=== PATIENT | male | born 1985 | race Caucasian/White ===

== ENCOUNTER 2021-07-17 18:01 | Inpatient (IN) ==
--- NOTE | 2021-07-17 18:02 | Emergency Department Note ---
Impression & Plan Acute hyponatremia, Syncope, CHI (closed head injury), Laceration of scalp, Alcohol use, Hypercalcemia, Transaminitis ED Provider Note NAME: CHARLINE PALMER AGE: 36 SEX: M : 1985 ARRIVES VIA: Ambulance INFORMANT: Patient, ED PROVIDER(S): Emery Heredia MD Chief Complaint: Fall, possible seizure HPI: Patient does present from [facility] as the patient was trying to obtain some supplements as the patient has been having some bilateral upper and lower extremity spasms. The patient reportedly was found down in the middle of and I will there was a thought that the patient may have had some seizure-like a ctivity. Patient does have some posterior occipital head pain which is with palpation given his recent fall. The patient also thinks that he may have bit his lip. Patient denies any tongue biting or incontinence. No prior history of seizures but the patient does typically drink a sixpack a day and did drink today. Patient does have some chronic back pain. Patient denies any fevers or chills. The patient does use tobacco but denies any drug use. The patient is vaccinated for COVID-19. Patient denies any nausea vomiting. Patient denies any abdominal pain. The patient other than the cramping does not complain of any numbness tingling or focal weakness. The patient denies any neck pain. Denies any slurred speech or facial droop. ROS: See HPI for pertinent positives and negatives. A total of 10 systems were reviewed and otherwise negative. Past medical history: See below Surgical history: See below Social history: See below Physical Exam: GENERAL: No apparent distress. EYE EXAM: Normal conjunctiva. PERRL, no anisocoria and EOM's grossly intact w/o pain. Head: Matted blood to the left posterior head with laceration approximately 1 cm. Scant bleeding noted. [OROPHARYNX: Moist mucus membranes. Grossly normal dentition. Slight abrasion to the inner portion of the inferior lip but without laceration. NECK: Supple, no nuchal rigidity, no adenopathy, non-tender. No signs of meningismus. FROM of the neck with good chin to chest and neck extension. No stridor. LUNGS: Clear to auscultation. Normal chest wall mechanics. HEART: NSR, no MRG. ABDOMEN: Abdomen soft, non-tender, normo-active bowel sounds, no masses, no rebound or guarding. BACK: No CVA TTP. SKIN: No rashes and no bruising. UPPER EXTREMITIES: Upper extremities are grossly normal. No obvious deformity o r TTP LOWER EXTREMITIES: Grossly normal, no edema. No obvious deformity or TTP. NEURO EXAM: A&O x3, cranial nerves II-XII grossly intact, normal speech, moves all 4 extremities on command w/o issue. Good finger to nose, no drift, no sensory deficits. Differential diagnoses: Epilepsy, infection, hypoglycemia, electrolyte abnormalities, cardiac sources, intracerebral event, trauma, toxicologic, n eurologic, syncope, as well as other pathologies. Course: Patient was seen and evaluated the bedside. Full history physical exam was performed. EKG interpreted by me Normal sinus rhythm, rate of 86, normal intervals, normal axis, T wave inversion in V2, T wave inversion in aVL. Not in contiguous leads Imaging Studies: See Below Cardiac monitoring: An order was placed for continuous cardiac monitoring. The monitor shows a rate of 92 with sinus rhythm. Procedures: Laceration repair performed by Dr. Heredia Location: Left occipital area Total length: 1 cm Complexity: Simple Verbal consent was obtained after the risks and benefits were explained, including but not limited to bleeding, scarring, infection, pain, and bone/joint/nerve damage. At this time, the risks of the procedure are less than the risks of NOT performing the procedure. A time out was taken and the correct patient and site identified. The skin was prepped with betadine. Copious irrigation was performed using soap and water. The skin was re-prepped with betadine and a sterile field set. The wound was explored for foreign bodies and none found. Examination revealed no injury to deep structures such as tendons, bone, or significant blood vessels. Debridement was not performed. The wound edges were approximated using 2 delores. Hemostasis and excellent approximation was achieved. Detailed wound care instructions and signs and symptoms of infection reviewed with the patient. No complications and the patient tolerated the procedure well. MDM: Patient did present due to concern for possible seizure and closed head injury. The patient does drink 6 pack daily. Blood work was obtained along with CT head and cervical spine. Patient's tetanus is up-to-date. Patient was given some At tate. Patient is white count of 11 with a normal H&H and platelet count. There was significant delay in obtaining the patient's electrolytes. The patient does have hyponatremia hypochloremia with slightly lower bicarb and anion gap. This may be consistent with dehydration and/or alcohol use. The patient does have mild transaminitis. Alcohol undetectable Covid negative. Patient CT head and cervical spine with no acute fracture dislocation or subluxation. Patient was given Librium and an additional dose of Ativan. The patient's scalp laceration was repaired. Nicotine patch was ordered. Given the patient's seizure hyponatremia and electrolyte abnormalities I did speak with the on-call hospitalist Dr. Mckeon and the patient was admitted to the medicine service. Past Med/Surg History Medical History No pertinent past medical history Surgical History No pertinent past surgical history Social History Smoking Status: Current every day smoker Tobacco Type: Cigarettes Hx Alcohol Use: Yes Hx Substance Use: No Immunizations: Vaccinated for COVID-19 Allergies Allergies Allergy/AdvReac Type Severity Reaction Status Date / Time No Known Allergies Allergy Verified 07/17/21 19:05 Home Meds Home Medications Medication Instructions Recorded Confirmed ibuprofen 200 mg tablet (Advil) 200 mg PO DIRECTED PRN 07/17/21 07/17/21 Results & Data (ED) Vital Signs Vital Signs - 24 hr 07/17/21 18:14 07/17/21 18:18 07/17/21 19:07 Temperature 37.0 C Temperature Source Oral Pulse Rate 93 H Pulse Rate [Left Radial] Pulse Rhythm Regular Pulse Rhythm [Left Radial] Pulse Strength Normal Pulse Strength [Left Radial] Respiratory Rate 23 14 Respiratory Effort / Characteristics Non-Labored Non-Labored Respiratory Depth Normal Normal Respiratory Pattern Regular Regular Blood Pressure 155/88 H 120/68 Blood Pressure [Left Arm] Blood Pressure Mean 110 85 Blood Pressure Mean [Left Arm] Blood Pressure Position Lying Blood Pressure Position [Left Arm] Pulse Oximetry 98 98 Oxygen Delivery Method Room Air Room Air Sepsis Recent Fever Within 48 Hours No Sepsis New/Unexplained Change in Mental Status No Sepsis Action Taken by Nursing No Action Required 07/17/21 19:30 07/17/21 20:00 07/17/21 20:01 Temperature Temperature Source Pulse Rate 83 Pulse Rate [Left Radial] 97 H Pulse Rhythm Pulse Rhythm [Left Radial] Regular Pulse Strength Pulse Strength [Left Radial] Normal Respiratory Rate 21 Respiratory Effort / Characteristics Non-Labored Respiratory Depth Normal Respiratory Pattern Regular Blood Pressure 129/68 138/74 Blood Pressure [Left Arm] 137/66 Blood Pressure Mean 88 95 Blood Pressure Mean [Left Arm] 89 Blood Pressure Position Blood Pressure Position [Left Arm] Lying Pulse Oximetry 98 Oxygen Delivery Method Room Air Sepsis Recent Fever Within 48 Hours Sepsis New/Unexplained Change in Mental Status Sepsis Action Taken by Nursing 07/17/21 20:20 07/17/21 21:00 Temperature Temperature Source Pulse Rate 92 H Pulse Rate [Left Radial] Pulse Rhythm Pulse Rhythm [Left Radial] Pulse Strength Pulse Strength [Left Radial] Respiratory Rate 21 Respiratory Effort / Characteristics Respiratory Depth Respiratory Pattern Blood Pressure 137/66 Blood Pressure [Left Arm] Blood Pressure Mean 89 Blood Pressure Mean [Left Arm] Blood Pressure Position Blood Pressure Position [Left Arm] Pulse Oximetry Oxygen Delivery Method Sepsis Recent Fever Within 48 Hours Sepsis New/Unexplained Change in Mental Status Sepsis Action Taken by Long Term Medications Current Medication List: was personally reviewed by me Laboratory Data Attestation: I reviewed the patient's lab results. Result diagrams: 07/17/21 18:13 07/17/21 20:32 Lab Results 07/17/21 07/17/21 07/17/21 Range/Units 18:11 18:13 18:13 WBC 11.80 H (4.8-10.8) K/uL RBC 4.45 L (4.7-6.1) M/uL Hgb 15.3 (14.0-18.0) g/dL Hct 42.3 (42-52) % MCV 95.1 (80-100) fL MCH 34.4 H (25-34) pg MCHC 36.2 H (32-36) g/dL RDW Std Deviation 40.6 (36.4-46.3) fL RDW Coeff of Randall 11.6 (11.5-14.5) % Plt Count 165 (130-400) K/uL MPV 10.3 (7.4-10.4) fL Immature Gran % (Auto) 0.1 % Neut % (Auto) 73.8 % Lymph % (Auto) 11.5 % Citrus % (Auto) 14.0 % Eos % (Auto) 0.5 % Baso % (Auto) 0.1 % Neut # (Auto) 8.71 H (1.4-6.5) K/uL Lymph # (Auto) 1.36 (1.2-3.4) K/uL Citrus # (Auto) 1.65 H (0.11-0.59) K/uL Eos # (Auto) 0.06 (0-0.5) K/uL Baso # (Auto) 0.01 (0-0.2) K/uL Immature Gran # (Auto) 0.01 (0.00-0.02) K/uL PT (9.0-12.0) Seconds INR (0.9-1.1) Sodium 120 L (136-145) mmol/L Potassium (3.5-5.1) mmol/L Chloride 80 L (98-107) mmol/L Carbon Dioxide 18 L (21-32) mmol/L Anion Gap 22 H (3-11) BUN 9 (6-23) mg/dl Creatinine 0.92 (0.6-1.4) mg/dl Est Cr Clr Drug Dosing 101.2 ml/min Est GFR ( Amer) 121.9 ml/min Est GFR (Non-Af Amer) 105.1 ml/min BUN/Creatinine Ratio 9.8 L (10-20) Glucose 117 H (70-99(Fasting)) mg/dl POC Glucose 119 H (70-99) mg/dl Osmolality (280-300) mOsm/kg Calcium 10.3 H (8.5-10.1) mg/dl Phosphorus 3.8 (2.5-4.9) mg/dl Magnesium 2.2 (1.7-2.4) mg/dl Total Bilirubin 1.3 H (0.2-1.0) mg/dl AST (13-39) U/L ALT 55 H (7-52) U/L Alkaline Phosphatase 109 H (34-104) U/L Total Creatine Kinase 743 H (30-223) U/L Total Protein 8.2 (6.0-8.3) gm/dl Albumin 5.1 H (3.4-5.0) gm/dl Globulin 3.1 (2.5-4.0) gm/dl Albumin/Globulin Ratio 1.6 (0.9-2) TSH (0.300-4.500) uIu/ml Ethyl Alcohol mg/dL (<10.0) mg/dl SARS-CoV-2, RNA, NAAT (NEGATIVE) 07/17/21 07/17/21 07/17/21 Range/Units 18:13 19:35 20:32 WBC (4.8-10.8) K/uL RBC (4.7-6.1) M/uL Hgb (14.0-18.0) g/dL Hct (42-52) % MCV (80-100) fL MCH (25-34) pg MCHC (32-36) g/dL RDW Std Deviation (36.4-46.3) fL RDW Coeff of Randall (11.5-14.5) % Plt Count (130-400) K/uL MPV (7.4-10.4) fL Immature Gran % (Auto) % Neut % (Auto) % Lymph % (Auto) % Citrus % (Auto) % Eos % (Auto) % Baso % (Auto) % Neut # (Auto) (1.4-6.5) K/uL Lymph # (Auto) (1.2-3.4) K/uL Citrus # (Auto) (0.11-0.59) K/uL Eos # (Auto) (0-0.5) K/uL Baso # (Auto) (0-0.2) K/uL Immature Gran # (Auto) (0.00-0.02) K/uL PT 10.0 (9.0-12.0) Seconds INR 1.0 (0.9-1.1) Sodium (136-145) mmol/L Potassium 4.1 (3.5-5.1) mmol/L Chloride (98-107) mmol/L Carbon Dioxide (21-32) mmol/L Anion Gap (3-11) BUN (6-23) mg/dl Creatinine (0.6-1.4) mg/dl Est Cr Clr Drug Dosing ml/min Est GFR ( Amer) ml/min Est GFR (Non-Af Amer) ml/min BUN/Creatinine Ratio (10-20) Glucose (70-99(Fasting)) mg/dl POC Glucose (70-99) mg/dl Osmolality (280-300) mOsm/kg Calcium (8.5-10.1) mg/dl Phosphorus (2.5-4.9) mg/dl Magnesium (1.7-2.4) mg/dl Total Bilirubin (0.2-1.0) mg/dl AST 75 H (13-39) U/L ALT (7-52) U/L Alkaline Phosphatase (34-104) U/L Total Creatine Kinase (30-223) U/L Total Protein (6.0-8.3) gm/dl Albumin (3.4-5.0) gm/dl Globulin (2.5-4.0) gm/dl Albumin/Globulin Ratio (0.9-2) TSH (0.300-4.500) uIu/ml Ethyl Alcohol mg/dL < 10.0 (<10.0) mg/dl SARS-CoV-2, RNA, NAAT (NEGATIVE) 07/17/21 07/17/21 07/17/21 Range/Units 21:03 21:31 21:31 WBC (4.8-10.8) K/uL RBC (4.7-6.1) M/uL Hgb (14.0-18.0) g/dL Hct (42-52) % MCV (80-100) fL MCH (25-34) pg MCHC (32-36) g/dL RDW Std Deviation (36.4-46.3) fL RDW Coeff of Randall (11.5-14.5) % Plt Count (130-400) K/uL MPV (7.4-10.4) fL Immature Gran % (Auto) % Neut % (Auto) % Lymph % (Auto) % Citrus % (Auto) % Eos % (Auto) % Baso % (Auto) % Neut # (Auto) (1.4-6.5) K/uL Lymph # (Auto) (1.2-3.4) K/uL Citrus # (Auto) (0.11-0.59) K/uL Eos # (Auto) (0-0.5) K/uL Baso # (Auto) (0-0.2) K/uL Immature Gran # (Auto) (0.00-0.02) K/uL PT (9.0-12.0) Seconds INR (0.9-1.1) Sodium (136-145) mmol/L Potassium (3.5-5.1) mmol/L Chloride (98-107) mmol/L Carbon Dioxide (21-32) mmol/L Anion Gap (3-11) BUN (6-23) mg/dl Creatinine (0.6-1.4) mg/dl Est Cr Clr Drug Dosing ml/min Est GFR ( Amer) ml/min Est GFR (Non-Af Amer) ml/min BUN/Creatinine Ratio (10-20) Glucose (70-99(Fasting)) mg/dl POC Glucose (70-99) mg/dl Osmolality 258 L (280-300) mOsm/kg Calcium (8.5-10.1) mg/dl Phosphorus (2.5-4.9) mg/dl Magnesium (1.7-2.4) mg/dl Total Bilirubin (0.2-1.0) mg/dl AST (13-39) U/L ALT (7-52) U/L Alkaline Phosphatase (34-104) U/L Total Creatine Kinase (30-223) U/L Total Protein (6.0-8.3) gm/dl Albumin (3.4-5.0) gm/dl Globulin (2.5-4.0) gm/dl Albumin/Globulin Ratio (0.9-2) TSH 0.729 (0.300-4.500) uIu/ml Ethyl Alcohol mg/dL (<10.0) mg/dl SARS-CoV-2, RNA, NAAT NEGATIVE (NEGATIVE) Administered Medications Discontinued Medications Acetaminophen (Acetaminophen 500 Mg Tab) 1,000 mg PO NOW STA Stop: 07/17/21 20:51 Last Admin: 07/17/21 21:00 Dose: 1,000 mg Documented by: [id number] Chlordiazepoxide HCl (Chlordiazepoxide Hcl 25 Mg Cap) 50 mg PO NOW ONE Stop: 07/17/21 20:51 Last Admin: 07/17/21 21:00 Dose: 50 mg Documented by: [id number] Gabapentin (Gabapentin 600 Mg Tab) 1,200 mg PO NOW STA Stop: 07/17/21 21:57 Last Admin: 07/17/21 22:18 Dose: 1,200 mg Documented by: [id number] Gabapentin (Gabapentin 1200mg Alcohol Withdrawal Load) 1 ea PO NOW STA; Protocol Stop: 07/17/21 22:17 Last Admin: 07/17/21 22:18 Dose: 1 ea Documented by: [id number] Multivitamins 10 ml/ Thiamine HCl 100 mg/ Folic Acid 1 mg/Sodium Chloride 1,011.2 mls @ 1,011.2 mls/hr IV .Q1H ONE Stop: 07/17/21 19:14 Last Infusion: 07/17/21 20:12 Dose: 0 mls/hr Documented by: [id number] Admin: 07/17/21 18:59 Dose: 1,011.2 mls/hr Documented by: [id number] Lorazepam (Ativan) 0.5 mg in 1 mls @ 1 mls/min IV NOW STA Stop: 07/17/21 18:18 Last Admin: 07/17/21 18:28 Dose: 1 mls/min Documented by: [id number] Lorazepam (Ativan) 0.5 mg in 1 mls @ 1 mls/min IV NOW STA Stop: 07/17/21 20:51 Last Admin: 07/17/21 20:59 Dose: 1 mls/min Documented by: [id number] Nicotine (Nicotine 21 Mg/24 Hr Tdsy) 21 mg TD NOW STA Stop: 07/17/21 20:52 Last Admin: 07/17/21 20:59 Dose: 21 mg Documented by: [id number] Imaging Data Radiologist's Impression: Cervical Spine CT 07/17/21 18:15 CT cervical spine wo con CT DOSE: 1368.57 mGy.cm CLINICAL HISTORY: 36 years-old Male with fall, seizure activity. Acute head and neck injury status post fall COMPARISON: Head CT of same day TECHNIQUE: Multiple axial CT images of the cervical spine were obtained without contrast. A dose lowering technique was utilized adhering to the principles of ALARA. FINDINGS: Multilevel mild intervertebral disc space narrowing with mild to moderate uncovertebral spurring and small posterior disc osteophyte complex formations. Minimal facet arthrosis. Mild C1-C2 degeneration. Mild multilevel neuroforaminal narrowing.. The cervical soft tissues appear unremarkable. Biapical pleural-parenchymal scarring. No pneumothorax. IMPRESSION: No acute cervical spine fracture or subluxation. ACT 112: Negative or not required by law. The above report was generated using voice recognition software. It may contain grammatical, syntax or spelling errors. Electronically signed by: Esa Cruz M.D. 07/17/2021 7:[address] 07/17/21 18:15 CT head/brain wo con CLINICAL HISTORY: 36 years-old Male with fall, occipital head strike, seizure activity. Acute head injury status post fall TECHNIQUE: Multiple axial CT images of the head were obtained without contrast. A dose lowering technique was utilized adhering to the principles of ALARA. COMPARISON: CT cervical spine of same day FINDINGS: No acute intracranial hemorrhage, midline shift, intracranial mass, hydrocephalus, territorial ischemia or abnormal extra-axial collection. The calvarium is intact. Left parietal scalp hematoma measures 9.0 x 1.2 cm The paranasal sinuses, mastoid air cells, and middle ear cavities are clear. IMPRESSION: 1. No acute intracranial abnormality or calvarial fracture. 2. Moderate sized left parietal scalp hematoma. ACT 112: Negative or not required by law. The above report was generated using voice recognition software. It may contain grammatical, syntax or spelling errors. Electronically signed by: Esa Cruz M.D. 07/17/2021 7:02 PM Chest X-Ray 07/17/21 21:13 XR chest 1V portable HISTORY: 36 years-old Male hyponatremia COMPARISON: None TECHNIQUE: Portable AP view of the chest FINDINGS: The cardiomediastinal and hilar silhouettes are within normal limits. No pneumothorax, pleural effusion, airspace consolidation or overt pulmonary edema. The bones of the chest appear grossly intact. IMPRESSION: No acute process. ACT 112: Negative or not required by law. The above report was generated using voice recognition software. It may contain grammatical, syntax or spelling errors. Electronically signed by: Esa Cruz M.D. 07/17/2021 10:07 PM Discharge Plan Visit Data Chief Complaint: Syncope ED Provider: Emery Heredia Discharge Problem: Acute hyponatremia, Syncope, CHI (closed head injury), Laceration of scalp, Alcohol use, Hypercalcemia, Transaminitis Patient Disposition: Admitted As Inpatient Discharge Instructions Interventions: ED Discharge Assessment Last Done: 07/17/21 23:41
[2021-07-17] MEDS ORDERED: MULTI-VITAMIN INFUSION 10 ML, THIAMINE HCL 100 MG, FOLIC ACID 1 MG in SODIUM CHLORIDE 0... IV ONE (18:15)
[2021-07-17] MEDS ORDERED: LORazepam 0.5 MG/1 ML VIAL IV STA ×2 (18:17→20:50)
[2021-07-17 18:22] LABS: Basophils # (auto) 0.01 K/uL (0-0.2); Basophils % (auto) 0.1 %; Eosinophils # (auto) 0.06 K/uL (0-0.5); Eosinophils % (auto) 0.5 %; Hematocrit (blood only) 42.3 % (42-52); Hemoglobin 15.3 g/dL (14.0-18.0); Immature Granulocytes # (auto) 0.01 K/uL (0.00-0.02); Immature Granulocytes % (auto) 0.1 %; Lymphocytes # (auto) 1.36 K/uL (1.2-3.4); Lymphocytes % (auto) 11.5 %; Mean Corpuscular Hemoglobin 34.4 pg (25-34); Mean Corpuscular Hgb Conc 36.2 g/dL (32-36); Mean Corpuscular Volume 95.1 fL (80-100); Mean Platelet Volume 10.3 fL (7.4-10.4); Monocytes # (auto) 1.65 K/uL (0.11-0.59); Neutrophils # (auto) 8.71 K/uL (1.4-6.5); Neutrophils % (auto) 73.8 %; Platelet Count 165 K/uL (130-400); RDW Coefficient of Variation 11.6 % (11.5-14.5); RDW Standard Deviation 40.6 fL (36.4-46.3); Red Blood Count 4.45 M/uL (4.7-6.1)
--- NOTE | 2021-07-17 19:04 | CT Scan Report ---
CT head/brain wo con CLINICAL HISTORY: 36 years-old Male with fall, occipital head strike, seizure activity. Acute head i njury status post fall TECHNIQUE: Multiple axial CT images of the head were obtained without contrast. A dose lowering tech nique was utilized adhering to the principles of ALARA. COMPARISON: CT cervical spine of same day FINDINGS: No acute intracranial hemorrhage, midline shift, intracranial mass, hydrocephalus, territorial ischem ia or abnormal extra-axial collection. The calvarium is intact. Left parietal scalp hematoma measures 9.0 x 1.2 cm The paranasal sinuses, ma stoid air cells, and middle ear cavities are clear. IMPRESSION: 1. No acute intracranial abnormality or calvarial fracture. 2. Moderate sized left parietal scalp hematoma. ACT 112: Negative or not required by law. The above report was generated using voice recognition software. It may contain grammatical, syntax o r spelling errors. Electronically signed by: Esa Cruz M.D. 07/17/2021 7:02 PM
--- NOTE | 2021-07-17 19:07 | CT Scan Report ---
CT cervical spine wo con CT DOSE: 1368.57 mGy.cm CLINICAL HISTORY: 36 years-old Male with fall, seizure activity. Acute head and neck injury status p ost fall COMPARISON: Head CT of same day TECHNIQUE: Multiple axial CT images of the cervical spine were obtained without contrast. A dose low ering technique was utilized adhering to the principles of ALARA. FINDINGS: Multilevel mild intervertebral disc space narrowing with mild to moderate uncovertebral spu rring and small posterior disc osteophyte complex formations. Minimal facet arthrosis. Mild C1-C2 deg eneration. Mild multilevel neuroforaminal narrowing.. The cervical soft tissues appear unremarkable. Biapical pleural-parenchymal scarring. No pneumothora x. IMPRESSION: No acute cervical spine fracture or subluxation. ACT 112: Negative or not required by law. The above report was generated using voice recognition software. It may contain grammatical, syntax o r spelling errors. Electronically signed by: Esa Cruz M.D. 07/17/2021 7:05 PM
[2021-07-17 20:11] LABS: Albumin Globulin Ratio 1.6 (0.9-2); Albumin Level 5.1 gm/dl (3.4-5.0); BUN Creatinine Ratio 9.8 (10-20); Bilirubin,Total 1.3 mg/dl (0.2-1.0); Calcium 10.3 mg/dl (8.5-10.1); Creatinine Clr Calc Pharmacy 101.2 ml/min; Est GFR (African American) 121.9 ml/min; Est GFR (Non-African American) 105.1 ml/min; Globulin 3.1 gm/dl (2.5-4.0); Magnesium 2.2 mg/dl (1.7-2.4); Phosphorus 3.8 mg/dl (2.5-4.9); Total Protein 8.2 gm/dl (6.0-8.3)
[2021-07-17] MEDS ORDERED: chlordiazePOXIDE HCl 25 MG CAP PO ONE (20:50)
[2021-07-17] MEDS ORDERED: ACETAMINOPHEN 500 MG TAB PO STA (20:50)
[2021-07-17] MEDS ORDERED: NICOTINE 21 MG/24 HR TDSY TD STA (20:51)
[2021-07-17 21:02] LABS: Potassium 4.1 mmol/L (3.5-5.1)
[2021-07-17] MEDS ORDERED: GABAPENTIN 600 MG TAB PO STA (21:56)
--- NOTE | 2021-07-17 22:08 | XRay Report ---
XR chest 1V portable HISTORY: 36 years-old Male hyponatremia COMPARISON: None TECHNIQUE: Portable AP view of the chest FINDINGS: The cardiomediastinal and hilar silhouettes are within normal limits. No pneumothorax, pleural effusi on, airspace consolidation or overt pulmonary edema. The bones of the chest appear grossly intact. IMPRESSION: No acute process. ACT 112: Negative or not required by law. The above report was generated using voice recognition software. It may contain grammatical, syntax o r spelling errors. Electronically signed by: Esa Cruz M.D. 07/17/2021 10:07 PM
--- NOTE | 2021-07-17 22:10 | History & Physical Report ---
Date of Service July 17, 2021 Assessment & Plan (1) New onset seizure: Plan: Likely alcohol withdrawal seizures Threshold probably lowered by hyponatremia Alcoholic hepatitis, good prognosis with negative Maddrey's DF score Ongoing tobacco abuse PCU Seizure precautions Ativan as needed active seizures EEG, MRI brain for seizure work-up Neurology consult Re: New onset seizures KENNY S, DT precautions Careful correction of sodium Hyponatremia work-up Nephrology consult if with worsening Nicotine patch DVT prophylaxis. SCDs Re: Traumatic bleeding scalp wound Full code Text document was generated using [employer] voice recognition software. It may contain grammatical or spelling errors. Kindly contact undersigned for clarification of any documentation item in question. History of Present Illness Chief Complaint: Blacked out Primary Care Provider: NO PCP History obtained from patient and records. Medical history significant for alcohol and tobacco abuse. Patient noted had a syncopal event at [facility] this afternoon. Upper and lower extremity spasms noted. Patient thinks he might have bit his lip. No incontinence symptoms. Bleeding posterior head wound from head trauma. Patient denies chest pain, S OB. No prior episodes. Last drink was this morning. Patient emembers waking up in the ambulance on route to the hospital. Scalp wound repaired at the ER. 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 Allergies Allergy/AdvReac Type Severity Reaction Status Date / Time No Known Allergies Allergy Verified 07/17/21 19:05 Home Medications Medication Instructions Recorded Confirmed Type ibuprofen 200 mg tablet (Advil) 200 mg PO DIRECTED PRN 07/17/21 07/17/21 History Past Med/Surg History Medical History No pertinent past medical history Surgical History No pertinent past surgical history Social History Smoking Status: Current every day smoker Tobacco Type: Cigarettes Hx Alcohol Use: Yes Alcohol type: beer Hx Substance Use: No Feels Safe at Home: Yes Safety Concerns: Feels Safe At This Time Review of Systems Review of Systems: As per HPI, all 10 systems reviewed, all other ROS negative Physical Exam Physical Exam: GENERAL: Tremulous, no respiratory distress SKIN: Normal color, warm HEENT: Repaired posterior scalp wound with dried blood [place] palpebral conjunctivae, no ptosis, dry buccal mucosa NECK : Supple, no tenderness CHEST : Decreased breath sounds, expiratory wheezes, no tenderness HEART : RRR, no obvious murmurs ABDOMEN: no distention, nontender EXTREMITIES : No LE swelling/tenderness, no other conspicuous deformities noted NEUROLOGIC : coherent, no facial asymmetry, tremulous, no other gross focality Results & Data Results & Data ([facility]) Vital Signs (Past 12 Hours) Vital Signs Temp Pulse Pulse Resp BP BP Pulse Ox 07/17/21 21:00 137/66 07/17/21 20:20 92 H 21 07/17/21 20:01 138/74 07/17/21 20:00 83 97 H 21 137/66 98 07/17/21 19:30 129/68 07/17/21 19:07 120/68 07/17/21 18:18 14 98 07/17/21 18:14 37.0 C 93 H 23 155/88 H 98 Laboratory Results Laboratory Results WBC 11.80 K/uL (4.8-10.8) H 07/17/21 18:13 RBC 4.45 M/uL (4.7-6.1) L 07/17/21 18:13 Hgb 15.3 g/dL (14.0-18.0) 07/17/21 18:13 Hct 42.3 % (42-52) 07/17/21 18:13 MCV 95.1 fL (80-100) 07/17/21 18:13 MCH 34.4 pg (25-34) H 07/17/21 18:13 MCHC 36.2 g/dL (32-36) H 07/17/21 18:13 RDW Std Deviation 40.6 fL (36.4-46.3) 07/17/21 18:13 RDW Coeff of Randall 11.6 % (11.5-14.5) 07/17/21 18:13 Plt Count 165 K/uL (130-400) 07/17/21 18:13 MPV 10.3 fL (7.4-10.4) 07/17/21 18:13 Immature Gran % (Auto) 0.1 % 07/17/21 18:13 Neut % (Auto) 73.8 % 07/17/21 18:13 Lymph % (Auto) 11.5 % 07/17/21 18:13 Worth % (Auto) 14.0 % 07/17/21 18:13 Eos % (Auto) 0.5 % 07/17/21 18:13 Baso % (Auto) 0.1 % 07/17/21 18:13 Neut # (Auto) 8.71 K/uL (1.4-6.5) H 07/17/21 18:13 Lymph # (Auto) 1.36 K/uL (1.2-3.4) 07/17/21 18:13 Worth # (Auto) 1.65 K/uL (0.11-0.59) H 07/17/21 18:13 Eos # (Auto) 0.06 K/uL (0-0.5) 07/17/21 18:13 Baso # (Auto) 0.01 K/uL (0-0.2) 07/17/21 18:13 Immature Gran # (Auto) 0.01 K/uL (0.00-0.02) 07/17/21 18:13 Sodium 120 mmol/L (136-145) L 07/17/21 18:13 Potassium 4.1 mmol/L (3.5-5.1) 07/17/21 20:32 Chloride 80 mmol/L (98-107) L 07/17/21 18:13 Carbon Dioxide 18 mmol/L (21-32) L 07/17/21 18:13 Anion Gap 22 (3-11) H 07/17/21 18:13 BUN 9 mg/dl (6-23) 07/17/21 18:13 Creatinine 0.92 mg/dl (0.6-1.4) 07/17/21 18:13 Est Cr Clr Drug Dosing 101.2 ml/min 07/17/21 18:13 Est GFR ( Amer) 121.9 ml/min 07/17/21 18:13 Est GFR (Non-Af Amer) 105.1 ml/min 07/17/21 18:13 BUN/Creatinine Ratio 9.8 (10-20) L 07/17/21 18:13 Glucose 117 mg/dl (70-99(Fasting)) H 07/17/21 18:13 POC Glucose 119 mg/dl (70-99) H 07/17/21 18:11 Osmolality 258 mOsm/kg (280-300) L 07/17/21 21:31 Calcium 10.3 mg/dl (8.5-10.1) H 07/17/21 18:13 Phosphorus 3.8 mg/dl (2.5-4.9) 07/17/21 18:13 Magnesium 2.2 mg/dl (1.7-2.4) 07/17/21 18:13 Total Bilirubin 1.3 mg/dl (0.2-1.0) H 07/17/21 18:13 AST 75 U/L (13-39) H 07/17/21 20:32 ALT 55 U/L (7-52) H 07/17/21 18:13 Alkaline Phosphatase 109 U/L (34-104) H 07/17/21 18:13 Total Creatine Kinase 743 U/L (30-223) H 07/17/21 18:13 Total Protein 8.2 gm/dl (6.0-8.3) 07/17/21 18:13 Albumin 5.1 gm/dl (3.4-5.0) H 07/17/21 18:13 Globulin 3.1 gm/dl (2.5-4.0) 07/17/21 18:13 Albumin/Globulin Ratio 1.6 (0.9-2) 07/17/21 18:13 Ethyl Alcohol mg/dL < 10.0 mg/dl (<10.0) 07/17/21 19:35 SARS-CoV-2, RNA, NAAT NEGATIVE (NEGATIVE) 07/17/21 21:[address] 07/17/21 18:15 CT cervical spine wo con CT DOSE: 1368.57 mGy.cm CLINICAL HISTORY: 36 years-old Male with fall, seizure activity. Acute head and neck injury status post fall COMPARISON: Head CT of same day TECHNIQUE: Multiple axial CT images of the cervical spine were obtained without contrast. A dose lowering technique was utilized adhering to the principles of ALARA. FINDINGS: Multilevel mild intervertebral disc space narrowing with mild to moderate uncovertebral spurring and small posterior disc osteophyte complex formations. Minimal facet arthrosis. Mild C1-C2 degeneration. Mild multilevel neuroforaminal narrowing.. The cervical soft tissues appear unremarkable. Biapical pleural-parenchymal scarring. No pneumothorax. IMPRESSION: No acute cervical spine fracture or subluxation. ACT 112: Negative or not required by law. The above report was generated using voice recognition software. It may contain grammatical, syntax or spelling errors. Electronically signed by: Esa Cruz M.D. 07/17/2021 7:[address] 07/17/21 18:15 CT head/brain wo con CLINICAL HISTORY: 36 years-old Male with fall, occipital head strike, seizure activity. Acute head injury status post fall TECHNIQUE: Multiple axial CT images of the head were obtained without contrast. A dose lowering technique was utilized adhering to the principles of ALARA. COMPARISON: CT cervical spine of same day FINDINGS: No acute intracranial hemorrhage, midline shift, intracranial mass, hydrocephalus, territorial ischemia or abnormal extra-axial collection. The calvarium is intact. Left parietal scalp hematoma measures 9.0 x 1.2 cm The paranasal sinuses, mastoid air cells, and middle ear cavities are clear. IMPRESSION: 1. No acute intracranial abnormality or calvarial fracture. 2. Moderate sized left parietal scalp hematoma. ACT 112: Negative or not required by law. The above report was generated using voice recognition software. It may contain grammatical, syntax or spelling errors. Electronically signed by: Esa Cruz M.D. 07/17/2021 7:02 PM Chest X-Ray 07/17/21 21:13 XR chest 1V portable HISTORY: 36 years-old Male hyponatremia COMPARISON: None TECHNIQUE: Portable AP view of the chest FINDINGS: The cardiomediastinal and hilar silhouettes are within normal limits. No pneumothorax, pleural effusion, airspace consolidation or overt pulmonary edema. The bones of the chest appear grossly intact. IMPRESSION: No acute process. ACT 112: Negative or not required by law. The above report was generated using voice recognition software. It may contain grammatical, syntax or spelling errors. Electronically signed by: Esa Cruz M.D. 07/17/2021 10:07 PM Diagnostic Findings EKG as per my interpretation: Rate 85, NSR, normal axis, incomplete RBBB, LAE, no ischemia
[2021-07-17] MEDS ORDERED: LORazepam 1 MG/2 ML VIAL IV PRN ×2 (22:16)
[2021-07-17] MEDS ORDERED: GABAPENTIN 1200MG ALCOHOL WITHDRAWAL LOAD PO STA (22:16)
[2021-07-17] MEDS ORDERED: LORazepam 2 MG/4 ML VIAL IV PRN (22:16)
[2021-07-17] MEDS ORDERED: LORazepam 3 MG/6 ML VIAL IV PRN (22:16)
[2021-07-17] MEDS ORDERED: ATIVAN IV ALCOHOL WITHDRAWL IV PRN (22:16)
[2021-07-17] MEDS ORDERED: ACETAMINOPHEN 325 MG TAB PO PRN (22:20)
[2021-07-17] MEDS ORDERED: oxyCODONE HCL IR 5 MG TAB (IMMEDIATE RELEASE) PO PRN (22:20)
[2021-07-17] MEDS ORDERED: PROMETHAZINE HCL 12.5 MG in SODIUM CHLORIDE 0.9% 50 ML IV PRN (23:42)
[2021-07-18] MEDS: THIAMINE HCL 100 MG TAB PO SCH ×2 (00:47→10:43)
[2021-07-18] MEDS: FOLIC ACID 1 MG TAB PO SCH ×2 (00:47→10:44)
[2021-07-18] MEDS ORDERED: SODIUM CHLORIDE 0.9% 1000ML 1,000 ML IV ONE (01:42)
[2021-07-18] MEDS: GABAPENTIN 600 MG TAB PO SCH ×3 (04:25→19:03)
[2021-07-18 06:54] LABS: Basophils # (auto) 0.02 K/uL (0-0.2); Basophils % (auto) 0.3 %; Eosinophils # (auto) 0.16 K/uL (0-0.5); Eosinophils % (auto) 2.3 %; Hematocrit (blood only) 37.9 % (42-52); Hemoglobin 13.4 g/dL (14.0-18.0); Immature Granulocytes # (auto) 0.01 K/uL (0.00-0.02); Immature Granulocytes % (auto) 0.1 %; Lymphocytes # (auto) 0.92 K/uL (1.2-3.4); Mean Corpuscular Hemoglobin 33.7 pg (25-34); Mean Corpuscular Hgb Conc 35.4 g/dL (32-36); Mean Corpuscular Volume 95.2 fL (80-100); Monocytes # (auto) 0.89 K/uL (0.11-0.59); Monocytes % (auto) 12.6 %; Neutrophils # (auto) 5.05 K/uL (1.4-6.5); Neutrophils % (auto) 71.7 %; Platelet Count 145 K/uL (130-400); RDW Coefficient of Variation 11.7 % (11.5-14.5); RDW Standard Deviation 40.9 fL (36.4-46.3); Red Blood Count 3.98 M/uL (4.7-6.1); White Blood Count 7.05 K/uL (4.8-10.8)
[2021-07-18 07:17] LABS: Alanine Aminotransferase 44 U/L (7-52); Albumin Globulin Ratio 1.7 (0.9-2); Albumin Level 3.9 gm/dl (3.4-5.0); Alkaline Phosphatase 84 U/L (34-104); Anion Gap 8 (3-11); Aspartate Aminotransferase 72 U/L (13-39); BUN Creatinine Ratio 12.7 (10-20); Bilirubin,Total 1.4 mg/dl (0.2-1.0); Blood Urea Nitrogen 7 mg/dl (6-23); Calcium 8.2 mg/dl (8.5-10.1); Carbon Dioxide 23 mmol/L (21-32); Chloride 95 mmol/L (98-107); Creatinine Clr Calc Pharmacy 169.2 ml/min; Est GFR (African American) > 150.0 ml/min; Est GFR (Non-African American) 132.2 ml/min; Globulin 2.3 gm/dl (2.5-4.0); Glucose 77 mg/dl (70-99(Fasting)); Potassium 3.6 mmol/L (3.5-5.1); Sodium 126 mmol/L (136-145); Total Protein 6.2 gm/dl (6.0-8.3)
[2021-07-18] MEDS ORDERED: GADOBUTROL 30ML VIAL IV ONE (09:40)
--- NOTE | 2021-07-18 09:58 | Magnetic Resonance Report ---
MRI OF THE BRAIN WITHOUT AND WITH IV CONTRAST SEIZURE PROTOCOL CLINICAL HISTORY: Seizure. Fall. COMPARISON STUDY: Head CT July 17, 2021. TECHNIQUE: Utilizing a 1.5 Rosie magnet and dedicated coil, multiplanar, multiecho imaging of the br ain was performed pre and postcontrast administration. IV administration of 6.5 mL of Gadavist contr ast was uneventful. Thin cut coronal T2 imaging was performed according to seizure protocol. FINDINGS: There are no foci of restricted diffusion to suggest acute infarct. No acute intracranial h emorrhage, midline shift or mass effect is present. Ventricular system is normal. Basal cisterns are patent. There are no extra-axial collections. Flow-voids for the major intracranial vessels are prese nt. There is no intracranial mass or pathologic enhancement. Calvarial signal is within normal limits . Note is made of a moderate-sized left parietal scalp contusion as shown on head CT. There is no sandi dence for sinusitis. There is no mastoid fluid. There is no MRI evidence for mesial temporal sclerosi s. IMPRESSION: 1. No acute intracranial findings. 2. No intracranial mass or pathologic enhancement. 3. Moderate sized left parietal scalp contusion, as shown on head CT. ACT 112: Negative or not required by law. Electronically signed by: Octavio Montes M.D. 07/18/2021 9:57 AM
[2021-07-18] MEDS: MULTIVITAMIN TAB PO SCH (10:44)
--- NOTE | 2021-07-18 11:52 | Electrocardiogram Report ---
Test Reason : Blood Pressure : / mmHG Vent. Rate : 086 BPM Atrial Rate : 086 BPM P-R Int : 132 ms QRS Dur : 106 ms QT Int : 372 ms P-R-T Axes : 080 052 073 degrees QTc Int : 445 ms Normal sinus rhythm Possible Left atrial enlargement RSR' or QR pattern in V1 suggests right ventricular conduction delay Borderline ECG No previous ECGs available Confirmed by Brady Markham ([id number]) on 07/18/2021 11:51:27 AM Referred By: REFERRED SELF Confirmed By:Brady Markham
[2021-07-18] MEDS: NICOTINE 14 MG/24 HR PATCH TD SCH ×2 (16:14→23:59)
--- NOTE | 2021-07-18 16:46 | Hospitalist Progress Note ---
Date of Service July 18, 2021 Assessment & Plan (1) Syncope: Plan: He was brought by EMS to the ER after having a syncopal episode at [facility] Might be related to seizure activity from alcohol intake vs hyponatremia CT head no acute intracranial abnormality or calvarial fracture. Moderate sized left parietal scalp hematoma. MRI head showed no acute intracranial findings.No intracranial mass or pathologic enhancement. Moderate sized left parietal scalp contusion, as shown on head CT Neuro consult- pending No focal neuro deficit Ativan prn for seizure Pt was advised not to drive until seizure free for 6 months. Avoid bathing/swimming alone and high level activity Continue seizure activity Continue monitor closely Alcohol abuse Alcohol level less than 10 Last drink was last night Denies any history of alcohol withdrawn or DT Continue alcohol withdrawal protocol with Ativan and gabapentin Continue thiamine and folic acid Pt is not interested to go to inpatient alcohol rehab Counseling on alcohol cessation Hyponatremia possible related to poor oral intake and alcohol abuse Na on admission 120 received IVF and Na 132 now His sodium corrected to fast, will start on D5W at 50cc Check BMP at midnight Transaminitis AST 75, ALT 55 and Alk phosp 743 on admission Mostly due to Alcohol abuse LFT improved with AST 73 and ALT 44 Continue monitor CMP Leukocytosis WBC on admission 11.8 Mostly reactive No sign of infection WBC normalized Tobacco abuse Continue nicotine patch Counseling on tobacco abuse DVT on SCD due to left parietal scalp hematoma. Disposition Willl discharge once medically stable Admission and Anticipated Discharge Date Admission Date: July 17, 2021 Subjective Pt was seen and examined for follow up of alcohol abuse and possible seizure Lying in bed with no acute distress with mother at bedside I asked pt for permission and Pt said that he is ok to speak in the presence of his mother Pt said that he feels fine He said that he remembered when he was at [facility] looking for magnesium and B12 supplement He said that he was buying them for his cramp He said the next thing he woke up and found himself in the ambulance He said that he drink about 6-8 beers and his last drink was last night Pt he is very anxious to go home Denies any hallucination, chest pain, palpitation, sob and fever Review of Systems Review of Systems: All systems reviewed & are unremarkable except as noted in Subjective Physical Exam Physical Exam: General- No acute distress Head- +Laceration of Left side (parietal) scalp area Eyes- PERRL, EOMI, ENT- oropharynx clear Neck- supple, no JVD Lungs- clear to auscultation Heart- regular rhythm; no murmur Abdomen- normal bowel sounds, soft, nontender Extremities- no calf tenderness Neuro- alert, oriented x 3; PERRL, EOMI; no facial palsy; no dysarthria Skin- warm & dry, covers with tattoos (1) Syncope Syncope type: unspecified Qualified Code(s): R55 - Syncope and collapse
[2021-07-18] MEDS ORDERED: DEXTROSE 5% 500 ML IV SCH (18:45)
[2021-07-18] MEDS ORDERED: MELATONIN 3 MG TAB PO PRN (22:22)
[2021-07-19 00:25] LABS: BUN Creatinine Ratio 12.5 (10-20); Calcium 8.7 mg/dl (8.5-10.1); Creatinine Clr Calc Pharmacy 129.3 ml/min; Est GFR (African American) 137.2 ml/min; Est GFR (Non-African American) 118.3 ml/min; Potassium 3.9 mmol/L (3.5-5.1)
[2021-07-19] MEDS: GABAPENTIN 600 MG TAB PO SCH ×2 (02:51→09:18)
[2021-07-19 06:52] LABS: Hematocrit (blood only) 38.6 % (42-52); Hemoglobin 13.5 g/dL (14.0-18.0); Mean Corpuscular Hemoglobin 34.4 pg (25-34); Mean Corpuscular Volume 98.2 fL (80-100); Mean Platelet Volume 10.1 fL (7.4-10.4); Platelet Count 162 K/uL (130-400); RDW Coefficient of Variation 11.8 % (11.5-14.5); RDW Standard Deviation 42.7 fL (36.4-46.3); Red Blood Count 3.93 M/uL (4.7-6.1); White Blood Count 6.37 K/uL (4.8-10.8)
[2021-07-19] MEDS: MULTIVITAMIN TAB PO SCH (09:18)
[2021-07-19] MEDS: THIAMINE HCL 100 MG TAB PO SCH (09:18)
[2021-07-19] MEDS: FOLIC ACID 1 MG TAB PO SCH (09:18)
--- NOTE | 2021-07-19 11:11 | Neurology Consultation ---
Date of Consultation July 19, 2021 Assessment & Plan (1) New onset seizure: 1. MRI brain with no seizure focus 2. EEG- ordered 3. EtoH abuse - may withdrawal seizure 4. seizure protocol 5. no driving for 6 months from last seizure date, no heights, no bathing or swimming alone (2) Syncope: Supervising Physician Co-Signing Physician Notes I have seen and discussed above patient with Dr Samuel Russell History of Present Illness Reason for Consultation: seizure Requesting Physician: Rajwinder Trinidad MD Attending Physician: Rajwinder Trinidad MD History of Present Illness Killian is a 36 year old male who presents to [facility] ED 07/17/21 after he was trying to obtain some supplements at [facility] for some bilateral upper and lower extremity spasms. He was found down and was thought to have some seizure-like activity.He had some posterior occipital head pain with his recent fall. He may have bit his lip.He does typically drink a sixpack a day and did drink that day. He also has some chronic back pain.He does use tobacco but denies any drug use. Allergies Allergy/AdvReac Type Severity Reaction Status Date / Time No Known Allergies Allergy Verified 07/17/21 19:05 Home Medications Medication Instructions Recorded Confirmed Type ibuprofen 200 mg tablet (Advil) 200 mg PO DIRECTED PRN 07/17/21 07/17/21 History folic acid 1 mg tablet 1 mg PO QAM #1 tab 07/19/21 Rx multivitamin with folic acid 400 1 tab PO QAM #1 tab 07/19/21 Rx mcg tablet (Daily-Alessandro (with folic acid)) thiamine HCl (vitamin B1) 100 mg 100 mg PO QAM #1 tab 07/19/21 Rx tablet Patient History Medical History No pertinent past medical history Surgical History No pertinent past surgical history Social History Smoking Status: Current every day smoker Tobacco Type: Cigarettes Hx Alcohol Use: Yes Alcohol type: beer Hx Substance Use: No Feels Safe at Home: Yes Safety Concerns: Feels Safe At This Time Assistive Devices: None Results & Data ([facility]) Vital Signs (Past 12 Hours) Vital Signs Temp Pulse Resp BP Pulse Ox 07/19/21 08:00 36.8 C 95 H 18 132/91 98 07/19/21 02:51 84 14 121/61 97 07/18/21 23:50 36.7 C 83 16 138/105 H 97 Laboratory Results Abnormal lab results 07/18/21 07/18/21 07/19/21 Range/Units 12:03 23:53 06:32 RBC 3.93 L (4.7-6.1) M/uL Hgb 13.5 L (14.0-18.0) g/dL Hct 38.6 L (42-52) % MCH 34.4 H (25-34) pg Sodium 132 L 131 L (136-145) mmol/L Diagnostic Findings CT c spine-No acute cervical spine fracture or subluxation. CT head-1. No acute intracranial abnormality or calvarial fracture. Moderate sized left parietal scalp hematoma. CXR-The cardiomediastinal and hilar silhouettes are within normal limits. No pneumothorax, pleural effusion, airspace consolidation or overt pulmonary edema. The bones of the chest appear grossly intact MRI brain-No acute intracranial findings. No intracranial mass or pathologic enhancement. Moderate sized left parietal scalp contusion, as shown on head CT. (1) Syncope Syncope type: unspecified Qualified Code(s): R55 - Syncope and collapse
--- NOTE | 2021-07-19 14:16 | Electroencephalogram ---
EEG Procedure Note Date of Service July 19, 2021 Start / End Times Start Time: 11:07 End Time: 11:27 Referring Physician MARCUS Silver History A 36 year old male with possible seizure. Found to have hyponatremia in the setting of chronic acohol use. EEG performed for evaluation of epileptiform activity. Home Medication List Medication Instructions Recorded Confirmed Type ibuprofen 200 mg tablet (Advil) 200 mg PO DIRECTED PRN 07/17/21 07/17/21 History folic acid 1 mg tablet 1 mg PO QAM #1 tab 07/19/21 Rx multivitamin with folic acid 400 1 tab PO QAM #1 tab 07/19/21 Rx mcg tablet (Daily-Alessandro (with folic acid)) thiamine HCl (vitamin B1) 100 mg 100 mg PO QAM #1 tab 07/19/21 Rx tablet Inpatient Medication List Folic Acid (Folic Acid 1 Mg Tab) 1 mg PO QAM [facility] Stop: 08/16/21 23:41 Last Admin: 07/19/21 09:18 Dose: 1 mg Documented by: [id number] Admin: 07/18/21 10:44 Dose: 1 mg Documented by: [id number] Admin: 07/18/21 00:47 Dose: 1 mg Documented by: [id number] Melatonin (Melatonin 3 Mg Tab) 3 mg PO HS PRN PRN Reason: Sleep Stop: 08/17/21 22:21 Last Admin: 07/18/21 23:59 Dose: 3 mg Documented by: [id number] Miscellaneous (Remove Nicoderm Patch) 1 ea N/A DAILY@0859 [facility] Stop: 08/18/21 08:58 Last Admin: 07/19/21 09:17 Dose: 1 ea Documented by: [id number] Multivitamins (Multivitamin Tab) 1 tab PO QAM [facility] Stop: 08/17/21 08:59 Last Admin: 07/19/21 09:18 Dose: 1 tab Documented by: [id number] Admin: 07/18/21 10:44 Dose: 1 tab Documented by: [id number] Nicotine (Nicotine 14 Mg/24 Hr Patch) 14 mg TD HS [facility] Stop: 08/17/21 20:59 Last Admin: 07/18/21 23:59 Dose: 14 mg Documented by: [id number] Admin: 07/18/21 16:14 Dose: 14 mg Documented by: [id number] Thiamine HCl (Thiamine Hcl 100 Mg Tab) 100 mg PO QAM [facility] Stop: 08/16/21 23:41 Last Admin: 07/19/21 09:18 Dose: 100 mg Documented by: [id number] Admin: 07/18/21 10:43 Dose: 100 mg Documented by: [id number] Admin: 07/18/21 00:47 Dose: 100 mg Documented by: [id number] Discontinued Medications Acetaminophen (Acetaminophen 500 Mg Tab) 1,000 mg PO NOW STA Stop: 07/17/21 20:51 Last Admin: 07/17/21 21:00 Dose: 1,000 mg Documented by: [id number] Chlordiazepoxide HCl (Chlordiazepoxide Hcl 25 Mg Cap) 50 mg PO NOW ONE Stop: 07/17/21 20:51 Last Admin: 07/17/21 21:00 Dose: 50 mg Documented by: [id number] Gabapentin (Gabapentin 600 Mg Tab) 1,200 mg PO NOW STA Stop: 07/17/21 21:57 Last Admin: 07/17/21 22:18 Dose: 1,200 mg Documented by: [id number] Gabapentin (Gabapentin 1200mg Alcohol Withdrawal Load) 1 ea PO NOW STA; Protocol Stop: 07/17/21 22:17 Last Admin: 07/17/21 22:18 Dose: 1 ea Documented by: [id number] Gabapentin (Gabapentin 600 Mg Tab) 600 mg PO Q6H [facility] Stop: 07/18/21 10:16 Last Admin: 07/18/21 10:45 Dose: 600 mg Documented by: [id number] Admin: 07/18/21 04:25 Dose: 600 mg Documented by: [id number] Gabapentin (Gabapentin 600 Mg Tab) 600 mg PO Q8H [facility] Stop: 07/19/21 10:16 Last Admin: 07/19/21 09:18 Dose: 600 mg Documented by: [id number] Admin: 07/19/21 02:51 Dose: 600 mg Documented by: [id number] Admin: 07/18/21 19:03 Dose: 600 mg Documented by: [id number] Gadobutrol (Gadobutrol 30ml Vial) 6.5 ml IV ONCE ONE Stop: 07/18/21 09:41 Last Admin: 07/18/21 09:41 Dose: 6.5 ml Documented by: [id number] Multivitamins 10 ml/ Thiamine HCl 100 mg/ Folic Acid 1 mg/Sodium Chloride 1,011.2 mls @ 1,011.2 mls/hr IV .Q1H ONE Stop: 07/17/21 19:14 Last Infusion: 07/17/21 20:12 Dose: 0 mls/hr Documented by: [id number] Admin: 07/17/21 18:59 Dose: 1,011.2 mls/hr Documented by: [id number] Lorazepam (Ativan) 0.5 mg in 1 mls @ 1 mls/min IV NOW STA Stop: 07/17/21 18:18 Last Admin: 07/17/21 18:28 Dose: 1 mls/min Documented by: [id number] Lorazepam (Ativan) 0.5 mg in 1 mls @ 1 mls/min IV NOW STA Stop: 07/17/21 20:51 Last Admin: 07/17/21 20:59 Dose: 1 mls/min Documented by: [id number] Sodium Chloride (Nss 1000ml) 1,000 mls @ 999 mls/hr IV .Q1H1M ONE Stop: 07/18/21 02:42 Last Infusion: 07/18/21 03:23 Dose: 0 mls/hr Documented by: [id number] Admin: 07/18/21 02:10 Dose: 999 mls/hr Documented by: [id number] Dextrose (D5w) 500 mls @ 60 mls/hr IV .Q8H20M [facility] Stop: 07/19/21 03:04 Last Infusion: 07/19/21 03:24 Dose: 0 mls/hr Documented by: [id number] Admin: 07/18/21 19:03 Dose: 60 mls/hr Documented by: [id number] Miscellaneous (Remove Nicoderm Patch) 1 ea N/A DAILY@0859 [facility] Stop: 07/18/21 09:00 Last Admin: 07/18/21 09:00 Dose: 1 ea Documented by: [id number] Nicotine (Nicotine 21 Mg/24 Hr Tdsy) 21 mg TD NOW STA Stop: 07/17/21 20:52 Last Admin: 07/17/21 20:59 Dose: 21 mg Documented by: [id number] Description This is a 21 electrode EEG with a single channel dedicated to limited EKG. The electrodes were placed in accordance with the International 10-20 system. REPORT: At the onset of the EEG the patinet is awake. The background is symmetric. The posterior dominant rhythm is not well seen in this recording. The background predominantly consist of low amplitude beta activity with intermixed theta activity. No stage II sleep transients are seen. Photic stimulation does not induce any abnormalities. Interpretation IMPRESSION: This is a normal wake and drowsy routine EEG. There is no evidence of epileptiform activity. Excessive beta activity is a normal variant and can be seen as a medication side effect (ie benzodiazepines).
--- NOTE | 2021-07-19 18:45 | Discharge Summary ---
Date of Service July 19, 2021 Admission HPI Per Admitting Provider History obtained from patient and records. Medical history significant for alcohol and tobacco abuse. Patient noted had a syncopal event at [facility] this afternoon. Upper and lower extremity spasms noted. Patient thinks he might have bit his lip. No incontinence symptoms. Bleeding posterior head wound from head trauma. Patient denies chest pain, S OB. No prior episodes. Last drink was this morning. Patient emembers waking up in the ambulance on route to the hospital. Scalp wound repaired at the ER. 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 Admission Exam Per Admitting Provider GENERAL: Tremulous, no respiratory distress SKIN: Normal color, warm HEENT: Repaired posterior scalp wound with dried blood [place] palpebral conjunctivae, no ptosis, dry buccal mucosa NECK : Supple, no tenderness CHEST : Decreased breath sounds, expiratory wheezes, no tenderness HEART : RRR, no obvious murmurs ABDOMEN: no distention, nontender EXTREMITIES : No LE swelling/tenderness, no other conspicuous deformities noted NEUROLOGIC : coherent, no facial asymmetry, tremulous, no other gross focality Principal Diagnosis Syncope Discharge Exam Constitutional WD/WN, vitals as above no acute distress Respiratory normal respiratory effort, lungs clear to auscultation Cardiovascular Rate/Rhythm: regular rate and regular rhythm Vessels: normal peripheral pulses Extremities: no edema Gastrointestinal (Abdomen) Percussion/Palpation: abdomen soft; abdomen nontender Skin no rashes, warm and dry Neurologic no focal motor deficits Psychiatric A+Ox3, euthymic affect Discharge Data Allergies Allergy/AdvReac Type Severity Reaction Status Date / Time No Known Allergies Allergy Verified 07/17/21 19:05 Ordered Studies Laboratory Results WBC 6.37 K/uL (4.8-10.8) 07/19/21 06:32 RBC 3.93 M/uL (4.7-6.1) L 07/19/21 06:32 Hgb 13.5 g/dL (14.0-18.0) L 07/19/21 06:32 Hct 38.6 % (42-52) L 07/19/21 06:32 MCV 98.2 fL (80-100) 07/19/21 06:32 MCH 34.4 pg (25-34) H 07/19/21 06:32 MCHC 35.0 g/dL (32-36) 07/19/21 06:32 RDW Std Deviation 42.7 fL (36.4-46.3) 07/19/21 06:32 RDW Coeff of Randall 11.8 % (11.5-14.5) 07/19/21 06:32 Plt Count 162 K/uL (130-400) 07/19/21 06:32 MPV 10.1 fL (7.4-10.4) 07/19/21 06:32 Immature Gran % (Auto) 0.1 % 07/18/21 06:38 Neut % (Auto) 71.7 % 07/18/21 06:38 Lymph % (Auto) 13.0 % 07/18/21 06:38 [place] % (Auto) 12.6 % 07/18/21 06:38 Eos % (Auto) 2.3 % 07/18/21 06:38 Baso % (Auto) 0.3 % 07/18/21 06:38 Neut # (Auto) 5.05 K/uL (1.4-6.5) 07/18/21 06:38 Lymph # (Auto) 0.92 K/uL (1.2-3.4) L 07/18/21 06:38 [place] # (Auto) 0.89 K/uL (0.11-0.59) H 07/18/21 06:38 Eos # (Auto) 0.16 K/uL (0-0.5) 07/18/21 06:38 Baso # (Auto) 0.02 K/uL (0-0.2) 07/18/21 06:38 Immature Gran # (Auto) 0.01 K/uL (0.00-0.02) 07/18/21 06:38 PT 10.0 Seconds (9.0-12.0) 07/17/21 18:13 INR 1.0 (0.9-1.1) 07/17/21 18:13 Sodium 131 mmol/L (136-145) L 07/18/21 23:53 Potassium 3.9 mmol/L (3.5-5.1) 07/18/21 23:53 Chloride 99 mmol/L (98-107) 07/18/21 23:53 Carbon Dioxide 26 mmol/L (21-32) 07/18/21 23:53 Anion Gap 6 (3-11) 07/18/21 23:53 BUN 9 mg/dl (6-23) 07/18/21 23:53 Creatinine 0.72 mg/dl (0.6-1.4) 07/18/21 23:53 Est Cr Clr Drug Dosing 129.3 ml/min 07/18/21 23:53 Est GFR ( Amer) 137.2 ml/min 07/18/21 23:53 Est GFR (Non-Af Amer) 118.3 ml/min 07/18/21 23:53 BUN/Creatinine Ratio 12.5 (10-20) 07/18/21 23:53 Glucose 94 mg/dl (70-99(Fasting)) 07/18/21 23:53 POC Glucose 119 mg/dl (70-99) H 07/17/21 18:11 Osmolality 258 mOsm/kg (280-300) L 07/17/21 21:31 Calcium 8.7 mg/dl (8.5-10.1) 07/18/21 23:53 Phosphorus 3.8 mg/dl (2.5-4.9) 07/17/21 18:13 Magnesium 2.2 mg/dl (1.7-2.4) 07/17/21 18:13 Total Bilirubin 1.4 mg/dl (0.2-1.0) H 07/18/21 06:38 AST 72 U/L (13-39) H 07/18/21 06:38 ALT 44 U/L (7-52) 07/18/21 06:38 Alkaline Phosphatase 84 U/L (34-104) 07/18/21 06:38 Ammonia 55.0 umol/L (18-72) 07/18/21 00:15 Total Creatine Kinase 743 U/L (30-223) H 07/17/21 18:13 Total Protein 6.2 gm/dl (6.0-8.3) D 07/18/21 06:38 Albumin 3.9 gm/dl (3.4-5.0) 07/18/21 06:38 Globulin 2.3 gm/dl (2.5-4.0) L 07/18/21 06:38 Albumin/Globulin Ratio 1.7 (0.9-2) 07/18/21 06:38 TSH 0.729 uIu/ml (0.300-4.500) 07/17/21 21:31 Ethyl Alcohol mg/dL < 10.0 mg/dl (<10.0) 07/17/21 19:35 SARS-CoV-2, RNA, NAAT NEGATIVE (NEGATIVE) 07/17/21 21:[address] 07/17/21 18:15 CT cervical spine wo con CT DOSE: 1368.57 mGy.cm CLINICAL HISTORY: 36 years-old Male with fall, seizure activity. Acute head and neck injury status post fall COMPARISON: Head CT of same day TECHNIQUE: Multiple axial CT images of the cervical spine were obtained without contrast. A dose lowering technique was utilized adhering to the principles of ALARA. FINDINGS: Multilevel mild intervertebral disc space narrowing with mild to moderate uncovertebral spurring and small posterior disc osteophyte complex formations. Minimal facet arthrosis. Mild C1-C2 degeneration. Mild multilevel neuroforaminal narrowing.. The cervical soft tissues appear unremarkable. Biapical pleural-parenchymal scarring. No pneumothorax. IMPRESSION: No acute cervical spine fracture or subluxation. ACT 112: Negative or not required by law. The above report was generated using voice recognition software. It may contain grammatical, syntax or spelling errors. Electronically signed by: Esa Cruz M.D. 07/17/2021 7:[address] 07/17/21 18:15 CT head/brain wo con CLINICAL HISTORY: 36 years-old Male with fall, occipital head strike, seizure activity. Acute head injury status post fall TECHNIQUE: Multiple axial CT images of the head were obtained without contrast. A dose lowering technique was utilized adhering to the principles of ALARA. COMPARISON: CT cervical spine of same day FINDINGS: No acute intracranial hemorrhage, midline shift, intracranial mass, hydrocephalus, territorial ischemia or abnormal extra-axial collection. The calvarium is intact. Left parietal scalp hematoma measures 9.0 x 1.2 cm The paranasal sinuses, mastoid air cells, and middle ear cavities are clear. IMPRESSION: 1. No acute intracranial abnormality or calvarial fracture. 2. Moderate sized left parietal scalp hematoma. ACT 112: Negative or not required by law. The above report was generated using voice recognition software. It may contain grammatical, syntax or spelling errors. Electronically signed by: Esa Cruz M.D. 07/17/2021 7:02 PM Chest X-Ray 07/17/21 21:13 XR chest 1V portable HISTORY: 36 years-old Male hyponatremia COMPARISON: None TECHNIQUE: Portable AP view of the chest FINDINGS: The cardiomediastinal and hilar silhouettes are within normal limits. No pneumothorax, pleural effusion, airspace consolidation or overt pulmonary edema. The bones of the chest appear grossly intact. IMPRESSION: No acute process. ACT 112: Negative or not required by law. The above report was generated using voice recognition software. It may contain grammatical, syntax or spelling errors. Electronically signed by: Esa Cruz M.D. 07/17/2021 10:07 PM Brain MRI 07/18/21 08:44 MRI OF THE BRAIN WITHOUT AND WITH IV CONTRAST SEIZURE PROTOCOL CLINICAL HISTORY: Seizure. Fall. COMPARISON STUDY: Head CT July 17, 2021. TECHNIQUE: Utilizing a 1.5 Rosie magnet and dedicated coil, multiplanar, multiecho imaging of the brain was performed pre and postcontrast administration. IV administration of 6.5 mL of Gadavist contrast was uneventful. Thin cut coronal T2 imaging was performed according to seizure protocol. FINDINGS: There are no foci of restricted diffusion to suggest acute infarct. No acute intracranial hemorrhage, midline shift or mass effect is present. Ventr icular system is normal. Basal cisterns are patent. There are no extra-axial collections. Flow-voids for the major intracranial vessels are present. There is no intracranial mass or pathologic enhancement. Calvarial signal is within normal limits. Note is made of a moderate-sized left parietal scalp contusion as shown on head CT. There is no evidence for sinusitis. There is no mastoid fluid. There is no MRI evidence for mesial temporal sclerosis. IMPRESSION: 1. No acute intracranial findings. 2. No intracranial mass or pathologic enhancement. 3. Moderate sized left parietal scalp contusion, as shown on head CT. ACT 112: Negative or not required by law. Electronically signed by: Octavio Montes M.D. 07/18/2021 9:57 AM Hospital Course (1) Syncope: He was brought by EMS to the ER after having a syncopal episode at [facility] Might be related to seizure activity from alcohol intake vs hyponatremia vs hypovolemia/dehydration CT head no acute intracranial abnormality or calvarial fracture. Moderate sized left parietal scalp hematoma. MRI head showed no acute intracranial findings.No intracranial mass or pathologic enhancement. Moderate sized left parietal scalp contusion, as shown on head CT EEG - This is a normal wake and drowsy routine EEG. There is no evidence of epileptiform activity. Excessive beta activity is a normal variant and can be seen as a medication side effect (ie benzodiazepines). No further seizure-like activity Patient insisting on being discharged by noon today to make appointments. Neurology consult pending, patient agreeable to be evaluated in the neurology office on 07/21. Patient advised no driving until follow-up with neurology. If he fails to follow-up, he will be reported to [place] [employer]. Alcohol abuse Alcohol level less than 10 Last drink was last night Denies any history of alcohol withdrawn or DT Continue alcohol withdrawal protocol with Ativan and gabapentin Continue thiamine and folic acid Pt is not interested to go to inpatient alcohol rehab Counseling on alcohol cessation Hyponatremia possible related to poor oral intake and alcohol abuse Na on admission 120 --> 131 on 07/18 Received IVF Transaminitis AST 75, ALT 55 and Alk phosp 743 on admission Mostly due to Alcohol abuse LFT improved with AST 73 and ALT 44 Continue monitor CMP Leukocytosis WBC on admission 11.8 Mostly reactive No sign of infection WBC normalized Tobacco abuse Continue nicotine patch Counseling on tobacco abuse Total Time Total Time Spent Total Time Spent (In Minutes): 35 Discharge Plan Discharge Items Patient Disposition: Home - Self-Care Reason For Visit: Passed Out Discharge Diagnosis: Syncope (passed out) Seizure Rule Out Hyponatremia (low sodium) Alcohol Abuse Activity: Per Instructions section Driving/Machine Use: NO DRIVING UNTIL AFTER FOLLOW UP WITH NEUROLOGY Non-emergency contact: Primary Care Provider and Neurologist Call non-emergency contact if: you have any medication questions, your symptoms worsen and you have a fever Follow-up/Referrals: Hannah Albrecht DO [Outside Practitioners] - (Date & Time 07/23/2021 11:20 AM Provider Hannah Albrecht DO [address] [facility] [address] , [place] [address] [facility] ) Serafin Russell DO [Physician] - 07/21/21 1:00 pm Diet: Regular Addtl Attending Provider Instructions: You were admitted to the hospital for evaluation after passing out. This was felt to be due to low sodium and dehydration likely due to chronic alcohol use. Seizure is also a possibility. EEG test is pending at the time of discharge. You will need to follow-up with neurology. DO NOT DRIVE UNTIL FOLLOW-UP WITH NEUROLOGY -if you fail to follow-up, your name will be submitted to [place] [employer] Abstain from alcohol Chronic alcohol use can cause vitamin deficiencies, start taking a multivitamin, thiamine and folic acid. An appointment has been made for you to establish care with a PCP. Please keep all appointments as scheduled. Pending Studies at Discharge: Yes Studies:: EEG Stand-Alone Forms: My [employer], Smoking Cessation Medications and DC Order Prescriptions: New folic acid 1 mg Tablet 1 mg PO QAM Qty: 1 RF: 0 multivitamin with folic acid [Daily-Alessandro (with folic acid)] 400 mcg Tablet 1 tab PO QAM Qty: 1 RF: 0 thiamine HCl (vitamin B1) 100 mg Tablet 100 mg PO QAM Qty: 1 RF: 0 Continued ibuprofen [Advil] 200 mg Tablet 200 mg PO DIRECTED PRN (Reason: Pain) RF: 0 Discharge Orders: Discharge Order (Routine); Ordered 07/19/21 Ordered By: Miladys Pettit/Other Patient Handouts: Treating Syncope: Prevention, EEG, ED Alcohol Withdrawal Seizure, ED Head Injury (Adult) Admission Data Admit Date/Time: 07/17/21 22:12 Attending Provider: Rajwinder Trinidad Admit Provider: Shun Mckeon Primary Care Provider: PCP,NO Other Providers: Shun Mckeon ; Kaylan Moyer ; Marcello Flanagan ; Kaylan Hunter ; Serafin Russell Other Interventions: Discharge Summary Assessment (RN) Last Done: 07/19/21 12:04
[2021-07-19] MEDS ORDERED: GABAPENTIN 600 MG TAB PO SCH (22:15)
[2021-07-21] MEDS ORDERED: GABAPENTIN 600 MG TAB PO SCH (10:15)
== END 2021-07-19 13:00 | disposition home or self-care (01) | DRG 101 ==
LOC: ED 18:01 → EDINP 22:12

== ENCOUNTER 2021-09-12 10:23 | Inpatient (IN) ==
[2021-09-12] MEDS ORDERED: MULTI-VITAMIN INFUSION 10 ML, THIAMINE HCL 100 MG, FOLIC ACID 1 MG in SODIUM CHLORIDE 0... IV ONE (10:58)
[2021-09-12 11:08] LABS: Basophils % (auto) 2.1 %; Eosinophils # (auto) 0.09 K/uL (0-0.5); Eosinophils % (auto) 1.9 %; Hematocrit (blood only) 43.7 % (42-52); Hemoglobin 14.8 g/dL (14.0-18.0); Immature Granulocytes # (auto) 0.01 K/uL (0.00-0.02); Immature Granulocytes % (auto) 0.2 %; Lymphocytes # (auto) 1.54 K/uL (1.2-3.4); Lymphocytes % (auto) 32.9 %; Mean Corpuscular Hemoglobin 35.3 pg (25-34); Mean Corpuscular Hgb Conc 33.9 g/dL (32-36); Mean Corpuscular Volume 104.3 fL (80-100); Monocytes # (auto) 0.47 K/uL (0.11-0.59); Neutrophils # (auto) 2.47 K/uL (1.4-6.5); Neutrophils % (auto) 52.9 %; Platelet Count 101 K/uL (130-400); RDW Coefficient of Variation 11.9 % (11.5-14.5); RDW Standard Deviation 45.5 fL (36.4-46.3); Red Blood Count 4.19 M/uL (4.7-6.1); White Blood Count 4.68 K/uL (4.8-10.8)
[2021-09-12 11:13] LABS: INR 1.2 (0.9-1.1); Prothrombin Time 12.3 Seconds (9.0-12.0)
--- NOTE | 2021-09-12 11:23 | Emergency Department Note ---
History of Present Illness General Chief complaint: Abdominal Pain Stated complaint: ABD PAIN, VOMITING, JAUNDICE Time Seen by Provider: 09/12/21 10:47 History of Present Illness Maximum Pain Intensity: 3 This 36-year-old male is seen today, for evaluation of nausea, vomiting, abdominal pain, and jaundice. Patient states he has had nausea and vomiting for the last 7 days. Today is the first day he did not vomit. States the guys at work noticed that his eyes were turning yellow on Monday. They have become more yellow each day. He finally became concerned this morning. He notes left lower abdominal pain as well as right upper abdominal pain. Denies any diarrhea. He has been moving his bowels normally. They have been normal in color and consistency. He states his urine is quite dark. He has been hydrating and states he is drinking a lot of water. Denies any excessive alcohol use recently. He states he drinks 2 beers a day. At a previous ED visit earlier this year, alcohol use was estimated at 6/day. He denies any fevers or chills. No diarrhea. He has extensive tattoos, but denies any homemade tattoos. He states he only goes to one parlor and has had no recent tattoos in the last 3 years. He denies any recreational or illicit drug use. He denies any excessive use of Tylenol. No prior history of similar episode. No other complaints. His mother accompanies him today. Home Medications Medication Instructions Recorded Confirmed Type diphenhydramine HCl 25 mg capsule 25 mg PO Q6H PRN 09/12/21 09/12/21 History (Benadryl) naproxen sodium 220 mg capsule 220 mg PO Q12H PRN 09/12/21 09/12/21 History (Aleve) Allergies Allergy/AdvReac Type Severity Reaction Status Date / Time No Known Allergies Allergy Verified 09/12/21 14:43 Past Med/Surg History Medical History Alcohol use Chronic hyponatremia Tobacco use Surgical History No pertinent past surgical history Family History (Updated 09/13/21 @ 22:09 by Nakul Allred PA-C) Other Multiple myeloma Social History Smoking Status: Current every day smoker Tobacco Type: Cigarettes Second Hand Exposure: Yes; Do You Dip or Chew Tobacco: No; Tobacco Cessation Education Requested by Patient: No Hx Alcohol Use: Yes Alcohol type: beer Hx Substance Use: No Preferred Language: Tongan Communication Ability: Effective Hearing Ability: Normal Curriculum Assistant Required: No Beliefs That Will Affect Care: None marital status: Single Current Living Situation: Family current occupational status: employed Other Information That Helps Us Care for You: No Feels Safe at Home: Yes Safety Concerns: Feels Safe At This Time Assistive Devices: None Review of Systems A total of 10 systems reviewed and were otherwise negative Physical Exam Vital Signs Vital Signs - 24 hr 09/12/21 10:35 09/12/21 11:17 Temperature 36.7 C Temperature Source Oral Pulse Rate 100 H 74 Pulse Rate [Apical] 72 Respiratory Rate 18 16 Blood Pressure 127/86 Blood Pressure [Left Arm] 132/87 Blood Pressure Mean 99 Blood Pressure Mean [Left Arm] 102 Pulse Oximetry 98 98 Oxygen Delivery Method Room Air Room Air Sepsis Recent Fever Within 48 Hours No Sepsis New/Unexplained Change in Mental Status No Sepsis Action Taken by Nursing No Action Required General: Well-developed, well-nourished, young white male, in no acute distress currently. Laying on the bed. Alert and oriented. Conversive. Skin and sclera have a jaundiced appearance. Skin: Warm and dry with good turgor. Extensive tattoos. No rashes or lesions. No ecchymosis or erythema. Skin does appear jaundiced. The patient is not diaphoretic. No abrasions. HEENT: Normocephalic atraumatic. Eyes PERRLA, EOMI. No conjunctiva or scleral injection. Jaundiced sclera. Ears TMs intact bilaterally with good light reflexes. No erythema or bulging. No hemotympanum. Canals are patent. Nares patent bilaterally without turbinate enlargement. No significant drainage. No epistaxis. Oropharynx without erythema or exudate. Uvula midline, oral mucosa moist. No lesions present. Normal speech. Heart: Heart RRR. No MGR. Peripheral pulses are 2+. Lungs: Lungs are clear to auscultation. No crackles rhonchi or wheezing. Good air movement. The patient is able to take a deep breath. Abdomen: Abdomen was inspected, auscultated, and palpated. Bowel sounds present x 4. Soft, generalized discomfort to palpation worst in the right upper quadrant. No hepato-splenomegaly. No masses noted. No rebound, negative Chao sign. No CVA tenderness. Musculoskeletal: Gross motor function of the upper and lower extremities is intact and unremarkable. Neurologic: Gross sensation is intact across the upper and lower extremities by soft touch. Course Administered Medications F[facility] ([facility] 1 Mg Tab) [facility]: 10/13/21 08:59 Last Admin: 09/13/21 12:28 Dose: 1 mg Documented by: [id number] Magnesium Oxide (Magnesium Oxide 400 Mg Tab) [facility] Stop: 09/16/21 08:59 Last Admin: 09/13/21 12:28 Dose: 400 mg Documented by: [id number] Miscellaneous (,) 1 ea N/A DAILY@0859 [facility] Stop: 10/13/21 08:58 Last Admin: 09/13/21 09:59 Dose: 1 ea Documented by: [id number] Nicotine (Nicotine 21 Mg/24 Hr Tdsy) 21 mg TD [facility] Stop: 10/13/21 08:59 Last Admin: 09/13/21 09:58 Dose: 21 mg Documented by: [id number] Pantoprazole Sodium (Pantoprazole 40 Mg Tab) 40 mg PO BID [facility] Stop: 10/13/21 20:59 Last Admin: 09/13/21 19:29 Dose: 40 mg Documented by: [id number] Thiamine HCl (Thiamine Hcl 100 Mg Tab) [facility] Stop: 10/13/21 08:59 Last Admin: 09/13/21 12:28 Dose: 100 mg Documented by: [id number] Discontinued Medications Multivitamins 10 ml/ Thiamine HCl 100 mg/ Folic Acid 1 mg/Sodium Chloride 1,011.2 mls @ 1,011.2 mls/hr IV .Q1H ONE Stop: 09/12/21 11:57 Last Infusion: 09/12/21 13:10 Dose: 0 mls/hr Documented by: [id number] Admin: 09/12/21 11:20 Dose: 1,011.2 mls/hr Documented by: [id number] Sodium Chloride (Nss) 500 mls @ 80 mls/hr IV .Q6H15M [facility] Stop: 10/12/21 14:59 Last Admin: 09/12/21 16:53 Dose: Not Given Documented by: [id number] Sodium Chloride (Nss 1000ml) 1,000 mls @ 80 mls/hr IV .[id number] [facility] Stop: 10/12/21 15:31 Last Infusion: 09/12/21 19:36 Dose: 0 mls/hr Documented by: [id number] Admin: 09/12/21 16:30 Dose: 80 mls/hr Documented by: [id number] Dextrose (D5w) 1,000 mls @ 50 mls/hr IV .Q20H [facility] Stop: 10/12/21 19:29 Last Infusion: 09/13/21 07:37 Dose: 0 mls/hr Documented by: [id number] Infusion: 09/13/21 07:26 Dose: 0 mls/hr Documented by: [id number] Admin: 09/12/21 19:41 Dose: 50 mls/hr Documented by: [id number] Magnesium Sulfate/Dextrose (Magnesium Sulfate / D5w) 1 gm in 100 mls @ 50 mls/hr IV Q2H [facility] Stop: 09/13/21 04:59 Last Infusion: 09/13/21 06:15 Dose: 0 mls/hr Documented by: [id number] Admin: 09/13/21 03:39 Dose: 50 mls/hr Documented by: [id number] Infusion: 09/13/21 03:39 Dose: 50 mls/hr Documented by: [id number] Admin: 09/13/21 01:40 Dose: 50 mls/hr Documented by: [id number] Magnesium Sulfate/Dextrose (Magnesium Sulfate / D5w) 1 gm in 100 mls @ 50 mls/hr IV ONE ONE Stop: 09/13/21 09:44 Last Infusion: 09/13/21 13:20 Dose: 0 mls/hr Documented by: [id number] Infusion: 09/13/21 12:32 Dose: 50 mls/hr Documented by: [id number] Infusion: 09/13/21 11:15 Dose: 0 mls/hr Documented by: [id number] Admin: 09/13/21 09:55 Dose: 50 mls/hr Documented by: [id number] Nicotine (Nicotine 14 Mg/24 Hr Patch) 14 mg TD QAM [facility] Stop: 10/12/21 13:14 Last Admin: 09/12/21 13:08 Dose: 14 mg Documented by: [id number] Pantoprazole Sodium (Pantoprazole 40 Mg Tab) 40 mg PO NOW STA Stop: 09/12/21 14:14 Last Admin: 09/12/21 14:20 Dose: 40 mg Documented by: [id number] Potassium Chloride (Potassium Chloride Crtab 20 Meq Tabcr) 40 meq PO ONE ONE Stop: 09/12/21 23:31 Last Admin: 09/12/21 23:43 Dose: 40 meq Documented by: [id number] Potassium Chloride (Potassium Chloride Crtab 20 Meq Tabcr) 40 meq PO NOW STA Stop: 09/12/21 21:26 Last Admin: 09/12/21 21:44 Dose: 40 meq Documented by: [id number] Medical Decision Making Differential Diagnosis Acute cholecystitis, obstructing tumor, stone in the common bile duct, hepatitis, Tylenol overdose, alcoholic cirrhosis, illicit drug use. Medical Records Attestation: I reviewed the patient's medical records. Home Medications Current Medication List: was personally reviewed by me Laboratory Data CBC, chemistry panel, PT/INR, alcohol level, and Covid test were obtained. Covid test is negative. UA shows 2+ bilirubin. Color is dark yellow. No evidence for infection. CBC shows a low white count at 4.68. Mildly low platelets at 101,000. Pap and Heimer bodies are noted. INR is elevated at 1.2. Patient is significantly low sodium at 120. Chloride is also low at 83. Potassium is normal. Total bilirubin is elevated at 11.7. AST and ALT are both elevated at 262 and 171 respectively. Alkaline phosphatase is elevated at 1458. Lipase is normal. Alcohol level was less than 10. Hepatitis panel was ordered. Results are pending. Result diagrams: 09/13/21 05:23 09/13/21 17:51 Lab Results 09/12/21 09/12/21 09/12/21 Range/Units 10:51 10:51 10:51 WBC 4.68 L (4.8-10.8) K/uL RBC 4.19 L (4.7-6.1) M/uL Hgb 14.8 (14.0-18.0) g/dL Hct 43.7 (42-52) % MCV 104.3 H (80-100) fL MCH 35.3 H (25-34) pg MCHC 33.9 (32-36) g/dL RDW Std Deviation 45.5 (36.4-46.3) fL RDW Coeff of Randall 11.9 (11.5-14.5) % Plt Count 101 L (130-400) K/uL MPV 11.0 H (7.4-10.4) fL Immature Gran % (Auto) 0.2 % Neut % (Auto) 52.9 % Lymph % (Auto) 32.9 % [place] % (Auto) 10.0 % Eos % (Auto) 1.9 % Baso % (Auto) 2.1 % Neut # (Auto) 2.47 (1.4-6.5) K/uL Lymph # (Auto) 1.54 (1.2-3.4) K/uL [place] # (Auto) 0.47 (0.11-0.59) K/uL Eos # (Auto) 0.09 (0-0.5) K/uL Baso # (Auto) 0.10 (0-0.2) K/uL Immature Gran # (Auto) 0.01 (0.00-0.02) K/uL Pappenheimer Bodies 3+ PT 12.3 H (9.0-12.0) Seconds INR 1.2 H (0.9-1.1) Sodium 120 L (136-145) mmol/L Potassium 3.5 (3.5-5.1) mmol/L Chloride 83 L (98-107) mmol/L Carbon Dioxide 23 (21-32) mmol/L Anion Gap 14 H (3-11) BUN 6 (6-23) mg/dl Creatinine 0.92 (0.6-1.4) mg/dl Est Cr Clr Drug Dosing 96.4 ml/min Est GFR ( Amer) 121.9 ml/min Est GFR (Non-Af Amer) 105.1 ml/min BUN/Creatinine Ratio 6.5 L (10-20) Glucose 98 (70-99(Fasting)) mg/dl Calcium 8.7 (8.5-10.1) mg/dl Total Bilirubin 11.7 H (0.2-1.0) mg/dl AST 262 H (13-39) U/L ALT 171 H (7-52) U/L Alkaline Phosphatase 1458 H (34-104) U/L Total Protein 5.9 L (6.0-8.3) gm/dl Albumin 3.5 (3.4-5.0) gm/dl Globulin 2.4 L (2.5-4.0) gm/dl Albumin/Globulin Ratio 1.5 (0.9-2) Lipase 34 (11-82) U/L Urine Color Urine Appearance (Clear) Urine pH (4.5-7.5) Ur Specific [place] (1.000-1.030) Urine Protein (Negative) Urine Glucose (UA) (Negative) Urine Ketones (Negative) Urine Blood (Negative) Urine Nitrite (Negative) Urine Bilirubin (Negative) Urine Urobilinogen (Negative) Ur Leukocyte Esterase (Negative) Urine Osmolality (500-800) mOsm/kg Ur Random Sodium mmol/L Ethyl Alcohol mg/dL (<10.0) mg/dl SARS-CoV-2, RNA, NAAT (NEGATIVE) 09/12/21 09/12/21 09/12/21 Range/Units 10:51 12:20 12:20 WBC (4.8-10.8) K/uL RBC (4.7-6.1) M/uL Hgb (14.0-18.0) g/dL Hct (42-52) % MCV (80-100) fL MCH (25-34) pg MCHC (32-36) g/dL RDW Std Deviation (36.4-46.3) fL RDW Coeff of Randall (11.5-14.5) % Plt Count (130-400) K/uL MPV (7.4-10.4) fL Immature Gran % (Auto) % Neut % (Auto) % Lymph % (Auto) % [place] % (Auto) % Eos % (Auto) % Baso % (Auto) % Neut # (Auto) (1.4-6.5) K/uL Lymph # (Auto) (1.2-3.4) K/uL [place] # (Auto) (0.11-0.59) K/uL Eos # (Auto) (0-0.5) K/uL Baso # (Auto) (0-0.2) K/uL Immature Gran # (Auto) (0.00-0.02) K/uL Pappenheimer Bodies PT (9.0-12.0) Seconds INR (0.9-1.1) Sodium (136-145) mmol/L Potassium (3.5-5.1) mmol/L Chloride (98-107) mmol/L Carbon Dioxide (21-32) mmol/L Anion Gap (3-11) BUN (6-23) mg/dl Creatinine (0.6-1.4) mg/dl Est Cr Clr Drug Dosing ml/min Est GFR ( Amer) ml/min Est GFR (Non-Af Amer) ml/min BUN/Creatinine Ratio (10-20) Glucose (70-99(Fasting)) mg/dl Calcium (8.5-10.1) mg/dl Total Bilirubin (0.2-1.0) mg/dl AST (13-39) U/L ALT (7-52) U/L Alkaline Phosphatase (34-104) U/L Total Protein (6.0-8.3) gm/dl Albumin (3.4-5.0) gm/dl Globulin (2.5-4.0) gm/dl Albumin/Globulin Ratio (0.9-2) Lipase (11-82) U/L Urine Color Dark Yellow Urine Appearance Clear (Clear) Urine pH 7.0 (4.5-7.5) Ur Specific [place] 1.003 (1.000-1.030) Urine Protein Negative (Negative) Urine Glucose (UA) Negative (Negative) Urine Ketones Negative (Negative) Urine Blood Negative (Negative) Urine Nitrite Negative (Negative) Urine Bilirubin 2+ H (Negative) Urine Urobilinogen Negative (Negative) Ur Leukocyte Esterase Negative (Negative) Urine Osmolality 91 L (500-800) mOsm/kg Ur Random Sodium mmol/L Ethyl Alcohol mg/dL < 10.0 (<10.0) mg/dl SARS-CoV-2, RNA, NAAT (NEGATIVE) 09/12/21 09/12/21 Range/Units 12:20 13:34 WBC (4.8-10.8) K/uL RBC (4.7-6.1) M/uL Hgb (14.0-18.0) g/dL Hct (42-52) % MCV (80-100) fL MCH (25-34) pg MCHC (32-36) g/dL RDW Std Deviation (36.4-46.3) fL RDW Coeff of Randall (11.5-14.5) % Plt Count (130-400) K/uL MPV (7.4-10.4) fL Immature Gran % (Auto) % Neut % (Auto) % Lymph % (Auto) % [place] % (Auto) % Eos % (Auto) % Baso % (Auto) % Neut # (Auto) (1.4-6.5) K/uL Lymph # (Auto) (1.2-3.4) K/uL [place] # (Auto) (0.11-0.59) K/uL Eos # (Auto) (0-0.5) K/uL Baso # (Auto) (0-0.2) K/uL Immature Gran # (Auto) (0.00-0.02) K/uL Pappenheimer Bodies PT (9.0-12.0) Seconds INR (0.9-1.1) Sodium (136-145) mmol/L Potassium (3.5-5.1) mmol/L Chloride (98-107) mmol/L Carbon Dioxide (21-32) mmol/L Anion Gap (3-11) BUN (6-23) mg/dl Creatinine (0.6-1.4) mg/dl Est Cr Clr Drug Dosing ml/min Est GFR ( Amer) ml/min Est GFR (Non-Af Amer) ml/min BUN/Creatinine Ratio (10-20) Glucose (70-99(Fasting)) mg/dl Calcium (8.5-10.1) mg/dl Total Bilirubin (0.2-1.0) mg/dl AST (13-39) U/L ALT (7-52) U/L Alkaline Phosphatase (34-104) U/L Total Protein (6.0-8.3) gm/dl Albumin (3.4-5.0) gm/dl Globulin (2.5-4.0) gm/dl Albumin/Globulin Ratio (0.9-2) Lipase (11-82) U/L Urine Color Urine Appearance (Clear) Urine pH (4.5-7.5) Ur Specific [place] (1.000-1.030) Urine Protein (Negative) Urine Glucose (UA) (Negative) Urine Ketones (Negative) Urine Blood (Negative) Urine Nitrite (Negative) Urine Bilirubin (Negative) Urine Urobilinogen (Negative) Ur Leukocyte Esterase (Negative) Urine Osmolality (500-800) mOsm/kg Ur Random Sodium 16 mmol/L Ethyl Alcohol mg/dL (<10.0) mg/dl SARS-CoV-2, RNA, NAAT NEGATIVE (NEGATIVE) Imaging Data Radiologist's Impression: Gallbladder ultrasound obtained today shows gallbladder thickening without visualize gallstones. Negative Chao sign. Findings are equivocal for acute cholecystitis. Nuclear med HIDA scan was recommended. Study was reviewed by me and read by radiology. Blood Pressure Blood Pressure Findings: Normal blood pressure MDM Narrative Patient was evaluated in room B2. Conservative care measures were discussed. IV was established. Labs were obtained. Given his jaundice and right upper quadrant discomfort, gallbladder ultrasound was obtained. It was equivocal for acute cholecystitis. No stones were visualized. I did speak with Dr. Stafford from general surgery. Given the patient's elevated transaminases, and lack of stones, he suggested that this was not likely an acute surgical case. He did recommend admission to the hospitalist team. I did speak with Dr. García from the [facility] team. She did come to the ED to admit the patient. Please see her di ctation for final management and outcome. Patient remained stable while in the ED. He was given IV hydration with a multivitamin bag, as well as Zofran 4 mg IV for his nausea. Patient was also given a nicotine patch to assist his smoking craving. He was placed on a hall monitor and remained stable while in the ED, with a normal sinus rhythm and a rate in the low 70s. Patient was tested for Covid and was negative. Hepatitis panel was obtained, but results were pending at time of admission. Patient was seen in conjunction with Dr. Phillips, who also evaluated the patient and concurred with today's diagnosis and treatment plan. Impression & Plan Acute hyponatremia, Nausea & vomiting, Transaminitis, Jaundice Admission to the hospitalist service. Surgical consultation. HIDA scan recommended. Discharge Plan Visit Data Chief Complaint: Abdominal Pain Stated Complaint: ABD PAIN, VOMITING, JAUNDICE ED Provider: Karen Phillips ED Midlevel Provider: Nakul Allred Discharge Problem: Acute hyponatremia, Nausea & vomiting, Transaminitis, Jaundice Patient Disposition: Admitted As Inpatient Discharge Instructions Interventions: ED Discharge Assessment Last Done: 09/12/21 15:08 Discharge Problem: Nausea & vomiting Qualifiers: Vomiting type: bilious vomiting Qualified Code(s): R11.14 - Bilious vomiting
[2021-09-12 11:53] LABS: Albumin Globulin Ratio 1.5 (0.9-2); Albumin Level 3.5 gm/dl (3.4-5.0); BUN Creatinine Ratio 6.5 (10-20); Bilirubin,Total 11.7 mg/dl (0.2-1.0); Calcium 8.7 mg/dl (8.5-10.1); Creatinine Clr Calc Pharmacy 96.4 ml/min; Est GFR (African American) 121.9 ml/min; Est GFR (Non-African American) 105.1 ml/min; Globulin 2.4 gm/dl (2.5-4.0); Total Protein 5.9 gm/dl (6.0-8.3)
[2021-09-12 12:04] LABS: Potassium 3.5 mmol/L (3.5-5.1)
[2021-09-12 12:07] LABS: Pappenheimer Bodies 3+
[2021-09-12] MEDS ORDERED: NICOTINE 14 MG/24 HR PATCH TD SCH (13:15)
--- NOTE | 2021-09-12 13:16 | Ultrasound Report ---
US gallbladder CLINICAL HISTORY: abdominal pain RUQ, jaundice TECHNIQUE: Multiple real-time sonographic images of the right upper quadrant were obtained. Comparison: None available at the time of this dictation. FINDINGS: The liver is diffusely echogenic in appearance with poor ultrasound penetration, with normal contour, which is consistent with fatty infiltration. No focal mass lesions are seen. No intrahepatic frank shelby dilatation is seen. No stones are seen. There is gallbladder wall edema measuring approximately 0.4 cm. A sonographic Chao's sign was not elicited by the shutdown coordinator. The common duct measures 0 .4 cm in diameter at the level of the hepatic artery. The visualized portions of the pancreas appear normal. The right kidney shows normal echogenicity, cortical thickness and renal contour. The right kidney sh ows no evidence of hydronephrosis or mass. No ascites or free fluid is seen in Bridges's pouch. IMPRESSION: Gallbladder wall thickening without visualized gallstones and negative Chao's sign. Correlation wit h pain medication history is recommended as Chao's sign may be false-negative in a patient on pain medication. Overall findings are equivocal for acute cholecystitis. If clinical question remains, [facility] HIDA scan can be performed. ACT 112: Negative or not required by law. Electronically signed by: Albert Sharp M.D. 09/12/2021 1:14 PM
[2021-09-12 13:31] LABS: Appearance Urine Clear (Clear); Blood Urine Negative (Negative); Color Urine Dark Yellow; Glucose Urine UA Negative (Negative); Ketones Urine Negative (Negative); Leukocyte Esterase Urine Negative (Negative); Nitrite Urine Negative (Negative); Protein Urine Negative (Negative); Specific Gravity Urine 1.003 (1.000-1.030); Urobilinogen Urine Negative (Negative)
[2021-09-12 13:48] LABS: Bilirubin Urine 2+ (Negative)
--- NOTE | 2021-09-12 13:54 | History & Physical Report ---
Date of Service September 12, 2021 Assessment & Plan Plan: Transaminitis -Markedly elevated LFTs, T bili -RUQ u/s equivocal for acute cholecystitis (GB wall thickened no stones noted), no CBD dilation. HIDA scan recommended -Will check viral Hepatitis, HIDA scan -GI , surgery consulted Hyponatremia Hypochloremia -likely due to hypovolemia. Patient also with hyponatremia 2 months prior which was believed to be from alcohol use (although today he only admits to 2 bee rs/day) -will check urine Na, Osmo, serume Osmo. -Will ask for Nephrology evaluation -NSS at 80 cc/hr. Will repeat BMP again later today Nausea/vomiting -start PPI -zofran PRN Abdominal discomfort -avoid tylenol, NSAIDs -tramadol 50mg Q 6PRN for severe pain Thrombocytopenia -likely in setting of current acute illness. If heavy alcohol drinking (which he denies) may be from alcohol. Macrocytosis -check B12, folate Current every day smoker -1ppd, continue nicotine patch--increase to 21mg daily DVT ppx SCDs for now History of Present Illness Chief Complaint: N/V/Abdominal Pain Primary Care Provider: NO PCP Mr Killian Maldonado is a 36 year old man with no known prior medical history, daily drinker ( admits to 2 beers/day), current smoker (1 pack per day), no street drugs, presents with 7 days of nausea/vomiting/abdominal pain and 4 days of jaundice. He denies history of similar symptoms. He has been in his usual state of health up until this. He did fall about 8 days ago while walking his dad's dog and he hit the back of his head on the stairs "hard". He takes aleve (daily for past 1 week) and benadryl as needed for pain from recent fall then he was taking it also for abdominal pain. He was last admitted here June 2021 for syncopal episode while in [facility]. At that time was found to have Na 120. It was thought he had an alcohol related seizure. He did have an EEG which was unremarkable. Allergies Allergy/AdvReac Type Severity Reaction Status Date / Time No Known Allergies Allergy Verified 09/12/21 14:43 Home Medications Medication Instructions Recorded Confirmed Type ibuprofen 200 mg tablet (Advil) 200 mg PO DIRECTED PRN 07/17/21 07/17/21 History folic acid 1 mg tablet 1 mg PO QAM #1 tab 07/19/21 Rx multivitamin with folic acid 400 1 tab PO QAM #1 tab 07/19/21 Rx mcg tablet (Daily-Alessandro (with folic acid)) thiamine HCl (vitamin B1) 100 mg 100 mg PO QAM #1 tab 07/19/21 Rx tablet Past Med/Surg History Medical History No pertinent past medical history Surgical History No pertinent past surgical history Family History (Updated 09/12/21 @ 11:22 by Nakul Allred PA-C) Other No pertinent family history Social History (Updated 09/12/21 @ 11:22 by Nakul Allred PA-C) Smoking Status: Current every day smoker Tobacco Type: Cigarettes Hx Alcohol Use: Yes Alcohol type: beer Hx Substance Use: No Hearing Ability: Normal marital status: Single current occupational status: employed Feels Safe at Home: Yes Assistive Devices: None Physical Exam Physical Exam: Appears stated age, no acute distress, pleasant Respiratory: Breathing comfortably on room air, no wheezing/rhonchi/rales Cardiovascular: Regular rate and rhythm, no murmurs/rubs/gallops Gastrointestinal (Abdomen): +epigastric and +RUQ tenderness, no rebound or guarding Musculoskeletal: no edema, no peripheral muscle wasting, no cyanosis Skin: +multiple tattoos, no ulcers noted on exposed skin, no redness Neurologic: awake, alert, spontaneously moving extremities, no tremors Psychiatric: Affect normal, speech linear, non pressured Results & Data Results & Data ([facility]) Vital Signs (Past 12 Hours) Vital Signs Temp Pulse Pulse Resp BP BP Pulse Ox 09/12/21 13:09 67 16 120/64 100 09/12/21 11:17 74 72 16 132/87 98 09/12/21 10:35 36.7 C 100 H 18 127/86 98 Laboratory Results Short CBC 09/12/21 Range/Units 10:51 WBC 4.68 L (4.8-10.8) K/uL Hgb 14.8 (14.0-18.0) g/dL Hct 43.7 (42-52) % Plt Count 101 L (130-400) K/uL BMP 09/12/21 10:51 Sodium 120 L Potassium 3.5 Chloride 83 L Carbon Dioxide 23 BUN 6 Creatinine 0.92 Glucose 98 Calcium 8.7 Liver Function 09/12/21 Range/Units 10:51 Total Bilirubin 11.7 H (0.2-1.0) mg/dl AST 262 H (13-39) U/L ALT 171 H (7-52) U/L Alkaline Phosphatase 1458 H (34-104) U/L Albumin 3.5 (3.4-5.0) gm/dl Urine 09/12/21 Range/Units 12:20 Urine Color Dark Yellow Urine Appearance Clear (Clear) Urine pH 7.0 (4.5-7.5) Ur Specific [place] 1.003 (1.000-1.030) Urine Protein Negative (Negative) Urine Glucose (UA) Negative (Negative) Medications Administered Current Inpatient Medications Miscellaneous (Remove Nicoderm Patch) 1 ea N/A DAILY@0859 [facility] Stop: 10/13/21 08:58 Nicotine (Nicotine 14 Mg/24 Hr Patch) 14 mg TD QAM [facility] Stop: 10/12/21 13:14 Last Admin: 09/12/21 13:08 Dose: 14 mg Documented by:
[2021-09-12] MEDS ORDERED: PANTOprazole 40 MG TAB PO STA (14:13)
[2021-09-12] MEDS ORDERED: SODIUM CHLORIDE 0.9% 500 ML IV SCH (15:00)
[2021-09-12] MEDS ORDERED: ONDANSETRON INJ 2 MG/ML 2 ML VIAL IV PRN (15:32)
[2021-09-12] MEDS ORDERED: SODIUM CHLORIDE 0.9% 1000ML 1,000 ML IV SCH (15:32)
[2021-09-12] MEDS ORDERED: ZOLPIDEM TARTRATE 5 MG TAB PO PRN (15:32)
[2021-09-12 17:55] LABS: Potassium 3.2 mmol/L (3.5-5.1)
[2021-09-12 17:56] LABS: BUN Creatinine Ratio 5.4 (10-20); Calcium 8.2 mg/dl (8.5-10.1); Creatinine Clr Calc Pharmacy 96.4 ml/min; Est GFR (African American) 121.9 ml/min; Est GFR (Non-African American) 105.1 ml/min
[2021-09-12] MEDS ORDERED: DEXTROSE 5% 1,000 ML IV SCH (19:30)
--- NOTE | 2021-09-12 19:31 | Surgery Consultation ---
Date of Consultation September 12, 2021 Assessment & Plan (1) Transaminitis: Patient has been admitted on the hospitalist service. At the present time there does not appear to be a surgical cause for patient's transaminitis as he does not have convincing evidence of cholecystitis. The primary service has ordered a HIDA scan to further evaluate the gallbladder we will certainly follow for the results of this. Certainly other etiologies of patient's transaminitis should be pursued: Primary service has requested a gastroenterology consultation Hepatitis profile has been ordered Would recommend considering other viral etiologies of patient's transaminitis including checking for Val-Schuster virus or cytomegalovirus or even parvovirus As the patient did not have an exorbitant amount of pain this would raise the concern of some underlying mass in the hepatobiliary or pancreatic system, therefore consideration may be given to pursuing an MRCP but will defer this to the primary service We will follow along for the results of the pending studies with further recommendations to follow Supervising Physician Co-Signing Physician Notes I personally saw and evaluated the patient with Serafin Montana PA-C and agree with the assessment and plan. 36-year-old male with elevated LFTs and no signs of acute cholecystitis Ultrasound images and results reviewed by me Without the presence of cholelithiasis his biliary obstructive pattern is unlikely to be gallbladder related Would work-up other reasons of intrinsic liver disease as a cause of his transaminitis and elevated bilirubin Primary team has ordered a HIDA and MRCP, will follow up results of these No plans for cholecystectomy History of Present Illness Reason for Consultation: Elevated LFTs Attending Physician: Santhosh García MD History of Present Illness This is a 36-year-old male who presented to [facility] secondary to approximately 1 week of fatigue, generalized abdominal pain, and nausea. The patient denies any fevers, shakes, chills. He denies any prior abdominal surgeries. He denies any emesis. Patient denies any known recent illnesses with any viruses. Patient does have multiple tattoos but he says that these were performed at a reputable tattoo parlor. She denies intravenous drug use. The patient denies using Tylenol. Patient denies any weight loss. He does note over the same timeframe that with his symptomatology there are no palliative or provocative factors and specifically states that his generalized abdominal pain is unrelated to meals. He notes that his urine has been darker color and has turned slightly orange over the past 24 hours. He denies any change in bowel habits and denies any discoloration of his BMs. He denies any weight loss. He does note that his mother suffers from multiple myeloma but denies any other family history of cancers. He does consume 2-3 alcoholic beverages per day. 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 Since arrival to the hospital the patient has had labs and imaging which I dependent reviewed. A gallbladder ultrasound showed gallbladder wall thickening without any visualize gallstones. The study was not convincing for cholecystitis. Labs include a CBC her white blood cell count was 4.6. Hemoglobin and hematocrit were normal. His platelet count was slightly low at 101,000. Coagulation studies showed an INR of 1.2. Sodium and potassium are 120 and 3.2. His BUN and creatinine were 5 and 0.9. His LFTs were markedly elevated with a total bilirubin of 11.7. AST and ALT were 262 and 171 respectively. His alkaline phosphatase was 1458. Urinalysis was not indicative of infection. Alcohol level was not elevated. A Covid test was performed and noted to be negative. Hepatitis profile has been ordered and is pending. At the time of interview he was resting comfortably bed he was in no distress Allergies Allergy/AdvReac Type Severity Reaction Status Date / Time No Known Allergies Allergy Verified 09/12/21 14:43 Home Medications Medication Instructions Recorded Confirmed Type diphenhydramine HCl 25 mg capsule 25 mg PO Q6H PRN 09/12/21 09/12/21 History (Benadryl) naproxen sodium 220 mg capsule 220 mg PO Q12H PRN 09/12/21 09/12/21 History (Aleve) Patient History Medical History Alcohol use No pertinent past medical history Surgical History No pertinent past surgical history Family History Other No pertinent family history Social History Smoking Status: Current every day smoker Tobacco Type: Cigarettes Second Hand Exposure: Yes; Do You Dip or Chew Tobacco: No; Tobacco Cessation Education Requested by Patient: No Hx Alcohol Use: Yes Alcohol type: beer Hx Substance Use: No Preferred Language: Spanish Communication Ability: Effective Hearing Ability: Normal Outside Production Inspector Required: No Beliefs That Will Affect Care: None marital status: Single Current Living Situation: Family current occupational status: employed Other Information That Helps Us Care for You: No Feels Safe at Home: Yes Safety Concerns: Feels Safe At This Time Assistive Devices: None Review of Systems Constitutional: + fatigue; no fever and no chills Eyes: no diplopia Ear, Nose, Mouth, Throat: no ear pain Respiratory: no cough and no dyspnea Cardiovascular: no chest pain Gastrointestinal: + abdominal pain and + nausea; no vomiting, no diarrhea/loose stools and no blood in stools Genitourinary: + as per Subjective / HPI Musculoskeletal: no back pain Integumentary: no rash Neurologic: no localized weakness Physical Exam Constitutional: well developed and well nourished; no acute distress Eyes: Scleral jaundice noted ENMT: Ears: no hearing impairment Sublingual jaundice noted Neck: trachea midline Respiratory: normal respiratory effort, lungs clear to auscultation Cardiovascular: Rate/Rhythm: regular rate and regular rhythm Gastrointestinal (Abdomen): Abdomen is soft and nondistended. There is no rebound tenderness or guarding. There is no pinpoint tenderness but generalized tenderness was noted with very forceful palpation in the right upper quadrant. Musculoskeletal: No calf tenderness Skin: Multiple tattoos noted Neurologic: moves all extremities Psychiatric: A+Ox3, euthymic affect Results & Data ([facility]) Vital Signs (Past 12 Hours) Vital Signs Temp Pulse Pulse Resp BP BP Pulse Ox 09/12/21 16:22 36.4 C L 80 20 136/89 100 09/12/21 16:21 36.4 C L 80 20 136/89 100 09/12/21 15:30 108 H 09/12/21 13:09 67 16 120/64 100 09/12/21 11:17 74 72 16 132/87 98 09/12/21 10:35 36.7 C 100 H 18 127/86 98 PG Care Time/CCT Total # of Minutes Spent Total Time Spent with Patient: Total time spent is greater than 50% in coordination of care (as documented) at patient's floor/unit and/or counseling patient: Coding Level of Care Code 17371 Inpt Consult Level 5 Diagnoses Transaminitis R74.01
[2021-09-12 20:52] LABS: Potassium 2.9 mmol/L (3.5-5.1)
[2021-09-12 20:53] LABS: BUN Creatinine Ratio 4.6 (10-20); Calcium 7.9 mg/dl (8.5-10.1); Creatinine Clr Calc Pharmacy 101.9 ml/min; Est GFR (African American) 126.9 ml/min; Est GFR (Non-African American) 109.5 ml/min
[2021-09-12] MEDS ORDERED: POTASSIUM CHLORIDE CRTAB 20 MEQ TABCR PO STA (21:25)
[2021-09-12] MEDS ORDERED: POTASSIUM CHLORIDE CRTAB 20 MEQ TABCR PO ONE (23:30)
[2021-09-13 01:15] LABS: BUN Creatinine Ratio 3.7 (10-20); Calcium 8.1 mg/dl (8.5-10.1); Creatinine Clr Calc Pharmacy 108.2 ml/min; Est GFR (Non-African American) 112.2 ml/min
[2021-09-13 01:16] LABS: Potassium 3.5 mmol/L (3.5-5.1)
[2021-09-13] MEDS: MAGNESIUM SULFATE / D5W 1 GM/100 ML BAG IV SCH ×2 (01:40→03:39)
[2021-09-13 06:23] LABS: Hematocrit (blood only) 38.8 % (42-52); Hemoglobin 12.9 g/dL (14.0-18.0); Mean Corpuscular Hgb Conc 33.2 g/dL (32-36); Mean Corpuscular Volume 105.1 fL (80-100); RDW Coefficient of Variation 12.1 % (11.5-14.5); RDW Standard Deviation 46.9 fL (36.4-46.3); Red Blood Count 3.69 M/uL (4.7-6.1); White Blood Count 4.62 K/uL (4.8-10.8)
[2021-09-13 06:42] LABS: Mean Platelet Volume 10.1 fL (7.4-10.4); Platelet Count 75 K/uL (130-400)
[2021-09-13 06:43] LABS: Platelet Estimate Decreased (Normal)
[2021-09-13 07:21] LABS: Aspartate Aminotransferase 254 U/L (13-39); Bilirubin Direct 6.9 mg/dl (0-0.2); Potassium 3.7 mmol/L (3.5-5.1)
[2021-09-13 07:22] LABS: Alanine Aminotransferase 150 U/L (7-52); Albumin Level 2.9 gm/dl (3.4-5.0); Alkaline Phosphatase 1251 U/L (34-104); Anion Gap 8 (3-11); BUN Creatinine Ratio 3.8 (10-20); Blood Urea Nitrogen 3 mg/dl (6-23); Calcium 8.3 mg/dl (8.5-10.1); Carbon Dioxide 23 mmol/L (21-32); Chloride 95 mmol/L (98-107); Creatinine Clr Calc Pharmacy 110.9 ml/min; Est GFR (African American) 131.3 ml/min; Est GFR (Non-African American) 113.3 ml/min; Glucose 92 mg/dl (70-99(Fasting)); INR 1.1 (0.9-1.1); Prothrombin Time 11.4 Seconds (9.0-12.0); Sodium 126 mmol/L (136-145)
[2021-09-13 07:23] LABS: Total Protein 4.9 gm/dl (6.0-8.3)
[2021-09-13] MEDS ORDERED: MAGNESIUM SULFATE / D5W 1 GM/100 ML BAG IV ONE (07:45)
--- NOTE | 2021-09-13 09:12 | Gastrointestinal Consultation ---
Date of Consultation September 13, 2021 Assessment & Plan (1) Transaminitis: Etiology unclear at present--would consider cholestasis vs malignancy given alk phos vs alcoholic hepatitis (though discriminant function does not warrant steroids even if this were the diagnosis) -Await results of HIDA and MRCP -Continue to trend LFTs -Alcohol abstinence -Await results of Hepatitis A, B, C testing; would hold off on autoimmune work- up until further imaging is obtained. Further recommendations pending results of testing (2) Nausea & vomiting: -Protonix 40 mg IV BID -Anti-emetics prn Supervising Physician Co-Signing Physician Notes I personally evaluated the patient and agree with the findings as documented by Aileen Yang, GIOVANNI Exam: Constitutional: WD/WN, vitals as above General: EOM intact bilaterally Neck: normal visual inspection Respiratory: normal respiratory effort, lungs clear to auscultation Cardiovascular: RRR, no murmur, no edema Gastrointestinal: abdomennormal to inspection, nondistended, soft, nontender, no hepatosplenomegaly, no asterixis Musculoskeletal: no cyanosis, head normal to inspection Skin: no rashes, warm and dry Neurologic: moves all extremities Psychiatric: A and O x3, euthymic affect History of Present Illness Reason for Consultation: Elevated LFTs Attending Physician: Santhosh García MD History of Present Illness Mr. Killian Maldonado is a 36 year old man without any previously known medical history who presents with abdominal pain, nausea, vomiting, & jandice over the past week. He admits to drinking 2 beers per day and smokes 1 ppd. He denies IVDA. He denies Tylenol use; does endorse Aleve use & Benadryl, but no other OTC remedies. No family history of liver disease. He was recently admitted with hyponatremia and was felt to have an alcohol-related seizure. There are no particular triggers for nausea & vomiting. Abdominal pain is generalized. Labs from admission indicated a total bilirubin of 12, direct bilirubin of 6.9, AST 254, ALT 150, Alk phos 1251, INR is 1.1 at present. He had an abdominal US that indicated equivocal findings for cholecystitis. A HIDA scan is pending. He has been evaluated by gen surg and it was felt that he did not have acute cholecystitis. An MRCP is ordered per the primary team. Infectious hepatitis testing pending. Allergies Allergy/AdvReac Type Severity Reaction Status Date / Time No Known Allergies Allergy Verified 09/12/21 14:43 Home Medications Medication Instructions Recorded Confirmed Type diphenhydramine HCl 25 mg capsule 25 mg PO Q6H PRN 09/12/21 09/12/21 History (Benadryl) naproxen sodium 220 mg capsule 220 mg PO Q12H PRN 09/12/21 09/12/21 History (Aleve) Patient History Medical History Alcohol use Chronic hyponatremia Tobacco use Surgical History No pertinent past surgical history Family History Other No pertinent family history Social History Smoking Status: Current every day smoker Tobacco Type: Cigarettes Second Hand Exposure: Yes; Do You Dip or Chew Tobacco: No; Tobacco Cessation Education Requested by Patient: No Hx Alcohol Use: Yes Alcohol type: beer Hx Substance Use: No Preferred Language: Swedish Communication Ability: Effective Hearing Ability: Normal Financial Examiner Required: No Beliefs That Will Affect Care: None marital status: Single Current Living Situation: Family current occupational status: employed Other Information That Helps Us Care for You: No Feels Safe at Home: Yes Safety Concerns: Feels Safe At This Time Assistive Devices: None Review of Systems Constitutional: no fever and no chills Respiratory: no cough and no dyspnea Cardiovascular: no chest pain Gastrointestinal: + abdominal pain, + nausea and + vomiting Musculoskeletal: no problem reported Psychiatric: no problem reported Hematologic / Lymphatic: no unexplained weight loss Physical Exam Constitutional: well developed Respiratory: normal respiratory effort Cardiovascular: Rate/Rhythm: regular rate Gastrointestinal (Abdomen): Inspection/Auscultation: abdomen normal to inspection Percussion/Palpation: abdomen soft; abdomen nontender Musculoskeletal: Head/Neck/Chest: normocephalic Skin: + jaundice Psychiatric: Orientation: alert and oriented x 3 Results & Data ([facility]) Vital Signs (Past 12 Hours) Vital Signs Temp Pulse Pulse Resp BP Pulse Ox 09/13/21 07:51 68 09/13/21 03:29 36.5 C 102 H 20 108/72 99 09/12/21 23:43 141/90 H 09/12/21 22:57 36.5 C 101 H 22 150/119 H 98 09/12/21 22:51 77 PG Care Time/CCT Total # of Minutes Spent Total Time Spent with Patient: Total time spent is greater than 50% in coordination of care (as documented) at patient's floor/unit and/or counseling patient: Coding Level of Care Code 69282 Inpt Consult Level 4 Diagnoses Transaminitis R74.01 Nausea & vomiting R11.2
[2021-09-13] MEDS: NICOTINE 21 MG/24 HR TDSY TD SCH (09:58)
[2021-09-13] MEDS: , SCH (09:59)
[2021-09-13 11:58] LABS: BUN Creatinine Ratio 2.5 (10-20); Calcium 8.4 mg/dl (8.5-10.1); Creatinine Clr Calc Pharmacy 110.9 ml/min; Est GFR (African American) 131.3 ml/min; Est GFR (Non-African American) 113.3 ml/min
[2021-09-13 12:00] LABS: Potassium 3.6 mmol/L (3.5-5.1)
[2021-09-13 12:27] LABS: Lyme Ab IgM w/WB Rflx Negative (Negative)
[2021-09-13] MEDS: FOLIC ACID 1 MG TAB PO SCH (12:28)
[2021-09-13] MEDS: THIAMINE HCL 100 MG TAB PO SCH (12:28)
[2021-09-13] MEDS: MAGNESIUM OXIDE 400 MG TAB PO SCH (12:28)
[2021-09-13 12:31] LABS: Lyme Ab IgG w/WB Rflx Negative (Negative)
--- NOTE | 2021-09-13 14:19 | Nuclear Medicine Report ---
NM hepatobiliary CLINICAL HISTORY: 36 years-old Male with abnormal LFTs. Acutely elevated LFTs with abdominal pain, v omiting and jaundice TECHNIQUE: Sequential anterior abdominal images were obtained through 4 hours following the intraven ous administration of 5.5 mCi of technetium-99m Choletec. COMPARISON: MRCP of same day, gallbladder ultrasound 09/12/2021 FINDINGS: There is prompt, uniform accumulation of the tracer by the liver. There is minimal filling of the in trahepatic ducts, common bile duct with minimal delayed excretion of the tracer into the duodenum. T he gallbladder does not fill. At the 4 hour time interval, a large amount of tracer is still present within the enlarged liver and is also present within the urinary bladder and kidneys. IMPRESSION: 1. Abnormal hepatobiliary study. Scintigraphic findings are compatible with hepatobiliary dysfunction . Correlate clinically to exclude hepatitis. 2. The gallbladder does not fill with tracer. Acute cholecystitis cannot be excluded on this study, h owever is considered less likely. ACT 112: Negative or not required by law. The above report was generated using voice recognition software. It may contain grammatical, syntax o r spelling errors. Electronically signed by: Esa Cruz M.D. 09/13/2021 2:17 PM
--- NOTE | 2021-09-13 16:16 | Nephrology Consultation ---
Date of Consultation September 13, 2021 Assessment & Plan (1) Electrolyte and fluid disorder: Admission studies consistent with polydipsia. Presenting sodium 120 on September 12. Sodium 24 hours later 126 which is appropriate rate of correction. goal sodium for tomorrow midday is no more than 134. Not particularly fluid overloaded on exam. possible that his fall 8 days prior to presentation related to hyponatremia -While on liquid diet, no fluid limit When taking p.o., needs fluid limit 1.5 L daily and protein shakes do not count toward this fluid limit -Ordered repeat basic metabolic panel now x1 with mag and phos > if they're ok -pls check daily mag, bmp, phos - orders in for next 2 days -No ivfluids needed currently > monitor for need -no nsaids History of Present Illness Reason for Consultation: Hyponatremia Requesting Physician: Dr García Attending Physician: Santhosh García MD History of Present Illness 36-year-old male whom I am asked to evaluate for hyponatremia was admitted last evening for hyponatremia and transaminitis after presenting with 1 week of epigastric abdominal pain and nausea and vomiting and several days of .jaundice Past medical history includes alcohol and tobacco abuse, chronic hyponatremia, frequent falls. He was admitted here in June for sodium of 120 after a syncopal event attributed presumptively to an alcohol-related seizure. He endorses a fall approximately 8 days back. Had been using once daily Aleve since then. The patient smokes 1 pack/day and drinks 2 beers daily. 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 He tells me that his schedule is too hectic to have regular meals many times. His epigastric pain is currently controlled. He is on clears and is very hungry. Surgery evaluated the patient and does not feel there is an active surgical concern such as acute cholecystitis. GI is following as well with multiple studies hepatitis pending. His sodium initially corrected to 128 in 7 hours after resuscitation with unknown amount of normal saline; then started on D5 water and came down to 126 by this morning. Magnesium and potassium were also supplemented. Allergies Allergy/AdvReac Type Severity Reaction Status Date / Time No Known Allergies Allergy Verified 09/12/21 14:43 Home Medications Medication Instructions Recorded Confirmed Type diphenhydramine HCl 25 mg capsule 25 mg PO Q6H PRN 09/12/21 09/12/21 History (Benadryl) naproxen sodium 220 mg capsule 220 mg PO Q12H PRN 09/12/21 09/12/21 History (Aleve) Patient History Medical History Alcohol use Chronic hyponatremia Tobacco use Surgical History No pertinent past surgical history Family History Other No pertinent family history Social History Smoking Status: Current every day smoker Tobacco Type: Cigarettes Second Hand Exposure: Yes; Do You Dip or Chew Tobacco: No; Tobacco Cessation Education Requested by Patient: No Hx Alcohol Use: Yes Alcohol type: beer Hx Substance Use: No Preferred Language: Bengali Communication Ability: Effective Hearing Ability: Normal Facilities Management Executive Required: No Beliefs That Will Affect Care: None marital status: Single Current Living Situation: Family current occupational status: employed Other Information That Helps Us Care for You: No Feels Safe at Home: Yes Safety Concerns: Feels Safe At This Time Assistive Devices: None Review of Systems Review of Systems: All systems reviewed & are unremarkable except as noted in HPI & below Physical Exam Constitutional: well developed, + thin and cooperative; no acute distress Eyes: + scleral abnormality (icteric sclerae), + anicteric sclerae and EOM intact bilaterally ENMT: Ears: no external ear abnormality Nose: no external nose abnormality Mouth: + dry oral mucous membranes Neck: no nuchal rigidity Respiratory: normal respiratory effort Auscultation: + diminished lung sounds Cardiovascular: Rate/Rhythm: regular rhythm and + tachycardic Extremities: no edema Gastrointestinal (Abdomen): Inspection/Auscultation: normal bowel sounds Percussion/Palpation: abdomen soft; abdomen nontender Musculoskeletal: Extremities: strength 5/5 throughout Skin: no rashes, warm and dry BL hands reddish/purplish but no kimberly cyanosis or raynauds Neurologic: alonzo, fluent speech, no tremor ambulatory w/o asst Psychiatric: Orientation: oriented x 3 Speech: normal rate/rhythm/volume of speech Results & Data ([facility]) Vital Signs (Past 12 Hours) Vital Signs Pulse 09/13/21 14:45 97 H 09/13/21 07:51 68 Laboratory Results 09/13/21 05:23 09/13/21 10:42 Urine osm 91 and urine sodium 16 two hours after presentation Diagnostic Findings HIDA, MRCP pending
--- NOTE | 2021-09-13 16:37 | Magnetic Resonance Report ---
MR MRCP CLINICAL HISTORY: abnormal LFTs TECHNIQUE: Multiplanar multisequence MR images of the abdomen were obtained, as per MRCP protocol. . COMPARISON: None available at the time of this dictation. FINDINGS: Lower chest: No acute abnormality Liver: Unremarkable. No focal lesions are seen. Gallbladder and biliary tree: Diffuse, somewhat irregular gallbladder wall thickening is seen. No int ra- or extrahepatic biliary ductal dilation. Pancreas: Unremarkable, no focal lesions. Spleen: Unremarkable. Adrenals: Unremarkable. Kidneys and ureters: Unremarkable. Bowel: Unremarkable. Lymph nodes Retroperitoneal: Unremarkable. Mesenteric: Unremarkable. Peritoneum: Normal Vessels: Unremarkable. Abdominal wall: Unremarkable. Bones: Unremarkable. IMPRESSION: Diffuse gallbladder wall thickening is seen. Please see nuclear medicine hepatobiliary study for find ings suggesting acute hepatitis with reactive gallbladder wall thickening. ACT 112: Negative or not required by law. Electronically signed by: Albert Sharp M.D. 09/13/2021 4:35 PM
[2021-09-13 17:19] LABS: BUN Creatinine Ratio 2.5 (10-20); Calcium 8.2 mg/dl (8.5-10.1); Creatinine Clr Calc Pharmacy 109.5 ml/min; Est GFR (African American) 130.7 ml/min; Est GFR (Non-African American) 112.7 ml/min; Magnesium 2.4 mg/dl (1.7-2.4); Phosphorus 1.8 mg/dl (2.5-4.9)
[2021-09-13] MEDS: PANTOprazole 40 MG TAB PO SCH (19:29)
[2021-09-14 04:38] LABS: HBSAG NON-REACTIVE (NON-REACTIVE); Hepatitis A Antibody IgM NON-REACTIVE (NON-REACTIVE); Hepatitis B Core Antibody IgM NON-REACTIVE (NON-REACTIVE)
[2021-09-14 05:59] LABS: Hematocrit (blood only) 40.1 % (42-52); Hemoglobin 12.8 g/dL (14.0-18.0); Mean Corpuscular Hemoglobin 33.9 pg (25-34); Mean Corpuscular Hgb Conc 31.9 g/dL (32-36); Mean Corpuscular Volume 106.1 fL (80-100); RDW Coefficient of Variation 12.2 % (11.5-14.5); RDW Standard Deviation 47.1 fL (36.4-46.3); Red Blood Count 3.78 M/uL (4.7-6.1); White Blood Count 4.64 K/uL (4.8-10.8)
[2021-09-14 06:05] LABS: Prothrombin Time 10.8 Seconds (9.0-12.0)
[2021-09-14 06:09] LABS: Mean Platelet Volume 11.5 fL (7.4-10.4); Platelet Count 79 K/uL (130-400)
[2021-09-14 06:26] LABS: BUN Creatinine Ratio 3.7 (10-20); Bilirubin,Total 12.9 mg/dl (0.2-1.0); Calcium 8.3 mg/dl (8.5-10.1); Creatinine Clr Calc Pharmacy 101.8 ml/min; Est GFR (African American) 130.7 ml/min; Est GFR (Non-African American) 112.7 ml/min; Phosphorus 2.6 mg/dl (2.5-4.9)
[2021-09-14 07:42] LABS: Bilirubin Direct 7.2 mg/dl (0-0.2); Potassium 3.4 mmol/L (3.5-5.1)
[2021-09-14] MEDS: NICOTINE 21 MG/24 HR TDSY TD SCH (07:59)
[2021-09-14] MEDS: , SCH (07:59)
[2021-09-14] MEDS: PANTOprazole 40 MG TAB PO SCH ×2 (07:59→21:11)
[2021-09-14] MEDS: THIAMINE HCL 100 MG TAB PO SCH (07:59)
[2021-09-14] MEDS: MAGNESIUM OXIDE 400 MG TAB PO SCH (07:59)
[2021-09-14] MEDS: FOLIC ACID 1 MG TAB PO SCH (07:59)
[2021-09-14] MEDS ORDERED: POTASSIUM CHLORIDE CRTAB 20 MEQ TABCR PO STA (08:14)
--- NOTE | 2021-09-14 09:16 | Surgery Progress Note ---
Date of Service September 14, 2021 Assessment & Plan (1) Jaundice: Plan: HIDA and MRCP results reviewed No plans for cholecystectomy, he has some intrinsic liver disease causing his elevated LFTs Surgery will sign off at this time, please call with any questions or concerns (2) Transaminitis: Admission and Anticipated Discharge Date Admission Date: September 12, 2021 Subjective Patient seen and examined. Denies abdominal pain. No other complaints. Review of Systems Constitutional: no fever and no chills Physical Exam Constitutional: WD/WN, vitals as above Eyes: sclerae not anicteric Gastrointestinal (Abdomen): normal bowel sounds, soft, nontender, no hepatosplenomegaly Results & Data ([facility]) Vital Signs (Past 12 Hours) Vital Signs Temp Pulse Pulse Resp BP Pulse Ox 09/14/21 07:33 36.7 C 105 H 19 130/89 99 09/14/21 07:18 73 09/14/21 03:15 37.0 C 105 H 18 113/76 98 09/13/21 23:21 36.6 C 88 18 146/87 H 96 Laboratory Results [place], [place] [phone] Nuclear Medicine Report Patient:CHARLINE PALMER Admit Date:09/12/21 MR#:[id number] Address1:[address] [place] [address] Acct ID:[id number] Address2: Date:[address] [facility] Zip:[place] [address] Age:36 Location: Sex: Room/Bed:[facility] Att Phy:Santhosh García MD Diagnosis:ABNORMAL LFTS Lisa Phy:PCP,NO Service Date:09/13/21 Fam Phy: Interpreting Phy:Esa CruzAdmit Phy:Santhosh García MD Ordering Phy:Santhosh García MD cc: ~ ADDENDUM There was a typographical error in the following impression which should read 1. Abnormal hepatobiliary study. Scintigraphic findings are compatible with HEPATOCELLULAR dysfunction. Correlate clinically to exclude hepatitis. Electronically signed by: Esa Cruz M.D. 09/13/2021 3:51 PM ADDENDUM END NM hepatobiliary CLINICAL HISTORY: 36 years-old Male with abnormal LFTs. Acutely elevated LFTs with abdominal pain, vomiting and jaundice TECHNIQUE: Sequential anterior abdominal images were obtained through 4 hours following the intravenous administration of 5.5 mCi of technetium-99m Choletec. COMPARISON: MRCP of same day, gallbladder ultrasound 09/12/2021 FINDINGS: There is prompt, uniform accumulation of the tracer by the liver. There is minimal filling of the intrahepatic ducts, common bile duct with minimal delayed excretion of the tracer into the duodenum. The gallbladder does not fill. At the 4 hour time interval, a large amount of tracer is still present within the enlarged liver and is also present within the urinary bladder and kidneys. IMPRESSION: 1. Abnormal hepatobiliary study. Scintigraphic findings are compatible with hepatobiliary dysfunction. Correlate clinically to exclude hepatitis. 2. The gallbladder does not fill with tracer. Acute cholecystitis cannot be excluded on this study, however is considered less likely. Diagnostic Findings IMPRESSION: Diffuse gallbladder wall thickening is seen. Please see nuclear medicine hepatobiliary study for findings suggesting acute hepatitis with reactive gallbladder wall thickening. PG Care Time/CCT Total # of Minutes Spent Total Time Spent with Patient: Total time spent is greater than 50% in coordination of care (as documented) at patient's floor/unit and/or counseling patient: Coding Level of Care Code 74324 Subseq Hosp Care Lvl 1 Diagnoses Jaundice R17 Transaminitis R74.01
--- NOTE | 2021-09-14 09:47 | Gastroenterology Progress Note ---
Date of Service September 14, 2021 Assessment & Plan (1) Jaundice: (2) Hepatitis: Plan: Question alcoholic hepatitis vs viral hepatitis vs autoimmune vs other. -Continue to monitor Bili & LFTs. Bilirubin can take 8 weeks to normalize and can be monitored for resolution as an outpatient. -Obtain autoimmune studies. -Advise alcohol avoidance. -Supportive care per primary team. Admission and Anticipated Discharge Date Admission Date: September 12, 2021 Supervising Physician Co-Signing Physician Notes I personally evaluated the patient and agree with the findings as documented by Aileen Yang, GIOVANNI Exam: Constitutional: WD/WN, vitals as above General: EOM intact bilaterally Neck: normal visual inspection Respiratory: normal respiratory effort, lungs clear to auscultation Cardiovascular: RRR, no murmur, no edema Gastrointestinal: abdomennormal to inspection, nondistended, soft, nontender, no hepatosplenomegaly Musculoskeletal: no cyanosis, head normal to inspection Skin: no rashes, warm and dry, +jaundice Neurologic: moves all extremities Psychiatric: A and O x3, decreased affect check autoimmune hepatitis labs including alpha 1 antitrypsin, AMA, KIMMY, ASMA,, ceruloplasmin, ferritin check viral hepatitis studies if not done already. supportive care Subjective Patient is a 36 yo male with an unspecified hepatitis. He underwent an MRCP and HIDA scan yesterday that indicated a nonspecific hepatitis. T bili is currently 12.9. D bili 7.2. INR 1.0. AST 262. ALT 160. Alk phos is 1386. He feels he is seeing improvement in his jaundice. Sodium is 129 at present. Hepatitis A, B, C testing unremarkable. EBV/CMV pending. Lyme/Anaplasmosis negative. COVID19 negative. Alcohol level on admission negative. He denies antibiotic use x 2 years. Review of Systems Constitutional: no fever and no chills Respiratory: no cough and no dyspnea Cardiovascular: no chest pain Gastrointestinal: no abdominal pain, no nausea and no vomiting Integumentary: no yellowing of the skin Psychiatric: no problem reported Physical Exam Constitutional: well developed Respiratory: normal respiratory effort Skin: + jaundice Psychiatric: Orientation: alert and oriented x 3 Results & Data Results & Data ([facility]) Vital Signs (Past 12 Hours) Vital Signs Temp Pulse Pulse Resp BP Pulse Ox 03/29/22 07:33 36.7 C 105 H 19 130/89 99 09/14/21 07:18 73 09/14/21 03:15 37.0 C 105 H 18 113/76 98 09/13/21 23:21 36.6 C 88 18 146/87 H 96 PG Care Time/CCT Total # of Minutes Spent Total Time Spent with Patient: Total time spent is greater than 50% in coordination of care (as documented) at patient's floor/unit and/or counseling patient: Coding Level of Care Code 63984 Subseq Hosp Care Lvl 3 Diagnoses Jaundice R17 Hepatitis K75.9
--- NOTE | 2021-09-14 10:39 | Nephrology Progress Note ---
Date of Service September 14, 2021 Assessment & Plan (1) Electrolyte and fluid disorder: Plan: Admission studies consistent with polydipsia. Presenting sodium 120 on September 12. Sodium 24 hours later 126 which is appropriate rate of correction. 129 today w/ some low k already repleted. goal sodium for tomorrow midday is no more than 135. Not particularly fluid overloaded on exam. possible that his fall 8 days prior to presentation related to hyponatremia -on regular diet now > added 1.5L FR protein shakes do not count toward this fluid limit -pls check daily mag, bmp, phos -recheck bmp 1600 ordered -no nsaids Admission and Anticipated Discharge Date Admission Date: September 12, 2021 Subjective no interval events. pt comments he's felt a bit confused today; no n/v; poor po ongoing Review of Systems Review of Systems: All systems reviewed & are unremarkable except as noted in Subjective Physical Exam Constitutional: well developed, + thin and cooperative; no acute distress Eyes: + scleral abnormality (icteric sclerae), + anicteric sclerae and EOM intact bilaterally ENMT: Ears: no external ear abnormality Nose: no external nose abnormality Mouth: + dry oral mucous membranes Neck: no nuchal rigidity Respiratory: normal respiratory effort Auscultation: + diminished lung sounds Cardiovascular: Rate/Rhythm: regular rhythm and + tachycardic Extremities: no edema Gastrointestinal (Abdomen): Inspection/Auscultation: normal bowel sounds Percussion/Palpation: abdomen soft; abdomen nontender Musculoskeletal: Extremities: strength 5/5 throughout Skin: no rashes, warm and dry Psychiatric: Orientation: oriented x 3 Speech: normal rate/rhythm/volume of speech Results & Data ([facility]) Vital Signs (Past 12 Hours) Vital Signs Temp Pulse Pulse Resp BP Pulse Ox 09/14/21 07:33 36.7 C 105 H 19 130/89 99 09/14/21 07:18 73 09/14/21 03:15 37.0 C 105 H 18 113/76 98 09/13/21 23:21 36.6 C 88 18 146/87 H 96 Laboratory Results 09/14/21 05:41 09/14/21 06:54 am labs reviewed > Na 129
[2021-09-14] MEDS ORDERED: LORazepam 2 MG/1 ML VIAL IV PRN ×3 (12:12)
[2021-09-14] MEDS ORDERED: GABAPENTIN 800MG ALCOHOL WITHDRAWAL LOAD PO STA (12:12)
[2021-09-14] MEDS ORDERED: ATIVAN IV ALCOHOL WITHDRAWL IV PRN (12:12)
[2021-09-14] MEDS ORDERED: LORazepam 2 MG/1 ML VIAL ONE (12:18)
[2021-09-14] MEDS: LORazepam 2 MG/1 ML VIAL IV STA ×2 (12:22→12:47)
[2021-09-14] MEDS ORDERED: GABAPENTIN 400 MG CAP PO ONE (13:00)
[2021-09-14 13:07] LABS: EBV Nuclear Ag Antibody >600.00 U/mL; EBV Virus Capsid Ag IgG Ab >750.00 U/mL; Epstein Barr Virus Early Ag Ab >150.00 U/mL
--- NOTE | 2021-09-14 13:34 | Hospitalist Progress Note ---
Date of Service September 14, 2021 Assessment & Plan Plan: Alcohol withdrawal DT -will give 1 dose ativan 1mg IV now -start gabapentin taper -PRN ativan IV based on withdrawal score -continue thiamine, folate -avoid long acting BZDs like valium due to his liver disease Transaminitis -May be due to acute alcohol hepatitis -Workup so far unrevealing (EBV serology suggests prior infection, Lyme neg, HBV/HCV/Hep A all negative) -Follow up remaining viral studies, autoimmune hepatitis panel ordered by GI Hyponatremia Hypochloremia -likely due to alcohol use -Improved -would continue to monitor BMP and does not need IVF currently -appreciate Nephrology input Hypokalemia -repleted Nausea/vomiting -continue PPI -zofran PRN Abdominal discomfort -avoid tylenol, NSAIDs -tramadol 50mg Q 6PRN for severe pain Thrombocytopenia -likely due to alcohol use Macrocytosis -folate normal, B12 pending Current every day smoker -1ppd, continue nicotine patch 21mg daily DVT ppx SCDs, ambulation Admission and Anticipated Discharge Date Admission Date: September 12, 2021 Subjective Patient now with mild confusion (thinks it is 2009), anxiety, diaphoresis and tachycardia --> appears to be withdrawing from alcohol Initially patient only admitted to drinking 2 beers/day. Now, when asked he says "depends on the day" Physical Exam Physical Exam: Confused, pacing around the room Constitutional: Diaphoretic Eyes: +icterus Respiratory: Breathing comfortably on room air, no wheezing/rhonchi/rales Cardiovascular: +Tachycardic Gastrointestinal (Abdomen): soft, non tender Musculoskeletal: No edema Neurologic: AAO x 2 (knows he is in the hospital, thinks it is 2009, oriented to self), ambulating with no difficulty, tremulous Psychiatric: anxious Results & Data Results & Data ([facility]) Vital Signs (Past 12 Hours) Vital Signs Temp Pulse Pulse Resp BP Pulse Ox 09/14/21 12:14 98 H 20 137/87 97 09/14/21 12:10 100 H 09/14/21 11:22 36.5 C 121 H 21 113/80 100 09/14/21 07:33 36.7 C 105 H 19 130/89 99 09/14/21 07:18 73 09/14/21 03:15 37.0 C 105 H 18 113/76 98 Laboratory Results Short CBC 09/14/21 Range/Units 05:41 WBC 4.64 L (4.8-10.8) K/uL Hgb 12.8 L (14.0-18.0) g/dL Hct 40.1 L (42-52) % Plt Count 79 L (130-400) K/uL BMP 09/13/21 09/13/21 09/14/21 16:43 17:51 05:41 Sodium 127 L 129 L Potassium 3.2 L Chloride 93 L 94 L Carbon Dioxide 26 26 BUN 2 L 3 L Creatinine 0.81 0.81 Glucose 77 85 Calcium 8.2 L 8.3 L 09/14/21 06:54 Sodium Potassium 3.4 L Chloride Carbon Dioxide BUN Creatinine Glucose Calcium Liver Function 09/14/21 09/14/21 Range/Units 05:41 06:54 Total Bilirubin 12.9 H (0.2-1.0) mg/dl Direct Bilirubin 7.2 H (0-0.2) mg/dl AST 262 H (13-39) U/L ALT 160 H (7-52) U/L Alkaline Phosphatase 1386 H (34-104) U/L Albumin 3.0 L (3.4-5.0) gm/dl Medications Administered Current Inpatient Medications Folic Acid (Folic Acid 1 Mg Tab) 1 mg PO QAM [facility] Stop: 10/13/21 08:59 Last Admin: 09/14/21 07:59 Dose: 1 mg Documented by: Gabapentin (Gabapentin 400 Mg Cap) 400 mg PO Q6H [facility] Stop: 09/15/21 00:01 Gabapentin (Gabapentin 400 Mg Cap) 400 mg PO Q8H [facility] Stop: 09/16/21 00:01 Gabapentin (Gabapentin 400 Mg Cap) 400 mg PO Q12H [facility] Stop: 09/17/21 00:01 Gabapentin (Gabapentin 400 Mg Cap) 400 mg PO Q24H [facility] Stop: 09/18/21 00:01 Lorazepam (Lorazepam 2 Mg/1 Ml Vial) 1 mg IV UD PRN; Protocol PRN Reason: EtOH Withdrawl AWSS Score 6,7 Stop: 10/14/21 12:11 Lorazepam (Lorazepam 2 Mg/1 Ml Vial) 2 mg IV UD PRN; Protocol PRN Reason: EtOH Withdrawl AWSS Score 8,9 Stop: 10/14/21 12:11 Lorazepam (Lorazepam 2 Mg/1 Ml Vial) 3 mg IV ONCE PRN; Protocol PRN Reason: EtOH Withdrawl AWSS Score >=10 Stop: 10/14/21 12:11 Magnesium Oxide (Magnesium Oxide 400 Mg Tab) 400 mg PO QAM [facility] Stop: 09/16/21 08:59 Last Admin: 09/14/21 07:59 Dose: 400 mg Documented by: Miscellaneous (,) 1 ea N/A DAILY@0859 [facility] Stop: 10/13/21 08:58 Last Admin: 09/14/21 07:59 Dose: 1 ea Documented by: Nicotine (Nicotine 21 Mg/24 Hr Tdsy) 21 mg TD QAM [facility] Stop: 10/13/21 08:59 Last Admin: 09/14/21 07:59 Dose: 21 mg Documented by: Ondansetron HCl (Ondansetron Inj 2 Mg/Ml 2 Ml Vial) 4 mg IV Q6H PRN PRN Reason: Nausea Stop: 10/12/21 15:31 Pantoprazole Sodium (Pantoprazole 40 Mg Tab) 40 mg PO BID [facility] Stop: 10/13/21 20:59 Last Admin: 09/14/21 07:59 Dose: 40 mg Documented by: Thiamine HCl (Thiamine Hcl 100 Mg Tab) 100 mg PO QAM [facility] Stop: 10/13/21 08:59 Last Admin: 09/14/21 07:59 Dose: 100 mg Documented by: Zolpidem Tartrate (Zolpidem Tartrate 5 Mg Tab) 5 mg PO HS PRN PRN Reason: Sleep Stop: 10/12/21 15:31
--- NOTE | 2021-09-14 13:58 | Hospitalist Progress Note ---
Date of Service September 13, 2021 Assessment & Plan Plan: Transaminitis -Markedly elevated LFTs, T bili -RUQ u/s equivocal for acute cholecystitis (GB wall thickened no stones noted), no CBD dilation. HIDA scan shows abnormal uptake shows hepatocellular dysfunction, acute cholecystitis less likely -MRCP shows diffuse GB wall thickening -appreciate GI, surgery input Hyponatremia Hypochloremia -likely due to hypovolemia. Patient also with hyponatremia 2 months prior which was believed to be from alcohol use (although currently he only admits to 2 beers/day) -Na stable -Appreciate Nephrology input Nausea/vomiting -resolved Abdominal discomfort -avoid tylenol, NSAIDs -tramadol 50mg Q 6PRN for severe pain Thrombocytopenia -likely in setting of current acute illness. If heavy alcohol drinking (which he denies) may be from alcohol. Macrocytosis -check B12, folate Current every day smoker -1ppd, continue nicotine patch 21mg daily Admission and Anticipated Discharge Date Admission Date: September 12, 2021 Subjective Hungry, wants to eat No nausea/vomiting/abdominal pain since admission Physical Exam Physical Exam: No acute distress, sitting in bed Eyes: +icteric Respiratory: Breathing comfortably on room air, no wheezing/rhonchi/rales Cardiovascular: regular rate and rhythm, no murmurs/rubs/gallops Gastrointestinal (Abdomen): soft, non tender Musculoskeletal: no edema Skin: Multiple tattoos Neurologic: awake, alert, ambulating in room with no difficulty Psychiatric: Normal affect Results & Data Results & Data ([facility]) Vital Signs (Past 12 Hours) Vital Signs Temp Pulse Pulse Resp BP Pulse Ox 09/14/21 12:14 98 H 20 137/87 97 09/14/21 12:10 100 H 09/14/21 11:22 36.5 C 121 H 21 113/80 100 09/14/21 07:33 36.7 C 105 H 19 130/89 99 09/14/21 07:18 73 09/14/21 03:15 37.0 C 105 H 18 113/76 98
[2021-09-14] MEDS: GABAPENTIN 400 MG CAP PO SCH (17:23)
[2021-09-14 18:07] LABS: Amphetamines+Metham, Urine Neg (Neg); Barbiturates, Urine Neg (Neg); Benzodiazepine, Urine Neg (Neg); Cocaine, Urine Neg (Neg); MDMA (Ecstacy), Urine Neg (Neg); Methadone, Urine Neg (Neg); Opiate, Urine Neg (Neg); Phencyclidine, Urine Neg (Neg)
[2021-09-14 18:10] LABS: BUN Creatinine Ratio 3.3 (10-20); Calcium 8.2 mg/dl (8.5-10.1); Creatinine Clr Calc Pharmacy 91.6 ml/min; Est GFR (African American) 125.1 ml/min; Potassium 3.7 mmol/L (3.5-5.1)
[2021-09-15] MEDS: GABAPENTIN 400 MG CAP PO SCH (00:56)
[2021-09-15 04:02] LABS: Parvovirus B19 Qual Source Plasma; Parvovirus B19 Qualitative Not Detected (Not Detected)
[2021-09-15 06:03] LABS: Hematocrit (blood only) 39.2 % (42-52); Hemoglobin 12.4 g/dL (14.0-18.0); Mean Corpuscular Hemoglobin 33.5 pg (25-34); Mean Corpuscular Hgb Conc 31.6 g/dL (32-36); Mean Corpuscular Volume 105.9 fL (80-100); RDW Coefficient of Variation 12.4 % (11.5-14.5); RDW Standard Deviation 47.8 fL (36.4-46.3); White Blood Count 4.86 K/uL (4.8-10.8)
[2021-09-15 06:06] LABS: Mean Platelet Volume 11.1 fL (7.4-10.4); Platelet Count 77 K/uL (130-400)
[2021-09-15 06:11] LABS: Prothrombin Time 10.7 Seconds (9.0-12.0)
[2021-09-15 06:45] LABS: Albumin Level 2.9 gm/dl (3.4-5.0); BUN Creatinine Ratio 3.4 (10-20); Bilirubin,Total 10.8 mg/dl (0.2-1.0); Calcium 8.3 mg/dl (8.5-10.1); Creatinine Clr Calc Pharmacy 94.6 ml/min; Est GFR (African American) 125.7 ml/min; Est GFR (Non-African American) 108.5 ml/min; Total Protein 5.1 gm/dl (6.0-8.3)
[2021-09-15] MEDS ORDERED: GABAPENTIN 400 MG CAP PO SCH (08:00)
[2021-09-15 08:05] LABS: Bilirubin Direct 6.4 mg/dl (0-0.2); Potassium 3.5 mmol/L (3.5-5.1)
[2021-09-15] MEDS: FOLIC ACID 1 MG TAB PO SCH (08:54)
[2021-09-15] MEDS: MAGNESIUM OXIDE 400 MG TAB PO SCH (08:54)
[2021-09-15] MEDS: , SCH (08:54)
[2021-09-15] MEDS: PANTOprazole 40 MG TAB PO SCH (08:55)
[2021-09-15] MEDS: THIAMINE HCL 100 MG TAB PO SCH (08:55)
[2021-09-15] MEDS: NICOTINE 21 MG/24 HR TDSY TD SCH (08:55)
--- NOTE | 2021-09-15 10:14 | Gastroenterology Progress Note ---
Date of Service September 15, 2021 Assessment & Plan (1) Transaminitis: Plan: Unclear etiology at present. Consider alcoholic hepatitis vs drug induced cholestasis vs AIH vs PBC (given elevated AP) vs other We will follow-up on patient's autoimmune studies with him as an outpatient. LFTs are trending down, patient denies abdominal pain, and MRCP was negative for obstructive issues. Can take 6-8 weeks to resolve. Would abstain from alcohol. We will continue to monitor LFTs including alk phos as an outpatient once he is discharged. (2) Hepatitis: Admission and Anticipated Discharge Date Admission Date: September 12, 2021 Supervising Physician Co-Signing Physician Notes I personally evaluated the patient and agree with the findings as documented by Aileen Yang, PAC Exam: Constitutional: WD/WN, vitals as above General: EOM intact bilaterally, +scleral icterus Neck: normal visual inspection Respiratory: normal respiratory effort, lungs clear to auscultation Cardiovascular: RRR, no murmur, no edema Gastrointestinal: abdomennormal to inspection, nondistended, soft, nontender, no hepatosplenomegaly Musculoskeletal: no cyanosis, head normal to inspection Skin: no rashes, warm and dry, +jaundice Neurologic: moves all extremities, no asterixis Psychiatric: A and O x3, euthymic affect Subjective Patient is a 36 yo male with hepatitis. Clinical concern is for alcoholic hepatitis contributing to a cholestasis, however other labs are pending to assess for PBC, Autoimmune hepatitis, Humberto's Disease, etc. MRCP negative for obstruction. T Bili 10.8, D Bili 6.4, AST 236, ALT 154, AP 1349. Review of Systems Constitutional: no fever and no chills Respiratory: no cough and no dyspnea Cardiovascular: no chest pain Gastrointestinal: no abdominal pain Physical Exam Constitutional: well developed Respiratory: normal respiratory effort Cardiovascular: Rate/Rhythm: regular rate Gastrointestinal (Abdomen): Inspection/Auscultation: abdomen normal to inspection Musculoskeletal: Head/Neck/Chest: normocephalic Skin: + jaundice Psychiatric: Orientation: alert and oriented x 3 Results & Data Results & Data ([facility]) Vital Signs (Past 12 Hours) Vital Signs Temp Pulse Pulse Resp BP Pulse Ox 09/15/21 07:45 36.7 C 99 H 18 121/85 96 09/15/21 07:27 84 09/15/21 03:57 36.5 C 87 18 122/80 97 09/15/21 01:10 71 09/14/21 22:56 36.8 C 78 18 122/70 97 PG Care Time/CCT Total # of Minutes Spent Total Time Spent with Patient: Total time spent is greater than 50% in coordination of care (as documented) at patient's floor/unit and/or counseling patient: Coding Level of Care Code 24519 Subseq Hosp Care Lvl 2 Diagnoses Transaminitis R74.01 Hepatitis K75.9
--- NOTE | 2021-09-15 12:05 | Hospitalist Progress Note ---
Date of Service September 15, 2021 Assessment & Plan (1) Cholestasis: Plan: Alkaline phosphatase remains very high at 1349 with total bilirubin of 10.8 AST around 230s and ALT 160 Etiology seems to be multifactorial including autoimmune hepatitis, primary biliary cirrhosis, drug-induced cholestasis and is complicated by use of alcohol Val-Schuster virus serology is positive but hepatitis panel have been negative Awaiting autoimmune work-up Appreciate GI input and recommendation-we will have outpatient GI appointment (2) Hepatitis: Plan: Hepatitis panel has been negative Val-Schuster virus serology has been positive (3) Acute hyponatremia: Plan: Sodium level has been 132 (4) Transaminitis: (5) Alcohol use: Plan: Strongly advised to quit alcohol drinking Did not require any Ativan for the last 2 days Does not have any symptoms of withdrawal at this time We will continue gabapentin as an outpatient Plan: Transaminitis -Markedly elevated LFTs, T bili -RUQ u/s equivocal for acute cholecystitis (GB wall thickened no stones noted), no CBD dilation. HIDA scan shows abnormal uptake shows hepatocellular dysfunction, acute cholecystitis less likely -MRCP shows diffuse GB wall thickening -appreciate GI, surgery input -As above Hyponatremia Hypochloremia -likely due to hypovolemia. Patient also with hyponatremia 2 months prior which was believed to be from alcohol use (although currently he only admits to 2 beers/day) -Na stable -Appreciate Nephrology input -Sodium level has been corrected at 132 Nausea/vomiting -resolved Abdominal discomfort -avoid tylenol, NSAIDs -tramadol 50mg Q 6PRN for severe pain -Denies any more abdominal discomfort Thrombocytopenia -likely in setting of current acute illness. If heavy alcohol drinking (which he denies) may be from alcohol. -Platelet count remains low at 77 Macrocytosis -check B12, folate-normal - Current every day smoker -1ppd, continue nicotine patch 21mg daily Admission and Anticipated Discharge Date Admission Date: September 12, 2021 Will be discharged this afternoon Admission and Anticipated Discharge Date Admission Date: September 12, 2021 Subjective 09/15/2021 The patient was seen and examined in medical telemetry unit He remains stable and jaundiced Denies any abdominal pain, distention, nausea and or vomiting Does not have any tremors and has been ambulating without any difficulties He wants to go home today Review of Systems Review of Systems: All systems reviewed and are unremarkable except as noted below Gastrointestinal: No abdominal distention, pain, nausea or vomiting Physical Exam Physical Exam: Lying in bed comfortably Constitutional: + ill appearing and average body habitus Eyes: Yellow discoloration of the sclera ENMT: external ear and nose normal, oropharynx normal Neck: trachea midline, no thyromegaly Respiratory: no respiratory distress Auscultation: lungs clear to auscultation bilaterally Cardiovascular: Rate/Rhythm: regular rate, regular rhythm and + tachycardic Heart Sounds: normal S1 and normal S2; no murmur Extremities: no edema Gastrointestinal (Abdomen): Inspection/Auscultation: normal bowel sounds; abdomen not distended Percussion/Palpation: abdomen soft; abdomen nontender Musculoskeletal: No acute arthritis in any joint Skin: Yellow discoloration of the skin Neurologic: Alert, awake and oriented x3. No tremors involving the outstretched hands Psychiatric: A+Ox3, euthymic affect Lymphatic: no cervical or axillary lymphadenopathy Results & Data Results & Data ([facility]) Vital Signs (Past 12 Hours) Vital Signs Temp Pulse Pulse Resp BP Pulse Ox 09/15/21 11:07 36.9 C 107 H 20 129/83 99 09/15/21 07:45 36.7 C 99 H 18 121/85 96 09/15/21 07:27 84 09/15/21 03:57 36.5 C 87 18 122/80 97 09/15/21 01:10 71 Laboratory Results Short CBC 09/15/21 Range/Units 05:50 WBC 4.86 (4.8-10.8) K/uL Hgb 12.4 L (14.0-18.0) g/dL Hct 39.2 L (42-52) % Plt Count 77 L (130-400) K/uL BMP 09/14/21 09/15/21 09/15/21 16:31 05:50 07:20 Sodium 128 L 132 L Potassium 3.7 3.5 Chloride 95 L 98 Carbon Dioxide 25 24 BUN 3 L 3 L Creatinine 0.90 0.89 Glucose 85 79 Calcium 8.2 L 8.3 L Liver Function 09/15/21 09/15/21 Range/Units 05:50 07:20 Total Bilirubin 10.8 H (0.2-1.0) mg/dl Direct Bilirubin 6.4 H (0-0.2) mg/dl AST 236 H (13-39) U/L ALT 154 H (7-52) U/L Alkaline Phosphatase 1349 H (34-104) U/L Albumin 2.9 L (3.4-5.0) gm/dl Medications Administered Current Inpatient Medications Folic [facility] (F[facility] 1 Mg Tab) [facility] [place]: 10/13/21 08:59 Last Admin: 09/15/21 08:54 Dose: 1 mg Documented by: Gabapentin (Gabapentin 400 Mg Cap) 400 mg PO Q8H [facility] Stop: 09/16/21 00:01 Last Admin: 09/15/21 08:54 Dose: 400 mg Documented by: Gabapentin (Gabapentin 400 Mg Cap) 400 mg PO Q12H [facility] Stop: 09/17/21 00:01 Gabapentin (Gabapentin 400 Mg Cap) 400 mg PO Q24H [facility] Stop: 09/18/21 00:01 Lorazepam (Lorazepam 2 Mg/1 Ml Vial) 1 mg IV UD PRN; Protocol PRN Reason: EtOH Withdrawl AWSS Score 6,7 Stop: 10/14/21 12:11 Lorazepam (Lorazepam 2 Mg/1 Ml Vial) 2 mg IV UD PRN; Protocol PRN Reason: EtOH Withdrawl AWSS Score 8,9 Stop: 10/14/21 12:11 Lorazepam (Lorazepam 2 Mg/1 Ml Vial) 3 mg IV ONCE PRN; Protocol PRN Reason: EtOH Withdrawl AWSS Score >=10 Stop: 10/14/21 12:11 Magnesium Oxide (Magnesium Oxide 400 Mg Tab) 400 mg PO [facility] Stop: 09/16/21 08:59 Last Admin: 09/15/21 08:54 Dose: 400 mg Documented by: Miscellaneous (,) 1 ea N/A DAILY@0859 [facility] Stop: 10/13/21 08:58 Last Admin: 09/15/21 08:54 Dose: 1 ea Documented by: Nicotine (Nicotine 21 Mg/24 Hr Tdsy) 21 mg TD [facility] Stop: 10/13/21 08:59 Last Admin: 09/15/21 08:55 Dose: 21 mg Documented by: Ondansetron HCl (Ondansetron Inj 2 Mg/Ml 2 Ml Vial) 4 mg IV Q6H PRN PRN Reason: Nausea Stop: 10/12/21 15:31 Pantoprazole Sodium (Pantoprazole 40 Mg Tab) 40 mg PO BID [facility] Stop: 10/13/21 20:59 Last Admin: 09/15/21 08:55 Dose: 40 mg Documented by: Thiamine HCl (Thiamine Hcl 100 Mg Tab) 100 mg PO QAM [facility] Stop: 10/13/21 08:59 Last Admin: 09/15/21 08:55 Dose: 100 mg Documented by: Zolpidem Tartrate (Zolpidem Tartrate 5 Mg Tab) 5 mg PO HS PRN PRN Reason: Sleep Stop: 10/12/21 15:31
[2021-09-15 14:45] LABS: Anti Mitochondrial Antibody NEGATIVE (NEGATIVE); Anti Nuclear Antibody Screen NEGATIVE (NEGATIVE); Smooth Muscle Antibody NEGATIVE (NEGATIVE)
--- NOTE | 2021-09-15 15:51 | Nephrology Progress Note ---
Date of Service September 15, 2021 Assessment & Plan (1) Electrolyte and fluid disorder: Plan: Admission studies consistent with polydipsia. Presenting sodium 120 on September 12. Sodium 24 hours later 126 which is appropriate rate of correction. 129 today w/ some low k already repleted. goal sodium for tomorrow midday is no more than 135. Not particularly fluid overloaded on exam. possible that his fall 8 days prior to presentation related to hyponatremia though he states this related to a misbehaving dog. -on regular diet now > recommend 1.5L fluid limit at hospital d/c, 50 oz daily >> did review that with patient protein shakes do not count toward this fluid limit NEPHRO DISCHARGE RECOMMENDATIONS -weekly bmp x 3 weeks to be ordered by nephrology RN through [facility] [place] Coord[place] -hospital d/c appt with me or Dr Napoles in 2-4 wks -fluid limit 50 oz daily at hospital discharge -protein shakes do not count toward limit -no NSAIDS Admission and Anticipated Discharge Date Admission Date: September 12, 2021 Subjective seen on rounds at 0930; no c/o. eager for d/c; tells me again he'll struggle to eat and to drink less fluid Review of Systems Review of Systems: All systems reviewed & are unremarkable except as noted in Subjective Physical Exam Constitutional: well developed, + thin and cooperative; no acute distress Eyes: + scleral abnormality (icteric sclerae), + anicteric sclerae and EOM intact bilaterally ENMT: Ears: no external ear abnormality Nose: no external nose abnormality Mouth: + dry oral mucous membranes Neck: no nuchal rigidity Respiratory: normal respiratory effort Auscultation: + diminished lung sounds Cardiovascular: Rate/Rhythm: regular rhythm and + tachycardic Extremities: no edema Gastrointestinal (Abdomen): Inspection/Auscultation: normal bowel sounds Percussion/Palpation: abdomen soft; abdomen nontender Musculoskeletal: Extremities: strength 5/5 throughout Skin: no rashes, warm and dry + jaundice Psychiatric: Orientation: oriented x 3 Speech: normal rate/rhythm/volume of speech Results & Data ([facility]) Vital Signs (Past 12 Hours) Vital Signs Temp Pulse Pulse Resp BP BP Pulse Ox 09/15/21 13:33 36.9 C 107 H 20 133/80 129/83 99 09/15/21 11:07 36.9 C 107 H 20 129/83 99 09/15/21 07:45 36.7 C 99 H 18 121/85 96 09/15/21 07:27 84 09/15/21 03:57 36.5 C 87 18 122/80 97 Laboratory Results 09/15/21 05:50 09/15/21 07:20
--- NOTE | 2021-09-16 08:20 | Discharge Summary ---
Date of Service September 16, 2021 Admission HPI Per Admitting Provider Mr Killian Maldonado is a 36 year old man with no known prior medical history, daily drinker ( admits to 2 beers/day), current smoker (1 pack per day), no street drugs, presents with 7 days of nausea/vomiting/abdominal pain and 4 days of jaundice. He denies history of similar symptoms. He has been in his usual state of health up until this. He did fall about 8 days ago while walking his dad's dog and he hit the back of his head on the stairs "hard". He takes aleve (daily for past 1 week) and benadryl as needed for pain from recent fall then he was taking it also for abdominal pain. He was last admitted here June 2021 for syncopal episode while in [facility]. At that time was found to have Na 120. It was thought he had an alcohol related seizure. He did have an EEG which was unremarkable. Admission Exam Per Admitting Provider Physical Exam: Appears stated age, no acute distress, pleasant Respiratory: Breathing comfortably on room air, no wheezing/rhonchi/rales Cardiovascular: Regular rate and rhythm, no murmurs/rubs/gallops Gastrointestinal (Abdomen): +epigastric and +RUQ tenderness, no rebo und or guarding Musculoskeletal: no edema, no peripheral muscle wasting, no cyanosis Skin: +multiple tattoos, no ulcers noted on ex posed skin, no redness Neurologic: awake, alert, spontaneously moving extremities, no tremors Psychiatric: Affect normal, speech linear, non pressured Principal Diagnosis cholestasis,Transaminitis,Hyponatremia,Alcohol use Discharge Exam Lying in bed comfortably Constitutional + ill appearing and average body habitus ENMT external ear and nose normal, oropharynx normal Neck trachea midline, no thyromegaly Respiratory no respiratory distress Auscultation: lungs clear to auscultation bilaterally Cardiovascular Rate/Rhythm: regular rate, regular rhythm and + tachycardic Heart Sounds: normal S1 and normal S2; no murmur Extremities: no edema Gastrointestinal (Abdomen) Inspection/Auscultation: normal bowel sounds; abdomen not distended Percussion/Palpation: abdomen soft; abdomen nontender Psychiatric A+Ox3, euthymic affect Lymphatic no cervical or axillary lymphadenopathy Discharge Data Allergies Allergy/AdvReac Type Severity Reaction Status Date / Time No Known Allergies Allergy Verified 09/12/21 14:43 Consultations 09/12/21 13:59 ED Decision to Admit Stat 09/12/21 15:48 Consult Gastroenterology Routine 09/12/21 15:49 Consult General Surgery Routine 09/12/21 15:50 Consult Nephrology Routine Ordered Studies 09/12/21 10:58 US gallbladder Stat 09/13/21 08:24 MR MRCP Routine Hospital Course (1) Cholestasis: Alkaline phosphatase remains very high at 1349 with total bilirubin of 10.8 AST around 230s and ALT 160 Etiology seems to be multifactorial including autoimmune hepatitis, primary biliary cirrhosis, drug-induced cholestasis and is complicated by use of alcohol Val-Schuster virus serology is positive but hepatitis panel have been negative Awaiting autoimmune work-up Appreciate GI input and recommendation-we will have outpatient GI appointment (2) Hepatitis: Hepatitis panel has been negative Val-Schuster virus serology has been positive (3) Acute hyponatremia: Sodium level has been 132 (4) Transaminitis: (5) Alcohol use: Strongly advised to quit alcohol drinking Did not require any Ativan for the last 2 days Does not have any symptoms of withdrawal at this time We will continue gabapentin as an outpatient Transaminitis -Markedly elevated LFTs, T bili -RUQ u/s equivocal for acute cholecystitis (GB wall thickened no stones noted), no CBD dilation. HIDA scan shows abnormal uptake shows hepatocellular dysfunction, acute cholecystitis less likely -MRCP shows diffuse GB wall thickening -appreciate GI, surgery input -As above Hyponatremia Hypochloremia -likely due to hypovolemia. Patient also with hyponatremia 2 months prior which was believed to be from alcohol use (although currently he only admits to 2 beers/day) -Na stable -Appreciate Nephrology input -Sodium level has been corrected at 132 Nausea/vomiting -resolved Abdominal discomfort -avoid tylenol, NSAIDs -tramadol 50mg Q 6PRN for severe pain -Denies any more abdominal discomfort Thrombocytopenia -likely in setting of current acute illness. If heavy alcohol drinking (which he denies) may be from alcohol. -Platelet count remains low at 77 Macrocytosis -check B12, folate-normal - Current every day smoker -1ppd, continue nicotine patch 21mg daily Admission and Anticipated Discharge Date Admission Date: September 12, 2021 Will be discharged this afternoon Total Time Total Time Spent Total Time Spent (In Minutes): 35 minutes Discharge Plan Discharge Items Patient Disposition: Home - Self-Care Reason For Visit: ABNORMAL LFTS Discharge Diagnosis: Abnormal liver function test, alcohol abuse, electrolyte imbalance Condition on Discharge: Fair Activity: Resume your previous activity Non-emergency contact: Primary Care Provider Call non-emergency contact if: you have any medication questions and your symptoms worsen Follow-up/Referrals: Yonatan Maravilla DO [Outside Practitioners] - (Date & Time 09/20/2021 11:20 AM Provider Yonatan Maravilla DO Department [facility] ) Diet: Regular Fluids: 1500ml (6 cups) Addtl Attending Provider Instructions: Strongly advised to quit drinking Please take precautions to avoid fall Please keep appointments with your primary care provider Gastroenterology service will call you with an appointment Take your medications as advised [facility] service will call you with appointment Pending Studies at Discharge: Yes Studies:: Serology for hepatitis Stand-Alone Forms: [employer], Smoking Cessation Medications and DC Order Prescriptions: New thiamine HCl (vitamin B1) 100 mg Tablet 100 mg PO QAM 30 Days Qty: 30 RF: 0 magnesium oxide 400 mg (241.3 mg magnesium) Tablet 400 mg PO QAM 30 Days Qty: 30 RF: 0 pantoprazole 40 mg Tablet,Delayed Release (Dr/Ec) 40 mg PO BID 30 Days Qty: 60 RF: 0 nicotine [Nicoderm CQ] 21 mg/24 hr Patch 24 Hour 21 mg transdermal QAM 30 Days Qty: 30 RF: 0 folic acid 1 mg Tablet 1 mg PO QAM 30 Days Qty: 30 RF: 0 gabapentin 400 mg Capsule 400 mg PO UD Qty: 4 RF: 0 Discontinued diphenhydramine HCl [Benadryl] 25 mg Capsule 25 mg PO Q6H PRN (Reason: Sleep) RF: 0 naproxen sodium [Aleve] 220 mg Capsule 220 mg PO Q12H PRN (Reason: Pain) RF: 0 Discharge Orders: Discharge Order (Routine); Ordered 09/15/21 Ordered By: Marily Ahumada Admission Data Admit Date/Time: 09/12/21 14:11 Attending Provider: Marily Ahumada Admit Provider: Santhosh García Primary Care Provider: PCP,NO Other Providers: Santhosh García ; Quentin Guido ; Robert Stafford ; Allen Mcdonough. Other Interventions: Discharge Summary Assessment (RN) Last Done: 09/15/21 13:33
[2021-09-16 11:21] LABS: Alpha 1 Antitrypsin 201 mg/dL (83-199); Ceruloplasmin 13 mg/dL (18-36)
[2021-09-16] MEDS ORDERED: GABAPENTIN 400 MG CAP PO SCH (12:00)
[2021-09-17 08:12] LABS: Ehrlichia chaff DNA Bld Negative (Negative)
[2021-09-17 22:26] LABS: CMV IgG Antibody <0.60 U/mL; CMV IgM Antibody <30.00 AU/mL; Q Fever IgG, Phase I NEGATIVE; Q Fever Phase I IgM Antibody NEGATIVE; Q Fever Phase II IgG Antibody NEGATIVE; Q Fever Phase II IgM Antibody NEGATIVE; R. typhi IgG Ab NOT DETECTED; R. typhi IgM Ab NOT DETECTED; RMSF IgG Ab DETECTED; RMSF IgM Ab NOT DETECTED
[2021-09-18] MEDS ORDERED: GABAPENTIN 400 MG CAP PO SCH
== END 2021-09-15 14:40 | disposition home or self-care (01) | DRG 432 ==
LOC: ED 10:23 → 2N 14:11 → SUATTDRO 14:11 → 2N 15:08
DX: E86.1 Hypovolemia; F10.231 Alcohol dependence with withdrawal delirium; E87.8 Other disorders of electrolyte and fluid balance, not elsewhere classified; K74.3 Primary biliary cirrhosis; R74.01 Elevation of levels of liver transaminase levels; K75.4 Autoimmune hepatitis; D69.59 Other secondary thrombocytopenia; K83.1 Obstruction of bile duct; R76.8 Other specified abnormal immunological findings in serum; F17.210 Nicotine dependence, cigarettes, uncomplicated; E87.1 Hypo-osmolality and hyponatremia

== ENCOUNTER 2022-02-22 20:43 | Inpatient (IN) ==
[2022-02-22 21:53] LABS: Albumin Globulin Ratio 1.5 (0.9-2); Albumin Level 4.4 gm/dl (3.4-5.0); Calcium 9.6 mg/dl (8.5-10.1); Creatinine Clr Calc Pharmacy 138.9 ml/min; Est GFR (African American) 146.8 ml/min; Est GFR (Non-African American) 126.7 ml/min; Potassium 3.2 mmol/L (3.5-5.1); Total Protein 7.4 gm/dl (6.0-8.3)
[2022-02-22] MEDS ORDERED: MULTI-VITAMIN INFUSION 10 ML, THIAMINE HCL 100 MG, FOLIC ACID 1 MG in SODIUM CHLORIDE 0... IV ONE (22:19)
[2022-02-22] MEDS ORDERED: LACTATED RINGER'S 1,000 ML IV ONE (22:19)
[2022-02-22 22:26] LABS: Basophils # (auto) 0.11 K/uL (0-0.2); Basophils % (auto) 1.9 %; Eosinophils # (auto) 0.06 K/uL (0-0.50); Hematocrit (blood only) 39.5 % (40.1-51.0); Hemoglobin 14.8 g/dl (14.0-18.0); Immature Granulocytes # (auto) 0.01 K/uL (0.00-0.02); Immature Granulocytes % (auto) 0.2 %; Lymphocytes # (auto) 0.49 K/uL (1.2-3.4); Lymphocytes % (auto) 8.4 %; Mean Corpuscular Hemoglobin 34.9 pg (25.0-34.0); Mean Corpuscular Hgb Conc 37.5 g/dL (32.0-36.0); Mean Corpuscular Volume 93.2 fL (80.0-100.0); Mean Platelet Volume 10.9 fL (9.4-12.4); Monocytes # (auto) 0.23 K/uL (0.24-0.82); Neutrophils # (auto) 4.91 K/uL (1.4-6.5); Neutrophils % (auto) 84.5 %; Platelet Count 79 K/uL (130-400); Platelet Estimate Decreased (Normal); RDW Coefficient of Variation 11.7 % (11.5-14.5); RDW Standard Deviation 39.8 fL (36.4-46.3); Red Blood Count 4.24 M/uL (4.63-6.08); White Blood Count 5.81 K/ul (4.8-10.8)
[2022-02-22] MEDS ORDERED: ONDANSETRON INJ 2 MG/ML 2 ML VIAL IV STA (22:27)
--- NOTE | 2022-02-22 22:31 | Emergency Department Note ---
Impression & Plan Alcohol withdrawal, Nausea & vomiting, Transaminitis, Hypomagnesemia ED Provider Note Provider: Boo Tinajero MD DATE OF SERVICE: 02/22/2022 CHIEF COMPLAINT: Nausea, tremors, transient dizziness HISTORY OF PRESENT ILLNESS: Patient is a 37-year-old gentleman history of significant alcohol use presenting today reporting he drank a large amount of alcohol yesterday and normally a heavy alcohol drinker of beer. States he only had half a drink earlier today and has felt unwell. States he felt sick to his stomach is been vomiting. Some slight diarrhea. Denies any pain such as headache or abdominal pain. States he had tremors all day and thus is been unable to drink. Patient states he felt a bit dizzy earlier as well and was having difficulty walking due to this. Denies any trauma. Denies a past history of hallucinations or seizures. REVIEW OF SYSTEMS: A total of 10 review of systems was obtained and negative except as stated above in the HPI. PAST MEDICAL HISTORY: As noted above MEDICATIONS: Claritin SOCIAL HISTORY: Smoker, denies other drugs, regular alcohol use PHYSICAL EXAM: GENERAL: alert and oriented seated on the stretcher appears quite tremulous Head: normocephalic and atraumatic EYES: No injection, discharge or icterus. NECK: Trachea midline. Supple. ENT: Mucous membranes pink and moist. LUNGS: Airway patent. No retractions or tachycardia HEART: Regular tachycardic rate and rhythm. No chest wall tenderness ABDOMEN: Soft and non-tender, without guarding or rebound. SKIN: Acyanotic, warm, dry, without rashes EXTREMITIES: Without swelling, tenderness or deformity NEUROLOGICAL: No focal deficits but quite tremulous. No aphasia. No facial droop or slurred speech. Normal strength and tone in the extremities. Sensation to gross touch normal. Ambulatory. EK bpm sinus bradycardia with PACs. Incomplete bundle branch block. QTc 455. No acute ST segment elevation or depression. CONTINUOUS CARDIAC MONITORING: was ordered and showed a heart rate of 50s-140s in normal sinus rhythm to sinus tachycardia and later after benzodiazepines sinu s bradycardia. Patient's laboratory studies and imaging reviewed. Differential includes Overdose, toxicologic, infection, hypoglycemia, electrolyte abnormalities, cardiac sources, intracerebral event, neurologic, trauma, as well as other pathologies. IMPRESSION/MEDICAL DECISION MAKING: Patient history of alcohol use felt nauseous unable to drink today and now tremulous and dizzy. No trauma reported. Denies hallucinations or seizures in the past but there is a question of seizure based on prior records in the medical record here. Some liver elevations although bilirubin not as elevated previously. Thrombocytopenia noted similar to previous in spring. Given some IV fluids as well as banana bag and some benzodiazepine to help with symptoms. EKG obtained. Given some Zofran. Denies significant abdominal pain or tenderness. Doubt acute intra-abdominal pathology. No evidence of trauma and he patient denies a history of trauma and doubt head injury at this time. No focal deficits on clinical exam at this point. Believe given his significant withdrawal symptoms and tremulousness this point he requires further observation here at the hospital. Two doses of benzodiazepine were effective in controlling his tachycardia and tremulous symptoms. DIAGNOSIS: Alcohol withdrawal, nausea and vomiting, hypomagnesemia DISPOSITION: Hospitalist will evaluate Patient was agreeable with this plan. Past Med/Surg History Medical History Alcohol use Chronic hyponatremia Tobacco use Surgical History No pertinent past surgical history Family History (Updated 09/13/21 @ 22:09 by Nakul Allred PA-C) Other Multiple myeloma Social History Smoking Status: Current every day smoker Tobacco Type: Cigarettes Second Hand Exposure: Yes; Hx Alcohol Use: Yes Alcohol type: beer Hx Substance Use: Yes Preferred Language: Estonian Communication Ability: Effective Hearing Ability: Normal Director Presales Required: No Beliefs That Will Affect Care: None marital status: Single Current Living Situation: Family current occupational status: employed Feels Safe at Home: Yes Assistive Devices: Hospital Bed Allergies Allergies Allergy/AdvReac Type Severity Reaction Status Date / Time No Known Allergies Allergy Verified 02/22/22 23:42 Home Meds Home Medications Medication Instructions Recorded Confirmed cyanocobalamin (vitamin B-12) 500 0 mcg PO DAILY 02/22/22 02/22/22 mcg tablet (Vitamin B-12) loratadine 10 mg tablet (Claritin) 10 mg PO DAILY PRN allergies 02/22/22 02/22/22 magnesium 250 mg tablet 0 mg PO DAILY 02/22/22 02/22/22 multivitamin 1 tab PO DAILY 02/22/22 02/22/22 naproxen sodium 220 mg tablet 220 mg PO BID PRN Pain 02/22/22 02/22/22 (Aleve) Results & Data (ED) Vital Signs Vital Signs - 24 hr 02/22/22 21:01 02/22/22 22:17 02/22/22 21:30 Temperature 36.7 C Temperature Source Oral Pulse Rate 83 84 Pulse Rate [Apical] 94 H Pulse Rate from SpO2 Sensor 89 Respiratory Rate 20 20 21 Respiratory Effort / Characteristics Non-Labored Spontaneous Non-Labored Spontaneous Respiratory Depth Normal Normal Blood Pressure 131/76 Blood Pressure [Right Arm] 143/86 H Blood Pressure Mean 94 Blood Pressure Mean [Right Arm] 105 Pulse Oximetry 99 100 98 Oxygen Delivery Method Room Air Room Air Room Air Sepsis Recent Fever Within 48 Hours No Sepsis New/Unexplained Change in Mental Status No Sepsis Action Taken by Nursing No Action Required 02/22/22 23:00 02/23/22 00:00 02/23/22 01:19 Temperature Temperature Source Pulse Rate 87 76 Pulse Rate [Apical] Pulse Rate from SpO2 Sensor Respiratory Rate 23 15 Respiratory Effort / Characteristics Respiratory Depth Blood Pressure 124/84 131/85 Blood Pressure [Right Arm] Blood Pressure Mean 97 100 Blood Pressure Mean [Right Arm] Pulse Oximetry 99 96 99 Oxygen Delivery Method Room Air Room Air Room Air Sepsis Recent Fever Within 48 Hours Sepsis New/Unexplained Change in Mental Status Sepsis Action Taken by Nursing Laboratory Data Result diagrams: 02/22/22 21:15 02/22/22 21:15 Lab Results 02/22/22 02/22/22 02/22/22 Range/Units 21:15 21:15 21:15 WBC 5.81 (4.8-10.8) K/ul RBC 4.24 L (4.63-6.08) M/uL Hgb 14.8 (14.0-18.0) g/dl Hct 39.5 L (40.1-51.0) % MCV 93.2 (80.0-100.0) fL MCH 34.9 H (25.0-34.0) pg MCHC 37.5 H (32.0-36.0) g/dL RDW Std Deviation 39.8 (36.4-46.3) fL RDW Coeff of Randall 11.7 (11.5-14.5) % Plt Count 79 L (130-400) K/uL MPV 10.9 (9.4-12.4) fL Immature Gran % (Auto) 0.2 % Neut % (Auto) 84.5 % Lymph % (Auto) 8.4 % [place] % (Auto) 4.0 % Eos % (Auto) 1.0 % Baso % (Auto) 1.9 % Neut # (Auto) 4.91 (1.4-6.5) K/uL Lymph # (Auto) 0.49 L (1.2-3.4) K/uL [place] # (Auto) 0.23 L (0.24-0.82) K/uL Eos # (Auto) 0.06 (0-0.50) K/uL Baso # (Auto) 0.11 (0-0.2) K/uL Immature Gran # (Auto) 0.01 (0.00-0.02) K/uL Platelet Estimate Decreased L (Normal) PT (9.0-12.0) Seconds INR (0.9-1.1) Sodium 135 L (136-145) mmol/L Potassium 3.2 L (3.5-5.1) mmol/L Chloride 92 L (98-107) mmol/L Carbon Dioxide 24 (21-32) mmol/L Anion Gap 19 H (3-11) BUN 6 (6-23) mg/dl Creatinine 0.60 (0.6-1.4) mg/dl Est Cr Clr Drug Dosing 138.9 ml/min Est GFR ( Amer) 146.8 ml/min Est GFR (Non-Af Amer) 126.7 ml/min BUN/Creatinine Ratio 10.0 (10-20) Glucose 145 H (70-99(Fasting)) mg/dl Lactate (0.4-2.0) mmol/L Calcium 9.6 (8.5-10.1) mg/dl Magnesium (1.7-2.4) mg/dl Total Bilirubin 2.0 H (0.2-1.0) mg/dl AST 262 H (13-39) U/L ALT 107 H (7-52) U/L Alkaline Phosphatase 244 H (34-104) U/L Total Protein 7.4 (6.0-8.3) gm/dl Albumin 4.4 (3.4-5.0) gm/dl Globulin 3.0 (2.5-4.0) gm/dl Albumin/Globulin Ratio 1.5 (0.9-2) Lipase (11-82) U/L Ethyl Alcohol mg/dL < 10.0 (<10.0) mg/dl SARS-CoV-2, RNA, NAAT (NEGATIVE) 02/22/22 02/22/22 02/23/22 Range/Units 21:15 23:02 00:22 WBC (4.8-10.8) K/ul RBC (4.63-6.08) M/uL Hgb (14.0-18.0) g/dl Hct (40.1-51.0) % MCV (80.0-100.0) fL MCH (25.0-34.0) pg MCHC (32.0-36.0) g/dL RDW Std Deviation (36.4-46.3) fL RDW Coeff of Randall (11.5-14.5) % Plt Count (130-400) K/uL MPV (9.4-12.4) fL Immature Gran % (Auto) % Neut % (Auto) % Lymph % (Auto) % [place] % (Auto) % Eos % (Auto) % Baso % (Auto) % Neut # (Auto) (1.4-6.5) K/uL Lymph # (Auto) (1.2-3.4) K/uL [place] # (Auto) (0.24-0.82) K/uL Eos # (Auto) (0-0.50) K/uL Baso # (Auto) (0-0.2) K/uL Immature Gran # (Auto) (0.00-0.02) K/uL Platelet Estimate (Normal) PT 11.3 (9.0-12.0) Seconds INR 1.1 (0.9-1.1) Sodium (136-145) mmol/L Potassium (3.5-5.1) mmol/L Chloride (98-107) mmol/L Carbon Dioxide (21-32) mmol/L Anion Gap (3-11) BUN (6-23) mg/dl Creatinine (0.6-1.4) mg/dl Est Cr Clr Drug Dosing ml/min Est GFR ( Amer) ml/min Est GFR (Non-Af Amer) ml/min BUN/Creatinine Ratio (10-20) Glucose (70-99(Fasting)) mg/dl Lactate (0.4-2.0) mmol/L Calcium (8.5-10.1) mg/dl Magnesium 1.1 L (1.7-2.4) mg/dl Total Bilirubin (0.2-1.0) mg/dl AST (13-39) U/L ALT (7-52) U/L Alkaline Phosphatase (34-104) U/L Total Protein (6.0-8.3) gm/dl Albumin (3.4-5.0) gm/dl Globulin (2.5-4.0) gm/dl Albumin/Globulin Ratio (0.9-2) Lipase 40 (11-82) U/L Ethyl Alcohol mg/dL (<10.0) mg/dl SARS-CoV-2, RNA, NAAT NEGATIVE (NEGATIVE) 02/23/22 Range/Units 00:29 WBC (4.8-10.8) K/ul RBC (4.63-6.08) M/uL Hgb (14.0-18.0) g/dl Hct (40.1-51.0) % MCV (80.0-100.0) fL MCH (25.0-34.0) pg MCHC (32.0-36.0) g/dL RDW Std Deviation (36.4-46.3) fL RDW Coeff of Randall (11.5-14.5) % Plt Count (130-400) K/uL MPV (9.4-12.4) fL Immature Gran % (Auto) % Neut % (Auto) % Lymph % (Auto) % [place] % (Auto) % Eos % (Auto) % Baso % (Auto) % Neut # (Auto) (1.4-6.5) K/uL Lymph # (Auto) (1.2-3.4) K/uL [place] # (Auto) (0.24-0.82) K/uL Eos # (Auto) (0-0.50) K/uL Baso # (Auto) (0-0.2) K/uL Immature Gran # (Auto) (0.00-0.02) K/uL Platelet Estimate (Normal) PT (9.0-12.0) Seconds INR (0.9-1.1) Sodium (136-145) mmol/L Potassium (3.5-5.1) mmol/L Chloride (98-107) mmol/L Carbon Dioxide (21-32) mmol/L Anion Gap (3-11) BUN (6-23) mg/dl Creatinine (0.6-1.4) mg/dl Est Cr Clr Drug Dosing ml/min Est GFR ( Amer) ml/min Est GFR (Non-Af Amer) ml/min BUN/Creatinine Ratio (10-20) Glucose (70-99(Fasting)) mg/dl Lactate 0.8 (0.4-2.0) mmol/L Calcium (8.5-10.1) mg/dl Magnesium (1.7-2.4) mg/dl Total Bilirubin (0.2-1.0) mg/dl AST (13-39) U/L ALT (7-52) U/L Alkaline Phosphatase (34-104) U/L Total Protein (6.0-8.3) gm/dl Albumin (3.4-5.0) gm/dl Globulin (2.5-4.0) gm/dl Albumin/Globulin Ratio (0.9-2) Lipase (11-82) U/L Ethyl Alcohol mg/dL (<10.0) mg/dl SARS-CoV-2, RNA, NAAT (NEGATIVE) Administered Medications Discontinued Medications Diazepam (Diazepam 5 Mg/Ml Inj 10ml Vial) 5 mg IV NOW STA Stop: 02/22/22 22:23 Last Admin: 02/22/22 22:36 Dose: 5 mg Documented By: BECCA Diazepam (Diazepam 5 Mg/Ml Inj 10ml Vial) 5 mg IV NOW STA Stop: 02/22/22 23:02 Last Admin: 02/23/22 01:01 Dose: 5 mg Documented By: BECCA Lactated Ringer's (Lr) 1,000 mls @ 999 mls/hr IV .Q1H1M ONE Stop: 02/22/22 23:19 Last Infusion: 02/23/22 00:04 Dose: 0 mls/hr Documented By: Admin: 02/22/22 22:59 Dose: 999 mls/hr Documented By: BECCA Multivitamins 10 ml/ Thiamine HCl 100 mg/ Folic Acid 1 mg/Sodium Chloride 1,011.2 mls @ 1,011.2 mls/hr IV .Q1H ONE Stop: 02/22/22 23:18 Last Admin: 02/23/22 00:55 Dose: 1,011.2 mls/hr Documented By: BECCA Magnesium Sulfate/Dextrose (Magnesium Sulfate / D5w) 1 gm in 100 mls @ 100 mls/hr IV Q1H MEMO Stop: 02/23/22 00:26 Last Infusion: 02/23/22 00:54 Dose: 0 mls/hr Documented By: Admin: 02/22/22 23:35 Dose: 100 mls/hr Documented By: Infusion: 02/22/22 23:35 Dose: 100 mls/hr Documented By: Admin: 02/22/22 22:35 Dose: 100 mls/hr Documented By: BECCA Potassium Acetate 60 meq/ (Sodium Chloride) 1,030 mls @ 125 mls/hr IV .Q8H15M MEMO Stop: 03/24/22 23:44 Last Admin: 02/23/22 01:02 Dose: Not Given Documented By: BECCA Ondansetron HCl (Ondansetron Inj 2 Mg/Ml 2 Ml Vial) 4 mg IV NOW STA Stop: 02/22/22 22:28 Last Admin: 02/22/22 22:36 Dose: 4 mg Documented By: BECCA Discharge Plan Visit Data Chief Complaint: Alcohol Withdrawal ED Provider: Boo Tinajero Discharge Problem: Alcohol withdrawal, Nausea & vomiting, Transaminitis, Hypomagnesemia Patient Disposition: Being Evaluated by Hospitalist Forms Stand Alone Forms: [facility], Suicide Prevention Resources Prescriptions Prescriptions: No Action multivitamin Tablet 1 tab PO DAILY cyanocobalamin (vitamin B-12) [Vitamin B-12] 500 mcg Tablet 0 mcg PO DAILY naproxen sodium [Aleve] 220 mg Tablet 220 mg PO BID PRN (Reason: Pain) magnesium 250 mg Tablet 0 mg PO DAILY loratadine [Claritin] 10 mg Tablet 10 mg PO DAILY PRN (Reason: allergies) Referrals Referrals: PCP,NO [Primary Care Provider] - : Alcohol withdrawal Qualifiers: Complication of substance-induced condition: with unspecified complication Qualified Code(s): F10.939 - Alcohol use, unspecified with withdrawal, unspecified Nausea & vomiting Qualifiers: Vomiting type: unspecified Qualified Code(s): R11.2 - Nausea with vomiting, unspecified
[2022-02-22] MEDS: MAGNESIUM SULFATE / D5W 1 GM/100 ML BAG IV SCH ×2 (22:35→23:35)
[2022-02-22 22:42] LABS: Magnesium 1.1 mg/dl (1.7-2.4)
[2022-02-22] MEDS ORDERED: SODIUM CHLORIDE 0.9% IV SCH (23:45)
[2022-02-22] MEDS ORDERED: MAGNESIUM SULFATE IV SCH (23:45)
[2022-02-22] MEDS ORDERED: [UNRECOGNIZED DRUG - OTHER] IV SCH (23:45)
[2022-02-22] MEDS ORDERED: POTASSIUM ACETATE IV SCH ×2 (23:45)
[2022-02-22] MEDS ORDERED: ONDANSETRON INJ 2 MG/ML 2 ML VIAL IV PRN (23:56)
[2022-02-23] MEDS ORDERED: GABAPENTIN 600 MG TAB PO ONE (00:03)
[2022-02-23] MEDS ORDERED: GABAPENTIN 1200MG ALCOHOL WITHDRAWAL LOAD PO STA (00:03)
--- NOTE | 2022-02-23 00:29 | History & Physical Report ---
Date of Service February 23, 2022 Assessment & Plan (1) Alcohol withdrawal: Plan: - 1 day of alcohol withdrawal symptoms of tremors, n/v, anxiety - drinks about 6 beers daily, recently drank 12 - denies history of seizure from alcohol withdrawal - s/p Valium in ED with improvement in symptoms - avoid benzo due to transaminitis - started on gabapentin taper, AWSS protocol - will give Valium if needed for prn but will try to avoid - telemetry monitoring - seizure precautions - psych consult (2) Nausea & vomiting: Plan: - likely in the setting of alcohol withdrawal - symptoms have improved since coming to hospital - IVF for hydration - zofran prn (3) Thrombocytopenia: Plan: - stable since 08/2021 but were >150 06/2021 - US of liver 08/2021 without evidence of cirrhosis - repeat liver US ordered - no signs of bleeding - will monitor (4) Transaminitis: Plan: - chronic from ongoing alcohol use disorder - LFTs similar from in the past - ALP much improved from 08/2021 - has not followed up with GI - denies abdominal pain - previous liver imaging showed fatty infiltrate, no cirrhosis - repeat liver US ordered (5) Hyponatremia: Plan: - likely in the setting of chronic alcohol use - decreased PO intake and vomiting prior to admission - IVF as above - monitor on morning labs (6) Hypomagnesemia: Plan: - replete prn (7) Tobacco use disorder: Plan: - 1ppd for 20 years - 21mg nicotine patch ordered - smoking cessation education (8) Hypokalemia: Plan: - replete prn Plan DVT ppx: heparin Code Statu: Full Code Dispo: telemetry Deangelo Colón MD [facility] Medicine Admission and Anticipated Discharge Date Admission Date: 02/22/2022 History of Present Illness Chief Complaint: alcohol withdrawal Primary Care Provider: NO PCP The patient is a 37 year old man with pmh alochol use disorder, elevated LFTs who presented with one day of alcohol withdrawal symptoms. He reports that he drank about 12 beers the day prior to presentation. Then today, he was not feeling well and tried to drink to improve his symptoms but was not able to keep it down and because nauseous and had episodes of nonbloody, nonbilious vomiting. He reports typically drinking about 6 beers daily. He also reports having "the shakes" and feeling anxious and nauseous throughout the day. Prior to his symptoms today, he was feeling in his normal state of health. He denied any recent fevers but has felt chills today. He denies change in chronic cough, chest pain, shortness of breath, dysuria, abdominal pain, diarrhea, rash, leg swelling, increase in abdominal girth. He did have some light headedness and felt like he was going to pass out but never had episode of LOC. He was not able to eat anything all day. He reports having had alcohol withdrawal symptoms in the past but feels this is worse. He denies ever having a seizure from alcohol withdrawal. His last sober prior was about 1 month ago for about 1 week. He has smoked 1ppd cigarettes for about 20 years. Denies any other drug use. In the ED, vitals were significant for HR 94, BP wnl. Labs were significant for PLT 79 (around recent baseline but were >150 in 06/2021), Na 135, K 3.2, Cl 92, AG 19, Mg 1.1, tbili 2.0, AST 262, ALT 107, ALP 244, ETOH <10. He was given Valium x2, IVF and admitted to medicine. Allergies Allergy/AdvReac Type Severity Reaction Status Date / Time No Known Allergies Allergy Verified 02/22/22 23:42 Home Medications Medication Instructions Recorded Confirmed Type cyanocobalamin (vitamin B-12) 500 0 mcg PO DAILY 02/22/22 02/22/22 History mcg tablet (Vitamin B-12) loratadine 10 mg tablet (Claritin) 10 mg PO DAILY PRN allergies 02/22/22 02/22/22 History magnesium 250 mg tablet 0 mg PO DAILY 02/22/22 02/22/22 History multivitamin 1 tab PO DAILY 02/22/22 02/22/22 History naproxen sodium 220 mg tablet 220 mg PO BID PRN Pain 02/22/22 02/22/22 History (Aleve) Past Med/Surg History Medical History Alcohol use Chronic hyponatremia Tobacco use Surgical History No pertinent past surgical history Family History (Updated 09/13/21 @ 22:09 by Nakul Allred PA-C) Other Multiple myeloma Social History Smoking Status: Current every day smoker Tobacco Type: Cigarettes Second Hand Exposure: Yes; Hx Alcohol Use: Yes Alcohol type: beer Hx Substance Use: Yes Preferred Language: Macedonian Communication Ability: Effective Hearing Ability: Normal Customer Service Advisor Required: No Beliefs That Will Affect Care: None marital status: Single Current Living Situation: Family current occupational status: employed Feels Safe at Home: Yes Assistive Devices: Hospital Bed Review of Systems Review of Systems: All systems reviewed & are unremarkable except as noted in Subjective Physical Exam Constitutional: WD/WN, vitals as above Eyes: PERRL, conjunctivae normal, anicteric sclerae ENMT: external ear and nose normal, oropharynx normal Neck: trachea midline, no thyromegaly Respiratory: normal respiratory effort, lungs clear to auscultation Cardiovascular: RRR, no murmur, no edema Gastrointestinal (Abdomen): normal bowel sounds, soft, nontender, no hepatosplenomegaly Musculoskeletal: no cyanosis or clubbing, extremities motor strength 5/5 Skin: no rashes, warm and dry multiple tattoos on arms Neurologic: patellar DTR's 2+ bilat, sensation intact and PERRL, EOMI, accommodation nl, no face palsy, no dysarthria Psychiatric: A+Ox3, euthymic affect Results & Data Results & Data ([facility]) Vital Signs (Past 12 Hours) Vital Signs Temp Pulse Pulse Resp BP BP Pulse Ox 02/22/22 23:00 87 23 124/84 99 02/22/22 21:30 84 21 98 02/22/22 22:17 94 H 20 143/86 H 100 02/22/22 21:01 36.7 C 83 20 131/76 99 O2 Del Method 02/22/22 23:00 Room Air 02/22/22 21:30 Room Air 02/22/22 22:17 Room Air 02/22/22 21:01 Room Air Laboratory Results Short CBC 02/22/22 Range/Units 21:15 WBC 5.81 (4.8-10.8) K/ul Hgb 14.8 (14.0-18.0) g/dl Hct 39.5 L (40.1-51.0) % Plt Count 79 L (130-400) K/uL BMP 02/22/22 21:15 Sodium 135 L Potassium 3.2 L Chloride 92 L Carbon Dioxide 24 BUN 6 Creatinine 0.60 Glucose 145 H Calcium 9.6 Liver Function 02/22/22 Range/Units 21:15 Total Bilirubin 2.0 H (0.2-1.0) mg/dl AST 262 H (13-39) U/L ALT 107 H (7-52) U/L Alkaline Phosphatase 244 H (34-104) U/L Albumin 4.4 (3.4-5.0) gm/dl Medications Administered Current Inpatient Medications Folic Acid (Folic Acid 1 Mg Tab) 1 mg PO QAM MEMO Stop: 03/25/22 08:59 Gabapentin (Gabapentin 600 Mg Tab) 600 mg PO Q6H MEMO Stop: 02/23/22 12:16 Gabapentin (Gabapentin 600 Mg Tab) 600 mg PO Q8H MEMO Stop: 02/24/22 12:16 Gabapentin (Gabapentin 600 Mg Tab) 600 mg PO Q12H MEMO Stop: 02/25/22 12:16 Gabapentin (Gabapentin 600 Mg Tab) 600 mg PO Q24H MEMO Stop: 02/26/22 12:16 Heparin Sodium (Porcine) (Heparin Sod 5,000 Unit/0.5 Ml Vial) 5,000 units SQ Q8 MEMO Stop: 03/25/22 05:59 Magnesium Sulfate/Dextrose (Magnesium Sulfate / D5w) 1 gm in 100 mls @ 100 mls/hr IV Q1H MEMO Stop: 02/23/22 00:26 Last Admin: 02/22/22 23:35 Dose: 100 mls/hr Potassium Acetate 60 meq/Magnesium Sulfate 2 gm/ Sodium Chloride 1,034 mls @ 125 mls/hr IV .Q8H17M MEMO Stop: 03/24/22 23:44 Ondansetron HCl (Ondansetron Inj 2 Mg/Ml 2 Ml Vial) 4 mg IV Q6H PRN PRN Reason: Nausea Stop: 02/25/22 23:55 Thiamine HCl (Thiamine Hcl 100 Mg Tab) 100 mg PO QAM MEMO Stop: 03/25/22 08:59 Code Status & VTE Plan Code Status Full Code VTE Prophylaxis Plan VTE Prophylaxis will be ordered: Yes (1) Alcohol withdrawal Complication of substance-induced condition: with unspecified complication Qualified Code(s): F10.939 - Alcohol use, unspecified with withdrawal, unspecified (2) Nausea & vomiting Vomiting type: unspecified Qualified Code(s): R11.2 - Nausea with vomiting, unspecified
[2022-02-23 01:05] LABS: INR 1.1 (0.9-1.1); Prothrombin Time 11.3 Seconds (9.0-12.0)
[2022-02-23] MEDS: GABAPENTIN 600 MG TAB PO SCH ×2 (05:54→13:57)
[2022-02-23] MEDS ORDERED: HEPARIN SOD 5,000 UNIT/0.5 ML VIAL SQ SCH (06:00)
[2022-02-23 06:33] LABS: Alanine Aminotransferase 97 U/L (7-52); Albumin Globulin Ratio 1.5 (0.9-2); Albumin Level 3.7 gm/dl (3.4-5.0); Alkaline Phosphatase 220 U/L (34-104); Anion Gap 9 (3-11); Aspartate Aminotransferase 283 U/L (13-39); BUN Creatinine Ratio 7.4 (10-20); Bilirubin,Total 1.7 mg/dl (0.2-1.0); Blood Urea Nitrogen 4 mg/dl (6-23); Calcium 8.6 mg/dl (8.5-10.1); Carbon Dioxide 28 mmol/L (21-32); Chloride 100 mmol/L (98-107); Creatinine Clr Calc Pharmacy 155.3 ml/min; Est GFR (African American) > 150.0 ml/min; Est GFR (Non-African American) 132.3 ml/min; Globulin 2.5 gm/dl (2.5-4.0); Glucose 67 mg/dl (70-99(Fasting)); Magnesium 2.4 mg/dl (1.7-2.4); Potassium 3.7 mmol/L (3.5-5.1); Sodium 137 mmol/L (136-145); Total Protein 6.2 gm/dl (6.0-8.3)
[2022-02-23] MEDS ORDERED: FOLIC ACID 1 MG TAB PO SCH (09:00)
[2022-02-23] MEDS ORDERED: NICOTINE 21 MG/24 HR TDSY TD SCH (09:00)
[2022-02-23] MEDS ORDERED: THIAMINE HCL 100 MG TAB PO SCH (09:00)
--- NOTE | 2022-02-23 10:11 | Ultrasound Report ---
US liver CLINICAL HISTORY: Transaminitis. COMPARISON STUDY: Right upper quadrant ultrasound September 12, 2021. MRCP September 13, 2021. FINDINGS: Hepatic echogenicity is increased. No hepatic lesions are identified. No biliary ductal dil atation. The common bile duct measures 4 mm in caliber. No gallstones are noted. There is no sonograp hic Chao sign. Pancreatic body is normal. Head and tail are obscured. No right hydronephrosis. IMPRESSION: 1. Hepatic steatosis. 2. No gallstones or biliary ductal dilatation. ACT 112: Negative or not required by law. Electronically signed by: Octavio Montes M.D. 02/23/2022 10:09 AM
--- NOTE | 2022-02-23 13:12 | Hospitalist Progress Note ---
Date of Service February 23, 2022 Assessment & Plan (1) Alcohol withdrawal: Plan: Drinks on daily basis Denies any prior hospitalization for alcohol use Currently not interested in rehab placement On gabapentin protocol Continue thiamine, folic acid Counseled to quit drinking Prefers to leave AMA despite explaining the risks and complications. He understands his condition and risks involved of leaving without completing his treatment (2) Nausea & vomiting: Plan: likely due to above Resolved Tolerating diet (3) Thrombocytopenia: Plan: Likely due to Alcohol use no signs of bleeding monitor (4) Transaminitis: Plan: Chronic from alcohol use disorder Liver USD:Hepatic steatosis. No gallstones or biliary ductal dilatation. Monitor LFTs Avoid hepatotoxic agents as able Follow-up with GI as outpatient (5) Hyponatremia: Plan: Secondary to Chronic alcohol use Sodium levels improved to 137 after IV fluids Monitor Hypokalemia Hypomagnesemia Replace electrolytes as needed (6) Hypomagnesemia: Plan: As above (7) Tobacco use disorder: Plan: 1ppd for 20 years smoking cessation advised (8) Hypokalemia: Plan: as above Plan DVT Px: SQ heparin Code Status: Full Code Disposition AMA Admission and Anticipated Discharge Date Admission Date: February 22, 2022 Subjective Patient is seen and examined at bedside Nausea, vomiting resolved Tolerating diet Offers no new complaints Currently not interested in alcohol rehab placement Plans to leave AMA despite explaining the risks and complications Review of Systems Review of Systems: All systems reviewed & are unremarkable except as noted in Subjective Physical Exam Physical Exam: Physical Exam: Vitals signs as noted above General Appearance:Thin, no apparent distress Head: normocephalic, Atraumatic Eyes: normal inspection, EOMI Neck: supple, Trachea midline Respiratory/Chest: Decreased breath sounds, + B/L rhonchi, No accessory muscle use Cardiovascular: S1, S2, No murmur Abdomen/GI:Soft, Non tender, Bowel sounds present Extremities/Musculoskeletal:normal inspection, no edema Neurologic/Psych:AAOX3, grossly no focal neurological deficits Skin: normal color, warm, +Multiple Tattoos Results & Data Results & Data ([facility]) Vital Signs (Past 12 Hours) Vital Signs Temp Pulse Pulse Resp BP BP BP 02/23/22 11:45 36.6 C 65 18 144/85 H 02/23/22 07:51 36.5 C 68 18 152/76 H 02/23/22 07:24 57 L 02/23/22 02:30 84 02/23/22 03:25 36.7 C 79 18 152/87 H 02/23/22 02:41 36.7 C 94 H 18 156/98 H 02/23/22 02:08 36.7 C 94 H 18 156/98 H 02/23/22 01:03 85 18 125/85 02/23/22 01:19 Pulse Ox O2 Del Method 02/23/22 11:45 96 Room Air 02/23/22 07:51 95 02/23/22 07:24 02/23/22 02:30 02/23/22 03:25 98 Room Air 02/23/22 02:41 95 Room Air 02/23/22 02:08 95 Room Air 02/23/22 01:03 98 Room Air 02/23/22 01:19 99 Room Air Laboratory Results Short CBC 02/22/22 Range/Units 21:15 WBC 5.81 (4.8-10.8) K/ul Hgb 14.8 (14.0-18.0) g/dl Hct 39.5 L (40.1-51.0) % Plt Count 79 L (130-400) K/uL BMP 02/22/22 02/23/22 21:15 05:42 Sodium 135 L 137 Potassium 3.2 L 3.7 Chloride 92 L 100 Carbon Dioxide 24 28 BUN 6 4 L Creatinine 0.60 0.54 L Glucose 145 H 67 L Calcium 9.6 8.6 Liver Function 02/22/22 02/23/22 Range/Units 21:15 05:42 Total Bilirubin 2.0 H 1.7 H (0.2-1.0) mg/dl AST 262 H 283 H (13-39) U/L ALT 107 H 97 H (7-52) U/L Alkaline Phosphatase 244 H 220 H (34-104) U/L Albumin 4.4 3.7 (3.4-5.0) gm/dl (1) Alcohol withdrawal Complication of substance-induced condition: with unspecified complication Qualified Code(s): F10.939 - Alcohol use, unspecified with withdrawal, unspecified (2) Nausea & vomiting Vomiting type: unspecified Qualified Code(s): R11.2 - Nausea with vomiting, unspecified
--- NOTE | 2022-02-23 14:02 | Discharge Summary ---
Date of Service February 23, 2022 Admission HPI Per Admitting Provider The patient is a 37 year old man with pmh alochol use disorder, elevated LFTs who presented with one day of alcohol withdrawal symptoms. He reports that he drank about 12 beers the day prior to presentation. Then today, he was not feeling well and tried to drink to improve his symptoms but was not able to keep it down and because nauseous and had episodes of nonbloody, nonbilious vomiting. He reports typically drinking about 6 beers daily. He also reports having "the shakes" and feeling anxious and nauseous throughout the day. Prior to his symptoms today, he was feeling in his normal state of health. He denied any recent fevers but has felt chills today. He denies change in chronic cough, chest pain, shortness of breath, dysuria, abdominal pain, diarrhea, rash, leg swelling, increase in abdominal girth. He did have some light headedness and felt like he was going to pass out but never had episode of LOC. He was not able to eat anything all day. He reports having had alcohol withdrawal symptoms in the past but feels this is worse. He denies ever having a seizure from alcohol withdrawal. His last sober prior was about 1 month ago for about 1 week. He has smoked 1ppd cigarettes for about 20 years. Denies any other drug use. In the ED, vitals were significant for HR 94, BP wnl. Labs were significant for PLT 79 (around recent baseline but were >150 in 06/2021), Na 135, K 3.2, Cl 92, AG 19, Mg 1.1, tbili 2.0, AST 262, ALT 107, ALP 244, ETOH <10. He was given Valium x2, IVF and admitted to medicine. Admission Exam Per Admitting Provider Physical Exam Constitutional: WD/WN, vitals as above Eyes: PERRL, conjunctivae normal, anicteric sclerae ENMT: external ear and nose normal, oropharynx normal Neck: trachea midline, no thyromegaly Respiratory: normal respiratory effort, lungs clear to auscultation Cardiovascular: RRR, no murmur, no edema Gastrointestinal (Abdomen): normal bowel sounds, soft, nontender, no hepatosplenomegaly Musculoskeletal: no cyanosis or clubbing, extremities motor strength 5/5 Skin: no rashes, warm and dry multiple tattoos on arms Neurologic: patellar DTR's 2+ bilat, sensation intact and PERRL, EOMI, accommodation nl, no face palsy, no dysarthria Psychiatric: A+Ox3, euthymic affect Principal Diagnosis Alcohol withdrawal Thrombocytopenia Hepatic steatosis Transaminitis Hyponatremia Hypokalemia Hypomagnesemia Discharge Data Allergies Allergy/AdvReac Type Severity Reaction Status Date / Time No Known Allergies Allergy Verified 02/22/22 23:42 Consultations 02/22/22 23:06 ED Decision to Admit Stat 02/23/22 07:31 Consult Behavioral Health Liaison Routine Ordered Studies 02/23/22 00:25 liver Routine Hospital Course (1) Alcohol withdrawal: Drinks on daily basis Denies any prior hospitalization for alcohol use Currently not interested in rehab placement On gabapentin protocol Continue thiamine, folic acid Counseled to quit drinking Prefers to leave AMA despite explaining the risks and complications. He understands his condition and risks involved of leaving without completing his treatment (2) Nausea & vomiting: likely due to above Resolved Tolerating diet (3) Thrombocytopenia: Likely due to Alcohol use no signs of bleeding monitor (4) Transaminitis: Chronic from alcohol use disorder Liver USD:Hepatic steatosis. No gallstones or biliary ductal dilatation. Monitor LFTs Avoid hepatotoxic agents as able Follow-up with GI as outpatient (5) Hyponatremia: Secondary to Chronic alcohol use Sodium levels improved to 137 after IV fluids Monitor Hypokalemia Hypomagnesemia Replace electrolytes as needed (6) Hypomagnesemia: As above (7) Tobacco use disorder: 1ppd for 20 years smoking cessation advised (8) Hypokalemia: as above Plan DVT Px: SQ heparin Code Status: Full Code Disposition AMA Total Time Total Time Spent Total Time Spent (In Minutes): 40 minutes Discharge Plan Discharge Items Patient Disposition: Against Medical Advice Reason For Visit: ALCOHOL WITHDRAWAL Activity: Per Instructions section Non-emergency contact: Primary Care Provider Follow-up/Referrals: PCP,NO [Primary Care Provider] - Pending Studies at Discharge: No Stand-Alone Forms: [employer], Smoking Cessation Medications and DC Order Prescriptions: New gabapentin 600 mg Tablet 600 mg PO Q24H Qty: 4 0RF thiamine HCl (vitamin B1) 100 mg Tablet 100 mg PO QAM Qty: 30 0RF folic acid 1 mg Tablet 1 mg PO QAM Qty: 30 0RF Continued multivitamin Tablet 1 tab PO DAILY cyanocobalamin (vitamin B-12) [Vitamin B-12] 500 mcg Tablet 0 mcg PO DAILY naproxen sodium [Aleve] 220 mg Tablet 220 mg PO BID PRN (Reason: Pain) magnesium 250 mg Tablet 0 mg PO DAILY loratadine [Claritin] 10 mg Tablet 10 mg PO DAILY PRN (Reason: allergies) Discharge Orders: Left Against Medical Advice (Routine); Ordered 02/23/22 Ordered By: Satya Bray Admission Data Admit Date/Time: 02/22/22 23:57 Attending Provider: Satya Bray Admit Provider: Deangelo Colón Primary Care Provider: PCP,NO Other Providers: Deangelo Colón
--- NOTE | 2022-02-23 17:48 | Electrocardiogram Report ---
Test Reason : Blood Pressure : / mmHG Vent. Rate : 059 BPM Atrial Rate : 059 BPM P-R Int : 114 ms QRS Dur : 114 ms QT Int : 450 ms P-R-T Axes : 048 040 055 degrees QTc Int : 445 ms Sinus bradycardia with Premature atrial complexes Incomplete right bundle branch block Borderline ECG When compared with ECG of 17-JUL-2021 18:28, Premature atrial complexes are now Present Confirmed by Ki Marks ([id number]) on 02/23/2022 5:48:08 PM Referred By: REFERRED SELF Confirmed By:Kannan Marks
[2022-02-23] MEDS ORDERED: GABAPENTIN 600 MG TAB PO SCH (20:15)
[2022-02-25] MEDS ORDERED: GABAPENTIN 600 MG TAB PO SCH (00:15)
[2022-02-26] MEDS ORDERED: GABAPENTIN 600 MG TAB PO SCH (12:15)
== END 2022-02-23 14:08 | disposition left against medical advice (07) | DRG 894 ==
LOC: ED 20:43 → 2N 23:57

== ENCOUNTER 2022-07-14 23:17 | Inpatient (IN) ==
[2022-07-14] MEDS ORDERED: LORazepam 2 MG/1 ML VIAL IV STA (23:34)
[2022-07-14] MEDS ORDERED: MULTI-VITAMIN INFUSION 10 ML, THIAMINE HCL 100 MG, FOLIC ACID 1 MG in SODIUM CHLORIDE 0... IV ONE (23:37)
[2022-07-14] MEDS ORDERED: SODIUM CHLORIDE 0.9% 1000ML 1,000 ML IV SCH (23:45)
[2022-07-15 00:03] LABS: iSTAT Blood Urea Nitrogen < 3 mg/dl (7-18); iSTAT Carbon Dioxide 21 mmol/L (24-31); iSTAT Chloride 80 mmol/L (101-112); iSTAT Creatinine 0.9 mg/dl (0.6-1.3); iSTAT Glucose 105 mg/dl (70-99); iSTAT Hematocrit 46 % (42-52); iSTAT Hemoglobin 15.6 g/dl (14.0-18.0); iSTAT Ionized Calcium 0.93 mmol/l (1.12-1.32); iSTAT Potassium 3.7 mmol/L (3.3-5.0); iSTAT Sodium 116 mmol/L (135-144)
[2022-07-15 00:09] LABS: INR 1.2 (0.9-1.1); Partial Thromboplastin Ratio 1.2
[2022-07-15 00:24] LABS: Hematocrit (blood only) 34.5 % (42.0-52.0); Hemoglobin 12.9 g/dl (14.0-18.0); Mean Corpuscular Hemoglobin 35.8 pg (25.0-34.0); Mean Corpuscular Hgb Conc 37.4 g/dL (32.0-36.0); Mean Corpuscular Volume 95.8 fL (80.0-100.0); Mean Platelet Volume 11.8 fL (9.4-12.4); Platelet Count 41 K/uL (130-400); RDW Coefficient of Variation 12.3 % (11.5-14.5); RDW Standard Deviation 43.3 fL (36.4-46.3); White Blood Count 6.32 K/ul (4.8-10.8)
--- NOTE | 2022-07-15 00:47 | Emergency Department Note ---
History of Present Illness General Chief complaint: Seizure Stated complaint: SEIZURE Time Seen by Provider: 07/14/22 23:29 History of Present Illness This 37-year-old alcoholic presents to the ER with his friend for seizure and altered mental status. Patient states he drank just prior to arrival. He was sent home from work as he was yellow and did not look well. Patient states he feels somewhat confused but has no localized complaints. Patient denies chest pain, abdominal pain, fevers, flulike illness. No fall or trauma. The friend brings him in and states he had a seizure in the car and was postictal when he was brought to triage. Home Medications Medication Instructions Recorded Confirmed Type naproxen sodium 220 mg tablet 220 mg PO BID PRN Pain 02/22/22 07/14/22 History (Aleve) Allergies Allergy/AdvReac Type Severity Reaction Status Date / Time No Known Allergies Allergy Verified 07/14/22 23:43 Past Med/Surg History Medical History Alcohol use Alcohol withdrawal CHI (closed head injury) Chronic hyponatremia Hepatitis Thrombocytopenia Tobacco use Surgical History No pertinent past surgical history Family History Other Multiple myeloma Social History Smoking Status: Current every day smoker Tobacco Type: Cigarettes Cigarettes Per Day: pack a day; Second Hand Exposure: Yes; Hx Alcohol Use: Yes Alcohol type: beer Hx Substance Use: No Preferred Language: Moldovan Communication Ability: Effective Hearing Ability: Normal Cnc Supervisor Required: No Beliefs That Will Affect Care: None marital status: Single Current Living Situation: Alone current occupational status: employed Feels Safe at Home: Yes Assistive Devices: None Review of Systems A total of 10 systems reviewed and were otherwise negative Physical Exam Vital Signs Vital Signs - 24 hr 07/14/22 23:18 07/15/22 00:37 07/15/22 01:00 Temperature 36.5 C Temperature Source Temporal Artery Scan Pulse Rate 97 H 79 Pulse Rate [Apical] 70 Respiratory Rate 16 18 19 Respiratory Effort / Characteristics Non-Labored Spontaneous Non-Labored Spontaneous Respiratory Depth Normal Normal Respiratory Pattern Regular Blood Pressure 134/86 105/71 Blood Pressure [Right Arm] 115/73 Blood Pressure Mean 102 82 Blood Pressure Mean [Right Arm] 87 Blood Pressure Position Sitting Pulse Oximetry 98 99 96 Oxygen Delivery Method Room Air Room Air Room Air Sepsis Recent Fever Within 48 Hours No Sepsis New/Unexplained Change in Mental Status N/A Sepsis Action Taken by Nursing No Action Required VITALS: Vitals are noted on the nurse's note and reviewed by myself. Vital s igns stable. GENERAL: White male jaundice slow to answer questions with EtOH odor, tremulous appearing SKIN: The skin was without rashes, erythema, edema, or bruising. There is no tenting of the skin. Capillary reflex less than 2 seconds. HEAD: Normocephalic atraumatic. EARS: External auditory canals clear, tympanic membranes pearly rosenthal without erythema or effusion bilaterally. EYES: Pupils equal round and reactive to light and accommodation. Conjunctivae without injection, sclerae with icterus. Extraocular movements intact. NOSE: Patent, turbinates without inflammation or discharge. MOUTH: Mucous membranes moist. Pharynx without erythema or exudate. Uvula midline. Airway patent. Tongue does not deviate. NECK: Supple without nuchal rigidity. No lymphadenopathy. No thyromegaly. Cervical spine is nontender. No JVD. HEART: Regular rate and rhythm LUNGS: Clear to auscultation bilaterally without wheezes, rales or rhonchi. No retractions or accessory muscle use. ABDOMEN: Positive bowel sounds x 4. Normal tympanic percussion. Soft, nontender, without masses or organomegaly. Chao sign negative. No guarding or rebound tenderness. No CVA tenderness MUSCULOSKELETAL: No muscle atrophy, erythema, or edema noted. NEURO: Patient was alert and oriented to person place and time. Normal sensation to light and sharp touch. No focal neurological deficits. Course Administered Medications Potassium Chloride (K Neville / Wtr) 10 meq in 100 mls @ 100 mls/hr IV Q1H MEMO; Protocol Stop: 07/15/22 03:14 Last Admin: 07/15/22 01:53 Dose: 100 mls/hr Documented By: WILLIE Potassium Phosphate 30 mmol/ (Sodium Chloride) 510 mls @ 100 mls/hr IV ONE ONE Stop: 07/15/22 06:20 Last Admin: 07/15/22 01:53 Dose: 100 mls/hr Documented By: WILLIE Discontinued Medications Sodium Chloride (Nss 1000ml) 1,000 mls @ 999 mls/hr IV .Q1H1M [facility] Stop: 07/15/22 00:45 Last Infusion: 07/15/22 01:09 Dose: 0 mls/hr Documented By: Admin: 07/15/22 00:08 Dose: 999 mls/hr Documented By: WILLIE Multivitamins 10 ml/ Thiamine HCl 100 mg/ Folic Acid 1 mg/Sodium Chloride 1,011.2 mls @ 1,011.2 mls/hr IV .Q1H ONE Stop: 07/15/22 00:36 Last Infusion: 07/15/22 01:34 Dose: 0 mls/hr Documented By: Admin: 07/15/22 00:34 Dose: 1,011.2 mls/hr Documented By: WILLIE Magnesium Sulfate/Dextrose (Magnesium Sulfate / D5w) 1 gm in 100 mls @ 200 mls/hr IV Q30M [facility] Stop: 07/15/22 02:01 Last Admin: 07/15/22 02:36 Dose: 200 mls/hr Documented By: Infusion: 07/15/22 02:28 Dose: 200 mls/hr Documented By: Admin: 07/15/22 01:58 Dose: 200 mls/hr Documented By: WILLIE Ioversol (Optiray 350 100ml) 100 ml IV ONCE ONE Stop: 07/15/22 01:51 Last Admin: 07/15/22 01:51 Dose: 84 ml Documented By: DESI Lorazepam (Lorazepam 2 Mg/1 Ml Vial) 1 mg IV NOW STA Stop: 07/14/22 23:35 Last Admin: 07/15/22 00:07 Dose: 1 mg Documented By: WILLIE Potassium Phosphate (Potassium Phos 3 Mmol/1 Ml Infusion) 30 mmol IV NOW STA Stop: 07/15/22 01:05 Last Admin: 07/15/22 01:46 Dose: Not Given Documented By: WILLIE Medical Decision Making Medical Records Attestation: I reviewed the patient's medical records. Home Medications Current Medication List: was personally reviewed by me Laboratory Data Attestation: I reviewed the patient's lab results. 07/14/22 23:37 07/14/22 23:37 Lab Results 07/14/22 07/14/22 07/14/22 Range/Units 23:37 23:37 23:37 WBC 6.32 (4.8-10.8) K/ul RBC 3.60 L (4.70-6.10) M/uL Hgb 12.9 L (14.0-18.0) g/dl POC Hgb (14.0-18.0) g/dl Hct 34.5 L (42.0-52.0) % POC Hct (42-52) % MCV 95.8 (80.0-100.0) fL MCH 35.8 H (25.0-34.0) pg MCHC 37.4 H (32.0-36.0) g/dL RDW Std Deviation 43.3 (36.4-46.3) fL RDW Coeff of Randall 12.3 (11.5-14.5) % Plt Count 41 L (130-400) K/uL MPV 11.8 (9.4-12.4) fL Immature Gran % (Auto) 0.5 % Neut % (Auto) 58.4 % Lymph % (Auto) 30.9 % [place] % (Auto) 7.8 % Eos % (Auto) 2.1 % Baso % (Auto) 0.3 % Neut # (Auto) 3.70 (1.40-6.50) K/uL Lymph # (Auto) 1.95 (1.2-3.4) K/uL [place] # (Auto) 0.49 (0.11-0.59) K/uL Eos # (Auto) 0.13 (0-0.50) K/uL Baso # (Auto) 0.02 (0-0.2) K/uL Immature Gran # (Auto) 0.03 (0.01-0.20) K/uL Polychromasia 2+ Pappenheimer Bodies 3+ Target Cells 1+ Tear Drop Cells 1+ PT (9.0-12.0) Seconds INR (0.9-1.1) APTT (21.0-31.0) Seconds PTT Ratio POC Sodium (135-144) mmol/L Sodium 115 L* (136-145) mmol/L POC Potassium (3.3-5.0) mmol/L Potassium 2.9 L (3.5-5.1) mmol/L POC Chloride (101-112) mmol/L Chloride 77 L (98-107) mmol/L Carbon Dioxide 16 L (21-32) mmol/L POC Total CO2 (24-31) mmol/L Anion Gap 22 H (3-11) POC Anion Gap (16-25) mmol/L POC BUN (7-18) mg/dl BUN 3 L (6-23) mg/dl Creatinine 0.78 (0.6-1.4) mg/dl POC Creatinine (0.6-1.3) mg/dl Est Cr Clr Drug Dosing 117.6 ml/min Est GFR ( Amer) 131.8 ml/min Est GFR (Non-Af Amer) 113.7 ml/min BUN/Creatinine Ratio 3.8 L (10-20) Glucose 111 H (70-99(Fasting)) mg/dl POC Glucose (other) (70-99) mg/dl Osmolality (280-300) mOsm/kg Lactate Calcium 8.1 L (8.5-10.1) mg/dl POC Ioniz Calcium Hector (1.12-1.32) mmol/l Phosphorus 1.8 L (2.5-4.9) mg/dl Magnesium 1.5 L (1.7-2.4) mg/dl Total Bilirubin 13.6 H (0.2-1.0) mg/dl AST 183 H (13-39) U/L ALT 115 H (7-52) U/L Alkaline Phosphatase 967 H (34-104) U/L Ammonia (18-72) umol/L Total Creatine Kinase 387 H (30-223) U/L Total Protein 6.0 (6.0-8.3) gm/dl Albumin 3.3 L (3.4-5.0) gm/dl Globulin 2.7 (2.5-4.0) gm/dl Albumin/Globulin Ratio 1.2 (0.9-2) TSH (0.300-4.500) uIu/ml Urine Color Urine Appearance (Clear) Urine pH (4.5-7.5) Ur Specific [place] (1.000-1.030) Urine Protein (Negative) Urine Glucose (UA) (Negative) Urine Ketones (Negative) Urine Blood (Negative) Urine Nitrite (Negative) Urine Bilirubin (Negative) Urine Urobilinogen (Negative) Ur Leukocyte Esterase (Negative) Urine Osmolality (500-800) mOsm/kg Ur Random Sodium mmol/L Urine Opiates Screen (Neg) Ur Methadone, Qual (Neg) Urine Barbiturates (Neg) Ur Phencyclidine (PCP) (Neg) U Amphetamin/Meth Scrn (Neg) MDMA (Ecstasy) Screen (Neg) U Benzodiazepines Scrn (Neg) Ur Cocaine Metabolite (Neg) U Marijuana (THC) Screen (Neg) Ethyl Alcohol mg/dL 57.5 H (<10.0) mg/dl SARS-CoV-2, RNA, NAAT (NEGATIVE) 07/14/22 07/14/22 07/14/22 Range/Units 23:37 23:40 23:50 WBC (4.8-10.8) K/ul RBC (4.70-6.10) M/uL Hgb (14.0-18.0) g/dl POC Hgb 15.6 (14.0-18.0) g/dl Hct (42.0-52.0) % POC Hct 46 (42-52) % MCV (80.0-100.0) fL MCH (25.0-34.0) pg MCHC (32.0-36.0) g/dL RDW Std Deviation (36.4-46.3) fL RDW Coeff of Randall (11.5-14.5) % Plt Count (130-400) K/uL MPV (9.4-12.4) fL Immature Gran % (Auto) % Neut % (Auto) % Lymph % (Auto) % [place] % (Auto) % Eos % (Auto) % Baso % (Auto) % Neut # (Auto) (1.40-6.50) K/uL Lymph # (Auto) (1.2-3.4) K/uL [place] # (Auto) (0.11-0.59) K/uL Eos # (Auto) (0-0.50) K/uL Baso # (Auto) (0-0.2) K/uL Immature Gran # (Auto) (0.01-0.20) K/uL Polychromasia Pappenheimer Bodies Target Cells Tear Drop Cells PT 13.0 H (9.0-12.0) Seconds INR 1.2 H (0.9-1.1) APTT 32.0 H (21.0-31.0) Seconds PTT Ratio 1.2 POC Sodium 116 L* (135-144) mmol/L Sodium (136-145) mmol/L POC Potassium 3.7 (3.3-5.0) mmol/L Potassium (3.5-5.1) mmol/L POC Chloride 80 L (101-112) mmol/L Chloride (98-107) mmol/L Carbon Dioxide (21-32) mmol/L POC Total CO2 21 L (24-31) mmol/L Anion Gap (3-11) POC Anion Gap 20.0 (16-25) mmol/L POC BUN < 3 L (7-18) mg/dl BUN (6-23) mg/dl Creatinine (0.6-1.4) mg/dl POC Creatinine 0.9 (0.6-1.3) mg/dl Est Cr Clr Drug Dosing ml/min Est GFR ( Amer) ml/min Est GFR (Non-Af Amer) ml/min BUN/Creatinine Ratio (10-20) Glucose (70-99(Fasting)) mg/dl POC Glucose (other) 105 H (70-99) mg/dl Osmolality (280-300) mOsm/kg Lactate TNP Calcium (8.5-10.1) mg/dl POC Ioniz Calcium Hector 0.93 L (1.12-1.32) mmol/l Phosphorus (2.5-4.9) mg/dl Magnesium (1.7-2.4) mg/dl Total Bilirubin (0.2-1.0) mg/dl AST (13-39) U/L ALT (7-52) U/L Alkaline Phosphatase (34-104) U/L Ammonia (18-72) umol/L Total Creatine Kinase (30-223) U/L Total Protein (6.0-8.3) gm/dl Albumin (3.4-5.0) gm/dl Globulin (2.5-4.0) gm/dl Albumin/Globulin Ratio (0.9-2) TSH (0.300-4.500) uIu/ml Urine Color Urine Appearance (Clear) Urine pH (4.5-7.5) Ur Specific [place] (1.000-1.030) Urine Protein (Negative) Urine Glucose (UA) (Negative) Urine Ketones (Negative) Urine Blood (Negative) Urine Nitrite (Negative) Urine Bilirubin (Negative) Urine Urobilinogen (Negative) Ur Leukocyte Esterase (Negative) Urine Osmolality (500-800) mOsm/kg Ur Random Sodium mmol/L Urine Opiates Screen (Neg) Ur Methadone, Qual (Neg) Urine Barbiturates (Neg) Ur Phencyclidine (PCP) (Neg) U Amphetamin/Meth Scrn (Neg) MDMA (Ecstasy) Screen (Neg) U Benzodiazepines Scrn (Neg) Ur Cocaine Metabolite (Neg) U Marijuana (THC) Screen (Neg) Ethyl Alcohol mg/dL (<10.0) mg/dl SARS-CoV-2, RNA, NAAT (NEGATIVE) 07/14/22 07/15/22 07/15/22 Range/Units 23:57 00:00 01:15 WBC (4.8-10.8) K/ul RBC (4.70-6.10) M/uL Hgb (14.0-18.0) g/dl POC Hgb (14.0-18.0) g/dl Hct (42.0-52.0) % POC Hct (42-52) % MCV (80.0-100.0) fL MCH (25.0-34.0) pg MCHC (32.0-36.0) g/dL RDW Std Deviation (36.4-46.3) fL RDW Coeff of Randall (11.5-14.5) % Plt Count (130-400) K/uL MPV (9.4-12.4) fL Immature Gran % (Auto) % Neut % (Auto) % Lymph % (Auto) % [place] % (Auto) % Eos % (Auto) % Baso % (Auto) % Neut # (Auto) (1.40-6.50) K/uL Lymph # (Auto) (1.2-3.4) K/uL [place] # (Auto) (0.11-0.59) K/uL Eos # (Auto) (0-0.50) K/uL Baso # (Auto) (0-0.2) K/uL Immature Gran # (Auto) (0.01-0.20) K/uL Polychromasia Pappenheimer Bodies Target Cells Tear Drop Cells PT (9.0-12.0) Seconds INR (0.9-1.1) APTT (21.0-31.0) Seconds PTT Ratio POC Sodium (135-144) mmol/L Sodium (136-145) mmol/L POC Potassium (3.3-5.0) mmol/L Potassium (3.5-5.1) mmol/L POC Chloride (101-112) mmol/L Chloride (98-107) mmol/L Carbon Dioxide (21-32) mmol/L POC Total CO2 (24-31) mmol/L Anion Gap (3-11) POC Anion Gap (16-25) mmol/L POC BUN (7-18) mg/dl BUN (6-23) mg/dl Creatinine (0.6-1.4) mg/dl POC Creatinine (0.6-1.3) mg/dl Est Cr Clr Drug Dosing ml/min Est GFR ( Amer) ml/min Est GFR (Non-Af Amer) ml/min BUN/Creatinine Ratio (10-20) Glucose (70-99(Fasting)) mg/dl POC Glucose (other) (70-99) mg/dl Osmolality 256 L (280-300) mOsm/kg Lactate Calcium (8.5-10.1) mg/dl POC Ioniz Calcium Hector (1.12-1.32) mmol/l Phosphorus (2.5-4.9) mg/dl Magnesium (1.7-2.4) mg/dl Total Bilirubin (0.2-1.0) mg/dl AST (13-39) U/L ALT (7-52) U/L Alkaline Phosphatase (34-104) U/L Ammonia 43.0 (18-72) umol/L Total Creatine Kinase (30-223) U/L Total Protein (6.0-8.3) gm/dl Albumin (3.4-5.0) gm/dl Globulin (2.5-4.0) gm/dl Albumin/Globulin Ratio (0.9-2) TSH (0.300-4.500) uIu/ml Urine Color Urine Appearance (Clear) Urine pH (4.5-7.5) Ur Specific [place] (1.000-1.030) Urine Protein (Negative) Urine Glucose (UA) (Negative) Urine Ketones (Negative) Urine Blood (Negative) Urine Nitrite (Negative) Urine Bilirubin (Negative) Urine Urobilinogen (Negative) Ur Leukocyte Esterase (Negative) Urine Osmolality (500-800) mOsm/kg Ur Random Sodium mmol/L Urine Opiates Screen (Neg) Ur Methadone, Qual (Neg) Urine Barbiturates (Neg) Ur Phencyclidine (PCP) (Neg) U Amphetamin/Meth Scrn (Neg) MDMA (Ecstasy) Screen (Neg) U Benzodiazepines Scrn (Neg) Ur Cocaine Metabolite (Neg) U Marijuana (THC) Screen (Neg) Ethyl Alcohol mg/dL (<10.0) mg/dl SARS-CoV-2, RNA, NAAT NEGATIVE (NEGATIVE) 07/15/22 07/15/22 07/15/22 Range/Units 01:25 01:33 01:33 WBC (4.8-10.8) K/ul RBC (4.70-6.10) M/uL Hgb (14.0-18.0) g/dl POC Hgb (14.0-18.0) g/dl Hct (42.0-52.0) % POC Hct (42-52) % MCV (80.0-100.0) fL MCH (25.0-34.0) pg MCHC (32.0-36.0) g/dL RDW Std Deviation (36.4-46.3) fL RDW Coeff of Randall (11.5-14.5) % Plt Count (130-400) K/uL MPV (9.4-12.4) fL Immature Gran % (Auto) % Neut % (Auto) % Lymph % (Auto) % [place] % (Auto) % Eos % (Auto) % Baso % (Auto) % Neut # (Auto) (1.40-6.50) K/uL Lymph # (Auto) (1.2-3.4) K/uL [place] # (Auto) (0.11-0.59) K/uL Eos # (Auto) (0-0.50) K/uL Baso # (Auto) (0-0.2) K/uL Immature Gran # (Auto) (0.01-0.20) K/uL Polychromasia Pappenheimer Bodies Target Cells Tear Drop Cells PT (9.0-12.0) Seconds INR (0.9-1.1) APTT (21.0-31.0) Seconds PTT Ratio POC Sodium (135-144) mmol/L Sodium (136-145) mmol/L POC Potassium (3.3-5.0) mmol/L Potassium (3.5-5.1) mmol/L POC Chloride (101-112) mmol/L Chloride (98-107) mmol/L Carbon Dioxide (21-32) mmol/L POC Total CO2 (24-31) mmol/L Anion Gap (3-11) POC Anion Gap (16-25) mmol/L POC BUN (7-18) mg/dl BUN (6-23) mg/dl Creatinine (0.6-1.4) mg/dl POC Creatinine (0.6-1.3) mg/dl Est Cr Clr Drug Dosing ml/min Est GFR ( Amer) ml/min Est GFR (Non-Af Amer) ml/min BUN/Creatinine Ratio (10-20) Glucose (70-99(Fasting)) mg/dl POC Glucose (other) (70-99) mg/dl Osmolality (280-300) mOsm/kg Lactate Calcium (8.5-10.1) mg/dl POC Ioniz Calcium Hector (1.12-1.32) mmol/l Phosphorus (2.5-4.9) mg/dl Magnesium (1.7-2.4) mg/dl Total Bilirubin (0.2-1.0) mg/dl AST (13-39) U/L ALT (7-52) U/L Alkaline Phosphatase (34-104) U/L Ammonia (18-72) umol/L Total Creatine Kinase (30-223) U/L Total Protein (6.0-8.3) gm/dl Albumin (3.4-5.0) gm/dl Globulin (2.5-4.0) gm/dl Albumin/Globulin Ratio (0.9-2) TSH 1.668 (0.300-4.500) uIu/ml Urine Color Dark Yellow Urine Appearance Clear (Clear) Urine pH 7.5 (4.5-7.5) Ur Specific [place] 1.005 (1.000-1.030) Urine Protein Negative (Negative) Urine Glucose (UA) Negative (Negative) Urine Ketones Negative (Negative) Urine Blood Negative (Negative) Urine Nitrite Negative (Negative) Urine Bilirubin 2+ H (Negative) Urine Urobilinogen Negative (Negative) Ur Leukocyte Esterase Negative (Negative) Urine Osmolality (500-800) mOsm/kg Ur Random Sodium mmol/L Urine Opiates Screen Neg (Neg) Ur Methadone, Qual Neg (Neg) Urine Barbiturates Neg (Neg) Ur Phencyclidine (PCP) Neg (Neg) U Amphetamin/Meth Scrn Neg (Neg) MDMA (Ecstasy) Screen Neg (Neg) U Benzodiazepines Scrn Neg (Neg) Ur Cocaine Metabolite Neg (Neg) U Marijuana (THC) Screen Neg (Neg) Ethyl Alcohol mg/dL (<10.0) mg/dl SARS-CoV-2, RNA, NAAT (NEGATIVE) 07/15/22 07/15/22 Range/Units 01:33 01:33 WBC (4.8-10.8) K/ul RBC (4.70-6.10) M/uL Hgb (14.0-18.0) g/dl POC Hgb (14.0-18.0) g/dl Hct (42.0-52.0) % POC Hct (42-52) % MCV (80.0-100.0) fL MCH (25.0-34.0) pg MCHC (32.0-36.0) g/dL RDW Std Deviation (36.4-46.3) fL RDW Coeff of Randall (11.5-14.5) % Plt Count (130-400) K/uL MPV (9.4-12.4) fL Immature Gran % (Auto) % Neut % (Auto) % Lymph % (Auto) % [place] % (Auto) % Eos % (Auto) % Baso % (Auto) % Neut # (Auto) (1.40-6.50) K/uL Lymph # (Auto) (1.2-3.4) K/uL [place] # (Auto) (0.11-0.59) K/uL Eos # (Auto) (0-0.50) K/uL Baso # (Auto) (0-0.2) K/uL Immature Gran # (Auto) (0.01-0.20) K/uL Polychromasia Pappenheimer Bodies Target Cells Tear Drop Cells PT (9.0-12.0) Seconds INR (0.9-1.1) APTT (21.0-31.0) Seconds PTT Ratio POC Sodium (135-144) mmol/L Sodium (136-145) mmol/L POC Potassium (3.3-5.0) mmol/L Potassium (3.5-5.1) mmol/L POC Chloride (101-112) mmol/L Chloride (98-107) mmol/L Carbon Dioxide (21-32) mmol/L POC Total CO2 (24-31) mmol/L Anion Gap (3-11) POC Anion Gap (16-25) mmol/L POC BUN (7-18) mg/dl BUN (6-23) mg/dl Creatinine (0.6-1.4) mg/dl POC Creatinine (0.6-1.3) mg/dl Est Cr Clr Drug Dosing ml/min Est GFR ( Amer) ml/min Est GFR (Non-Af Amer) ml/min BUN/Creatinine Ratio (10-20) Glucose (70-99(Fasting)) mg/dl POC Glucose (other) (70-99) mg/dl Osmolality (280-300) mOsm/kg Lactate Calcium (8.5-10.1) mg/dl POC Ioniz Calcium Hector (1.12-1.32) mmol/l Phosphorus (2.5-4.9) mg/dl Magnesium (1.7-2.4) mg/dl Total Bilirubin (0.2-1.0) mg/dl AST (13-39) U/L ALT (7-52) U/L Alkaline Phosphatase (34-104) U/L Ammonia (18-72) umol/L Total Creatine Kinase (30-223) U/L Total Protein (6.0-8.3) gm/dl Albumin (3.4-5.0) gm/dl Globulin (2.5-4.0) gm/dl Albumin/Globulin Ratio (0.9-2) TSH (0.300-4.500) uIu/ml Urine Color Urine Appearance (Clear) Urine pH (4.5-7.5) Ur Specific [place] (1.000-1.030) Urine Protein (Negative) Urine Glucose (UA) (Negative) Urine Ketones (Negative) Urine Blood (Negative) Urine Nitrite (Negative) Urine Bilirubin (Negative) Urine Urobilinogen (Negative) Ur Leukocyte Esterase (Negative) Urine Osmolality 124 L (500-800) mOsm/kg Ur Random Sodium 25 mmol/L Urine Opiates Screen (Neg) Ur Methadone, Qual (Neg) Urine Barbiturates (Neg) Ur Phencyclidine (PCP) (Neg) U Amphetamin/Meth Scrn (Neg) MDMA (Ecstasy) Screen (Neg) U Benzodiazepines Scrn (Neg) Ur Cocaine Metabolite (Neg) U Marijuana (THC) Screen (Neg) Ethyl Alcohol mg/dL (<10.0) mg/dl SARS-CoV-2, RNA, NAAT (NEGATIVE) Imaging Data Attestation: I personally reviewed and interpreted this imaging study as follows: MDM Narrative Prior records/ancillary studies reviewed and summarized above. Nursing notes reviewed. Additional history obtained from friend who gives additional history as patient was postictal when he arrived at triage. The patient's history was concerning for jaundice and an alcoholic who had a seizure in route to the hospital. Differential diagnosis: Etiologies such as alcoholic cirrhosis, encephalopathic, alcohol withdrawal seizures, metabolic, infection, hypo/hyperglycemia, electrolyte abnormalities, cardiac sources, intracerebral event, toxicologic, neurologic, as well as others were entertained. Physical examination: As above. ER treatment provided: IV Lock An order was placed for continuous cardiac monitoring. The monitor shows a rate of 60-100 with a sinus rhythm per my interpretation. IV fluids banana bag Ativan On reassessment the patient felt better. Diagnostics interpretation by me: ECG: Ordered for seizure and independently interpreted by myself EKG: Normal sinus, poor baseline, no acute ST-T wave changes, rate of 85. Impression normal sinus rhythm poor baseline interpreted by myself I think arrhythmia is unlikely. EKG shows normal sinus rhythm with no interval abnormalities such as QT prolongation or WPW. There are no findings to suggest Brugada syndrome. Cardiac monitoring in the emergency department reveals no tachycardic or bradycardic dysrhythmia. Hypertrophic cardiomyopathy was considered but there are no clear historical elements pointing toward this. EKG is not suggestive. The QRS voltage is not extremely large and there are no suggestive Q waves. Labs independently interpreted by myself: The labs revealed hyponatremic and osmolarity levels were ordered Thrombocytopenic. INR 1.2. Low phosphorus magnesium potassium and sodium. Imaging studies: CT ABDOMEN & PELVIS With Contrast: Extensive hypodensity throughout the liver concerning for steatohepatitis. Mildly distended gallbladder. No other acute findings in the abdomen or pelvis. Radiologist: Ramu Welch MD Chest x-ray with no acute consolidation, pneumothorax or free air per my interpretation. Consultation: A consultation was placed with the hospitalist. The case was discussed and diagnostics were reviewed. The patient was evaluated in the ER for further treatment. I consulted the pharmacist and discussed replacement options for the patient that he has multiple low electrolytes. Exam and history seem consistent with progression of liver disease with multiple low electrolytes with possible withdrawal seizure. Patient was medicated as above. Multiple different electrolytes were replaced. He was given banana bag. He was given Ativan and IV fluids. Imaging was reviewed and read by the radiologist and independently reviewed by myself. He is agreement to treatment plan of admission. He was reassessed multiple times. By the evaluation outlined above emergent etiologies such as infection, cardiac sources, intracerebral event, abnormalities blood glucose, as well as others were deemed relatively unlikely. The pt informed about the findings as listed above. All questions were answered and pleased with the treatment. The chart was completed utilizing [employer] Speech voice recognition software. Grammatical errors, random word insertions, pronoun errors, and incomplete sentences are an occassional consequence of this system due to software limitations, ambient noise, and hardware issues. Any formal questions or concerns about the content, text, or information contained within the body of this dictation should be directly addressed to the physician registered dental assistant rda for clarification. Impression & Plan Alcohol withdrawal seizure, Jaundice, Acute hyponatremia, Hypomagnesemia, Thrombocytopenia, Hypokalemia, Hypophosphatemia Discharge Plan Visit Data Chief Complaint: Seizure Stated Complaint: SEIZURE ED Provider: Robbi Delcid. ED Midlevel Provider: Dalila Welch Discharge Problem: Alcohol withdrawal seizure, Jaundice, Acute hyponatremia, Hypomagnesemia, Thrombocytopenia, Hypokalemia, Hypophosphatemia Patient Disposition: Admitted As Inpatient Condition: Fair Forms Stand Alone Forms: [employer]ed Prescriptions Prescriptions: No Action naproxen sodium [Aleve] 220 mg Tablet 220 mg PO BID PRN (Reason: Pain) Referrals Referrals: PCP,NO [Primary Care Provider] -
[2022-07-15 01:00] LABS: Basophils # (auto) 0.02 K/uL (0-0.2); Basophils % (auto) 0.3 %; Eosinophils # (auto) 0.13 K/uL (0-0.50); Eosinophils % (auto) 2.1 %; Immature Granulocytes # (auto) 0.03 K/uL (0.01-0.20); Immature Granulocytes % (auto) 0.5 %; Lymphocytes # (auto) 1.95 K/uL (1.2-3.4); Lymphocytes % (auto) 30.9 %; Monocytes # (auto) 0.49 K/uL (0.11-0.59); Monocytes % (auto) 7.8 %; Neutrophils % (auto) 58.4 %; Pappenheimer Bodies 3+; Polychromasia 2+; Target Cells 1+; Tear Drop Cells 1+
[2022-07-15 01:01] LABS: Albumin Globulin Ratio 1.2 (0.9-2); Albumin Level 3.3 gm/dl (3.4-5.0); BUN Creatinine Ratio 3.8 (10-20); Bilirubin,Total 13.6 mg/dl (0.2-1.0); Calcium 8.1 mg/dl (8.5-10.1); Creatinine Clr Calc Pharmacy 117.6 ml/min; Est GFR (African American) 131.8 ml/min; Est GFR (Non-African American) 113.7 ml/min; Globulin 2.7 gm/dl (2.5-4.0); Magnesium 1.5 mg/dl (1.7-2.4); Phosphorus 1.8 mg/dl (2.5-4.9); Potassium 2.9 mmol/L (3.5-5.1)
[2022-07-15] MEDS ORDERED: POTASSIUM PHOS 3 MMOL/1 ML INFUSION IV STA (01:04)
--- NOTE | 2022-07-15 01:10 | History & Physical Report ---
Date of Service July 15, 2022 Assessment & Plan (1) Alcohol withdrawal: Plan: Recurrent alcohol withdrawal seizures Threshold lowered by acute on chronic hyponatremia New onset stuttering ? Related to alcohol withdrawal seizures hx SAH, intracranial aneurysm, Anemia secondary to UGI B Heme positive melanotic stool noted on rectal exam at the ER Differentials include gastritis, PUD, tumor emphysema/R lung nodule as per records, baseline chronic wheezing without unusual SOB symptoms chronic thrombocytopenia likely secondary to alcoholic liver disease Multiple electrolyte abnormalities secondary to alcohol abuse Alcoholic hepatitis, good prognosis with Maddrey's DF score 20.5 points Hyperglycemia rule out DM Ongoing tobacco abuse PCU AWSS, DT precautions Seizure precautions Ativan as needed active seizures MRI brain, Neurology Re: Recurrent seizures, new onset stuttering Careful correction of sodium after initial fluid bolus given at the ER Hyponatremia work-up Nephrology consult if with worsening IV PPI GI consult Re: UGI B N.p.o. until patient seen by service in anticipation of endoscopy. Patient counseled to stop OTC NSAID intake given hyponatremia and UGI bleed. Anemia work-up Transfuse PRBC if hemoglobin less than 7 and or for symptomatic anemia Replace electrolytes Check hemoglobin A1c Outpatient formal CT chest study, pulmonary evaluation for pulmonary nodule Nicotine patch DVT prophylaxis. SCDs Re: GI bleed Full code Text document was generated using [employer] voice recognition software. It may contain grammatical or spelling errors. Kindly contact undersigned for clarification of any documentation item in question. History of Present Illness Chief Complaint: Involuntary jerks, stuttering Primary Care Provider: Dr. Albrecht History obtained from patient and records. Medical history significant for SAH, intracranial aneurysm, chronic hyponatremia, history alcohol withdrawal seizures, hepatic steatosis as per records, emphysema/R lung nodule as per records, ongoing alcohol/ tobacco abuse, chronic thrombocytopenia. [place] [facility] [place] for subarachnoid hemorrhage likely right MCA versus right posterior communicating aneurysmal distribution pattern. Patient transferred from [facility] ED after patient presented with generalized tonic- clonic seizures resulting in head trauma. CTA showed possible small right posterior communicating aneurysm, possible underlying ruptured aneurysm leading to SAH as per report. Negative angiogram by [facility] [place]. Patient refused MRI. Patient signed out AGAINST MEDICAL ADVICE. Patient started drinking again shortly after discharge from [facility]. Patient denies depression or suicidality. Admits to anger over child custody issues. Patient noted by friends/family to have yellow skin the last few days. No unusual belly pain. Admits to taking OTC NSAID for aches. Not aware of black or bloody stools. Patient noted to have involuntary jerks and stuttering at work yesterday. No headache or syncopal events. Patient denies chest pain, SOB. Possible seizure witnessed by a friend on route to the ER. 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 Allergies Allergy/AdvReac Type Severity Reaction Status Date / Time No Known Allergies Allergy Verified 07/14/22 23:43 Home Medications Medication Instructions Recorded Confirmed Type naproxen sodium 220 mg tablet 220 mg PO BID PRN Pain 02/22/22 07/14/22 History (Aleve) Past Med/Surg History Medical History Alcohol use Alcohol withdrawal CHI (closed head injury) Chronic hyponatremia Hepatitis Thrombocytopenia Tobacco use Surgical History No pertinent past surgical history Family History Other Multiple myeloma Social History Smoking Status: Current every day smoker Tobacco Type: Cigarettes Cigarettes Per Day: pack a day; Second Hand Exposure: Yes; Hx Alcohol Use: Yes Alcohol type: beer Hx Substance Use: No Preferred Language: Croatian Communication Ability: Effective Hearing Ability: Normal Drier Tender Required: No Beliefs That Will Affect Care: None marital status: Single Current Living Situation: Alone current occupational status: employed Feels Safe at Home: Yes Assistive Devices: None Review of Systems Review of Systems: As per HPI, all other systems reviewed and negative Physical Exam Physical Exam: GENERAL: Tremulous, chronically ill, no respiratory distress SKIN: jaundice, warm HEENT: Pale palpebral conjunctivae, no ptosis, dry buccal mucosa NECK : Supple, no tenderness CHEST : Decreased breath sounds, expiratory wheezes, no tenderness HEART : RRR, no obvious murmurs ABDOMEN: no distention, nontender RECTAL : Intact sphincter, black stool (FOBT positive) EXTREMITIES : No LE swelling/tenderness, no other conspicuous deformities noted NEUROLOGIC : coherent, no facial asymmetry, tremulous, no other gross focality Results & Data Results & Data ([facility]) Vital Signs (Past 12 Hours) Vital Signs Temp Pulse Pulse Resp BP BP Pulse Ox 07/15/22 00:37 70 18 115/73 99 07/14/22 23:18 36.5 C 97 H 16 134/86 98 O2 Del Method 07/15/22 00:37 Room Air 07/14/22 23:18 Room Air Laboratory Results Laboratory Results WBC 6.32 K/ul (4.8-10.8) 07/14/22 23:37 RBC 3.60 M/uL (4.70-6.10) L 07/14/22 23:37 Hgb 12.9 g/dl (14.0-18.0) L 07/14/22 23:37 POC Hgb 15.6 g/dl (14.0-18.0) 07/14/22 23:50 Hct 34.5 % (42.0-52.0) L 07/14/22 23:37 POC Hct 46 % (42-52) 07/14/22 23:50 MCV 95.8 fL (80.0-100.0) 07/14/22 23:37 MCH 35.8 pg (25.0-34.0) H 07/14/22 23:37 MCHC 37.4 g/dL (32.0-36.0) H 07/14/22 23:37 RDW Std Deviation 43.3 fL (36.4-46.3) 07/14/22 23:37 RDW Coeff of Randall 12.3 % (11.5-14.5) 07/14/22 23:37 Plt Count 41 K/uL (130-400) L 07/14/22 23:37 MPV 11.8 fL (9.4-12.4) 07/14/22 23:37 Immature Gran % (Auto) 0.5 % 07/14/22 23:37 Neut % (Auto) 58.4 % 07/14/22 23:37 Lymph % (Auto) 30.9 % 07/14/22 23:37 [place] % (Auto) 7.8 % 07/14/22 23:37 Eos % (Auto) 2.1 % 07/14/22 23:37 Baso % (Auto) 0.3 % 07/14/22 23:37 Neut # (Auto) 3.70 K/uL (1.40-6.50) 07/14/22 23:37 Lymph # (Auto) 1.95 K/uL (1.2-3.4) 07/14/22 23:37 [place] # (Auto) 0.49 K/uL (0.11-0.59) 07/14/22 23:37 Eos # (Auto) 0.13 K/uL (0-0.50) 07/14/22 23:37 Baso # (Auto) 0.02 K/uL (0-0.2) 07/14/22 23:37 Immature Gran # (Auto) 0.03 K/uL (0.01-0.20) 07/14/22 23:37 Polychromasia 2+ 07/14/22 23:37 Pappenheimer Bodies 3+ 07/14/22 23:37 Target Cells 1+ 07/14/22 23:37 Tear Drop Cells 1+ 07/14/22 23:37 PT 13.0 Seconds (9.0-12.0) H 07/14/22 23:37 INR 1.2 (0.9-1.1) H 07/14/22 23:37 APTT 32.0 Seconds (21.0-31.0) H 07/14/22 23:37 PTT Ratio 1.2 07/14/22 23:37 POC Sodium 116 mmol/L (135-144) L* 07/14/22 23:50 Sodium 115 mmol/L (136-145) L* 07/14/22 23:37 POC Potassium 3.7 mmol/L (3.3-5.0) 07/14/22 23:50 Potassium 2.9 mmol/L (3.5-5.1) L 07/14/22 23:37 POC Chloride 80 mmol/L (101-112) L 07/14/22 23:50 Chloride 77 mmol/L (98-107) L 07/14/22 23:37 Carbon Dioxide 16 mmol/L (21-32) L 07/14/22 23:37 POC Total CO2 21 mmol/L (24-31) L 07/14/22 23:50 Anion Gap 22 (3-11) H 07/14/22 23:37 POC Anion Gap 20.0 mmol/L (16-25) 07/14/22 23:50 POC BUN < 3 mg/dl (7-18) L 07/14/22 23:50 BUN 3 mg/dl (6-23) L 07/14/22 23:37 Creatinine 0.78 mg/dl (0.6-1.4) 07/14/22 23:37 POC Creatinine 0.9 mg/dl (0.6-1.3) 07/14/22 23:50 Est Cr Clr Drug Dosing 117.6 ml/min 07/14/22 23:37 Est GFR ( Amer) 131.8 ml/min 07/14/22 23:37 Est GFR (Non-Af Amer) 113.7 ml/min 07/14/22 23:37 BUN/Creatinine Ratio 3.8 (10-20) L 07/14/22 23:37 Glucose 111 mg/dl (70-99(Fasting)) H 07/14/22 23:37 POC Glucose (other) 105 mg/dl (70-99) H 07/14/22 23:50 Lactate TNP 07/14/22 23:40 Calcium 8.1 mg/dl (8.5-10.1) L 07/14/22 23:37 POC Ioniz Calcium Hector 0.93 mmol/l (1.12-1.32) L 07/14/22 23:50 Phosphorus 1.8 mg/dl (2.5-4.9) L 07/14/22 23:37 Magnesium 1.5 mg/dl (1.7-2.4) L 07/14/22 23:37 Total Bilirubin 13.6 mg/dl (0.2-1.0) H 07/14/22 23:37 AST 183 U/L (13-39) H 07/14/22 23:37 ALT 115 U/L (7-52) H 07/14/22 23:37 Alkaline Phosphatase 967 U/L (34-104) H 07/14/22 23:37 Total Creatine Kinase 387 U/L (30-223) H 07/14/22 23:37 Total Protein 6.0 gm/dl (6.0-8.3) 07/14/22 23:37 Albumin 3.3 gm/dl (3.4-5.0) L 07/14/22 23:37 Globulin 2.7 gm/dl (2.5-4.0) 07/14/22 23:37 Albumin/Globulin Ratio 1.2 (0.9-2) 07/14/22 23:37 Ethyl Alcohol mg/dL 57.5 mg/dl (<10.0) H 07/14/22 23:37 SARS-CoV-2, RNA, NAAT NEGATIVE (NEGATIVE) 07/15/22 00:[address] head initial read: No ICH, mass effect or edema. No evidence of acute cortical stroke. Visualized sinuses and mastoid air cells are clear CT abdomen pelvis initial read: Extensive hypodensity throughout the liver concerning for steatohepatitis. Mildly distended gallbladder. No other acute findings in the abdomen or pelvis. Chest x-ray as per my interpretation right upper lobe nodule, elevated right hemidiaphragm, atelectasis EKG as per my interpretation :Rate 85, NSR, normal axis, incomplete RBBB, T wave abnormalities lateral leads
[2022-07-15] MEDS ORDERED: POTASSIUM PHOSPHATE 30 MMOL in SODIUM CHLORIDE 0.9% 500 ML IV ONE (01:15)
[2022-07-15 01:45] LABS: Appearance Urine Clear (Clear); Blood Urine Negative (Negative); Color Urine Dark Yellow; Glucose Urine UA Negative (Negative); Ketones Urine Negative (Negative); Leukocyte Esterase Urine Negative (Negative); Nitrite Urine Negative (Negative); Protein Urine Negative (Negative); Specific Gravity Urine 1.005 (1.000-1.030); Urobilinogen Urine Negative (Negative); pH Urine 7.5 (4.5-7.5)
[2022-07-15] MEDS ORDERED: OPTIRAY 350 100ml IV ONE (01:50)
[2022-07-15] MEDS: POTASSIUM CHLORIDE / WTR 10 MEQ/100 ML PLCT IV SCH ×4 (01:53→06:02)
[2022-07-15 01:55] LABS: Bilirubin Urine 2+ (Negative)
[2022-07-15] MEDS: MAGNESIUM SULFATE / D5W 1 GM/100 ML BAG IV SCH ×2 (01:58→02:36)
[2022-07-15 02:06] LABS: Amphetamines+Metham, Urine Neg (Neg); Barbiturates, Urine Neg (Neg); Benzodiazepine, Urine Neg (Neg); Cocaine, Urine Neg (Neg); MDMA (Ecstacy), Urine Neg (Neg); Methadone, Urine Neg (Neg); Opiate, Urine Neg (Neg); Phencyclidine, Urine Neg (Neg)
[2022-07-15] MEDS ORDERED: POTASSIUM CHLORIDE PWD 20 MEQ PACK PO STA (02:10)
[2022-07-15] MEDS ORDERED: PANTOPRAZOLE BOLUS/DRIP 1 EACH IV STA (02:10)
[2022-07-15] MEDS ORDERED: GABAPENTIN 600 MG TAB PO STA (02:10)
[2022-07-15] MEDS ORDERED: Ativan IV Alcohol Withdrawal--Active Protocol IV PRN (02:22)
[2022-07-15] MEDS ORDERED: LORazepam 2 MG/1 ML VIAL IV PRN ×4 (02:22)
[2022-07-15] MEDS ORDERED: GABAPENTIN 1200MG ALCOHOL WITHDRAWAL LOAD PO STA (02:22)
[2022-07-15] MEDS ORDERED: PROMETHAZINE HCL 6.25 MG in SODIUM CHLORIDE 0.9% 50 ML IV PRN (02:22)
[2022-07-15] MEDS ORDERED: oxyCODONE HCL IR 5 MG TAB (IMMEDIATE RELEASE) PO PRN (02:22)
[2022-07-15] MEDS ORDERED: NICOTINE 21 MG/24 HR TDSY TD STA (02:32)
[2022-07-15] MEDS ORDERED: ACETAMINOPHEN 325 MG TAB PO PRN (03:17)
[2022-07-15] MEDS ORDERED: PANTOprazole 80 MG in DEXTROSE 5% 100 ML IV STA (03:29)
[2022-07-15] MEDS: PANTOprazole 40 MG in DEXTROSE 5% 100 ML IV SCH ×4 (04:02→20:22)
[2022-07-15 06:06] LABS: Base Excess VBG 0.1 mEq/L; HCO3 VBG 25 mmol/L; Oxygen Saturation VBG 73.7 %; PCO2 VBG 39 mmHg (38-50); PO2 VBG 41 mmHg; pH VBG 7.41 (7.36-7.41)
[2022-07-15 06:17] LABS: Magnesium 2.5 mg/dl (1.7-2.4)
[2022-07-15 06:25] LABS: BUN Creatinine Ratio 2.8 (10-20); Calcium 7.5 mg/dl (8.5-10.1); Creatinine Clr Calc Pharmacy 116.5 ml/min; Est GFR (Non-African American) 118.2 ml/min; Potassium 4.9 mmol/L (3.5-5.1)
[2022-07-15 06:29] LABS: Albumin Globulin Ratio 1.3 (0.9-2); Albumin Level 2.9 gm/dl (3.4-5.0); BUN Creatinine Ratio 2.8 (10-20); Bilirubin,Total 12.7 mg/dl (0.2-1.0); Calcium 7.6 mg/dl (8.5-10.1); Creatinine Clr Calc Pharmacy 114.9 ml/min; Est GFR (African American) 136.2 ml/min; Est GFR (Non-African American) 117.5 ml/min; Globulin 2.3 gm/dl (2.5-4.0); Potassium 4.8 mmol/L (3.5-5.1); Total Protein 5.2 gm/dl (6.0-8.3)
[2022-07-15 06:33] LABS: Estimated Average Glucose 94 mg/dl; Hemoglobin A1C 4.9 % (4.5-5.6)
--- NOTE | 2022-07-15 06:42 | CT Scan Report ---
CT head/brain wo con CLINICAL HISTORY: 37 years-old Male with sz, ETOH, hx ICH. Acute seizure like activity TECHNIQUE: Multiple axial CT images of the head were obtained without contrast. A dose lowering tech nique was utilized adhering to the principles of ALARA. CT DOSE: 537.48 mGy.cm COMPARISON: CTA of the head 05/10/2022 FINDINGS: No acute intracranial hemorrhage, midline shift, intracranial mass, hydrocephalus, territorial ischem ia or abnormal extra-axial collection. The calvarium is intact. The paranasal sinuses, mastoid air cells, and middle ear cavities are clear . IMPRESSION: No acute intracranial abnormality. ACT 112: Negative or not required by law. The above report was generated using voice recognition software. It may contain grammatical, syntax o r spelling errors. Electronically signed by: Esa Cruz M.D. 07/15/2022 6:40 AM
[2022-07-15 06:43] LABS: Vitamin B12 > 1500 pg/ml (180-914)
[2022-07-15 07:01] LABS: Hematocrit (blood only) 31.5 % (42.0-52.0); Hemoglobin 11.7 g/dl (14.0-18.0); Mean Corpuscular Hemoglobin 35.8 pg (25.0-34.0); Mean Corpuscular Hgb Conc 37.1 g/dL (32.0-36.0); Mean Corpuscular Volume 96.3 fL (80.0-100.0); Mean Platelet Volume 13.4 fL (9.4-12.4); Platelet Count 42 K/uL (130-400); RDW Coefficient of Variation 12.6 % (11.5-14.5); Red Blood Count 3.27 M/uL (4.70-6.10); White Blood Count 4.82 K/ul (4.8-10.8)
[2022-07-15 07:02] LABS: Basophils # (auto) 0.02 K/uL (0-0.2); Basophils % (auto) 0.4 %; Eosinophils # (auto) 0.11 K/uL (0-0.50); Eosinophils % (auto) 2.3 %; Immature Granulocytes # (auto) 0.02 K/uL (0.01-0.20); Immature Granulocytes % (auto) 0.4 %; Lymphocytes # (auto) 1.47 K/uL (1.2-3.4); Lymphocytes % (auto) 30.5 %; Monocytes # (auto) 0.44 K/uL (0.11-0.59); Monocytes % (auto) 9.1 %; Neutrophils # (auto) 2.76 K/uL (1.40-6.50); Neutrophils % (auto) 57.3 %; Pappenheimer Bodies 1+; Platelet Estimate Decreased (Normal); Polychromasia 1+; Reticulocytes # 0.03 10^6/uL (0.02-0.10); Target Cells 2+; Toxic Granulation 1+; Toxic Vacuolation 2+
[2022-07-15] MEDS ORDERED: DEXTROSE 5% 1,000 ML IV ONE (07:05)
[2022-07-15 07:51] LABS: Phosphorus 4.4 mg/dl (2.5-4.9)
--- NOTE | 2022-07-15 08:07 | CT Scan Report ---
CT abd pelvis IV con only CLINICAL HISTORY: ams, etoh abuse, jaundice TECHNIQUE: Helical axial images of the abdomen and pelvis were obtained and displayed. Automated dose lowering techniques and/or adjustment according to patient size were utilized for this exam. This e xam was performed with intravenous contrast. CT DOSE: 274.80 mGy.cm COMPARISON: Comparison is made to MRCP 09/05/2021 FINDINGS: Lower chest: No acute abnormality. Liver: Hepatic steatosis and hepatomegaly are noted. Gallbladder and biliary tree: There is mild prominence of the gallbladder wall measuring up to 3 mm. No intra- or extrahepatic biliary ductal dilation. Pancreas: Unremarkable, no focal lesions. Spleen: Unremarkable. Adrenals: Unremarkable. Kidneys and ureters: Unremarkable. Bladder: The bladder is distended and the wall is mildly homogeneously thickened. Reproductive organs: Unremarkable. Bowel: Unremarkable. Lymph nodes Retroperitoneal: Unremarkable. Pelvic: Unremarkable. Mesenteric: Unremarkable. Peritoneum: Normal. Vessels: Unremarkable. Abdominal wall: A fat-containing umbilical hernia is seen. Bones: Unremarkable. IMPRESSION: 1. Hepatomegaly and hepatic steatosis with gallbladder wall thickening. This may represent steatohep atitis with reactive gallbladder edema. 2. Bladder wall thickening is incidentally noted, correlation with urinalysis is recommended to excl ude UTI. ACT 112: Negative or not required by law. Electronically signed by: Albert Sharp M.D. 07/15/2022 8:05 AM
[2022-07-15] MEDS: GABAPENTIN 600 MG TAB PO SCH ×3 (08:09→19:51)
--- NOTE | 2022-07-15 08:19 | XRay Report ---
XR chest 1V portable CLINICAL HISTORY: ams TECHNIQUE: Single frontal radiograph of the chest was obtained. Comparison: Comparison is made to chest radiograph 07/10/2021 FINDINGS: No lines and tubes are seen. The cardiomediastinal silhouette is normal. The lungs are clear. Previou sly noted density in the right upper lung is not seen on today's exam. No evidence of pleural effusio n or pneumothorax. IMPRESSION: No acute chest disease. ACT 112: Negative or not required by law. Electronically signed by: Albert Sharp M.D. 07/15/2022 8:18 AM
--- NOTE | 2022-07-15 09:35 | Gastrointestinal Consultation ---
Date of Consultation July 15, 2022 Assessment & Plan (1) Jaundice: (2) Transaminitis: (3) Heme + stool: Plan Discussed case with Dr. Guido who helped advise on plan. - continue protonix drip at this time. - discussed with patient about performing an EGD to further evaluate the heme positive stools/anemia but the patient refuses at this time. He tells me he prefers just to follow labs at this time. - LFTs are improving on todays labs. suspect issues related to chronic etoh use. Patient will need to work towards alcohol cessation. - since he is deferring GI work up at this time, okay for clear liquids. Supervising Physician Co-Signing Physician Notes Agree with GIOVANNI Casas as above Abd: Soft, NT, ND, +BS, mild hepatomegaly Patient states he does not plan on stopping alcohol use, despite being told that it is a known liver toxin, and the cause of his current liver disease Recommend continuing supportive care and discharging when felt to be medically stable to avoid alcohol withdrawal Patient refuses endoscopic workup Recommend Pantoprazole 40 mg by mouth twice daily. History of Present Illness Reason for Consultation: UGIB Requesting Physician: Shun Mckeon MD Attending Physician: Julee Flores DO History of Present Illness Patient is a 37 year old male who presented to the ED with complaints of altered mental status as well as jaundice. He admits to chronic etoh use and tells me that he drinks about a 6 pack of etoh a day and has for a long time. Upon evaluation in the ED he had presented with a friend who reported patient had a seizure. Upon admission he did have CT with hepatomegally and hepatic steatosis with gallbladder wall thickening and bladder thickening. His initial T bili was 13.6, AST 183, ALT 115, alk phos 967. Since admission he tells me he has felt better and feels more alert. His lfts have started to trend downward. During evaluation in the ED he reportedly had dark stools that were heme positive per H&P. Hgb on admission was 12.9 and had trended down to 11.7 today. Patient tells me stools are at baseline for him and that he has not noticed any dark stools. he tells me that he does use aleve as needed at home but maybe only used twice in the past week. He is currently on a protonix drip. Patient tells me that a few days prior to admission he had an episode of vomiting but otherwise denies any nausea, heartburn, dysphagia, abdominal pain, change in bowels, melena, or brbpr. He tells me he has never had a colonoscopy or EGD. Allergies Allergy/AdvReac Type Severity Reaction Status Date / Time No Known Allergies Allergy Verified 07/14/22 23:43 Home Medications Medication Instructions Recorded Confirmed Type naproxen sodium 220 mg tablet 220 mg PO BID PRN Pain 02/22/22 07/14/22 History (Aleve) Patient History Medical History Alcohol use Alcohol withdrawal CHI (closed head injury) Chronic hyponatremia Hepatitis Thrombocytopenia Tobacco use Surgical History No pertinent past surgical history Family History Other Multiple myeloma Social History Smoking Status: Current every day smoker Tobacco Type: Cigarettes Cigarettes Per Day: pack a day; Second Hand Exposure: Yes; Hx Alcohol Use: Yes Alcohol type: beer Hx Substance Use: No Preferred Language: Mosotho Communication Ability: Effective Hearing Ability: Normal Flight Control Specialist Required: No Beliefs That Will Affect Care: None marital status: Single Current Living Situation: Alone current occupational status: employed Feels Safe at Home: Yes Assistive Devices: None Review of Systems Review of Systems: All systems reviewed & are unremarkable except as noted in HPI & below Physical Exam Constitutional: WD/WN, vitals as above Respiratory: normal respiratory effort, lungs clear to auscultation Cardiovascular: RRR, no murmur, no edema Gastrointestinal (Abdomen): normal bowel sounds, hepatomegally, soft, nontender. Skin: jaundiced. Psychiatric: Orientation: alert and oriented x 3 Affect: euthymic affect Results & Data ([facility]) Vital Signs (Past 12 Hours) Vital Signs Temp Pulse Pulse Resp BP BP Pulse Ox 07/15/22 07:02 36.8 C 75 17 111/70 97 07/15/22 03:18 36.7 C 75 16 112/68 93 07/15/22 01:00 79 19 105/71 96 07/15/22 00:37 70 18 115/73 99 07/14/22 23:18 36.5 C 97 H 16 134/86 98 O2 Del Method 07/15/22 07:02 Room Air 07/15/22 03:18 Room Air 07/15/22 01:00 Room Air 07/15/22 00:37 Room Air 07/14/22 23:18 Room Air PG Care Time/CCT Total # of Minutes Spent Total Time Spent with Patient: Total time spent is greater than 50% in coordination of care (as documented) at patient's floor/unit and/or counseling patient: Coding Level of Care Code INP/OBS CONSULT LVL 3, 45 MIN Diagnoses Jaundice R17 Transaminitis R74.01 Heme + stool R19.5
[2022-07-15] MEDS ORDERED: GADOBUTROL 65ML VIAL IV ONE (11:01)
--- NOTE | 2022-07-15 12:22 | Neurology Consultation ---
Date of Consultation July 15, 2022 Assessment & Plan (1) Alcohol withdrawal: Plan NEUROLOGY CONSULTATION Assessment & Plan: Impression: pt with again alcohol related seizure event in setting of liver disease and hyponatremia and hypokalemia. Recommendations: -no need for further work up for seizure at this point. need to correct underlying issue including alcohol cessation and metabolic disorders. ok to continue neurontin. no need for EEG not much else to add from neurology at this point. call again if new question. Dr. Marcello Gibson MD [facility] Neurology Chief Complaint: seizure History of Present Illness: HPI: pt doing well this morning. feeling back to baseline. he does report dehydration prior to admission and alcohol intake. pt with known alcohol related withdrawal seizure in the past and had work up including EEG (negative) in the past. CT head negative. MRI brain essentially unremarkable. Admission/Initial HPI documentation: [place] [facility] [place] subarachnoid hemorrhage likely right MCA versus right posterior communicating aneurysmal distribution pattern. Patient transferred from [facility] ED after patient presented with generalized tonic- clonic seizures resulting in head trauma. CTA showed possible small right posterior communicating aneurysm, possible underlying ruptured aneurysm leading to SAH as per report. Negative angiogram by [facility] [place]. Patient refused MRI. Patient signed out AGAINST MEDICAL ADVICE. Patient started drinking again shortly after discharge from [facility] Patient denies depression or suicidality. Admits to anger over child custody issues. Patient noted by friends/family to have yellow skin the last few days. No unusual belly pain. Admits to taking OTC NSAID for aches. Not aware of black or bloody stools. Patient noted to have involuntary jerks and stuttering at work yesterday. No headache or syncopal events. Patient denies chest pain, SOB. Past Medical History: See chart Meds: See chart I personally reviewed all of the medications Social & Family History: See chart Review of Systems: Per initial HPI on admission. Physical Exam: GEN: NAD HEENT: Normocephalic Neuro: Mental status:A & O x 3.No dysarthria or aphasia.No neglect. Fluent speech. No apraxia Cranial Nerves:II-XII intact Motor:Normal bulk and tone,5/5 strength x 4 extremities Coordination:Intact Chart reviewed I have spent more than 50% educating patient about potential diagnosis and digna rological evaluation and coordinating care with patient's treatment team. Total time spent (including chart review and coordination of care): 80 min (this includes chart review). History of Present Illness Attending Physician: Julee Flores DO Allergies Allergy/AdvReac Type Severity Reaction Status Date / Time No Known Allergies Allergy Verified 07/14/22 23:43 Home Medications Medication Instructions Recorded Confirmed Type naproxen sodium 220 mg tablet 220 mg PO BID PRN Pain 02/22/22 07/14/22 History (Aleve) Patient History Medical History Alcohol use Alcohol withdrawal CHI (closed head injury) Chronic hyponatremia Hepatitis Thrombocytopenia Tobacco use Surgical History No pertinent past surgical history Family History Other Multiple myeloma Social History Smoking Status: Current every day smoker Tobacco Type: Cigarettes Cigarettes Per Day: pack a day; Second Hand Exposure: Yes; Hx Alcohol Use: Yes Alcohol type: beer Hx Substance Use: No Preferred Language: Italian Communication Ability: Effective Hearing Ability: Normal Heating Technician Required: No Beliefs That Will Affect Care: None marital status: Single Current Living Situation: Alone current occupational status: employed Feels Safe at Home: Yes Assistive Devices: None Results & Data ([facility]) Vital Signs (Past 12 Hours) Vital Signs Temp Pulse Pulse Resp BP BP Pulse Ox 07/15/22 10:41 36.7 C 76 17 147/96 H 99 07/15/22 07:02 36.8 C 75 17 111/70 97 07/15/22 03:18 36.7 C 75 16 112/68 93 07/15/22 01:00 79 19 105/71 96 07/15/22 00:37 70 18 115/73 99 O2 Del Method 07/15/22 10:41 Room Air 07/15/22 07:02 Room Air 07/15/22 03:18 Room Air 07/15/22 01:00 Room Air 07/15/22 00:37 Room Air
--- NOTE | 2022-07-15 12:27 | Consultation Report ---
NEPHROLOGY CONSULTATION NOTE DATE OF SERVICE: 07/15/2022 REASON FOR CONSULTATION: Hyponatremia. HISTORY OF PRESENT ILLNESS: The patient is a 37-year-old male who presented to the hospital yesterday evening because of seizure and altered mental status. He has a history of alcohol abuse and has been admitted multiple times related with that. His admission blood work was very abnormal with a serum sodium of 115, and after that, he received normal saline. His electrolytes were also low including low potassium, low magnesium, and low phosphorus. All of the electrolytes are normal or slightly high this morning after replacement. Serum sodium has gone up fairly fast to 128 and after that normal saline has been stopped and dextrose water has been started. The patient has a history of seizure disorder, which tends to get worse with alcohol. He was last admitted to [facility] in 04/2022 for subarachnoid hemorrhage related with aneurysm. At that time, the patient was transferred from [facility] Emergency Department after the patient presented with generalized tonic- clonic seizure resulting in head trauma. While at [facility], he had a negative angiogram, but he refused MRI and signed out against medical advice. The patient has been drinking very heavily right after discharge from [facility]. 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 he drinks beer starting around noon time. He was noted to have yellow skin for the last few days by his friends, family and work place. The patient is not having any abdominal pain or black or bloody stools. He was noted to have involuntary jerking movement and stuttering at work yesterday, after which he was sent over to home from work and possible seizure was witnessed by a friend on the way to the Emergency Department. Since being admitted, the patient has been seen by gastroenterology this morning for very abnormal liver function test. He has a bilirubin level of 12.7. His last bilirubin level was 2.2 back in April. He has had a CT scan of the abdomen and pelvis, which showed the kidneys are unremarkable and liver shows fatty liver and hepatomegaly. As for the hyponatremia, he did get urine osmolality done, which was somewhat low at 124 with a very low specific gravity of 1.005. Blood pressure is within reasonable range as well as other vital signs. He is currently written for a clear diet and is getting D5 water. PAST MEDICAL AND SURGICAL HISTORY: Includes history of intracranial aneurysm with subarachnoid hemorrhage, chronic hyponatremia related with heavy alcohol use, history of alcohol withdrawal seizure, history of seizure disorder, fatty liver with chronically abnormal LFT, ongoing alcohol and tobacco abuse, chronic thrombocytopenia, intracranial angiogram. FAMILY HISTORY: Positive for asthma, diabetes, heart disease. SOCIAL HISTORY: Heavy alcohol use as well as a lot of tobacco use. 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 ALLERGIES: None. MEDICATIONS: Home medication list was reviewed, and he really does not take any medication. REVIEW OF SYSTEMS: As detailed in the HPI. The patient is a poor historian and does not seem to recall all the events that have happened in the recent past. PHYSICAL EXAMINATION: GENERAL: Chronically ill-appearing young white male, in no respiratory distress. He seems anxious and somewhat shaky. SKIN: Does look quite yellow with jaundice. HEENT: Mucous membrane is moist. NECK: Supple. No jugular venous distention. CHEST: Bilaterally decreased breath sounds, expiratory wheezes, poor inspiratory effort. HEART: Regular rate and rhythm. No obvious murmur heard. ABDOMEN: Slightly tender in the right upper quadrant with hepatomegaly. No obvious ascites noted. EXTREMITIES: Show no edema. NEUROLOGIC: Fairly normal speech. Moving all 4 extremities. He is awake, alert and oriented. LABORATORY TEST: Chest x-ray was unremarkable without any evidence of CHF. CT abdomen and pelvis shows hepatomegaly and hepatic steatosis with gallbladder thickening. There was also mention of bladder wall thickening. Kidneys were unremarkable. The patient has chronic hyponatremia, but on admission, it was significantly worse at 115 and this morning about 6 hours later, it went up to 128. Urine specific gravity very low at 1.005. Urine osmolality 124. Urine sodium 25. ASSESSMENT AND PLAN: A 37-year-old male with a history of heavy alcohol abuse with fatty liver and hepatomegaly and chronically elevated bilirubin, now admitted after an episode of seizure. I have been consulted for hyponatremia. 1. Hyponatremia: This appears to be fairly chronic and related with very heavy alcohol use and very heavy water intake. He drinks mainly beer, which is even worse for hyponatremia and drinks 1.5 gal of water per day. 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 All of his electrolytes were low signifying poor nutrition of solid food. His very low urine specific gravity, heavy beer drinking and a somewhat low urine osmolality is consistent with a diagnosis of beer potomania. His serum sodium has corrected very fast, which is a problem, especially given his seizure disorder. I agree with changing to D5 water, which has been done just recently. We do need to do another blood work right now to see where things are with the serum sodium. If the sodium is still rising fast, I would increase the D5 water even more and even consider giving desmopressin to bring down the serum sodium. I do not want his serum sodium to correct more than 8 mEq in a 24-hour time period and at this time we are very fast with the rate of correction. I will continually be involved with a BMP measurement and further planning will be done based on that. All of his electrolytes problem has pretty much resolved. In fact, his magnesium is now slightly high, but this should come down gradually. 2. Very abnormal liver function test: This is being addressed by gastroenterology. He does have chronically low platelet count and very elevated bilirubin. Thank you very much for the consult. Case complexity of this patient is very high and more than 50 minutes was spent in the chart review. Job ID: [id number] [facility]
--- NOTE | 2022-07-15 12:32 | Magnetic Resonance Report ---
MR brain seizure wo/w con CLINICAL HISTORY: sz TECHNIQUE: Multiplanar and multisequence MR images of the brain were obtained prior to and following administration of gadolinium contrast. Comparison: Comparison is made to MR brain 07/18/[address] head 07/15/2022 FINDINGS: No abnormal restricted diffusion is identified. Foci of T2 and FLAIR hyperintensity are noted in the paraventricular areas consistent with chronic small vessel ischemic disease. Ex vacuo ventriculomegal y and sulcal enlargement is noted compatible with diffuse encephalomalacia. No mass or abnormal enhan cement is seen. There is no mass effect or midline shift. There is no evidence of acute intraparenchy mal hemorrhage. No extra axial fluid collections are seen. The corpus callosum, pituitary gland, and cerebellar tonsils appear grossly unremarkable. High-resolution images of the temporal lobes do not d emonstrate any signal abnormality. Flow voids of the major intracranial arterial vessels are identified. The imaged portions of the para nasal sinuses, mastoid air cells, and orbits are unremarkable. IMPRESSION: No acute abnormality. In particular, no edema in the temporal lobes bilaterally in this postictal pat ient. ACT 112: Negative or not required by law. Electronically signed by: Albert Sharp M.D. 07/15/2022 12:31 PM
[2022-07-15 12:36] LABS: Hematocrit (blood only) 36.2 % (42.0-52.0); Hemoglobin 12.9 g/dl (14.0-18.0)
[2022-07-15 13:05] LABS: Calcium 7.8 mg/dl (8.5-10.1); Potassium 3.2 mmol/L (3.5-5.1)
[2022-07-15 13:28] LABS: BUN Creatinine Ratio 3.8 (10-20); Creatinine Clr Calc Pharmacy 103.4 ml/min; Est GFR (African American) 130.4 ml/min; Est GFR (Non-African American) 112.5 ml/min
--- NOTE | 2022-07-15 15:27 | Electrocardiogram Report ---
Test Reason : Blood Pressure : / mmHG Vent. Rate : 085 BPM Atrial Rate : 085 BPM P-R Int : 138 ms QRS Dur : 120 ms QT Int : 392 ms P-R-T Axes : 076 023 090 degrees QTc Int : 466 ms Normal sinus rhythm Possible Left atrial enlargement Incomplete right bundle branch block Abnormal ECG When compared with ECG of 10-MAY-2022 22:14, T wave amplitude has decreased in Inferior leads Nonspecific T wave abnormality now evident in Lateral leads Confirmed by Ki Marks ([id number]) on 07/15/2022 3:26:56 PM Referred By: REFERRED SELF Confirmed By:Kannan Marks
--- NOTE | 2022-07-15 16:03 | Hospitalist Progress Note ---
Date of Service July 15, 2022 Assessment & Plan (1) Alcohol withdrawal seizure: Plan: Patient came in reporting not feeling well including stuttering and malaise. MRI of the brain was performed today and revealed no acute intra cranial abnormality. Had a witnessed possible seizure in the car while friend was driving him to the ER last night. He does have a history of recurrent alcohol withdrawal seizures in the past. Also has a h/o SAH last year possibly from aneurysm. Per neurology, alcohol cessation recommended and will cont gabapentin. ATivan PRN. New onset stuttering ? Related to alcohol withdrawal seizures vs acute hyponatremia. 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 Sodium initially 115 corrected to 129 today. An increase in dextrose has not improved this level which should be closer to 123. Desmopressin dose given now. Repeat labs this evening. Discussed this with nephrology. Free water restriction as well. (3) Anemia: Plan: Mild anemia with heme positive stool. Placed on a PPI drip overnight for concerns of upper GI bleed. He was seen by gastroenterology who recommended to continue the Protonix drip at this time and evaluate the patient with an EGD for further evaluation. The patient declined endoscopy and prefers to just follow the labs. He is not actively bleeding any gross blood per his report. (4) Heme + stool: Plan: Plan as above. (5) Thrombocytopenia: Plan: Chronic thrombocytopenia likely secondary to alcoholic liver disease. Platelets remain in the 40s. No active bleeding. (6) Tobacco use disorder: Plan: Smoking cessation advised. Likely the cause of his intermittent wheezing on exam. Chemoprophylaxis contraindicated for DVT prophylaxis secondary to thrombocytopenia Full code Disposition to home likely tomorrow Julee Flores DO [facility]ist Admission and Anticipated Discharge Date Admission Date: July 15, 2022 Subjective 37-year-old man with alcoholism presents with acute hyponatremia and high risk for withdrawal. He reports overall feeling well today. He does admit that he needs to cut down on his drinking. 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 Tremulousness has appeared to improve. He is comfortable with staying overnight. Discussed the case with primary RN and decay control operator. Review of Systems Review of Systems: All systems were reviewed and negative except as indicated above. Physical Exam Physical Exam: CONSTITUTIONAL: WNWD, vitals as above, generally well- appearing EYES: normal conjunctivae, no scleral icterus ENT: external ear and nose normal, NECK: trachea midline, RESPIRATORY: clear to auscultation bilaterally, no crackles, rales or wheezes, normal respiratory effort CARDIOVASCULAR: regular rate and rhythm, S1 and 2 heard without murmurs, gallops or rubs, no JVD, no peripheral edema, CHEST: inspection of chest was normal GASTROINTESTINAL: soft, nontender, no guarding MUSCULOSKELETAL: strength 5/5 throughout, head is normocephalic and atraumatic, neck supple, normal palpation of chest wall without tenderness SKIN: warm and dry, multiple tattoes NEUROLOGIC: CN 2-12 grossly intact, no sensory deficit, normal cognition, normal speech, no tremor PSYCHIATRIC: alert cooperative and oriented to person, place and time. Euthymic mood, makes good eye contact, language grossly intact, recent and remote memory grossly intact. Results & Data Results & Data ([facility]) Vital Signs (Past 12 Hours) Vital Signs Temp Pulse Resp BP Pulse Ox O2 Del Method 07/15/22 15:03 36.9 C 77 17 136/86 93 Room Air 07/15/22 10:41 36.7 C 76 17 147/96 H 99 Room Air 07/15/22 07:02 36.8 C 75 17 111/70 97 Room Air Laboratory Results Short CBC 07/14/22 07/15/22 07/15/22 Range/Units 23:37 05:38 11:59 WBC 6.32 4.82 (4.8-10.8) K/ul Hgb 12.9 L 11.7 L 12.9 L (14.0-18.0) g/dl Hct 34.5 L 31.5 L 36.2 L (42.0-52.0) % Plt Count 41 L 42 L (130-400) K/uL 07/15/22 Range/Units 15:37 WBC (4.8-10.8) K/ul Hgb 11.2 L (14.0-18.0) g/dl Hct 30.4 L (42.0-52.0) % Plt Count (130-400) K/uL BMP 07/14/22 07/15/22 07/15/22 23:37 05:38 05:38 Sodium 115 L* 128 L D 128 L Potassium 2.9 L 4.8 D 4.9 Chloride 77 L 96 L 96 L Carbon Dioxide 16 L 25 25 BUN 3 L 2 L 2 L Creatinine 0.78 0.72 0.71 Glucose 111 H 92 92 Calcium 8.1 L 7.6 L 7.5 L 07/15/22 07/15/22 11:59 15:37 Sodium 129 L 129 L Potassium 3.2 L D 3.5 Chloride 97 L 98 Carbon Dioxide 24 24 BUN 3 L 2 L Creatinine 0.80 0.64 Glucose 115 H 97 Calcium 7.8 L 7.5 L Cardiac Enzymes 07/14/22 Range/Units 23:37 Total Creatine Kinase 387 H (30-223) U/L Liver Function 07/14/22 07/15/22 Range/Units 23:37 05:38 Total Bilirubin 13.6 H 12.7 H (0.2-1.0) mg/dl AST 183 H 154 H (13-39) U/L ALT 115 H 98 H (7-52) U/L Alkaline Phosphatase 967 H 831 H (34-104) U/L Albumin 3.3 L 2.9 L (3.4-5.0) gm/dl Urine 07/15/22 Range/Units 01:33 Urine Color Dark Yellow Urine Appearance Clear (Clear) Urine pH 7.5 (4.5-7.5) Ur Specific [place] 1.005 (1.000-1.030) Urine Protein Negative (Negative) Urine Glucose (UA) Negative (Negative) Diagnostic Findings Head CT 07/14/22 23:34 CT head/brain wo con CLINICAL HISTORY: 37 years-old Male with sz, ETOH, hx ICH. Acute seizure like activity TECHNIQUE: Multiple axial CT images of the head were obtained without contrast. A dose lowering technique was utilized adhering to the principles of ALARA. CT DOSE: 537.48 mGy.cm COMPARISON: CTA of the head 05/10/2022 FINDINGS: No acute intracranial hemorrhage, midline shift, intracranial mass, hydrocephalus, territorial ischemia or abnormal extra-axial collection. The calvarium is intact. The paranasal sinuses, mastoid air cells, and middle ear cavities are clear. IMPRESSION: No acute intracranial abnormality. ACT 112: Negative or not required by law. The above report was generated using voice recognition software. It may contain grammatical, syntax or spelling errors. Electronically signed by: Esa Cruz M.D. 07/15/2022 6:40 AM Chest X-Ray 07/15/22 00:20 XR chest 1V portable CLINICAL HISTORY: ams TECHNIQUE: Single frontal radiograph of the chest was obtained. Comparison: Comparison is made to chest radiograph 07/10/2021 FINDINGS: No lines and tubes are seen. The cardiomediastinal silhouette is normal. The lungs are clear. Previously noted density in the right upper lung is not seen on today's exam. No evidence of pleural effusion or pneumothorax. IMPRESSION: No acute chest disease. ACT 112: Negative or not required by law. Electronically signed by: Albert Sharp M.D. 07/15/2022 8:18 AM Abdomen/Pelvis CT 07/15/22 01:02 CT abd pelvis IV con only CLINICAL HISTORY: ams, etoh abuse, jaundice TECHNIQUE: Helical axial images of the abdomen and pelvis were obtained and displayed. Automated dose lowering techniques and/or adjustment according to patient size were utilized for this exam. This exam was performed with intravenous contrast. CT DOSE: 274.80 mGy.cm COMPARISON: Comparison is made to MRCP 09/05/2021 FINDINGS: Lower chest: No acute abnormality. Liver: Hepatic steatosis and hepatomegaly are noted. Gallbladder and biliary tree: There is mild prominence of the gallbladder wall measuring up to 3 mm. No intra- or extrahepatic biliary ductal dilation. Pancreas: Unremarkable, no focal lesions. Spleen: Unremarkable. Adrenals: Unremarkable. Kidneys and ureters: Unremarkable. Bladder: The bladder is distended and the wall is mildly homogeneously thic kened. Reproductive organs: Unremarkable. Bowel: Unremarkable. Lymph nodes Retroperitoneal: Unremarkable. Pelvic: Unremarkable. Mesenteric: Unremarkable. Peritoneum: Normal. Vessels: Unremarkable. Abdominal wall: A fat-containing umbilical hernia is seen. Bones: Unremarkable. IMPRESSION: 1. Hepatomegaly and hepatic steatosis with gallbladder wall thickening. This may represent steatohepatitis with reactive gallbladder edema. 2. Bladder wall thickening is incidentally noted, correlation with urinalysis is recommended to exclude UTI. ACT 112: Negative or not required by law. Electronically signed by: Albert Sharp M.D. 07/15/2022 8:05 AM Brain MRI 07/15/22 02:22 MR brain seizure wo/w con CLINICAL HISTORY: sz TECHNIQUE: Multiplanar and multisequence MR images of the brain were obtained prior to and following administration of gadolinium contrast. Comparison: Comparison is made to MR brain 07/18/[address] head 07/15/2022 FINDINGS: No abnormal restricted diffusion is identified. Foci of T2 and FLAIR hyperintensity are noted in the paraventricular areas consistent with chronic small vessel ischemic disease. Ex vacuo ventriculomegaly and sulcal enlargement is noted compatible with diffuse encephalomalacia. No mass or abnormal enhancement is seen. There is no mass effect or midline shift. There is no evidence of acute intraparenchymal hemorrhage. No extra axial fluid collections are seen. The corpus callosum, pituitary gland, and cerebellar tonsils appear grossly unremarkable. High-resolution images of the temporal lobes do not demonstrate any signal abnormality. Flow voids of the major intracranial arterial vessels are identified. The imaged portions of the paranasal sinuses, mastoid air cells, and orbits are u nremarkable. IMPRESSION: No acute abnormality. In particular, no edema in the temporal lobes bilaterally in this postictal patient. ACT 112: Negative or not required by law. Electronically signed by: Albert Sharp M.D. 07/15/2022 12:31 PM Medications Administered Current Inpatient Medications Acetaminophen (Acetaminophen 325 Mg Tab) 325 mg PO Q6H PRN PRN Reason: Mild Pain Stop: 08/14/22 03:16 Folic Acid (Folic Acid 1 Mg Tab) 1 mg PO QAM MEMO Stop: 08/15/22 08:59 Gabapentin (Gabapentin 600 Mg Tab) 600 mg PO Q8H MEMO Stop: 07/16/22 14:31 Gabapentin (Gabapentin 600 Mg Tab) 600 mg PO Q12H MEMO Stop: 07/17/22 14:31 Gabapentin (Gabapentin 600 Mg Tab) 600 mg PO Q24H MEMO Stop: 07/18/22 14:31 Promethazine HCl 6.25 mg/ (Sodium Chloride) 50.25 mls @ 201 mls/hr IV Q6H PRN PRN Reason: Nausea And Vomiting Stop: 08/14/22 02:21 Pantoprazole Sodium 40 mg/ (Dextrose) 100 mls @ 20 mls/hr IV Q5H MEMO Stop: 08/14/22 03:59 Last Admin: 07/15/22 14:28 Dose: 8 mg/hr, 20 mls/hr Lorazepam (Lorazepam 2 Mg/1 Ml Vial) 1 mg IV UD PRN; Protocol PRN Reason: EtOH Withdrawal AWSS Score 6,7 Stop: 08/14/22 02:21 Lorazepam (Lorazepam 2 Mg/1 Ml Vial) 2 mg IV UD PRN; Protocol PRN Reason: EtOH Withdrawal AWSS Score 8,9 Stop: 08/14/22 02:21 Lorazepam (Lorazepam 2 Mg/1 Ml Vial) 3 mg IV ONCE PRN; Protocol PRN Reason: EtOH Withdrawal AWSS Score 10+ Lorazepam (Lorazepam 2 Mg/1 Ml Vial) 1 mg IV Q10M PRN PRN Reason: seizures Stop: 08/14/22 02:21 Miscellaneous (Remove Nicoderm Patch) 1 each N/A DAILY@0859 [facility] Stop: 08/15/22 08:58 Multivitamins (Multivitamin Tab) 1 tab PO QAM [facility] Stop: 08/15/22 08:59 Nicotine (Nicotine 21 Mg/24 Hr Tdsy) 21 mg TD QAM [facility] Stop: 08/15/22 08:59 Oxycodone HCl (Oxycodone Hcl Ir 5 Mg Tab (Immediate Release)) 5 mg PO Q4H PRN PRN Reason: Pain Stop: 07/29/22 02:21 Thiamine HCl (Thiamine Hcl 100 Mg Tab) 100 mg PO QAM [facility] Stop: 08/15/22 08:59 (1) Alcohol withdrawal seizure Complication of substance-induced condition: uncomplicated Qualified Code(s): F10.930 - Alcohol use, unspecified with withdrawal, uncomplicated; R56.9 - Unspecified convulsions
[2022-07-15 16:11] LABS: Hematocrit (blood only) 30.4 % (42.0-52.0); Hemoglobin 11.2 g/dl (14.0-18.0)
[2022-07-15 16:32] LABS: Calcium 7.5 mg/dl (8.5-10.1); Potassium 3.5 mmol/L (3.5-5.1)
[2022-07-15 16:38] LABS: BUN Creatinine Ratio 3.1 (10-20); Creatinine Clr Calc Pharmacy 129.2 ml/min; Est GFR (African American) 142.9 ml/min; Est GFR (Non-African American) 123.3 ml/min
[2022-07-15] MEDS ORDERED: DESMOPRESSIN ACETATE 1 MCG in SODIUM CHLORIDE 0.9% 50 ML IV STA (17:01)
[2022-07-15 21:51] LABS: Calcium 7.8 mg/dl (8.5-10.1); Creatinine Clr Calc Pharmacy 81.9 ml/min; Est GFR (African American) 108.1 ml/min; Est GFR (Non-African American) 93.3 ml/min; Potassium 3.7 mmol/L (3.5-5.1)
[2022-07-16] MEDS: PANTOprazole 40 MG in DEXTROSE 5% 100 ML IV SCH ×2 (02:05→05:20)
[2022-07-16] MEDS: GABAPENTIN 600 MG TAB PO SCH (05:20)
[2022-07-16 06:25] LABS: Hematocrit (blood only) 32.8 % (42.0-52.0); Hemoglobin 11.7 g/dl (14.0-18.0); Mean Corpuscular Hemoglobin 35.8 pg (25.0-34.0); Mean Corpuscular Hgb Conc 35.7 g/dL (32.0-36.0); Mean Corpuscular Volume 100.3 fL (80.0-100.0); Mean Platelet Volume 12.4 fL (9.4-12.4); Platelet Count 48 K/uL (130-400); RDW Coefficient of Variation 13.4 % (11.5-14.5); RDW Standard Deviation 49.8 fL (36.4-46.3); Red Blood Count 3.27 M/uL (4.70-6.10); White Blood Count 5.49 K/ul (4.8-10.8)
[2022-07-16 07:36] LABS: Albumin Globulin Ratio 1.2 (0.9-2); Albumin Level 3.1 gm/dl (3.4-5.0); BUN Creatinine Ratio 3.8 (10-20); Bilirubin,Total 10.3 mg/dl (0.2-1.0); Calcium 8.3 mg/dl (8.5-10.1); Creatinine Clr Calc Pharmacy 100.5 ml/min; Est GFR (African American) 130.4 ml/min; Est GFR (Non-African American) 112.5 ml/min; Globulin 2.6 gm/dl (2.5-4.0); Phosphorus 1.4 mg/dl (2.5-4.9); Potassium 3.5 mmol/L (3.5-5.1); Total Protein 5.7 gm/dl (6.0-8.3)
[2022-07-16] MEDS ORDERED: SODIUM PHOSPHATE 3 MMOL/1 ML 5 ML VIAL IV ONE (07:40)
[2022-07-16] MEDS ORDERED: SODIUM PHOSPHATE 30 MMOL in SODIUM CHLORIDE 0.9% 500 ML IV ONE (08:00)
[2022-07-16] MEDS ORDERED: THIAMINE HCL 100 MG TAB PO SCH (09:00)
[2022-07-16] MEDS ORDERED: DEXTROSE 5% 1,000 ML IV SCH (09:00)
[2022-07-16] MEDS ORDERED: MULTIVITAMIN TAB PO SCH (09:00)
[2022-07-16] MEDS ORDERED: FOLIC ACID 1 MG TAB PO SCH (09:00)
[2022-07-16] MEDS ORDERED: NICOTINE 21 MG/24 HR TDSY TD SCH (09:00)
--- NOTE | 2022-07-16 09:36 | Discharge Summary ---
Discharge Summary Date of Service July 16, 2022 Notes For Next Care Provider Follow-up for ongoing liver disease, alcohol abuse and smoking admitted with an alcohol withdrawal seizure Medication Changes From Visit NEW Phosphate supplementation NEW Protonix 40mg PO daily NEW Thiamine 100mg daily NEW Folate 1mg PO daily NEW Nicoderm patch for smoking cessation STOP Naproxen Admission HPI Per Admitting Provider History obtained from patient and records. Medical history significant for SAH, intracranial aneurysm, chronic hyponatremia, history alcohol withdrawal seizures, hepatic steatosis as per records, emphysema/R lung nodule as per records, ongoing alcohol/ tobacco abuse, chronic thrombocytopenia. Last confinement [facility] April 2022 for subarachnoid hemorrhage likely right MCA versus right posterior communicating aneurysmal distribution pattern. Patient transferred from [facility] ED after patient presented with generalized tonic- clonic seizures resulting in head trauma. CTA showed possible small right posterior communicating aneurysm, possible underlying ruptured aneurysm leading to SAH as per report. Negative angiogram by [facility] neurosurgeon. Patient refused MRI. Patient signed out AGAINST MEDICAL ADVICE. Patient started drinking again shortly after discharge from [facility]. Patient denies depression or suicidality. Admits to anger over child custody issues. Patient noted by friends/family to have yellow skin the last few days. No unusual belly pain. Admits to taking OTC NSAID for aches. Not aware of black or bloody stools. Patient noted to have involuntary jerks and stuttering at work yesterday. No headache or syncopal events. Patient denies chest pain, SOB. Possible seizure witnessed by a friend on route to the ER. 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 Admission Exam Per Admitting Provider Physical Exam: GENERAL: Tremulous, chronically ill, no respiratory distress SKIN: jaundice, warm HEENT: Pale palpebral conjunctivae, no ptosis, dry buccal mucosa NECK : Supple, no tenderness CHEST : Decreased breath sounds, expiratory wheezes, no tenderness HEART : RRR, no obvious murmurs ABDOMEN: no distention, nontender RECTAL : Intact sphincter, black stool (FOBT positive) EXTREMITIES : No LE swelling/tenderness, no other conspicuous deformities noted NEUROLOGIC : coherent, no facial asymmetry, tremulous, no other gross focality Principal Dx & Hospital Course #1 = Principal Diagnosis (1) Alcohol withdrawal seizure: Patient came in reporting not feeling well including stuttering and malaise. MRI of the brain was performed and revealed no acute intra cranial abnormality. Had a witnessed possible seizure in the car while friend was driving him to the ER. He does have a history of recurrent alcohol withdrawal seizures in the past. Also has a h/o SAH last year possibly from aneurysm. Per neurology, alcohol cessation recommended and patient reports that he has no intention of stopping. He reports uncontrolled depression and states that he has a counselor but feels this is his path because of a long custody duron for his child. We discussed not driving while intoxicated and especially because of how severe this alcohol problem has become, he is now having seizures related to its use and could harm himself or someone else while driving on the road. He verbalized this didn't affect him and that he had no intention of changing what he was doing with his life. He specifically said, "I can do whatever I want with my fucking life." His symptoms coming in may have had something to do with seizure activity from alcohol use, severe hyponatremia or both. He has progressed liver disease evidenced by chronic hyperbilirubinemia with jaundice (total bilirubin 13.6 on admission. Other LFTs were AST 183, ALT 115, alk phos 967.) These improved slightly with admission but were still elevated at discharge. GI was consulted and reported the patient states he did not plan on stopping alcohol use despite being told it is unknown liver toxin and is the cause of his current liver disease. He refused endoscopic work-up. Protonix was recommended to be continued. For work-up of seizure neurology was consulted and did not feel it was necessary to perform an EEG as the underlying issue needed to be corrected with alcohol cessation and correction of his underlying electrolyte disorder. He was instructed to restrict driving for the time being. (2) Acute hyponatremia: Likely related to beer Potomania/psychogenic polydipsia. Sodium initially 115 corrected to 129. Nephrology assisted with correction. The patient requested discharge despite a suboptimal sodium level. Repeat BMP in one week recommended. Free water restriction to 8 glasses water daily and eating more solid foods recommended. (3) Anemia: Mild anemia with heme positive stool. Placed on a PPI drip overnight for concerns of upper GI bleed. He was seen by gastroenterology who recommended to continue the Protonix drip at this time and evaluate the patient with an EGD for further evaluation. The patient declined endoscopy and prefers to just follow the labs. He is not actively bleeding any gross blood per his report. Protonix prescribed at discharge. (4) Heme + stool: Plan as above. (5) Thrombocytopenia: Chronic thrombocytopenia likely secondary to alcoholic liver disease. Platelets remain in the 40s. No active bleeding. (6) Hypophosphatemia: IV supplementation declined. Oral supplementation given at discharge. (7) Tobacco use disorder: Smoking cessation advised. Likely the cause of his intermittent wheezing on exam. Chemoprophylaxis contraindicated for DVT prophylaxis secondary to thrombocytopenia Full code Disposition to home with close primary care followup recommended. Julee Flores DO [facility] Hospitalist (8) Alcohol dependence: Discharge Exam CONSTITUTIONAL: WNWD, vitals as above, generally well-appearing EYES: normal conjunctivae, no scleral icterus ENT: external ear and nose normal, NECK: trachea midline, RESPIRATORY: clear to auscultation bilaterally, no crackles, rales or wheezes, normal respiratory effort CARDIOVASCULAR: regular rate and rhythm, S1 and 2 heard without murmurs, gallops or rubs, no JVD, no peripheral edema, CHEST: inspection of chest was normal GASTROINTESTINAL: soft, nontender, no guarding MUSCULOSKELETAL: strength 5/5 throughout, head is normocephalic and atraumatic, neck supple, normal palpation of chest wall without tenderness SKIN: warm and dry, multiple tattoes NEUROLOGIC: CN 2-12 grossly intact, no sensory deficit, normal cognition, normal speech, no tremor PSYCHIATRIC: alert cooperative and oriented to person, place and time. Euthymic mood, makes good eye contact, language grossly intact, recent and remote memory grossly intact. Updated Medication List Medication Instructions Recorded Confirmed Type folic acid 1 mg tablet 1 mg PO QAM #30 tabs 07/16/22 Rx nicotine 21 mg/24 hr daily 21 mg transdermal QAM #14 ea 07/16/22 Rx transdermal patch (Nicoderm CQ) pantoprazole 40 mg tablet,delayed 40 mg PO DAILY #30 tabs 07/16/22 Rx release (Protonix) sodium di- and 1 tab PO QID #20 tabs 07/16/22 Rx monophosphate-potassium phos monobasic 250 mg tablet (Phospha Neutral) thiamine HCl (vitamin B1) 100 mg 100 mg PO QAM #30 tabs 07/16/22 Rx tablet Hospital Stay Data Consultations 07/15/22 01:10 ED Decision to Admit Stat 07/15/22 03:17 Consult Gastroenterology Routine Consult Neurology Routine 07/15/22 09:16 Consult Nephrology Routine Diagnostic Imagining Performed 07/14/22 23:34 CT head/brain wo con Urgent 07/15/22 01:02 CT abd pelvis IV con only Urgent 07/15/22 02:22 MRI Brain [MR brain seizure wo/w con] Routine Pending Results Patient Have Any Pending Studies at Discharge: No Discharge Instructions Given to Patient (Per Discharging Provider) Please take all medications as instructed on discharge list below. Please follow-up with your primary care physician within the next week to discuss your ongoing uncontrolled depression, alcohol use and liver disease. Your phosphate was low so you are receiving supplementation to take at home. This should be rechecked by your physician next week. Additionally, your sodium was still too low at time of discharge. Please restrict your water intake to 8 kitchen sized glasses per day and eat more solid foods. Strict alcohol cessation is strongly recommended. Smoking cessation is recommended. No driving until your alcohol issues are under control. If you have a seizure related to alcohol while driving, this can harm you or others on the road with you. It was a pleasure taking care of you! Please call if you have any questions or problems. You can reach a [facility] hospitalist on duty at [facility] 24 hours a day by calling [phone]. Take care of yourself. Julee Flores, [facility] Hospitalist Total Time Total Time Spent Total Time Spent (In Minutes): 60
[2022-07-17] MEDS ORDERED: GABAPENTIN 600 MG TAB PO SCH (02:30)
[2022-07-18] MEDS ORDERED: GABAPENTIN 600 MG TAB PO SCH (14:30)
--- NOTE | 2022-07-18 22:10 | Electroencephalogram ---
EEG Procedure Note Date of Service July 15, 2022 Start / End Times Start Time: 08:40 End Time: 09:[address] Gilson Flores History A 37 year old male with alcohol withdrawl. EEG performed for evaluation of epileptiform activity. Home Medication List Medication Instructions Recorded Confirmed Type folic acid 1 mg tablet 1 mg PO QAM #30 tabs 07/16/22 Rx nicotine 21 mg/24 hr daily 21 mg transdermal QAM #14 ea 07/16/22 Rx transdermal patch (Nicoderm CQ) pantoprazole 40 mg tablet,delayed 40 mg PO DAILY #30 tabs 07/16/22 Rx release (Protonix) sodium di- and 1 tab PO QID #20 tabs 07/16/22 Rx monophosphate-potassium phos monobasic 250 mg tablet (Phospha Neutral) thiamine HCl (vitamin B1) 100 mg 100 mg PO QAM #30 tabs 07/16/22 Rx tablet Inpatient Medication List Discontinued Medications Folic Acid (Folic Acid 1 Mg Tab) 1 mg PO QAM [facility] Stop: 08/15/22 08:59 Last Admin: 07/16/22 08:34 Dose: 1 mg Documented By: RAYMOND Gabapentin (Gabapentin 600 Mg Tab) 1,200 mg PO NOW STA Stop: 07/15/22 02:11 Last Admin: 07/15/22 02:49 Dose: 1,200 mg Documented By: WILLIE Gabapentin (Gabapentin 600 Mg Tab) 600 mg PO Q6H [facility] Stop: 07/15/22 14:31 Last Admin: 07/15/22 15:11 Dose: 600 mg Documented By: Admin: 07/15/22 08:09 Dose: 600 mg Documented By: ALBINO Gabapentin (Gabapentin 600 Mg Tab) 600 mg PO Q8H [facility] Stop: 07/16/22 14:31 Last Admin: 07/16/22 05:20 Dose: 600 mg Documented By: Admin: 07/15/22 19:51 Dose: 600 mg Documented By: LEONARD Gadobutrol (Gadobutrol 65ml Vial) 6 ml IV ONCE ONE Stop: 07/15/22 11:02 Last Admin: 07/15/22 11:01 Dose: 6 ml Documented By: GENEVA Sodium Chloride (Nss 1000ml) 1,000 mls @ 999 mls/hr IV .Q1H1M [facility] Stop: 07/15/22 00:45 Last Infusion: 07/15/22 01:09 Dose: 0 mls/hr Documented By: Admin: 07/15/22 00:08 Dose: 999 mls/hr Documented By: WILLIE Multivitamins 10 ml/ Thiamine HCl 100 mg/ Folic Acid 1 mg/Sodium Chloride 1,011.2 mls @ 1,011.2 mls/hr IV .Q1H ONE Stop: 07/15/22 00:36 Last Infusion: 07/15/22 01:34 Dose: 0 mls/hr Documented By: Admin: 07/15/22 00:34 Dose: 1,011.2 mls/hr Documented By: WILLIE Magnesium Sulfate/Dextrose (Magnesium Sulfate / D5w) 1 gm in 100 mls @ 200 mls/hr IV Q30M [facility] Stop: 07/15/22 02:01 Last Infusion: 07/15/22 04:55 Dose: 0 mls/hr Documented By: Admin: 07/15/22 02:36 Dose: 200 mls/hr Documented By: Infusion: 07/15/22 02:28 Dose: 200 mls/hr Documented By: Admin: 07/15/22 01:58 Dose: 200 mls/hr Documented By: WILLIE Potassium Chloride (K Neville / Wtr) 10 meq in 100 mls @ 100 mls/hr IV Q1H [facility]; Protocol Stop: 07/15/22 03:14 Last Infusion: 07/15/22 06:19 Dose: 0 mls/hr Documented By: Admin: 07/15/22 03:58 Dose: 100 mls/hr Documented By: Infusion: 07/15/22 02:53 Dose: 100 mls/hr Documented By: Admin: 07/15/22 01:53 Dose: 100 mls/hr Documented By: WILLIE Potassium Chloride (K Neville / Wtr) 10 meq in 100 mls @ 100 mls/hr IV Q1H [facility]; Protocol Stop: 07/15/22 05:14 Last Infusion: 07/15/22 07:55 Dose: 0 mls/hr Documented By: Admin: 07/15/22 06:02 Dose: 100 mls/hr Documented By: Infusion: 07/15/22 05:56 Dose: 100 mls/hr Documented By: Admin: 07/15/22 04:56 Dose: 100 mls/hr Documented By: LEONARD Potassium Phosphate 30 mmol/ (Sodium Chloride) 510 mls @ 100 mls/hr IV ONE ONE Stop: 07/15/22 06:20 Last Infusion: 07/15/22 07:56 Dose: 0 mls/hr Documented By: Admin: 07/15/22 01:53 Dose: 100 mls/hr Documented By: WILLIE Pantoprazole Sodium 80 mg/ (Dextrose) 120 mls @ 480 mls/hr IV NOW STA Stop: 07/15/22 03:43 Last Infusion: 07/15/22 05:27 Dose: 0 mls/hr Documented By: Admin: 07/15/22 04:01 Dose: 480 mls/hr Documented By: LEONARD Pantoprazole Sodium 40 mg/ (Dextrose) 100 mls @ 20 mls/hr IV Q5H [facility] Stop: 08/14/22 03:59 Last Admin: 07/16/22 05:20 Dose: 8 mg/hr, 20 mls/hr Documented By: Infusion: 07/16/22 05:20 Dose: 8 mg/hr, 20 mls/hr Documented By: Admin: 07/16/22 02:05 Dose: 8 mg/hr, 20 mls/hr Documented By: Infusion: 07/16/22 01:22 Dose: 8 mg/hr, 20 mls/hr Documented By: Admin: 07/15/22 20:22 Dose: 8 mg/hr, 20 mls/hr Documented By: Infusion: 07/15/22 19:28 Dose: 8 mg/hr, 20 mls/hr Documented By: Admin: 07/15/22 14:28 Dose: 8 mg/hr, 20 mls/hr Documented By: Infusion: 07/15/22 14:28 Dose: 8 mg/hr, 20 mls/hr Documented By: Infusion: 07/15/22 11:28 Dose: 8 mg/hr, 20 mls/hr Documented By: Infusion: 07/15/22 09:23 Dose: 0 mg/hr, 0 mls/hr Documented By: Admin: 07/15/22 08:09 Dose: 8 mg/hr, 20 mls/hr Documented By: Infusion: 07/15/22 08:09 Dose: 8 mg/hr, 20 mls/hr Documented By: Admin: 07/15/22 04:02 Dose: 8 mg/hr, 20 mls/hr Documented By: LEONARD Dextrose (D5w) 1,000 mls @ 100 mls/hr IV .Q10H ONE Stop: 07/15/22 17:04 Last Infusion: 07/15/22 18:33 Dose: 0 mls/hr Documented By: Infusion: 07/15/22 14:08 Dose: 100 mls/hr Documented By: Infusion: 07/15/22 11:28 Dose: 50 mls/hr Documented By: Infusion: 07/15/22 09:25 Dose: 0 mls/hr Documented By: Admin: 07/15/22 08:09 Dose: 50 mls/hr Documented By: ALBINO Desmopressin Acetate 1 mcg/ (Sodium Chloride) 50.25 mls @ 100 mls/hr IV ONE STA Stop: 07/15/22 17:31 Last Infusion: 07/15/22 18:29 Dose: 0 mls/hr Documented By: Admin: 07/15/22 17:48 Dose: 100 mls/hr Documented By: ALBINO Sodium Phosphate 30 mmol/ (Sodium Chloride) 510 mls @ 88 mls/hr IV ONE ONE Stop: 07/16/22 13:47 Last Admin: 07/16/22 10:38 Dose: Not Given Documented By: RAYMOND Ioversol (Optiray 350 100ml) 100 ml IV ONCE ONE Stop: 07/15/22 01:51 Last Admin: 07/15/22 01:51 Dose: 84 ml Documented By: DESI Lorazepam (Lorazepam 2 Mg/1 Ml Vial) 1 mg IV NOW STA Stop: 07/14/22 23:35 Last Admin: 07/15/22 00:07 Dose: 1 mg Documented By: WILLIE Multivitamins (Multivitamin Tab) 1 tab PO QAM [facility] Stop: 08/15/22 08:59 Last Admin: 07/16/22 08:34 Dose: 1 tab Documented By: RAYMOND Nicotine (Nicotine 21 Mg/24 Hr Tdsy) 21 mg TD QAM [facility] Stop: 08/15/22 08:59 Last Admin: 07/16/22 08:34 Dose: 21 mg Documented By: RAYMOND Nicotine (Nicotine 21 Mg/24 Hr Tdsy) 21 mg TD NOW STA Stop: 07/15/22 02:33 Last Admin: 07/15/22 02:49 Dose: 21 mg Documented By: WILLIE Potassium Chloride (Potassium Chloride Pwd 20 Meq Pack) 40 meq PO NOW STA Stop: 07/15/22 02:11 Last Admin: 07/15/22 03:57 Dose: 40 meq Documented By: LEONARD Potassium Phosphate (Potassium Phos 3 Mmol/1 Ml Infusion) 30 mmol IV NOW STA Stop: 07/15/22 01:05 Last Admin: 07/15/22 01:46 Dose: Not Given Documented By: WILLIE Thiamine HCl (Thiamine Hcl 100 Mg Tab) 100 mg PO QAM [facility] Stop: 08/15/22 08:59 Last Admin: 07/16/22 08:34 Dose: 100 mg Documented By: RAYMOND Description This is a 21 electrode EEG with a single channel dedicated to limited EKG. The electrodes were placed in accordance with the International 10-20 system. REPORT: At the onset of the EEG the patient is drowsy. The background predominantly consist of generalized theta activity with some intermittent delta activity. No stage II sleep transients are seen. Photic stimulation does not induce any abnormalities. Interpretation IMPRESSION: This is a normal drowsy EEG. No epileptiform discharges are seen. A repeat EEG when patient is more alert may be beneficial to better characterize awake background.
== END 2022-07-16 10:00 | disposition home or self-care (01) | DRG 897 ==
LOC: ED 23:17 → 2S 07-15 02:17

== ENCOUNTER 2022-12-04 21:23 | Inpatient (IN) ==
[2022-12-04] MEDS ORDERED: THIAMINE HCL 100 MG, FOLIC ACID 1 MG in SODIUM CHLORIDE 0.9% 1000ML 1,000 ML IV STA (22:01)
[2022-12-04] MEDS ORDERED: CEROVITE ADV FORMULA TAB PO STA (22:01)
[2022-12-04 22:43] LABS: Basophils # (auto) 0.04 K/uL (0-0.2); Basophils % (auto) 0.4 %; Eosinophils # (auto) 0.09 K/uL (0-0.50); Eosinophils % (auto) 0.9 %; Hematocrit (blood only) 29.3 % (42.0-52.0); Immature Granulocytes # (auto) 0.03 K/uL (0.01-0.20); Immature Granulocytes % (auto) 0.3 %; Lymphocytes % (auto) 23.2 %; Mean Corpuscular Hemoglobin 36.9 pg (25.0-34.0); Mean Corpuscular Hgb Conc 37.5 g/dL (32.0-36.0); Mean Corpuscular Volume 98.3 fL (80.0-100.0); Mean Platelet Volume 10.9 fL (9.4-12.4); Monocytes # (auto) 1.16 K/uL (0.11-0.59); Monocytes % (auto) 12.2 %; Neutrophils # (auto) 5.97 K/uL (1.40-6.50); Platelet Count 172 K/uL (130-400); RDW Coefficient of Variation 12.6 % (11.5-14.5); RDW Standard Deviation 45.1 fL (36.4-46.3); Red Blood Count 2.98 M/uL (4.70-6.10); White Blood Count 9.49 K/ul (4.8-10.8)
[2022-12-04 22:54] LABS: Alanine Aminotransferase 43 U/L (7-52); Albumin Level 2.6 gm/dl (3.4-5.0); Alkaline Phosphatase 453 U/L (34-104); Anion Gap 8 (3-11); Aspartate Aminotransferase 121 U/L (13-39); BUN Creatinine Ratio 8.7 (10-20); Bilirubin Direct 3.3 mg/dl (0-0.2); Bilirubin,Total 5.6 mg/dl (0.2-1.0); Blood Urea Nitrogen 4 mg/dl (6-23); Carbon Dioxide 24 mmol/L (21-32); Chloride 83 mmol/L (98-107); Creatinine Clr Calc Pharmacy 201.6 ml/min; Est GFR (African American) > 150.0 ml/min; Est GFR (Non-African American) 141.3 ml/min; Glucose 82 mg/dl (70-99(Fasting)); Lipase 16 U/L (11-82); Potassium 3.5 mmol/L (3.5-5.1); Sodium 115 mmol/L (136-145); Total Protein 6.4 gm/dl (6.0-8.3)
[2022-12-04 23:17] LABS: Lyme Ab IgG w/WB Rflx Negative (Negative); Lyme Ab IgM w/WB Rflx Negative (Negative)
[2022-12-04] MEDS ORDERED: OPTIRAY 320 100ml IV ONE (23:40)
[2022-12-05] MEDS ORDERED: STAT IV STA (00:05)
[2022-12-05] MEDS ORDERED: SODIUM CHLORIDE 3 % 150 ML IV ONE (00:05)
[2022-12-05 00:19] LABS: iSTAT Blood Urea Nitrogen < 3 mg/dl (7-18); iSTAT Carbon Dioxide 21 mmol/L (24-31); iSTAT Chloride 83 mmol/L (101-112); iSTAT Creatinine 0.5 mg/dl (0.6-1.3); iSTAT Glucose 76 mg/dl (70-99); iSTAT Hematocrit 33 % (42-52); iSTAT Hemoglobin 11.2 g/dl (14.0-18.0); iSTAT Ionized Calcium 0.95 mmol/l (1.12-1.32); iSTAT Potassium 3.5 mmol/L (3.3-5.0); iSTAT Sodium 117 mmol/L (135-144)
[2022-12-05 00:24] LABS: INR 1.4 (0.9-1.1); Prothrombin Time 15.1 Seconds (9.0-12.0)
[2022-12-05 00:51] LABS: Appearance Urine Clear (Clear); Bilirubin Urine Negative (Negative); Blood Urine Negative (Negative); Color Urine Yellow; Glucose Urine UA Negative (Negative); Ketones Urine Negative (Negative); Leukocyte Esterase Urine Negative (Negative); Nitrite Urine Negative (Negative); Protein Urine Negative (Negative); Specific Gravity Urine 1.019 (1.000-1.030); Urobilinogen Urine Negative (Negative); pH Urine 6.5 (4.5-7.5)
--- NOTE | 2022-12-05 01:07 | Emergency Department Note ---
ED Provider Note History of Present Illness Chief Complaint: Abdominal Pain Stated Complaint: ABDOMINAL PAIN Time Seen by Provider: 12/04/22 21:36 Source: patient Mode of arrival: ambulatory Limitations: no limitations This patient is a 37-year-old male who presents to the emergency department for evaluation of abdominal discomfort/bloating. Patient states that this has been ongoing for the past 5 weeks. He states that when he wakes up in the morning, he feels okay but by the end of the day his abdomen is very distended and bloated. He states this is uncomfortable. He does note that he was recently bit by 2 ticks, 1 on the abdomen and 1 on the right upper thigh and these wounds have not fully healed. Patient reports a history of alcohol use but states he has only been having 1-2 drinks a night over the past few months. Prior to that he was drinking 6-12 beers nightly. He does report some jaundice. He denies any fever/chills. 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 [facility] (closed head injury) Chronic hyponatremia Hepatitis Hyponatremia Chronic Seizure EtOH withdrawal Thrombocytopenia Tobacco use Surgical History No pertinent past surgical history Family History Other Multiple myeloma Social History Smoking Status: Current every day smoker Tobacco Type: Cigarettes Cigarettes Per Day: pack a day; Second Hand Exposure: Yes; Do You Dip or Chew Tobacco: No; Hx Alcohol Use: Yes Alcohol type: beer Hx Substance Use: No Preferred Language: Maldivian Communication Ability: Effective Hearing Ability: Normal [place] Required: No Beliefs That Will Affect Care: None marital status: Single Current Living Situation: Alone current occupational status: employed Feels Safe at Home: Yes Assistive Devices: None Physical Exam Vital Signs Vital Signs - 24 hr 12/04/22 21:24 12/04/22 22:15 12/04/22 22:24 Temperature 36.6 C Temperature Source Temporal Artery Scan Pulse Rate 104 H 98 H Pulse Rate [Apical] 98 H Respiratory Rate 18 18 18 Respiratory Effort / Characteristics Non-Labored Respiratory Depth Normal Blood Pressure 135/86 Blood Pressure [Right Arm] 137/92 Blood Pressure Mean 102 Blood Pressure Mean [Right Arm] 107 Blood Pressure Position [Right Arm] Lying Pulse Oximetry 100 100 100 Oxygen Delivery Method Room Air Room Air Room Air Sepsis Recent Fever Within 48 Hours No Sepsis New/Unexplained Change in Mental Status No Sepsis Action Taken by Nursing No Action Required 12/04/22 23:42 12/05/22 00:42 Temperature Temperature Source Pulse Rate 79 78 Pulse Rate [Apical] Respiratory Rate 16 17 Respiratory Effort / Characteristics Respiratory Depth Blood Pressure 137/92 150/100 H Blood Pressure [Right Arm] Blood Pressure Mean 107 132 Blood Pressure Mean [Right Arm] Blood Pressure Position [Right Arm] Pulse Oximetry 99 99 Oxygen Delivery Method Sepsis Recent Fever Within 48 Hours Sepsis New/Unexplained Change in Mental Status Sepsis Action Taken by Nursing VITALS: Vitals are noted on the nurse's note and reviewed by myself. GENERAL: This is a 37-year-old male, in no acute distress, chronically ill- appearing. SKIN: Small ulcerated lesions noted to the right mid abdomen and to the right upper medial thigh. EARS: External auditory canals clear, tympanic membranes pearly rosenthal without erythema or effusion bilaterally. EYES: Pupils equal round and reactive to light and accommodation. Scleral icterus noted. MOUTH: Mucous membranes moist. HEART: Regular rate and rhythm without murmurs gallops or rubs. LUNGS: Clear to auscultation bilaterally without wheezes, rales or rhonchi. ABDOMEN: Abdomen is distended and diffusely, mildly tender. NEURO: Patient was alert and oriented to person place and time. Course Administered Medications Folic Acid (Folic Acid 1 Mg Tab) 1 mg PO QAM [facility] Stop: 01/04/23 08:59 Last Admin: 12/07/22 07:39 Dose: 1 mg Documented By: Admin: 12/06/22 09:46 Dose: 1 mg Documented By: Admin: 12/05/22 08:04 Dose: 1 mg Documented By: SCOTT Lorazepam (Lorazepam 2 Mg/1 Ml Vial) 0.5 mg IV Q6H PRN PRN Reason: Anxiety Stop: 01/04/23 02:29 Last Admin: 12/06/22 22:48 Dose: 0.5 mg Documented By: Admin: 12/05/22 17:45 Dose: 0.5 mg Documented By: SCOTT Miscellaneous (Remove Nicoderm Patch) 1 each N/A DAILY@0859 [facility] Stop: 01/04/23 08:58 Last Admin: 12/07/22 07:39 Dose: 1 each Documented By: Admin: 12/06/22 09:46 Dose: 1 each Documented By: Admin: 12/05/22 08:04 Dose: 1 each Documented By: SCOTT Multivitamins (Multivitamin Tab) 1 tab PO DAILY [facility] Stop: 01/04/23 08:59 Last Admin: 12/07/22 07:40 Dose: 1 tab Documented By: Admin: 12/06/22 09:46 Dose: 1 tab Documented By: Admin: 12/05/22 08:04 Dose: 1 tab Documented By: SCOTT Nicotine (Nicotine 21 Mg/24 Hr Tdsy) [facility] [place] Stop: 01/04/23 08:59 Last Admin: 12/07/22 07:39 Dose: 21 mg Documented By: Admin: 12/06/22 09:46 Dose: 21 mg Documented By: Admin: 12/05/22 08:04 Dose: 21 mg Documented By: SCOTT Oxycodone HCl (Oxycodone Hcl Ir 5 Mg Tab (Immediate Release)) 5 - 10 mg PO QID PRN PRN Reason: Pain Stop: 12/19/22 02:29 Last Admin: 12/07/22 14:06 Dose: 10 mg Documented By: Admin: 12/06/22 19:55 Dose: 10 mg Documented By: Admin: 12/05/22 22:50 Dose: 10 mg Documented By: Admin: 12/05/22 13:43 Dose: 10 mg Documented By: SCOTT Potassium Chloride (Potassium Chloride Crtab 20 Meq Tabcr) 20 meq PO BID MEMO Stop: 01/06/23 20:59 Last Admin: 12/07/22 19:29 Dose: 20 meq Documented By: ALISON Thiamine HCl (Thiamine Hcl 100 Mg Tab) 100 mg PO QAM [facility] Stop: 01/04/23 08:59 Last Admin: 12/07/22 07:40 Dose: 100 mg Documented By: Admin: 12/06/22 09:46 Dose: 100 mg Documented By: Admin: 12/05/22 08:04 Dose: 100 mg Documented By: SCOTT Discontinued Medications Furosemide (Furosemide Inj 20 Mg/2 Ml Vial) 10 mg IV Q3H STA Stop: 12/07/22 14:40 Last Admin: 12/07/22 14:59 Dose: 10 mg Documented By: GLORIA Thiamine HCl 100 mg/ Folic (Acid 1 mg/ Sodium Chloride) 1,001.2 mls @ 500 mls/hr IV .Q2H1M STA; Protocol Stop: 12/05/22 00:01 Last Infusion: 12/05/22 01:44 Dose: 0 mls/hr Documented By: Admin: 12/04/22 23:43 Dose: 500 mls/hr Documented By: ANGELINA Sodium Chloride (Hypertonic Saline 3%) 150 mls @ 450 mls/hr IV .Q20M ONE; Protocol Stop: 12/05/22 00:24 Last Infusion: 12/05/22 01:06 Dose: 0 mls/hr Documented By: ANGELINA Co-signed By: LUIS Admin: 12/05/22 00:38 Dose: 450 mls/hr Documented By: ANGELINA Co-signed By: IGNACIO Calcium Gluconate () 1,000 mg in 60 mls @ 240 mls/hr IV NOW STA Stop: 12/05/22 02:06 Last Infusion: 12/05/22 03:13 Dose: 0 mls/hr Documented By: Admin: 12/05/22 02:32 Dose: 240 mls/hr Documented By: ANGELINA Albumin Human (Albumin 25%) 25 gm in 100 mls @ 50 mls/hr IV Q2H MEMO Stop: 12/05/22 05:59 Last Infusion: 12/05/22 07:15 Dose: 0 mls/hr Documented By: Admin: 12/05/22 04:44 Dose: 50 mls/hr Documented By: Infusion: 12/05/22 04:44 Dose: 50 mls/hr Documented By: Admin: 12/05/22 02:47 Dose: 50 mls/hr Documented By: ANGELINA Ceftriaxone Sodium (Rocephin) 2,000 mg in 70 mls @ 140 mls/hr IV NOW STA Stop: 12/05/22 02:49 Last Admin: 12/05/22 03:46 Dose: Not Given Documented By: HH Albumin Human (Albumin 25%) 25 gm in 100 mls @ 50 mls/hr IV ONE ONE Stop: 12/05/22 04:19 Last Admin: 12/05/22 03:46 Dose: Not Given Documented By: Magnesium Sulfate/Dextrose (Magnesium Sulfate / D5w) 1 gm in 100 mls @ 50 mls/hr IV Q2H MEMO Stop: 12/05/22 06:59 Last Infusion: 12/05/22 08:04 Dose: 0 mls/hr Documented By: Admin: 12/05/22 05:30 Dose: 50 mls/hr Documented By: Infusion: 12/05/22 05:30 Dose: 50 mls/hr Documented By: Admin: 12/05/22 03:41 Dose: 50 mls/hr Documented By: ANGELINA Albumin Human (Albumin 25%) 25 gm in 100 mls @ 50 mls/hr IV Q8H [facility] Stop: 12/08/22 05:59 Last Admin: 12/05/22 07:16 Dose: Not Given Documented By: ALESHIA Dextrose (D5w) 500 mls @ 200 mls/hr IV .Q2H30M STA Stop: 12/05/22 13:35 Last Infusion: 12/05/22 13:44 Dose: 0 mls/hr Documented By: Admin: 12/05/22 11:46 Dose: 200 mls/hr Documented By: SCOTT Dextrose (D5w) 500 mls @ 200 mls/hr IV .Q2H30M MEMO Stop: 12/05/22 19:59 Last Infusion: 12/05/22 21:02 Dose: 0 mls/hr Documented By: AMAnnita Admin: 12/05/22 18:31 Dose: 200 mls/hr Documented By: SCOTT Dextrose (D5w) 1,000 mls @ 150 mls/hr IV .Q6H40M MEMO Stop: 12/07/22 07:44 Last Infusion: 12/07/22 09:34 Dose: 0 mls/hr Documented By: Admin: 12/07/22 02:35 Dose: 150 mls/hr Documented By: AMAnnita Infusion: 12/07/22 02:35 Dose: 150 mls/hr Documented By: AMAnnita Admin: 12/06/22 19:56 Dose: 150 mls/hr Documented By: Infusion: 12/06/22 19:56 Dose: 150 mls/hr Documented By: Infusion: 12/06/22 15:04 Dose: 150 mls/hr Documented By: Infusion: 12/06/22 14:00 Dose: 0 mls/hr Documented By: Admin: 12/06/22 12:12 Dose: 150 mls/hr Documented By: SCOTT Ioversol (Optiray 320 100ml) 90 ml IV ONCE ONE Stop: 12/04/22 23:41 Last Admin: 12/04/22 23:41 Dose: 90 ml Documented By: SPEEDY Multivitamins/Minerals (Cerovite Adv Formula Tab) 1 tab PO ONE STA Stop: 12/04/22 22:02 Last Admin: 12/04/22 22:22 Dose: 1 tab Documented By: QGV Nicotine (Nicotine 21 Mg/24 Hr Tdsy) 21 mg TD NOW STA Stop: 12/05/22 02:49 Last Admin: 12/05/22 03:40 Dose: 21 mg Documented By: ANGELINA Oxycodone HCl (Oxycodone Hcl Ir 5 Mg Tab (Immediate Release)) 5 mg PO NOW STA Stop: 12/05/22 02:21 Last Admin: 12/05/22 02:46 Dose: 5 mg Documented By: ANGELINA Potassium Chloride (Potassium Chloride Crtab 20 Meq Tabcr) 40 meq PO NOW STA Stop: 12/05/22 07:15 Last Admin: 12/05/22 08:03 Dose: 40 meq Documented By: SCOTT Potassium Chloride (Potassium Chloride Crtab 20 Meq Tabcr) 40 meq PO NOW STA Stop: 12/05/22 17:22 Last Admin: 12/05/22 17:48 Dose: 40 meq Documented By: SCOTT Potassium Chloride (Potassium Chloride Crtab 20 Meq Tabcr) 40 meq PO BID MEMO Stop: 01/04/23 20:59 Last Admin: 12/07/22 07:39 Dose: 40 meq Documented By: Admin: 12/06/22 19:55 Dose: 40 meq Documented By: Admin: 12/06/22 09:46 Dose: 40 meq Documented By: Admin: 12/05/22 21:02 Dose: 40 meq Documented By: TENNILLE Medical Decision Making Differential Diagnosis Appendicitis, testicular torsion, infections, diverticulitis, UTI, obstruction, mesenteric ischemia, aortic pathology, inflammatory bowel disease, renal colic, PUD, pancreatitis, biliary pathology, hernia, volvulus, constipation, as well as other pathologies. Home Medications was personally reviewed by me Laboratory Data Attestation: I reviewed the patient's lab results. 12/04/22 22:15 12/04/22 22:15 Lab Results 12/04/22 12/04/22 12/04/22 Range/Units 22:15 22:15 22:15 WBC 9.49 (4.8-10.8) K/ul RBC 2.98 L (4.70-6.10) M/uL Hgb 11.0 L (14.0-18.0) g/dl POC Hgb (14.0-18.0) g/dl Hct 29.3 L (42.0-52.0) % POC Hct (42-52) % MCV 98.3 (80.0-100.0) fL MCH 36.9 H (25.0-34.0) pg MCHC 37.5 H (32.0-36.0) g/dL RDW Std Deviation 45.1 (36.4-46.3) fL RDW Coeff of Randall 12.6 (11.5-14.5) % Plt Count 172 (130-400) K/uL MPV 10.9 (9.4-12.4) fL Immature Gran % (Auto) 0.3 % Neut % (Auto) 63.0 % Lymph % (Auto) 23.2 % [place] % (Auto) 12.2 % Eos % (Auto) 0.9 % Baso % (Auto) 0.4 % Neut # (Auto) 5.97 (1.40-6.50) K/uL Lymph # (Auto) 2.20 (1.2-3.4) K/uL [place] # (Auto) 1.16 H (0.11-0.59) K/uL Eos # (Auto) 0.09 (0-0.50) K/uL Baso # (Auto) 0.04 (0-0.2) K/uL Immature Gran # (Auto) 0.03 (0.01-0.20) K/uL PT (9.0-12.0) Seconds INR (0.9-1.1) POC Sodium (135-144) mmol/L Sodium 115 L* (136-145) mmol/L POC Potassium (3.3-5.0) mmol/L Potassium 3.5 (3.5-5.1) mmol/L POC Chloride (101-112) mmol/L Chloride 83 L (98-107) mmol/L Carbon Dioxide 24 (21-32) mmol/L POC Total CO2 (24-31) mmol/L Anion Gap 8 (3-11) POC Anion Gap (16-25) mmol/L POC BUN (7-18) mg/dl BUN 4 L (6-23) mg/dl Creatinine 0.46 L (0.6-1.4) mg/dl POC Creatinine (0.6-1.3) mg/dl Est Cr Clr Drug Dosing 201.6 ml/min Est GFR ( Amer) > 150.0 ml/min Est GFR (Non-Af Amer) 141.3 ml/min BUN/Creatinine Ratio 8.7 L (10-20) Glucose 82 (70-99(Fasting)) mg/dl POC Glucose (other) (70-99) mg/dl Osmolality (280-300) mOsm/kg Calcium 8.0 L (8.6-10.3) mg/dl POC Ioniz Calcium Hector (1.12-1.32) mmol/l Magnesium 1.5 L (1.7-2.4) mg/dl Total Bilirubin 5.6 H (0.2-1.0) mg/dl Direct Bilirubin 3.3 H (0-0.2) mg/dl AST 121 H (13-39) U/L ALT 43 (7-52) U/L Alkaline Phosphatase 453 H (34-104) U/L Total Protein 6.4 (6.0-8.3) gm/dl Albumin 2.6 L (3.4-5.0) gm/dl Lipase 16 (11-82) U/L TSH (0.300-4.500) uIu/ml Urine Color Urine Appearance (Clear) Urine pH (4.5-7.5) Ur Specific [place] (1.000-1.030) Urine Protein (Negative) Urine Glucose (UA) (Negative) Urine Ketones (Negative) Urine Blood (Negative) Urine Nitrite (Negative) Urine Bilirubin (Negative) Urine Urobilinogen (Negative) Ur Leukocyte Esterase (Negative) Urine Osmolality (500-800) mOsm/kg Ur Random Sodium mmol/L Ethyl Alcohol mg/dL 79.5 H (<10.0) mg/dl Lyme Disease IgG Ab (Negative) Lyme Disease IgM Ab (Negative) SARS-CoV-2, RNA, NAAT (NEGATIVE) 12/04/22 12/04/22 12/04/22 Range/Units 22:15 22:15 22:15 WBC (4.8-10.8) K/ul RBC (4.70-6.10) M/uL Hgb (14.0-18.0) g/dl POC Hgb (14.0-18.0) g/dl Hct (42.0-52.0) % POC Hct (42-52) % MCV (80.0-100.0) fL MCH (25.0-34.0) pg MCHC (32.0-36.0) g/dL RDW Std Deviation (36.4-46.3) fL RDW Coeff of Randall (11.5-14.5) % Plt Count (130-400) K/uL MPV (9.4-12.4) fL Immature Gran % (Auto) % Neut % (Auto) % Lymph % (Auto) % [place] % (Auto) % Eos % (Auto) % Baso % (Auto) % Neut # (Auto) (1.40-6.50) K/uL Lymph # (Auto) (1.2-3.4) K/uL [place] # (Auto) (0.11-0.59) K/uL Eos # (Auto) (0-0.50) K/uL Baso # (Auto) (0-0.2) K/uL Immature Gran # (Auto) (0.01-0.20) K/uL PT 15.1 H (9.0-12.0) Seconds INR 1.4 H (0.9-1.1) POC Sodium (135-144) mmol/L Sodium (136-145) mmol/L POC Potassium (3.3-5.0) mmol/L Potassium (3.5-5.1) mmol/L POC Chloride (101-112) mmol/L Chloride (98-107) mmol/L Carbon Dioxide (21-32) mmol/L POC Total CO2 (24-31) mmol/L Anion Gap (3-11) POC Anion Gap (16-25) mmol/L POC BUN (7-18) mg/dl BUN (6-23) mg/dl Creatinine (0.6-1.4) mg/dl POC Creatinine (0.6-1.3) mg/dl Est Cr Clr Drug Dosing ml/min Est GFR ( Amer) ml/min Est GFR (Non-Af Amer) ml/min BUN/Creatinine Ratio (10-20) Glucose (70-99(Fasting)) mg/dl POC Glucose (other) (70-99) mg/dl Osmolality 258 L (280-300) mOsm/kg Calcium (8.6-10.3) mg/dl POC Ioniz Calcium Hector (1.12-1.32) mmol/l Magnesium (1.7-2.4) mg/dl Total Bilirubin (0.2-1.0) mg/dl Direct Bilirubin (0-0.2) mg/dl AST (13-39) U/L ALT (7-52) U/L Alkaline Phosphatase (34-104) U/L Total Protein (6.0-8.3) gm/dl Albumin (3.4-5.0) gm/dl Lipase (11-82) U/L TSH (0.300-4.500) uIu/ml Urine Color Urine Appearance (Clear) Urine pH (4.5-7.5) Ur Specific [place] (1.000-1.030) Urine Protein (Negative) Urine Glucose (UA) (Negative) Urine Ketones (Negative) Urine Blood (Negative) Urine Nitrite (Negative) Urine Bilirubin (Negative) Urine Urobilinogen (Negative) Ur Leukocyte Esterase (Negative) Urine Osmolality (500-800) mOsm/kg Ur Random Sodium mmol/L Ethyl Alcohol mg/dL (<10.0) mg/dl Lyme Disease IgG Ab Negative (Negative) Lyme Disease IgM Ab Negative (Negative) SARS-CoV-2, RNA, NAAT (NEGATIVE) 12/04/22 12/05/22 12/05/22 Range/Units 22:15 00:06 00:44 WBC (4.8-10.8) K/ul RBC (4.70-6.10) M/uL Hgb (14.0-18.0) g/dl POC Hgb 11.2 L (14.0-18.0) g/dl Hct (42.0-52.0) % POC Hct 33 L (42-52) % MCV (80.0-100.0) fL MCH (25.0-34.0) pg MCHC (32.0-36.0) g/dL RDW Std Deviation (36.4-46.3) fL RDW Coeff of Randall (11.5-14.5) % Plt Count (130-400) K/uL MPV (9.4-12.4) fL Immature Gran % (Auto) % Neut % (Auto) % Lymph % (Auto) % [place] % (Auto) % Eos % (Auto) % Baso % (Auto) % Neut # (Auto) (1.40-6.50) K/uL Lymph # (Auto) (1.2-3.4) K/uL [place] # (Auto) (0.11-0.59) K/uL Eos # (Auto) (0-0.50) K/uL Baso # (Auto) (0-0.2) K/uL Immature Gran # (Auto) (0.01-0.20) K/uL PT (9.0-12.0) Seconds INR (0.9-1.1) POC Sodium 117 L* (135-144) mmol/L Sodium (136-145) mmol/L POC Potassium 3.5 (3.3-5.0) mmol/L Potassium (3.5-5.1) mmol/L POC Chloride 83 L (101-112) mmol/L Chloride (98-107) mmol/L Carbon Dioxide (21-32) mmol/L POC Total CO2 21 L (24-31) mmol/L Anion Gap (3-11) POC Anion Gap 17.0 (16-25) mmol/L POC BUN < 3 L (7-18) mg/dl BUN (6-23) mg/dl Creatinine (0.6-1.4) mg/dl POC Creatinine 0.5 L (0.6-1.3) mg/dl Est Cr Clr Drug Dosing ml/min Est GFR ( Amer) ml/min Est GFR (Non-Af Amer) ml/min BUN/Creatinine Ratio (10-20) Glucose (70-99(Fasting)) mg/dl POC Glucose (other) 76 (70-99) mg/dl Osmolality (280-300) mOsm/kg Calcium (8.6-10.3) mg/dl POC Ioniz Calcium Hector 0.95 L (1.12-1.32) mmol/l Magnesium (1.7-2.4) mg/dl Total Bilirubin (0.2-1.0) mg/dl Direct Bilirubin (0-0.2) mg/dl AST (13-39) U/L ALT (7-52) U/L Alkaline Phosphatase (34-104) U/L Total Protein (6.0-8.3) gm/dl Albumin (3.4-5.0) gm/dl Lipase (11-82) U/L TSH 1.471 (0.300-4.500) uIu/ml Urine Color Yellow Urine Appearance Clear (Clear) Urine pH 6.5 (4.5-7.5) Ur Specific [place] 1.019 (1.000-1.030) Urine Protein Negative (Negative) Urine Glucose (UA) Negative (Negative) Urine Ketones Negative (Negative) Urine Blood Negative (Negative) Urine Nitrite Negative (Negative) Urine Bilirubin Negative (Negative) Urine Urobilinogen Negative (Negative) Ur Leukocyte Esterase Negative (Negative) Urine Osmolality (500-800) mOsm/kg Ur Random Sodium mmol/L Ethyl Alcohol mg/dL (<10.0) mg/dl Lyme Disease IgG Ab (Negative) Lyme Disease IgM Ab (Negative) SARS-CoV-2, RNA, NAAT (NEGATIVE) 12/05/22 12/05/22 12/05/22 Range/Units 00:44 00:44 01:04 WBC (4.8-10.8) K/ul RBC (4.70-6.10) M/uL Hgb (14.0-18.0) g/dl POC Hgb (14.0-18.0) g/dl Hct (42.0-52.0) % POC Hct (42-52) % MCV (80.0-100.0) fL MCH (25.0-34.0) pg MCHC (32.0-36.0) g/dL RDW Std Deviation (36.4-46.3) fL RDW Coeff of Randall (11.5-14.5) % Plt Count (130-400) K/uL MPV (9.4-12.4) fL Immature Gran % (Auto) % Neut % (Auto) % Lymph % (Auto) % [place] % (Auto) % Eos % (Auto) % Baso % (Auto) % Neut # (Auto) (1.40-6.50) K/uL Lymph # (Auto) (1.2-3.4) K/uL [place] # (Auto) (0.11-0.59) K/uL Eos # (Auto) (0-0.50) K/uL Baso # (Auto) (0-0.2) K/uL Immature Gran # (Auto) (0.01-0.20) K/uL PT (9.0-12.0) Seconds INR (0.9-1.1) POC Sodium (135-144) mmol/L Sodium (136-145) mmol/L POC Potassium (3.3-5.0) mmol/L Potassium (3.5-5.1) mmol/L POC Chloride (101-112) mmol/L Chloride (98-107) mmol/L Carbon Dioxide (21-32) mmol/L POC Total CO2 (24-31) mmol/L Anion Gap (3-11) POC Anion Gap (16-25) mmol/L POC BUN (7-18) mg/dl BUN (6-23) mg/dl Creatinine (0.6-1.4) mg/dl POC Creatinine (0.6-1.3) mg/dl Est Cr Clr Drug Dosing ml/min Est GFR ( Amer) ml/min Est GFR (Non-Af Amer) ml/min BUN/Creatinine Ratio (10-20) Glucose (70-99(Fasting)) mg/dl POC Glucose (other) (70-99) mg/dl Osmolality (280-300) mOsm/kg Calcium (8.6-10.3) mg/dl POC Ioniz Calcium Hector (1.12-1.32) mmol/l Magnesium (1.7-2.4) mg/dl Total Bilirubin (0.2-1.0) mg/dl Direct Bilirubin (0-0.2) mg/dl AST (13-39) U/L ALT (7-52) U/L Alkaline Phosphatase (34-104) U/L Total Protein (6.0-8.3) gm/dl Albumin (3.4-5.0) gm/dl Lipase (11-82) U/L TSH (0.300-4.500) uIu/ml Urine Color Urine Appearance (Clear) Urine pH (4.5-7.5) Ur Specific [place] (1.000-1.030) Urine Protein (Negative) Urine Glucose (UA) (Negative) Urine Ketones (Negative) Urine Blood (Negative) Urine Nitrite (Negative) Urine Bilirubin (Negative) Urine Urobilinogen (Negative) Ur Leukocyte Esterase (Negative) Urine Osmolality 134 L (500-800) mOsm/kg Ur Random Sodium < 10 mmol/L Ethyl Alcohol mg/dL (<10.0) mg/dl Lyme Disease IgG Ab (Negative) Lyme Disease IgM Ab (Negative) SARS-CoV-2, RNA, NAAT NEGATIVE (NEGATIVE) Imaging Data Attestation: I personally reviewed and interpreted this imaging study as follows: Radiologist's Impression: Abdomen/Pelvis CT 12/04/22 21:59 Exam(s): CT ABDOMEN + PELVIS With Contrast IV Amt: 92ml Optiray 320 EXAM: CT Abdomen and Pelvis With Intravenous Contrast CLINICAL HISTORY: Reason for exam: abdominal pain, bloating, hx alcoholism. TECHNIQUE: Axial computed tomography images of the abdomen and pelvis with intravenous contrast. CTDI is 20.36 mGy and DLP is 1115.01 mGy-cm. Automated exposure control was utilized for the study. A dose lowering technique was utilized adhering to the principles of ALARA. CONTRAST: Patient received 92ml Optiray 320 of IV contrast COMPARISON: 07/15/2022 FINDINGS: Mediastinum: Small hiatal hernia. ABDOMEN: Liver: Cirrhotic liver. Gallbladder and bile ducts: Unremarkable. Pancreas: Unremarkable. Spleen: Unremarkable. Adrenals: Unremarkable. Kidneys and ureters: Unremarkable. No obstructing stones. No hydronephrosis. Stomach and bowel: Mucosal thickening along the GI tract secondary to portal hypertension. PELVIS: Appendix: No findings to suggest acute appendicitis. Bladder: Unremarkable. Reproductive: Unremarkable as visualized. ABDOMEN and PELVIS: Intraperitoneal space: Large volume ascites. No free air. Bones/joints: No acute fracture. Soft tissues: Unremarkable. Vasculature: Portosystemic varices including esophageal varices. Lymph nodes: Unremarkable. IMPRESSION: 1. Cirrhotic liver. 2. Large volume ascites. 3. Portosystemic varices including esophageal varices. 4. Mucosal thickening along the GI tract secondary to portal hypertension. 5. Small hiatal hernia. Electronically signed by: Dano Quach MD 12/05/22 01:24 AM MDM Narrative Continuous school bus monitor: Order was placed for continuous school bus monitor. Patient was placed on the school bus monitor. Patient was noted to be in normal sinus rhythm at an initial rate of 95 bpm. The patient is a 37-year-old male who presents today complaining of abdominal bloating. Patient with known history of alcoholism and cirrhosis. Abdomen is distended on exam. CT scan showed large volume ascites. Labs revealed hyponatremia, elevated LFTs. Patient initially treated with a banana bag. Patient was evaluated by Dr. Rodriguez who performed a paracentesis. He then ordered hypertonic saline and albumin. Case was discussed with the neuro hospitalist service, who agreed to evaluate the patient for further care. Impression Abdominal ascites, Jaundice, Alcohol dependence Discharge Plan Visit Data Chief Complaint: Abdominal Pain Stated Complaint: ABDOMINAL PAIN ED Provider: Magno Mcgovern ED Midlevel Provider: Dayan Mehta Discharge Problem: Abdominal ascites, Jaundice, Alcohol dependence Patient Disposition: Admitted As Inpatient Discharge Instructions Interventions: ED Discharge Assessment Last Done: 12/05/22 03:56
--- NOTE | 2022-12-05 01:25 | CT Scan Report ---
Exam(s): CT ABDOMEN + PELVIS With Contrast IV Amt: 92ml Optiray 320 EXAM: CT Abdomen and Pelvis With Intravenous Contrast CLINICAL HISTORY: Reason for exam: abdominal pain, bloating, hx alcoholism. TECHNIQUE: Axial computed tomography images of the abdomen and pelvis with intravenous contrast. CTDI is 20.36 mGy and DLP is 1115.01 mGy-cm. Automated exposure control was utilized for the study. A dose lowering technique was utilized adhering to the principles of ALARA. CONTRAST: Patient received 92ml Optiray 320 of IV contrast COMPARISON: 07/15/2022 FINDINGS: Mediastinum: Small hiatal hernia. ABDOMEN: Liver: Cirrhotic liver. Gallbladder and bile ducts: Unremarkable. Pancreas: Unremarkable. Spleen: Unremarkable. Adrenals: Unremarkable. Kidneys and ureters: Unremarkable. No obstructing stones. No hydronephrosis. Stomach and bowel: Mucosal thickening along the GI tract secondary to portal hypertension. PELVIS: Appendix: No findings to suggest acute appendicitis. Bladder: Unremarkable. Reproductive: Unremarkable as visualized. ABDOMEN and PELVIS: Intraperitoneal space: Large volume ascites. No free air. Bones/joints: No acute fracture. Soft tissues: Unremarkable. Vasculature: Portosystemic varices including esophageal varices. Lymph nodes: Unremarkable. IMPRESSION: 1. Cirrhotic liver. 2. Large volume ascites. 3. Portosystemic varices including esophageal varices. 4. Mucosal thickening along the GI tract secondary to portal hypertension. 5. Small hiatal hernia. Electronically signed by: Dano Quach MD 12/05/22 01:24 AM
[2022-12-05] MEDS ORDERED: CALCIUM GLUCONATE 1,000 MG/60 ML BAG IV STA (01:52)
--- NOTE | 2022-12-05 02:01 | Emergency Department Note ---
ED Visit Note I evaluated the patient with the physician timber management assistant, Dayan Mehta. The patient states having abdominal pain and associated ascites. Procedures listed below for the paracentesis that was performed. Written consent was obtained. Procedure note: Paracentesis: See below . Procedures Paracentesis Time Out Performed: Yes Indication: possible spontaneous bacterial peritonitis Procedure: therapeutic paracentesis Location: RLQ Local Anesthetic: lidocaine 1% Amount of anesthesia used (mL): 10 Bedside Ultrasound Used: yes, real-time guidance Preparation: sterile prep and drape Fluid: clear and sent to lab for analysis Size of Needle Used: 18 Post Procedure Exam: awake, alert, normal BP, normal HR and normal SpO2 Patient Tolerated Procedure: well and no complications Complications: none
[2022-12-05 02:17] LABS: Magnesium 1.5 mg/dl (1.7-2.4)
[2022-12-05] MEDS ORDERED: ALBUMIN 25% 25 GM/100 ML VIAL IV ONE (02:20)
[2022-12-05] MEDS ORDERED: cefTRIAXone SODIUM 2,000 MG/70 ML BAG IV STA (02:20)
[2022-12-05] MEDS ORDERED: oxyCODONE HCL IR 5 MG TAB (IMMEDIATE RELEASE) PO STA (02:20)
--- NOTE | 2022-12-05 02:20 | History & Physical Report ---
Date of Service December 05, 2022 Assessment & Plan (1) Hyponatremia: Plan: Acute on chronic multifactorial : decompensated alcoholic cirrhosis, new diagnosis Beer potomania ascites secondary to alcoholic cirrhosis, transudative fluid character on analysis Alcoholic hepatitis, good prognosis with computed Maddrey's DF score of 27 hx SAH, intracranial aneurysm alcohol withdrawal seizures, no recent seizures as per patient emphysema, baseline pulmonary function ongoing alcohol/ tobacco abuse chronic anemia, hemoglobin at baseline episodic thrombocytopenia secondary to liver disease PCU given severe hyponatremia Recheck serum sodium after initial intervention at the ER Hyponatremia work-up, fluid restriction Nephrology consult Re: Acute on chronic hyponatremia GI consult Re: Decompensated alcoholic cirrhosis/new diagnosis DT precautions, initiate KENNY S if with signs of alcohol withdrawal Nicotine patch DVT prophylaxis. SCDs Re: history SAH Full code Text document was generated using [employer] voice recognition software. It may contain grammatical or spelling errors. Kindly contact undersigned for clarification of any documentation item in question. History of Present Illness Chief Complaint: Worsening abdominal distention Primary Care Provider: Dr. Albrecht Medical history significant for SAH, intracranial aneurysm, chronic hyponatremia, history alcohol withdrawal seizures, hepatic steatosis as per records, emphysema as per records, ongoing alcohol/ tobacco abuse, chronic anemia ( baseline hemoglobin 11), chronic thrombocytopenia. Last confinement June 2022 for alcohol withdrawal seizure. Hepatomegaly and hepatic steatosis on CT abdomen. Patient unable to follow-up with PCP and GI specialist following discharge. He went back to drinking shortly after discharge from the hospital. Last month, patient noted increasing abdominal distention accompanied by achy abdominal discomfort. No fever, no chills. No chest pain. No headache, no confusion. Unable to take a deep breath because of abdominal distention. Patient denies black, bloody stools. Patient consulted [facility] urgent care center last week. ER evaluation recommended but patient was not able to comply because he had to work. Patient noted worsening abdominal distention, bloating, and jaundice at home. At the ER, 5 L of albumin drained by ER provider followed by IV albumin administration. Banana bag and hypertonic saline administered at the ER for hyponatremia. 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 Allergies Allergy/AdvReac Type Severity Reaction Status Date / Time No Known Allergies Allergy Verified 12/04/22 22:16 Home Medications Medication Instructions Recorded Confirmed Type multivitamin 1 tab PO DAILY 12/04/22 12/04/22 History Past Med/Surg History Medical History Alcohol use Alcohol withdrawal Anemia CHI (closed head injury) Chronic hyponatremia Hepatitis Thrombocytopenia Tobacco use Surgical History No pertinent past surgical history Family History Other Multiple myeloma Social History Smoking Status: Current every day smoker Tobacco Type: Cigarettes Cigarettes Per Day: pack a day; Second Hand Exposure: Yes; Do You Dip or Chew Tobacco: No; Hx Alcohol Use: Yes Alcohol type: beer Hx Substance Use: No Preferred Language: Macanese Communication Ability: Effective Hearing Ability: Normal Provider Network Mgr Required: No Beliefs That Will Affect Care: None marital status: Single Current Living Situation: Alone current occupational status: employed Feels Safe at Home: Yes Assistive Devices: None Review of Systems Review of Systems: As per HPI, all other systems reviewed and negative Physical Exam Physical Exam: GENERAL: chronically ill, no respiratory distress SKIN: jaundice, warm HEENT: Pale palpebral conjunctivae, no ptosis, icteric sclerae, dry buccal mucosa NECK : Supple, no tenderness CHEST : Decreased breath sounds, no tenderness HEART : RRR, no obvious murmurs ABDOMEN: Some distention, nontender EXTREMITIES : Minimal LE swelling, no LE tenderness, no other conspicuous deformities noted NEUROLOGIC : coherent, no facial asymmetry, no other gross focality Results & Data Results & Data Vital Signs (Past 12 Hours) Vital Signs Temp Pulse Pulse Resp BP BP Pulse Ox 12/05/22 00:42 78 17 150/100 H 99 12/04/22 23:42 79 16 137/92 99 12/04/22 22:24 98 H 18 137/92 100 12/04/22 22:15 98 H 18 100 12/04/22 21:24 36.6 C 104 H 18 135/86 100 O2 Del Method 12/05/22 00:42 12/04/22 23:42 12/04/22 22:24 Room Air 12/04/22 22:15 Room Air 12/04/22 21:24 Room Air Laboratory Results Laboratory Results WBC 9.49 K/ul (4.8-10.8) 12/04/22 22:15 RBC 2.98 M/uL (4.70-6.10) L 12/04/22 22:15 Hgb 11.0 g/dl (14.0-18.0) L 12/04/22 22:15 POC Hgb 11.2 g/dl (14.0-18.0) L 12/05/22 00:06 Hct 29.3 % (42.0-52.0) L 12/04/22 22:15 POC Hct 33 % (42-52) L 12/05/22 00:06 MCV 98.3 fL (80.0-100.0) 12/04/22 22:15 MCH 36.9 pg (25.0-34.0) H 12/04/22 22:15 MCHC 37.5 g/dL (32.0-36.0) H 12/04/22 22:15 RDW Std Deviation 45.1 fL (36.4-46.3) 12/04/22 22:15 RDW Coeff of Randall 12.6 % (11.5-14.5) 12/04/22 22:15 Plt Count 172 K/uL (130-400) 12/04/22 22:15 MPV 10.9 fL (9.4-12.4) 12/04/22 22:15 Immature Gran % (Auto) 0.3 % 12/04/22 22:15 Neut % (Auto) 63.0 % 12/04/22 22:15 Lymph % (Auto) 23.2 % 12/04/22 22:15 [place] % (Auto) 12.2 % 12/04/22 22:15 Eos % (Auto) 0.9 % 12/04/22 22:15 Baso % (Auto) 0.4 % 12/04/22 22:15 Neut # (Auto) 5.97 K/uL (1.40-6.50) 12/04/22 22:15 Lymph # (Auto) 2.20 K/uL (1.2-3.4) 12/04/22 22:15 [place] # (Auto) 1.16 K/uL (0.11-0.59) H 12/04/22 22:15 Eos # (Auto) 0.09 K/uL (0-0.50) 12/04/22 22:15 Baso # (Auto) 0.04 K/uL (0-0.2) 12/04/22 22:15 Immature Gran # (Auto) 0.03 K/uL (0.01-0.20) 12/04/22 22:15 PT 15.1 Seconds (9.0-12.0) H 12/04/22 22:15 INR 1.4 (0.9-1.1) H 12/04/22 22:15 POC Sodium 117 mmol/L (135-144) L* 12/05/22 00:06 Sodium 115 mmol/L (136-145) L* 12/04/22 22:15 POC Potassium 3.5 mmol/L (3.3-5.0) 12/05/22 00:06 Potassium 3.5 mmol/L (3.5-5.1) 12/04/22 22:15 POC Chloride 83 mmol/L (101-112) L 12/05/22 00:06 Chloride 83 mmol/L (98-107) L 12/04/22 22:15 Carbon Dioxide 24 mmol/L (21-32) 12/04/22 22:15 POC Total CO2 21 mmol/L (24-31) L 12/05/22 00:06 Anion Gap 8 (3-11) 12/04/22 22:15 POC Anion Gap 17.0 mmol/L (16-25) 12/05/22 00:06 POC BUN < 3 mg/dl (7-18) L 12/05/22 00:06 BUN 4 mg/dl (6-23) L 12/04/22 22:15 Creatinine 0.46 mg/dl (0.6-1.4) L 12/04/22 22:15 POC Creatinine 0.5 mg/dl (0.6-1.3) L 12/05/22 00:06 Est Cr Clr Drug Dosing 201.6 ml/min 12/04/22 22:15 Est GFR ( Amer) > 150.0 ml/min 12/04/22 22:15 Est GFR (Non-Af Amer) 141.3 ml/min 12/04/22 22:15 BUN/Creatinine Ratio 8.7 (10-20) L 12/04/22 22:15 Glucose 82 mg/dl (70-99(Fasting)) 12/04/22 22:15 POC Glucose (other) 76 mg/dl (70-99) 12/05/22 00:06 Osmolality 258 mOsm/kg (280-300) L 12/04/22 22:15 Calcium 8.0 mg/dl (8.6-10.3) L 12/04/22 22:15 POC Ioniz Calcium Hector 0.95 mmol/l (1.12-1.32) L 12/05/22 00:06 Magnesium 1.5 mg/dl (1.7-2.4) L 12/04/22 22:15 Total Bilirubin 5.6 mg/dl (0.2-1.0) H 12/04/22 22:15 Direct Bilirubin 3.3 mg/dl (0-0.2) H 12/04/22 22:15 AST 121 U/L (13-39) H 12/04/22 22:15 ALT 43 U/L (7-52) 12/04/22 22:15 Alkaline Phosphatase 453 U/L (34-104) H 12/04/22 22:15 Total Protein 6.4 gm/dl (6.0-8.3) 12/04/22 22:15 Albumin 2.6 gm/dl (3.4-5.0) L 12/04/22 22:15 Lipase 16 U/L (11-82) 12/04/22 22:15 Urine Color Yellow 12/05/22 00:44 Urine Appearance Clear (Clear) 12/05/22 00:44 Urine pH 6.5 (4.5-7.5) 12/05/22 00:44 Ur Specific [place] 1.019 (1.000-1.030) 12/05/22 00:44 Urine Protein Negative (Negative) 12/05/22 00:44 Urine Glucose (UA) Negative (Negative) 12/05/22 00:44 Urine Ketones Negative (Negative) 12/05/22 00:44 Urine Blood Negative (Negative) 12/05/22 00:44 Urine Nitrite Negative (Negative) 12/05/22 00:44 Urine Bilirubin Negative (Negative) 12/05/22 00:44 Urine Urobilinogen Negative (Negative) 12/05/22 00:44 Ur Leukocyte Esterase Negative (Negative) 12/05/22 00:44 Fluid Comment 12/05/22 Unknown Ethyl Alcohol mg/dL 79.5 mg/dl (<10.0) H 12/04/22 22:15 Lyme Disease IgG Ab Negative (Negative) 12/04/22 22:15 Lyme Disease IgM Ab Negative (Negative) 12/04/22 22:15 SARS-CoV-2, RNA, NAAT NEGATIVE (NEGATIVE) 12/05/22 01:04 Impressions Abdomen/Pelvis CT 12/04/22 21:59 Exam(s): CT ABDOMEN + PELVIS With Contrast IV Amt: 92ml Optiray 320 EXAM: CT Abdomen and Pelvis With Intravenous Contrast CLINICAL HISTORY: Reason for exam: abdominal pain, bloating, hx alcoholism. TECHNIQUE: Axial computed tomography images of the abdomen and pelvis with intravenous contrast. CTDI is 20.36 mGy and DLP is 1115.01 mGy-cm. Automated exposure control was utilized for the study. A dose lowering technique was utilized adhering to the principles of ALARA. CONTRAST: Patient received 92ml Optiray 320 of IV contrast COMPARISON: 07/15/2022 FINDINGS: Mediastinum: Small hiatal hernia. ABDOMEN: Liver: Cirrhotic liver. Gallbladder and bile ducts: Unremarkable. Pancreas: Unremarkable. Spleen: Unremarkable. Adrenals: Unremarkable. Kidneys and ureters: Unremarkable. No obstructing stones. No hydronephrosis. Stomach and bowel: Mucosal thickening along the GI tract secondary to portal hypertension. PELVIS: Appendix: No findings to suggest acute appendicitis. Bladder: Unremarkable. Reproductive: Unremarkable as visualized. ABDOMEN and PELVIS: Intraperitoneal space: Large volume ascites. No free air. Bones/joints: No acute fracture. Soft tissues: Unremarkable. Vasculature: Portosystemic varices including esophageal varices. Lymph nodes: Unremarkable. IMPRESSION: 1. Cirrhotic liver. 2. Large volume ascites. 3. Portosystemic varices including esophageal varices. 4. Mucosal thickening along the GI tract secondary to portal hypertension. 5. Small hiatal hernia. Electronically signed by: Dano Quach MD 12/05/22 01:24 AM Diagnostic Findings Chest x-ray as per my interpretation atelectasis
[2022-12-05 02:21] LABS: Appearance Peritoneal Fluid Clear; Color Peritoneal Fluid Yellow; RBC Peritoneal Fluid Auto < 2000 /uL; WBC Peritoneal Fluid Auto 72 /ul (0-300)
[2022-12-05 02:28] LABS: Albumin Peritoneal Fluid < 1.5 gm/dl; Amylase Peritoneal Fluid < 10 U/L
[2022-12-05] MEDS ORDERED: PROMETHAZINE HCL 6.25 MG in SODIUM CHLORIDE 0.9% 50 ML IV PRN (02:30)
[2022-12-05] MEDS ORDERED: ACETAMINOPHEN 500 MG TAB PO PRN (02:30)
[2022-12-05] MEDS ORDERED: MoRPHine SULFATE 2 MG/ML CARP IV PRN (02:30)
[2022-12-05 02:34] LABS: Glucose Peritoneal Fluid 100 mg/dl; LDH Peritoneal Fluid 31 U/L; Lipase Peritoneal Fluid 19 U/L; Total Protein Peritoneal Fluid < 3.0 gm/dl
[2022-12-05] MEDS: ALBUMIN 25% 25 GM/100 ML VIAL IV SCH ×2 (02:47→04:44)
[2022-12-05] MEDS ORDERED: NICOTINE 21 MG/24 HR TDSY TD STA (02:48)
[2022-12-05 03:01] LABS: Eosinophils, Fluid 1 %; Lymphocytes, Fluid 10 %; Mono,Macrophage,Mesothelial 84 %; Neutrophils, Fluid 5 %
[2022-12-05] MEDS: MAGNESIUM SULFATE / D5W 1 GM/100 ML BAG IV SCH ×2 (03:41→05:30)
[2022-12-05 05:26] LABS: Albumin Level 2.6 gm/dl (3.4-5.0); Anion Gap 8 (3-11); Bilirubin,Total 4.3 mg/dl (0.2-1.0); Calcium 8.1 mg/dl (8.6-10.3); Carbon Dioxide 22 mmol/L (21-32); Chloride 92 mmol/L (98-107); Potassium 3.4 mmol/L (3.5-5.1); Sodium 122 mmol/L (136-145)
[2022-12-05 05:32] LABS: Alanine Aminotransferase 33 U/L (7-52); Albumin Globulin Ratio 0.9 (0.9-2); Alkaline Phosphatase 330 U/L (34-104); Aspartate Aminotransferase 91 U/L (13-39); BUN Creatinine Ratio 7.5 (10-20); Blood Urea Nitrogen 3 mg/dl (6-23); Creatinine Clr Calc Pharmacy 224.4 ml/min; Est GFR (African American) > 150.0 ml/min; Est GFR (Non-African American) 149.6 ml/min; Glucose 79 mg/dl (70-99(Fasting)); Total Protein 5.6 gm/dl (6.0-8.3)
[2022-12-05] MEDS ORDERED: ALBUMIN 25% 25 GM/100 ML VIAL IV SCH (06:00)
--- NOTE | 2022-12-05 07:10 | XRay Report ---
XR chest 1V portable HISTORY: 37 years-old Male hyponatremia COMPARISON: 07/15/2022 TECHNIQUE: AP view of the chest FINDINGS: Cardiomediastinal and hilar silhouettes are within normal limits. No pneumothorax, pleural effusion, airspace consolidation or pulmonary edema. Mild linear subsegmental right basilar atelectasis versus scarring. Bones of the chest appear grossly intact. IMPRESSION: No acute process. ACT 112: Negative or not required by law. The above report was generated using voice recognition software. It may contain grammatical, syntax o r spelling errors. Electronically signed by: Esa Cruz M.D. 12/05/2022 7:09 AM
[2022-12-05] MEDS ORDERED: POTASSIUM CHLORIDE CRTAB 20 MEQ TABCR PO STA ×2 (07:14→17:21)
[2022-12-05 07:46] LABS: Hematocrit (blood only) 25.2 % (42.0-52.0); Hemoglobin 9.5 g/dl (14.0-18.0); Mean Corpuscular Hgb Conc 37.7 g/dL (32.0-36.0); Mean Corpuscular Volume 98.1 fL (80.0-100.0); Mean Platelet Volume 10.4 fL (9.4-12.4); Platelet Count 142 K/uL (130-400); RDW Coefficient of Variation 12.3 % (11.5-14.5); RDW Standard Deviation 44.5 fL (36.4-46.3); Red Blood Count 2.57 M/uL (4.70-6.10); White Blood Count 7.85 K/ul (4.8-10.8)
[2022-12-05 07:54] LABS: Basophils # (auto) 0.05 K/uL (0-0.2); Basophils % (auto) 0.6 %; Echinocytes 1+; Eosinophils # (auto) 0.15 K/uL (0-0.50); Eosinophils % (auto) 1.9 %; Immature Granulocytes # (auto) 0.02 K/uL (0.01-0.20); Immature Granulocytes % (auto) 0.3 %; Lymphocytes # (auto) 1.57 K/uL (1.2-3.4); Monocytes # (auto) 1.14 K/uL (0.11-0.59); Monocytes % (auto) 14.5 %; Neutrophils # (auto) 4.92 K/uL (1.40-6.50); Neutrophils % (auto) 62.7 %; Target Cells 1+
[2022-12-05] MEDS: FOLIC ACID 1 MG TAB PO SCH (08:04)
[2022-12-05] MEDS: THIAMINE HCL 100 MG TAB PO SCH (08:04)
[2022-12-05] MEDS: MULTIVITAMIN TAB PO SCH (08:04)
[2022-12-05] MEDS: NICOTINE 21 MG/24 HR TDSY TD SCH (08:04)
--- NOTE | 2022-12-05 10:15 | Gastrointestinal Consultation ---
Date of Consultation December 05, 2022 Assessment & Plan (1) Decompensation of cirrhosis of liver: -Patient s/p paracentesis with 5.5 L of ascitic fluid removed with a SAAG consistent with portal hypertension. Monitor volume status. Limit Na intake to 2000 mg daily. Could consider implementation of diuretic therapy with Lasix & Aldactone at a ratio of 40:100 mg if patient continues to struggle with volume status, however patient is noted to have hyponatremia for which he has seen nephrology. -Recommend Alcohol rehab if patient agreeable. Would advise complete cessation of alcohol as patient should be avoiding substances that are harmful to the liver. -Avoid NSAIDs. Ok to have Tylenol up to 2000 mg daily in divided doses at q 6 hour intervals if needed. -Check infectious hepatitis testing. Will defer all autoimmune work-up to the outpatient setting. -The work-up of cirrhosis is outpatient and nature, so further testing will be deferred to outpatient setting (including EGD for assessment of esophageal varices). Given his MELD is 26, patient should be seeing a shove up as an outpatient. -Patient should be reminded that failure to make lifestyle changes can and will likely lead to further liver decompensation. With a MELD of 26, his estimated 3 month mortality risk is 19.6%. History of Present Illness Reason for Consultation: Cirrhosis Attending Physician: Horace Yun MD History of Present Illness Entered patient room and attempted to wake patient. Patient aroused and said, "Go away" and pulled the covers up and rolled over. History and physical will be generated based on chart review. Patient is a 37 yo male with history of significant alcohol abuse who presented to [facility] due to abdominal distention. He was seen for alcohol related liver issues in June by Radames Barnes PA-C where he emphasized that he would not consider alcohol cessation. He presented to a [facility] urgent care last week for his abdominal distention and was appropriately referred to the ER, however he did not go. He finally presented to the ED at [facility]. A CT scan of the abdomen/pelvis suggested large volume ascites, portal hypertension, & esophageal varices as well as progression to cirrhosis, a change since his imaging in June 2022. The patient has reported continued, ongoing, significant alcohol consumption. In the ED, the ED physician performed a bedside ultrasound-guided paracentesis removing 5.5 L of ascitic fluid. SAAG 1.1 consistent with portal hypertension. No cultures/cytology sent. Current MELD is 26. INR 1.4 (was 1.2 in June 2022). Patient has noted hyponatremia and anemia. Of note, his LFTs/bili are notably improved since his visit in June 2022. AST 91, ALT 33, T bili 4.3. Ethyl alcohol level 79.5. Allergies Allergy/AdvReac Type Severity Reaction Status Date / Time No Known Allergies Allergy Verified 12/04/22 22:16 Home Medications Medication Instructions Recorded Confirmed Type multivitamin 1 tab PO DAILY 12/04/22 12/04/22 History Patient History Medical History Alcohol use Alcohol withdrawal Anemia 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 CHI (closed head injury) Chronic hyponatremia Hepatitis Hyponatremia Chronic Seizure EtOH withdrawal Thrombocytopenia Tobacco use Surgical History No pertinent past surgical history Family History Other Multiple myeloma Social History Smoking Status: Current every day smoker Tobacco Type: Cigarettes Cigarettes Per Day: pack a day; Second Hand Exposure: Yes; Do You Dip or Chew Tobacco: No; Hx Alcohol Use: Yes Alcohol type: beer Hx Substance Use: No Preferred Language: Polish Communication Ability: Effective Hearing Ability: Normal Pharmaceutical Operator Required: No Beliefs That Will Affect Care: None marital status: Single Current Living Situation: Alone current occupational status: employed Feels Safe at Home: Yes Assistive Devices: None Review of Systems Review of Systems: Other (Refusal to participate) Patient did not participate in a ROS Physical Exam Constitutional: well developed Respiratory: normal respiratory effort Cardiovascular: Rate/Rhythm: regular rate Gastrointestinal (Abdomen): No exam as patient did not participate Psychiatric: Orientation: alert and oriented x 3 Results & Data Vital Signs (Past 12 Hours) Vital Signs Temp Pulse Pulse Resp BP BP Pulse Ox 12/05/22 07:00 36.7 C 84 18 126/74 95 12/05/22 05:02 87 12/05/22 04:20 36.9 C 87 14 127/86 96 12/05/22 04:20 12/05/22 03:45 78 18 120/72 98 12/05/22 00:42 78 17 150/100 H 99 12/04/22 23:42 79 16 137/92 99 12/04/22 22:24 98 H 18 137/92 100 12/04/22 22:15 98 H 18 100 Pulse Ox O2 Del Method O2 Del Method 12/05/22 07:00 Room Air 12/05/22 05:02 12/05/22 04:20 Room Air 12/05/22 04:20 96 Room Air 12/05/22 03:45 Room Air 12/05/22 00:42 12/04/22 23:42 12/04/22 22:24 Room Air 12/04/22 22:15 Room Air PG Care Time/CCT Total # of Minutes Spent Total Time Spent with Patient: Total time spent is greater than 50% in coordination of care (as documented) at patient's floor/unit and/or counseling patient: Coding Level of Care Code 96378 IN/OBS CONSULT LVL 3,45M Diagnoses Decompensation of cirrhosis of liver K72.90; K74.60
--- NOTE | 2022-12-05 10:57 | Nephrology Consultation ---
Date of Consultation December 05, 2022 Assessment & Plan (1) Hyponatremia: Severe hyponatremia correcting too quickly in pt at significant risk for ODS, seizures, other complications of too rapid correction d/t alcoholism. Presenting sodium 115 last evening 10 PM. Sodium within 12 hours at 128, correcting too fast. Goal sodium is no more than 121 this evening at 10 PM. Patient w/o sx currently We will continue fluid limit for consistency at 1.5L - agree w/ <2 gm daily Na limit ordered every 6 hour basic metabolic panel; next one at 1600 Maintain K at 4 > give po to supplement >> started on k 40 mEq po bid We will give 500 mL D5 water at 200 mL hourly stat -continue PCU monitoring, low threshold for seizure/fall precautions -given higher risk of brain complications, recommend CT head History of Present Illness Reason for Consultation: Hyponatremia Requesting Physician: Dr Mckeon Attending Physician: Horace Yun MD History of Present Illness 37-year-old male whom I am asked to see for hyponatremia was admitted overnight with acute on chronic hyponatremia in the setting of decompensated alcoholic cirrhosis after presenting with worsening abdominal distention and jaundice. His presenting sodium was 115 at 10 PM last evening. Past medical history includes alcoholic liver cirrhosis complicated by ascites and hepatitis and past withdrawal seizures (most recently 06/2022), active alcohol and tobacco abuse, subarachnoid hemorrhage 04/2022, intracranial aneurysm, emphysema, chronic hyponatremia. Admitted here June 2021 with alcohol withdrawal seizures. [place] [facility] [place] management of subarachnoid hemorrhage where he was noted to have a possible right posterior communicating aneurysm w/ possible rupture; pt signed out AMA, declined further w/u at that time. In the ER last evening, 5.5 L of ascitic fluid drained by ER provider with IV albumin. He received a banana bag and 150 mL hypertonic saline. He was also started on a 1.5 L fluid limit. At 10 AM today, serum sodium 128. Sodium checks ordered every 6 hours. He had 40 mill equivalents oral potassium this morning 0800. The patient denies sob or n/v or musculoskeletal or abdominal pain on ROS. No change in UOP. Rest of ROS otherwise negative. Allergies Allergy/AdvReac Type Severity Reaction Status Date / Time No Known Allergies Allergy Verified 12/04/22 22:16 Home Medications Medication Instructions Recorded Confirmed Type multivitamin 1 tab PO DAILY 12/04/22 12/04/22 History Patient History Medical History Alcohol use Alcohol withdrawal Anemia 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 CHI (closed head injury) Chronic hyponatremia Hepatitis Hyponatremia Chronic Seizure EtOH withdrawal Thrombocytopenia Tobacco use Surgical History No pertinent past surgical history Family History Other Multiple myeloma Social History Smoking Status: Current every day smoker Tobacco Type: Cigarettes Cigarettes Per Day: pack a day; Second Hand Exposure: Yes; Do You Dip or Chew Tobacco: No; Hx Alcohol Use: Yes Alcohol type: beer Hx Substance Use: No Preferred Language: Filipino Communication Ability: Effective Hearing Ability: Normal 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: No Beliefs That Will Affect Care: None marital status: Single Current Living Situation: Alone current occupational status: employed Feels Safe at Home: Yes Assistive Devices: None Review of Systems Review of Systems: All systems reviewed & are unremarkable except as noted in HPI & below Physical Exam Constitutional: well developed and well nourished Eyes: EOM intact bilaterally ENMT: Ears: no external ear abnormality Nose: no external nose abnormality Mouth: + dry oral mucous membranes Neck: no nuchal rigidity Respiratory: normal respiratory effort Auscultation: + diminished lung sounds Gastrointestinal (Abdomen): Inspection/Auscultation: normal bowel sounds Percussion/Palpation: abdomen soft; abdomen nontender Musculoskeletal: Extremities: strength 5/5 throughout Skin: no rashes, warm and dry + jaundice Neurologic: alonzo, fluent speech, no tremor Results & Data Vital Signs (Past 12 Hours) Vital Signs Temp Pulse Pulse Resp BP BP Pulse Ox 12/05/22 07:00 36.7 C 84 18 126/74 95 12/05/22 05:02 87 12/05/22 04:20 36.9 C 87 14 127/86 96 12/05/22 04:20 12/05/22 03:45 78 18 120/72 98 12/05/22 00:42 78 17 150/100 H 99 12/04/22 23:42 79 16 137/92 99 Pulse Ox O2 Del Method O2 Del Method 12/05/22 07:00 Room Air 12/05/22 05:02 12/05/22 04:20 Room Air 12/05/22 04:20 96 Room Air 12/05/22 03:45 Room Air 12/05/22 00:42 12/04/22 23:42 Laboratory Results 12/05/22 06:13 12/05/22 10:[address] abdomen pelvis with contrast on admission FINDINGS: Mediastinum: Small hiatal hernia. ABDOMEN: Liver: Cirrhotic liver. Gallbladder and bile ducts: Unremarkable. Pancreas: Unremarkable. Spleen: Unremarkable. Adrenals: Unremarkable. Kidneys and ureters: Unremarkable. No obstructing stones. No hydronephrosis. Stomach and bowel: Mucosal thickening along the GI tract secondary to portal hypertension. PELVIS: Appendix: No findings to suggest acute appendicitis. Bladder: Unremarkable. Reproductive: Unremarkable as visualized. ABDOMEN and PELVIS: Intraperitoneal space: Large volume ascites. No free air. Bones/joints: No acute fracture. Soft tissues: Unremarkable. Vasculature: Portosystemic varices including esophageal varices. Lymph nodes: Unremarkable. IMPRESSION: 1. Cirrhotic liver. 2. Large volume ascites. 3. Portosystemic varices including esophageal varices. 4. Mucosal thickening along the GI tract secondary to portal hypertension. 5. Small hiatal hernia.
--- NOTE | 2022-12-05 11:01 | Hospitalist Progress Note ---
Date of Service December 05, 2022 Assessment & Plan (1) Decompensation of cirrhosis of liver: (2) Hyponatremia: Plan: Acute on chronic multifactorial : decompensated alcoholic cirrhosis, new diagnosis Beer potomania ascites secondary to alcoholic cirrhosis, transudative fluid character on analysis Alcoholic hepatitis, good prognosis with computed Maddrey's DF score of 27 hx SAH, intracranial aneurysm alcohol withdrawal seizures, no recent seizures as per patient emphysema, baseline pulmonary function ongoing alcohol/ tobacco abuse chronic anemia, hemoglobin at baseline episodic thrombocytopenia secondary to liver disease Status post paracentesis draining 5 L of ascitic fluid GI consulted-recommend Lasix 40 mg and spironolactone 100 mg daily Recommend outpatient follow-up for further work-up and referral to vp cardiovascular Sodium increased from 117, now 128 Nephrology service on board Awaiting further recommendations Patient declining gabapentin or Librium will order alcohol withdrawal protocol including as needed Ativan Nicotine patch DVT prophylaxis. SCDs Re: history SAH Full code plan of care discussed with patient in detail and at length all questions answered he is understanding, agreeable, comfortable with the plan of care Admission and Anticipated Discharge Date Admission Date: December 05, 2022 Subjective ff up for alcoholic liver cirrhosis, hyponatremia, etc seen resting in bed, comfortable states he feels improved compared to yesterday less abdominal discomfort, no nausea, no shortness of breath Denies fevers or chills Last drink was 2 days ago, denies tremors, sweating, confusion, etc. No other new symptoms Review of Systems Review of Systems: all noted and negative except for above Physical Exam Physical Exam: General- oriented x 3, not in distress, speaks in sentences with no effort or accessory muscle use Eyes-positive mild jaundice Neck- no JVD Lungs- clear breath sounds bilaterally, no rales/wheezes Heart- normal rate, regular rhythm; no murmurs Abdomen- normal bowel sounds, mildly distended, soft, nontender Extremities- no pretibial edema, no calf tenderness Neuro- alert, oriented x 3; no gross focal neurologic deficits Skin- warm & dry Results & Data Results & Data Vital Signs (Past 12 Hours) Vital Signs Temp Pulse Pulse Resp BP BP Pulse Ox 12/05/22 07:00 36.7 C 84 18 126/74 95 12/05/22 05:02 87 12/05/22 04:20 36.9 C 87 14 127/86 96 12/05/22 04:20 12/05/22 03:45 78 18 120/72 98 12/05/22 00:42 78 17 150/100 H 99 12/04/22 23:42 79 16 137/92 99 Pulse Ox O2 Del Method O2 Del Method 12/05/22 07:00 Room Air 12/05/22 05:02 12/05/22 04:20 Room Air 12/05/22 04:20 96 Room Air 12/05/22 03:45 Room Air 12/05/22 00:42 12/04/22 23:42 all noted and reviewed including below
[2022-12-05] MEDS ORDERED: DEXTROSE 5% 500 ML IV STA (11:06)
[2022-12-05] MEDS: oxyCODONE HCL IR 5 MG TAB (IMMEDIATE RELEASE) PO PRN ×2 (13:43→22:50)
[2022-12-05 17:10] LABS: Anion Gap 3 (3-11); BUN Creatinine Ratio 5.1 (10-20); Blood Urea Nitrogen 2 mg/dl (6-23); Calcium 7.9 mg/dl (8.6-10.3); Carbon Dioxide 27 mmol/L (21-32); Chloride 97 mmol/L (98-107); Creatinine Clr Calc Pharmacy 230.2 ml/min; Est GFR (African American) > 150.0 ml/min; Est GFR (Non-African American) > 150.0 ml/min; Glucose 102 mg/dl (70-99(Fasting)); Potassium 3.6 mmol/L (3.5-5.1); Sodium 127 mmol/L (136-145)
[2022-12-05] MEDS ORDERED: DEXTROSE 5% 500 ML IV SCH (17:30)
[2022-12-05] MEDS: LORazepam 2 MG/1 ML VIAL IV PRN (17:45)
[2022-12-05] MEDS: POTASSIUM CHLORIDE CRTAB 20 MEQ TABCR PO SCH (21:02)
[2022-12-05 23:13] LABS: Anion Gap 2 (3-11); BUN Creatinine Ratio 4.3 (10-20); Blood Urea Nitrogen 2 mg/dl (6-23); Calcium 7.7 mg/dl (8.6-10.3); Carbon Dioxide 28 mmol/L (21-32); Chloride 97 mmol/L (98-107); Est GFR (African American) > 150.0 ml/min; Glucose 87 mg/dl (70-99(Fasting)); Sodium 127 mmol/L (136-145)
[2022-12-06 05:29] LABS: Anion Gap 1 (3-11); BUN Creatinine Ratio 5.1 (10-20); Blood Urea Nitrogen 2 mg/dl (6-23); Carbon Dioxide 26 mmol/L (21-32); Chloride 99 mmol/L (98-107); Creatinine Clr Calc Pharmacy 230.2 ml/min; Est GFR (African American) > 150.0 ml/min; Est GFR (Non-African American) > 150.0 ml/min; Glucose 84 mg/dl (70-99(Fasting)); Potassium 4.7 mmol/L (3.5-5.1); Sodium 126 mmol/L (136-145)
[2022-12-06] MEDS: MULTIVITAMIN TAB PO SCH (09:46)
[2022-12-06] MEDS: FOLIC ACID 1 MG TAB PO SCH (09:46)
[2022-12-06] MEDS: THIAMINE HCL 100 MG TAB PO SCH (09:46)
[2022-12-06] MEDS: POTASSIUM CHLORIDE CRTAB 20 MEQ TABCR PO SCH ×2 (09:46→19:55)
[2022-12-06] MEDS: NICOTINE 21 MG/24 HR TDSY TD SCH (09:46)
--- NOTE | 2022-12-06 10:21 | Communication Note ---
Date of Service: December 06, 2022 Received an update from the primary team that the patient's abdominal distention has increased. Would advise obtaining an abdominal US. Would also advise updating MELD labs including a CMP & PT/INR daily while admitted.
[2022-12-06 11:02] LABS: HBSAG NON-REACTIVE (NON-REACTIVE); Hepatitis A Antibody IgM NON-REACTIVE (NON-REACTIVE); Hepatitis B Core Antibody IgM NON-REACTIVE (NON-REACTIVE); Hepatitis B Core Antibody Total NON-REACTIVE (NON-REACTIVE)
[2022-12-06 11:34] LABS: Alanine Aminotransferase 27 U/L (7-52); Albumin Globulin Ratio 0.9 (0.9-2); Albumin Level 2.4 gm/dl (3.4-5.0); Alkaline Phosphatase 269 U/L (34-104); Anion Gap 1 (3-11); Aspartate Aminotransferase 82 U/L (13-39); BUN Creatinine Ratio 4.9 (10-20); Bilirubin,Total 3.5 mg/dl (0.2-1.0); Blood Urea Nitrogen 2 mg/dl (6-23); Calcium 8.1 mg/dl (8.6-10.3); Carbon Dioxide 27 mmol/L (21-32); Chloride 99 mmol/L (98-107); Creatinine Clr Calc Pharmacy 218.3 ml/min; Est GFR (African American) > 150.0 ml/min; Est GFR (Non-African American) 148.1 ml/min; Globulin 2.7 gm/dl (2.5-4.0); Glucose 106 mg/dl (70-99(Fasting)); Potassium 4.4 mmol/L (3.5-5.1); Sodium 127 mmol/L (136-145); Total Protein 5.1 gm/dl (6.0-8.3)
--- NOTE | 2022-12-06 11:36 | Nephrology Progress Note ---
Date of Service December 06, 2022 Assessment & Plan (1) Hyponatremia: Plan: Severe hyponatremia correcting too quickly in pt at significant risk for ODS, seizures, other complications of too rapid correction d/t alcoholism. Presenting sodium 115 12/04 at 10 PM. Sodium within 12 hours at 128, correcting too fast. Goal sodium is no more than 121 12/05 at 10 PM >> he has not really responded to this. Patient w/o sx currently. Goal is to hold sNa in mid 120s today We will continue fluid limit for consistency at 1.5L - agree w/ <2 gm daily Na limit pls order [id number] hour basic metabolic panel Maintain K at 4 > give po to supplement >> started on k 40 mEq po bid We will give another 3000 mL D5 water at 150 mL hourly today -continue PCU monitoring, low threshold for seizure/fall precautions -given higher risk of brain complications, recommend CT head Admission and Anticipated Discharge Date Admission Date: December 05, 2022 Subjective denies acute interval events or pain such as N/v, sob, confusion, voiding concerns. no c/o woresning abdominal distension or edema Review of Systems Review of Systems: All systems reviewed & are unremarkable except as noted in Subjective Physical Exam Constitutional: well developed, + cachectic and + frail appearing Eyes: EOM intact bilaterally ENMT: Ears: no external ear abnormality Nose: no external nose abnormality Mouth: + dry oral mucous membranes Neck: no nuchal rigidity Respiratory: normal respiratory effort Auscultation: + diminished lung sounds Cardiovascular: RRR, no murmur, no edema Gastrointestinal (Abdomen): Inspection/Auscultation: + abdomen distended and normal bowel sounds Percussion/Palpation: abdomen soft; abdomen nontender Musculoskeletal: Extremities: strength 5/5 throughout Skin: no rashes, warm and dry + jaundice Results & Data Vital Signs (Past 12 Hours) Vital Signs Temp Pulse Resp BP Pulse Ox O2 Del Method 12/06/22 11:18 36.8 C 88 18 120/72 96 Room Air 12/06/22 07:27 36.5 C 80 17 113/67 94 Room Air 12/06/22 03:07 36.8 C 83 18 102/62 95 Room Air Laboratory Results 12/05/22 06:13
[2022-12-06 11:41] LABS: INR 1.5 (0.9-1.1); Prothrombin Time 15.6 Seconds (9.0-12.0)
[2022-12-06] MEDS: DEXTROSE 5% 1,000 ML IV SCH ×2 (12:12→19:56)
--- NOTE | 2022-12-06 12:48 | Hospitalist Progress Note ---
Date of Service December 06, 2022 Assessment & Plan (1) Decompensation of cirrhosis of liver: (2) Hyponatremia: Plan: Acute on chronic multifactorial : decompensated alcoholic cirrhosis, new diagnosis Beer potomania ascites secondary to alcoholic cirrhosis, transudative fluid character on analysis Alcoholic hepatitis, good prognosis with computed Maddrey's DF score of 27 hx SAH, intracranial aneurysm alcohol withdrawal seizures, no recent seizures as per patient emphysema, baseline pulmonary function ongoing alcohol/ tobacco abuse chronic anemia, hemoglobin at baseline episodic thrombocytopenia secondary to liver disease Status post paracentesis draining 5 L of ascitic fluid GI consulted-recommend Lasix 40 mg and spironolactone 100 mg daily Recommend outpatient follow-up for further work-up and referral to diagram clerk 12/06 (+) increase in abdominal distention Abdominal US ordered to quantify ascites- may need another paracentesis messaged GI service Sodium increased from 117, now 127-128 Nephrology service on board continue Fluid restriction maintain K > 4 no acute signs of alcohol withdrawal Patient declining gabapentin or Librium will order alcohol withdrawal protocol including as needed Ativan Nicotine patch DVT prophylaxis. SCDs Re: history SAH Full code Disposition lives at home with family anticipate d/c home when medically stable needs to be establish care with diagram clerk plan of care discussed with patient in detail and at length all questions answered he is understanding, agreeable, comfortable with the plan of care Admission and Anticipated Discharge Date Admission Date: December 05, 2022 Subjective ff up for liver cirrhosis with ascites, etc seen resting in bed, comfortable feels abdominal is getting bloated again no abdominal pain, nausea/vomiting, fever/chills no other symptoms Review of Systems Review of Systems: all noted and negative except for above Physical Exam Physical Exam: General- oriented x 3, not in distress, speaks in sentences with no effort or accessory muscle use Eyes- anicteric Neck- no JVD Lungs- clear breath sounds bilaterally, no rales/wheezes Heart- normal rate, regular rhythm; no murmurs Abdomen- normal bowel sounds, nondistended, soft, (+) ascites with moderate distention Extremities- no pretibial edema, no calf tenderness Neuro- alert, oriented x 3; no gross focal neurologic deficits Skin- warm & dry Results & Data Results & Data Vital Signs (Past 12 Hours) Vital Signs Temp Pulse Resp BP Pulse Ox O2 Del Method 12/06/22 11:18 36.8 C 88 18 120/72 96 Room Air 12/06/22 07:27 36.5 C 80 17 113/67 94 Room Air 12/06/22 03:07 36.8 C 83 18 102/62 95 Room Air
--- NOTE | 2022-12-06 14:14 | Ultrasound Report ---
US abdomen ltd ascites HISTORY: 37 years-old Male quantify ascites acute right upper quadrant abdominal pain COMPARISON: CT 12/04/2022 TECHNIQUE: Multiple real-time sonographic images of the abdomen were obtained assessing grayscale kvng earance FINDINGS: Hepatic steatosis with mild marginal nodularity. Small volume ascites noted within all 4 quadrants of the abdomen. Complex debris noted within the urinary bladder which demonstrates mild wall thickening . IMPRESSION: Small-volume abdominal pelvic ascites. ACT 112: Negative or not required by law. The above report was generated using voice recognition software. It may contain grammatical, syntax o r spelling errors. Electronically signed by: Esa Cruz M.D. 12/06/2022 2:13 PM
[2022-12-06 19:04] LABS: Anion Gap 3 (3-11); BUN Creatinine Ratio 3.6 (10-20); Blood Urea Nitrogen 2 mg/dl (6-23); Calcium 7.6 mg/dl (8.6-10.3); Carbon Dioxide 25 mmol/L (21-32); Chloride 96 mmol/L (98-107); Creatinine Clr Calc Pharmacy 162.7 ml/min; Est GFR (African American) > 150.0 ml/min; Est GFR (Non-African American) 131.3 ml/min; Glucose 97 mg/dl (70-99(Fasting)); Potassium 4.5 mmol/L (3.5-5.1); Sodium 124 mmol/L (136-145)
[2022-12-06] MEDS: oxyCODONE HCL IR 5 MG TAB (IMMEDIATE RELEASE) PO PRN (19:55)
[2022-12-06] MEDS: LORazepam 2 MG/1 ML VIAL IV PRN (22:48)
[2022-12-07] MEDS: DEXTROSE 5% 1,000 ML IV SCH (02:35)
[2022-12-07] MEDS: POTASSIUM CHLORIDE CRTAB 20 MEQ TABCR PO SCH ×2 (07:39→19:29)
[2022-12-07] MEDS: NICOTINE 21 MG/24 HR TDSY TD SCH (07:39)
[2022-12-07] MEDS: FOLIC ACID 1 MG TAB PO SCH (07:39)
[2022-12-07] MEDS: MULTIVITAMIN TAB PO SCH (07:40)
[2022-12-07] MEDS: THIAMINE HCL 100 MG TAB PO SCH (07:40)
--- NOTE | 2022-12-07 08:27 | Hospitalist Progress Note ---
Date of Service December 07, 2022 Assessment & Plan (1) Decompensation of cirrhosis of liver: Plan: -status post 5.5L ascites removal, transudative process -Continue with fluid restriction. Appreciate GI input, recommend lasix and spironolactone but this is not currently ordered presumably due to patient's hyponatremia being too rapidly corrected--will defer to Nephrology when diuretics can be initiated. -Repeat abdominal ultrasound shows only small amount of ascites -Will need referral to see Pipe Coverer Helper for follow up after discharge -daily CMP and INR while here -ongoing alcohol cessation counseling (2) Hyponatremia: Plan: Na 117 on admission, rapid correction to 128. Last Na 124. Will check BMP Q 12 hours, repeat BMP later this afternoon 1.5L fluid restriction CT head no abnormalities Management per Nephrology (3) Alcohol dependence: Plan: -Patient declines rehab -monitor for withdrawal symptoms -ongoing cessation counseling Plan Tobacco Use -continue nicotine patch History of SAH and Intracranial aneurysm DVT ppx SCDs Admission and Anticipated Discharge Date Admission Date: December 05, 2022 Subjective Denies abdominal pain. Reports some drainage at site of paracentesis Reports that he needs to be discharged tomorrow due to work commitment tomorrow night Having regular BM, no melena Review of Systems Review of Systems: As above Physical Exam Physical Exam: Flat affect, no acute distress Respiratory: breathing comfortably on room air, no wheezing/rhonchi/rales Cardiovascular: regular rate and rhythm, no murmurs/rubs/gallops Gastrointestinal (Abdomen): soft, non tender, non distended Musculoskeletal: no edema Skin: multiple tattoos Neurologic: awake, alert, spontaneously moving extremities Results & Data Results & Data Vital Signs (Past 12 Hours) Vital Signs Temp Pulse Pulse Resp BP Pulse Ox O2 Del Method 12/07/22 07:22 81 12/07/22 03:00 36.5 C 80 22 121/77 96 Room Air 12/06/22 23:54 84 12/06/22 22:00 36.5 C 84 20 121/79 97 Room Air
--- NOTE | 2022-12-07 08:53 | Communication Note ---
Date of Service: December 07, 2022 Reviewed results of US ordered on 12/06/22 due to primary team concerns about worsening abdominal distention. There was minimal ascitic fluid noted. MELD 26. No acute changes otherwise. Continue with original plan from GI consult earlier this week. Patient will need to see hepatology upon discharge. Ensure bowels are moving. If distention persists, consider different imaging modality for further assessment for non-ascitic causes.
--- NOTE | 2022-12-07 10:21 | CT Scan Report ---
CT OF THE HEAD WITHOUT CONTRAST CLINICAL HISTORY: Hyponatremia. COMPARISON STUDY: Head CT and MRI of the brain July 15, 2022. CT DOSE: 625.80 mGy.cm TECHNIQUE: Helical axial images of the head were obtained without IV contrast. Automated exposure con trol was utilized for the study. A dose lowering technique was utilized adhering to the principles o f ALARA. FINDINGS: This study is mildly compromised by motion artifact. No acute intracranial hemorrhage, midl ine shift or mass effect is present. The ventricular system is unremarkable. The basal cisterns are p atent. No extra-axial collections are present. There are no findings to suggest acute dural sinus thr ombosis or acute territorial infarct. No significant calvarial abnormalities are present. Visualized portions of the sinuses and mastoid air cells are clear. IMPRESSION: No acute intracranial findings. ACT 112: Negative or not required by law. Electronically signed by: Octavio Montes M.D. 12/07/2022 10:20 AM
[2022-12-07 11:23] LABS: Alanine Aminotransferase 28 U/L (7-52); Albumin Globulin Ratio 0.8 (0.9-2); Albumin Level 2.4 gm/dl (3.4-5.0); Alkaline Phosphatase 292 U/L (34-104); Anion Gap 2 (3-11); Aspartate Aminotransferase 86 U/L (13-39); Bilirubin,Total 3.3 mg/dl (0.2-1.0); Blood Urea Nitrogen 2 mg/dl (6-23); Calcium 8.2 mg/dl (8.6-10.3); Carbon Dioxide 25 mmol/L (21-32); Chloride 97 mmol/L (98-107); Creatinine Clr Calc Pharmacy 223.7 ml/min; Est GFR (African American) > 150.0 ml/min; Est GFR (Non-African American) 149.6 ml/min; Glucose 91 mg/dl (70-99(Fasting)); Sodium 124 mmol/L (136-145); Total Protein 5.4 gm/dl (6.0-8.3)
[2022-12-07 11:51] LABS: INR 1.4 (0.9-1.1); Prothrombin Time 14.9 Seconds (9.0-12.0)
[2022-12-07 12:07] LABS: Hematocrit (blood only) 29.6 % (42.0-52.0); Hemoglobin 10.7 g/dl (14.0-18.0); Mean Corpuscular Hemoglobin 36.5 pg (25.0-34.0); Mean Corpuscular Hgb Conc 36.1 g/dL (32.0-36.0); Mean Platelet Volume 10.8 fL (9.4-12.4); Platelet Count 122 K/uL (130-400); RDW Coefficient of Variation 13.2 % (11.5-14.5); RDW Standard Deviation 48.9 fL (36.4-46.3); Red Blood Count 2.93 M/uL (4.70-6.10); White Blood Count 5.71 K/ul (4.8-10.8)
[2022-12-07 12:08] LABS: Platelet Estimate Decreased (Normal)
[2022-12-07] MEDS: oxyCODONE HCL IR 5 MG TAB (IMMEDIATE RELEASE) PO PRN (14:06)
[2022-12-07] MEDS ORDERED: FUROSEMIDE INJ 20 MG/2 ML VIAL IV STA (14:39)
--- NOTE | 2022-12-07 14:41 | Nephrology Progress Note ---
Date of Service December 07, 2022 Assessment & Plan (1) Hyponatremia: Plan: Severe hyponatremia corrected initially too quickly in pt at significant risk for ODS, seizures, other complications of too rapid correction d/t alcoholism. Presenting sodium 115 /18 at 10 PM. Sodium within 12 hours at 128, correcting too fast. Goal yesterday was to hold sNa in mid 120s which we did. target Na in AM is 130 -D5W stopped after 3L -trial lasix 10 mg IV x 2 doses todaoy We will continue fluid limit for consistency at 1.5L - agree w/ <2 gm daily Na limit recheck bmp 1600 Maintain K at 4 > give po to supplement >> lowered K to 20 mEq po bid Admission and Anticipated Discharge Date Admission Date: December 05, 2022 Subjective ongoing abdominal discomfort/distension; no n/v, no sob; no edema; denies issues ambulating; still very tired Review of Systems Review of Systems: All systems reviewed & are unremarkable except as noted in Subjective Physical Exam Constitutional: well developed, well nourished, + cachectic and + frail appearing Eyes: EOM intact bilaterally ENMT: Ears: no external ear abnormality Nose: no external nose abnormality Mouth: + dry oral mucous membranes Neck: no nuchal rigidity Respiratory: normal respiratory effort Auscultation: + diminished lung sounds Cardiovascular: RRR, no murmur, no edema Gastrointestinal (Abdomen): Inspection/Auscultation: + abdomen distended and normal bowel sounds Percussion/Palpation: abdomen soft; abdomen nontender Musculoskeletal: Extremities: strength 5/5 throughout Skin: no rashes, warm and dry + jaundice Neurologic: alonzo, fluent speech Results & Data Vital Signs (Past 12 Hours) Vital Signs Temp Pulse Pulse Resp BP Pulse Ox O2 Del Method 12/07/22 11:56 36.4 C L 86 17 138/88 100 Room Air 12/07/22 07:22 81 12/07/22 03:00 36.5 C 80 22 121/77 96 Room Air Laboratory Results 12/07/22 10:39 12/07/22 10:39
[2022-12-07 17:05] LABS: Anion Gap 2 (3-11); BUN Creatinine Ratio 3.9 (10-20); Blood Urea Nitrogen 2 mg/dl (6-23); Calcium 8.1 mg/dl (8.6-10.3); Carbon Dioxide 28 mmol/L (21-32); Chloride 97 mmol/L (98-107); Creatinine Clr Calc Pharmacy 175.5 ml/min; Est GFR (African American) > 150.0 ml/min; Est GFR (Non-African American) 135.4 ml/min; Glucose 94 mg/dl (70-99(Fasting)); Potassium 3.9 mmol/L (3.5-5.1); Sodium 127 mmol/L (136-145)
[2022-12-08 07:36] LABS: Alanine Aminotransferase 23 U/L (7-52); Albumin Globulin Ratio 0.7 (0.9-2); Albumin Level 2.2 gm/dl (3.4-5.0); Alkaline Phosphatase 260 U/L (34-104); Anion Gap 3 (3-11); Aspartate Aminotransferase 67 U/L (13-39); BUN Creatinine Ratio 6.8 (10-20); Bilirubin,Total 3.2 mg/dl (0.2-1.0); Blood Urea Nitrogen 3 mg/dl (6-23); Calcium 8.3 mg/dl (8.6-10.3); Carbon Dioxide 26 mmol/L (21-32); Chloride 99 mmol/L (98-107); Creatinine Clr Calc Pharmacy 202.1 ml/min; Est GFR (African American) > 150.0 ml/min; Est GFR (Non-African American) 143.9 ml/min; Glucose 78 mg/dl (70-99(Fasting)); Potassium 4.1 mmol/L (3.5-5.1); Sodium 128 mmol/L (136-145); Total Protein 5.2 gm/dl (6.0-8.3)
[2022-12-08 07:44] LABS: INR 1.4 (0.9-1.1)
[2022-12-08] MEDS: FOLIC ACID 1 MG TAB PO SCH (07:48)
[2022-12-08] MEDS: THIAMINE HCL 100 MG TAB PO SCH (07:48)
[2022-12-08] MEDS: MULTIVITAMIN TAB PO SCH (07:48)
[2022-12-08] MEDS: POTASSIUM CHLORIDE CRTAB 20 MEQ TABCR PO SCH (07:48)
[2022-12-08] MEDS: NICOTINE 21 MG/24 HR TDSY TD SCH (07:52)
--- NOTE | 2022-12-08 09:42 | Nephrology Progress Note ---
Date of Service December 08, 2022 Assessment & Plan (1) Hyponatremia: Plan: Severe hyponatremia corrected initially too quickly in pt at significant risk for ODS, seizures, other complications of too rapid correction d/t alcoholism. Presenting sodium 115 12/04 at 10 PM. Sodium within 12 hours at 128, correcting too fast. Goal yesterday was to hold sNa in mid 120s which we did. target Na in for today 130 > we hit 128, acceptable. Pt wants to leave today which is not ideal b/c sodium not appropriately corrected so far. Recommend another 24 hrs inpt monitoring/care in pt at risk for ODS (for which we are just now entering timeframe), though ODS risk likely to persist even after hospital d/c w/ appropriately corrected sodium D/c recs if he must leave today -needs immediate reeval in ER w/ brain imaging if any lethargy, confusion, obtundation, problems speaking or swallowing, abnormal limb movements or paralysis, seizures > could be sign of life threatening complication of sodium problems -continue less than 2 gm sodium diet -start torsemide 10 mg daily and potassium 20 mEq twice daily continue fluid limit for consistency at 1.5L -bmp, urine osms, urine sodium, serum sodium to be ordered by nephro RN at hospital d/c for 12/12 -hospital d/c appt w/ me next 2-4 wks Admission and Anticipated Discharge Date Admission Date: December 05, 2022 Subjective pt left before I coudl eval him today; care d/w hospitalist and recs below made Results & Data Vital Signs (Past 12 Hours) Vital Signs Temp Pulse Pulse Resp BP Pulse Ox O2 Del Method 12/08/22 08:20 37.0 C 86 16 132/86 98 Room Air 12/08/22 08:00 73 12/08/22 03:37 37.2 C 88 15 131/85 96 Room Air 12/07/22 23:52 81 12/07/22 23:28 36.8 C 81 16 138/87 97 Room Air Laboratory Results 12/07/22 10:39 12/08/22 06:58
--- NOTE | 2022-12-09 18:02 | Discharge Summary ---
Date of Service December 09, 2022 Admission HPI Per Admitting Provider Medical history significant for SAH, intracranial aneurysm, chronic hyponatremia, history alcohol withdrawal seizures, hepatic steatosis as per records, emphysema as per records, ongoing alcohol/ tobacco abuse, chronic a nemia ( baseline hemoglobin 11), chronic thrombocytopenia. Last confinement June 2022 for alcohol withdrawal seizure. Hepatomegaly and hepatic steatosis on CT abdomen. Patient unable to follow-up with PCP and GI specialist following discharge. He went back to drinking shortly after discharge from the hospital. Last month, patient noted increasing abdominal distention accompanied by achy abdominal discomfort. No fever, no chills. No chest pain. No headache, no confusion. Unable to take a deep breath because of abdominal distention. Patient denies black, bloody stools. Patient consulted [facility] urgent care center last week. ER evaluation recommended but patient was not able to comply because he had to work. Patient noted worsening abdominal distention, bloating, and jaundice at home. At the ER, 5 L of albumin drained by ER provider followed by IV albumin administration. Banana bag and hypertonic saline administered at the ER for hyponatremia. 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 Principal Diagnosis Hyponatremia Decompensated alcohol cirrhosis Discharge Exam Appears disheveled, unkempt ENMT scleral icterus Respiratory Breathing comfortably on room air Cardiovascular regular rate and rhythm, no murmurs/rubs Gastrointestinal (Abdomen) soft, non tender Skin multiple tattoos, some skin tears Neurologic awake, alert, spontaneously moving extremities Psychiatric flat affect, avoids eye contact Discharge Data Allergies Allergy/AdvReac Type Severity Reaction Status Date / Time No Known Allergies Allergy Verified 12/04/22 22:16 Consultations 12/05/22 02:30 Consult Nephrology Routine 12/05/22 04:20 Consult Gastroenterology Routine Ordered Studies 12/04/22 21:59 CT abd pelvis IV con only Stat 12/06/22 10:19 US abdomen ltd ascites Routine 12/07/22 08:35 CT head/brain wo con Routine Hospital Course (1) Decompensation of cirrhosis of liver: He had a paracentesis here with analysis consistent with portal hypertension. 5.5 L ascites was removed. He was seen by GI and recommended that he follow up with Hepatology after discharge for further evaluation of his cirrhosis. Per GI, he would benefit from lasix and spironolactone however he also has severe hyponatremia and his diuretics was managed by Nephrology. He was on parenteral lasix here and then discharged on torsemide. He has a history of alcohol abuse but has reportedly abstained for the past 2 months and he was encouraged to remain sober. (2) Hyponatremia: Sodium was 117 on admission and he had rapid correction of his sodium to 128 so he was placed on free water to slow the correction. He was also maintained on 1.5L fluid restriction. With close intervention and monitoring, his sodium was stabilized but was not yet back to his baseline at the time of discharge. On 12/07 he announced that he intended to leave the following day. On 12/08, he asked to be discharged before 11am so he can return to work. His sodium at the time of discharge was 128 and it was explained to him that ideally it should be back to his baseline of low 130s and remain there before he can be released. However, he refused to stay in the hospital any further. He has a history of leaving the hospital against medical advice so he was discharged with instructions to return to the hospital if he developed any neurologic symptoms. In addition, repeat labwork was ordered for 12/12 and an appointment with Nephrology was made prior to his discharge. (3) Alcohol dependence: He declines alcohol rehab, states he hasn't drank any alcohol in past 2 months. He was encouraged to remain sober. Total Time Total Time Spent Total Time Spent (In Minutes): 40 Discharge Plan Discharge Items Patient Disposition: Home - Self-Care Reason For Visit: HYPONATREMIA Discharge Diagnosis: Hyponatremia Decompensated alcohol cirrhosis Activity: Resume your previous activity Driving/Machine Use: Resume 1 day after discharge Non-emergency contact: Primary Care Provider, [facility] [employer] [facility] hrologist Call non-emergency contact if: you have any medication questions Follow-up/Referrals: Bhavana Gustafson MD, PhD [Physician] - 12/14/22 1:00 pm (Date & Time 12/14/2022 1:00 PM Provider [facility] Hannah Albrecht DO [Primary Care Provider] - (Date & Time 12/12/2022 11:20 AM Provider Hannah Albrecht DO Department Family Practice [facility] ) Diet: Low Sodium (2gm) Fluids: 1500ml (6 cups) Addtl Attending Provider Instructions: You were admitted for swelling in your abdomen. You had 5.5 L fluid removed here To prevent fluid re-accumulation, you should limit your salt intake to 2gram a day and fluid intake to 1.5L (6 cups) a day. You have cirrhosis of your liver and need to see a liver doctor. Please follow up with your primary care doctor for a referral You also had very low sodium levels when you came in. Your sodium level has improved but is not yet back to normal. For this, you are started on torsemide 10mg daily and potassium 20mEq twice a day. You have repeat BMP, urine osm, urine sodium that will be ordered by the Nephrology nurse and will need to follow up with Dr Cohn in 2-4 weeks. If you experience confusion, lethargy, fatigue, nausea/vomiting--> this may be related to your sodium and please return immediately to ER Pending Studies at Discharge: No Stand-Alone Forms: My [facility] Antibodies, Smoking Cessation Medications and DC Order Prescriptions: New thiamine HCl (vitamin B1) 100 mg Tablet 100 mg PO QAM 30 Days Qty: 30 0RF potassium chloride 20 mEq Tablet,Er Particles/Crystals 20 meq PO BID 30 Days Qty: 60 0RF folic acid 1 mg Tablet 1 mg PO QAM 30 Days Qty: 30 0RF torsemide 10 mg tablet 10 mg PO DAILY Qty: 30 0RF Continued multivitamin Tablet 1 tab PO DAILY Discharge Orders: Discharge Order (Routine); Ordered 12/08/22 Ordered By: Santhosh Pettit/Other Patient Handouts: Alcoholism Resources Admission Data Admit Date/Time: 12/05/22 02:25 Attending Provider: Santhosh García Admit Provider: Shun Mckeon Primary Care Provider: Hannah Albrecht Other Providers: Bhavana Gustafson ; Marcus Napoles ; Bree Abdul ; Allen Mcdonough ; Hussain Carpenter ; Rosette Graham ; Veronica Bustillos ; Quentin Guido ; Lucila Alfred ; Brittany De Jesus ; Aileen Yang ; Tressa Charles ; Flex Gray ; Blaine Collier ; Eric Garcia ; Kal Pathak ; Wicho Dumont ; Sahra Mukherjee ; Winnie Cooney ; Kayla Guallpa ; Ronel Lugo ; Cara Rapp ; Radames Barnes ; Damian Pal ; Angela Kuhn ; Kaity Dwyer Jr ; Horace Yun Other Interventions: Discharge Summary Assessment (RN) Last Done: 12/08/22 10:50
== END 2022-12-08 11:23 | disposition home or self-care (01) | DRG 433 ==
LOC: ED 21:23 → SUATTDRO 12-05 02:25 → SUPCPDRO 12-05 02:25 → 2E 12-05 02:25
DX: F17.210 Nicotine dependence, cigarettes, uncomplicated; K70.31 Alcoholic cirrhosis of liver with ascites; F10.20 Alcohol dependence, uncomplicated; Z20.822 Contact with and (suspected) exposure to COVID-19; K70.11 Alcoholic hepatitis with ascites; D69.6 Thrombocytopenia, unspecified; K76.0 Fatty (change of) liver, not elsewhere classified; E87.1 Hypo-osmolality and hyponatremia; J43.9 Emphysema, unspecified; D64.9 Anemia, unspecified

== ENCOUNTER 2022-12-22 23:40 | Inpatient (IN) ==
--- NOTE | 2022-12-23 00:36 | Emergency Department Note ---
History of Present Illness General Chief complaint: Abdominal Pain Stated complaint: SWELLING IN ABDOMINAL,HARD TO BREATH Time Seen by Provider: 12/23/22 00:30 History of Present Illness Maximum Pain Intensity: 7 This 37-year-old male patient presents to the emergency department for evalu ation of swelling in his abdomen as well as shortness of breath. He has a history of alcoholic cirrhosis and ascites. He was last admitted 01/04/23 for hyponatremia and decompensated alcoholic cirrhosis and states that he had 3 L of fluid removed by paracentesis. He states the fluid started building up approximately 1 week ago. Now having increased abdominal pain and difficulty breathing and feels that he needs to be drained again. The patient states that he stopped drinking alcohol after his last admission, but started having 2-3 drinks a day for the past week. He states that he is drinking the ETOH to help with the pain with his sciatica. He has also not been very good about restrict ing his salt or fluid intake. He rates his pain as sharp and 7/10. The patient states he saw his [facility] GI doctor recently who increased his diuretics on Monday, but still filling up with a lot of fluid. He is now taking Aldactone 50 mg QAM, Torsemide 20 mg 2 tablets in AM, Folic Acid 1 mg QD, potassium 20 meq BID and then an OTC potassium supplement per his medications he brought with him. Home Medications Medication Instructions Recorded Confirmed Type multivitamin 1 tab PO DAILY 12/04/22 12/04/22 History folic acid 1 mg tablet 1 mg PO QAM 30 days #30 tabs 12/08/22 Rx potassium chloride 20 mEq 20 meq PO BID 30 days #60 tabs 12/08/22 Rx tablet,extended release(part/cryst) thiamine HCl (vitamin B1) 100 mg 100 mg PO QAM 30 days #30 tabs 12/08/22 Rx tablet magnesium oxide 400 mg PO DAILY 12/23/22 12/23/22 History spironolactone 50 mg tablet 50 mg PO DAILY 12/23/22 12/23/22 History torsemide 10 mg tablet 40 mg PO DAILY 12/23/22 12/23/22 History Allergies Allergy/AdvReac Type Severity Reaction Status Date / Time No Known Allergies Allergy Verified 12/04/22 22:16 Past Med/Surg History Medical History Alcohol use Alcohol withdrawal Anemia 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 [facility] (closed head injury) Chronic hyponatremia Hepatitis Hyponatremia Chronic Seizure EtOH withdrawal Thrombocytopenia Tobacco use Surgical History No pertinent past surgical history Family History Other Multiple myeloma Social History Smoking Status: Current every day smoker Tobacco Type: Pipe Cigarettes Per Day: pack a day; Second Hand Exposure: Yes; Do You Dip or Chew Tobacco: No; Hx Alcohol Use: Yes Alcohol type: beer Hx Substance Use: No Preferred Language: Upper Sorbian Communication Ability: Effective Hearing Ability: Normal Medical Chief Technician Required: No Beliefs That Will Affect Care: None marital status: Single Current Living Situation: Alone current occupational status: employed Feels Safe at Home: Yes Assistive Devices: None Review of Systems See HPI for pertinent positives & negatives. Physical Exam Vital Signs Vital Signs - 24 hr 12/22/22 23:44 12/23/22 00:48 12/23/22 00:52 Temperature 36.2 C L Temperature Source Temporal Artery Scan Pulse Rate 115 H 86 Pulse Rate [Finger] Respiratory Rate 20 Blood Pressure 137/81 Blood Pressure [Left Arm] Blood Pressure Mean 99 Blood Pressure Mean [Left Arm] Pulse Oximetry 97 94 Oxygen Delivery Method Room Air Room Air Sepsis Recent Fever Within 48 Hours No Sepsis New/Unexplained Change in Mental Status No Sepsis Action Taken by Nursing No Action Required 12/23/22 02:12 Temperature Temperature Source Pulse Rate Pulse Rate [Finger] 82 Respiratory Rate 20 Blood Pressure Blood Pressure [Left Arm] 115/75 Blood Pressure Mean Blood Pressure Mean [Left Arm] 88 Pulse Oximetry 98 Oxygen Delivery Method Room Air Sepsis Recent Fever Within 48 Hours Sepsis New/Unexplained Change in Mental Status Sepsis Action Taken by Nursing VITALS: Vitals are noted on the nurse's note and reviewed by myself. GENERAL: Non toxic, no acute distress, non-diaphoretic. SKIN: Capillary refill <2 sec. EYES: PERRLA. EOMI. Conjunctivae without injection, sclerae without icterus. NOSE: Patent without discharge. MOUTH: Mucous membranes moist. Uvula midline. Airway patent. NECK: Supple without nuchal rigidity. HEART: Regular rate and rhythm without murmurs gallops or rubs. LUNGS: Clear to auscultation bilaterally without wheezes, rales or rhonchi. No retractions or accessory muscle use. ABDOMEN: Positive bowel sounds x 4. Marked abdominal distention with ascites. Diffusely tender to palpation, worse in the epigastric area. Chao sign negative. No guarding or rebound tenderness. No focal RLQ or LLQ tenderness. MUSCULOSKELETAL: No pitting edema, but does have minimal bilateral lower extremity edema. Bilateral calves are nontender to palpation. Negative Homans' sign. NEURO: Patient was alert and oriented to person place and time. No asterixis. No focal neurological deficits. Course Administered Medications Albumin Human (Albumin 25%) 25 gm in 100 mls @ 50 mls/hr IV Q8H MEMO Stop: 12/26/22 08:59 Last Admin: 12/23/22 08:07 Dose: 50 mls/hr Documented By: TONY Discontinued Medications Gabapentin (Gabapentin 600 Mg Tab) 1,200 mg PO NOW ONE Stop: 12/23/22 06:14 Last Admin: 12/23/22 08:04 Dose: 1,200 mg Documented By: TONY Sodium Chloride (Nss) 250 mls @ 999 mls/hr IV .Q16M ONE Stop: 12/23/22 01:57 Last Admin: 12/23/22 02:36 Dose: Not Given Documented By: ADARSH Sodium Chloride (Nss 1000ml) 2,000 mls @ 999 mls/hr IV .Q2H1M ONE Stop: 12/23/22 03:51 Last Infusion: 12/23/22 06:07 Dose: 0 mls/hr Documented By: [id number] Admin: 12/23/22 02:45 Dose: 999 mls/hr Documented By: ADARSH Thiamine HCl 100 mg/ Syringe 10 mls @ 2 mls/min IV NOW STA Stop: 12/23/22 02:26 Last Admin: 12/23/22 02:45 Dose: 2 mls/min Documented By: ADARSH Albumin Human (Albumin 25%) 25 gm in 100 mls @ 50 mls/hr IV ONE ONE Stop: 12/23/22 04:20 Last Infusion: 12/23/22 04:38 Dose: 0 mls/hr Documented By: Admin: 12/23/22 02:41 Dose: 50 mls/hr Documented By: ADARSH Ceftriaxone Sodium (Rocephin) 2,000 mg in 70 mls @ 140 mls/hr IV NOW STA Stop: 12/23/22 04:00 Last Infusion: 12/23/22 08:04 Dose: 0 mls/hr Documented By: Admin: 12/23/22 06:15 Dose: 140 mls/hr Documented By: MILLA Ioversol (Optiray 320 100ml) 100 ml IV ONCE ONE Stop: 12/23/22 02:03 Last Admin: 12/23/22 02:04 Dose: 93 ml Documented By: DESI Ipratropium [place] (Ipratropium [place] Neb Soln 0.02% 2.5 Ml Vial) 0.5 mg INH NOW STA Stop: 12/23/22 03:32 Last Admin: 12/23/22 04:03 Dose: 0.5 mg Documented By: ANGELINA Levalbuterol HCl (Levalbuterol 1.25 Mg/3 Ml Neb) 1.25 mg NEB NOW STA Stop: 12/23/22 03:32 Last Admin: 12/23/22 04:03 Dose: 1.25 mg Documented By: ANGELINA Potassium Chloride (Potassium Chloride Crtab 20 Meq Tabcr) 40 meq PO NOW STA Stop: 12/23/22 02:20 Last Admin: 12/23/22 02:39 Dose: 40 meq Documented By: ADARSH Medical Decision Making Differential Diagnosis Differential diagnosis includes ascites, decompensated alcoholic cirrhosis, SBP, hepatitis, pancreatitis, cholecystitis, cholelithiasis, appendicitis, kidney stone, pyelonephritis, UTI, gastritis, gastroenteritis, mesenteric adenitis, obstruction, constipation, hernia, abdominal abscess, perforation, dive rticulitis, IBD, ischemic colitis, abdominal aortic aneurysm, testicular torsion, prostatitis, or others. Laboratory Data Attestation: I reviewed the patient's lab results. 12/23/22 00:39 12/23/22 00:39 Lab Results 12/23/22 12/23/22 12/23/22 Range/Units 00:39 00:39 00:39 WBC 7.94 (4.8-10.8) K/ul RBC 3.22 L (4.70-6.10) M/uL Hgb 11.6 L (14.0-18.0) g/dl Hct 32.2 L (42.0-52.0) % MCV 100.0 (80.0-100.0) fL MCH 36.0 H (25.0-34.0) pg MCHC 36.0 (32.0-36.0) g/dL RDW Std Deviation 46.5 H (36.4-46.3) fL RDW Coeff of Randall 12.8 (11.5-14.5) % Plt Count 377 (130-400) K/uL MPV 8.8 L (9.4-12.4) fL Immature Gran % (Auto) 0.3 % Neut % (Auto) 46.0 % Lymph % (Auto) 30.4 % [place] % (Auto) 12.1 % Eos % (Auto) 8.9 % Baso % (Auto) 2.3 % Neut # (Auto) 3.66 (1.40-6.50) K/uL Lymph # (Auto) 2.41 (1.2-3.4) K/uL [place] # (Auto) 0.96 H (0.11-0.59) K/uL Eos # (Auto) 0.71 H (0-0.50) K/uL Baso # (Auto) 0.18 (0-0.2) K/uL Immature Gran # (Auto) 0.02 (0.01-0.20) K/uL PT 13.0 H (9.0-12.0) Seconds INR 1.2 H (0.9-1.1) Sodium 135 L (136-145) mmol/L Potassium 3.2 L (3.5-5.1) mmol/L Chloride 99 (98-107) mmol/L Carbon Dioxide 26 (21-32) mmol/L Anion Gap 10 (3-11) BUN 2 L (6-23) mg/dl Creatinine 0.66 (0.6-1.4) mg/dl Est Cr Clr Drug Dosing 139.4 ml/min Est GFR ( Amer) 141.2 ml/min Est GFR (Non-Af Amer) 121.8 ml/min BUN/Creatinine Ratio 3.0 L (10-20) Glucose 60 L (70-99(Fasting)) mg/dl Lactate (0.4-2.0) mmol/L Calcium 8.3 L (8.6-10.3) mg/dl Magnesium 1.7 (1.7-2.4) mg/dl Total Bilirubin 2.0 H (0.2-1.0) mg/dl AST 58 H (13-39) U/L ALT 25 (7-52) U/L Alkaline Phosphatase 245 H (34-104) U/L Troponin I High Sens 10.6 (0-20) pg/ml Total Protein 6.8 (6.0-8.3) gm/dl Albumin 2.8 L (3.4-5.0) gm/dl Globulin 4.0 (2.5-4.0) gm/dl Albumin/Globulin Ratio 0.7 L (0.9-2) Lipase 36 (11-82) U/L Urine Color Urine Appearance (Clear) Urine pH (4.5-7.5) Ur Specific Harper (1.000-1.030) Urine Protein (Negative) Urine Glucose (UA) (Negative) Urine Ketones (Negative) Urine Blood (Negative) Urine Nitrite (Negative) Urine Bilirubin (Negative) Urine Urobilinogen (Negative) Ur Leukocyte Esterase (Negative) Urine WBC (Auto) (0-5) /hpf Urine RBC (Auto) (0-4) /hpf U Hyaline Cast (Auto) (0-5) /lpf U Epithel Cells (Auto) (0-5) /lpf Urine Bacteria (Auto) (Negative) Ethyl Alcohol mg/dL (<10.0) mg/dl SARS-CoV-2, RNA, NAAT (NEGATIVE) 12/23/22 12/23/22 12/23/22 Range/Units 00:39 00:39 01:33 WBC (4.8-10.8) K/ul RBC (4.70-6.10) M/uL Hgb (14.0-18.0) g/dl Hct (42.0-52.0) % MCV (80.0-100.0) fL MCH (25.0-34.0) pg MCHC (32.0-36.0) g/dL RDW Std Deviation (36.4-46.3) fL RDW Coeff of Randall (11.5-14.5) % Plt Count (130-400) K/uL MPV (9.4-12.4) fL Immature Gran % (Auto) % Neut % (Auto) % Lymph % (Auto) % [place] % (Auto) % Eos % (Auto) % Baso % (Auto) % Neut # (Auto) (1.40-6.50) K/uL Lymph # (Auto) (1.2-3.4) K/uL [place] # (Auto) (0.11-0.59) K/uL Eos # (Auto) (0-0.50) K/uL Baso # (Auto) (0-0.2) K/uL Immature Gran # (Auto) (0.01-0.20) K/uL PT (9.0-12.0) Seconds INR (0.9-1.1) Sodium (136-145) mmol/L Potassium (3.5-5.1) mmol/L Chloride (98-107) mmol/L Carbon Dioxide (21-32) mmol/L Anion Gap (3-11) BUN (6-23) mg/dl Creatinine (0.6-1.4) mg/dl Est Cr Clr Drug Dosing ml/min Est GFR ( Amer) ml/min Est GFR (Non-Af Amer) ml/min BUN/Creatinine Ratio (10-20) Glucose (70-99(Fasting)) mg/dl Lactate 2.7 H* (0.4-2.0) mmol/L Calcium (8.6-10.3) mg/dl Magnesium (1.7-2.4) mg/dl Total Bilirubin (0.2-1.0) mg/dl AST (13-39) U/L ALT (7-52) U/L Alkaline Phosphatase (34-104) U/L Troponin I High Sens (0-20) pg/ml Total Protein (6.0-8.3) gm/dl Albumin (3.4-5.0) gm/dl Globulin (2.5-4.0) gm/dl Albumin/Globulin Ratio (0.9-2) Lipase (11-82) U/L Urine Color Urine Appearance (Clear) Urine pH (4.5-7.5) Ur Specific Harper (1.000-1.030) Urine Protein (Negative) Urine Glucose (UA) (Negative) Urine Ketones (Negative) Urine Blood (Negative) Urine Nitrite (Negative) Urine Bilirubin (Negative) Urine Urobilinogen (Negative) Ur Leukocyte Esterase (Negative) Urine WBC (Auto) (0-5) /hpf Urine RBC (Auto) (0-4) /hpf U Hyaline Cast (Auto) (0-5) /lpf U Epithel Cells (Auto) (0-5) /lpf Urine Bacteria (Auto) (Negative) Ethyl Alcohol mg/dL 190.7 H (<10.0) mg/dl SARS-CoV-2, RNA, NAAT NEGATIVE (NEGATIVE) 12/23/22 Range/Units 02:16 WBC (4.8-10.8) K/ul RBC (4.70-6.10) M/uL Hgb (14.0-18.0) g/dl Hct (42.0-52.0) % MCV (80.0-100.0) fL MCH (25.0-34.0) pg MCHC (32.0-36.0) g/dL RDW Std Deviation (36.4-46.3) fL RDW Coeff of Randall (11.5-14.5) % Plt Count (130-400) K/uL MPV (9.4-12.4) fL Immature Gran % (Auto) % Neut % (Auto) % Lymph % (Auto) % [place] % (Auto) % Eos % (Auto) % Baso % (Auto) % Neut # (Auto) (1.40-6.50) K/uL Lymph # (Auto) (1.2-3.4) K/uL [place] # (Auto) (0.11-0.59) K/uL Eos # (Auto) (0-0.50) K/uL Baso # (Auto) (0-0.2) K/uL Immature Gran # (Auto) (0.01-0.20) K/uL PT (9.0-12.0) Seconds INR (0.9-1.1) Sodium (136-145) mmol/L Potassium (3.5-5.1) mmol/L Chloride (98-107) mmol/L Carbon Dioxide (21-32) mmol/L Anion Gap (3-11) BUN (6-23) mg/dl Creatinine (0.6-1.4) mg/dl Est Cr Clr Drug Dosing ml/min Est GFR ( Amer) ml/min Est GFR (Non-Af Amer) ml/min BUN/Creatinine Ratio (10-20) Glucose (70-99(Fasting)) mg/dl Lactate (0.4-2.0) mmol/L Calcium (8.6-10.3) mg/dl Magnesium (1.7-2.4) mg/dl Total Bilirubin (0.2-1.0) mg/dl AST (13-39) U/L ALT (7-52) U/L Alkaline Phosphatase (34-104) U/L Troponin I High Sens (0-20) pg/ml Total Protein (6.0-8.3) gm/dl Albumin (3.4-5.0) gm/dl Globulin (2.5-4.0) gm/dl Albumin/Globulin Ratio (0.9-2) Lipase (11-82) U/L Urine Color Yellow Urine Appearance Cloudy A (Clear) Urine pH 6.0 (4.5-7.5) Ur Specific Harper 1.004 (1.000-1.030) Urine Protein Negative (Negative) Urine Glucose (UA) Negative (Negative) Urine Ketones Negative (Negative) Urine Blood Negative (Negative) Urine Nitrite Negative (Negative) Urine Bilirubin Negative (Negative) Urine Urobilinogen Negative (Negative) Ur Leukocyte Esterase Negative (Negative) Urine WBC (Auto) 0 (0-5) /hpf Urine RBC (Auto) 0-4 (0-4) /hpf U Hyaline Cast (Auto) 0 (0-5) /lpf U Epithel Cells (Auto) 0-5 (0-5) /lpf Urine Bacteria (Auto) Negative (Negative) Ethyl Alcohol mg/dL (<10.0) mg/dl SARS-CoV-2, RNA, NAAT (NEGATIVE) Imaging Data Radiologist's Impression: Chest X-Ray 12/23/22 00:16 XR chest 1V portable HISTORY: Shortness of breath. COMPARISON: Chest 12/05/2022. FINDINGS: No pneumothorax or no pleural effusions. A few small patchy bibasilar densities are noted. The heart is normal in size. No evidence for pulmonary edema. There are low lung volumes. No acute fractures identified. IMPRESSION: A few small patchy bibasilar densities. This may represent atelectasis or pneumonia. ACT 112: Negative or not required by law. Electronically signed by: Jhoan Obregon M.D. 12/23/2022 7:59 AM Abdomen/Pelvis CT 12/23/22 01:41 CT OF THE ABDOMEN AND PELVIS WITH CONTRAST CLINICAL HISTORY: Abdominal pain. Ascites. COMPARISON STUDY: CT of the abdomen and pelvis December 04, 2022. Abdominal ultrasound December 06, 2022. TECHNIQUE: Following IV administration of 93 mL of Optiray, axial images of the abdomen and pelvis were obtained from the lung bases to the proximal femurs. Images were reviewed in the axial, sagittal, and coronal planes. IV contrast was administered without complication. Automated exposure control was utilized for the study. A dose lowering technique was utilized adhering to the principles of ALARA. CT DOSE: 733.12 mGy.cm FINDINGS: There are mild subpleural groundglass opacities within the lower lungs. No pneumatosis, free air or portal venous gas is present. Large volume abdominal and pelvic ascites is present. There is hepatic steatosis. There is subtle nodularity of the liver surface. This favors cirrhosis. Recanalized periumbilical vein is noted. There are small esophageal varices. The main, left and right portal veins are patent. No hepatic lesions are identified on venous phase exam. Spleen, adrenal glands, kidneys and pancreas are unremarkable. There is no hydronephrosis. There is no evidence for a bowel obstruction. The appendix is normal. No fluid collection is present. There is no abdominal or pelvic lymphadenopathy. No acute fractures are identified. Size of the spleen is normal. IMPRESSION: 1. Hepatic steatosis and suspected cirrhosis. Large volume ascites. Small varices. 2. Mild groundglass opacities within the lower lungs. These could reflect a mild infectious process or atelectasis. 3. No bowel obstruction. Normal appendix. ACT 112: Negative or not required by law. Electronically signed by: Octavio Montes M.D. 12/23/2022 6:36 AM MDM Narrative I examined the patient. The patient has significant ascites on exam. He has a history of alcoholic cirrhosis and has returned to drinking over the past week after a short period of sobriety per patient. He last required a paracentesis on 12/05/2022. His diuretics were recently increased, but his ascites continued to accumulate. He is now having abdominal pain as well as shortness of breath from the ascites. An IV lock was placed and labs were drawn. He was given a total of 2 L of normal saline solution ER due to his elevated lactate level. He declined any medication for pain while in the emergency department. He was given Rocephin 2 g IV by the admitting team. EKG was interpreted by myself and shows normal sinus rhythm at 91 bpm with an incomplete right bundle branch block with no acute ST or T wave elevation or depression. White blood cell count normal at 7.94. Hemoglobin stable at 11.6. Platelet count normal at 377. INR 1.2. Magnesium normal at 1.7. Sodium 135, potassium 3.2, total bilirubin 2.0, AST 58, ALT normal at 25, alk phos 245. These labs all appear stable or slightly improved from previous labs. Lipase 36. Medical alcohol level 190.7. Urinalysis without evidence for UTI. COVID- negative. Lactate 2.7 with improvement to 2.2 after the IV fluids. Chest x-ray was interpreted by myself and read by radiology after the patient was admitted and shows a few small patchy bibasilar densities which may represent atelectasis or pneumonia. CT scan of the abdomen and pelvis with IV contrast was reviewed by myself and read by radiology after the patient was admitted shows hepatic steatosis and suspected cirrhosis with large volume ascites and small varices. Mild groundglass opacities within the lower lungs which could represent mild infectious process or atelectasis. The patient will require admission for further management of his ascites. I spoke with the on-call hospitalist who agreed to admit the patient for further evaluation and treatment. Please refer to their dictation for further details. The patient was admitted in stable condition. Impression & Plan Decompensation of cirrhosis of liver, Abdominal ascites Discharge Plan Visit Data Chief Complaint: Abdominal Pain Stated Complaint: SWELLING IN ABDOMINAL,HARD TO BREATH ED Provider: Brit Espinoza ED Midlevel Provider: Shana Grissom. Discharge Problem: Decompensation of cirrhosis of liver, Abdominal ascites Patient Disposition: Admitted As Inpatient Condition: Good Discharge Instructions Interventions: ED Discharge Assessment Last Done: 12/23/22 05:15
[2022-12-23 01:20] LABS: Basophils # (auto) 0.18 K/uL (0-0.2); Basophils % (auto) 2.3 %; Eosinophils # (auto) 0.71 K/uL (0-0.50); Eosinophils % (auto) 8.9 %; Hematocrit (blood only) 32.2 % (42.0-52.0); Hemoglobin 11.6 g/dl (14.0-18.0); Immature Granulocytes # (auto) 0.02 K/uL (0.01-0.20); Immature Granulocytes % (auto) 0.3 %; Lymphocytes # (auto) 2.41 K/uL (1.2-3.4); Lymphocytes % (auto) 30.4 %; Mean Platelet Volume 8.8 fL (9.4-12.4); Monocytes # (auto) 0.96 K/uL (0.11-0.59); Monocytes % (auto) 12.1 %; Neutrophils # (auto) 3.66 K/uL (1.40-6.50); Platelet Count 377 K/uL (130-400); RDW Coefficient of Variation 12.8 % (11.5-14.5); RDW Standard Deviation 46.5 fL (36.4-46.3); Red Blood Count 3.22 M/uL (4.70-6.10); White Blood Count 7.94 K/ul (4.8-10.8)
[2022-12-23 01:27] LABS: Albumin Globulin Ratio 0.7 (0.9-2); Albumin Level 2.8 gm/dl (3.4-5.0); Calcium 8.3 mg/dl (8.6-10.3); Creatinine Clr Calc Pharmacy 139.4 ml/min; Est GFR (African American) 141.2 ml/min; Est GFR (Non-African American) 121.8 ml/min; Magnesium 1.7 mg/dl (1.7-2.4); Potassium 3.2 mmol/L (3.5-5.1); Total Protein 6.8 gm/dl (6.0-8.3)
[2022-12-23 01:33] LABS: Troponin I High Sensitivity 10.6 pg/ml (0-20)
[2022-12-23 01:35] LABS: INR 1.2 (0.9-1.1)
[2022-12-23] MEDS ORDERED: SODIUM CHLORIDE 0.9% 250 ML IV ONE (01:42)
[2022-12-23] MEDS ORDERED: SODIUM CHLORIDE 0.9% 1000ML 2,000 ML IV ONE (01:51)
[2022-12-23] MEDS ORDERED: OPTIRAY 320 100ml IV ONE (02:02)
[2022-12-23] MEDS ORDERED: POTASSIUM CHLORIDE CRTAB 20 MEQ TABCR PO STA (02:19)
[2022-12-23] MEDS ORDERED: ALBUMIN 25% 25 GM/100 ML VIAL IV ONE (02:21)
[2022-12-23] MEDS ORDERED: THIAMINE HCL 100 MG in SYRINGE 9 ML IV STA (02:22)
[2022-12-23 02:25] LABS: Appearance Urine Cloudy (Clear); Bilirubin Urine Negative (Negative); Blood Urine Negative (Negative); Color Urine Yellow; Glucose Urine UA Negative (Negative); Ketones Urine Negative (Negative); Leukocyte Esterase Urine Negative (Negative); Nitrite Urine Negative (Negative); Protein Urine Negative (Negative); Specific Gravity Urine 1.004 (1.000-1.030); Urobilinogen Urine Negative (Negative)
[2022-12-23 02:46] LABS: Bacteria Urine Automated Negative (Negative); Cast Urine Automated 0 /lpf (0-5); Epithelial Cell Urine Auto 0-5 /lpf (0-5); RBC Urine Automated 0-4 /hpf (0-4); WBC Urine Automated 0 /hpf (0-5)
[2022-12-23] MEDS ORDERED: cefTRIAXone SODIUM 2,000 MG/70 ML BAG IV STA (03:31)
[2022-12-23] MEDS ORDERED: XOPENEX/ATROVENT 1.25mg/0.5MG NEB COMBO NEB STA (03:31)
[2022-12-23] MEDS ORDERED: LEVALBUTEROL 1.25 MG/3 ML NEB NEB STA (03:31)
[2022-12-23] MEDS ORDERED: IPRATROPIUM BROMIDE NEB SOLN 0.02% 2.5 ML VIAL INH STA (03:31)
--- NOTE | 2022-12-23 03:32 | History & Physical Report ---
Date of Service December 23, 2022 Assessment & Plan (1) Decompensation of cirrhosis of liver: Plan: hx alcoholic cirrhosis possible SBP given abdominal pain complaints, no overt sepsis for now Medical noncompliance history alcohol withdrawal seizures Alcoholic hepatitis, good prognosis with computed Maddrey's DF score of 6 SAH, intracranial aneurysm chronic hyponatremia secondary to alcoholic liver disease emphysema as per records, baseline wheezing on exam chronic anemia, hemoglobin at baseline Hypokalemia secondary to diuretic Rx ongoing alcohol/ tobacco abuse Medical telemetry Ceftriaxone, albumin for possible SBP GI consult Re: Decompensated alcoholic cirrhosis Follow CT abdomen pelvis result IR guided diagnostic/therapeutic paracentesis pending result DT precautions, KENNY S Replace potassium Nicotine patch as needed DVT prophylaxis. SCDs Re: history SAH Full code Text document was generated using [employer] voice recognition software. It may contain grammatical or spelling errors. Kindly contact undersigned for clarification of any documentation item in question. History of Present Illness Chief Complaint: Worsening abdominal pain/distention Primary Care Provider: Hannah Albrecht, Medical history significant for alcoholic cirrhosis, history alcohol withdrawal seizures, SAH, intracranial aneurysm, chronic hyponatremia, emphysema as per records, ongoing alcohol/ tobacco abuse, chronic anemia ( baseline hemoglobin 11) Last confinement December 05 to 2022 for hyponatremia and decompensated alcoholic cirrhosis. Patient discharged on diuretic Rx and 1.5 L fluid restriction. Increasing abdominal distention noted a few days after discharge. 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 Claims he was drinking as much as 4 L of water every day. Patient went back to drinking alcohol 2 weeks following discharge. Patient also taking OTC NSAIDs for chronic back pain. Patient seen at [facility] nephrology office on follow-up visit 4 days ago. Torsemide dose increased and Aldactone added to regimen. Worsening abdominal distention with pain, with chills. No unusual cough symptoms. Hard to breathe with abdominal distention as per patient. Usual back pain with radiation to left lower extremity. Patient consulted ER for worsening symptoms. 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 Allergies Allergy/AdvReac Type Severity Reaction Status Date / Time No Known Allergies Allergy Verified 12/04/22 22:16 Home Medications Medication Instructions Recorded Confirmed Type multivitamin 1 tab PO DAILY 12/04/22 12/04/22 History folic acid 1 mg tablet 1 mg PO QAM 30 days #30 tabs 12/08/22 Rx potassium chloride 20 mEq 20 meq PO BID 30 days #60 tabs 12/08/22 Rx tablet,extended release(part/cryst) thiamine HCl (vitamin B1) 100 mg 100 mg PO QAM 30 days #30 tabs 12/08/22 Rx tablet magnesium oxide 400 mg PO DAILY 12/23/22 12/23/22 History spironolactone 50 mg tablet 50 mg PO DAILY 12/23/22 12/23/22 History torsemide 10 mg tablet 40 mg PO DAILY 12/23/22 12/23/22 History Past Med/Surg History Medical History Alcohol use Alcohol withdrawal Anemia 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 [facility] (closed head injury) Chronic hyponatremia Hepatitis Hyponatremia Chronic Seizure EtOH withdrawal Thrombocytopenia Tobacco use Surgical History No pertinent past surgical history Family History Other Multiple myeloma Social History Smoking Status: Current every day smoker Tobacco Type: Pipe Cigarettes Per Day: pack a day; Second Hand Exposure: Yes; Do You Dip or Chew Tobacco: No; Hx Alcohol Use: Yes Alcohol type: beer Hx Substance Use: No Preferred Language: Macanese Communication Ability: Effective Hearing Ability: Normal 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 Beliefs That Will Affect Care: None marital status: Single Current Living Situation: Alone current occupational status: employed Feels Safe at Home: Yes Assistive Devices: None Review of Systems Review of Systems: As per HPI, all other systems reviewed and negative Physical Exam Physical Exam: GENERAL: Slightly uncomfortable, no respiratory distress SKIN: Pallor, warm HEENT: Pale palpebral conjunctivae, no ptosis, dry buccal mucosa NECK : Supple, no tenderness CHEST : Decreased breath sounds, scattered expiratory wheezes, no tenderness HEART : RRR, no obvious murmurs ABDOMEN: Marked distention, epigastric tenderness EXTREMITIES : Minimal LE swelling, no LE tenderness, no other conspicuous deformities noted NEUROLOGIC : coherent, no facial asymmetry, no other gross focality Results & Data Results & Data Vital Signs (Past 12 Hours) Vital Signs Temp Pulse Pulse Resp BP BP Pulse Ox 12/23/22 02:12 82 20 115/75 98 12/23/22 00:52 86 12/23/22 00:48 94 12/22/22 23:44 36.2 C L 115 H 20 137/81 97 O2 Del Method 12/23/22 02:12 Room Air 12/23/22 00:52 12/23/22 00:48 Room Air 12/22/22 23:44 Room Air Laboratory Results Laboratory Results WBC 7.94 K/ul (4.8-10.8) 12/23/22 00:39 RBC 3.22 M/uL (4.70-6.10) L 12/23/22 00:39 Hgb 11.6 g/dl (14.0-18.0) L 12/23/22 00:39 Hct 32.2 % (42.0-52.0) L 12/23/22 00:39 MCV 100.0 fL (80.0-100.0) 12/23/22 00:39 MCH 36.0 pg (25.0-34.0) H 12/23/22 00:39 MCHC 36.0 g/dL (32.0-36.0) 12/23/22 00:39 RDW Std Deviation 46.5 fL (36.4-46.3) H 12/23/22 00:39 RDW Coeff of Randall 12.8 % (11.5-14.5) 12/23/22 00:39 Plt Count 377 K/uL (130-400) 12/23/22 00:39 MPV 8.8 fL (9.4-12.4) L 12/23/22 00:39 Immature Gran % (Auto) 0.3 % 12/23/22 00:39 Neut % (Auto) 46.0 % 12/23/22 00:39 Lymph % (Auto) 30.4 % 12/23/22 00:39 Bullock % (Auto) 12.1 % 12/23/22 00:39 Eos % (Auto) 8.9 % 12/23/22 00:39 Baso % (Auto) 2.3 % 12/23/22 00:39 Neut # (Auto) 3.66 K/uL (1.40-6.50) 12/23/22 00:39 Lymph # (Auto) 2.41 K/uL (1.2-3.4) 12/23/22 00:39 Bullock # (Auto) 0.96 K/uL (0.11-0.59) H 12/23/22 00:39 Eos # (Auto) 0.71 K/uL (0-0.50) H 12/23/22 00:39 Baso # (Auto) 0.18 K/uL (0-0.2) 12/23/22 00:39 Immature Gran # (Auto) 0.02 K/uL (0.01-0.20) 12/23/22 00:39 PT 13.0 Seconds (9.0-12.0) H 12/23/22 00:39 INR 1.2 (0.9-1.1) H 12/23/22 00:39 Sodium 135 mmol/L (136-145) L 12/23/22 00:39 Potassium 3.2 mmol/L (3.5-5.1) L 12/23/22 00:39 Chloride 99 mmol/L (98-107) 12/23/22 00:39 Carbon Dioxide 26 mmol/L (21-32) 12/23/22 00:39 Anion Gap 10 (3-11) 12/23/22 00:39 BUN 2 mg/dl (6-23) L 12/23/22 00:39 Creatinine 0.66 mg/dl (0.6-1.4) 12/23/22 00:39 Est Cr Clr Drug Dosing 139.4 ml/min 12/23/22 00:39 Est GFR ( Amer) 141.2 ml/min 12/23/22 00:39 Est GFR (Non-Af Amer) 121.8 ml/min 12/23/22 00:39 BUN/Creatinine Ratio 3.0 (10-20) L 12/23/22 00:39 Glucose 60 mg/dl (70-99(Fasting)) L 12/23/22 00:39 Lactate 2.7 mmol/L (0.4-2.0) H* 12/23/22 01:33 Calcium 8.3 mg/dl (8.6-10.3) L 12/23/22 00:39 Magnesium 1.7 mg/dl (1.7-2.4) 12/23/22 00:39 Total Bilirubin 2.0 mg/dl (0.2-1.0) H 12/23/22 00:39 AST 58 U/L (13-39) H 12/23/22 00:39 ALT 25 U/L (7-52) 12/23/22 00:39 Alkaline Phosphatase 245 U/L (34-104) H 12/23/22 00:39 Troponin I High Sens 10.6 pg/ml (0-20) 12/23/22 00:39 Total Protein 6.8 gm/dl (6.0-8.3) 12/23/22 00:39 Albumin 2.8 gm/dl (3.4-5.0) L 12/23/22 00:39 Globulin 4.0 gm/dl (2.5-4.0) 12/23/22 00:39 Albumin/Globulin Ratio 0.7 (0.9-2) L 12/23/22 00:39 Lipase 36 U/L (11-82) 12/23/22 00:39 Urine Color Yellow 12/23/22 02:16 Urine Appearance Cloudy (Clear) A 12/23/22 02:16 Urine pH 6.0 (4.5-7.5) 12/23/22 02:16 Ur Specific [place] 1.004 (1.000-1.030) 12/23/22 02:16 Urine Protein Negative (Negative) 12/23/22 02:16 Urine Glucose (UA) Negative (Negative) 12/23/22 02:16 Urine Ketones Negative (Negative) 12/23/22 02:16 Urine Blood Negative (Negative) 12/23/22 02:16 Urine Nitrite Negative (Negative) 12/23/22 02:16 Urine Bilirubin Negative (Negative) 12/23/22 02:16 Urine Urobilinogen Negative (Negative) 12/23/22 02:16 Ur Leukocyte Esterase Negative (Negative) 12/23/22 02:16 Urine WBC (Auto) 0 /hpf (0-5) 12/23/22 02:16 Urine RBC (Auto) 0-4 /hpf (0-4) 12/23/22 02:16 U Hyaline Cast (Auto) 0 /lpf (0-5) 12/23/22 02:16 U Epithel Cells (Auto) 0-5 /lpf (0-5) 12/23/22 02:16 Urine Bacteria (Auto) Negative (Negative) 12/23/22 02:16 Ethyl Alcohol mg/dL 190.7 mg/dl (<10.0) H 12/23/22 00:39 SARS-CoV-2, RNA, NAAT NEGATIVE (NEGATIVE) 12/23/22 00:39 Diagnostic Findings Chest x-ray as per my interpretation atelectasis EKG as per my interpretation :Rate 90, NSR, normal axis, incomplete RBBB, T wave abnormalities lateral leads
[2022-12-23] MEDS ORDERED: PROMETHAZINE HCL 6.25 MG in SODIUM CHLORIDE 0.9% 50 ML IV PRN (03:36)
[2022-12-23] MEDS ORDERED: LORazepam 2 MG/1 ML VIAL IV PRN ×4 (03:36→06:13)
[2022-12-23] MEDS ORDERED: GABAPENTIN 600 MG TAB PO ONE (06:13)
[2022-12-23] MEDS ORDERED: GABAPENTIN 1200MG ALCOHOL WITHDRAWAL LOAD PO STA (06:13)
[2022-12-23] MEDS ORDERED: Ativan IV Alcohol Withdrawal--Active Protocol IV PRN (06:13)
--- NOTE | 2022-12-23 06:39 | CT Scan Report ---
CT OF THE ABDOMEN AND PELVIS WITH CONTRAST CLINICAL HISTORY: Abdominal pain. Ascites. COMPARISON STUDY: CT of the abdomen and pelvis December 04, 2022. Abdominal ultrasound December 06, 2022. TECHNIQUE: Following IV administration of 93 mL of Optiray, axial images of the abdomen and pelvis we re obtained from the lung bases to the proximal femurs. Images were reviewed in the axial, sagittal, and coronal planes. IV contrast was administered without complication. Automated exposure control wa s utilized for the study. A dose lowering technique was utilized adhering to the principles of ALARA . CT DOSE: 733.12 mGy.cm FINDINGS: There are mild subpleural groundglass opacities within the lower lungs. No pneumatosis, teddy e air or portal venous gas is present. Large volume abdominal and pelvic ascites is present. There is hepatic steatosis. There is subtle nodularity of the liver surface. This favors cirrhosis. Recanaliz ed periumbilical vein is noted. There are small esophageal varices. The main, left and right portal v eins are patent. No hepatic lesions are identified on venous phase exam. Spleen, adrenal glands, kidn eys and pancreas are unremarkable. There is no hydronephrosis. There is no evidence for a bowel obstr uction. The appendix is normal. No fluid collection is present. There is no abdominal or pelvic lymph adenopathy. No acute fractures are identified. Size of the spleen is normal. IMPRESSION: 1. Hepatic steatosis and suspected cirrhosis. Large volume ascites. Small varices. 2. Mild groundglass opacities within the lower lungs. These could reflect a mild infectious process o r atelectasis. 3. No bowel obstruction. Normal appendix. ACT 112: Negative or not required by law. Electronically signed by: Octavio Montes M.D. 12/23/2022 6:36 AM
--- NOTE | 2022-12-23 08:01 | XRay Report ---
XR chest 1V portable HISTORY: Shortness of breath. COMPARISON: Chest 12/05/2022. FINDINGS: No pneumothorax or no pleural effusions. A few small patchy bibasilar densities are noted. The heart is normal in size. No evidence for pulmonary edema. There are low lung volumes. No acute fr actures identified. IMPRESSION: A few small patchy bibasilar densities. This may represent atelectasis or pneumonia. ACT 112: Negative or not required by law. Electronically signed by: Jhoan Obregon M.D. 12/23/2022 7:59 AM
[2022-12-23] MEDS: ALBUMIN 25% 25 GM/100 ML VIAL IV SCH ×2 (08:07→17:10)
[2022-12-23] MEDS ORDERED: ENOXAPARIN INJ 30 MG/0.3 ML SYR SQ SCH (09:00)
[2022-12-23] MEDS: ACETAMINOPHEN 500 MG TAB PO PRN (09:32)
[2022-12-23] MEDS: NICOTINE 14 MG/24 HR PATCH TD SCH (09:33)
--- NOTE | 2022-12-23 09:58 | Gastrointestinal Consultation ---
Date of Consultation December 23, 2022 Assessment & Plan (1) Abdominal ascites: (2) Decompensation of cirrhosis of liver: Plan Discussed case with Dr. Gray who advised on plan. Patient with decompensated cirrhosis in the setting of ongoing etoh use. Patient is agitated during today's encounter. - proceed with paracentesis as ordered. - can continue with ceftriaxone 2000mg IV q daily ordered. - given electrolyte abnormalities, diuretics held. he follows with nephrology as an outpatient with this. -we discussed that ETOH should not be used to treat pain. I recommended he can use Tylenol q 6 hours as needed for pain with a total dose of 2000 mg daily. - recommend abstinence from all ETOH. We discussed that continued ETOH will worsen his condition and will worsen intermediate prognosis. - recommend hepatology evaluation as outpatient. History of Present Illness Reason for Consultation: Decompensated Cirrhosis Requesting Physician: Shun Mckeon MD Attending Physician: Clement Shelby MD History of Present Illness Patient is a 37 year old male who presented to the ED with complaints of abdominal swelling and shortness of breath. He tells me that his last paracentesis was 3 weeks ago. Recently he tells me he was seen at [facility] nephrology and was started on aldactone 50mg once daily, torsemide 20mg once daily, folic acid 1gm daily, and potassium 20meq bid. He tells me that his fluid he has currently has been building up since last paracentesis. He tells me he has had continued ETOH use and drinks 2-3 Beers a day that he uses to treat pain. Patient is agitated while discussing his history and is short with his answers. CT 12/23 with large amount of ascites. MELD score 11. paracentesis has been ordered. 12/23 INR 1.2, t bili 2, ast 58, alt 25, alk phos 245, NH3 21, sodium 135, potassium 3.5. Allergies Allergy/AdvReac Type Severity Reaction Status Date / Time No Known Allergies Allergy Verified 12/04/22 22:16 Home Medications Medication Instructions Recorded Confirmed Type multivitamin 1 tab PO DAILY 12/04/22 12/04/22 History folic acid 1 mg tablet 1 mg PO QAM 30 days #30 tabs 12/08/22 Rx potassium chloride 20 mEq 20 meq PO BID 30 days #60 tabs 12/08/22 Rx tablet,extended release(part/cryst) thiamine HCl (vitamin B1) 100 mg 100 mg PO QAM 30 days #30 tabs 12/08/22 Rx tablet magnesium oxide 400 mg PO DAILY 12/23/22 12/23/22 History spironolactone 50 mg tablet 50 mg PO DAILY 12/23/22 12/23/22 History torsemide 10 mg tablet 40 mg PO DAILY 12/23/22 12/23/22 History Patient History Medical History Alcohol use Alcohol withdrawal Anemia 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 [facility] (closed [facility] injury) Chronic hyponatremia Hepatitis Hyponatremia Chronic Seizure EtOH withdrawal Thrombocytopenia Tobacco use Surgical History No pertinent past surgical history Family History Other Multiple myeloma Social History Smoking Status: Current every day smoker Tobacco Type: Pipe Cigarettes Per Day: pack a day; Second Hand Exposure: Yes; Do You Dip or Chew Tobacco: No; Hx Alcohol Use: Yes Alcohol type: beer Hx Substance Use: No Preferred Language: Arabic Communication Ability: Effective Hearing Ability: Normal T[employer] Groover Required: No Beliefs That Will Affect Care: None marital status: Single Current Living Situation: Alone current occupational status: employed Feels Safe at Home: Yes Assistive Devices: None Review of Systems Review of Systems: patient is agitated. ROS deferred to not provoke further agitation. Physical Exam Constitutional: WD/WN, vitals as above Respiratory: normal respiratory effort, lungs clear to auscultation Cardiovascular: RRR, lower extremity edema b/l Gastrointestinal (Abdomen): abdomen distended. ascites noted. diffuse tenderness. normal bowel sounds. Skin: no rashes, warm and dry Psychiatric: Orientation: alert and oriented x 3 agitated. Results & Data Vital Signs (Past 12 Hours) Vital Signs Temp Pulse Pulse Resp BP BP BP 12/23/22 08:31 12/23/22 07:15 97.7 F 105 H 20 142/91 H 12/23/22 06:10 80 12/23/22 05:54 12/23/22 05:54 97.7 F 89 18 119/88 12/23/22 04:11 88 20 124/84 12/23/22 02:12 82 20 115/75 12/23/22 00:52 86 12/23/22 00:48 12/22/22 23:44 97.2 F L 115 H 20 137/81 Pulse Ox O2 Del Method 12/23/22 08:31 Room Air 12/23/22 07:15 93 Room Air 12/23/22 06:10 12/23/22 05:54 Room Air 12/23/22 05:54 93 Room Air 12/23/22 04:11 93 Room Air 12/23/22 02:12 98 Room Air 12/23/22 00:52 12/23/22 00:48 94 Room Air 12/22/22 23:44 97 Room Air PG Care Time/CCT Total # of Minutes Spent Total Time Spent with Patient: Total time spent is greater than 50% in coordination of care (as documented) at patient's floor/unit and/or counseling patient: Coding Level of Care Code 65931 IN/OBS CONSULT LVL 3,45M Diagnoses Abdominal ascites R18.8 Decompensation of cirrhosis of liver K72.90; K74.60 Time Spent (min) 48
[2022-12-23] MEDS: MAGNESIUM OXIDE 400 MG TAB PO SCH (11:07)
[2022-12-23] MEDS: GABAPENTIN 600 MG TAB PO SCH ×2 (12:18→17:11)
[2022-12-23] MEDS: oxyCODONE HCL IR 5 MG TAB (IMMEDIATE RELEASE) PO PRN ×2 (12:20→19:31)
--- NOTE | 2022-12-23 15:27 | Ultrasound Report ---
ULTRASOUND-GUIDED DIAGNOSTIC AND THERAPEUTIC PARACENTESIS: HISTORY: Ascites. Procedure: The procedure and its risks, benefits and alternatives were discussed with the patient and written informed consent was obtained. Preliminary ultrasound of the abdomen was performed to determ ine a safe needle entry site. The right lower quadrant was prepped and draped in the usual sterile fashion. 1% Lidocaine was used f or local anesthesia. A paracentesis needle-sheath was inserted into the peritoneal space using ultras ound guidance. The needle was removed and the sheath was connected to tubing and a vacuum suction dev ice. A total of 3.2 liters of cloudy yellow ascites was aspirated. The sheath was removed and a steri le dressing applied. The patient tolerated the procedure well and there were no immediate complications. IMPRESSION: Ultrasound-guided diagnostic and therapeutic paracentesis with aspiration of 3.2 liters of ascites. 1 L was sent to the laboratory at the request of the referring physician. ACT 112: Negative or not required by law. Electronically signed by: Jhoan Obregon M.D. 12/23/2022 3:26 PM
--- NOTE | 2022-12-23 17:05 | Nephrology Consultation ---
Date of Consultation December 23, 2022 Assessment & Plan (1) Hyponatremia: stable/acceptable sodium in setting of hypervolemic hyponatremia from alcoholic liver disease -when taking regular diet needs FR -continue to hold diuretics for now but resume likely 12/24 -continue albumin overnight s/p paracentesis -ordered recheck BMP this evening >> sodium has normalized -maintain eukalemia (2) Decompensation of cirrhosis of liver: per GI and hospitalist; for paracentesis; pt actively using EtOH and tells me he's not interested in liver transplant History of Present Illness Reason for Consultation: hyponatremia Requesting Physician: Dr Shelby Attending Physician: Clement Shelby MD History of Present Illness 37 y/o M whom I'm asked to see for hyponatremia was admitted overnight for decompensated alcoholic liver cirrhosis after presenting with increasing abdomin al distension. Presenting sodium 135 at 0100 today. Past medical history includes alcoholic liver cirrhosis complicated by ascites and hepatitis and past withdrawal seizures (most recently 06/2022), active alcohol and tobacco abuse, subarachnoid hemorrhage 04/2022, intracranial aneurysm, emphysema, chronic hyponatremia. Admitted here June 2021 with alcohol withdrawal seizures. 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 Admitted here recently 12/05- for hyponatremia with presenting sodium 115 and decompensated alcoholic cirrhosis. Patient discharged on torsemide 10 mg daily, K 20 mEq bid, and 1.5 L fluid re striction. Dr Mcdonough saw the pt 12/19 in nephro clinic > pt c/o increased ascites and challenges following FR. Pt also reported drinking a few beers nightly, including on 12/18. Torsemide upped to 40 mg daily and pt started on spironolactone 50 mg daily w/ plan for f/u labs. 12/13 sodium in [employer] system is 134, K 3.6, creat 0.6 Came to ER w/ increasing abdominal distension, chills; chronic back pain for which he'd been taking nsaids OTC; had been drinking up to 4L daily water prior to admission. Some worsening dyspnea attributed to abd distension, even after paracentesis though improved. The patient denies falls, n/v or musculoskeletal on ROS. stable chronic back pain. No change in UOP. Rest of ROS otherwise negative. diuretics held since pt had 4L paracentesis as well as IV contrast today. on clears currently. he had 2 L NS in ER; also getting 50 gm albumin q8hr Allergies Allergy/AdvReac Type Severity Reaction Status Date / Time No Known Allergies Allergy Verified 12/04/22 22:16 Home Medications Medication Instructions Recorded Confirmed Type multivitamin 1 tab PO DAILY 12/04/22 12/04/22 History folic acid 1 mg tablet 1 mg PO QAM 30 days #30 tabs 12/08/22 Rx potassium chloride 20 mEq 20 meq PO BID 30 days #60 tabs 12/08/22 Rx tablet,extended release(part/cryst) thiamine HCl (vitamin B1) 100 mg 100 mg PO QAM 30 days #30 tabs 12/08/22 Rx tablet magnesium oxide 400 mg PO DAILY 12/23/22 12/23/22 History spironolactone 50 mg tablet 50 mg PO DAILY 12/23/22 12/23/22 History torsemide 10 mg tablet 40 mg PO DAILY 12/23/22 12/23/22 History Patient History Medical History Alcohol use Alcohol withdrawal Anemia 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 [facility] (closed head injury) Chronic hyponatremia Hepatitis Hyponatremia Chronic Seizure EtOH withdrawal Thrombocytopenia Tobacco use Surgical History No pertinent past surgical history Family History Other Multiple myeloma Social History Smoking Status: Current every day smoker Tobacco Type: Pipe Cigarettes Per Day: pack a day; Second Hand Exposure: Yes; Do You Dip or Chew Tobacco: No; Hx Alcohol Use: Yes Alcohol type: beer Hx Substance Use: No Preferred Language: Togolese Communication Ability: Effective Hearing Ability: Normal Psychologist Social Required: No Beliefs That Will Affect Care: None marital status: Single Current Living Situation: Alone current occupational status: employed Feels Safe at Home: Yes Assistive Devices: None Review of Systems Review of Systems: All systems reviewed & are unremarkable except as noted in HPI & below Physical Exam Constitutional: well developed, + cachectic and cooperative; no acute distress Eyes: EOM intact bilaterally ENMT: Ears: no external ear abnormality Nose: no external nose abnormality Mouth: + dry oral mucous membranes Neck: no nuchal rigidity Respiratory: + labored breathing, able to speak in complete sentences, + tachypneic and + paradoxical thoraco-abdominal movement; no respiratory distress and no cough Auscultation: + diminished lung sounds, + crackles and + wheezes Cardiovascular: Rate/Rhythm: + tachycardic Extremities: no edema Gastrointestinal (Abdomen): Inspection/Auscultation: + abdomen distended and normal bowel sounds Percussion/Palpation: abdomen soft and + ascites; abdomen nontender Musculoskeletal: Extremities: strength 5/5 throughout Skin: no rashes, warm and dry no jaundice Neurologic: alonzo, fluent speech Psychiatric: Orientation: alert and oriented x 3 Results & Data Vital Signs (Past 12 Hours) Vital Signs Temp Pulse Pulse Resp BP BP Pulse Ox 12/23/22 14:02 97 H 12/23/22 15:12 36.5 C 112 H 18 143/95 H 94 12/23/22 11:08 36.6 C 66 16 98/49 L 99 12/23/22 08:31 12/23/22 07:15 36.5 C 105 H 20 142/91 H 93 12/23/22 06:10 80 12/23/22 05:54 12/23/22 05:54 36.5 C 89 18 119/88 93 O2 Del Method 12/23/22 14:02 12/23/22 15:12 Room Air 12/23/22 11:08 Room Air 12/23/22 08:31 Room Air 12/23/22 07:15 Room Air 12/23/22 06:10 12/23/22 05:54 Room Air 12/23/22 05:54 Room Air Laboratory Results 12/23/22 00:39 12/23/22 00:39
[2022-12-23] MEDS: NICOTINE POLACRILEX 2 MG GUM MT PRN ×2 (17:19→21:53)
[2022-12-23 19:27] LABS: Anion Gap 8 (3-11); BUN Creatinine Ratio 3.8 (10-20); Blood Urea Nitrogen 2 mg/dl (6-23); Calcium 8.8 mg/dl (8.6-10.3); Carbon Dioxide 25 mmol/L (21-32); Chloride 103 mmol/L (98-107); Creatinine Clr Calc Pharmacy 169.3 ml/min; Est GFR (African American) > 150.0 ml/min; Est GFR (Non-African American) 133.3 ml/min; Glucose 92 mg/dl (70-99(Fasting)); Potassium 3.7 mmol/L (3.5-5.1); Sodium 136 mmol/L (136-145)
[2022-12-23 19:50] LABS: Lyme Ab IgG w/WB Rflx Negative (Negative); Lyme Ab IgM w/WB Rflx Negative (Negative)
[2022-12-23] MEDS ORDERED: BENZONATATE 100 MG CAPSULE PO PRN (19:50)
[2022-12-23] MEDS ORDERED: ALBUT/IPRATROP 3MG/0.5MG NEB 3 ML VIAL NEB PRN (19:50)
[2022-12-23 20:00] LABS: Albumin Peritoneal Fluid < 1.5 gm/dl
[2022-12-23 20:05] LABS: Total Protein Peritoneal Fluid < 3.0 gm/dl
[2022-12-23] MEDS ORDERED: LORazepam 2 MG/1 ML VIAL IV STA (20:20)
[2022-12-23 20:49] LABS: Appearance Peritoneal Fluid Hazy; Color Peritoneal Fluid Yellow; Lymphocytes, Fluid 9 %; Mono,Macrophage,Mesothelial 83 %; Neutrophils, Fluid 8 %; RBC Peritoneal Fluid Auto < 2000 /uL; WBC Peritoneal Fluid Auto 160 /ul (0-300)
[2022-12-24] MEDS: ALBUMIN 25% 25 GM/100 ML VIAL IV SCH ×2 (00:49→10:48)
[2022-12-24] MEDS ORDERED: cefTRIAXone SODIUM 2,000 MG in DEXTROSE 5% 50 ML IV SCH (04:00)
[2022-12-24] MEDS ORDERED: LORazepam 2 MG/1 ML VIAL IV STA (04:21)
[2022-12-24] MEDS ORDERED: GABAPENTIN 600 MG TAB PO SCH (06:00)
--- NOTE | 2022-12-24 06:48 | Electrocardiogram Report ---
Test Reason : Blood Pressure : / mmHG Vent. Rate : 091 BPM Atrial Rate : 091 BPM P-R Int : 128 ms QRS Dur : 104 ms QT Int : 380 ms P-R-T Axes : 069 057 074 degrees QTc Int : 467 ms Normal sinus rhythm Incomplete right bundle branch block Borderline ECG When compared with ECG of 14-JUL-2022 23:26, No significant change Confirmed by Simon Milton ([id number]) on 12/24/2022 6:48:22 AM Referred By: REFERRED SELF Confirmed By:Simon Milton
[2022-12-24 07:23] LABS: Basophils # (auto) 0.13 K/uL (0-0.2); Eosinophils # (auto) 0.66 K/uL (0-0.50); Eosinophils % (auto) 10.2 %; Hematocrit (blood only) 30.9 % (42.0-52.0); Hemoglobin 11.5 g/dl (14.0-18.0); Immature Granulocytes # (auto) 0.01 K/uL (0.01-0.20); Immature Granulocytes % (auto) 0.2 %; Lymphocytes # (auto) 1.81 K/uL (1.2-3.4); Lymphocytes % (auto) 28.1 %; Mean Corpuscular Hemoglobin 36.1 pg (25.0-34.0); Mean Corpuscular Hgb Conc 37.2 g/dL (32.0-36.0); Mean Corpuscular Volume 96.9 fL (80.0-100.0); Mean Platelet Volume 9.1 fL (9.4-12.4); Monocytes # (auto) 0.82 K/uL (0.11-0.59); Monocytes % (auto) 12.7 %; Neutrophils # (auto) 3.02 K/uL (1.40-6.50); Neutrophils % (auto) 46.8 %; Platelet Count 276 K/uL (130-400); RDW Coefficient of Variation 12.4 % (11.5-14.5); RDW Standard Deviation 43.8 fL (36.4-46.3); Red Blood Count 3.19 M/uL (4.70-6.10); White Blood Count 6.45 K/ul (4.8-10.8)
[2022-12-24 07:37] LABS: Alanine Aminotransferase 13 U/L (7-52); Albumin Globulin Ratio 1.1 (0.9-2); Albumin Level 3.1 gm/dl (3.4-5.0); Alkaline Phosphatase 168 U/L (34-104); Anion Gap 5 (3-11); Aspartate Aminotransferase 30 U/L (13-39); BUN Creatinine Ratio 3.8 (10-20); Bilirubin,Total 1.7 mg/dl (0.2-1.0); Blood Urea Nitrogen 2 mg/dl (6-23); Calcium 8.3 mg/dl (8.6-10.3); Carbon Dioxide 27 mmol/L (21-32); Chloride 101 mmol/L (98-107); Creatinine Clr Calc Pharmacy 166.5 ml/min; Est GFR (African American) > 150.0 ml/min; Est GFR (Non-African American) 133.3 ml/min; Globulin 2.9 gm/dl (2.5-4.0); Glucose 95 mg/dl (70-99(Fasting)); Potassium 3.5 mmol/L (3.5-5.1); Sodium 133 mmol/L (136-145)
--- NOTE | 2022-12-24 07:48 | Hospitalist Progress Note ---
Date of Service December 24, 2022 Assessment & Plan (1) Decompensation of cirrhosis of liver: Plan: Ascites Hx alcoholic cirrhosis possible Spontaneous Bacterial Peritonitis- given abdominal pain complaints, no overt sepsis on admission Medical noncompliance history alcohol withdrawal seizures Alcoholic hepatitis, good prognosis with computed Maddrey's DF score of 6 S/p paracentesis - fluid analysis not c/w sbp Ceftriaxone, albumin for possible SBP started on admission - will stop now GI consult Re: Decompensated alcoholic cirrhosis pt should follow up w/ hepatology ad abstain from EtOH DT precautions, KENNY S - no signs of withdrawal at this time Chronic hyponatremia secondary to alcoholic liver disease - discussed w/ nephrology - restart diuretics - torsemide 40 mg daily and spironolactone 25 mg daily. emphysema as per records, baseline wheezing on exam SAH, intracranial aneurysm chronic anemia, hemoglobin at baseline Hypokalemia secondary to diuretic Rx- replete potassium ongoing alcohol/ tobacco abuse - counselling provided, Nicotine patch provided DVT prophylaxis. SCDs Re: history SAH Full code Admission and Anticipated Discharge Date Admission Date: December 23, 2022 Subjective Pt seen in follow up of abd. ascites S/p paracentesis yesterday Currently laying in bed in NAD - wants to be discharged today - discussed follow ups w/ pcp and GI/ hepatology Denies any chest pain shortness of breath fevers chills. Reports abdomen feels much better, denies any complaints. Review of Systems Review of Systems: All systems reviewed & are unremarkable except as noted in Subjective Physical Exam Physical Exam: GENERAL: slim young M in NAD HEENT: NC/ AT. Pale palpebral conjunctivae, no ptosis NECK : Supple, no tenderness CHEST : Decreased breath sounds, mild expiratory wheezes, no tenderness HEART : RRR, no obvious murmurs ABDOMEN: soft, + minimal distention (much improved now - s/p paracentesis), nontender NEUROLOGIC : alert oriented, answers appropriately, no facial asymmetry,moves extremities EXTREMITIES : Minimal LE swelling, no LE tenderness, moves extremities SKIN: Pallor, warm Results & Data Results & Data Vital Signs (Past 12 Hours) Vital Signs Temp Pulse Pulse Resp BP BP Pulse Ox 12/24/22 04:10 36.7 C 111 H 20 121/76 92 12/24/22 02:52 108 H 12/23/22 23:23 37.0 C 111 H 20 124/77 96 12/23/22 19:58 126 H 22 90 12/23/22 19:58 37.3 C 120 H 22 136/90 91 O2 Del Method 12/24/22 04:10 Room Air 12/24/22 02:52 12/23/22 23:23 Room Air 12/23/22 19:58 Room Air 12/23/22 19:58 Room Air Laboratory Results 12/24/22 12/24/22 12/23/22 Range/Units 06:52 06:52 18:38 WBC 6.45 (4.8-10.8) K/ul RBC 3.19 L (4.70-6.10) M/uL Hgb 11.5 L (14.0-18.0) g/dl Hct 30.9 L (42.0-52.0) % MCV 96.9 (80.0-100.0) fL MCH 36.1 H (25.0-34.0) pg MCHC 37.2 H (32.0-36.0) g/dL RDW Std Deviation 43.8 (36.4-46.3) fL RDW Coeff of Randall 12.4 (11.5-14.5) % Plt Count 276 (130-400) K/uL MPV 9.1 L (9.4-12.4) fL Immature Gran % (Auto) 0.2 % Neut % (Auto) 46.8 % Lymph % (Auto) 28.1 % Lincoln % (Auto) 12.7 % Eos % (Auto) 10.2 % Baso % (Auto) 2.0 % Neut # (Auto) 3.02 (1.40-6.50) K/uL Lymph # (Auto) 1.81 (1.2-3.4) K/uL Lincoln # (Auto) 0.82 H (0.11-0.59) K/uL Eos # (Auto) 0.66 H (0-0.50) K/uL Baso # (Auto) 0.13 (0-0.2) K/uL Immature Gran # (Auto) 0.01 (0.01-0.20) K/uL Sodium 133 L 136 (136-145) mmol/L Potassium 3.5 3.7 (3.5-5.1) mmol/L Chloride 101 103 (98-107) mmol/L Carbon Dioxide 27 25 (21-32) mmol/L Anion Gap 5 8 (3-11) BUN 2 L 2 L (6-23) mg/dl Creatinine 0.53 L 0.53 L (0.6-1.4) mg/dl Est Cr Clr Drug Dosing 166.5 169.3 ml/min Est GFR ( Amer) > 150.0 > 150.0 ml/min Est GFR (Non-Af Amer) 133.3 133.3 ml/min BUN/Creatinine Ratio 3.8 L 3.8 L (10-20) Glucose 95 92 (70-99(Fasting)) mg/dl Lactate (0.4-2.0) mmol/L Calcium 8.3 L 8.8 (8.6-10.3) mg/dl Total Bilirubin 1.7 H (0.2-1.0) mg/dl AST 30 (13-39) U/L ALT 13 (7-52) U/L Alkaline Phosphatase 168 H (34-104) U/L Total Protein 6.0 (6.0-8.3) gm/dl Albumin 3.1 L (3.4-5.0) gm/dl Globulin 2.9 (2.5-4.0) gm/dl Albumin/Globulin Ratio 1.1 (0.9-2) Fluid Neutrophils % % Fluid Lymphocytes % % Fluid Meso/Macro/Lincoln % % Fluid Comment Peritoneal Color Peritoneal Appearance Peritoneal WBC (Auto) (0-300) /ul Peritoneal RBC (Auto) /uL Peritoneal Tot Protein gm/dl Peritoneal Albumin gm/dl Lyme Disease IgG Ab (Negative) Lyme Disease IgM Ab (Negative) 12/23/22 12/23/22 12/23/22 Range/Units 08:00 08:00 07:58 WBC (4.8-10.8) K/ul RBC (4.70-6.10) M/uL Hgb (14.0-18.0) g/dl Hct (42.0-52.0) % MCV (80.0-100.0) fL MCH (25.0-34.0) pg MCHC (32.0-36.0) g/dL RDW Std Deviation (36.4-46.3) fL RDW Coeff of Randall (11.5-14.5) % Plt Count (130-400) K/uL MPV (9.4-12.4) fL Immature Gran % (Auto) % Neut % (Auto) % Lymph % (Auto) % Lincoln % (Auto) % Eos % (Auto) % Baso % (Auto) % Neut # (Auto) (1.40-6.50) K/uL Lymph # (Auto) (1.2-3.4) K/uL Lincoln # (Auto) (0.11-0.59) K/uL Eos # (Auto) (0-0.50) K/uL Baso # (Auto) (0-0.2) K/uL Immature Gran # (Auto) (0.01-0.20) K/uL Sodium (136-145) mmol/L Potassium (3.5-5.1) mmol/L Chloride (98-107) mmol/L Carbon Dioxide (21-32) mmol/L Anion Gap (3-11) BUN (6-23) mg/dl Creatinine (0.6-1.4) mg/dl Est Cr Clr Drug Dosing ml/min Est GFR ( Amer) ml/min Est GFR (Non-Af Amer) ml/min BUN/Creatinine Ratio (10-20) Glucose (70-99(Fasting)) mg/dl Lactate 2.2 H* (0.4-2.0) mmol/L Calcium (8.6-10.3) mg/dl Total Bilirubin (0.2-1.0) mg/dl AST (13-39) U/L ALT (7-52) U/L Alkaline Phosphatase (34-104) U/L Total Protein (6.0-8.3) gm/dl Albumin (3.4-5.0) gm/dl Globulin (2.5-4.0) gm/dl Albumin/Globulin Ratio (0.9-2) Fluid Neutrophils % 8 % Fluid Lymphocytes % 9 % Fluid Meso/Macro/Lincoln % 83 % Fluid Comment Peritoneal Color Yellow Peritoneal Appearance Hazy Peritoneal WBC (Auto) 160 (0-300) /ul Peritoneal RBC (Auto) < 2000 /uL Peritoneal Tot Protein < 3.0 gm/dl Peritoneal Albumin < 1.5 gm/dl Lyme Disease IgG Ab (Negative) Lyme Disease IgM Ab (Negative) 12/23/22 Range/Units 00:50 WBC (4.8-10.8) K/ul RBC (4.70-6.10) M/uL Hgb (14.0-18.0) g/dl Hct (42.0-52.0) % MCV (80.0-100.0) fL MCH (25.0-34.0) pg MCHC (32.0-36.0) g/dL RDW Std Deviation (36.4-46.3) fL RDW Coeff of Randall (11.5-14.5) % Plt Count (130-400) K/uL MPV (9.4-12.4) fL Immature Gran % (Auto) % Neut % (Auto) % Lymph % (Auto) % Lincoln % (Auto) % Eos % (Auto) % Baso % (Auto) % Neut # (Auto) (1.40-6.50) K/uL Lymph # (Auto) (1.2-3.4) K/uL Lincoln # (Auto) (0.11-0.59) K/uL Eos # (Auto) (0-0.50) K/uL Baso # (Auto) (0-0.2) K/uL Immature Gran # (Auto) (0.01-0.20) K/uL Sodium (136-145) mmol/L Potassium (3.5-5.1) mmol/L Chloride (98-107) mmol/L Carbon Dioxide (21-32) mmol/L Anion Gap (3-11) BUN (6-23) mg/dl Creatinine (0.6-1.4) mg/dl Est Cr Clr Drug Dosing ml/min Est GFR ( Amer) ml/min Est GFR (Non-Af Amer) ml/min BUN/Creatinine Ratio (10-20) Glucose (70-99(Fasting)) mg/dl Lactate (0.4-2.0) mmol/L Calcium (8.6-10.3) mg/dl Total Bilirubin (0.2-1.0) mg/dl AST (13-39) U/L ALT (7-52) U/L Alkaline Phosphatase (34-104) U/L Total Protein (6.0-8.3) gm/dl Albumin (3.4-5.0) gm/dl Globulin (2.5-4.0) gm/dl Albumin/Globulin Ratio (0.9-2) Fluid Neutrophils % % Fluid Lymphocytes % % Fluid Meso/Macro/Lincoln % % Fluid Comment Peritoneal Color Peritoneal Appearance Peritoneal WBC (Auto) (0-300) /ul Peritoneal RBC (Auto) /uL Peritoneal Tot Protein gm/dl Peritoneal Albumin gm/dl Lyme Disease IgG Ab Negative (Negative) Lyme Disease IgM Ab Negative (Negative) Medications Administered Current Inpatient Medications Acetaminophen (Acetaminophen 500 Mg Tab) 500 mg PO Q6H PRN PRN Reason: Pain/Fever Stop: 01/22/23 03:35 Last Admin: 12/23/22 09:32 Dose: 500 mg Albuterol (Albut/Ipratrop 3mg/0.5mg Neb 3 Ml Vial) 3 ml NEB QIDR PRN; Protocol PRN Reason: Wheezing Stop: 01/23/23 06:59 Last Admin: 12/23/22 19:58 Dose: 3 ml Benzonatate (Benzonatate 100 Mg Capsule) 100 mg PO TID PRN PRN Reason: Cough Stop: 01/22/23 19:49 Folic Acid (Folic Acid 1 Mg Tab) 1 mg PO QAM MEMO Stop: 01/23/23 08:59 Gabapentin (Gabapentin 600 Mg Tab) 600 mg PO Q24H MEMO Stop: 12/26/22 22:01 Gabapentin (Gabapentin 600 Mg Tab) 600 mg PO Q12H MEMO Stop: 12/25/22 22:01 Gabapentin (Gabapentin 600 Mg Tab) 600 mg PO Q8H MEMO Stop: 12/24/22 22:01 Last Admin: 12/24/22 05:01 Dose: 600 mg Promethazine HCl 6.25 mg/ (Sodium Chloride) 50.25 mls @ 201 mls/hr IV Q6H PRN PRN Reason: Nausea And Vomiting Stop: 01/22/23 03:35 Ceftriaxone Sodium 2,000 mg/ (Dextrose) 70 mls @ 100 mls/hr IV Q24H MEMO; Protocol Stop: 01/03/23 03:59 Last Infusion: 12/24/22 04:14 Dose: Infused Albumin Human (Albumin 25%) 25 gm in 100 mls @ 50 mls/hr IV Q8H MEMO Stop: 12/26/22 08:59 Last Infusion: 12/24/22 03:54 Dose: Infused Lorazepam (Lorazepam 2 Mg/1 Ml Vial) 2 mg IV UD PRN; Protocol PRN Reason: EtOH Withdrawal AWSS Score 8,9 Stop: 01/22/23 06:12 Lorazepam (Lorazepam 2 Mg/1 Ml Vial) 3 mg IV ONCE PRN; Protocol PRN Reason: EtOH Withdrawal AWSS Score 10+ Lorazepam (Lorazepam 2 Mg/1 Ml Vial) 1 mg IV UD PRN; Protocol PRN Reason: EtOH Withdrawal AWSS Score 6,7 Stop: 01/22/23 06:12 Magnesium Oxide (Magnesium [facility]ide 400 Mg Tab) [facility] [place] Stop: 01/22/23 10:44 Last Admin: 12/23/22 11:07 Dose: 400 mg Miscellaneous (Remove Nicoderm Patch) 1 each N/A DAILY@858 [facility] Stop: 01/22/23 08:58 Last Admin: 12/23/22 09:38 Dose: Not Given Multivitamins (Multivitamin Tab) 1 [facility] [place] Stop: 01/23/23 08:59 Nicotine (Nicotine 14 Mg/24 Hr Patch) [address] [facility] Stop: 01/22/23 08:59 Last Admin: 12/23/22 09:33 Dose: 14 mg Nicotine Polacrilex (Nicotine Polacrilex 2 Mg Gum) 1 piece MT Q2H PRN PRN Reason: nicotine addiction Stop: 01/22/23 16:36 Last Admin: 12/23/22 21:53 Dose: 1 piece Oxycodone HCl (Oxycodone Hcl Ir 5 Mg Tab (Immediate Release)) 5 mg PO Q4H PRN PRN Reason: Pain Stop: 01/06/23 03:35 Last Admin: 12/23/22 19:31 Dose: 5 mg Thiamine HCl (Thiamine Hcl 100 Mg Tab) [facility] [place] Stop: 01/23/23 08:59
[2022-12-24] MEDS ORDERED: FOLIC ACID 1 MG TAB PO SCH (09:00)
[2022-12-24] MEDS ORDERED: POTASSIUM CHLORIDE CRTAB 20 MEQ TABCR PO SCH (09:00)
[2022-12-24] MEDS ORDERED: MULTIVITAMIN TAB PO SCH (09:00)
[2022-12-24] MEDS ORDERED: THIAMINE HCL 100 MG TAB PO SCH (09:00)
[2022-12-24] MEDS ORDERED: TORSEMIDE 10 MG TAB PO SCH (10:00)
[2022-12-24] MEDS ORDERED: SPIRONOLACTONE 25 MG TAB PO SCH (10:00)
--- NOTE | 2022-12-24 10:48 | Nephrology Progress Note ---
Date of Service December 24, 2022 Assessment & Plan (1) Hyponatremia: Plan: stable/acceptable sodium in setting of hypervolemic hyponatremia from alcoholic liver disease -when taking regular diet needs FR -Restart on torsemide 40 with spironolactone 25 daily/8 - sodium has normalized -maintain eukalemia (2) Decompensation of cirrhosis of liver: Plan: per GI and hospitalist; had paracentesis; pt actively using EtOH and not interested in liver transplant Admission and Anticipated Discharge Date Admission Date: December 23, 2022 Subjective Comfortable, looks withdrawn Does not want to engage. Review of Systems Review of Systems: All systems reviewed & are unremarkable except as noted in HPI & below Physical Exam Physical Exam: Constitutional: Alert, but withdrawn and does not want to engage he is resting i n bed. HEENT: Unremarkable Neck: No jugular venous distention, carotid pulses are normal and equal b ilaterally without bruits. Pulmonary: Clear to auscultation bilaterally. Cardiac: Regular rhythm with no murmur, gallop or rub. Abdomen: Distended, soft, diffuse tenderness Results & Data Vital Signs (Past 12 Hours) Vital Signs Temp Pulse Pulse Resp BP BP Pulse Ox 12/24/22 07:46 37.2 C 104 H 18 111/74 91 12/24/22 04:10 36.7 C 111 H 20 121/76 92 12/24/22 02:52 108 H 12/23/22 23:23 37.0 C 111 H 20 124/77 96 O2 Del Method 12/24/22 07:46 Room Air 12/24/22 04:10 Room Air 12/24/22 02:52 12/23/22 23:23 Room Air Laboratory Results 12/24/22 06:52 12/24/22 06:52
[2022-12-24] MEDS: MAGNESIUM OXIDE 400 MG TAB PO SCH (10:49)
[2022-12-24] MEDS: NICOTINE 14 MG/24 HR PATCH TD SCH (10:49)
[2022-12-24] MEDS: ACETAMINOPHEN 500 MG TAB PO PRN (10:54)
--- NOTE | 2022-12-24 11:27 | Discharge Summary ---
Date of Service December 24, 2022 Admission HPI Per Admitting Provider Medical history significant for alcoholic cirrhosis, history alcohol withdrawal seizures, SAH, intracranial aneurysm, chronic hyponatremia, emphysema as per records, ongoing alcohol/ tobacco abuse, chronic anemia (baseline hemoglobin 11) Last confinement December 05 to 2022 for hyponatremia and decompensated alcoholic cirrhosis. Patient discharged on diuretic Rx and 1.5 L fluid restriction. Increasing abdominal distention noted a few days after discharge. 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 Claims he was drinking as much as 4 L of water every day. Patient went back to drinking alcohol 2 weeks following discharge. Patient also taking OTC NSAIDs for chronic back pain. [place] [facility] [place] on follow-up visit 4 days ago. Torsemide dose increased and Aldactone added to regimen. Worsening abdominal distention with pain, with chills. No unusual cough symptoms. Hard to breathe with abdominal distention as per patient. Usual back pain with radiation to left lower extremity. Patient consulted ER for worsening symptoms. 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 Admission Exam Per Admitting Provider GENERAL: Slightly uncomfortable, no respiratory distress SKIN: Pallor, warm HEENT: Pale palpebral conjunctivae, no ptosis, dry buccal mucosa NECK : Supple, no tenderness CHEST : Decreased breath sounds, scattered expiratory wheezes, no tenderness HEART : RRR, no obvious murmurs ABDOMEN: Marked distention, epigastric tenderness EXTREMITIES : Minimal LE swelling, no LE tenderness, no other conspicuous deformities noted NEUROLOGIC : coherent, no facial asymmetry, no other gross focality Principal Diagnosis Abdominal ascites, decompensated liver cirrhosis Discharge Exam GENERAL: slim young M in NAD HEENT: NC/ AT. Pale palpebral conjunctivae, no ptosis NECK : Supple, no tenderness CHEST : Decreased breath sounds, mild expiratory wheezes, no tenderness HEART : RRR, no obvious murmurs ABDOMEN: soft, + minimal distention (much improved now - s/p paracentesis), nontender NEUROLOGIC : alert oriented, answers appropriately, no facial asymmetry,moves extremities EXTREMITIES : Minimal LE swelling, no LE tenderness, moves extremities SKIN: Pallor, warm, small excoriation w/ small erythema on abdomen - (per pt from tick bite previously) Discharge Data Allergies Allergy/AdvReac Type Severity Reaction Status Date / Time No Known Allergies Allergy Verified 12/04/22 22:16 Consultations 12/23/22 02:17 ED Decision to Admit Stat 12/23/22 06:30 Consult Gastroenterology Routine 12/23/22 10:37 Consult Nephrology Routine Ordered Studies 12/23/22 01:41 CT abd pelvis IV con only Stat FINDINGS: There are mild subpleural groundglass opacities within the lower lungs. No pneumatosis, free air or portal venous gas is present. Large volume abdominal and pelvic ascites is present. There is hepatic steatosis. There is subtle nodularity of the liver surface. This favors cirrhosis. Recanalized periumbilical vein is noted. There are small esophageal varices. The main, left and right portal veins are patent. No hepatic lesions are identified on venous phase exam. Spleen, adrenal glands, kidneys and pancreas are unremarkable. There is no hydronephrosis. There is no evidence for a bowel obstruction. The appendix is normal. No fluid collection is present. There is no abdominal or pelvic lymphadenopathy. No acute fractures are identified. Size of the spleen is normal. IMPRESSION: 1. Hepatic steatosis and suspected cirrhosis. Large volume ascites. Small varices. 2. Mild groundglass opacities within the lower lungs. These could reflect a mild infectious process or atelectasis. 3. No bowel obstruction. Normal appendix. 12/23/22 08:00 IR paracentesis abd w/img US Routine IMPRESSION: Ultrasound-guided diagnostic and therapeutic paracentesis with aspiration of 3.2 liters of ascites. 1 L was sent to the laboratory at the request of the referring physician. Hospital Course (1) Decompensation of cirrhosis of liver: Ascites Hx alcoholic cirrhosis possible Spontaneous Bacterial Peritonitis (sbp)- given abdominal pain complaints, no overt sepsis on admission Medical noncompliance history alcohol withdrawal seizures Alcoholic hepatitis, good prognosis with computed Maddrey's DF score of 6 S/p paracentesis - fluid analysis not c/w sbp Ceftriaxone, albumin for possible SBP started on admission - will stop now GI consult Re: Decompensated alcoholic cirrhosis pt should follow up w/ hepatology and abstain from EtOH DT precautions, KENNY S - no signs of withdrawal at this time Chronic hyponatremia secondary to alcoholic liver disease - nephrology consulted - discussed w/ nephrology - restart diuretics - torsemide 40 mg daily and spironolactone 25 mg daily. Celluitis small excoriation w/ small erythema on abd. skin - per pt from previous tick bite discharge on keflex, pt received ceftriaxone while inpt for poss. sbp emphysema as per records, baseline wheezing on exam SAH, intracranial aneurysm chronic anemia, hemoglobin at baseline Hypokalemia secondary to diuretic Rx- replete potassium ongoing alcohol/ tobacco abuse - counselling provided, Nicotine patch provided Total Time Total Time Spent Total Time Spent (In Minutes): 40 Discharge Plan Discharge Items Patient Disposition: Home - Self-Care Reason For Visit: DECOMPENSATED CIRRHOSIS Discharge Diagnosis: Abdominal ascites, decompensated liver cirrhosis Activity: Per Instructions section Non-emergency contact: Primary Care Provider, Horologist and Seafood Team Member Call non-emergency contact if: you have any medication questions and your symptoms worsen Follow-up/Referrals: Hannah Albrecht DO [Primary Care Provider] - (Date & Time 01/02/2023 11:20 AM Provider Hannah Albrecht DO Department [facility] ) Diet: Regular Fluids: 1800ml (7 cups) Addtl Attending Provider Instructions: Follow-up with your primary care provider, the appointment was scheduled for you for January 02. You will also need to establish care with a specialist, water treatment plant engineer (liver doctor). It is crucial that you abstain from drinking alcohol. Continue taking diuretics, torsemide 40 mg daily, and spironolactone 25 mg daily. Follow-up with nephrology for further diuretic management. Continue taking folic acid and thiamine. Finish antibiotic treatment for cellulitis. Pending Studies at Discharge: Yes Studies:: Peritoneal fluid culture Stand-Alone Forms: [facility], Smoking Cessation Medications and DC Order Prescriptions: New spironolactone 25 mg Tablet 25 mg PO DAILY Qty: 14 0RF cephalexin 500 mg tablet 500 mg PO QID 4 Days Qty: 16 0RF Continued multivitamin Tablet 1 tab PO DAILY thiamine HCl (vitamin B1) 100 mg Tablet 100 mg PO QAM 30 Days Qty: 30 0RF potassium chloride 20 mEq Tablet,Er Particles/Crystals 20 meq PO BID 30 Days Qty: 60 0RF folic acid 1 mg Tablet 1 mg PO QAM 30 Days Qty: 30 0RF magnesium oxide 400 mg PO DAILY torsemide 10 mg tablet 40 mg PO DAILY Discontinued spironolactone 50 mg tablet 50 mg PO DAILY Discharge Orders: Discharge Order (Routine); Ordered 12/24/22 Ordered By: Clement Shelby Admission Data Admit Date/Time: 12/23/22 03:34 Attending Provider: Clement Shelby Admit Provider: Shun Mckeon Primary Care Provider: Hannah Albrecht Other Providers: Shun Mckeon ; Veronica Bustillos ; Quentin Guido ; Lucila Alfred ; Brittany De Jesus ; Aileen Yang ; Tressa Charles ; Flex Gray ; Blaine Collier ; Eric Garcia ; Kal Pathak ; Wicho Dumont ; Sahra Mukherjee ; Winnie Cooney ; Kayla Guallpa ; Ronel Lugo ; Cara Rapp ; Radames Barnes ; Damian Pal ; Angela Kuhn ; Kaity Dwyer Jr ; Bhavana Gustafson
--- NOTE | 2022-12-24 12:47 | XRay Report ---
XR chest 1V portable HISTORY: 37 years-old Male follow up acute shortness of breath COMPARISON: 12/23/2022 TECHNIQUE: AP view the chest FINDINGS: Cardiomediastinal and hilar silhouettes are within normal limits. Mild patchy bilateral airspace opac ities are similar to prior. No pneumothorax, pleural effusion or overt pulmonary edema. The bones kvng ear normal. IMPRESSION: Unchanged appearance of the mild patchy bilateral airspace opacities suggestive of multif ocal pneumonia. ACT 112: Negative or not required by law. The above report was generated using voice recognition software. It may contain grammatical, syntax o r spelling errors. Electronically signed by: Esa Cruz M.D. 12/24/2022 12:46 PM
[2022-12-25] MEDS ORDERED: GABAPENTIN 600 MG TAB PO SCH (10:00)
[2022-12-26] MEDS ORDERED: GABAPENTIN 600 MG TAB PO SCH (22:00)
== END 2022-12-24 14:33 | disposition home or self-care (01) | DRG 432 ==
LOC: ED 23:40 → 2W 12-23 03:34

== ENCOUNTER 2023-07-28 17:30 | Inpatient (IN) ==
--- NOTE | 2023-07-28 17:41 | ED Triage Note ---
Date of Service July 28, 2023 Provider in Triage Author: Soham Crespo. History of Present Illness This patient was briefly evaluated while in triage. An abbreviated physical exam was performed. This patient is a 38-year-old Male who presents to the ED for evaluation of abdominal bloating and discomfort. He thinks he needs to have his belly drained. History of alcoholic cirrhosis requiring paracentesis in the past. No vomiting or diarrhea. Ran out of 2 medications recently. Drinking 1-2 drinks per day right now. Physical Exam CONSTITUTIONAL: in no acute pain or distress, resting comfortably SKIN: jaundice ABDOMEN: distended with fluid through umbilicus. diffusely tender Initial orders for labs and / or imaging were placed and patient was placed into a room. Please see further documentation for the full ED course.
--- NOTE | 2023-07-28 18:28 | Emergency Department Note ---
Impression & Plan Abdominal pain, Hypomagnesemia, Acute hyponatremia, Dizziness, Acute hypokalemia ED Provider Note HISTORY OF PRESENT ILLNESS: Patient is a 38-year-old male presenting with abdominal distention and dizziness. Patient reports that he has history of liver failure and has had a paracentesis 3 times. He reports that in the last 14 days his abdomen has become significantly distended. He denies any fevers. Reports feeling "just not right." He reports he drinks two 16 ounce twisted teas a day. His last drink was yesterday. He denies any nausea or vomiting. Denies any chest pain or shortness of breath. However, he states that he feels lightheaded and dizzy like he is going to pass out every time he stands up in the last few days. He reports his last paracentesis was a year ago. He has not followed with copy and print associate or his primary doctor "in a while." ROS: as above PHYSICAL EXAM: Constitutional: Patient appears in no acute distress. HENT: Head: Normocephalic and atraumatic. Eyes: EOMI, PERRL Mouth/Throat: Mucous membranes moist. Neck: Trachea midline. Neck supple. Cardiovascular: RRR, No murmurs, rubs or gallops. Intact distal pulses. Pulmonary/Chest: No respiratory distress. Breath sounds clear and equal bilaterally. No wheezes or rales. Abdominal: Abdomen soft, no tenderness, rebound or guarding. Abdomen is distended with obvious ascites Musculoskeletal: No edema, tenderness or deformity noted. Skin: Warm and dry. No rash, erythema, pallor or cyanosis Psychiatric: Appropriate mood and affect for situation. Neurological: Alert and keenly responsive. CN II-XII grossly intact, moving all extremities equally and fully. MDM: - Vitals signs showed tachycardia. - History obtained via patient. Patient presents with abdominal distention and dizziness. Patient reports that his abdomen has become progressively more distended in the last 14 days. Here he denies any fevers. He reports feeling generally unwell. Reports drinking alcohol daily and his last drink was yesterday. Denies any nausea or vomiting. Denies any chest pain or shortness of breath. He reports that for the last few days every time he stands up he feels dizzy like he is going to pass out. - Chronic conditions affecting care: chronic hyponatremia; cirrhosis; alcohol use - Differential diagnoses include, but are not limited to: peritonitis; small bowel obstruction; ACS; electrolyte abnormality; viral syndrome; UTI - Order placed for continuous cardiac monitoring. At this time, monitor showed rate of 90 bpm with normal sinus rhythm, per my interpretation. - External medical records reviewed. - EKG interpreted by myself showed normal sinus rhythm. Rate 82 bpm. QT 506. No acute ischemic changes. - Laboratory workup interpreted by myself showed normal WBC; hyponatremia (Na 109 - baseline around 133); hypokalemia (K 2.2); elevated anion gap (12); hypocalcemia (Ca 7.2); hypomagnesemia (Mg 1.3); elevated AST (143 - consistent with alcoholism); elevated ammonia (81); low albumin (2.8); normal lipase; normal TSH; elevated alcohol (16.1) - CT abdomen/pelvis with IV contrast showed cirrhosis with evidence of portal hypertension and esophageal varices and moderate ascites. - Given 1L NS for soft blood pressures. Given 50 mg IV albumin. - Given patient's sodium of 109, further laboratory workup and urine workup (including urine electrolytes) ordered. Given his severe hyponatremia and his complaint of dizziness, hypertonic saline indicated. Given 50 cc hypertonic saline. - Ordered three runs of 10 mEq IV potassium. Ordered 1g IV magnesium for further electrolyte replacement. - CXR negative for pneumonia, per my interpretation - Discussion was had with personal care aide about patient's case and need for admission - Hospitalist consulted for admission - Discussed case with ANA Aiken in ICU for ICU bed. - Patient admitted to [facility] service for further evaluation and management. I have personally spent 68 minutes of critical care time in the direct management of this patient. This includes bedside care, interpretation of diagnostic studies, and testing, discussion with consultants, patient, and family members, and other required patient management activities. This 68 minutes is in excess of all separately billable procedures. 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 [facility] (closed head injury) Chronic hyponatremia Hepatitis Hyponatremia Chronic Seizure EtOH withdrawal Thrombocytopenia Tobacco use Surgical History No pertinent past surgical history Family History Other Multiple myeloma Social History Smoking Status: Never smoker Tobacco Type: Pipe Cigarettes Per Day: pack a day; Second Hand Exposure: Yes; Do You Dip or Chew Tobacco: No; Hx Alcohol Use: Yes Alcohol type: beer Hx Substance Use: No Preferred Language: Tajik Communication Ability: Effective Hearing Ability: Normal 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 Beliefs That Will Affect Care: None marital status: Single Current Living Situation: Alone current occupational status: employed Feels Safe at Home: Yes Assistive Devices: None Allergies Allergies Allergy/AdvReac Type Severity Reaction Status Date / Time No Known Allergies Allergy Verified 07/28/23 20:17 Home Meds Home Medications Medication Instructions Recorded Confirmed multivitamin 1 tab PO DAILY 12/04/22 07/28/23 acetaminophen 500 mg tablet 500 mg PO Q6H PRN PAIN/FEVER 07/28/23 07/28/23 torsemide 20 mg tablet 40 mg PO QAM 07/28/23 07/28/23 Results & Data (ED) Vital Signs Vital Signs - 24 hr 07/28/23 17:39 07/28/23 17:59 Temperature 36 C L Temperature Source Temporal Artery Scan Pulse Rate 93 H 91 H Respiratory Rate 18 Respiratory Effort / Characteristics Non-Labored Respiratory Depth Normal Blood Pressure 106/71 Blood Pressure Mean 82 Pulse Oximetry 99 Oxygen Delivery Method Room Air Sepsis Recent Fever Within 48 Hours No Sepsis New/Unexplained Change in Mental Status No Sepsis Action Taken by Nursing No Action Required Laboratory Data 07/28/23 20:32 07/28/23 18:05 Lab Results 07/28/23 07/28/23 07/28/23 Range/Units 18:05 18:22 20:05 WBC Cancelled RBC Cancelled Hgb Cancelled Hct Cancelled MCV Cancelled MCH Cancelled MCHC Cancelled RDW Std Deviation Cancelled RDW Coeff of Randall Cancelled Plt Count Cancelled MPV Cancelled Immature Gran % (Auto) Cancelled Neut % (Auto) Cancelled Lymph % (Auto) Cancelled [place] % (Auto) Cancelled Eos % (Auto) Cancelled Baso % (Auto) Cancelled Neut # (Auto) Cancelled Lymph # (Auto) Cancelled [place] # (Auto) Cancelled Eos # (Auto) Cancelled Baso # (Auto) Cancelled Immature Gran # (Auto) Cancelled Absolute Nucleated RBC Cancelled Nucleated RBC % (auto) Cancelled Neutrophils % (Manual) Cancelled Band Neutrophils % Cancelled Lymphocytes % (Manual) Cancelled Prolymphocyte % Cancelled Reactive Lymphs % (Man) Cancelled Monocytes % (Manual) Cancelled Eosinophils % (Manual) Cancelled Basophils % (Manual) Cancelled Metamyelocytes % (Man) Cancelled Myelocytes % (Man) Cancelled Promyelocytes % (Man) Cancelled Blast Cells % (Manual) Cancelled Plasma Cell % (Manual) Cancelled Other Cells % Cancelled Nucleated RBC % Cancelled Neutrophils # (Manual) Cancelled Band Neutrophils # Cancelled Total Absolute Neuts Cancelled Lymphocytes # (Manual) Cancelled Prolymphocyte # Cancelled Reactive Lymphs # Cancelled Total Abs Lymphocytes Cancelled Monocytes # (Manual) Cancelled Eosinophils # (Manual) Cancelled Basophils # (Manual) Cancelled Metamyelocytes # (Man) Cancelled Myelocytes # (Manual) Cancelled Promyelocytes # (Man) Cancelled Blast Cells # (Man) Cancelled Plasma Cell # (Manual) Cancelled Other Cells # Cancelled Nucleated RBCs # (Man) Cancelled Hypersegmented Neuts Cancelled Hyposegmented Neuts Cancelled Hypogranular Neuts Cancelled Large Granular Lymphs Cancelled # Lrg Granular Lymphs Cancelled Hairy Cells Cancelled Smudge Cells Cancelled Toxic Granulation Cancelled Toxic Vacuolation Cancelled Dohle Bodies Cancelled Michaela Rods Cancelled Platelet Estimate Cancelled Hypogranular Platelets Cancelled Giant Platelets Cancelled Platelet Satelliting Cancelled RBC Morphology Cancelled Polychromasia Cancelled Hypochromasia Cancelled Poikilocytosis Cancelled Basophilic Stippling Cancelled Anisocytosis Cancelled Microcytosis Cancelled Macrocytosis Cancelled Spherocytes Cancelled Pappenheimer Bodies Cancelled Sickle Cells Cancelled Target Cells Cancelled Tear Drop Cells Cancelled Ovalocytes Cancelled Stomatocytes Cancelled Pereyra-Thaxton Bodies Cancelled Echinocytes Cancelled Acanthocytes (Spur) Cancelled Rouleaux Cancelled RBC Agglutinates Cancelled Schistocytes Cancelled Sezary Cell Cancelled PT 17.7 H (9.0-12.0) Seconds INR 1.7 H (0.9-1.1) Sodium 109 L* (136-145) mmol/L Potassium 2.2 L* (3.5-5.1) mmol/L Chloride 63 L (98-107) mmol/L Carbon Dioxide 34 H (21-32) mmol/L Anion Gap 12 H (3-11) BUN 2 L (6-23) mg/dl Creatinine 0.62 (0.6-1.4) mg/dl Est Cr Clr Drug Dosing 148.1 ml/min Est GFR ( Amer) 143.8 ml/min Est GFR (Non-Af Amer) 124.1 ml/min BUN/Creatinine Ratio 3.2 L (10-20) Glucose 160 H (70-99(Fasting)) mg/dl Osmolality 224 L* (280-300) mOsm/kg Uric Acid 4.1 (2.6-7.2) mg/dl Calcium 7.2 L (8.6-10.3) mg/dl Phosphorus 2.9 (2.5-4.9) mg/dl Magnesium 1.3 L (1.7-2.4) mg/dl Total Bilirubin 5.3 H (0.2-1.0) mg/dl AST 143 H (13-39) U/L ALT 51 (7-52) U/L Alkaline Phosphatase 532 H (34-104) U/L Ammonia 81.0 H (18-72) umol/L Troponin I High Sens 21.7 H (0-20) pg/ml Total Protein 6.0 (6.0-8.3) gm/dl Albumin 2.8 L (3.4-5.0) gm/dl Globulin 3.2 (2.5-4.0) gm/dl Albumin/Globulin Ratio 0.9 (0.9-2) Lipase 21 (11-82) U/L TSH 0.361 (0.300-4.500) uIu/ml Random Cortisol 23.91 mcg/dl Urine Osmolality 82 L (500-800) mOsm/kg Ur Random Creatinine 12.9 mg/dl Ur Random Sodium 20 mmol/L Ethyl Alcohol mg/dL 16.1 H (<10.0) mg/dl Blood Parasites ID Cancelled 07/28/23 Range/Units 20:32 WBC 6.45 RBC 2.60 L Hgb 9.5 L Hct 25.5 L MCV 98.1 MCH 36.5 H MCHC 37.3 H RDW Std Deviation 53.3 H RDW Coeff of Randall 15.1 H Plt Count 125 L MPV 10.5 Immature Gran % (Auto) 0.8 Neut % (Auto) 80.6 Lymph % (Auto) 12.4 [place] % (Auto) 6.2 Eos % (Auto) 0.0 Baso % (Auto) 0.0 Neut # (Auto) 5.20 Lymph # (Auto) 0.80 L [place] # (Auto) 0.40 Eos # (Auto) 0.00 Baso # (Auto) 0.00 Immature Gran # (Auto) 0.05 Absolute Nucleated RBC Nucleated RBC % (auto) Neutrophils % (Manual) Band Neutrophils % Lymphocytes % (Manual) Prolymphocyte % Reactive Lymphs % (Man) Monocytes % (Manual) Eosinophils % (Manual) Basophils % (Manual) Metamyelocytes % (Man) Myelocytes % (Man) Promyelocytes % (Man) Blast Cells % (Manual) Plasma Cell % (Manual) Other Cells % Nucleated RBC % Neutrophils # (Manual) Band Neutrophils # Total Absolute Neuts Lymphocytes # (Manual) Prolymphocyte # Reactive Lymphs # Total Abs Lymphocytes Monocytes # (Manual) Eosinophils # (Manual) Basophils # (Manual) Metamyelocytes # (Man) Myelocytes # (Manual) Promyelocytes # (Man) Blast Cells # (Man) Plasma Cell # (Manual) Other Cells # Nucleated RBCs # (Man) Hypersegmented Neuts Hyposegmented Neuts Hypogranular Neuts Large Granular Lymphs # Lrg Granular Lymphs Hairy Cells Smudge Cells Toxic Granulation Toxic Vacuolation Dohle Bodies Michaela Rods Platelet Estimate Hypogranular Platelets Giant Platelets Platelet Satelliting RBC Morphology Polychromasia Hypochromasia Poikilocytosis Basophilic Stippling Anisocytosis Microcytosis Macrocytosis Spherocytes Pappenheimer Bodies Sickle Cells Target Cells Tear Drop Cells Ovalocytes Stomatocytes Pereyra-Thaxton Bodies Echinocytes Acanthocytes (Spur) Rouleaux RBC Agglutinates Schistocytes Sezary Cell PT (9.0-12.0) Seconds INR (0.9-1.1) Sodium (136-145) mmol/L Potassium (3.5-5.1) mmol/L Chloride (98-107) mmol/L Carbon Dioxide (21-32) mmol/L Anion Gap (3-11) BUN (6-23) mg/dl Creatinine (0.6-1.4) mg/dl Est Cr Clr Drug Dosing ml/min Est GFR ( Amer) ml/min Est GFR (Non-Af Amer) ml/min BUN/Creatinine Ratio (10-20) Glucose (70-99(Fasting)) mg/dl Osmolality (280-300) mOsm/kg Uric Acid (2.6-7.2) mg/dl Calcium (8.6-10.3) mg/dl Phosphorus (2.5-4.9) mg/dl Magnesium (1.7-2.4) mg/dl Total Bilirubin (0.2-1.0) mg/dl AST (13-39) U/L ALT (7-52) U/L Alkaline Phosphatase (34-104) U/L Ammonia (18-72) umol/L Troponin I High Sens (0-20) pg/ml Total Protein (6.0-8.3) gm/dl Albumin (3.4-5.0) gm/dl Globulin (2.5-4.0) gm/dl Albumin/Globulin Ratio (0.9-2) Lipase (11-82) U/L TSH (0.300-4.500) uIu/ml Random Cortisol mcg/dl Urine Osmolality (500-800) mOsm/kg Ur Random Creatinine mg/dl Ur Random Sodium mmol/L Ethyl Alcohol mg/dL (<10.0) mg/dl Blood Parasites ID Administered Medications Potassium Chloride (K Neville / Wtr) 10 meq in 100 mls @ 100 mls/hr IV Q1H MEMO Stop: 07/28/23 21:59 Last Admin: 07/28/23 21:10 Dose: 100 mls/hr Documented By: Infusion: 07/28/23 21:08 Dose: Infused Documented By: Admin: 07/28/23 20:08 Dose: 100 mls/hr Documented By: MARQUEZ Albumin Human (Albumin 25%) 25 gm in 100 mls @ 50 mls/hr IV ONCE ONE Stop: 07/28/23 22:42 Last Admin: 07/28/23 21:05 Dose: 50 mls/hr Documented By: MARQUEZ Discontinued Medications Sodium Chloride (Nss) 1,000 mls @ 999 mls/hr IV .Q1H1M ONE Stop: 07/28/23 19:50 Last Infusion: 07/28/23 21:16 Dose: Infused Documented By: Admin: 07/28/23 20:09 Dose: 999 mls/hr Documented By: MARQUEZ Magnesium Sulfate/Dextrose (Magnesium Sulfate / D5w) 1 gm in 100 mls @ 100 mls/hr IV NOW STA Stop: 07/28/23 20:30 Last Infusion: 07/28/23 21:10 Dose: Infused Documented By: Admin: 07/28/23 20:08 Dose: 100 mls/hr Documented By: MARQUEZ Ioversol (Optiray 320 500ml) 89 ml IV ONCE ONE Stop: 07/28/23 20:00 Last Admin: 07/28/23 19:59 Dose: 89 ml Documented By: ERI Miscellaneous (Stat Iv/Im) 1 each N/A NOW STA Stop: 07/28/23 20:07 Last Admin: 07/28/23 21:10 Dose: Not Given Documented By: MARQUEZ Imaging Data Radiologist's Impression: Abdomen/Pelvis CT 07/28/23 18:26 Exam(s): CT ABDOMEN + PELVIS With Contrast IV Amt: 89ML OPTIRAY 320 EXAM: CT Abdomen and Pelvis With Intravenous Contrast CLINICAL HISTORY: Reason for exam: generalized abdominal pain and distension. TECHNIQUE: Axial computed tomography images of the abdomen and pelvis with intravenous contrast. CTDI is 18.4 mGy and DLP is 953.35 mGy-cm. Automated exposure control was utilized for the study. A dose lowering technique was utilized adhering to the principles of ALARA. CONTRAST: Patient received 89ML OPTIRAY 320 of IV contrast COMPARISON: CT abdomen and pelvis 12/23/2022. FINDINGS: Lung bases: Unremarkable. No mass. No consolidation. ABDOMEN: Liver: Cirrhotic morphology of the liver with evidence of portal hypertension including esophageal varices. Gallbladder and bile ducts: Wall thickening of the gallbladder is likely reactive. No calcified stones. No ductal dilation. Pancreas: Unremarkable. No mass. No ductal dilation. Spleen: Unremarkable. No splenomegaly. Adrenals: Unremarkable. No mass. Kidneys and ureters: Unremarkable. No solid mass. No hydronephrosis. Stomach and bowel: Wall thickening of the small bowel and colon may be reactive. No obstruction. PELVIS: Appendix: Appendix is not visualized. Bladder: Unremarkable. No mass. Reproductive: Unremarkable as visualized. ABDOMEN and PELVIS: Intraperitoneal space: Mild to moderate ascites. No free air. Bones/joints: Sclerotic calcifications of the abdominal aorta and branches. A generative change in spine. No dislocation. No significant interval change in appearance of superior endplate fractures of T8, T9, and T11 vertebral bodies. Soft tissues: Unremarkable. Vasculature: Esophageal varices. Lymph nodes: Unremarkable. No enlarged lymph nodes. IMPRESSION: 1. Cirrhotic morphology of the liver with evidence of portal hypertension including esophageal varices. 2. Mild to moderate ascites. 3. Wall thickening of the small bowel and colon may be reactive. Enterocolitis cannot be excluded. Clinical correlation is recommended. Electronically signed by: Quentin Yang MD 07/28/23 20:35 PM Chest X-Ray 07/28/23 20:19 SINGLE VIEW CHEST CLINICAL HISTORY: Hyponatremia FINDINGS: An AP, portable, upright chest radiograph is compared to study dated 12/24/2022. The examination is degraded by portable technique and patient rotation. The cardiomediastinal silhouette is unremarkable. There is mild bibasilar scarring/atelectasis. Question mild airspace opacities in the right upper lobe. No large pleural effusion is identified. No pneumothorax is seen. The bony thorax is grossly intact. IMPRESSION: Question mild airspace opacities in the right upper lobe. Correlate clinically for evidence of a mild pneumonitis. Radiographic follow-up to resolution is recommended. ACT 112: Negative or not required by law. Electronically signed by: Will Townsend M.D. 07/28/2023 9:07 PM Discharge Plan Visit Data Chief Complaint: Abdominal Pain Stated Complaint: ABDOMINAL PAIN ED Provider: Amy Mayers Discharge Problem: Abdominal pain, Hypomagnesemia, Acute hyponatremia, Dizziness, Acute hypokalemia Forms Stand Alone Forms: [facility] [employer] Prescriptions Prescriptions: No Action multivitamin Tablet 1 tab PO DAILY torsemide 20 mg tablet 40 mg PO QAM acetaminophen [Tylenol Ex Str Rapid Release] 500 mg Tablet 500 mg PO Q6H PRN (Reason: PAIN/FEVER) Referrals Referrals: Hannah Albrecht DO [Primary Care Provider] -
[2023-07-28 18:50] LABS: Albumin Globulin Ratio 0.9 (0.9-2); Albumin Level 2.8 gm/dl (3.4-5.0); BUN Creatinine Ratio 3.2 (10-20); Bilirubin,Total 5.3 mg/dl (0.2-1.0); Calcium 7.2 mg/dl (8.6-10.3); Creatinine Clr Calc Pharmacy 148.1 ml/min; Est GFR (African American) 143.8 ml/min; Est GFR (Non-African American) 124.1 ml/min; Globulin 3.2 gm/dl (2.5-4.0); Potassium 2.2 mmol/L (3.5-5.1)
[2023-07-28 19:05] LABS: Magnesium 1.3 mg/dl (1.7-2.4)
[2023-07-28 19:10] LABS: INR 1.7 (0.9-1.1); Prothrombin Time 17.7 Seconds (9.0-12.0)
[2023-07-28 19:11] LABS: Phosphorus 2.9 mg/dl (2.5-4.9); Uric Acid 4.1 mg/dl (2.6-7.2)
[2023-07-28 19:25] LABS: Thyroid Stimulating Hormone 0.361 uIu/ml (0.300-4.500)
[2023-07-28] MEDS: OPTIRAY 320 500ml IV ONE (19:59)
[2023-07-28] MEDS: POTASSIUM CHLORIDE / WTR 10 MEQ/100 ML PLCT IV SCH (20:08)
[2023-07-28] MEDS: MAGNESIUM SULFATE / D5W 1 GM/100 ML BAG IV STA (20:08)
[2023-07-28] MEDS: SODIUM CHLORIDE 0.9% 1,000 ML IV ONE (20:09)
--- NOTE | 2023-07-28 20:35 | CT Scan Report ---
Exam(s): CT ABDOMEN + PELVIS With Contrast IV Amt: 89ML OPTIRAY 320 EXAM: CT Abdomen and Pelvis With Intravenous Contrast CLINICAL HISTORY: Reason for exam: generalized abdominal pain and distension. TECHNIQUE: Axial computed tomography images of the abdomen and pelvis with intravenous contrast. CTDI is 18.4 mGy and DLP is 953.35 mGy-cm. Automated exposure control was utilized for the study. A dose lowering technique was utilized adhering to the principles of ALARA. CONTRAST: Patient received 89ML OPTIRAY 320 of IV contrast COMPARISON: CT abdomen and pelvis 12/23/2022. FINDINGS: Lung bases: Unremarkable. No mass. No consolidation. ABDOMEN: Liver: Cirrhotic morphology of the liver with evidence of portal hypertension including esophageal varices. Gallbladder and bile ducts: Wall thickening of the gallbladder is likely reactive. No calcified stones. No ductal dilation. Pancreas: Unremarkable. No mass. No ductal dilation. Spleen: Unremarkable. No splenomegaly. Adrenals: Unremarkable. No mass. Kidneys and ureters: Unremarkable. No solid mass. No hydronephrosis. Stomach and bowel: Wall thickening of the small bowel and colon may be reactive. No obstruction. PELVIS: Appendix: Appendix is not visualized. Bladder: Unremarkable. No mass. Reproductive: Unremarkable as visualized. ABDOMEN and PELVIS: Intraperitoneal space: Mild to moderate ascites. No free air. Bones/joints: Sclerotic calcifications of the abdominal aorta and branches. A generative change in spine. No dislocation. No significant interval change in appearance of superior endplate fractures of T8, T9, and T11 vertebral bodies. Soft tissues: Unremarkable. Vasculature: Esophageal varices. Lymph nodes: Unremarkable. No enlarged lymph nodes. IMPRESSION: 1. Cirrhotic morphology of the liver with evidence of portal hypertension including esophageal varices. 2. Mild to moderate ascites. 3. Wall thickening of the small bowel and colon may be reactive. Enterocolitis cannot be excluded. Clinical correlation is recommended. Electronically signed by: Quentin Yang MD 07/28/23 20:35 PM
--- NOTE | 2023-07-28 20:53 | History & Physical Report ---
Date of Service July 28, 2023 Assessment & Plan (1) Acute hyponatremia: Plan: Acute on chronic multifactorial: Cirrhosis, EtOH abuse recurrent ascites secondary to decompensated cirrhosis, medication noncompliance No unusual abdominal pain, no sepsis for now Alcoholic hepatitis, borderline poor prognosis with computed Maddrey's DF score of 31.5. SAH, intracranial aneurysm emphysema as per records, symptoms at baseline chronic anemia, hemoglobin at baseline Hypokalemia secondary to diuretic Rx, decreased p.o. intake Hyperglycemia rule out DM ongoing alcohol/ tobacco abuse ICU Recheck serum sodium after NSS bolus and hypertonic saline administration at the ER Careful correction of sodium hyponatremia workup GI consult re: recurrent ascites Hold off on antibiotics for now given overt abdominal pain symptoms/lack of sepsis indicators IV vitamin K first coagulopathy in anticipation of paracentesis KENNY S at risk protocol, DT precautions Replace electrolytes Check hemoglobin A1c Nicotine patch as needed DVT prophylaxis. SCDs Re: history SAH Full code Text document was generated using [employer] voice recognition software. It may contain grammatical or spelling errors. Kindly contact undersigned for clarification of any documentation item in question. History of Present Illness Chief Complaint: Worsening abdominal distention Primary Care Provider: Hannah Albrecht DO Medical history significant for alcoholic cirrhosis, history alcohol withdrawal seizures, SAH, intracranial aneurysm, chronic hyponatremia, emphysema as per records, ongoing alcohol/ tobacco abuse, chronic anemia ( baseline hemoglobin 9- 11), medical noncompliance. Last confinement December 2022 for abdominal ascites, decompensated liver cirrhosis, hyponatremia. Ascitic fluid post paracentesis not consistent with SBP. Hypervolemic hyponatremia attributed to cirrhosis as per Nephrology note. Patient discharged on diuretic and 1.8 L daily fluid restriction. No follow-up with PCP and specialists since discharge. Patient not answering phone calls from director of social services. 2 weeks ago, patient noted increasing abdominal distention without unusual abdominal pain. Patient ran out of water pills. No fever, no chills, no chest pain, no unusual SOB. No black/bloody stools. Tolerable headache symptoms without confusion. Serum sodium noted to be 109. NSS and hypertonic saline administered at the ER. 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 Allergies Allergy/AdvReac Type Severity Reaction Status Date / Time No Known Allergies Allergy Verified 07/28/23 20:17 Home Medications Medication Instructions Recorded Confirmed Type multivitamin 1 tab PO DAILY 12/04/22 07/28/23 History acetaminophen 500 mg tablet 500 mg PO Q6H PRN PAIN/FEVER 07/28/23 07/28/23 History torsemide 20 mg tablet 40 mg PO QAM 07/28/23 07/28/23 History Past Med/Surg History Medical History (Updated 07/29/23 @ 09:10 by Bandar Suarez, ) Abdominal ascites Seizure EtOH withdrawal 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 Hyponatremia Chronic Anemia Thrombocytopenia Alcohol withdrawal Hepatitis Tobacco use Chronic hyponatremia Alcohol use CHI (closed head injury) Surgical History No pertinent past surgical history Family History Other Multiple myeloma Social History Smoking Status: Current every day smoker Tobacco Type: Cigarettes Cigarettes Per Day: 20; Second Hand Exposure: Yes; Do You Dip or Chew Tobacco: No; Hx Alcohol Use: Yes Alcohol type: beer Hx Substance Use: No Preferred Language: Zambian Communication Ability: Effective Hearing Ability: Normal Account Resolution Expert Required: No Beliefs That Will Affect Care: None marital status: Single Current Living Situation: Alone current occupational status: employed Other Information That Helps Us Care for You: No Feels Safe at Home: Yes Safety Concerns: Feels Safe At This Time Assistive Devices: None Review of Systems Review of Systems: As per HPI, all other systems reviewed and negative Physical Exam Physical Exam: GENERAL: chronically ill, looks older than stated age, flat affect, no respiratory distress SKIN: jaundiced, warm HEENT: Pale palpebral conjunctivae, no ptosis, dry buccal mucosa NECK : Supple, no tenderness CHEST : Decreased breath sounds, no tenderness HEART : Tachycardic, no obvious murmurs ABDOMEN: Marked distention, nontender EXTREMITIES : Minimal LE swelling/tenderness, no other conspicuous deformities noted NEUROLOGIC : coherent, no facial asymmetry, no other gross focality Results & Data Results & Data Vital Signs (Past 12 Hours) Vital Signs Temp Pulse Resp BP Pulse Ox O2 Del Method 07/28/23 17:59 91 H 07/28/23 17:39 36 C L 93 H 18 106/71 99 Room Air Laboratory Results Laboratory Results WBC Cancelled 07/28/23 18:05 RBC Cancelled 07/28/23 18:05 Hgb Cancelled 07/28/23 18:05 Hct Cancelled 07/28/23 18:05 MCV Cancelled 07/28/23 18:05 MCH Cancelled 07/28/23 18:05 MCHC Cancelled 07/28/23 18:05 RDW Std Deviation Cancelled 07/28/23 18:05 RDW Coeff of Randall Cancelled 07/28/23 18:05 Plt Count Cancelled 07/28/23 18:05 MPV Cancelled 07/28/23 18:05 Immature Gran % (Auto) Cancelled 07/28/23 18:05 Neut % (Auto) Cancelled 07/28/23 18:05 Lymph % (Auto) Cancelled 07/28/23 18:05 [place] % (Auto) Cancelled 07/28/23 18:05 Eos % (Auto) Cancelled 07/28/23 18:05 Baso % (Auto) Cancelled 07/28/23 18:05 Neut # (Auto) Cancelled 07/28/23 18:05 Lymph # (Auto) Cancelled 07/28/23 18:05 [place] # (Auto) Cancelled 07/28/23 18:05 Eos # (Auto) Cancelled 07/28/23 18:05 Baso # (Auto) Cancelled 07/28/23 18:05 Immature Gran # (Auto) Cancelled 07/28/23 18:05 Absolute Nucleated RBC Cancelled 07/28/23 18:05 Nucleated RBC % (auto) Cancelled 07/28/23 18:05 Neutrophils % (Manual) Cancelled 07/28/23 18:05 Band Neutrophils % Cancelled 07/28/23 18:05 Lymphocytes % (Manual) Cancelled 07/28/23 18:05 Prolymphocyte % Cancelled 07/28/23 18:05 Reactive Lymphs % (Man) Cancelled 07/28/23 18:05 Monocytes % (Manual) Cancelled 07/28/23 18:05 Eosinophils % (Manual) Cancelled 07/28/23 18:05 Basophils % (Manual) Cancelled 07/28/23 18:05 Metamyelocytes % (Man) Cancelled 07/28/23 18:05 Myelocytes % (Man) Cancelled 07/28/23 18:05 Promyelocytes % (Man) Cancelled 07/28/23 18:05 Blast Cells % (Manual) Cancelled 07/28/23 18:05 Plasma Cell % (Manual) Cancelled 07/28/23 18:05 Other Cells % Cancelled 07/28/23 18:05 Nucleated RBC % Cancelled 07/28/23 18:05 Neutrophils # (Manual) Cancelled 07/28/23 18:05 Band Neutrophils # Cancelled 07/28/23 18:05 Total Absolute Neuts Cancelled 07/28/23 18:05 Lymphocytes # (Manual) Cancelled 07/28/23 18:05 Prolymphocyte # Cancelled 07/28/23 18:05 Reactive Lymphs # Cancelled 07/28/23 18:05 Total Abs Lymphocytes Cancelled 07/28/23 18:05 Monocytes # (Manual) Cancelled 07/28/23 18:05 Eosinophils # (Manual) Cancelled 07/28/23 18:05 Basophils # (Manual) Cancelled 07/28/23 18:05 Metamyelocytes # (Man) Cancelled 07/28/23 18:05 Myelocytes # (Manual) Cancelled 07/28/23 18:05 Promyelocytes # (Man) Cancelled 07/28/23 18:05 Blast Cells # (Man) Cancelled 07/28/23 18:05 Plasma Cell # (Manual) Cancelled 07/28/23 18:05 Other Cells # Cancelled 07/28/23 18:05 Nucleated RBCs # (Man) Cancelled 07/28/23 18:05 Hypersegmented Neuts Cancelled 07/28/23 18:05 Hyposegmented Neuts Cancelled 07/28/23 18:05 Hypogranular Neuts Cancelled 07/28/23 18:05 Large Granular Lymphs Cancelled 07/28/23 18:05 # Lrg Granular Lymphs Cancelled 07/28/23 18:05 Hairy Cells Cancelled 07/28/23 18:05 Smudge Cells Cancelled 07/28/23 18:05 Toxic Granulation Cancelled 07/28/23 18:05 Toxic Vacuolation Cancelled 07/28/23 18:05 Dohle Bodies Cancelled 07/28/23 18:05 Michaela Rods Cancelled 07/28/23 18:05 Platelet Estimate Cancelled 07/28/23 18:05 Hypogranular Platelets Cancelled 07/28/23 18:05 Giant Platelets Cancelled 07/28/23 18:05 Platelet Satelliting Cancelled 07/28/23 18:05 RBC Morphology Cancelled 07/28/23 18:05 Polychromasia Cancelled 07/28/23 18:05 Hypochromasia Cancelled 07/28/23 18:05 Poikilocytosis Cancelled 07/28/23 18:05 Basophilic Stippling Cancelled 07/28/23 18:05 Anisocytosis Cancelled 07/28/23 18:05 Microcytosis Cancelled 07/28/23 18:05 Macrocytosis Cancelled 07/28/23 18:05 Spherocytes Cancelled 07/28/23 18:05 Pappenheimer Bodies Cancelled 07/28/23 18:05 Sickle Cells Cancelled 07/28/23 18:05 Target Cells Cancelled 07/28/23 18:05 Tear Drop Cells Cancelled 07/28/23 18:05 Ovalocytes Cancelled 07/28/23 18:05 Stomatocytes Cancelled 07/28/23 18:05 [place] Bodies Cancelled 07/28/23 18:05 Echinocytes Cancelled 07/28/23 18:05 Acanthocytes (Spur) Cancelled 07/28/23 18:05 Rouleaux Cancelled 07/28/23 18:05 RBC Agglutinates Cancelled 07/28/23 18:05 Schistocytes Cancelled 07/28/23 18:05 Sezary Cell Cancelled 07/28/23 18:05 PT 17.7 Seconds (9.0-12.0) H 07/28/23 18:22 INR 1.7 (0.9-1.1) H 07/28/23 18:22 Sodium 109 mmol/L (136-145) L* 07/28/23 18:05 Potassium 2.2 mmol/L (3.5-5.1) L* 07/28/23 18:05 Chloride 63 mmol/L (98-107) L 07/28/23 18:05 Carbon Dioxide 34 mmol/L (21-32) H 07/28/23 18:05 Anion Gap 12 (3-11) H 07/28/23 18:05 BUN 2 mg/dl (6-23) L 07/28/23 18:05 Creatinine 0.62 mg/dl (0.6-1.4) 07/28/23 18:05 Est Cr Clr Drug Dosing 148.1 ml/min 07/28/23 18:05 Est GFR ( Amer) 143.8 ml/min 07/28/23 18:05 Est GFR (Non-Af Amer) 124.1 ml/min 07/28/23 18:05 BUN/Creatinine Ratio 3.2 (10-20) L 07/28/23 18:05 Glucose 160 mg/dl (70-99(Fasting)) H 07/28/23 18:05 Osmolality 224 mOsm/kg (280-300) L* 07/28/23 18:05 Uric Acid 4.1 mg/dl (2.6-7.2) 07/28/23 18:05 Calcium 7.2 mg/dl (8.6-10.3) L 07/28/23 18:05 Phosphorus 2.9 mg/dl (2.5-4.9) 07/28/23 18:05 Magnesium 1.3 mg/dl (1.7-2.4) L 07/28/23 18:05 Total Bilirubin 5.3 mg/dl (0.2-1.0) H 07/28/23 18:05 AST 143 U/L (13-39) H 07/28/23 18:05 ALT 51 U/L (7-52) 07/28/23 18:05 Alkaline Phosphatase 532 U/L (34-104) H 07/28/23 18:05 Ammonia 81.0 umol/L (18-72) H 07/28/23 18:05 Troponin I High Sens 21.7 pg/ml (0-20) H 07/28/23 18:22 Total Protein 6.0 gm/dl (6.0-8.3) 07/28/23 18:05 Albumin 2.8 gm/dl (3.4-5.0) L 07/28/23 18:05 Globulin 3.2 gm/dl (2.5-4.0) 07/28/23 18:05 Albumin/Globulin Ratio 0.9 (0.9-2) 07/28/23 18:05 Lipase 21 U/L (11-82) 07/28/23 18:05 TSH 0.361 uIu/ml (0.300-4.500) 07/28/23 18:05 Random Cortisol 23.91 mcg/dl 07/28/23 18:05 Ethyl Alcohol mg/dL 16.1 mg/dl (<10.0) H 07/28/23 18:05 Blood Parasites ID Cancelled 07/28/23 18:05 Impressions Abdomen/Pelvis CT 07/28/23 18:26 Exam(s): CT ABDOMEN + PELVIS With Contrast IV Amt: 89ML OPTIRAY 320 EXAM: CT Abdomen and Pelvis With Intravenous Contrast CLINICAL HISTORY: Reason for exam: generalized abdominal pain and distension. TECHNIQUE: Axial computed tomography images of the abdomen and pelvis with intravenous contrast. CTDI is 18.4 mGy and DLP is 953.35 mGy-cm. Automated exposure control was utilized for the study. A dose lowering technique was utilized adhering to the principles of ALARA. CONTRAST: Patient received 89ML OPTIRAY 320 of IV contrast COMPARISON: CT abdomen and pelvis 12/23/2022. FINDINGS: Lung bases: Unremarkable. No mass. No consolidation. ABDOMEN: Liver: Cirrhotic morphology of the liver with evidence of portal hypertension including esophageal varices. Gallbladder and bile ducts: Wall thickening of the gallbladder is likely reactive. No calcified stones. No ductal dilation. Pancreas: Unremarkable. No mass. No ductal dilation. Spleen: Unremarkable. No splenomegaly. Adrenals: Unremarkable. No mass. Kidneys and ureters: Unremarkable. No solid mass. No hydronephrosis. Stomach and bowel: Wall thickening of the small bowel and colon may be reactive. No obstruction. PELVIS: Appendix: Appendix is not visualized. Bladder: Unremarkable. No mass. Reproductive: Unremarkable as visualized. ABDOMEN and PELVIS: Intraperitoneal space: Mild to moderate ascites. No free air. Bones/joints: Sclerotic calcifications of the abdominal aorta and branches. A generative change in spine. No dislocation. No significant interval change in appearance of superior endplate fractures of T8, T9, and T11 vertebral bodies. Soft tissues: Unremarkable. Vasculature: Esophageal varices. Lymph nodes: Unremarkable. No enlarged lymph nodes. IMPRESSION: 1. Cirrhotic morphology of the liver with evidence of portal hypertension including esophageal varices. 2. Mild to moderate ascites. 3. Wall thickening of the small bowel and colon may be reactive. Enterocolitis cannot be excluded. Clinical correlation is recommended. Electronically signed by: Quentin Yang MD 07/28/23 20:35 PM Diagnostic Findings EKG as per my interpretation :Rate 80, NSR, normal axis, incomplete RBBB, PVCs
[2023-07-28] MEDS: ALBUMIN 25% 25 GM/100 ML VIAL IV ONE (21:05)
--- NOTE | 2023-07-28 21:08 | XRay Report ---
SINGLE VIEW CHEST CLINICAL HISTORY: Hyponatremia FINDINGS: An AP, portable, upright chest radiograph is compared to study dated 12/24/2022. The examinat ion is degraded by portable technique and patient rotation. The cardiomediastinal silhouette is unre markable. There is mild bibasilar scarring/atelectasis. Question mild airspace opacities in the right upper lobe. No large pleural effusion is identified. No pneumothorax is seen. The bony thorax is ashley ssly intact. IMPRESSION: Question mild airspace opacities in the right upper lobe. Correlate clinically for eviden ce of a mild pneumonitis. Radiographic follow-up to resolution is recommended. ACT 112: Negative or not required by law. Electronically signed by: Will Townsend M.D. 07/28/2023 9:07 PM
[2023-07-28] MEDS: STAT IV/IM STA (21:10)
[2023-07-28 21:29] LABS: Hematocrit (blood only) 25.5 % (42.0-52.0); Hemoglobin 9.5 g/dl (14.0-18.0); Immature Granulocytes # (auto) 0.05 K/uL (0.01-0.20); Immature Granulocytes % (auto) 0.8 %; Lymphocytes % (auto) 12.4 %; Mean Corpuscular Hemoglobin 36.5 pg (25.0-34.0); Mean Corpuscular Hgb Conc 37.3 g/dL (32.0-36.0); Mean Corpuscular Volume 98.1 fL (80.0-100.0); Mean Platelet Volume 10.5 fL (9.4-12.4); Monocytes % (auto) 6.2 %; Neutrophils % (auto) 80.6 %; Platelet Count 125 K/uL (130-400); RDW Coefficient of Variation 15.1 % (11.5-14.5); RDW Standard Deviation 53.3 fL (36.4-46.3); White Blood Count 6.45 K/ul (4.8-10.8)
[2023-07-28] MEDS: CALCIUM GLUCONATE 1,000 MG/60 ML BAG IV STA (21:44)
[2023-07-28] MEDS: MAGNESIUM SULFATE / D5W 1 GM/100 ML BAG IV SCH (21:45)
[2023-07-28] MEDS: THIAMINE HCL 100 MG in SYRINGE 9 ML IV ONE (21:46)
[2023-07-28] MEDS: POTASSIUM CHLORIDE CRTAB 20 MEQ TABCR PO ONE (21:46)
[2023-07-28] MEDS: LACTULOSE SYRUP 30 GM/45 ML UDP PO ONE (21:46)
[2023-07-28] MEDS ORDERED: ACETAMINOPHEN 500 MG TAB PO PRN (21:50)
[2023-07-28 22:39] LABS: Appearance Urine Clear (Clear); Bilirubin Urine Negative (Negative); Blood Urine Negative (Negative); Color Urine Yellow; Glucose Urine UA Negative (Negative); Ketones Urine Negative (Negative); Leukocyte Esterase Urine Negative (Negative); Nitrite Urine Negative (Negative); Protein Urine Negative (Negative); Specific Gravity Urine 1.008 (1.000-1.030); Urobilinogen Urine Negative (Negative); pH Urine 7.5 (4.5-7.5)
--- NOTE | 2023-07-28 22:58 | Critical Care Consultation ---
Date of Consultation July 28, 2023 Assessment & Plan (1) Acute hyponatremia: Reason Critically Ill: 38-year-old male with alcoholic cirrhosis, active alcohol use, presents to the emergency department with acute hyponatremia with sodium of 109, decompensated alcoholic cirrhosis, ascites, and esophageal varices noted on CT. Neuro - Alcohol abusepatient with continued alcohol use. Claiming he drinks 2 twisted teas per day. EtOH 16 on admission and reports last drink yesterday evening. He does have history of alcohol withdrawal seizure on previous admission. -No current symptoms of alcohol withdrawal at this time -Will initiate KENNY S scale -Continue thiamine, multivitamin, folic acid Cardiac - No history of cardiac disease. Currently normotensive in sinus rhythm on monitor. Continuous monitoring on telemetry Respiratory - No history of pulmonary disease. Currently maintaining oxygen saturations on room air without respiratory distress. Continuous monitoring on pulse oximetry GI - Decompensated alcoholic hepatitispatient active drinker with current MELD score of 27. He is previously seen by hepatology but failed for follow-up. On previous admission he was uninterested and workup for liver transplant service. He was positive for hepatitis B in December. - CT abdomen and pelvis showing alcoholic cirrhosis with portal hypertension and esophageal varices. - No symptoms of GI bleeding at this time although he did have an elevated INR of 1.7 and was given vitamin K. -Ammonia of 80 without evidence of hepatic encephalopathy. Will start on lactulose regimen -GI consult pending RENAL/LYTES - Acute hyponatremiaappears to be hypervolemic hypoosmolar hyponatremia with sodium of 109. Currently asymptomatic. Will attempt to correct 6 to 8 mEq / 24 hours -3% NSS drip ordered. Will adjust rate as needed with every 4 hours BMP -Fluid restriction 1800 mL -Nephrology consult pending - Strict I's and O's ENDO - No history of diabetes or thyroid disease. ICU hyperglycemic protocol HEME - H&H stable. Thrombocytopenia with platelets 125 likely due to cirrhosis/ ID - No indication for infectious process at this time. Will start on empiric ceftriaxone LINES/IV ACCESS - Peripheral IVs DVT PROPHYLAXIS - SCDs, hold anticoagulation for elevated INR and esophageal varices I have personally spent 45 minutes of critical care time in the direct management of this patient. This is a life/limb threatening event. This includes time spent evaluating patient, direct bedside care, chart review, placing orders, interpretation of diagnostic studies, discussion with consultants, patient, and family members, as well as other required patient management a ctivities. This time is exclusive of all separately billable procedures, and teaching time and separate from and in addition to any other critical care service time. Thank you for allowing us to participate in the care of this patient. Please refer to my attending physician's documentation for any further recommendations. (2) Decompensation of cirrhosis of liver: (3) Acute hypokalemia: (4) Dizziness: (5) Transaminitis: (6) Hyperbilirubinemia: (7) Alcohol dependence: (8) Hepatitis: History of Present Illness Attending Physician: Tianna Santiago MD History of Present Illness Patient is a 38-yeAR-old male that presented to the emergency department with complaints of abdominal distention, lightheadedness, and dizziness with standing. He has past medical history of alcoholic hepatitis, previous paracentesis, alcohol withdrawal seizure, hepatitis B, SAH and recent admission in December with decompensated cirrhosis and active drinker reporting to twisted teas per day. His EtOH on admission was 16 and he claims that his last drink was yesterday evening. He has failed to follow-up with hepatology and primary care as of recent, and was not previously interested in liver transplant when seen in December. In the emergency department patient's sodium was noted to be 109 and he was hypokalemic with potassium of 2.2. He was treated with 3% NSS bolus of [address] abdomen and pelvis shows cirrhotic morphology of the liver with evidence of portal hypertension including esophageal varices, mild to moderate ascites. Patient's current MELD score is 27, and ammonia elevated at 81 for which she received lactulose. On arrival to the ICU the patient is alert and oriented. He reports having weakness and dizziness over the past few days with worsening abdominal distention over the past 2 weeks. He currently denies headache, fainting or syncope episodes, changes in vision, recent illness or fevers, sore throat, congestion or cough, chest pain or palpitations, shortness of breath, abdominal pain, Nausea vomiting or diarrhea, swelling in hands or feet, changes in gait. Patient was noted on exam to have small scabs in different areas of his body which appear to be healing. He states these are from air soft. Patient to remain in ICU for further management at this time. Allergies Allergy/AdvReac Type Severity Reaction Status Date / Time No Known Allergies Allergy Verified 07/28/23 20:17 Home Medications Medication Instructions Recorded Confirmed Type multivitamin 1 tab PO DAILY 12/04/22 07/28/23 History acetaminophen 500 mg tablet 500 mg PO Q6H PRN PAIN/FEVER 07/28/23 07/28/23 History torsemide 20 mg tablet 40 mg PO QAM 07/28/23 07/28/23 History Patient History Medical History (Updated 07/29/23 @ 09:10 by Bandar Suarez DO) Abdominal ascites Seizure EtOH withdrawal 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 Hyponatremia Chronic Anemia Thrombocytopenia Alcohol withdrawal Hepatitis Tobacco use Chronic hyponatremia Alcohol use CHI (closed head injury) Surgical History No pertinent past surgical history Family History Other Multiple myeloma Social History Smoking Status: Current every day smoker Tobacco Type: Cigarettes Cigarettes Per Day: 20; Second Hand Exposure: Yes; Do You Dip or Chew Tobacco: No; Hx Alcohol Use: Yes Alcohol type: beer Hx Substance Use: No Preferred Language: Latvian Communication Ability: Effective Hearing Ability: Normal Speaking Unit Assembler Required: No Beliefs That Will Affect Care: None marital status: Single Current Living Situation: Alone current occupational status: employed Other Information That Helps Us Care for You: No Feels Safe at Home: Yes Safety Concerns: Feels Safe At This Time Assistive Devices: None Review of Systems Review of Systems: All systems reviewed & are unremarkable except as noted in HPI & below Physical Exam Constitutional: cooperative and comfortable; no acute distress Eyes: PERRL, conjunctivae normal, anicteric sclerae ENMT: external ear and nose normal, oropharynx normal Neck: trachea midline, no thyromegaly Respiratory: normal respiratory effort, lungs clear to auscultation Cardiovascular: Rate/Rhythm: regular rate and regular rhythm Heart Sounds: normal S1 and normal S2 Extremities: no edema Gastrointestinal (Abdomen): Abdomen semifirm, distended, nontender. Bowel sounds auscultated all 4 quadrants Musculoskeletal: no cyanosis or clubbing, extremities motor strength 5/5 Skin: Scabs noted in various areas of the body, approximately 2 to 4 cm in diameter, and appear to be healing and noninfectious in appearance Neurologic: PERRL, EOMI, accommodation nl, no face palsy, no dysarthria Psychiatric: Orientation: oriented x 3 Eye Contact: + poor eye contact Affect: + flat affect Results & Data Results & Data Vital Signs (Past 12 Hours) Vital Signs Temp Pulse Resp BP Pulse Ox O2 Del Method 07/28/23 22:40 93 H 16 115/79 98 Room Air 07/28/23 17:59 91 H 07/28/23 17:39 36 C L 93 H 18 106/71 99 Room Air Diagnostic Findings EXAM: CT Abdomen and Pelvis With Intravenous Contrast CLINICAL HISTORY: Reason for exam: generalized abdominal pain and distension. TECHNIQUE: Axial computed tomography images of the abdomen and pelvis with intravenous contrast. CTDI is 18.4 mGy and DLP is 953.35 mGy-cm. Automated exposure control was utilized for the study. A dose lowering technique was utilized adhering to the principles of ALARA. CONTRAST: Patient received 89ML OPTIRAY 320 of IV contrast COMPARISON: CT abdomen and pelvis 12/23/2022. FINDINGS: Lung bases: Unremarkable. No mass. No consolidation. ABDOMEN: Liver: Cirrhotic morphology of the liver with evidence of portal hypertension including esophageal varices. Gallbladder and bile ducts: Wall thickening of the gallbladder is likely reactive. No calcified stones. No ductal dilation. Pancreas: Unremarkable. No mass. No ductal dilation. Spleen: Unremarkable. No splenomegaly. Adrenals: Unremarkable. No mass. Kidneys and ureters: Unremarkable. No solid mass. No hydronephrosis. Stomach and bowel: Wall thickening of the small bowel and colon may be reactive. No obstruction. PELVIS: Appendix: Appendix is not visualized. Bladder: Unremarkable. No mass. Reproductive: Unremarkable as visualized. ABDOMEN and PELVIS: Intraperitoneal space: Mild to moderate ascites. No free air. Bones/joints: Sclerotic calcifications of the abdominal aorta and branches. A generative change in spine. No dislocation. No significant interval change in appearance of superior endplate fractures of T8, T9, and T11 vertebral bodies. Soft tissues: Unremarkable. Vasculature: Esophageal varices. Lymph nodes: Unremarkable. No enlarged lymph nodes. IMPRESSION: 1. Cirrhotic morphology of the liver with evidence of portal hypertension including esophageal varices. 2. Mild to moderate ascites. 3. Wall thickening of the small bowel and colon may be reactive. Enterocolitis cannot be excluded. Clinical correlation is recommended. Electronically signed by: Quentin Yang MD 07/28/23 20:35 PM Coding Level of Care Code 93095 CRITICAL CARE 1ST 30-74M Diagnoses Acute hyponatremia E87.1 Decompensation of cirrhosis of liver K72.90; K74.60 Acute hypokalemia E87.6 Dizziness R42 Transaminitis R74.01 Hyperbilirubinemia E80.6 Alcohol dependence F10.20 Hepatitis K75.9
[2023-07-28] MEDS ORDERED: STAT IV/IM STA (23:27)
[2023-07-28 23:49] LABS: Troponin I High Sensitivity 20.1 pg/ml (0-20)
--- OUTSIDE RECORDS SUMMARY | 2023-07-28 23:56 | External Medical Summary | Summary of Care ---
Author Name Unknown Organization [facility] Address [address] [place] [address] Phone [phone] Care Team Providers Care Protective Signal Operations Supervisor Name Role Phone Hannah Albrecht Primary Care Provider Reason for Visit * Reason Onset Date Comments Appointment 04/04/2023 Encounter Details Date Type Department Care Team Description 04/04/2023 Telephone Nephrology, [address] [address] Allen Mcdonough MD [address] [place] [id number] Appointment Allergies Active Allergy Reactions Severity Noted Date Comments Cat Dander Other (Please comment) 07/21/2021 Watery eyes and sneezing documented as of this encounter (statuses as of 04/04/2023) Medications Medication Sig Dispensed Refills Start Date End Date Status Multivitamin Adult Oral Tablet Take 1 Tablet by mouth in the morning. 0 Active Magnesium Oxide 400 (241.3 Mg) MG Oral Tablet Take 400 mg by mouth in the morning. 0 Active Folic Acid 1 MG Oral Tablet TAKE 1 TABLET BY MOUTH ONCE DAILY IN THE MORNING 0 12/08/2022 Active Potassium Chloride Sandy ER 20 MEQ Oral Tablet Extended Release Take 1 Tablet by mouth in the morning and 1 Tablet before bedtime. 0 12/08/2022 Active Spironolactone 50 MG Oral Tablet (Aldactone) Take 1 Tablet by mouth in the morning. 90 Tablet 3 12/19/2022 Active Torsemide 20 MG Oral Tablet (Demadex) Take 2 Tablets by mouth in the morning. 180 Tablet 3 12/19/2022 Active documented as of this encounter (statuses as of 04/04/2023) Active Problems Problem Noted Date Hepatic steatosis 05/17/2022 Tobacco use 05/17/2022 Uncomplicated alcohol dependence 022 Pulmonary nodule 05/17/2022 Subarachnoid hemorrhage 05/11/2022 documented as of this encounter (statuses as of 04/04/2023) Immunizations Name Administration Dates Next Due DT - Diptheria/Tetanus (PEDS) 07/27/2000 DTaP Dipth/Tet/Acell Pertussis (Infanrix), Peds 01/26/1988,03/29/1985,1983,05/16,1983 HEP B - Hepatitis B (Adole/H igh Risk Ped, 11-15 yrs 07/16/1998,02/02/1998,12/29/1997 IPV - Polio Virus Vaccine (Inact) 1987,1983,1983,03/21 MMR - Measles/Mumps/Rubella Vaccine 03/02/1992,1 1983 Meningococcal Conjugate Vacc ine (Menactra/Menveo) 01/31/2002 TDAP (age 11 and older)(Adacel) 12/02/2007 documented as of this encounter Social History Tobacco Use Types Packs/Day Years Used Date Smoking Tobacco: Every Day Smokeless Tobacco: Never Alcohol Use Standard Drinks/Week Comments Yes 0 (1 standard drink = 0.6 oz pur e alcohol) Sex Assigned at Date Recorded Not on file Job Start Date Occupation Industry Not on file Not on file Not on file documented as of this encounter Functional Status Functional Status Response Date of Assess ment Are you deaf or do you have serious difficulty h earing? No 05/11/2022 Are you blind or do you have serious difficulty seeing, even when wearing glasses? No 05/11/2022 Do you have serious difficul ty walking or climbing stairs? (5 years old or older) No 05/11/2022 Do you have difficulty dress ing or bathing? (5 years old or older) No 05/11/2022 Because of a physical, menta l, or emotional condition, do you have difficulty doing errands alone such as visiting a doctor s office or shopping? (15 years old or older) No 11/23/20 22 Cognitive Status Response Date of Assessm ent Because of a physical, menta l, or emotional condition, do you have serious difficulty concentrating, remembering, or making decisions? (5 years old or older No 05/11/2022 documented as of this encounter Miscellaneous Notes * Telephone Encounter - MAYLIN Arcos - 04/04/2023 10:06 AM EDT 04/04 called patient, left message. Trying to get patient re-scheduled for a follow-up with Dr. Mcdonough. Patient is on the lost to follow-up report. Needed to be seen in 2022. documented in this encounter Plan of Treatment Health Maintenance Due Date Last Done Comments Lipid Panel 1983 Pneumococcal Vaccine: Pediatrics (0 to 5 Years) and At-Risk Patients (6 to 64 Years) (1 - PCV) 1989 Depression Screening 1995 HIV Screening 1998 Hepatitis C Screening 2001 DTaP,Tdap,and Td Vaccines (8 - Td or Tdap) 12/01/2017 12/02/2007, 07/27/2000, 01/26/1988, Additional history exists COVID-19 Vaccine ( - season) 2023 11/04/2020, 10/14/2020 Influenza Vaccine (FLU shot) (#1) 2023 Hepatitis B Completed 07/16/1998, 01/17, 12/29/1997 MENINGOCOCCAL (MENACTRA/MENVEO) Aged Out 01/31/2002 No longer eligible based on patient's age to complete this topic GARDASIL-HPV IMMUNIZATION SERIES Aged Out No longer eligible based on patient's age to complete this topic documented as of this encounter Medical Devices Implanted Type Area Culinary Manager Device Identifier Shelf Expiration Date Model / Serial / Lot Angioseal Vip 6 Fr - [id number] Implanted:Qty : 1 on 05/11/2022 by Bandar Okeefe MD at OR [facility] [place] Right: [id number] [id number] 02/16/2023 [id number] / / [id number] documented as of this encounter Advance Directives Latest Code Status on File Code Status Date Activated Date Inactivated Comments Full Code 05/11/2022 10:10 AM 05/12/2022 2:24 PM Th is order reflects the patients wishes and were consensually agreed upon. Question Answer Comments Discussion of Advance Directives occurred with: Patient Does the patient have a Living Will? No Does the patient have Health Care Power of Feed Mill Tender? No Care Teams Protective Signal Operations Supervisor Relationship Specialty Start Date End Date Hannah Albrecht DO [address] [place] [address] PCP - General Family Medicine 07/21/21 documented as of this encounter
--- OUTSIDE RECORDS SUMMARY | 2023-07-28 23:56 | External Medical Summary | Summary of Care ---
Author Name Unknown Organization [facility] Address [address] [place] [address] Phone [phone] Care Team Providers Care Wedding Photographer Name Role Phone Hannah Albrecht DO Primary Care Provider Reason for Visit * Reason Onset Date Comments Appointment 04/04/2023 Encounter Details Date Type Department Care Team (Late st Contact Info) Description 04/04/2023 Telephone Nephrology, [address] [address] Allen Mcdonough MD [address] [place] [phone] Appointment Allergies Active Allergy Reactions Criticality Noted Date Comments Cat Dander Other (Please comment) 07/21/2021 Watery eyes and sneezing documented as of this encounter (statuses as of 04/20/2023) Medications Medication Sig Dispensed Refills Start Date [...] as of this encounter (statuses as of 04/20/2023) Active Problems Problem Noted Date Diagnosed Date Hepatic steatosis 05/17/2022 Tobacco use 05/17/2022 Uncomplicated alcohol dependence 05/17/2022 Pulmonary nodule 05/17/2022 Subarachnoid hemorrhage 05/11/2022 documented as of this encounter (statuses as of 04/20/2023) Immunizations Name Administration Dates Next Due DT [...] = 0.6 oz pur e alcohol) Sex and Gender Information Value Date Recorded Sex Assigned at Not on file Gender Identity Not on file Sexual Orientation Not on file Job Start Date Occupation [...] shopping? (15 years old or older) No 05/11/20 22 Cognitive Status Response Date of Assessm ent Because of a physical, menta l, or emotional condition, do you have serious difficulty concentrating, remembering, or making decisions? (5 years old or older No 05/11/2022 documented as of this encounter Miscellaneous Notes * Telephone Encounter - Deidra Ramesh OSA - 04/20/2023 9:18 AM EDT 04/20 called patient, left message. Trying to get patient re-scheduled for a follow-up with Dr. Mcdonough. Patient is on the lost to follow-up report. Needed to be seen in 2022. Letter being sent out. * Telephone Encounter - Deidra Ramesh OSA - 04/04/2023 10:06 AM EDT 04/04 called [...] 07/27/2000, 01/26/1988, Additional history exists COVID-19 Vaccine (3 - 2022- season) 2023 11/04/2020, 10/14/2020 Influenza Vaccine (FLU shot) (#1) 2023 Hepatitis B Completed 07/16/1998, 01/17, 12/29/1997 MENINGOCOCCAL (MENACTRA/MENVEO) Aged Out 01/31/2002 No longer eligible based on patient's age to complete this topic GARDASIL-HPV IMMUNIZATION SERIES Aged Out No longer eligible based on patient's age to complete this topic documented as of this encounter Medical Devices Implanted Type Area Mail Weigher Device Identifier Shelf Expiration Date Model / Serial / Lot Angioseal Vip 6 Fr - [id number] Implanted:Qty : 1 on 05/11/2022 by Bandar Okeefe MD at [facility] Right: [employer] [id number] 02/16/2023 [id number] / / [id number] documented as of this encounter Advance Directives [...] the patient have Health Care Power of Slat Basket Maker? No Care Teams Wedding Photographer Relationship Specialty Start Date End Date Hannah Albrecht DO [address] [place] [address] PCP - General Family Medicine 07/21/21 documented as of this encounter
[2023-07-28] MEDS: SODIUM CHLORIDE 3 % 50 ML IV ONE (23:59)
[2023-07-29] MEDS: POTASSIUM CHLORIDE CRTAB 20 MEQ TABCR PO STA ×2 (00:07→05:10)
[2023-07-29] MEDS: POTASSIUM CHLORIDE CRTAB 20 MEQ TABCR PO ONE (00:08)
[2023-07-29] MEDS: SODIUM CHLORIDE 3 % 500 ML IV SCH (00:08)
[2023-07-29] MEDS: PHYTONADIONE 10 MG in DEXTROSE 5% 50 ML IV STA (01:02)
[2023-07-29] MEDS: cefTRIAXone SODIUM 2,000 MG in DEXTROSE 5 % MINI-B 50 ML IV SCH (01:37)
[2023-07-29] MEDS: DEXTROSE 5% 500 ML IV ONE (01:58)
[2023-07-29] MEDS: DESMOPRESSIN ACETATE 2 MCG in SODIUM CHLORIDE 0.9% 50 ML IV ONE ×2 (02:11→11:20)
[2023-07-29 03:14] LABS: Adenovirus PCR Not Detected (NotDetected); Bordetella parapertussis PCR Not Detected (NotDetected); Bordetella pertussis PCR Not Detected (NotDetected); Chlamydia pneumoniae PCR Not Detected (NotDetected); Coronavirus 229E PCR Not Detected (NotDetected); Coronavirus CoV-2 (COVID19)PCR Not Detected (NotDetected); Coronavirus HKU1 PCR Not Detected (NotDetected); Coronavirus NL63 PCR Not Detected (NotDetected); Coronavirus OC43PCR Not Detected (NotDetected); Human Metapneumovirus PCR Not Detected (NotDetected); Influenza A PCR Not Detected (NotDetected); Influenza B PCR Not Detected (NotDetected); Mycoplasma pneumoniae PCR Not Detected (NotDetected); Parainfluenza Virus 1 PCR Not Detected (NotDetected); Parainfluenza Virus 2 PCR Not Detected (NotDetected); Parainfluenza Virus 3 PCR Not Detected (NotDetected); Parainfluenza Virus 4 PCR Not Detected (NotDetected); Respiratory Syncytial VirusPCR Not Detected (NotDetected); Rhinovirus/Enterovirus PCR Not Detected (NotDetected)
[2023-07-29 04:36] LABS: Albumin Globulin Ratio 1.1 (0.9-2); Albumin Level 2.6 gm/dl (3.4-5.0); BUN Creatinine Ratio 3.5 (10-20); Bilirubin,Total 4.3 mg/dl (0.2-1.0); Calcium 7.1 mg/dl (8.6-10.3); Creatinine Clr Calc Pharmacy 161.1 ml/min; Est GFR (African American) 148.9 ml/min; Est GFR (Non-African American) 128.4 ml/min; Globulin 2.4 gm/dl (2.5-4.0); Magnesium 1.8 mg/dl (1.7-2.4); Potassium 2.4 mmol/L (3.5-5.1)
[2023-07-29] MEDS: MAGNESIUM SULFATE / D5W 1 GM/100 ML BAG IV SCH (05:10)
[2023-07-29] MEDS: POTASSIUM CHLORIDE / WTR 10 MEQ/100 ML PLCT IV SCH ×2 (05:10→11:22)
[2023-07-29] MEDS: DEXTROSE 5% 250 ML IV ONE (05:10)
[2023-07-29 05:55] LABS: INR 1.6 (0.9-1.1); Prothrombin Time 17.4 Seconds (9.0-12.0)
--- NOTE | 2023-07-29 07:06 | Electrocardiogram Report ---
Test Reason : Blood Pressure : / mmHG Vent. Rate : 082 BPM Atrial Rate : 082 BPM P-R Int : 144 ms QRS Dur : 096 ms QT Int : 506 ms P-R-T Axes : 051 032 062 degrees QTc Int : 591 ms Sinus rhythm with occasional Premature ventricular complexes Otherwise normal ECG When compared with ECG of 23-DEC-2022 00:36, Premature ventricular complexes are now Present Incomplete right bundle branch block is no longer Present Confirmed by Ki Marks ([id number]) on 07/29/2023 7:06:24 AM Referred By: REFERRED SELF Confirmed By:Kannan Marks
[2023-07-29 07:37] LABS: Basophilic Stippling 1+; Lymphocytes % (auto) 8.8 %; Mean Corpuscular Hgb Conc 37.5 g/dL (32.0-36.0); Monocytes # (auto) 0.25 K/uL (0.11-0.59); Monocytes % (auto) 7.4 %; Neutrophils # (auto) 2.85 K/uL (1.40-6.50); Neutrophils % (auto) 83.8 %; Pappenheimer Bodies 1+; Platelet Count 110 K/uL (130-400); Polychromasia 2+; RDW Coefficient of Variation 15.9 % (11.5-14.5); RDW Standard Deviation 54.8 fL (36.4-46.3); Target Cells 3+
[2023-07-29] MEDS ORDERED: MULTIVITAMIN TAB PO SCH (09:00)
[2023-07-29] MEDS ORDERED: NON-FORMULARY MEDICATION (Multivitamin Tablet) PO SCH (09:00)
[2023-07-29 09:01] LABS: BUN Creatinine Ratio 3.3 (10-20); Calcium 7.3 mg/dl (8.6-10.3); Creatinine Clr Calc Pharmacy 150.5 ml/min; Est GFR (African American) 144.8 ml/min; Est GFR (Non-African American) 124.9 ml/min; Magnesium 2.3 mg/dl (1.7-2.4); Potassium 2.5 mmol/L (3.5-5.1)
--- NOTE | 2023-07-29 09:03 | Nephrology Consultation ---
Date of Consultation July 29, 2023 Assessment & Plan (1) Acute hyponatremia: 1) Hyponatremia: 2/ Beer [place]/Decompensated liver disease , Very low Uosm >>Poor solute intake.Asymptomatic with low bp and ascitis. - Received Hypertonic saline in ER, Sodium over corrected.-- His admitteting Na was 109 at @6.00pm. Aim of 6--8 mmol rise until 6.00 Pm today - Over corrected- Has Received 1 dose of Desmopressin- Repeat NA awaited. Plan: BMP q4 until sodium reaches 125. FR to 1.8 lit today, This can be gradually decreased as sodium improves to safer levels No lasix / Hypertonic Saline /albumin - I more dose of desmopressin 2 mcg if Sodium > 113 on next check. (2) Acute hypokalemia: 2/ poor intake / diuretics - Keep more than 4, replace orally (3) Decompensation of cirrhosis of liver: Will need Paracentesis and restarting of Diuretics.Would wait until Na> 125. History of Present Illness Reason for Consultation: Hyponatremia on kamryn will decompensated liver disease , actively drinking Attending Physician: Tianna Santiago MD History of Present Illness Medical history significant for alcoholic cirrhosis, history alcohol withdrawal seizures, SAH, intracranial aneurysm, chronic hyponatremia, emphysema as per records, ongoing alcohol/ tobacco abuse, chronic anemia ( baseline hemoglobin 9- 11), medical noncompliance,SAH, intracranial aneurysm P/ w increasing abdominal girth after he " ran out of his pills". Actively drinking alcohol. . Tolerable headache symptoms without confusion.No SOB. Serum sodium was noted to be 109. NSS and hypertonic saline administered at the ER.Kamryn moved to ICU for close monitoring. 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 Hyponatremia Chronic Anemia Thrombocytopenia Alcohol withdrawal Hepatitis Tobacco use Chronic hyponatremia Alcohol use CHI (closed head injury) Surgical History No pertinent past surgical history Family History Other Multiple myeloma Social History Smoking Status: Current every day smoker Tobacco Type: Cigarettes Cigarettes Per Day: 20; Second Hand Exposure: Yes; Do You Dip or Chew Tobacco: No; Hx Alcohol Use: Yes Alcohol type: beer Hx Substance Use: No Preferred Language: Tuvaluan Communication Ability: Effective Hearing Ability: Normal Commanding Officer Homicide Squad Required: No Beliefs That Will Affect Care: None marital status: Single Current Living Situation: Alone current occupational status: employed Other Information That Helps Us Care for You: No Feels Safe at Home: Yes Safety Concerns: Feels Safe At This Time Assistive Devices: None Review of Systems 2 Review of Systems: All systems reviewed & are unremarkable except as noted in HPI & below Physical Exam 2 Physical Exam: Constitutional: Alert, but withdrawn and does not want to engage he is resting in bed. HEENT: Unremarkable Neck: No jugular venous distention, carotid pulses are normal and equal bilaterally without bruits. Pulmonary: Clear to auscultation bilaterally. Cardiac: Regular rhythm with no murmur, gallop or rub. Abdomen: Distended, soft, diffuse tenderness Results & Data Vital Signs (Past 12 Hours) Vital Signs Temp Pulse Pulse Resp BP BP Pulse Ox 07/29/23 07:00 94 H 15 96 07/29/23 06:50 97 H 15 95 07/29/23 06:40 100 H 17 97 07/29/23 06:30 93 H 14 90 07/29/23 06:20 98 H 13 89 L 07/29/23 06:10 115 H 11 L 93 07/29/23 06:00 100/67 07/29/23 06:00 107 H 15 93 07/29/23 05:50 110 H 24 96 07/29/23 05:40 108 H 15 100 07/29/23 05:30 107 H 14 98 07/29/23 05:20 109 H 16 91 07/29/23 05:10 109 H 13 90 02/10/24 05:00 82/63 L 07/29/23 05:00 106 H 12 89 L 07/29/23 04:50 113 H 13 85 L 07/29/23 04:40 107 H 15 86 L 07/29/23 04:30 109 H 16 90 07/29/23 04:20 113 H 13 93 07/29/23 04:10 119 H 20 91 07/29/23 04:00 97/60 L 07/29/23 04:00 107 H 20 92 07/29/23 03:50 98 H 16 92 07/29/23 03:40 100 H 19 91 07/29/23 03:30 98 H 17 93 07/29/23 03:20 99 H 18 95 07/29/23 03:13 95/61 L 07/29/23 03:13 97 H 17 86 L 07/29/23 03:10 97 H 18 96 07/29/23 03:00 101 H 18 96 07/29/23 02:50 101 H 18 96 07/29/23 02:40 99 H 16 97 07/29/23 02:30 99 H 16 98 07/29/23 02:20 101 H 15 98 07/29/23 02:10 101 H 19 98 07/29/23 02:00 98/63 L 07/29/23 02:00 101 H 18 100 07/29/23 01:50 106 H 24 99 07/29/23 01:40 106 H 24 97 07/29/23 01:30 108 H 19 98 07/29/23 01:20 113 H 25 H 96 07/29/23 01:10 116 H 22 98 07/29/23 01:01 139 H 23 99 07/29/23 01:01 114/97 07/29/23 01:00 128 H 22 93 07/29/23 00:50 120 H 26 H 100 07/29/23 00:40 108 H 18 99 07/29/23 00:30 108 H 24 99 07/29/23 00:20 105 H 29 H 100 07/29/23 00:10 103 H 18 100 07/29/23 00:00 94 H 15 95 07/29/23 00:00 99/74 L 07/29/23 00:00 88 07/28/23 23:50 93 H 13 94 07/28/23 23:40 88 14 97 07/28/23 23:31 36.7 C 94 H 16 110/69 96 07/28/23 23:30 92 H 13 95 07/28/23 23:20 94 H 13 100 07/28/23 23:10 111 H 24 94 07/28/23 23:00 85 12 100 07/28/23 23:00 110/69 07/28/23 22:50 87 15 98 07/28/23 22:40 100 H 13 99 07/28/23 22:40 93 H 16 115/79 98 07/28/23 22:37 90 20 07/28/23 22:37 115/79 07/28/23 22:35 92 H 8 L 99 O2 Del Method 07/29/23 07:00 07/29/23 06:50 07/29/23 06:40 07/29/23 06:30 07/29/23 06:20 07/29/23 06:10 07/29/23 06:00 07/29/23 06:00 07/29/23 05:50 07/29/23 05:40 07/29/23 05:30 07/29/23 05:20 07/29/23 05:10 07/29/23 05:00 07/29/23 05:00 07/29/23 04:50 07/29/23 04:40 07/29/23 04:30 07/29/23 04:20 07/29/23 04:10 07/29/23 04:00 07/29/23 04:00 07/29/23 03:50 07/29/23 03:40 07/29/23 03:30 07/29/23 03:20 07/29/23 03:13 07/29/23 03:13 07/29/23 03:10 07/29/23 03:00 07/29/23 02:50 07/29/23 02:40 07/29/23 02:30 07/29/23 02:20 07/29/23 02:10 07/29/23 02:00 07/29/23 02:00 07/29/23 01:50 07/29/23 01:40 07/29/23 01:30 07/29/23 01:20 07/29/23 01:10 07/29/23 01:01 07/29/23 01:01 07/29/23 01:00 07/29/23 00:50 07/29/23 00:40 07/29/23 00:30 07/29/23 00:20 07/29/23 00:10 07/29/23 00:00 07/29/23 00:00 07/29/23 00:00 07/28/23 23:50 07/28/23 23:40 07/28/23 23:31 Room Air 07/28/23 23:30 07/28/23 23:20 07/28/23 23:10 07/28/23 23:00 07/28/23 23:00 07/28/23 22:50 07/28/23 22:40 07/28/23 22:40 Room Air 07/28/23 22:37 07/28/23 22:37 07/28/23 22:35 Laboratory Results 07/29/23 04:00
--- NOTE | 2023-07-29 09:13 | Surgery Consultation ---
Date of Consultation July 29, 2023 Assessment & Plan (1) Abdominal pain: I reviewed his ct scan. gallbladder thickening likely secondary to ascites. no clinical signs of ischemia. ? potential for infected ascites... could have IR tap and culture. no urgent indication for surgical exploration. I wo uld cover with empiric antibiotics and observation. will follow along for now. (2) Decompensation of cirrhosis of liver: (3) Hyponatremia: (4) Hypomagnesemia: (5) Hyperbilirubinemia: (6) Alcohol dependence: (7) Alcohol withdrawal: (8) Abdominal ascites: History of Present Illness Attending Physician: Tianna Santiago MD History of Present Illness 38 year old non-compliant alcoholic with cirrhosis. requested to see pt for elevated LA and abd pain. pt states no pain when lying still. does have some mild/moderate pain to palpation in LUQ. pt presented b/c he was distended and his plan was to come in and obtain a paracentesis which he states he has had 2 times prior. he did eat part of his breakfast tray today Allergies Allergy/AdvReac Type Severity Reaction Status Date / Time No Known Allergies Allergy Verified 07/28/23 20:17 Home Medications Medication Instructions Recorded Confirmed Type multivitamin 1 tab PO DAILY 12/04/22 07/28/23 History acetaminophen 500 mg tablet 500 mg PO Q6H PRN PAIN/FEVER 07/28/23 07/28/23 History torsemide 20 mg tablet 40 mg PO QAM 07/28/23 07/28/23 History Patient History Medical History (Updated 07/29/23 @ 09:10 by Bandar Suarez DO) Abdominal ascites Seizure EtOH withdrawal 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 Hyponatremia Chronic Anemia Thrombocytopenia Alcohol withdrawal Hepatitis Tobacco use Chronic hyponatremia Alcohol use CHI (closed head injury) Surgical History No pertinent past surgical history Family History Other Multiple myeloma Social History Smoking Status: Current every day smoker Tobacco Type: Cigarettes Cigarettes Per Day: 20; Second Hand Exposure: Yes; Do You Dip or Chew Tobacco: No; Hx Alcohol Use: Yes Alcohol type: beer Hx Substance Use: No Preferred Language: Vietnamese Communication Ability: Effective Hearing Ability: Normal Senior Programmer Required: No Beliefs That Will Affect Care: None marital status: Single Current Living Situation: Alone current occupational status: employed Other Information That Helps Us Care for You: No Feels Safe at Home: Yes Safety Concerns: Feels Safe At This Time Assistive Devices: None Physical Exam Constitutional: WD/WN, vitals as above no acute distress and not ill appearing Eyes: PERRL, conjunctivae normal, anicteric sclerae EOM intact bilaterally ENMT: external ear and nose normal, oropharynx normal Ears: no hearing impairment Neck: trachea midline, no thyromegaly Respiratory: normal respiratory effort; no respiratory distress and does not use accessory muscles Cardiovascular: Rate/Rhythm: regular rate and regular rhythm Gastrointestinal (Abdomen): distended. +fluid wave. +umbilical hernia. no skin color changes. +LUQ ttp. Psychiatric: Orientation: alert, oriented x 3 and cooperative Results & Data Vital Signs (Past 12 Hours) Vital Signs Temp Pulse Pulse Resp BP BP Pulse Ox 07/29/23 07:00 94 H 15 96 07/29/23 06:50 97 H 15 95 07/29/23 06:40 100 H 17 97 07/29/23 06:30 93 H 14 90 07/29/23 06:20 98 H 13 89 L 07/29/23 06:10 115 H 11 L 93 07/29/23 06:00 100/67 07/29/23 06:00 107 H 15 93 07/29/23 05:50 110 H 24 96 07/29/23 05:40 108 H 15 100 07/29/23 05:30 107 H 14 98 07/29/23 05:20 109 H 16 91 07/29/23 05:10 109 H 13 90 07/29/23 05:00 82/63 L 07/29/23 05:00 106 H 12 89 L 07/29/23 04:50 113 H 13 85 L 07/29/23 04:40 107 H 15 86 L 07/29/23 04:30 109 H 16 90 07/29/23 04:20 113 H 13 93 07/29/23 04:10 119 H 20 91 07/29/23 04:00 97/60 L 07/29/23 04:00 107 H 20 92 07/29/23 03:50 98 H 16 92 07/29/23 03:40 100 H 19 91 07/29/23 03:30 98 H 17 93 07/29/23 03:20 99 H 18 95 07/29/23 03:13 95/61 L 07/29/23 03:13 97 H 17 86 L 07/29/23 03:10 97 H 18 96 07/29/23 03:00 101 H 18 96 07/29/23 02:50 101 H 18 96 07/29/23 02:40 99 H 16 97 07/29/23 02:30 99 H 16 98 07/29/23 02:20 101 H 15 98 07/29/23 02:10 101 H 19 98 07/29/23 02:00 98/63 L 07/29/23 02:00 101 H 18 100 07/29/23 01:50 106 H 24 99 07/29/23 01:40 106 H 24 97 07/29/23 01:30 108 H 19 98 07/29/23 01:20 113 H 25 H 96 07/29/23 01:10 116 H 22 98 07/29/23 01:01 139 H 23 99 07/29/23 01:01 114/97 07/29/23 01:00 128 H 22 93 07/29/23 00:50 120 H 26 H 100 07/29/23 00:40 108 H 18 99 07/29/23 00:30 108 H 24 99 07/29/23 00:20 105 H 29 H 100 07/29/23 00:10 103 H 18 100 07/29/23 00:00 94 H 15 95 07/29/23 00:00 99/74 L 07/29/23 00:00 88 07/28/23 23:50 93 H 13 94 07/28/23 23:40 88 14 97 07/28/23 23:31 36.7 C 94 H 16 110/69 96 07/28/23 23:30 92 H 13 95 07/28/23 23:20 94 H 13 100 07/28/23 23:10 111 H 24 94 07/28/23 23:00 85 12 100 07/28/23 23:00 110/69 07/28/23 22:50 87 15 98 07/28/23 22:40 100 H 13 99 07/28/23 22:40 93 H 16 115/79 98 07/28/23 22:37 90 20 07/28/23 22:37 115/79 07/28/23 22:35 92 H 8 L 99 O2 Del Method 07/29/23 07:00 07/29/23 06:50 07/29/23 06:40 07/29/23 06:30 07/29/23 06:20 07/29/23 06:10 07/29/23 06:00 07/29/23 06:00 07/29/23 05:50 07/29/23 05:40 07/29/23 05:30 07/29/23 05:20 07/29/23 05:10 07/29/23 05:00 07/29/23 05:00 07/29/23 04:50 07/29/23 04:40 07/29/23 04:30 07/29/23 04:20 07/29/23 04:10 07/29/23 04:00 07/29/23 04:00 07/29/23 03:50 07/29/23 03:40 07/29/23 03:30 07/29/23 03:20 07/29/23 03:13 07/29/23 03:13 07/29/23 03:10 07/29/23 03:00 07/29/23 02:50 07/29/23 02:40 07/29/23 02:30 07/29/23 02:20 07/29/23 02:10 07/29/23 02:00 07/29/23 02:00 07/29/23 01:50 07/29/23 01:40 07/29/23 01:30 07/29/23 01:20 07/29/23 01:10 07/29/23 01:01 07/29/23 01:01 07/29/23 01:00 07/29/23 00:50 07/29/23 00:40 07/29/23 00:30 07/29/23 00:20 07/29/23 00:10 07/29/23 00:00 07/29/23 00:00 07/29/23 00:00 07/28/23 23:50 07/28/23 23:40 07/28/23 23:31 Room Air 07/28/23 23:30 07/28/23 23:20 07/28/23 23:10 07/28/23 23:00 07/28/23 23:00 07/28/23 22:50 07/28/23 22:40 07/28/23 22:40 Room Air 07/28/23 22:37 07/28/23 22:37 07/28/23 22:35 PG Care Time/CCT Total # of Minutes Spent Total Time Spent with Patient: Total time spent is greater than 50% in coordination of care (as documented) at patient's floor/unit and/or counseling patient: Coding Level of Care Code 56860 IN/OBS CONSULT LVL 4,60M Diagnoses Abdominal pain R10.9 Decompensation of cirrhosis of liver K72.90; K74.60 Hyponatremia E87.1 Hypomagnesemia E83.42 Hyperbilirubinemia E80.6 Alcohol dependence F10.20 Alcohol withdrawal F10.939 Abdominal ascites R18.8
[2023-07-29] MEDS: DEXTROSE 5% 1,000 ML IV SCH (09:46)
[2023-07-29] MEDS: THIAMINE HCL 100 MG TAB PO SCH (09:50)
[2023-07-29] MEDS: MULTIVITAMIN TAB PO SCH (09:50)
[2023-07-29] MEDS: LACTULOSE SYRUP 30 GM/45 ML UDP PO SCH (09:50)
[2023-07-29] MEDS: FOLIC ACID 1 MG TAB PO SCH (09:50)
[2023-07-29] MEDS: POTASSIUM CHLORIDE 20 MEQ/15 ML UDC PO STA (09:52)
[2023-07-29] MEDS: PIPER/TAZO 4.5g in D5W MINI-B 100 ML IV ONE (09:55)
[2023-07-29 10:34] LABS: BUN Creatinine Ratio 3.2 (10-20); Calcium 7.2 mg/dl (8.6-10.3); Creatinine Clr Calc Pharmacy 148.1 ml/min; Est GFR (African American) 143.8 ml/min; Est GFR (Non-African American) 124.1 ml/min; Potassium 2.8 mmol/L (3.5-5.1)
--- NOTE | 2023-07-29 10:37 | Critical Care Progress Note ---
Date of Service July 29, 2023 Assessment & Plan (1) Acute hyponatremia: Plan: Reason Critically Ill: 38-year-old male with alcoholic cirrhosis, active alcohol use, presents to the emergency department with acute hyponatremia with sodium of 109, decompensated alcoholic cirrhosis, ascites, and esophageal varices noted on CT. Neuro - Alcohol abusepatient with continued alcohol use. Claiming he drinks 2 twisted teas per day. EtOH 16 on admission and reports last drink yesterday evening. He does have history of alcohol withdrawal seizure on previous admission. -No current symptoms of alcohol withdrawal at this time -Will initiate KENNY S scale -Continue thiamine, multivitamin, folic acid Cardiac - No history of cardiac disease. Currently normotensive in sinus rhythm on monitor. Continuous monitoring on telemetry Respiratory - No history of pulmonary disease. Currently maintaining oxygen saturations on room air without respiratory distress. Continuous monitoring on pulse oximetry. Dyspnea likely from distended abdomen. GI - Decompensated alcoholic hepatitispatient active drinker with current MELD score of 27. He is previously seen by hepatology but failed for follow-up. On previous admission he was uninterested and workup for liver transplant service. He was positive for hepatitis B in December. - CT abdomen and pelvis showing alcoholic cirrhosis with portal hypertension and esophageal varices. - No symptoms of GI bleeding at this time although he did have an elevated INR of 1.7 and was given vitamin K. -Ammonia of 80 without evidence of hepatic encephalopathy. Will start on lactulose regimen -GI consult pending -Patient with tender abdomen. Appreciate general surgery input. No clear signs of peritonitis. Possible infected ascitic fluid. I did an ultrasound to look for a safe pocket for paracentesis, but none was seen. He appears to have loculated fluid around the liver. Will continue with empiric Zosyn at this time. RENAL/LYTES - -hyponatremia likely secondary to beer potomania. Patient has overcorrected. Will give an additional dose of DDAVP and start D5. Check sodium every 4 hours. Will aim for a rise of sodium of 6-8 mEq in the span of 24 hours. Appreciate nephrology input. Replace potassium aggressively. - Strict I's and O's ENDO - No history of diabetes or thyroid disease. ICU hyperglycemic protocol HEME - H&H stable. Thrombocytopenia with platelets 125 likely due to cirrhosis ID - Possible spontaneous bacterial peritonitis. Unable to perform paracentesis given loculated peritoneal fluid. Will empirically treat with Zosyn. LINES/IV ACCESS - Peripheral IVs DVT PROPHYLAXIS - SCDs, hold anticoagulation for elevated INR and esophageal varices I have personally spent 41 minutes of critical care time in the direct management of this patient. This is a life/limb threatening event. This includes time spent evaluating patient, direct bedside care, chart review, placing orders, interpretation of diagnostic studies, discussion with consultants, patient, and family members, as well as other required patient management activities. This time is exclusive of all separately billable procedures, and teaching time and separate from and in addition to any other critical care service time. Thank you for allowing us to participate in the care of this patient. Please refer to my attending physician's documentation for any further recommendations. (2) Decompensation of cirrhosis of liver: (3) Acute hypokalemia: (4) Dizziness: (5) Transaminitis: (6) Hyperbilirubinemia: (7) Alcohol dependence: (8) Hepatitis: (9) Spontaneous bacterial peritonitis: (10) Hypokalemia: Admission and Anticipated Discharge Date Admission Date: July 28, 2023 Subjective Patient complaining of abdominal soreness this morning. Does endorse some mild shortness of breath with minimal exertion. Denies any chest pain. No fevers or chills. Review of Systems Review of Systems: All systems reviewed & are unremarkable except as noted in HPI & below Physical Exam Constitutional: cooperative and comfortable; no acute distress Eyes: PERRL, conjunctivae normal, anicteric sclerae ENMT: external ear and nose normal, oropharynx normal Neck: trachea midline, no thyromegaly Respiratory: normal respiratory effort, lungs clear to auscultation Cardiovascular: Rate/Rhythm: regular rate and regular rhythm Heart Sounds: normal S1 and normal S2 Extremities: no edema Gastrointestinal (Abdomen): Abdomen semifirm, distended, tender. Bowel sounds auscultated all 4 quadrants Musculoskeletal: no cyanosis or clubbing, extremities motor strength 5/5 Skin: Scabs noted in various areas of the body, approximately 2 to 4 cm in diameter, and appear to be healing and noninfectious in appearance Neurologic: PERRL, EOMI, accommodation nl, no face palsy, no dysarthria Psychiatric: Orientation: oriented x 3 Eye Contact: + poor eye contact Affect: + flat affect Results & Data Results & Data Vital Signs (Past 12 Hours) Vital Signs Temp Pulse Pulse Resp BP BP Pulse Ox 07/29/23 07:00 94 H 15 96 07/29/23 06:50 97 H 15 95 07/29/23 06:40 100 H 17 97 07/29/23 06:30 93 H 14 90 07/29/23 06:20 98 H 13 89 L 07/29/23 06:10 115 H 11 L 93 07/29/23 06:00 100/67 07/29/23 06:00 107 H 15 93 07/29/23 05:50 110 H 24 96 07/29/23 05:40 108 H 15 100 07/29/23 05:30 107 H 14 98 07/29/23 05:20 109 H 16 91 07/29/23 05:10 109 H 13 90 07/29/23 05:00 82/63 L 07/29/23 05:00 106 H 12 89 L 07/29/23 04:50 113 H 13 85 L 07/29/23 04:40 107 H 15 86 L 07/29/23 04:30 109 H 16 90 07/29/23 04:20 113 H 13 93 07/29/23 04:10 119 H 20 91 07/29/23 04:00 97/60 L 07/29/23 04:00 107 H 20 92 07/29/23 03:50 98 H 16 92 07/29/23 03:40 100 H 19 91 07/29/23 03:30 98 H 17 93 07/29/23 03:20 99 H 18 95 07/29/23 03:13 95/61 L 07/29/23 03:13 97 H 17 86 L 07/29/23 03:10 97 H 18 96 07/29/23 03:00 101 H 18 96 07/29/23 02:50 101 H 18 96 07/29/23 02:40 99 H 16 97 07/29/23 02:30 99 H 16 98 07/29/23 02:20 101 H 15 98 07/29/23 02:10 101 H 19 98 07/29/23 02:00 98/63 L 07/29/23 02:00 101 H 18 100 07/29/23 01:50 106 H 24 99 07/29/23 01:40 106 H 24 97 07/29/23 01:30 108 H 19 98 07/29/23 01:20 113 H 25 H 96 07/29/23 01:10 116 H 22 98 07/29/23 01:01 139 H 23 99 07/29/23 01:01 114/97 07/29/23 01:00 128 H 22 93 07/29/23 00:50 120 H 26 H 100 07/29/23 00:40 108 H 18 99 07/29/23 00:30 108 H 24 99 07/29/23 00:20 105 H 29 H 100 07/29/23 00:10 103 H 18 100 07/29/23 00:00 94 H 15 95 07/29/23 00:00 99/74 L 07/29/23 00:00 88 07/28/23 23:50 93 H 13 94 07/28/23 23:40 88 14 97 07/28/23 23:31 36.7 C 94 H 16 110/69 96 07/28/23 23:30 92 H 13 95 07/28/23 23:20 94 H 13 100 07/28/23 23:10 111 H 24 94 07/28/23 23:00 85 12 100 07/28/23 23:00 110/69 07/28/23 22:50 87 15 98 07/28/23 22:40 100 H 13 99 07/28/23 22:40 93 H 16 115/79 98 07/28/23 22:37 90 20 07/28/23 22:37 115/79 07/28/23 22:35 92 H 8 L 99 O2 Del Method 07/29/23 07:00 07/29/23 06:50 07/29/23 06:40 07/29/23 06:30 07/29/23 06:20 07/29/23 06:10 07/29/23 06:00 07/29/23 06:00 07/29/23 05:50 07/29/23 05:40 07/29/23 05:30 07/29/23 05:20 07/29/23 05:10 07/29/23 05:00 07/29/23 05:00 07/29/23 04:50 07/29/23 04:40 07/29/23 04:30 07/29/23 04:20 07/29/23 04:10 07/29/23 04:00 07/29/23 04:00 07/29/23 03:50 07/29/23 03:40 07/29/23 03:30 07/29/23 03:20 07/29/23 03:13 07/29/23 03:13 07/29/23 03:10 07/29/23 03:00 07/29/23 02:50 07/29/23 02:40 07/29/23 02:30 07/29/23 02:20 07/29/23 02:10 07/29/23 02:00 07/29/23 02:00 07/29/23 01:50 07/29/23 01:40 07/29/23 01:30 07/29/23 01:20 07/29/23 01:10 07/29/23 01:01 07/29/23 01:01 07/29/23 01:00 07/29/23 00:50 07/29/23 00:40 07/29/23 00:30 07/29/23 00:20 07/29/23 00:10 07/29/23 00:00 07/29/23 00:00 07/29/23 00:00 07/28/23 23:50 07/28/23 23:40 07/28/23 23:31 Room Air 07/28/23 23:30 07/28/23 23:20 07/28/23 23:10 07/28/23 23:00 07/28/23 23:00 07/28/23 22:50 07/28/23 22:40 07/28/23 22:40 Room Air 07/28/23 22:37 07/28/23 22:37 07/28/23 22:35 Coding Level of Care Code 42297 CRITICAL CARE 1ST 30-74M Diagnoses Acute hyponatremia E87.1 Decompensation of cirrhosis of liver K72.90; K74.60 Acute hypokalemia E87.6 Dizziness R42 Transaminitis R74.01 Hyperbilirubinemia E80.6 Alcohol dependence F10.20 Hepatitis K75.9 Spontaneous bacterial peritonitis K65.2 Hypokalemia E87.6
[2023-07-29] MEDS: PANTOprazole 40 MG in SYRINGE DAILY IV SCH (11:20)
--- NOTE | 2023-07-29 11:22 | Gastrointestinal Consultation ---
Date of Consultation July 29, 2023 Assessment & Plan (1) Abdominal ascites: I suspect he does have SBP and he is on appropriate antibiotics for that. Paracentesis can be performed but I don't think I would stop antibiotics at this point if it doesn't show evidence of SBP. His ascites should be addressed once issue with SBP resolves. He may need therapeutic paracentesis but diuretic control is always better. As he has shown problems with hyponatremia I would defer diuretic management to nephrology since they are involved. I am certain he is drinking more than he admits and he will need to stop if he wants to survive. Asked if he would quit drinking and his response was "we will see". Management of problems related to liver disease are impossible if patients decide to continue with alcohol abuse. History of Present Illness Reason for Consultation: ascites Attending Physician: Tianna Santiago MD History of Present Illness 38 year old man with alcoholic liver disease who returns because his abdominal swelling became "incovenient". He tells me he has not seen any physician since he left the hospital in December but claims to have been taking his medications. He has continued with alcohol intake but claims only "1-2 per day". He doesn't elaborate much with his history and does not seem interested in providing much history. He does deny fever and chills. He was positive for Hep B surface antibody last december but all others negative. He refused referral for transplant last December as well. On admit his Na was 109, ammonia 80 and lactic acid levels were high. 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 Hyponatremia Chronic Anemia Thrombocytopenia Alcohol withdrawal Hepatitis Tobacco use Chronic hyponatremia Alcohol use CHI (closed head injury) Surgical History No pertinent past surgical history Family History Other Multiple myeloma Social History Smoking Status: Current every day smoker Tobacco Type: Cigarettes Cigarettes Per Day: 20; Second Hand Exposure: Yes; Do You Dip or Chew Tobacco: No; Hx Alcohol Use: Yes Alcohol type: beer Hx Substance Use: No Preferred Language: [place] Communication Ability: Effective Hearing Ability: Normal 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 Beliefs That Will Affect Care: None marital status: Single Current Living Situation: Alone current occupational status: employed Other Information That Helps Us Care for You: No Feels Safe at Home: Yes Safety Concerns: Feels Safe At This Time Assistive Devices: None Review of Systems Review of Systems: All systems reviewed & are unremarkable except as noted in HPI & below Physical Exam Constitutional: + ill appearing Eyes: sclerae not anicteric Neck: trachea midline, no thyromegaly Respiratory: normal respiratory effort, lungs clear to auscultation Cardiovascular: RRR, no murmur, no edema Gastrointestinal (Abdomen): Inspection/Auscultation: + abdomen distended Percussion/Palpation: + abdomen tender and + abdomen firm Results & Data Vital Signs (Past 12 Hours) Vital Signs Temp Pulse Pulse Resp BP BP Pulse Ox 07/29/23 07:00 94 H 15 96 07/29/23 06:50 97 H 15 95 07/29/23 06:40 100 H 17 97 07/29/23 06:30 93 H 14 90 07/29/23 06:20 98 H 13 89 L 07/29/23 06:10 115 H 11 L 93 07/29/23 06:00 100/67 07/29/23 06:00 107 H 15 93 07/29/23 05:50 110 H 24 96 07/29/23 05:40 108 H 15 100 07/29/23 05:30 107 H 14 98 07/29/23 05:20 109 H 16 91 07/29/23 05:10 109 H 13 90 07/29/23 05:00 82/63 L 07/29/23 05:00 106 H 12 89 L 07/29/23 04:50 113 H 13 85 L 07/29/23 04:40 107 H 15 86 L 07/29/23 04:30 109 H 16 90 07/29/23 04:20 113 H 13 93 07/29/23 04:10 119 H 20 91 07/29/23 04:00 97/60 L 07/29/23 04:00 107 H 20 92 07/29/23 03:50 98 H 16 92 07/29/23 03:40 100 H 19 91 07/29/23 03:30 98 H 17 93 07/29/23 03:20 99 H 18 95 07/29/23 03:13 95/61 L 07/29/23 03:13 97 H 17 86 L 07/29/23 03:10 97 H 18 96 07/29/23 03:00 101 H 18 96 07/29/23 02:50 101 H 18 96 07/29/23 02:40 99 H 16 97 07/29/23 02:30 99 H 16 98 07/29/23 02:20 101 H 15 98 07/29/23 02:10 101 H 19 98 07/29/23 02:00 98/63 L 07/29/23 02:00 101 H 18 100 07/29/23 01:50 106 H 24 99 07/29/23 01:40 106 H 24 97 07/29/23 01:30 108 H 19 98 07/29/23 01:20 113 H 25 H 96 07/29/23 01:10 116 H 22 98 07/29/23 01:01 139 H 23 99 07/29/23 01:01 114/97 07/29/23 01:00 128 H 22 93 07/29/23 00:50 120 H 26 H 100 07/29/23 00:40 108 H 18 99 07/29/23 00:30 108 H 24 99 07/29/23 00:20 105 H 29 H 100 07/29/23 00:10 103 H 18 100 07/29/23 00:00 94 H 15 95 07/29/23 00:00 99/74 L 07/29/23 00:00 88 07/28/23 23:50 93 H 13 94 07/28/23 23:40 88 14 97 07/28/23 23:31 36.7 C 94 H 16 110/69 96 07/28/23 23:30 92 H 13 95 07/28/23 23:20 94 H 13 100 O2 Del Method 07/29/23 07:00 07/29/23 06:50 07/29/23 06:40 07/29/23 06:30 07/29/23 06:20 07/29/23 06:10 07/29/23 06:00 07/29/23 06:00 07/29/23 05:50 07/29/23 05:40 07/29/23 05:30 07/29/23 05:20 07/29/23 05:10 07/29/23 05:00 07/29/23 05:00 07/29/23 04:50 07/29/23 04:40 07/29/23 04:30 07/29/23 04:20 07/29/23 04:10 07/29/23 04:00 07/29/23 04:00 07/29/23 03:50 07/29/23 03:40 07/29/23 03:30 07/29/23 03:20 07/29/23 03:13 07/29/23 03:13 07/29/23 03:10 07/29/23 03:00 07/29/23 02:50 07/29/23 02:40 07/29/23 02:30 07/29/23 02:20 07/29/23 02:10 07/29/23 02:00 07/29/23 02:00 07/29/23 01:50 07/29/23 01:40 07/29/23 01:30 07/29/23 01:20 07/29/23 01:10 07/29/23 01:01 07/29/23 01:01 07/29/23 01:00 07/29/23 00:50 07/29/23 00:40 07/29/23 00:30 07/29/23 00:20 07/29/23 00:10 07/29/23 00:00 07/29/23 00:00 07/29/23 00:00 07/28/23 23:50 07/28/23 23:40 07/28/23 23:31 Room Air 07/28/23 23:30 07/28/23 23:20 Laboratory Results 07/29/23 07/29/23 07/29/23 Range/Units Unknown 09:41 08:10 WBC RBC Hgb Hct MCV MCH MCHC RDW Std Deviation RDW Coeff of Randall Plt Count MPV Immature Gran % (Auto) Neut % (Auto) Lymph % (Auto) [place] % (Auto) Eos % (Auto) Baso % (Auto) Neut # (Auto) Lymph # (Auto) [place] # (Auto) Eos # (Auto) Baso # (Auto) Immature Gran # (Auto) Absolute Nucleated RBC Nucleated RBC % (auto) Neutrophils % (Manual) Band Neutrophils % Lymphocytes % (Manual) Prolymphocyte % Reactive Lymphs % (Man) Monocytes % (Manual) Eosinophils % (Manual) Basophils % (Manual) Metamyelocytes % (Man) Myelocytes % (Man) Promyelocytes % (Man) Blast Cells % (Manual) Plasma Cell % (Manual) Other Cells % Nucleated RBC % Neutrophils # (Manual) Band Neutrophils # Total Absolute Neuts Lymphocytes # (Manual) Prolymphocyte # Reactive Lymphs # Total Abs Lymphocytes Monocytes # (Manual) Eosinophils # (Manual) Basophils # (Manual) Metamyelocytes # (Man) Myelocytes # (Manual) Promyelocytes # (Man) Blast Cells # (Man) Plasma Cell # (Manual) Other Cells # Nucleated RBCs # (Man) Hypersegmented Neuts Hyposegmented Neuts Hypogranular Neuts Large Granular Lymphs # Lrg Granular Lymphs Hairy Cells Smudge Cells Toxic Granulation Toxic Vacuolation Dohle Bodies Michaela Rods Platelet Estimate Hypogranular Platelets Giant Platelets Platelet Satelliting RBC Morphology Polychromasia Hypochromasia Poikilocytosis Basophilic Stippling Anisocytosis Microcytosis Macrocytosis Spherocytes Pappenheimer Bodies Sickle Cells Target Cells Tear Drop Cells Ovalocytes Stomatocytes Pereyra-[place] Bodies Echinocytes Acanthocytes (Spur) Rouleaux RBC Agglutinates Schistocytes Sezary Cell PT (9.0-12.0) Seconds INR (0.9-1.1) Sodium 116 L* 117 L* (136-145) mmol/L Potassium 2.8 L 2.5 L* (3.5-5.1) mmol/L Chloride 75 L 74 L (98-107) mmol/L Carbon Dioxide 35 H 34 H (21-32) mmol/L Anion Gap 6 9 (3-11) BUN 2 L 2 L (6-23) mg/dl Creatinine 0.62 0.61 (0.6-1.4) mg/dl Est Cr Clr Drug Dosing 148.1 150.5 ml/min Est GFR ( Amer) 143.8 144.8 ml/min Est GFR (Non-Af Amer) 124.1 124.9 ml/min BUN/Creatinine Ratio 3.2 L 3.3 L (10-20) Glucose 147 H 123 H (70-99(Fasting)) mg/dl Osmolality (280-300) mOsm/kg Lactate 3.3 H* (0.4-2.0) mmol/L Uric Acid (2.6-7.2) mg/dl Calcium 7.2 L 7.3 L (8.6-10.3) mg/dl Phosphorus (2.5-4.9) mg/dl Magnesium 2.3 (1.7-2.4) mg/dl Total Bilirubin (0.2-1.0) mg/dl AST (13-39) U/L ALT (7-52) U/L Alkaline Phosphatase (34-104) U/L Ammonia (18-72) umol/L Troponin I High Sens (0-20) pg/ml Total Protein (6.0-8.3) gm/dl Albumin (3.4-5.0) gm/dl Globulin (2.5-4.0) gm/dl Albumin/Globulin Ratio (0.9-2) Lipase (11-82) U/L TSH (0.300-4.500) uIu/ml Random Cortisol mcg/dl Urine Color Urine Appearance (Clear) Urine pH (4.5-7.5) Ur Specific [place] (1.000-1.030) Urine Protein (Negative) Urine Glucose (UA) (Negative) Urine Ketones (Negative) Urine Blood (Negative) Urine Nitrite (Negative) Urine Bilirubin (Negative) Urine Urobilinogen (Negative) Ur Leukocyte Esterase (Negative) Urine Osmolality (500-800) mOsm/kg Ur Random Creatinine mg/dl Ur Random Sodium mmol/L Ur Random Uric Acid Ur Random Urea Nitrogn Nasal Screen MRSA (PCR) Negative (Negative) Ethyl Alcohol mg/dL (<10.0) mg/dl Adenovirus (PCR) (NotDetected) B. pertussis DNA (PCR) (NotDetected) B.parapertussis DNA PCR (NotDetected) C. pneumoniae DNA (PCR) (NotDetected) Coronavirus OC43 (PCR) (NotDetected) Coronavirus HKU1 (PCR) (NotDetected) Coronavirus 229E (PCR) (NotDetected) SARS-CoV-2 (PCR) (NotDetected) Coronavirus NL63 (PCR) (NotDetected) Human Metapneumovir PCR (NotDetected) Influenza Type A (PCR) (NotDetected) Influenza Type B (PCR) (NotDetected) M. pneumoniae (PCR) (NotDetected) Parainfluenza 1 (PCR) (NotDetected) Parainfluenza 2 (PCR) (NotDetected) Parainfluenza 3 (PCR) (NotDetected) Parainfluenza 4 (PCR) (NotDetected) RSV (PCR) (NotDetected) Entero/Rhino (PCR) (NotDetected) Blood Parasites ID 07/29/23 07/29/23 07/29/23 Range/Units 05:19 04:00 02:00 WBC 3.40 L RBC 2.50 L Hgb 9.0 L Hct 24.0 L MCV 96.0 MCH 36.0 H MCHC 37.5 H RDW Std Deviation 54.8 H RDW Coeff of Randall 15.9 H Plt Count 110 L MPV 11.0 Immature Gran % (Auto) 0.0 Neut % (Auto) 83.8 Lymph % (Auto) 8.8 [place] % (Auto) 7.4 Eos % (Auto) 0.0 Baso % (Auto) 0.0 Neut # (Auto) 2.85 Lymph # (Auto) 0.30 L [place] # (Auto) 0.25 Eos # (Auto) 0.00 Baso # (Auto) 0.00 Immature Gran # (Auto) 0.00 L Absolute Nucleated RBC Nucleated RBC % (auto) Neutrophils % (Manual) Band Neutrophils % Lymphocytes % (Manual) Prolymphocyte % Reactive Lymphs % (Man) Monocytes % (Manual) Eosinophils % (Manual) Basophils % (Manual) Metamyelocytes % (Man) Myelocytes % (Man) Promyelocytes % (Man) Blast Cells % (Manual) Plasma Cell % (Manual) Other Cells % Nucleated RBC % Neutrophils # (Manual) Band Neutrophils # Total Absolute Neuts Lymphocytes # (Manual) Prolymphocyte # Reactive Lymphs # Total Abs Lymphocytes Monocytes # (Manual) Eosinophils # (Manual) Basophils # (Manual) Metamyelocytes # (Man) Myelocytes # (Manual) Promyelocytes # (Man) Blast Cells # (Man) Plasma Cell # (Manual) Other Cells # Nucleated RBCs # (Man) Hypersegmented Neuts Hyposegmented Neuts Hypogranular Neuts Large Granular Lymphs # Lrg Granular Lymphs Hairy Cells Smudge Cells Toxic Granulation Toxic Vacuolation Dohle Bodies Michaela Rods Platelet Estimate Hypogranular Platelets Giant Platelets Platelet Satelliting RBC Morphology Polychromasia 2+ Hypochromasia Poikilocytosis Basophilic Stippling 1+ Anisocytosis Microcytosis Macrocytosis Spherocytes Pappenheimer Bodies 1+ Sickle Cells Target Cells 3+ Tear Drop Cells Ovalocytes Stomatocytes Pereyra-[place] Bodies Echinocytes Acanthocytes (Spur) Rouleaux RBC Agglutinates Schistocytes Sezary Cell PT 17.4 H Cancelled (9.0-12.0) Seconds INR 1.6 H Cancelled (0.9-1.1) Sodium 117 L* (136-145) mmol/L Potassium 2.4 L* (3.5-5.1) mmol/L Chloride 74 L (98-107) mmol/L Carbon Dioxide 35 H (21-32) mmol/L Anion Gap 8 (3-11) BUN 2 L (6-23) mg/dl Creatinine 0.57 L (0.6-1.4) mg/dl Est Cr Clr Drug Dosing 161.1 ml/min Est GFR ( Amer) 148.9 ml/min Est GFR (Non-Af Amer) 128.4 ml/min BUN/Creatinine Ratio 3.5 L (10-20) Glucose 86 (70-99(Fasting)) mg/dl Osmolality (280-300) mOsm/kg Lactate 4.1 H* (0.4-2.0) mmol/L Uric Acid (2.6-7.2) mg/dl Calcium 7.1 L (8.6-10.3) mg/dl Phosphorus (2.5-4.9) mg/dl Magnesium 1.8 (1.7-2.4) mg/dl Total Bilirubin 4.3 H (0.2-1.0) mg/dl AST 98 H (13-39) U/L ALT 37 (7-52) U/L Alkaline Phosphatase 367 H (34-104) U/L Ammonia (18-72) umol/L Troponin I High Sens (0-20) pg/ml Total Protein 5.0 L D (6.0-8.3) gm/dl Albumin 2.6 L (3.4-5.0) gm/dl Globulin 2.4 L (2.5-4.0) gm/dl Albumin/Globulin Ratio 1.1 (0.9-2) Lipase (11-82) U/L TSH (0.300-4.500) uIu/ml Random Cortisol mcg/dl Urine Color Urine Appearance (Clear) Urine pH (4.5-7.5) Ur Specific [place] (1.000-1.030) Urine Protein (Negative) Urine Glucose (UA) (Negative) Urine Ketones (Negative) Urine Blood (Negative) Urine Nitrite (Negative) Urine Bilirubin (Negative) Urine Urobilinogen (Negative) Ur Leukocyte Esterase (Negative) Urine Osmolality (500-800) mOsm/kg Ur Random Creatinine mg/dl Ur Random Sodium mmol/L Ur Random Uric Acid Ur Random Urea Nitrogn Nasal Screen MRSA (PCR) (Negative) Ethyl Alcohol mg/dL (<10.0) mg/dl Adenovirus (PCR) Not Detected (NotDetected) B. pertussis DNA (PCR) Not Detected (NotDetected) B.parapertussis DNA PCR Not Detected (NotDetected) C. pneumoniae DNA (PCR) Not Detected (NotDetected) Coronavirus OC43 (PCR) Not Detected (NotDetected) Coronavirus HKU1 (PCR) Not Detected (NotDetected) Coronavirus 229E (PCR) Not Detected (NotDetected) SARS-CoV-2 (PCR) Not Detected (NotDetected) Coronavirus NL63 (PCR) Not Detected (NotDetected) Human Metapneumovir PCR Not Detected (NotDetected) Influenza Type A (PCR) Not Detected (NotDetected) Influenza Type B (PCR) Not Detected (NotDetected) M. pneumoniae (PCR) Not Detected (NotDetected) Parainfluenza 1 (PCR) Not Detected (NotDetected) Parainfluenza 2 (PCR) Not Detected (NotDetected) Parainfluenza 3 (PCR) Not Detected (NotDetected) Parainfluenza 4 (PCR) Not Detected (NotDetected) RSV (PCR) Not Detected (NotDetected) Entero/Rhino (PCR) Not Detected (NotDetected) Blood Parasites ID 07/29/23 07/28/23 07/28/23 Range/Units 00:31 22:56 20:32 WBC 6.45 RBC 2.60 L Hgb 9.5 L Hct 25.5 L MCV 98.1 MCH 36.5 H MCHC 37.3 H RDW Std Deviation 53.3 H RDW Coeff of Randall 15.1 H Plt Count 125 L MPV 10.5 Immature Gran % (Auto) 0.8 Neut % (Auto) 80.6 Lymph % (Auto) 12.4 [place] % (Auto) 6.2 Eos % (Auto) 0.0 Baso % (Auto) 0.0 Neut # (Auto) 5.20 Lymph # (Auto) 0.80 L [place] # (Auto) 0.40 Eos # (Auto) 0.00 Baso # (Auto) 0.00 Immature Gran # (Auto) 0.05 Absolute Nucleated RBC Nucleated RBC % (auto) Neutrophils % (Manual) Band Neutrophils % Lymphocytes % (Manual) Prolymphocyte % Reactive Lymphs % (Man) Monocytes % (Manual) Eosinophils % (Manual) Basophils % (Manual) Metamyelocytes % (Man) Myelocytes % (Man) Promyelocytes % (Man) Blast Cells % (Manual) Plasma Cell % (Manual) Other Cells % Nucleated RBC % Neutrophils # (Manual) Band Neutrophils # Total Absolute Neuts Lymphocytes # (Manual) Prolymphocyte # Reactive Lymphs # Total Abs Lymphocytes Monocytes # (Manual) Eosinophils # (Manual) Basophils # (Manual) Metamyelocytes # (Man) Myelocytes # (Manual) Promyelocytes # (Man) Blast Cells # (Man) Plasma Cell # (Manual) Other Cells # Nucleated RBCs # (Man) Hypersegmented Neuts Hyposegmented Neuts Hypogranular Neuts Large Granular Lymphs # Lrg Granular Lymphs Hairy Cells Smudge Cells Toxic Granulation Toxic Vacuolation Dohle Bodies Michaela Rods Platelet Estimate Hypogranular Platelets Giant Platelets Platelet Satelliting RBC Morphology Polychromasia Hypochromasia Poikilocytosis Basophilic Stippling Anisocytosis Microcytosis Macrocytosis Spherocytes Pappenheimer Bodies Sickle Cells Target Cells Tear Drop Cells Ovalocytes Stomatocytes Pereyra-[place] Bodies Echinocytes Acanthocytes (Spur) Rouleaux RBC Agglutinates Schistocytes Sezary Cell PT (9.0-12.0) Seconds INR (0.9-1.1) Sodium 119 L* D TNP (136-145) mmol/L Potassium (3.5-5.1) mmol/L Chloride (98-107) mmol/L Carbon Dioxide (21-32) mmol/L Anion Gap (3-11) BUN (6-23) mg/dl Creatinine (0.6-1.4) mg/dl Est Cr Clr Drug Dosing ml/min Est GFR ( Amer) ml/min Est GFR (Non-Af Amer) ml/min BUN/Creatinine Ratio (10-20) Glucose (70-99(Fasting)) mg/dl Osmolality (280-300) mOsm/kg Lactate 4.0 H* (0.4-2.0) mmol/L Uric Acid (2.6-7.2) mg/dl Calcium (8.6-10.3) mg/dl Phosphorus (2.5-4.9) mg/dl Magnesium (1.7-2.4) mg/dl Total Bilirubin (0.2-1.0) mg/dl AST (13-39) U/L ALT (7-52) U/L Alkaline Phosphatase (34-104) U/L Ammonia (18-72) umol/L Troponin I High Sens 20.1 H (0-20) pg/ml Total Protein (6.0-8.3) gm/dl Albumin (3.4-5.0) gm/dl Globulin (2.5-4.0) gm/dl Albumin/Globulin Ratio (0.9-2) Lipase (11-82) U/L TSH (0.300-4.500) uIu/ml Random Cortisol mcg/dl Urine Color Urine Appearance (Clear) Urine pH (4.5-7.5) Ur Specific [place] (1.000-1.030) Urine Protein (Negative) Urine Glucose (UA) (Negative) Urine Ketones (Negative) Urine Blood (Negative) Urine Nitrite (Negative) Urine Bilirubin (Negative) Urine Urobilinogen (Negative) Ur Leukocyte Esterase (Negative) Urine Osmolality (500-800) mOsm/kg Ur Random Creatinine mg/dl Ur Random Sodium mmol/L Ur Random Uric Acid Ur Random Urea Nitrogn Nasal Screen MRSA (PCR) (Negative) Ethyl Alcohol mg/dL (<10.0) mg/dl Adenovirus (PCR) (NotDetected) B. pertussis DNA (PCR) (NotDetected) B.parapertussis DNA PCR (NotDetected) C. pneumoniae DNA (PCR) (NotDetected) Coronavirus OC43 (PCR) (NotDetected) Coronavirus HKU1 (PCR) (NotDetected) Coronavirus 229E (PCR) (NotDetected) SARS-CoV-2 (PCR) (NotDetected) Coronavirus NL63 (PCR) (NotDetected) Human Metapneumovir PCR (NotDetected) Influenza Type A (PCR) (NotDetected) Influenza Type B (PCR) (NotDetected) M. pneumoniae (PCR) (NotDetected) Parainfluenza 1 (PCR) (NotDetected) Parainfluenza 2 (PCR) (NotDetected) Parainfluenza 3 (PCR) (NotDetected) Parainfluenza 4 (PCR) (NotDetected) RSV (PCR) (NotDetected) Entero/Rhino (PCR) (NotDetected) Blood Parasites ID 07/28/23 07/28/23 07/28/23 Range/Units 20:05 18:22 18:05 WBC Cancelled RBC Cancelled Hgb Cancelled Hct Cancelled MCV Cancelled MCH Cancelled MCHC Cancelled RDW Std Deviation Cancelled RDW Coeff of Randall Cancelled Plt Count Cancelled MPV Cancelled Immature Gran % (Auto) Cancelled Neut % (Auto) Cancelled Lymph % (Auto) Cancelled [place] % (Auto) Cancelled Eos % (Auto) Cancelled Baso % (Auto) Cancelled Neut # (Auto) Cancelled Lymph # (Auto) Cancelled [place] # (Auto) Cancelled Eos # (Auto) Cancelled Baso # (Auto) Cancelled Immature Gran # (Auto) Cancelled Absolute Nucleated RBC Cancelled Nucleated RBC % (auto) Cancelled Neutrophils % (Manual) Cancelled Band Neutrophils % Cancelled Lymphocytes % (Manual) Cancelled Prolymphocyte % Cancelled Reactive Lymphs % (Man) Cancelled Monocytes % (Manual) Cancelled Eosinophils % (Manual) Cancelled Basophils % (Manual) Cancelled Metamyelocytes % (Man) Cancelled Myelocytes % (Man) Cancelled Promyelocytes % (Man) Cancelled Blast Cells % (Manual) Cancelled Plasma Cell % (Manual) Cancelled Other Cells % Cancelled Nucleated RBC % Cancelled Neutrophils # (Manual) Cancelled Band Neutrophils # Cancelled Total Absolute Neuts Cancelled Lymphocytes # (Manual) Cancelled Prolymphocyte # Cancelled Reactive Lymphs # Cancelled Total Abs Lymphocytes Cancelled Monocytes # (Manual) Cancelled Eosinophils # (Manual) Cancelled Basophils # (Manual) Cancelled Metamyelocytes # (Man) Cancelled Myelocytes # (Manual) Cancelled Promyelocytes # (Man) Cancelled Blast Cells # (Man) Cancelled Plasma Cell # (Manual) Cancelled Other Cells # Cancelled Nucleated RBCs # (Man) Cancelled Hypersegmented Neuts Cancelled Hyposegmented Neuts Cancelled Hypogranular Neuts Cancelled Large Granular Lymphs Cancelled # Lrg Granular Lymphs Cancelled Hairy Cells Cancelled Smudge Cells Cancelled Toxic Granulation Cancelled Toxic Vacuolation Cancelled Dohle Bodies Cancelled Michaela Rods Cancelled Platelet Estimate Cancelled Hypogranular Platelets Cancelled Giant Platelets Cancelled Platelet Satelliting Cancelled RBC Morphology Cancelled Polychromasia Cancelled Hypochromasia Cancelled Poikilocytosis Cancelled Basophilic Stippling Cancelled Anisocytosis Cancelled Microcytosis Cancelled Macrocytosis Cancelled Spherocytes Cancelled Pappenheimer Bodies Cancelled Sickle Cells Cancelled Target Cells Cancelled Tear Drop Cells Cancelled Ovalocytes Cancelled Stomatocytes Cancelled Pereyra-[place] Bodies Cancelled Echinocytes Cancelled Acanthocytes (Spur) Cancelled Rouleaux Cancelled RBC Agglutinates Cancelled Schistocytes Cancelled Sezary Cell Cancelled PT 17.7 H (9.0-12.0) Seconds INR 1.7 H (0.9-1.1) Sodium 109 L* (136-145) mmol/L Potassium 2.2 L* (3.5-5.1) mmol/L Chloride 63 L (98-107) mmol/L Carbon Dioxide 34 H (21-32) mmol/L Anion Gap 12 H (3-11) BUN 2 L (6-23) mg/dl Creatinine 0.62 (0.6-1.4) mg/dl Est Cr Clr Drug Dosing 148.1 ml/min Est GFR ( Amer) 143.8 ml/min Est GFR (Non-Af Amer) 124.1 ml/min BUN/Creatinine Ratio 3.2 L (10-20) Glucose 160 H (70-99(Fasting)) mg/dl Osmolality 224 L* (280-300) mOsm/kg Lactate (0.4-2.0) mmol/L Uric Acid 4.1 (2.6-7.2) mg/dl Calcium 7.2 L (8.6-10.3) mg/dl Phosphorus 2.9 (2.5-4.9) mg/dl Magnesium 1.3 L (1.7-2.4) mg/dl Total Bilirubin 5.3 H (0.2-1.0) mg/dl AST 143 H (13-39) U/L ALT 51 (7-52) U/L Alkaline Phosphatase 532 H (34-104) U/L Ammonia 81.0 H (18-72) umol/L Troponin I High Sens 21.7 H (0-20) pg/ml Total Protein 6.0 (6.0-8.3) gm/dl Albumin 2.8 L (3.4-5.0) gm/dl Globulin 3.2 (2.5-4.0) gm/dl Albumin/Globulin Ratio 0.9 (0.9-2) Lipase 21 (11-82) U/L TSH 0.361 (0.300-4.500) uIu/ml Random Cortisol 23.91 mcg/dl Urine Color Yellow Urine Appearance Clear (Clear) Urine pH 7.5 (4.5-7.5) Ur Specific [place] 1.008 (1.000-1.030) Urine Protein Negative (Negative) Urine Glucose (UA) Negative (Negative) Urine Ketones Negative (Negative) Urine Blood Negative (Negative) Urine Nitrite Negative (Negative) Urine Bilirubin Negative (Negative) Urine Urobilinogen Negative (Negative) Ur Leukocyte Esterase Negative (Negative) Urine Osmolality 82 L (500-800) mOsm/kg Ur Random Creatinine 12.9 mg/dl Ur Random Sodium 20 mmol/L Ur Random Uric Acid Pending Ur Random Urea Nitrogn Pending Nasal Screen MRSA (PCR) (Negative) Ethyl Alcohol mg/dL 16.1 H (<10.0) mg/dl Adenovirus (PCR) (NotDetected) B. pertussis DNA (PCR) (NotDetected) B.parapertussis DNA PCR (NotDetected) C. pneumoniae DNA (PCR) (NotDetected) Coronavirus OC43 (PCR) (NotDetected) Coronavirus HKU1 (PCR) (NotDetected) Coronavirus 229E (PCR) (NotDetected) SARS-CoV-2 (PCR) (NotDetected) Coronavirus NL63 (PCR) (NotDetected) Human Metapneumovir PCR (NotDetected) Influenza Type A (PCR) (NotDetected) Influenza Type B (PCR) (NotDetected) M. pneumoniae (PCR) (NotDetected) Parainfluenza 1 (PCR) (NotDetected) Parainfluenza 2 (PCR) (NotDetected) Parainfluenza 3 (PCR) (NotDetected) Parainfluenza 4 (PCR) (NotDetected) RSV (PCR) (NotDetected) Entero/Rhino (PCR) (NotDetected) Blood Parasites ID Cancelled Diagnostic Findings Abdomen/Pelvis CT 07/28/23 18:26 Exam(s): CT ABDOMEN + PELVIS With Contrast IV Amt: 89ML OPTIRAY 320 EXAM: CT Abdomen and Pelvis With Intravenous Contrast CLINICAL HISTORY: Reason for exam: generalized abdominal pain and distension. TECHNIQUE: Axial computed tomography images of the abdomen and pelvis with intravenous contrast. CTDI is 18.4 mGy and DLP is 953.35 mGy-cm. Automated exposure control was utilized for the study. A dose lowering technique was utilized adhering to the principles of ALARA. CONTRAST: Patient received 89ML OPTIRAY 320 of IV contrast COMPARISON: CT abdomen and pelvis 12/23/2022. FINDINGS: Lung bases: Unremarkable. No mass. No consolidation. ABDOMEN: Liver: Cirrhotic morphology of the liver with evidence of portal hypertension including esophageal varices. Gallbladder and bile ducts: Wall thickening of the gallbladder is likely reactive. No calcified stones. No ductal dilation. Pancreas: Unremarkable. No mass. No ductal dilation. Spleen: Unremarkable. No splenomegaly. Adrenals: Unremarkable. No mass. Kidneys and ureters: Unremarkable. No solid mass. No hydronephrosis. Stomach and bowel: Wall thickening of the small bowel and colon may be reactive. No obstruction. PELVIS: Appendix: Appendix is not visualized. Bladder: Unremarkable. No mass. Reproductive: Unremarkable as visualized. ABDOMEN and PELVIS: Intraperitoneal space: Mild to moderate ascites. No free air. Bones/joints: Sclerotic calcifications of the abdominal aorta and branches. A generative change in spine. No dislocation. No significant interval change in appearance of superior endplate fractures of T8, T9, and T11 vertebral bodies. Soft tissues: Unremarkable. Vasculature: Esophageal varices. Lymph nodes: Unremarkable. No enlarged lymph nodes. IMPRESSION: 1. Cirrhotic morphology of the liver with evidence of portal hypertension including esophageal varices. 2. Mild to moderate ascites. 3. Wall thickening of the small bowel and colon may be reactive. Enterocolitis cannot be excluded. Clinical correlation is recommended. Electronically signed by: Quentin Yang MD 07/28/23 20:35 PM Chest X-Ray 07/28/23 20:19 SINGLE VIEW CHEST CLINICAL HISTORY: Hyponatremia FINDINGS: An AP, portable, upright chest radiograph is compared to study dated 12/24/2022. The examination is degraded by portable technique and patient rotation. The cardiomediastinal silhouette is unremarkable. There is mild bibasilar scarring/atelectasis. Question mild airspace opacities in the right upper lobe. No large pleural effusion is identified. No pneumothorax is seen. The bony thorax is grossly intact. IMPRESSION: Question mild airspace opacities in the right upper lobe. Correlate clinically for evidence of a mild pneumonitis. Radiographic follow-up to resolution is recommended. ACT 112: Negative or not required by law. Electronically signed by: Will Townsend M.D. 07/28/2023 9:07 PM
--- NOTE | 2023-07-29 14:31 | Hospitalist Progress Note ---
Date of Service July 29, 2023 Assessment & Plan (1) Acute hyponatremia: Plan: 38-year-old male with PMH of alcoholic cirrhosis, alcohol withdrawal seizure, SAH, intracranial aneurysm, chronic hyponatremia, emphysema, ongoing alcohol/tobacco abuse, chronic anemia [baseline hemoglobin 9-11], MEDICAL NONCOMPLIANCE came in with complaint of increasing abdominal distention for about 2 weeks. He also states that he ran out of water pills. Of note, patient was admitted in December 2022 for abdominal ascites, decompensated liver cirrhosis, hyponatremia. He has not made any follow-up with PCP and specialist since discharge. Patient has not been answering phone calls from social welfare clerk. He is being managed for the following: [facility] [place] info: Admitting UA, viral panel, MRSA negative. Aggressive TSH and random cortisol WNL. Acute on chronic hyponatremia Severe hyponatremia Baseline sodium level appears to be around high 120s to low 130s Admitting sodium level of 109. Urine osmolality 82, urine random sodium 20. Serum osmolality 224. Likely secondary to beer potomania, decompensated liver disease, poor solute intake. Received hypertonic saline in the ED, slightly overcorrected in day 1 and received desmopressin in ICU. BMP every 4, monitor and replete electrolytes, patient being managed in ICU. Getting D5W. Nephrology on board, appreciate recommendation. No hypertonic saline or albumin or Lasix for now. Okay with fluid restriction. Increase p.o. intake, increase protein content in diet. Other electrolyte abnormalities: Monitor and replete. History of alcoholic cirrhosis Alcohol abuse and dependence: reports last drink 2/8 evening. AWSS protocol. Thiamine and folic acid. Concern for SBP Recurrent ascites secondary to decompensated cirrhosis, medication noncompliance Patient coming in with abdominal distention, missed water pill due to running out of it. CTAP suggestive of alcoholic cirrhosis with portal hypertension and esophageal varices. NH3 80, no evidence of hepatic encephalopathy. The patient is started on lactulose. GI evaluated, agrees with antibiotic. Currently on zosyn. Patient is to follow-up with GI upon discharge. He needs to quit drinking completely. Consideration of paracentesis after SBP results per GI. Diuresis will be determined as sodium level improves, will await nephrology recommendation. Other chronic medical conditions: Continue with/resume home meds as and when able SAH, intracranial aneurysm emphysema as per records, symptoms at baseline chronic anemia, hemoglobin at baseline ongoing alcohol/ tobacco abuse: Cessation encouraged and highly recommended. Nicotine patch as needed. DVT prophylaxis. SCDs Re: history SAH Full code Text document was generated using [employer] voice recognition software. It may contain grammatical or spelling errors. Kindly contact undersigned for clarification of any documentation item in question. Admission and Anticipated Discharge Date Admission Date: July 28, 2023 Subjective Patient was seen and examined at bedside. Patient was lying in bed, on room air, resting comfortably, sleeping, woke up transiently for bedside exam. Oral mucosa moist, some abdominal tenderness on palpation noted, patient declines any pain in the chest or head. ROS not able in detail as patient fell back to sleep. Has been afebrile overnight. Physical Exam Physical Exam: GENERAL: chronically ill, looks older than stated age, flat affect, no respiratory distress SKIN: jaundiced, warm HEENT: Pale palpebral conjunctivae, no ptosis, moist buccal mucosa NECK : Supple, no tenderness CHEST : Decreased breath sounds, no tenderness HEART : Tachycardic, no obvious murmurs ABDOMEN: Marked distention, +tender EXTREMITIES : Minimal LE swelling/tenderness, no other conspicuous deformities noted NEUROLOGIC : coherent, no facial asymmetry, no other gross focality Skin: tatoos and scabs at multiple areas of body. Appears non infectious superficial wound and scabs Results & Data Results & Data Vital Signs (Past 12 Hours) Vital Signs Pulse Resp BP Pulse Ox 07/29/23 13:00 123 H 21 98 07/29/23 13:00 122/72 07/29/23 12:00 94/64 L 07/29/23 12:00 88 13 99 07/29/23 11:00 99 H 15 99 07/29/23 11:00 97/63 L 07/29/23 10:00 97/60 L 07/29/23 10:00 87 11 L 98 07/29/23 09:07 90/56 L 07/29/23 09:07 92 H 15 95 07/29/23 09:00 93 H 20 63 L 07/29/23 09:00 78/45 L 07/29/23 08:01 104/67 07/29/23 08:01 112 H 14 93 07/29/23 08:00 106 H 16 92 07/29/23 07:53 112/80 07/29/23 07:53 114 H 13 97 07/29/23 07:00 94 H 15 96 07/29/23 06:50 97 H 15 95 07/29/23 06:40 100 H 17 97 07/29/23 06:30 93 H 14 90 07/29/23 06:20 98 H 13 89 L 07/29/23 06:10 115 H 11 L 93 07/29/23 06:00 100/67 07/29/23 06:00 107 H 15 93 07/29/23 05:50 110 H 24 96 07/29/23 05:40 108 H 15 100 07/29/23 05:30 107 H 14 98 07/29/23 05:20 109 H 16 91 07/29/23 05:10 109 H 13 90 07/29/23 05:00 82/63 L 07/29/23 05:00 106 H 12 89 L 07/29/23 04:50 113 H 13 85 L 07/29/23 04:40 107 H 15 86 L 07/29/23 04:30 109 H 16 90 07/29/23 04:20 113 H 13 93 07/29/23 04:10 119 H 20 91 07/29/23 04:00 97/60 L 07/29/23 04:00 107 H 20 92 07/29/23 03:50 98 H 16 92 07/29/23 03:40 100 H 19 91 07/29/23 03:30 98 H 17 93 07/29/23 03:20 99 H 18 95 07/29/23 03:13 95/61 L 07/29/23 03:13 97 H 17 86 L 07/29/23 03:10 97 H 18 96 07/29/23 03:00 101 H 18 96 07/29/23 02:50 101 H 18 96 07/29/23 02:40 99 H 16 97 07/29/23 02:30 99 H 16 98 07/29/23 02:20 101 H 15 98
[2023-07-29 14:48] LABS: BUN Creatinine Ratio 3.2 (10-20); Calcium 7.4 mg/dl (8.6-10.3); Creatinine Clr Calc Pharmacy 145.7 ml/min; Est GFR (African American) 142.9 ml/min; Est GFR (Non-African American) 123.3 ml/min; Potassium 3.5 mmol/L (3.5-5.1)
[2023-07-29] MEDS: PIPER/TAZO 4.5g in D5W MINI-B 100 ML IV SCH (14:49)
[2023-07-29] MEDS ORDERED: STAT IV/IM STA (16:15)
[2023-07-29 16:36] LABS: Albumin Level 2.7 gm/dl (3.4-5.0); Bilirubin Direct 2.7 mg/dl (0-0.2); Bilirubin,Total 4.5 mg/dl (0.2-1.0); Total Protein 5.2 gm/dl (6.0-8.3)
[2023-07-29] MEDS: ALBUMIN 25% 25 GM/100 ML VIAL IV SCH (16:49)
[2023-07-29] MEDS: CALCIUM GLUCONATE 10% 1,000 MG in SODIUM CHLOR 0.9% MINI-B 50 ML IV SCH (16:49)
[2023-07-29 17:17] LABS: Appearance Urine Clear (Clear); Bacteria Urine Automated Negative (Negative); Blood Urine 2+ (Negative); Color Urine Dark Yellow; Glucose Urine UA Negative (Negative); Ketones Urine Trace (Negative); Leukocyte Esterase Urine Negative (Negative); Nitrite Urine Negative (Negative); Protein Urine Negative (Negative); Specific Gravity Urine 1.032 (1.000-1.030); Urobilinogen Urine Negative (Negative); pH Urine 6.5 (4.5-7.5)
[2023-07-29 17:21] LABS: Bilirubin Urine 1+ (Negative)
[2023-07-29 17:25] LABS: Urine Chloride < 15 mmol/L; Urine Potassium 107.8 mmol/L; Urine Sodium < 10 mmol/L
[2023-07-29 17:56] LABS: Anion Gap 10 (3-11); Blood Urea Nitrogen < 2 mg/dl (6-23); Calcium 7.6 mg/dl (8.6-10.3); Carbon Dioxide 28 mmol/L (21-32); Chloride 76 mmol/L (98-107); Creatinine Clr Calc Pharmacy 158.3 ml/min; Est GFR (African American) 147.8 ml/min; Est GFR (Non-African American) 127.5 ml/min; Glucose 125 mg/dl (70-99(Fasting)); Potassium 3.6 mmol/L (3.5-5.1); Sodium 114 mmol/L (136-145)
[2023-07-29] MEDS: ACETAMINOPHEN 500 MG TAB PO PRN (21:15)
[2023-07-29] MEDS: NICOTINE 14 MG/24 HR PATCH TD SCH (21:43)
[2023-07-29] MEDS ORDERED: Nursing to Pharmacy Communication SCH (21:45)
[2023-07-29 22:21] LABS: Anion Gap 7 (3-11); Blood Urea Nitrogen < 2 mg/dl (6-23); Carbon Dioxide 31 mmol/L (21-32); Chloride 77 mmol/L (98-107); Creatinine Clr Calc Pharmacy 166.9 ml/min; Est GFR (African American) > 150.0 ml/min; Est GFR (Non-African American) 130.3 ml/min; Glucose 100 mg/dl (70-99(Fasting)); Potassium 3.6 mmol/L (3.5-5.1); Sodium 115 mmol/L (136-145)
[2023-07-29] MEDS: LORazepam 1 MG in SYRINGE 0.5 ML IV PRN (22:46)
[2023-07-30 01:37] LABS: Anion Gap 7 (3-11); Blood Urea Nitrogen < 2 mg/dl (6-23); Carbon Dioxide 31 mmol/L (21-32); Chloride 77 mmol/L (98-107); Creatinine Clr Calc Pharmacy 155.6 ml/min; Est GFR (African American) 146.8 ml/min; Est GFR (Non-African American) 126.6 ml/min; Glucose 107 mg/dl (70-99(Fasting)); Potassium 3.5 mmol/L (3.5-5.1); Sodium 115 mmol/L (136-145)
[2023-07-30] MEDS: PROMETHAZINE HCL 6.25 MG in SODIUM CHLORIDE 0.9% 50 ML IV PRN (01:44)
[2023-07-30] MEDS: POTASSIUM CHLORIDE CRTAB 20 MEQ TABCR PO STA ×2 (04:33→06:10)
[2023-07-30 05:34] LABS: Anion Gap 9 (3-11); Blood Urea Nitrogen < 2 mg/dl (6-23); Calcium 8.1 mg/dl (8.6-10.3); Carbon Dioxide 30 mmol/L (21-32); Chloride 76 mmol/L (98-107); Creatinine Clr Calc Pharmacy 163.9 ml/min; Est GFR (Non-African American) 129.4 ml/min; Glucose 103 mg/dl (70-99(Fasting)); Potassium 3.2 mmol/L (3.5-5.1); Sodium 115 mmol/L (136-145)
[2023-07-30] MEDS: SPIRONOLACTONE 25 MG TAB PO SCH (09:48)
[2023-07-30] MEDS: TORSEMIDE 10 MG TAB PO SCH (09:49)
--- NOTE | 2023-07-30 10:09 | Critical Care Progress Note ---
Date of Service July 30, 2023 Assessment & Plan (1) Acute hyponatremia: Plan: Reason Critically Ill: 38-year-old male with alcoholic cirrhosis, active alcohol use, presents to the emergency department with acute hyponatremia with sodium of 109, decompensated alcoholic cirrhosis, ascites, and esophageal varices noted on CT. Neuro - Alcohol abusepatient with continued alcohol use. Claiming he drinks 2 twisted teas per day. EtOH 16 on admission and reports last drink yesterday evening. He does have history of alcohol withdrawal seizure on previous admission. -No current symptoms of alcohol withdrawal at this time -Will continue KENNY S scale -Continue thiamine, multivitamin, folic acid Cardiac - No history of cardiac disease. Currently normotensive in sinus rhythm on monitor. Continuous monitoring on telemetry Respiratory - No history of pulmonary disease. Currently maintaining oxygen saturations on room air without respiratory distress. Continuous monitoring on pulse oximetry. Dyspnea likely from distended abdomen. GI - Decompensated alcoholic hepatitispatient active drinker with current MELD score of 27. He is previously seen by hepatology but failed for follow-up. On previous admission he was uninterested and workup for liver transplant service. He was positive for hepatitis B in December. - CT abdomen and pelvis showing alcoholic cirrhosis with portal hypertension and esophageal varices. - No symptoms of GI bleeding at this time although he did have an elevated INR of 1.7 and was given vitamin K. -Continue lactulose -GI consult noted -Patient with tender abdomen. Appreciate general surgery input. No clear signs of peritonitis. Possible infected ascitic fluid. I did an ultrasound to look for a safe pocket for paracentesis, but none was seen. He appears to have loculated fluid around the liver. Will continue with empiric Zosyn at this time. -Transaminitis appears to have stabilized. T. bili 4.5. -Will discontinue albumin at this time as he is hemodynamically stable with normal renal function. RENAL/LYTES - -hyponatremia likely secondary to beer potomania. Continue sodium checks every 4 hours. Repeat sodium is pending and latest sodium was 115. Spironolactone and torsemide started per nephrology recommendations. - Strict I's and O's ENDO - No history of diabetes or thyroid disease. ICU hyperglycemic protocol HEME - H&H stable. Thrombocytopenia with platelets 110 likely due to cirrhosis. INR 1.6 on 07/29/2023. Repeat INR. ID - Possible spontaneous bacterial peritonitis. Unable to perform paracentesis given loculated peritoneal fluid. Will empirically treat with Zosyn. Will ask radiology to perform an ultrasound-guided paracentesis. LINES/IV ACCESS - Peripheral IVs DVT PROPHYLAXIS - SCDs, hold anticoagulation for elevated INR and esophageal varices Patient stable for downgrade out of the ICU at this time. ICU services to sign off. Thank you for the consult. Please call with questions. (2) Decompensation of cirrhosis of liver: (3) Acute hypokalemia: (4) Dizziness: (5) Transaminitis: (6) Hyperbilirubinemia: (7) Alcohol dependence: (8) Hepatitis: (9) Spontaneous bacterial peritonitis: (10) Hypokalemia: Admission and Anticipated Discharge Date Admission Date: July 28, 2023 Subjective Patient seen and examined. Saturating well on room air. Patient notes he needs to have a bowel movement today. No significant events overnight. Review of Systems Review of Systems: All systems reviewed & are unremarkable except as noted in HPI & below Physical Exam Constitutional: cooperative and comfortable; no acute distress Eyes: PERRL, conjunctivae normal, anicteric sclerae ENMT: external ear and nose normal, oropharynx normal Neck: trachea midline, no thyromegaly Respiratory: normal respiratory effort, lungs clear to auscultation Cardiovascular: Rate/Rhythm: regular rate and regular rhythm Heart Sounds: normal S1 and normal S2 Extremities: no edema Gastrointestinal (Abdomen): Abdomen semifirm, distended, tender. Bowel sounds auscultated all 4 quadrants Musculoskeletal: no cyanosis or clubbing, extremities motor strength 5/5 Skin: Scabs noted in various areas of the body, approximately 2 to 4 cm in diameter, and appear to be healing and noninfectious in appearance Neurologic: PERRL, EOMI, accommodation nl, no face palsy, no dysarthria Psychiatric: Orientation: oriented x 3 Eye Contact: + poor eye contact Affect: + flat affect Results & Data Results & Data Vital Signs (Past 12 Hours) Vital Signs Temp Pulse Resp BP Pulse Ox O2 Del Method 07/30/23 09:30 90 19 99 07/30/23 09:30 120/81 07/30/23 09:00 122/80 07/30/23 09:00 113 H 22 98 07/30/23 08:30 126/90 07/30/23 08:30 102 H 14 99 07/30/23 08:00 94/58 L 07/30/23 08:00 91 H 99 07/30/23 07:39 108 H 07/30/23 07:30 95/59 L 07/30/23 07:00 101 H 14 96 Room Air 07/30/23 04:44 36.8 C 07/30/23 01:02 36.7 C 110 H 19 98 07/30/23 01:02 124/73 07/30/23 00:00 36.7 C 07/30/23 00:00 108/57 L 07/30/23 00:00 36.9 C 103 H 13 07/30/23 00:00 107 H 07/29/23 23:00 121/70 07/29/23 23:00 37.0 C 101 H 17 97 07/29/23 22:56 119/78 07/29/23 22:56 37.0 C 102 H 17 98 Coding Level of Care Code 91628 SUB INP/OBS CARE 2/35MIN Diagnoses Acute hyponatremia E87.1 Decompensation of cirrhosis of liver K72.90; K74.60 Acute hypokalemia E87.6 Dizziness R42 Transaminitis R74.01 Hyperbilirubinemia E80.6 Alcohol dependence F10.20 Hepatitis K75.9 Spontaneous bacterial peritonitis K65.2 Hypokalemia E87.6
[2023-07-30 10:23] LABS: Anion Gap 7 (3-11); Blood Urea Nitrogen < 2 mg/dl (6-23); Calcium 8.3 mg/dl (8.6-10.3); Carbon Dioxide 30 mmol/L (21-32); Chloride 77 mmol/L (98-107); Creatinine Clr Calc Pharmacy 161.1 ml/min; Est GFR (African American) 148.9 ml/min; Est GFR (Non-African American) 128.4 ml/min; Glucose 123 mg/dl (70-99(Fasting)); Magnesium 1.9 mg/dl (1.7-2.4); Phosphorus 1.7 mg/dl (2.5-4.9); Potassium 3.6 mmol/L (3.5-5.1); Sodium 114 mmol/L (136-145)
[2023-07-30] MEDS ORDERED: POTASSIUM PHOS 3 MMOL/1 ML INFUSION IV STA (10:59)
--- NOTE | 2023-07-30 11:16 | Surgery Progress Note ---
Date of Service July 30, 2023 Assessment & Plan (1) Spontaneous bacterial peritonitis: Plan: He is currently on IV antibiotics and diuresis is being initiated. Discussed with radiology potential paracentesis tomorrow. Currently no surgical indications. We will continue to follow along in the background. Please call us with any urgent needs (2) Abdominal ascites: (3) Decompensation of cirrhosis of liver: Admission and Anticipated Discharge Date Admission Date: July 28, 2023 Subjective Patient seen. Not very interested in cooperating with questioning. He states that he "still feels like shit" no specific new complaints. Physical Exam Constitutional: WD/WN, vitals as above no acute distress and not ill appearing Eyes: PERRL, conjunctivae normal, anicteric sclerae EOM intact bilaterally ENMT: external ear and nose normal, oropharynx normal Ears: no hearing impairment Neck: trachea midline, no thyromegaly Respiratory: normal respiratory effort; no respiratory distress and does not use accessory muscles Cardiovascular: Rate/Rhythm: regular rate and regular rhythm Gastrointestinal (Abdomen): soft. distended. similar exam to yesterday. still quite ttp worse in LUQ. Skin: no rashes, warm and dry Psychiatric: Orientation: alert, oriented x 3 and cooperative Results & Data Vital Signs (Past 12 Hours) Vital Signs Temp Pulse Resp BP Pulse Ox O2 Del Method 07/30/23 09:30 90 19 99 07/30/23 09:30 120/81 07/30/23 09:00 122/80 07/30/23 09:00 113 H 22 98 07/30/23 08:30 126/90 07/30/23 08:30 102 H 14 99 07/30/23 08:00 94/58 L 07/30/23 08:00 91 H 99 07/30/23 07:39 108 H 07/30/23 07:30 95/59 L 07/30/23 07:00 101 H 14 96 Room Air 07/30/23 04:44 36.8 C 07/30/23 01:02 36.7 C 110 H 19 98 07/30/23 01:02 124/73 07/30/23 00:00 36.7 C 07/30/23 00:00 108/57 L 07/30/23 00:00 36.9 C 103 H 13 07/30/23 00:00 107 H PG Care Time/CCT Total # of Minutes Spent Total Time Spent with Patient: Total time spent is greater than 50% in coordination of care (as documented) at patient's floor/unit and/or counseling patient: Coding Level of Care Code 04266 SUB INP/OBS CARE 2/35MIN Diagnoses Spontaneous bacterial peritonitis K65.2 Abdominal ascites R18.8 Decompensation of cirrhosis of liver K72.90; K74.60
[2023-07-30] MEDS: POTASSIUM PHOSPHATE 21 MMOL in SODIUM CHLORIDE 0.9% 500 ML IV ONE (11:30)
--- NOTE | 2023-07-30 13:13 | Nephrology Progress Note ---
Date of Service July 30, 2023 Assessment & Plan (1) Acute hyponatremia: Plan: 1) Hyponatremia: 2/ Beer [place]/Decompensated liver disease , Very low Uosm >>Poor solute intake.Asymptomatic with low bp and ascitis. - Received Hypertonic saline in ER, Sodium over corrected.-- His admitting Na was 109 at @6.00pm. - Acceptabel correction, he continues to be Asymptomatic and is making urine. - Aim of 126-128 mmol until evening today Plan: BMP q4 until sodium reaches 125. FR to 1.5 lit today, Start on Torsemide 40 mg with spirolactone 50 mg from today - (2) Acute hypokalemia: Plan: 2/ poor intake / diuretics - Keep more than 4, replace orally (3) Decompensation of cirrhosis of liver: Plan: Will need Paracentesis and restarting of Diuretics.Would wait until Na> 125. - Continue with Abx for Presumed SBP Admission and Anticipated Discharge Date Admission Date: July 28, 2023 Subjective Patient seen. Appears comfortbale but c/o abdominla pain. Review of Systems 2 Review of Systems: c/o abdominal pain Physical Exam 2 Physical Exam: Constitutional: Alert, but withdrawn and does not want to engage he is resting in bed. HEENT: Unremarkable Neck: No jugular venous distention, carotid pulses are normal and equal bilaterally without bruits. Pulmonary: Clear to auscultation bilaterally. Cardiac: Regular rhythm with no murmur, gallop or rub. Abdomen: Distended, soft, diffuse tenderness Results & Data Vital Signs (Past 12 Hours) Vital Signs Temp Pulse Resp BP Pulse Ox O2 Del Method 07/30/23 12:30 99 H 16 98 Room Air 07/30/23 12:30 114/73 07/30/23 12:00 97/69 L 07/30/23 12:00 87 19 98 Room Air 07/30/23 11:30 89 16 100 Room Air 07/30/23 11:30 87/62 L 07/30/23 11:00 106/68 07/30/23 11:00 90 18 100 Room Air 07/30/23 10:49 103 H 21 100 Room Air 07/30/23 10:49 117/81 07/30/23 10:00 36.2 C L 96 H 16 100 Room Air 07/30/23 10:00 119/73 07/30/23 09:30 90 19 99 07/30/23 09:30 120/81 07/30/23 09:00 122/80 07/30/23 09:00 113 H 22 98 07/30/23 08:30 126/90 07/30/23 08:30 102 H 14 99 07/30/23 08:00 94/58 L 07/30/23 08:00 91 H 99 07/30/23 07:39 108 H 07/30/23 07:30 95/59 L 07/30/23 07:00 101 H 14 96 Room Air 07/30/23 04:44 36.8 C Laboratory Results 07/29/23 04:00 07/30/23 09:45
[2023-07-30] MEDS: oxyCODONE HCL IR 5 MG TAB (IMMEDIATE RELEASE) PO PRN (13:15)
[2023-07-30 15:18] LABS: Anion Gap 8 (3-11); Blood Urea Nitrogen < 2 mg/dl (6-23); Calcium 8.4 mg/dl (8.6-10.3); Carbon Dioxide 28 mmol/L (21-32); Chloride 79 mmol/L (98-107); Creatinine Clr Calc Pharmacy 195.3 ml/min; Est GFR (African American) > 150.0 ml/min; Glucose 106 mg/dl (70-99(Fasting)); Potassium 3.8 mmol/L (3.5-5.1); Sodium 115 mmol/L (136-145)
[2023-07-30 15:24] LABS: Prothrombin Time 20.6 Seconds (9.0-12.0)
--- NOTE | 2023-07-30 15:40 | Hospitalist Progress Note ---
Date of Service July 30, 2023 Assessment & Plan (1) Acute hyponatremia: Plan: 38-year-old male with PMH of alcoholic cirrhosis, alcohol withdrawal seizure, SAH, intracranial aneurysm, chronic hyponatremia, emphysema, ongoing alcohol/tobacco abuse, chronic anemia [baseline hemoglobin 9-11], MEDICAL NONCOMPLIANCE came in with complaint of increasing abdominal distention for about 2 weeks. He also states that he ran out of water pills. Of note, patient was admitted in December 2022 for abdominal ascites, decompensated liver cirrhosis, hyponatremia. He has not made any follow-up with PCP and specialist since discharge. Patient has not been answering phone calls from manager social services. He is being [place] the following[place] [facility] [place] Admitting UA, viral panel, MRSA negative. Aggressive TSH and random cortisol WNL. Acute on chronic hyponatremia Severe hyponatremia Baseline sodium level appears to be around high 120s to low 130s Admitting sodium level of 109. Urine osmolality 82, urine random sodium 20. Serum osmolality 224. Likely secondary to beer potomania, decompensated liver disease, poor solute intake. Received hypertonic saline in the ED, slightly overcorrected in day 1 and received desmopressin in ICU. BMP every 4, monitor and replete electrolytes. d/w nephro - BMP q4h; FR 1.5 l/d; starting on torsemide 40 mg/day and aldactone 50 mg /day. Nephro on board, managing hyponatremia, appreciate recs. Increase p.o. intake, increase protein content in diet. Pt w/ no headache or confusion. Other electrolyte abnormalities: Monitor and replete. History of alcoholic cirrhosis Alcohol abuse and dependence: reports last drink 2/8 evening. AWSS protocol. Thiamine and folic acid. Concern for SBP Recurrent ascites secondary to decompensated cirrhosis, medication noncompliance Patient coming in with abdominal distention, missed water pill due to running out of it. CTAP suggestive of alcoholic cirrhosis with portal hypertension and esophageal varices. NH3 80, no evidence of hepatic encephalopathy. The patient is started on lactulose. GI evaluated, agrees with antibiotic. Currently on zosyn 07/29. Patient is to follow-up with GI upon discharge. He needs to quit drinking completely. Paracentesis likely simon. Being diuresed, see above. Other chronic medical conditions: Continue with/resume home meds as and when able SAH, intracranial aneurysm emphysema as per records, symptoms at baseline chronic anemia, hemoglobin at baseline ongoing alcohol/ tobacco abuse: Cessation encouraged and highly recommended. Nicotine patch as needed. DVT prophylaxis. SCDs Re: history SAH Full code Text document was generated using [employer] voice recognition software. It may contain grammatical or spelling errors. Kindly contact undersigned for clarification of any documentation item in question. Admission and Anticipated Discharge Date Admission Date: July 28, 2023 Subjective Patient was seen and examined at bedside. Patient was lying in bed, on room air, resting comfortably, sleeping, woke up to bedside exam. Oral mucosa moist, some abdominal tenderness on palpation noted, patient declines any pain in the chest or head. Pt reports eating a little and reports moving bowels. Physical Exam Physical Exam: GENERAL: chronically ill, looks older than stated age, flat affect, no respiratory distress SKIN: jaundiced, warm HEENT: Pale palpebral conjunctivae, no ptosis, moist buccal mucosa NECK : Supple, no tenderness CHEST : Decreased breath sounds, no tenderness HEART : Tachycardic, no obvious murmurs ABDOMEN: Marked distention, +tender EXTREMITIES : Minimal LE swelling/tenderness, no other conspicuous deformities noted NEUROLOGIC : coherent, no facial asymmetry, no other gross focality Skin: tatoos and scabs at multiple areas of body. Appears non infectious superficial wound and scabs Results & Data Results & Data Vital Signs (Past 12 Hours) Vital Signs Temp Pulse Pulse Resp BP BP Pulse Ox 07/30/23 15:30 36.5 C 96 H 16 97/64 L 98 07/30/23 12:30 99 H 16 98 07/30/23 12:30 114/73 07/30/23 12:00 97/69 L 07/30/23 12:00 87 19 98 07/30/23 11:30 89 16 100 07/30/23 11:30 87/62 L 07/30/23 11:00 106/68 07/30/23 11:00 90 18 100 07/30/23 10:49 103 H 21 100 07/30/23 10:49 117/81 07/30/23 10:00 36.2 C L 96 H 16 100 07/30/23 10:00 119/73 07/30/23 09:30 90 19 99 07/30/23 09:30 120/81 07/30/23 09:00 122/80 07/30/23 09:00 113 H 22 98 07/30/23 08:30 126/90 07/30/23 08:30 102 H 14 99 07/30/23 08:00 94/58 L 07/30/23 08:00 91 H 99 07/30/23 07:39 108 H 07/30/23 07:30 95/59 L 07/30/23 07:00 101 H 14 96 07/30/23 04:44 36.8 C O2 Del Method 07/30/23 15:30 Room Air 07/30/23 12:30 Room Air 07/30/23 12:30 07/30/23 12:00 07/30/23 12:00 Room Air 07/30/23 11:30 Room Air 07/30/23 11:30 07/30/23 11:00 07/30/23 11:00 Room Air 07/30/23 10:49 Room Air 07/30/23 10:49 07/30/23 10:00 Room Air 07/30/23 10:00 07/30/23 09:30 07/30/23 09:30 07/30/23 09:00 07/30/23 09:00 07/30/23 08:30 07/30/23 08:30 07/30/23 08:00 07/30/23 08:00 07/30/23 07:39 07/30/23 07:30 07/30/23 07:00 Room Air 07/30/23 04:44
[2023-07-30 18:01] LABS: Anion Gap 7 (3-11); Blood Urea Nitrogen < 2 mg/dl (6-23); Calcium 8.3 mg/dl (8.6-10.3); Carbon Dioxide 28 mmol/L (21-32); Chloride 80 mmol/L (98-107); Est GFR (African American) > 150.0 ml/min; Est GFR (Non-African American) 134.5 ml/min; Glucose 98 mg/dl (70-99(Fasting)); Potassium 3.9 mmol/L (3.5-5.1); Sodium 115 mmol/L (136-145)
[2023-07-30 22:12] LABS: Anion Gap 5 (3-11); Blood Urea Nitrogen < 2 mg/dl (6-23); Calcium 8.1 mg/dl (8.6-10.3); Carbon Dioxide 29 mmol/L (21-32); Chloride 81 mmol/L (98-107); Creatinine Clr Calc Pharmacy 173.2 ml/min; Est GFR (African American) > 150.0 ml/min; Est GFR (Non-African American) 132.4 ml/min; Glucose 97 mg/dl (70-99(Fasting)); Potassium 3.9 mmol/L (3.5-5.1); Sodium 115 mmol/L (136-145)
--- NOTE | 2023-07-30 22:45 | Communication Note ---
Date of Service: July 30, 2023 Overnight issues 07/30 2129 serum sodium as per RN 115 Unchanged from last [address] Carpenter (Nephrology) recommended administration of Lasix 40 mg IV 1 dose now and increasing torsemide from once daily to twice daily frequency starting tomorrow. 07/31 4 AM Notified by RN of a.m. hemoglobin of 7.5 from 9. Patient denies black/bloody stools. Patient denies chest pain, SOB Melanotic smear noted on patient's bed cover. FOBT dark brown stool heme positive. AP Acute on chronic anemia secondary to UGIB Alcoholic cirrhosis IV PPI Update GI service of UGIB issue N.p.o. until seen by GI in anticipation of endoscopy Follow H&H, transfuse PRBC if hemoglobin less than 7 and or for symptomatic anemia.
[2023-07-30] MEDS: ALBUMIN 25% 25 GM/100 ML VIAL IV ONE (23:29)
[2023-07-30] MEDS: FUROSEMIDE 40 MG/4 ML VIAL IV ONE (23:29)
[2023-07-31 05:45] LABS: Hematocrit (blood only) 19.8 % (42.0-52.0); Hemoglobin 7.5 g/dl (14.0-18.0); Mean Corpuscular Hemoglobin 37.7 pg (25.0-34.0); Mean Corpuscular Hgb Conc 37.5 g/dL (32.0-36.0); Mean Corpuscular Volume 100.5 fL (80.0-100.0); Mean Platelet Volume 11.4 fL (9.4-12.4); Platelet Count 74 K/uL (130-400); RDW Coefficient of Variation 17.6 % (11.5-14.5); RDW Standard Deviation 63.5 fL (36.4-46.3); Red Blood Count 1.99 M/uL (4.70-6.10); White Blood Count 8.91 K/ul (4.8-10.8)
[2023-07-31 05:47] LABS: Anion Gap 7 (3-11); Blood Urea Nitrogen < 2 mg/dl (6-23); Calcium 8.3 mg/dl (8.6-10.3); Carbon Dioxide 29 mmol/L (21-32); Chloride 85 mmol/L (98-107); Creatinine Clr Calc Pharmacy 161.1 ml/min; Est GFR (African American) 148.9 ml/min; Est GFR (Non-African American) 128.4 ml/min; Glucose 95 mg/dl (70-99(Fasting)); Magnesium 1.6 mg/dl (1.7-2.4); Phosphorus 2.8 mg/dl (2.5-4.9); Potassium 3.4 mmol/L (3.5-5.1); Sodium 121 mmol/L (136-145)
[2023-07-31] MEDS: POTASSIUM CHLORIDE CRTAB 20 MEQ TABCR PO STA (06:20)
[2023-07-31] MEDS: MAGNESIUM SULFATE / D5W 1 GM/100 ML BAG IV ONE (06:21)
[2023-07-31 07:22] LABS: INR 1.7 (0.9-1.1); Prothrombin Time 18.2 Seconds (9.0-12.0)
[2023-07-31] MEDS: PHYTONADIONE 10 MG in DEXTROSE 5% 50 ML IV ONE (07:33)
[2023-07-31] MEDS: TORSEMIDE 20 MG TAB PO SCH (07:34)
[2023-07-31] MEDS: SODIUM CHLORIDE 1 GM TABLET PO SCH (07:35)
[2023-07-31] MEDS: PANTOprazole 80 MG in DEXTROSE 5% 100 ML IV STA (08:27)
[2023-07-31 08:42] LABS: Hematocrit (blood only) 20.2 % (42.0-52.0); Hemoglobin 7.5 g/dl (14.0-18.0)
[2023-07-31] MEDS: PANTOprazole 40 MG in DEXTROSE 5% MINI-B 100 ML IV SCH (08:45)
[2023-07-31] MEDS ORDERED: PANTOprazole 40 MG TAB PO SCH (09:00)
[2023-07-31] MEDS ORDERED: STAT IV/IM STA (10:26)
--- NOTE | 2023-07-31 10:33 | Gastroenterology Progress Note ---
Date of Service July 31, 2023 Assessment & Plan (1) Spontaneous bacterial peritonitis: (2) Abdominal ascites: (3) Decompensation of cirrhosis of liver: (4) Acute blood loss anemia: Plan 1. NPO for now. 2. EGD tomorrow 08/[address] Guido. 3. Continue PPI ggt at 8 mg/hr. 4. Start Octreotide ggt with a 50 mcg bolus, followed by infusion at 50 mcg/hr. 5. Continue IV abx and diuretic management per nephrology. 6. Notify us immediately if any significant GIB overnight. Admission and Anticipated Discharge Date Admission Date: July 28, 2023 Supervising Physician Co-Signing Physician Notes Agree with MARCUS Zraate as above Abd: Soft, NT, +BS Continue current therapy and supportive care Proceed with EGD in AM Subjective Patient reports fatigue and upper abdominal discomfort although his abdominal firmness and distention have reportedly improved. Continues IV antibiotics for SBP. Was placed NPO for drop in H&H and melena yesterday. Unfortunately, he was given a breakfast tray and he did consume the meal this morning. His H&H remains at 7.5/20.2. Has been started on a PPI ggt. No lower extremity edema. Nephrology is following patient. Review of Systems Constitutional: as per Subjective / HPI Gastrointestinal: as per Subjective / HPI Physical Exam Constitutional: WD/WN, vitals as above Eyes: + scleral abnormality (bilateral icterus ) and EOM intact bilaterally Respiratory: normal respiratory effort, lungs clear to auscultation Cardiovascular: Rate/Rhythm: regular rate and regular rhythm Gastrointestinal (Abdomen): Inspection/Auscultation: + abdomen distended and normal bowel sounds Percussion/Palpation: + ascites; abdomen nontender, no guarding and abdomen not rigid Musculoskeletal: Extremities: extremities normal to inspection Skin: + jaundice Psychiatric: A+Ox3, euthymic affect Results & Data Results & Data Vital Signs (Past 12 Hours) Vital Signs Temp Pulse Pulse Resp BP Pulse Ox O2 Del Method 07/31/23 08:15 Room Air 07/31/23 07:43 36.5 C 106 H 17 99/61 L 95 Room Air 07/31/23 03:21 36.6 C 95 H 16 100/66 95 Room Air 07/30/23 22:47 95 H 07/30/23 22:42 36.5 C 97 H 18 104/62 96 Room Air Laboratory Results Laboratory Results WBC 8.91 K/ul (4.8-10.8) 07/31/23 04:05 RBC 1.99 M/uL (4.70-6.10) L 07/31/23 04:05 Hgb 7.5 g/dl (14.0-18.0) L 07/31/23 08:05 Hct 20.2 % (42.0-52.0) L* 07/31/23 08:05 MCV 100.5 fL (80.0-100.0) H 07/31/23 04:05 MCH 37.7 pg (25.0-34.0) H 07/31/23 04:05 MCHC 37.5 g/dL (32.0-36.0) H 07/31/23 04:05 RDW Std Deviation 63.5 fL (36.4-46.3) H 07/31/23 04:05 RDW Coeff of Randall 17.6 % (11.5-14.5) H 07/31/23 04:05 Plt Count 74 K/uL (130-400) L 07/31/23 04:05 MPV 11.4 fL (9.4-12.4) 07/31/23 04:05 Immature Gran % (Auto) 0.0 % 07/29/23 04:00 Neut % (Auto) 83.8 % 07/29/23 04:00 Lymph % (Auto) 8.8 % 07/29/23 04:00 [place] % (Auto) 7.4 % 07/29/23 04:00 Eos % (Auto) 0.0 % 07/29/23 04:00 Baso % (Auto) 0.0 % 07/29/23 04:00 Neut # (Auto) 2.85 K/uL (1.40-6.50) 07/29/23 04:00 Lymph # (Auto) 0.30 K/uL (1.20-3.40) L 07/29/23 04:00 [place] # (Auto) 0.25 K/uL (0.11-0.59) 07/29/23 04:00 Eos # (Auto) 0.00 K/uL (0.00-0.50) 07/29/23 04:00 Baso # (Auto) 0.00 K/uL (0.00-0.20) 07/29/23 04:00 Immature Gran # (Auto) 0.00 K/uL (0.01-0.20) L 07/29/23 04:00 Absolute Nucleated RBC Cancelled 07/28/23 18:05 Nucleated RBC % (auto) Cancelled 07/28/23 18:05 Neutrophils % (Manual) Cancelled 07/28/23 18:05 Band Neutrophils % Cancelled 07/28/23 18:05 Lymphocytes % (Manual) Cancelled 07/28/23 18:05 Prolymphocyte % Cancelled 07/28/23 18:05 Reactive Lymphs % (Man) Cancelled 07/28/23 18:05 Monocytes % (Manual) Cancelled 07/28/23 18:05 Eosinophils % (Manual) Cancelled 07/28/23 18:05 Basophils % (Manual) Cancelled 07/28/23 18:05 Metamyelocytes % (Man) Cancelled 07/28/23 18:05 Myelocytes % (Man) Cancelled 07/28/23 18:05 Promyelocytes % (Man) Cancelled 07/28/23 18:05 Blast Cells % (Manual) Cancelled 07/28/23 18:05 Plasma Cell % (Manual) Cancelled 07/28/23 18:05 Other Cells % Cancelled 07/28/23 18:05 Nucleated RBC % Cancelled 07/28/23 18:05 Neutrophils # (Manual) Cancelled 07/28/23 18:05 Band Neutrophils # Cancelled 07/28/23 18:05 Total Absolute Neuts Cancelled 07/28/23 18:05 Lymphocytes # (Manual) Cancelled 07/28/23 18:05 Prolymphocyte # Cancelled 07/28/23 18:05 Reactive Lymphs # Cancelled 07/28/23 18:05 Total Abs Lymphocytes Cancelled 07/28/23 18:05 Monocytes # (Manual) Cancelled 07/28/23 18:05 Eosinophils # (Manual) Cancelled 07/28/23 18:05 Basophils # (Manual) Cancelled 07/28/23 18:05 Metamyelocytes # (Man) Cancelled 07/28/23 18:05 Myelocytes # (Manual) Cancelled 07/28/23 18:05 Promyelocytes # (Man) Cancelled 07/28/23 18:05 Blast Cells # (Man) Cancelled 07/28/23 18:05 Plasma Cell # (Manual) Cancelled 07/28/23 18:05 Other Cells # Cancelled 07/28/23 18:05 Nucleated RBCs # (Man) Cancelled 07/28/23 18:05 Hypersegmented Neuts Cancelled 07/28/23 18:05 Hyposegmented Neuts Cancelled 07/28/23 18:05 Hypogranular Neuts Cancelled 07/28/23 18:05 Large Granular Lymphs Cancelled 07/28/23 18:05 # Lrg Granular Lymphs Cancelled 07/28/23 18:05 Hairy Cells Cancelled 07/28/23 18:05 Smudge Cells Cancelled 07/28/23 18:05 Toxic Granulation Cancelled 07/28/23 18:05 Toxic Vacuolation Cancelled 07/28/23 18:05 Dohle Bodies Cancelled 07/28/23 18:05 Michaela Rods Cancelled 07/28/23 18:05 Platelet Estimate Cancelled 07/28/23 18:05 Hypogranular Platelets Cancelled 07/28/23 18:05 Giant Platelets Cancelled 07/28/23 18:05 Platelet Satelliting Cancelled 07/28/23 18:05 RBC Morphology Cancelled 07/28/23 18:05 Polychromasia 2+ 07/29/23 04:00 Hypochromasia Cancelled 07/28/23 18:05 Poikilocytosis Cancelled 07/28/23 18:05 Basophilic Stippling 1+ 07/29/23 04:00 Anisocytosis Cancelled 07/28/23 18:05 Microcytosis Cancelled 07/28/23 18:05 Macrocytosis Cancelled 07/28/23 18:05 Spherocytes Cancelled 07/28/23 18:05 Pappenheimer Bodies 1+ 07/29/23 04:00 Sickle Cells Cancelled 07/28/23 18:05 Target Cells 3+ 07/29/23 04:00 Tear Drop Cells Cancelled 07/28/23 18:05 Ovalocytes Cancelled 07/28/23 18:05 Stomatocytes Cancelled 07/28/23 18:05 [place] Bodies Cancelled 07/28/23 18:05 Echinocytes Cancelled 07/28/23 18:05 Acanthocytes (Spur) Cancelled 07/28/23 18:05 Rouleaux Cancelled 07/28/23 18:05 RBC Agglutinates Cancelled 07/28/23 18:05 Schistocytes Cancelled 07/28/23 18:05 Sezary Cell Cancelled 07/28/23 18:05 PT 18.2 Seconds (9.0-12.0) H 07/31/23 06:21 INR 1.7 (0.9-1.1) H 07/31/23 06:21 Sodium 121 mmol/L (136-145) L 07/31/23 08:05 Potassium 3.4 mmol/L (3.5-5.1) L 07/31/23 04:05 Chloride 85 mmol/L (98-107) L 07/31/23 04:05 Carbon Dioxide 29 mmol/L (21-32) 07/31/23 04:05 Anion Gap 7 (3-11) 07/31/23 04:05 BUN < 2 mg/dl (6-23) L 07/31/23 04:05 Creatinine 0.57 mg/dl (0.6-1.4) L 07/31/23 04:05 Est Cr Clr Drug Dosing 161.1 ml/min 07/31/23 04:05 Est GFR ( Amer) 148.9 ml/min 07/31/23 04:05 Est GFR (Non-Af Amer) 128.4 ml/min 07/31/23 04:05 BUN/Creatinine Ratio TNP 07/31/23 04:05 Glucose 95 mg/dl (70-99(Fasting)) 07/31/23 04:05 Osmolality 224 mOsm/kg (280-300) L* 07/28/23 18:05 Lactate 2.3 mmol/L (0.4-2.0) H* 07/30/23 09:45 Uric Acid 4.1 mg/dl (2.6-7.2) 07/28/23 18:05 Calcium 8.3 mg/dl (8.6-10.3) L 07/31/23 04:05 Phosphorus 2.8 mg/dl (2.5-4.9) D 07/31/23 04:05 Magnesium 1.6 mg/dl (1.7-2.4) L 07/31/23 04:05 Total Bilirubin 4.5 mg/dl (0.2-1.0) H 07/29/23 13:51 Direct Bilirubin 2.7 mg/dl (0-0.2) H 07/29/23 13:51 AST 94 U/L (13-39) H 07/29/23 13:51 ALT 37 U/L (7-52) 07/29/23 13:51 Alkaline Phosphatase 335 U/L (34-104) H 07/29/23 13:51 Ammonia 88.0 umol/L (18-72) H 07/31/23 08:05 Troponin I High Sens 20.1 pg/ml (0-20) H 07/28/23 22:56 Total Protein 5.2 gm/dl (6.0-8.3) L 07/29/23 13:51 Albumin 2.7 gm/dl (3.4-5.0) L 07/29/23 13:51 Globulin 2.4 gm/dl (2.5-4.0) L 07/29/23 04:00 Albumin/Globulin Ratio 1.1 (0.9-2) 07/29/23 04:00 Lipase 21 U/L (11-82) 07/28/23 18:05 TSH 0.361 uIu/ml (0.300-4.500) 07/28/23 18:05 Random Cortisol 23.91 mcg/dl 07/28/23 18:05 Urine Color Dark Yellow 07/29/23 16:45 Urine Appearance Clear (Clear) 07/29/23 16:45 Urine pH 6.5 (4.5-7.5) 07/29/23 16:45 Ur Specific [place] 1.032 (1.000-1.030) H 07/29/23 16:45 Urine Protein Negative (Negative) 07/29/23 16:45 Urine Glucose (UA) Negative (Negative) 07/29/23 16:45 Urine Ketones Trace (Negative) H 07/29/23 16:45 Urine Blood 2+ (Negative) H 07/29/23 16:45 Urine Nitrite Negative (Negative) 07/29/23 16:45 Urine Bilirubin 1+ (Negative) H 07/29/23 16:45 Urine Urobilinogen Negative (Negative) 07/29/23 16:45 Ur Leukocyte Esterase Negative (Negative) 07/29/23 16:45 Urine WBC (Auto) 1-5 /hpf (0-5) 07/29/23 16:45 Urine RBC (Auto) 10-30 /hpf (0-4) H 07/29/23 16:45 U Hyaline Cast (Auto) 1-5 /lpf (0-5) 07/29/23 16:45 U Epithel Cells (Auto) 10-20 /lpf (0-5) H 07/29/23 16:45 Urine Bacteria (Auto) Negative (Negative) 07/29/23 16:45 Urine Osmolality 82 mOsm/kg (500-800) L 07/28/23 20:05 Ur Random Creatinine 12.9 mg/dl 07/28/23 20:05 Ur Random Sodium 20 mmol/L 07/28/23 20:05 Urine Sodium < 10 mmol/L 07/29/23 16:45 Urine Potassium 107.8 mmol/L 07/29/23 16:45 Urine Chloride < 15 mmol/L 07/29/23 16:45 Nasal Screen MRSA (PCR) Negative (Negative) 07/29/23 Unknown Ethyl Alcohol mg/dL 16.1 mg/dl (<10.0) H 07/28/23 18:05 Adenovirus (PCR) Not Detected (NotDetected) 07/29/23 02:00 B. pertussis DNA (PCR) Not Detected (NotDetected) 07/29/23 02:00 B.parapertussis DNA PCR Not Detected (NotDetected) 07/29/23 02:00 C. pneumoniae DNA (PCR) Not Detected (NotDetected) 07/29/23 02:00 Coronavirus OC43 (PCR) Not Detected (NotDetected) 07/29/23 02:00 Coronavirus HKU1 (PCR) Not Detected (NotDetected) 07/29/23 02:00 Coronavirus 229E (PCR) Not Detected (NotDetected) 07/29/23 02:00 SARS-CoV-2 (PCR) Not Detected (NotDetected) 07/29/23 02:00 Coronavirus NL63 (PCR) Not Detected (NotDetected) 07/29/23 02:00 Human Metapneumovir PCR Not Detected (NotDetected) 07/29/23 02:00 Influenza Type A (PCR) Not Detected (NotDetected) 07/29/23 02:00 Influenza Type B (PCR) Not Detected (NotDetected) 07/29/23 02:00 M. pneumoniae (PCR) Not Detected (NotDetected) 07/29/23 02:00 Parainfluenza 1 (PCR) Not Detected (NotDetected) 07/29/23 02:00 Parainfluenza 2 (PCR) Not Detected (NotDetected) 07/29/23 02:00 Parainfluenza 3 (PCR) Not Detected (NotDetected) 07/29/23 02:00 Parainfluenza 4 (PCR) Not Detected (NotDetected) 07/29/23 02:00 RSV (PCR) Not Detected (NotDetected) 07/29/23 02:00 Entero/Rhino (PCR) Not Detected (NotDetected) 07/29/23 02:00 Blood Parasites ID Cancelled 07/28/23 18:05 Blood Type B Positive 07/31/23 08:05 Antibody Screen NEGATIVE 07/31/23 08:05 Impressions Abdomen/Pelvis CT 07/28/23 18:26 Exam(s): CT ABDOMEN + PELVIS With Contrast IV Amt: 89ML OPTIRAY 320 EXAM: CT Abdomen and Pelvis With Intravenous Contrast CLINICAL HISTORY: Reason for exam: generalized abdominal pain and distension. TECHNIQUE: Axial computed tomography images of the abdomen and pelvis with intravenous contrast. CTDI is 18.4 mGy and DLP is 953.35 mGy-cm. Automated exposure control was utilized for the study. A dose lowering technique was utilized adhering to the principles of ALARA. CONTRAST: Patient received 89ML OPTIRAY 320 of IV contrast COMPARISON: CT abdomen and pelvis 12/23/2022. FINDINGS: Lung bases: Unremarkable. No mass. No consolidation. ABDOMEN: Liver: Cirrhotic morphology of the liver with evidence of portal hypertension including esophageal varices. Gallbladder and bile ducts: Wall thickening of the gallbladder is likely reactive. No calcified stones. No ductal dilation. Pancreas: Unremarkable. No mass. No ductal dilation. Spleen: Unremarkable. No splenomegaly. Adrenals: Unremarkable. No mass. Kidneys and ureters: Unremarkable. No solid mass. No hydronephrosis. Stomach and bowel: Wall thickening of the small bowel and colon may be reactive. No obstruction. PELVIS: Appendix: Appendix is not visualized. Bladder: Unremarkable. No mass. Reproductive: Unremarkable as visualized. ABDOMEN and PELVIS: Intraperitoneal space: Mild to moderate ascites. No free air. Bones/joints: Sclerotic calcifications of the abdominal aorta and branches. A generative change in spine. No dislocation. No significant interval change in appearance of superior endplate fractures of T8, T9, and T11 vertebral bodies. Soft tissues: Unremarkable. Vasculature: Esophageal varices. Lymph nodes: Unremarkable. No enlarged lymph nodes. IMPRESSION: 1. Cirrhotic morphology of the liver with evidence of portal hypertension including esophageal varices. 2. Mild to moderate ascites. 3. Wall thickening of the small bowel and colon may be reactive. Enterocolitis cannot be excluded. Clinical correlation is recommended. Electronically signed by: Quentin Yang MD 07/28/23 20:35 PM Chest X-Ray 07/28/23 20:19 SINGLE VIEW CHEST CLINICAL HISTORY: Hyponatremia FINDINGS: An AP, portable, upright chest radiograph is compared to study dated 12/24/2022. The examination is degraded by portable technique and patient rotation. The cardiomediastinal silhouette is unremarkable. There is mild bibasilar scarring/atelectasis. Question mild airspace opacities in the right upper lobe. No large pleural effusion is identified. No pneumothorax is seen. The bony thorax is grossly intact. IMPRESSION: Question mild airspace opacities in the right upper lobe. Correlate clinically for evidence of a mild pneumonitis. Radiographic follow-up to resolution is recommended. ACT 112: Negative or not required by law. Electronically signed by: Will Townsend M.D. 07/28/2023 9:07 PM PG Care Time/CCT Total # of Minutes Spent Total Time Spent with Patient: Total time spent is greater than 50% in coordination of care (as documented) at patient's floor/unit and/or counseling patient: Coding Level of Care Code 34783 SUB INP/OBS CARE 3/50MIN Diagnoses Spontaneous bacterial peritonitis K65.2 Abdominal ascites R18.8 Decompensation of cirrhosis of liver K72.90; K74.60 Acute blood loss anemia D62
--- NOTE | 2023-07-31 10:43 | Nephrology Progress Note ---
Date of Service July 31, 2023 Assessment & Plan Admission and Anticipated Discharge Date Admission Date: July 28, 2023 Subjective Assessment & Plan (1) Acute hyponatremia: 2/ Beer Potomania/Decompensated liver disease , Very low Uosm >>Poor solute intake.Asymptomatic with low bp and ascites. Received Hypertonic saline in ER, Sodium over corrected.-- His admitting Na was 109 at @6.00pm. Acceptable rate of correction last 24hrs--by 6 meq BMP q4 until sodium reaches 125. FR to 1.5 lit today, continue Torsemide 40 mg with spirolactone 50 mg (2) Acute hypokalemia: Plan: 2/ poor intake / diuretics K low again 3.4 so give 20 meq if Possible. (3) Decompensation of cirrhosis of liver: Plan: -torsemide and Spironolactone restarted. - Continue with Abx for Presumed SBP Subjective hgb dropped and Concern about GI bleeding. na is rising and is upto 121 now Review of Systems Review of Systems: c/o abdominal pain Physical Exam Physical Exam: Constitutional: Alert, but withdrawn and does not want to engage he is resting in bed. HEENT: Unremarkable Neck: No jugular venous distention, carotid pulses are normal and equal bilaterally without bruits. Pulmonary: Clear to auscultation bilaterally. Cardiac: Regular rhythm with no murmur, gallop or rub. Abdomen: Distended, soft, diffuse tenderness Results & Data Vital Signs (Past 12 Hours) Vital Signs Temp Pulse Pulse Resp BP Pulse Ox O2 Del Method 07/31/23 08:15 Room Air 07/31/23 07:43 36.5 C 106 H 17 99/61 L 95 Room Air 07/31/23 03:21 36.6 C 95 H 16 100/66 95 Room Air 07/30/23 22:47 95 H
[2023-07-31] MEDS: POTASSIUM CHLORIDE CRTAB 20 MEQ TABCR PO SCH (11:03)
[2023-07-31] MEDS: OCTREOTIDE ACETATE 500 MCG in 0.9 % SODIUM CHLORIDE 100 ML IV SCH (11:03)
[2023-07-31] MEDS: cefTRIAXone SODIUM 2,000 MG in DEXTROSE 5 % MINI-B 50 ML IV SCH (13:17)
--- NOTE | 2023-07-31 14:47 | Ultrasound Report ---
Ultrasound-guided paracentesis INDICATION: Ascites PROCEDURE: Procedure and risks were explained. Informed consent was obtained. A final timeout was com pleted. The abdomen was prepped and draped in sterile fashion. 1% buffered lidocaine was utilized for skin anesthesia. Utilizing ultrasound guidance, a 5 [place]e safety centesis catheter was advanced into the right lower quadrant pocket of ascites. Ultrasound images were obtained. 1.7 L of ascites fluid was removed and s ent to the lab for analysis. The catheter was removed and Band-Aid applied. The patient tolerated the procedure well. Vital signs will be monitored post procedure. IMPRESSION: Ultrasound-guided paracentesis as above. Performed, dictated, and signed by Bandar Erazo PA-C; to be co-signed by Dr. Albert Sharp. Electronically signed by: Albert Sharp M.D. 07/31/2023 7:24 PM
[2023-07-31 14:48] LABS: Anion Gap 6 (3-11); Calcium 7.9 mg/dl (8.6-10.3); Carbon Dioxide 29 mmol/L (21-32); Chloride 87 mmol/L (98-107); Potassium 3.6 mmol/L (3.5-5.1); Sodium 122 mmol/L (136-145)
[2023-07-31 14:56] LABS: Blood Urea Nitrogen < 2 mg/dl (6-23); Est GFR (African American) > 150.0 ml/min; Est GFR (Non-African American) 131.3 ml/min; Glucose 181 mg/dl (70-99(Fasting))
--- NOTE | 2023-07-31 16:31 | Hospitalist Progress Note ---
Date of Service July 31, 2023 Assessment & Plan (1) Acute hyponatremia: Plan: 38-year-old male with PMH of alcoholic cirrhosis, alcohol withdrawal seizure, SAH, intracranial aneurysm, chronic hyponatremia, emphysema, ongoing alcohol/tobacco abuse, chronic anemia [baseline hemoglobin 9-11], MEDICAL NONCOMPLIANCE came in with complaint of increasing abdominal distention for about 2 weeks. He also states that he ran out of water pills. Of note, patient was admitted in December 2022 for abdominal ascites, decompensated liver cirrhosis, hyponatremia. He has not made any follow-up with PCP and specialist since discharge. 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 He is being managed for the following: [facility] info: Admitting UA, viral panel, MRSA negative. Aggressive TSH and random cortisol WNL. Acute on chronic hyponatremia Severe hyponatremia Baseline sodium level appears to be around high 120s to low 130s Admitting sodium level of 109. Urine osmolality 82, urine random sodium 20. Serum osmolality 224. Likely secondary to beer potomania, decompensated liver disease, poor solute intake. Received hypertonic saline in the ED, slightly overcorrected in day 1 and received desmopressin in ICU. BMP every 4, monitor and replete electrolytes. d/w nephro 06/30 - BMP q4h; FR 1.5 l/d; c/w torsemide 40 mg/day and aldactone 50 mg /day. Discontinue salt tablet. Nephro on board, managing hyponatremia, appreciate recs. Pt w/ no headache or confusion. Continue to monitor clinically. Sodium level 121 today. BMP every 4 hours. Other electrolyte abnormalities: Monitor and replete. Melena/UGI bleed ISO alcoholic cirrhosis: Melena Noted 07/30 evening. Hemoglobin dropped to 7.5. Follow H&H closely, transfuse for hemoglobin less than 7 or symptomatic anemia. GI following, n.p.o., possible EGD scope tomorrow morning. Continue PPI drip. Continue octreotide drip. Patient on IV antibiotic for SBP treatment. History of alcoholic cirrhosis Alcohol abuse and dependence: reports last drink 07/27 evening. AWSS protocol. Thiamine and folic acid. Concern for SBP Recurrent ascites secondary to decompensated cirrhosis, medication noncompliance Patient coming in with abdominal distention, missed water pill due to running out of it. CTAP suggestive of alcoholic cirrhosis with portal hypertension and esophageal varices. NH3 80, no evidence of hepatic encephalopathy. The patient is started on lactulose. GI evaluated, agrees with antibiotic. Currently on zosyn 07/29 - rocephin 07/31. Patient is to follow-up with GI upon discharge. He needs to quit drinking completely. s/p Paracentesis 1.7L on 07/31 - follow studies and culture. Being diuresed, see above. Other chronic medical conditions: Continue with/resume home meds as and when able SAH, intracranial aneurysm emphysema as per records, symptoms at baseline chronic anemia, hemoglobin at baseline ongoing alcohol/ tobacco abuse: Cessation encouraged and highly recommended. Nicotine patch as needed. DVT prophylaxis. SCDs Re: history SAH Full code Text document was generated using [employer] voice recognition software. It may contain grammatical or spelling errors. Kindly contact undersigned for clarification of any documentation item in question. Admission and Anticipated Discharge Date Admission Date: July 28, 2023 Subjective Patient was seen and examined at bedside. Patient was lying in bed, on room air, resting comfortably, awake and alert on exam. Oral mucosa moist, some abdominal tenderness on palpation noted, patient declines any pain in the chest or head. Overnight patient noted to have melena, his hemoglobin dropped, unfortunately he received breakfast tray in the morning which he consumed and hence EGD was not able to be performed. Physical Exam Physical Exam: GENERAL: chronically ill, looks older than stated age, flat affect, no respiratory distress SKIN: jaundiced, warm HEENT: Pale palpebral conjunctivae, no ptosis, moist buccal mucosa NECK : Supple, no tenderness CHEST : Decreased breath sounds, no tenderness HEART : Tachycardic, no obvious murmurs ABDOMEN: Marked distention, +tender EXTREMITIES : Minimal LE swelling/tenderness, no other conspicuous deformities noted NEUROLOGIC : coherent, no facial asymmetry, no other gross focality Skin: tatoos and scabs at multiple areas of body. Appears non infectious superficial wound and scabs Results & Data Results & Data Vital Signs (Past 12 Hours) Vital Signs Temp Pulse Resp BP Pulse Ox O2 Del Method 07/31/23 11:03 36.7 C 95 H 18 115/74 96 Room Air 07/31/23 08:15 Room Air 07/31/23 07:43 36.5 C 106 H 17 99/61 L 95 Room Air
[2023-07-31 17:04] LABS: Albumin Peritoneal Fluid < 1.5 gm/dl
[2023-07-31 17:09] LABS: Total Protein Peritoneal Fluid < 3.0 gm/dl
[2023-07-31 19:31] LABS: Hematocrit (blood only) 21.3 % (42.0-52.0); Hemoglobin 7.6 g/dl (14.0-18.0)
[2023-07-31 19:59] LABS: Anion Gap 6 (3-11); Blood Urea Nitrogen < 2 mg/dl (6-23); Calcium 7.9 mg/dl (8.6-10.3); Carbon Dioxide 28 mmol/L (21-32); Chloride 90 mmol/L (98-107); Creatinine Clr Calc Pharmacy 176.5 ml/min; Est GFR (African American) > 150.0 ml/min; Est GFR (Non-African American) 133.4 ml/min; Glucose 163 mg/dl (70-99(Fasting)); Potassium 3.4 mmol/L (3.5-5.1); Sodium 124 mmol/L (136-145)
[2023-07-31 21:07] LABS: Appearance Peritoneal Fluid Hazy; Color Peritoneal Fluid Yellow; Lymphocytes, Fluid 1 %; Mono,Macrophage,Mesothelial 3 %; Neutrophils, Fluid 96 %; RBC Peritoneal Fluid Auto < 2000 /uL; WBC Peritoneal Fluid Auto 5604 /ul (0-300)
[2023-07-31 23:09] LABS: Hematocrit (blood only) 21.8 % (42.0-52.0)
[2023-07-31 23:27] LABS: Anion Gap 8 (3-11); Blood Urea Nitrogen < 2 mg/dl (6-23); Calcium 7.9 mg/dl (8.6-10.3); Carbon Dioxide 27 mmol/L (21-32); Chloride 90 mmol/L (98-107); Est GFR (African American) > 150.0 ml/min; Est GFR (Non-African American) 131.3 ml/min; Glucose 137 mg/dl (70-99(Fasting)); Potassium 3.6 mmol/L (3.5-5.1); Sodium 125 mmol/L (136-145)
[2023-08-01 06:45] LABS: Hematocrit (blood only) 22.6 % (42.0-52.0); Hemoglobin 8.1 g/dl (14.0-18.0); Mean Corpuscular Hgb Conc 35.8 g/dL (32.0-36.0); Mean Corpuscular Volume 106.1 fL (80.0-100.0); Mean Platelet Volume 10.8 fL (9.4-12.4); Platelet Count 76 K/uL (130-400); RDW Coefficient of Variation 17.7 % (11.5-14.5); RDW Standard Deviation 67.8 fL (36.4-46.3); Red Blood Count 2.13 M/uL (4.70-6.10); White Blood Count 4.94 K/ul (4.8-10.8)
[2023-08-01 07:16] LABS: Anion Gap 9 (3-11); Calcium 8.1 mg/dl (8.6-10.3); Carbon Dioxide 28 mmol/L (21-32); Chloride 91 mmol/L (98-107); Est GFR (African American) > 150.0 ml/min; Glucose 128 mg/dl (70-99(Fasting)); Magnesium 1.3 mg/dl (1.7-2.4); Phosphorus 2.9 mg/dl (2.5-4.9); Sodium 128 mmol/L (136-145)
[2023-08-01 07:42] LABS: Blood Urea Nitrogen < 2 mg/dl (6-23)
--- NOTE | 2023-08-01 09:12 | Anesthesiology Consultation ---
Date of Service August 01, 2023 History Surgery Operation Date: 08/01/23 16:30 Proposed Procedures p Esophagogastroduodenoscopy Dr Guido - Quentin Gabriel Case, DO Height/Weight Height: 5 ft 7 in Weight: 66 kg Allergies Allergy/AdvReac Type Severity Reaction Status Date / Time No Known Allergies Allergy Verified 07/28/23 20:17 Medications Home Medications Medication Instructions Recorded Confirmed Last Taken multivitamin 1 tab PO DAILY 12/04/22 07/28/23 07/28/23 acetaminophen 500 mg tablet 500 mg PO Q6H PRN PAIN/FEVER 07/28/23 07/28/23 07/28/23 torsemide 20 mg tablet 40 mg PO QAM 07/28/23 07/28/23 07/28/23 Active Medications Generic Name Dose Route Start Last Admin Trade Name Freq PRN Reason Stop Dose Admin Folic Acid 1 mg 07/29/23 09:00 07/31/23 07:35 Folic Acid 1 Mg Tab PO 08/28/23 08:59 1 mg QAM MEMO Administration Promethazine HCl 6.25 mg/ 50.25 mls @ 201 mls/hr 07/28/23 21:50 07/31/23 02:03 Sodium Chloride IV 08/27/23 21:49 Infused Q6H PRN Infusion Nausea And Vomiting Pantoprazole Sodium 40 mg/ 100 mls @ 20 mls/hr 07/31/23 07:00 08/01/23 03:15 Dextrose IV 08/30/23 06:59 8 mg/hr Q5H MEMO 20 mls/hr Administration 8 MG/HR Octreotide Acetate 500 mcg/ 100.5 mls @ 10.05 mls/hr 07/31/23 10:30 08/01/23 06:11 Sodium Chloride IV 08/30/23 10:29 49.75 mcg/hr .Q10H MEMO 10 mls/hr Administration 50 MCG/HR Ceftriaxone Sodium 2,000 mg/ 50 mls @ 100 mls/hr 07/31/23 14:00 07/31/23 13:48 Dextrose IV 08/08/23 13:59 Infused Q24H MEMO Infusion Lactulose 30 gm 07/29/23 09:00 07/31/23 21:44 Lactulose Syrup 30 Gm/45 Ml Udp PO 08/28/23 08:59 30 gm BID MEMO Administration Miscellaneous 1 each 07/30/23 08:59 07/31/23 07:34 Remove Nicoderm Patch N/A 08/29/23 08:58 1 each DAILY@0859 MEMO Administration Multivitamins 1 tab 07/29/23 09:00 07/31/23 07:34 Multivitamin Tab PO 08/28/23 08:59 1 tab QAM MEMO Administration Nicotine 14 mg 07/30/23 09:00 07/31/23 07:34 Nicotine 14 Mg/24 Hr Patch TD 08/29/23 08:59 14 mg QAM MEMO Administration Oxycodone HCl 5 mg 07/28/23 21:50 07/31/23 23:18 Oxycodone Hcl Ir 5 Mg Tab (Immediate Release) PO 08/11/23 21:49 5 mg Q4H PRN Administration Pain Potassium Chloride 20 meq 07/31/23 10:45 07/31/23 11:03 Potassium Chloride Crtab 20 Meq Tabcr PO 08/30/23 10:44 20 meq QAM MEMO Administration Spironolactone 50 mg 07/30/23 09:00 07/31/23 07:34 Spironolactone 25 Mg Tab PO 08/29/23 08:59 50 mg QAM MEMO Administration Thiamine HCl 100 mg 07/29/23 09:00 07/31/23 07:34 Thiamine Hcl 100 Mg Tab PO 08/28/23 08:59 100 mg QAM MEMO Administration Torsemide 40 mg 07/31/23 09:00 07/31/23 17:50 Torsemide 20 Mg Tab PO 08/30/23 08:59 40 mg BID17 MEMO Administration NPO Date Last Intake of Fluids: 07/31/23 Time Last Intake of Fluids: 12:00 Date Last Intake of Solids: 07/31/23 Time Last Intake of Solids: 09:00 Past Medical History Medical History Spontaneous bacterial peritonitis Abdominal ascites Seizure EtOH withdrawal 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 Hyponatremia Chronic Anemia Thrombocytopenia Alcohol withdrawal Hepatitis Tobacco use Chronic hyponatremia Alcohol use CHI (closed head injury) Past Family History Family History Other Multiple myeloma Past Surgical History Surgical History No pertinent past surgical history Social History Smoking Status: Current every day smoker tobacco type: cigarettes Smoking cigarettes per day: 20 Do You Dip or Chew Tobacco: No Hx Alcohol Use: Yes Alcohol type: beer alcohol intake frequency: 0-2 drinks per day Hx Substance Use: No Physical Exam Vital Signs Last Vital Signs Temp 36.2 C L 08/01/23 08:48 Pulse 81 08/01/23 08:48 Resp 16 08/01/23 08:48 BP 130/92 08/01/23 08:48 Pulse Ox 97 08/01/23 08:48 O2 Del Method Room Air 08/01/23 08:48 Testing Laboratory Results 08/01/23 05:57 08/01/23 05:57 PT 18.2 Seconds (9.0-12.0) H 07/31/23 06:21 INR 1.7 (0.9-1.1) H 07/31/23 06:21 Urine Color Dark Yellow 07/29/23 16:45 Urine Appearance Clear (Clear) 07/29/23 16:45 Urine pH 6.5 (4.5-7.5) 07/29/23 16:45 Ur Specific [place] 1.032 (1.000-1.030) H 07/29/23 16:45 Urine Protein Negative (Negative) 07/29/23 16:45 Urine Glucose (UA) Negative (Negative) 07/29/23 16:45 Urine Ketones Trace (Negative) H 07/29/23 16:45 Urine Nitrite Negative (Negative) 07/29/23 16:45 Ur Leukocyte Esterase Negative (Negative) 07/29/23 16:45 Urine WBC (Auto) 1-5 /hpf (0-5) 07/29/23 16:45 Urine RBC (Auto) 10-30 /hpf (0-4) H 07/29/23 16:45 U Hyaline Cast (Auto) 1-5 /lpf (0-5) 07/29/23 16:45 U Epithel Cells (Auto) 10-20 /lpf (0-5) H 07/29/23 16:45 Urine Bacteria (Auto) Negative (Negative) 07/29/23 16:45 Blood Type B Positive 07/31/23 08:05 Antibody Screen NEGATIVE 07/31/23 08:05 07/31/23 Unknown Gram Stain - Final Abdomen
--- NOTE | 2023-08-01 09:41 | Communication Note ---
Date of Service: August 01, 2023 No overt GI bleeding overnight per patient. Only complaint is of thirst. He denies any fevers, chills, nausea, vomiting, diarrhea, hematemesis, or other complaints. Gen: A+O x3, Cooperative, chronic ill appearing Chest: CTA b/l CVS: RRR Abd: Soft, NT, ND, +BS Impression: 38 yo CM with alcoholic cirrhosis who presents with acute blood loss anemia and melena. Plan: Continue current therapy and supportive care Proceed with EGD now
--- NOTE | 2023-08-01 09:56 | GI REPORT ---
Patient Name: Killian Amin Procedure Date: 08/01/2023 8:19 AM Date of : 1985 Admit Type: Inpatient Age: 38 Gender: Male Attending MD: Quentin Guido DO, Procedure: Upper GI endoscopy Providers: Quentin Guido DO Referring MD: Tianna Santiago Md, Hannah Albrecht Indications: Acute post hemorrhagic anemia, Melena, Cirrhosis rule out esophageal varices Medicines: Monitored Anesthesia Care Complications: No immediate complications. Estimated Blood Loss: Estimated blood loss: none. Procedure: Pre-Anesthesia Assessment: - Prior to the procedure, a History and Physical was performed, and patient medications and allergies were reviewed. The patient's tolerance of previous anesthesia was also reviewed. The risks and benefits of the procedure and the sedation options and risks were discussed with the patient. All questions were answered, and informed consent was obtained. Prior Anticoagulants: The patient has taken no anticoagulant or antiplatelet agents. ASA Grade Assessment: III - A patient with severe systemic disease. After reviewing the risks and benefits, the patient was deemed in satisfactory condition to undergo the procedure. After obtaining informed consent, the endoscope was passed under direct vision. Throughout the procedure, the patient's blood pressure, pulse, and oxygen saturations were monitored continuously. The Endoscope was introduced through the mouth, and advanced to the second part of duodenum. The upper GI endoscopy was accomplished without difficulty. The patient tolerated the procedure well. Findings: The esophagus was normal. Localized mild inflammation characterized by erythema was found in the gastric antrum. Biopsies were taken with a cold forceps for histology. The examined duodenum was normal. Impression: - Normal esophagus. - Gastritis. Biopsied. - Normal examined duodenum. Recommendation: - Resume previous diet. - Stop Octreotide and Protonix drips. - Start Pantoprazole 40 mg by mouth twice daily - Await pathology results. - Return to primary care physician as previously scheduled. Quentin Guido DO 08/01/2023 9:56:15 AM This report has been signed electronically. Note Initiated On: 08/01/2023 8:19 AM Number of Addenda: 0 I attest to the content of the Intraoperative Record and orders documented therein, exceptions below {[id number]}
--- NOTE | 2023-08-01 10:52 | Nephrology Progress Note ---
Date of Service August 01, 2023 Assessment & Plan Admission and Anticipated Discharge Date Admission Date: July 28, 2023 Subjective Assessment & Plan (1) Acute hyponatremia: 2/ Beer Potomania/Decompensated liver disease , Very low Uosm >>Poor solute intake.Asymptomatic with low bp and ascites. Received Hypertonic saline in ER, Sodium over corrected.-- His admitting Na was 109 and now 128 Acceptable rate of correction last 24hrs BMP now daily is enough FFR to 1.5 lit today, Continue Torsemide 40 mg bid and raise spironolactone 50 mg bid (2) Acute hypokalemia: Plan: 2/ poor intake / diuretics K low again --give iv and pO supplement. got 80 meq already. raise daily dose to 20 bid. (3) Decompensation of cirrhosis of liver: Plan: torsemide and Spironolactone restarted. Continue with Abx for Presumed SBP Subjective No further drop in Hbg. Making urine. Na is rising.NO new issues Review of Systems Review of Systems: c/o abdominal pain Physical Exam Physical Exam: Constitutional: Alert, but withdrawn and does not want to engage he is resting in bed. HEENT: Unremarkable Neck: No jugular venous distention, carotid pulses are normal and equal bilaterally without bruits. Pulmonary: Clear to auscultation bilaterally. Cardiac: Regular rhythm with no murmur, gallop or rub. Abdomen: Distended, soft, diffuse tenderness Results & Data Vital Signs (Past 12 Hours) Vital Signs Temp Pulse Pulse Pulse Resp BP BP 08/01/23 10:23 81 16 122/90 08/01/23 10:08 80 08/01/23 10:08 96 H 16 124/91 08/01/23 09:56 93 H 16 113/71 08/01/23 08:48 36.2 C L 81 16 130/92 08/01/23 07:43 36.5 C 84 17 118/72 08/01/23 03:49 36.5 C 80 18 100/62 08/01/23 00:00 87 07/31/23 22:58 36.6 C 89 18 112/72 Pulse Ox O2 Del Method 08/01/23 10:23 97 Room Air 08/01/23 10:08 08/01/23 10:08 98 Room Air 08/01/23 09:56 100 Room Air 08/01/23 08:48 97 Room Air 08/01/23 07:43 98 Room Air 08/01/23 03:49 96 Room Air 08/01/23 00:00 07/31/23 22:58 96 Room Air
[2023-08-01] MEDS: POTASSIUM CHLORIDE CRTAB 20 MEQ TABCR PO STA (11:15)
[2023-08-01] MEDS: SPIRONOLACTONE 25 MG TAB PO SCH (11:16)
[2023-08-01] MEDS: POTASSIUM CHLORIDE / WTR 10 MEQ/100 ML PLCT IV SCH (11:20)
[2023-08-01] MEDS: MAGNESIUM SULFATE / D5W 1 GM/100 ML BAG IV SCH (11:20)
[2023-08-01] MEDS: GLYCOPYRROLATE 0.2 MG/ML VIAL ONE (13:29)
[2023-08-01] MEDS: LIDOCAINE 2% 2 ML VIAL/AMP(20MG/ML) INFIL ONE (13:29)
[2023-08-01] MEDS: PROPOFOL IV EMULSION 10 MG/ML 20 ML VIAL IV ONE (13:29)
[2023-08-01] MEDS: ONDANSETRON INJ 2 MG/ML 2 ML VIAL ONE (13:29)
--- NOTE | 2023-08-01 13:31 | Anesthesiology Progress Note ---
Date of Service August 01, 2023 Anesthesia Post Procedure Vital Signs Vital Signs: Temp Pulse Pulse Pulse Resp BP BP 08/01/23 10:23 81 16 122/90 08/01/23 10:08 80 08/01/23 10:08 96 H 16 124/91 08/01/23 09:56 93 H 16 113/71 08/01/23 08:48 36.2 C L 81 16 130/92 08/01/23 07:43 36.5 C 84 17 118/72 08/01/23 03:49 36.5 C 80 18 100/62 08/01/23 00:00 87 07/31/23 22:58 36.6 C 89 18 112/72 07/31/23 20:00 07/31/23 19:32 36.6 C 89 19 112/64 07/31/23 15:19 36.6 C 97 H 17 108/59 L 07/31/23 14:01 93 H Pulse Ox O2 Del Method 08/01/23 10:23 97 Room Air 08/01/23 10:08 08/01/23 10:08 98 Room Air 08/01/23 09:56 100 Room Air 08/01/23 08:48 97 Room Air 08/01/23 07:43 98 Room Air 08/01/23 03:49 96 Room Air 08/01/23 00:00 07/31/23 22:58 96 Room Air 07/31/23 20:00 Room Air 07/31/23 19:32 94 Room Air 07/31/23 15:19 93 Room Air 07/31/23 14:01 Pain Intensity Abdomen: Pain Intensity: 4 Transfer of Care Handoff Completed per policy Notes Mental Status: alert / awake / arousable and participated in evaluation Nausea / Vomiting: adequately controlled Pain: adequately controlled Airway Patency, RR, SpO2: stable & adequate BP & HR: stable & adequate Hydration State: stable & adequate Anesthetic Complications: no major complications apparent and Pt Satisfied with anesthetic care
--- NOTE | 2023-08-01 16:28 | Hospitalist Progress Note ---
Date of Service August 01, 2023 Assessment & Plan (1) Acute hyponatremia: Plan: 38-year-old male with PMH of alcoholic cirrhosis, alcohol withdrawal seizure, SAH, intracranial aneurysm, chronic hyponatremia, emphysema, ongoing alcohol/tobacco abuse, chronic anemia [baseline hemoglobin 9-11], MEDICAL NONCOMPLIANCE came in with complaint of increasing abdominal distention for about 2 weeks. He also states that he ran out of water pills. Of note, patient was admitted in December 2022 for abdominal ascites, decompensated liver cirrhosis, hyponatremia. He has not made any follow-up with PCP and specialist since discharge. Patient has not been answering phone calls from social sciences research scientist. [place] [facility] [place]A, viral panel, MRSA negative. Aggressive TSH and random cortisol WNL. Acute on chronic hyponatremia Severe hyponatremia Baseline sodium level appears to be around high 120s to low 130s Admitting sodium level of 109. Urine osmolality 82, urine random sodium 20. Serum osmolality 224. Likely secondary to beer potomania, decompensated liver disease, poor solute intake. Received hypertonic saline in the ED, slightly overcorrected in day 1 and received desmopressin in ICU. BMP daily, monitor and replete electrolytes. d/w nephro 06/30 - BMP q4h; FR 1.5 l/d; c/w torsemide 40 mg/day and aldactone 50 mg /day. Discontinued salt tablet. Nephro on board, managing hyponatremia, appreciate recs. Diuresis being optimized. Pt w/ no headache or confusion. Continue to monitor clinically. Sodium level 128 today. BMP daily. Other electrolyte abnormalities: Monitor and replete. Melena/UGI bleed ISO alcoholic cirrhosis: Melena Noted 07/30 evening. Hemoglobin dropped to 7.5. Follow H&H closely, transfuse for hemoglobin less than 7 or symptomatic anemia. Hemoglobin stable around 8. Status post EGD 08/01/2023 biopsies taken, follow-up. Normal duodenum and esophagus. Gastritis noted. GI on board, cleared for diet, stop octreotide and Protonix drip. Start pantoprazole twice daily. Labs in AM. History of alcoholic cirrhosis Alcohol abuse and dependence: reports last drink 07/27 evening. AWSS protocol. Thiamine and folic acid. Concern for SBP Recurrent ascites secondary to decompensated cirrhosis, medication noncompliance Patient coming in with abdominal distention, missed water pill due to running out of it. CTAP suggestive of alcoholic cirrhosis with portal hypertension and esophageal varices. NH3 80, no evidence of hepatic encephalopathy. The patient is started on lactulose. GI evaluated, agrees with antibiotic. Currently on zosyn 07/29 - rocephin 07/31. Patient is to follow-up with GI upon discharge. He needs to quit drinking completely. Patient has been counseled. s/p Paracentesis 1.7L on 07/31 - follow studies and culture. Peritoneal fluid with increased WBC. Being diuresed, see above. Other chronic medical conditions: Continue with/resume home meds as and when able SAH, intracranial aneurysm emphysema as per records, symptoms at baseline chronic anemia, hemoglobin at baseline ongoing alcohol/ tobacco abuse: Cessation encouraged and highly recommended. Nicotine patch as needed. DVT prophylaxis. SCDs Re: history SAH Full code Text document was generated using [employer] voice recognition software. It may contain grammatical or spelling errors. Kindly contact undersigned for clarification of any documentation item in question. Admission and Anticipated Discharge Date Admission Date: July 28, 2023 Subjective Patient was seen and examined at bedside. Patient was lying in bed, on room air, resting comfortably, awake and alert on exam. Oral mucosa moist, some abdominal tenderness on palpation noted, patient declines any pain in the chest or head. Patient denies further blood or black in his stool. Physical Exam Physical Exam: GENERAL: chronically ill, looks older than stated age, flat affect, no respiratory distress SKIN: jaundiced, warm HEENT: Pale palpebral conjunctivae, no ptosis, moist buccal mucosa NECK : Supple, no tenderness CHEST : Decreased breath sounds, no tenderness HEART : Tachycardic, no obvious murmurs ABDOMEN: Marked distention, +tender EXTREMITIES : Minimal LE swelling/tenderness, no other conspicuous deformities noted NEUROLOGIC : coherent, no facial asymmetry, no other gross focality Skin: tatoos and scabs at multiple areas of body. Appears non infectious superficial wound and scabs Results & Data Results & Data Vital Signs (Past 12 Hours) Vital Signs Temp Pulse Pulse Pulse Resp BP BP 08/01/23 15:00 36.7 C 79 17 108/70 08/01/23 10:23 81 16 122/90 08/01/23 10:08 80 08/01/23 10:08 96 H 16 124/91 08/01/23 09:56 93 H 16 113/71 08/01/23 08:48 36.2 C L 81 16 130/92 08/01/23 07:43 36.5 C 84 17 118/72 Pulse Ox O2 Del Method 08/01/23 15:00 98 Room Air 08/01/23 10:23 97 Room Air 08/01/23 10:08 08/01/23 10:08 98 Room Air 08/01/23 09:56 100 Room Air 08/01/23 08:48 97 Room Air 08/01/23 07:43 98 Room Air
[2023-08-01] MEDS: POTASSIUM CHLORIDE CRTAB 20 MEQ TABCR PO SCH (20:49)
[2023-08-01] MEDS: PANTOprazole 40 MG TAB PO SCH (20:49)
--- NOTE | 2023-08-02 08:18 | Hospitalist Progress Note ---
Date of Service August 02, 2023 Assessment & Plan (1) Acute hyponatremia: Plan: 38-year-old male with PMH of alcoholic cirrhosis, alcohol withdrawal seizure, SAH, intracranial aneurysm, chronic hyponatremia, emphysema, ongoing alcohol/tobacco abuse, chronic anemia [baseline hemoglobin 9-11], MEDICAL NONCOMPLIANCE came in with complaint of increasing abdominal distention for about 2 weeks. He also states that he ran out of water pills. Of note, patient was admitted in December 2022 for abdominal ascites, decompensated liver cirrhosis, hyponatremia. He has not made any follow-up with PCP and specialist since discharge. Patient has not been answering phone calls from social and human services assistant. He is being managed for the following: [facility] [place] info: Admitting UA, viral panel, MRSA negative. Aggressive TSH and random cortisol WNL. #Acute on chronic hyponatremia Baseline sodium level appears to be around high 120s to low 130s Admitting sodium level of 109. Urine osmolality 82, urine random sodium 20. Serum osmolality 224. Nephrology following, suspect likely secondary to beer potomania, decompensated liver disease, poor solute intake. Received hypertonic saline in the ED, slightly overcorrected in day 1 and received desmopressin in ICU. Continue FR 1.5 Continue Torsemide 40mg daily and Aldactone 50 mg daily Nephro on board, managing hyponatremia, appreciate recs. Diuresis being optimized. Sodium level 128 today. BMP daily. #Hypokalemia Monitor and replete. Daily increased to 20mgBID #Melena/UGI bleed ISO alcoholic cirrhosis #Acute on chronic anemia iso GIB Melena Noted 07/30 evening. Hemoglobin dropped to 7.5. Follow H&H closely, transfuse for hemoglobin less than 7 or symptomatic anemia. Hemoglobin stable around 8. Status post EGD 08/01/2023 biopsies taken, follow-up. Normal duodenum and esophagus. Gastritis noted. GI on board, cleared for diet, stop octreotide and Protonix drip. Start pantoprazole twice daily. Labs in AM. #Cirrhosis 2/2EtOH, decompensated #SBP #Recurrent Ascites -Issue of medication noncompliance - MELD-Na: 27 on admission - Last EGD (08/01/2023): no varices, gastritis in antrum - PSE: No evidence of HE on exam, c/w lactulose (titrated to 3-4BM / day) - Ascites: c/w home Torsemide:[place] 40:50 Consulted IR s/p paracentesis 07/31, 1.7L removed - SBP: c/w Rocephin (07/31, plan for 5 days EOT 08/04), cell count 5604 neutrophils, no PPx at home -Discuss ppx with ciprofloxacin 50mg daily - EV: No evidence of EV presently, close monitoring - on Protonix BID for gastritis - HRS: Cr at baseline - Daily CMP + INR to calculate MELD; low Na diet - GI consult Other chronic medical conditions: Continue with/resume home meds as and when able #Prior SAH, intracranial aneurysm, no symptoms #emphysema as per records, symptoms at baseline #ongoing alcohol/ tobacco abuse: Cessation encouraged and highly recommended. Nicotine patch as needed. DVT prophylaxis. SCDs Re: history SAH Full code Admission and Anticipated Discharge Date Admission Date: July 28, 2023 Results & Data Results & Data Vital Signs (Past 12 Hours) Vital Signs Temp Pulse Pulse Resp BP Pulse Ox O2 Del Method 08/02/23 03:57 36.6 C 60 18 111/67 94 Room Air 08/01/23 23:13 87 08/01/23 22:48 36.6 C 80 18 118/71 96 Room Air 08/01/23 22:40 Room Air
[2023-08-02 10:06] LABS: Hematocrit (blood only) 23.9 % (42.0-52.0); Hemoglobin 8.4 g/dl (14.0-18.0); Mean Corpuscular Hemoglobin 37.8 pg (25.0-34.0); Mean Corpuscular Hgb Conc 35.1 g/dL (32.0-36.0); Mean Corpuscular Volume 107.7 fL (80.0-100.0); Mean Platelet Volume 10.8 fL (9.4-12.4); Platelet Count 96 K/uL (130-400); RDW Coefficient of Variation 17.5 % (11.5-14.5); Red Blood Count 2.22 M/uL (4.70-6.10); White Blood Count 4.37 K/ul (4.8-10.8)
[2023-08-02 10:24] LABS: Anion Gap 8 (3-11); Blood Urea Nitrogen < 2 mg/dl (6-23); Calcium 8.3 mg/dl (8.6-10.3); Carbon Dioxide 30 mmol/L (21-32); Chloride 90 mmol/L (98-107); Creatinine Clr Calc Pharmacy 145.7 ml/min; Est GFR (African American) 142.9 ml/min; Est GFR (Non-African American) 123.3 ml/min; Glucose 120 mg/dl (70-99(Fasting)); Magnesium 1.5 mg/dl (1.7-2.4); Phosphorus 2.7 mg/dl (2.5-4.9); Potassium 3.4 mmol/L (3.5-5.1); Sodium 128 mmol/L (136-145)
--- NOTE | 2023-08-02 10:31 | Nephrology Progress Note ---
Date of Service August 02, 2023 Assessment & Plan Admission and Anticipated Discharge Date Admission Date: July 28, 2023 Subjective Assessment & Plan (1) Acute hyponatremia: 2/ Beer Potomania/Decompensated liver disease , Very low Uosm >>Poor solute intake.Asymptomatic with low bp and ascites. Received Hypertonic saline in ER, Sodium over corrected.-- His admitting Na was 109 and now 128 BMP now daily is enough FFR to 1.5 lit today, Continue Torsemide 40 mg bid and spironolactone 50 mg bid Current na of 128 may well be the best we can achieve given how advanced his Liver Diz is. As long as stable at this range we will accept it (2) Acute hypokalemia: Plan: 2/ poor intake / diuretics K low again --raise daily dose to 20 tid. (3) Decompensation of cirrhosis of liver: Plan: torsemide and Spironolactone restarted. Continue with Abx for Presumed SBP Subjective No further drop in Hbg. Making urine. Na is Same as yesterday. NO new issues Review of Systems Review of Systems: c/o abdominal pain Physical Exam Physical Exam: Constitutional: Alert, but withdrawn and does not want to engage he is resting in bed. HEENT: Unremarkable Neck: No jugular venous distention, carotid pulses are normal and equal bilaterally without bruits. Pulmonary: Clear to auscultation bilaterally. Cardiac: Regular rhythm with no murmur, gallop or rub. Abdomen: Distended, soft, diffuse tenderness Results & Data Vital Signs (Past 12 Hours) Vital Signs Temp Pulse Pulse Resp BP Pulse Ox O2 Del Method 08/02/23 08:00 86 08/02/23 07:26 36.6 C 81 20 122/82 98 Room Air 08/02/23 03:57 36.6 C 60 18 111/67 94 Room Air 08/01/23 23:13 87 08/01/23 22:48 36.6 C 80 18 118/71 96 Room Air 08/01/23 22:40 Room Air
[2023-08-02] MEDS: POTASSIUM CHLORIDE CRTAB 20 MEQ TABCR PO STA (10:51)
--- NOTE | 2023-08-02 11:14 | Discharge Summary ---
Discharge Summary Date of Service August 02, 2023 Notes For Next Care Provider Medication Changes From Visit Spironolactone 50mg two times a day Torsemide 40mg two times a day Potassium 20meq three times a day Lactulose 30mg BID Ciprofloxacin 500mg BID x 3 days, then daily for SBP ppx Pantoprazole 40mg BID Admission HPI Per Admitting Provider Medical history significant for alcoholic cirrhosis, history alcohol withdrawal seizures, SAH, intracranial aneurysm, chronic hyponatremia, emphysema as per records, ongoing alcohol/ tobacco abuse, chronic anemia ( baseline hemoglobin 9- 11), medical noncompliance. Last confinement December 2022 for abdominal ascites, decompensated liver cirrhosis, hyponatremia. Ascitic fluid post paracentesis not consistent with SBP. Hypervolemic hyponatremia attributed to cirrhosis as per Nephrology note. Patient discharged on diuretic and 1.8 L daily fluid restriction. No follow-up with PCP and specialists since discharge. Patient not answering phone calls from social media editor. 2 weeks ago, patient noted increasing abdominal distention without unusual abdominal pain. Patient ran out of water pills. No fever, no chills, no chest pain, no unusual SOB. No black/bloody stools. Tolerable headache symptoms without confusion. Serum sodium noted to be 109. NSS and hypertonic saline administered at the ER. 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 Admission Exam Per Admitting Provider GENERAL: chronically ill, looks older than stated age, flat affect, no respirato ry distress SKIN: jaundiced, warm HEENT: Pale palpebral conjunctivae, no ptosis, dry buccal mucosa NECK : Supple, no tenderness CHEST : Decreased breath sounds, no tenderness HEART : Tachycardic, no obvious murmurs ABDOMEN: Marked distention, nontender EXTREMITIES : Minimal LE swelling/tenderness, no other conspicuous deformities noted NEUROLOGIC : coherent, no facial asymmetry, no other gross focality Principal Dx & Hospital Course #1 = Principal Diagnosis (1) Spontaneous bacterial peritonitis: (2) Acute blood loss anemia: (3) Acute hypokalemia: (4) Decompensation of cirrhosis of liver: (5) Alcohol dependence: (6) Acute hyponatremia: Plan Mr. Amin is a 38-year-old male with PMH of alcoholic cirrhosis, alcohol withdrawal seizure, SAH, intracranial aneurysm, chronic hyponatremia, emphysema, ongoing alcohol/tobacco abuse, chronic anemia [baseline hemoglobin 9-11], MEDICAL NONCOMPLIANCE came in with complaint of increasing abdominal distention for about 2 weeks. He also states that he ran out of water pills. Of note, patient was admitted in December 2022 for abdominal ascites, decompensated liver cirrhosis, hyponatremia. He has not made any follow-up with PCP and specialist since discharge. Patient has not been answering phone calls from social media editor. Long discussion had on day of discharge. Patient requesting to leave and stating that he will "do his best" to be compliant; however, he notes that he has "accepted" what is "coming his way." Further support offered, but patient withdrawn and declined further discussion. He verbalized understanding of his medication regimen, the importance of compliance to prevent hospitalization, and need to follow up with specialists. He states he understands and verbalized he medication regimen back. GI recommended outpatient c-scope Nephrology stated that current sodium level with current comorbidities is acceptable. #Acute on chronic hyponatremia #Hypokalemia Baseline sodium level appears to be around high 120s to low 130s Admitting sodium level of 109. Urine osmolality 82, urine random sodium 20. Serum osmolality 224. Nephrology consulted, felt secondary to beer potomania, decompensated liver disease, poor solute intake. Received hypertonic saline in the ED, slightly overcorrected in day 1 and received desmopressin in ICU. d/w nephro, plan to discharge with the following c/w torsemide 40 mgBID and aldactone 50 mg BID Potassium 20meq TID -Follow up for lab work in 1 week (BMP) #Acute blood loss anemia #Melena/UGI bleed ISO alcoholic cirrhosis: Melena Noted 07/30 evening. Hemoglobin dropped to 7.5. Follow H&H closely, transfuse for hemoglobin less than 7 or symptomatic anemia. Hemoglobin stable around 8. Status post EGD 08/01/2023 biopsies taken, follow-up. Normal duodenum and esophagus. Gastritis noted. GI on board, cleared for diet, stop octreotide and Protonix drip Continue pantoprazole twice daily. GI recommends c-scope as OP #Decompensated cirrhosis 2/2 EtOH #Recurrent Ascites #SBP - MELD-Na: [27] on admission - Last EGD 08/01, no EV, gastritis antrum - PSE: No evidence of HE on exam, c/w lactulose 30mg BID (titrated to 3-4BM / day) - Ascites: c/w Torsemide:Mp 40 BID:50 BID Consulted IR s/p paracentesis 07/31 1.5L removed, cell count 5604 K - SBP: c/w Rocephin x 3 days, recommended 2 days of cipro 500mg BID then daily ppx - EV: No evidence EV -Continue PPI BID for gastritis - HRS: Cr at baseline Encouraged GI follow up -Declines any discussion for transplant, advanced options, or resources #Alcohol abuse and dependence: reports last drink 2/8 evening. AWSS protocol. Thiamine and folic acid. Other chronic medical conditions: Continue with/resume home meds as and when able SAH, intracranial aneurysm emphysema as per records, symptoms at baseline chronic anemia, hemoglobin at baseline ongoing alcohol/ tobacco abuse: Cessation encouraged and highly recommended. Nicotine patch as needed. On day of discharge, patient stated abdomen was no longer painful. He denied any new concerns. He verbalized understanding of plan and stated he "has it down." Discharge Exam Constitutional flat affect Respiratory normal respiratory effort, lungs clear to auscultation Cardiovascular RRR, no murmur, no edema Gastrointestinal (Abdomen) distended, soft, nontender Musculoskeletal no cyanosis or clubbing, extremities motor strength 5/5 Updated Medication List Medication Instructions Recorded Confirmed Type multivitamin 1 tab PO DAILY 12/04/22 07/28/23 History acetaminophen 500 mg tablet 500 mg PO Q6H PRN PAIN/FEVER 07/28/23 07/28/23 History ciprofloxacin HCl 500 mg tablet See Rx Instructions .Route 08/02/23 Rx .COMPLEX #36 tabs lactulose 10 gram/15 mL (15 mL) 30 g (45 mL) PO BID #1,800 mL 08/02/23 Rx oral solution pantoprazole 40 mg tablet,delayed 40 mg PO BID #60 tabs 08/02/23 Rx release potassium chloride 20 mEq 20 meq PO TID #90 tabs 08/02/23 Rx tablet,extended release(part/cryst) spironolactone 25 mg tablet 50 mg (2 x 25 mg) PO Q12 #60 tabs 08/02/23 Rx torsemide 20 mg tablet 40 mg (2 x 20 mg) PO BID17 #60 tabs 08/02/23 Rx Hospital Stay Data Consultations 02/09/24 20:17 ED Decision to Admit Stat 07/28/23 21:48 Consult Gastroenterology Routine Consult Nephrology Routine 07/28/23 22:59 Consult Four Slide Operator Routine 07/29/23 08:30 Consult General Surgery Routine Procedures Performed Operation Date: 08/01/23 16:30 Actual Procedures p EGD Biopsy Cytology - Quentin CamilleMaira Case, DO Diagnostic Imagining Performed 07/28/23 18:26 CT Abd and Pelvis [CT abd pelvis IV con only] Stat 07/31/23 IR paracentesis abd w/img US Routine Pending Results Patient Have Any Pending Studies at Discharge: No Discharge Instructions Given to Patient (Per Discharging Provider) You were admitted for abdominal swelling due to ascites, or fluid build up in abdomen. This fluid was drained and noted to have spontaneous infection. This can happen when swelling and cirrhosis goes unmanaged and bacteria from our colon "seeps" into the fluid. You will need to complete a course of antibiotics for treating the infection, then transition to daily oral regimen. -Please take Ciprofloxacin 500mg two times a day for 3 days, starting 08/03/2023. -On 08/05, Monday--please take Ciprofloxacin 500mg daily, indefinitely. Your regimen for cirrhosis has changed to help keep up and manage your sodium levels and fluid levels: -Take Spironolactone 50mg two times a day -Torsemide 40mg two times a day -Potassium 20meq three times a day Please follow up with PCP/Nephrology for BMP (lab work ) in 1 week to ensure your sodium levels and potassium levels are stable Please continue to take lactulose 30mg (30ml) 1-2 times daily with a goal of 3-4 bowel movements a day. There was concern for bleeding and you were found to have gastritis/irritation of your stomach lining -Please continue to take Pantoprazole 40mg two times a day. It is imperative that you follow up with the stomach doctor(gastroenterology) to discuss further management of cirrhosis and consideration of colonscopy It is encouraged/stressed that you follow a 1.5 L fluid restriction to ensure your water pills work optimally and prevent rapid build up of fluid. Total Time Total Time Spent Total Time Spent (In Minutes): 65
[2023-08-02 11:22] LABS: Urea Nitrogen, Random Urine <20 mg/dL
[2023-08-02] MEDS ORDERED: POTASSIUM CHLORIDE CRTAB 20 MEQ TABCR PO SCH (14:00)
[2023-08-04 00:33] LABS: Uric Acid, Random Urine 7 mg/dL (see note)
== END 2023-08-02 12:18 | disposition home or self-care (01) | DRG 372 ==
LOC: ED 17:30 → 1E 21:44 → SUATTDRO 21:44 → 1E 22:40 → 4W 07-30 14:17

== ENCOUNTER 2023-09-11 19:31 | Inpatient (IN) ==
[2023-09-11 20:38] LABS: Basophils # (auto) 0.07 K/uL (0.00-0.20); Basophils % (auto) 0.7 %; Eosinophils # (auto) 0.47 K/uL (0.00-0.50); Hematocrit (blood only) 25.7 % (42.0-52.0); Hemoglobin 8.9 g/dl (14.0-18.0); Immature Granulocytes # (auto) 0.03 K/uL (0.01-0.20); Immature Granulocytes % (auto) 0.3 %; Lymphocytes # (auto) 1.79 K/uL (1.20-3.40); Lymphocytes % (auto) 18.9 %; Mean Corpuscular Hemoglobin 34.1 pg (25.0-34.0); Mean Corpuscular Hgb Conc 34.6 g/dL (32.0-36.0); Mean Corpuscular Volume 98.5 fL (80.0-100.0); Mean Platelet Volume 8.6 fL (9.4-12.4); Monocytes # (auto) 1.67 K/uL (0.11-0.59); Monocytes % (auto) 17.6 %; Neutrophils # (auto) 5.46 K/uL (1.40-6.50); Neutrophils % (auto) 57.5 %; Platelet Count 482 K/uL (130-400); RDW Coefficient of Variation 13.8 % (11.5-14.5); RDW Standard Deviation 49.5 fL (36.4-46.3); Red Blood Count 2.61 M/uL (4.70-6.10); White Blood Count 9.49 K/ul (4.8-10.8)
[2023-09-11 21:01] LABS: Alanine Aminotransferase 16 U/L (7-52); Albumin Globulin Ratio 0.9 (0.9-2); Albumin Level 3.6 gm/dl (3.4-5.0); Alkaline Phosphatase 137 U/L (34-104); Anion Gap 10 (3-11); Aspartate Aminotransferase 25 U/L (13-39); BUN Creatinine Ratio 24.4 (10-20); Bilirubin,Total 0.7 mg/dl (0.2-1.0); Blood Urea Nitrogen 11 mg/dl (6-23); Calcium 9.3 mg/dl (8.6-10.3); Carbon Dioxide 26 mmol/L (21-32); Chloride 89 mmol/L (98-107); Creatinine Clr Calc Pharmacy 196.9 ml/min; Est GFR (African American) > 150.0 ml/min; Est GFR (Non-African American) 141.6 ml/min; Globulin 3.9 gm/dl (2.5-4.0); Glucose 109 mg/dl (70-99(Fasting)); Lipase 83 U/L (11-82); Potassium 3.6 mmol/L (3.5-5.1); Sodium 125 mmol/L (136-145); Total Protein 7.5 gm/dl (6.0-8.3)
[2023-09-11 21:17] LABS: Appearance Urine Clear (Clear); Bilirubin Urine Negative (Negative); Blood Urine Negative (Negative); Color Urine Yellow; Glucose Urine UA Negative (Negative); Ketones Urine Negative (Negative); Leukocyte Esterase Urine Negative (Negative); Nitrite Urine Negative (Negative); Protein Urine Negative (Negative); Specific Gravity Urine 1.016 (1.000-1.030); Urobilinogen Urine Negative (Negative); pH Urine 5.5 (4.5-7.5)
[2023-09-11 22:50] LABS: Troponin I High Sensitivity 5.5 pg/ml (0-20)
[2023-09-11] MEDS: OPTIRAY 350 500ml IV ONE (22:54)
[2023-09-11] MEDS: MULTI-VITAMIN INFUSION 10 ML, THIAMINE HCL 100 MG, FOLIC ACID 1 MG in SODIUM CHLORIDE 0... IV ONE (23:16)
[2023-09-11 23:17] LABS: Amphetamines+Metham, Urine Neg (Neg); Barbiturates, Urine Neg (Neg); Benzodiazepine, Urine Neg (Neg); Cocaine, Urine Neg (Neg); MDMA (Ecstacy), Urine Neg (Neg); Marijuana, Urine Neg (Neg); Methadone, Urine Neg (Neg); Opiate, Urine Pos (Neg); Phencyclidine, Urine Neg (Neg)
--- NOTE | 2023-09-11 23:54 | CT Scan Report ---
Exam(s): CT ABDOMEN + PELVIS With Contrast IV Amt: 116 ml optiray 320 EXAM: CT Abdomen and Pelvis With Intravenous Contrast CLINICAL HISTORY: Reason for exam: right side pain, alcoholic. TECHNIQUE: Axial computed tomography images of the abdomen and pelvis with intravenous contrast. CTDI is 44.01 mGy and DLP is 1108.41 mGy-cm. Automated exposure control was utilized for the study. A dose lowering technique was utilized adhering to the principles of ALARA. CONTRAST: Patient received 116 ml optiray 320 of IV contrast COMPARISON: CT abdomen pelvis 07/28/2023. FINDINGS: Lung bases: Airspace consolidation at the right lung base, concerning for pneumonia. Small right pleural effusion. ABDOMEN: Liver: Unremarkable. No mass. Gallbladder and bile ducts: Unremarkable. No calcified stones. No ductal dilation. Pancreas: Unremarkable. No mass. No ductal dilation. Spleen: Unremarkable. No splenomegaly. Adrenals: Unremarkable. No mass. Kidneys and ureters: Unremarkable. No hydronephrosis or delayed nephrogram. Stomach and bowel: Mild fluid-filled small bowel with bowel wall thickening, correlate for mild enteritis. Diverticulosis, without acute diverticulitis. No bowel obstruction. No free air. PELVIS: Appendix: No findings to suggest acute appendicitis. Bladder: Unremarkable. Normal urinary bladder. Reproductive: Unremarkable as visualized. ABDOMEN and PELVIS: Intraperitoneal space: See above. Bones/joints: Degenerative changes of the spine. No acute fracture. No dislocation. Soft tissues: Unremarkable. Vasculature: Atherosclerotic changes of the aorta. No abdominal aortic aneurysm. Lymph nodes: Unremarkable. No enlarged lymph nodes. IMPRESSION: 1. Airspace consolidation at the right lung base, concerning for pneumonia. Small right pleural effusion. 2. Mild fluid-filled small bowel with bowel wall thickening, correlate for mild enteritis. 3. Diverticulosis, without acute diverticulitis. No bowel obstruction. No free air. Electronically signed by: Govind Felix MD 09/11/23 23:54 PM
--- NOTE | 2023-09-11 23:58 | CT Scan Report ---
Exam(s): CTA CHEST IV Amt: 116 ml optiray 320 EXAM: CT Angiography Chest With Intravenous Contrast CLINICAL HISTORY: Reason for exam: right side chest pain, hx liver disease/etoh. TECHNIQUE: Axial computed tomographic angiography images of the chest with intravenous contrast. CTDI is 44.01 mGy and DLP is 1108.41 mGy-cm. Automated exposure control was utilized for the study. A dose lowering technique was utilized adhering to the principles of ALARA. MIP reconstructed images were created and reviewed. COMPARISON: No relevant prior studies available. FINDINGS: Pulmonary arteries: Unremarkable. No acute pulmonary embolism. Aorta: No acute findings. No thoracic aortic aneurysm. Lungs: Airspace consolidation of the right lung base, concerning for aspiration pneumonia. Pleural space: Small right pleural effusion, which is partially loculated. No pneumothorax. Heart: Unremarkable. No cardiomegaly. No significant pericardial effusion. No evidence of RV dysfunction. Bones/joints: Subacute fracture of the posterior right ninth rib. Old fracture of the posterior right 10th rib. No dislocation. Soft tissues: Unremarkable. Lymph nodes: Unremarkable. No enlarged lymph nodes. IMPRESSION: 1. No acute pulmonary embolism. 2. Airspace consolidation of the right lung base, concerning for aspiration pneumonia. 3. Small right pleural effusion, which is partially loculated. 4. Subacute fracture of the posterior right ninth rib. Old fracture of the posterior right 10th rib. Electronically signed by: Govind Felix MD 09/11/23 23:57 PM
[2023-09-12] MEDS: PIPERACILLIN/TAZOBACTAM 4.5 GM/100 ML BAG IV ONE (00:22)
[2023-09-12] MEDS: oxyCODONE HCL IR 5 MG TAB (IMMEDIATE RELEASE) PO PRN ×2 (01:06→14:40)
[2023-09-12 01:27] LABS: Thyroid Stimulating Hormone 0.366 uIu/ml (0.300-4.500)
--- NOTE | 2023-09-12 01:44 | History & Physical Report ---
Date of Service September 12, 2023 Assessment & Plan (1) Hyponatremia: Plan: Acute on chronic Acute hyponatremia: Plan: Acute on chronic History alcoholic cirrhosis and alcohol abuse. Right-sided pneumonia with loculated pleural effusion No sepsis for now. History COPD, occasional expiratory wheezes noted on exam hx SAH, intracranial aneurysm chronic anemia, hemoglobin better than baseline possibly from hemoconcentration ongoing alcohol/ tobacco abuse Medical telemetry given hyponatremia Careful correction of sodium, recheck serum sodium after banana bag administered at the ER 1.5 fluid restriction Hold home diuretic for now May need nephrology consult. recheck serum sodium after NSS bolus and hypertonic saline administration at the ER Unasyn for right-sided pneumonia with loculated pleural effusion Pulmonology consult Re: Complicated pneumonia KENNY S at risk protocol, DT precautions Nicotine patch as needed DVT prophylaxis. SCDs Re: history SAH Full code Text document was generated using [employer] voice recognition software. It may contain grammatical or spelling errors. Kindly contact undersigned for clarification of any documentation item in question. History of Present Illness Chief Complaint: Right-sided back pain Primary Care Provider: Hannah Albrecht, Medical history significant for alcoholic cirrhosis, gastritis, history alcohol withdrawal seizures, SAH, intracranial aneurysm, chronic hyponatremia, emphysema as per records, ongoing alcohol/ tobacco abuse, chronic anemia ( baseline hemoglobin 9), medical noncompliance. Recent confinement last month for acute on chronic hyponatremia, SBP, and UGIB. Initial hyponatremia of 109 attributed by nephrology to beer potomania, liver disease and poor solute intake. Patient discharged on diuretic Rx and 1.5 L fluid restriction. Gastritis noted on EGD. 3 weeks history of pleuritic right-sided chest and kidney pain. Unable to cough a lot because of pain. Cough productive of milky white sputum. No fever, no chills, some SOB. Not sure about sick contacts given employment at a local [employer]. Denies aspiration. 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 Allergies Allergy/AdvReac Type Severity Reaction Status Date / Time No Known Allergies Allergy Verified 09/11/23 23:01 Home Medications Medication Instructions Recorded Confirmed Type acetaminophen 500 mg tablet 500 mg PO Q6H PRN PAIN/FEVER 07/28/23 09/11/23 History torsemide 20 mg tablet 40 mg (2 x 20 mg) PO BID17 #60 tabs 08/02/23 09/11/23 Rx folic acid 1 mg tablet 1 mg PO QAM 09/11/23 09/11/23 History guaifenesin 600 mg tablet, 600 mg PO BID 09/11/23 09/11/23 History extended release 12 hr (Mucinex) hydrocodone 5 mg-acetaminophen 325 1 tab PO Q6H PRN Pain, Moderate 09/11/23 09/11/23 History mg tablet lidocaine 4 % topical patch 1 patch topical DAILY PRN Pain 09/11/23 09/11/23 History naloxone 4 mg/actuation nasal spray 4 mg intranasal DIRECTED PRN 09/11/23 09/11/23 History OVERDOSE pantoprazole 40 mg tablet,delayed 40 mg PO QAM 09/11/23 09/11/23 History release potassium chloride 20 mEq 20 meq PO TIDM 09/11/23 09/11/23 History tablet,extended release(part/cryst) thiamine HCl (vitamin B1) 100 mg 100 mg PO QAM 09/11/23 09/11/23 History tablet Past Med/Surg History Medical History Acute blood loss anemia Acute hypokalemia Acute hyponatremia Hypomagnesemia Abdominal pain Spontaneous bacterial peritonitis Abdominal ascites Seizure EtOH withdrawal 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 Hyponatremia Chronic Anemia Thrombocytopenia Alcohol withdrawal Hepatitis Tobacco use Chronic hyponatremia Alcohol use CHI (closed head injury) Surgical History No pertinent past surgical history Family History Other Multiple myeloma Social History Smoking Status: Heavy tobacco smoker Tobacco Type: Cigarettes Cigarettes Per Day: 20; Second Hand Exposure: Yes; Do You Dip or Chew Tobacco: No; Hx Alcohol Use: Yes Alcohol type: beer Hx Substance Use: No Preferred Language: Romansh Communication Ability: Effective Hearing Ability: Normal Plant Controls Specialist Required: No Beliefs That Will Affect Care: None marital status: Single Current Living Situation: Family current occupational status: employed Feels Safe at Home: Yes Safety Concerns: Feels Safe At This Time Assistive Devices: None Review of Systems Review of Systems: As per HPI, all other systems reviewed and negative Physical Exam Physical Exam: GENERAL: chronically ill, looks older than stated age, no respiratory distress SKIN: Pallor, warm HEENT: Pale palpebral conjunctivae, no ptosis, dry buccal mucosa NECK : Supple, no tenderness CHEST : Decreased breath sounds, occasional expiratory wheezes, right chest wall tenderness HEART : RRR, no obvious murmurs ABDOMEN: No distention, nontender EXTREMITIES : no LE swelling, no LE tenderness, no other conspicuous deformities noted NEUROLOGIC : coherent, no facial asymmetry, no other gross focality Results & Data Results & Data Vital Signs (Past 12 Hours) Vital Signs Temp Pulse Pulse Resp BP BP Pulse Ox 09/11/23 23:30 97 H 20 93 09/11/23 23:30 130/83 09/11/23 23:06 95 H 31 H 92 09/11/23 23:05 90 09/11/23 22:36 92 H 20 130/85 96 09/11/23 19:36 36.6 C 102 H 20 126/79 96 O2 Del Method 09/11/23 23:30 09/11/23 23:30 09/11/23 23:06 09/11/23 23:05 09/11/23 22:36 Room Air 09/11/23 19:36 Room Air Laboratory Results Laboratory Results WBC 9.49 K/ul (4.8-10.8) 09/11/23 19:48 RBC 2.61 M/uL (4.70-6.10) L 09/11/23 19:48 Hgb 8.9 g/dl (14.0-18.0) L 09/11/23 19:48 Hct 25.7 % (42.0-52.0) L 09/11/23 19:48 MCV 98.5 fL (80.0-100.0) 09/11/23 19:48 MCH 34.1 pg (25.0-34.0) H 09/11/23 19:48 MCHC 34.6 g/dL (32.0-36.0) 09/11/23 19:48 RDW Std Deviation 49.5 fL (36.4-46.3) H 09/11/23 19:48 RDW Coeff of Randall 13.8 % (11.5-14.5) 09/11/23 19:48 Plt Count 482 K/uL (130-400) H 09/11/23 19:48 MPV 8.6 fL (9.4-12.4) L 09/11/23 19:48 Immature Gran % (Auto) 0.3 % 09/11/23 19:48 Neut % (Auto) 57.5 % 09/11/23 19:48 Lymph % (Auto) 18.9 % 09/11/23 19:48 [place] % (Auto) 17.6 % 09/11/23 19:48 Eos % (Auto) 5.0 % 09/11/23 19:48 Baso % (Auto) 0.7 % 09/11/23 19:48 Neut # (Auto) 5.46 K/uL (1.40-6.50) 09/11/23 19:48 Lymph # (Auto) 1.79 K/uL (1.20-3.40) 09/11/23 19:48 [place] # (Auto) 1.67 K/uL (0.11-0.59) H 09/11/23 19:48 Eos # (Auto) 0.47 K/uL (0.00-0.50) 09/11/23 19:48 Baso # (Auto) 0.07 K/uL (0.00-0.20) 09/11/23 19:48 Immature Gran # (Auto) 0.03 K/uL (0.01-0.20) 09/11/23 19:48 Sodium 125 mmol/L (136-145) L 09/11/23 19:48 Potassium 3.6 mmol/L (3.5-5.1) 09/11/23 19:48 Chloride 89 mmol/L (98-107) L 09/11/23 19:48 Carbon Dioxide 26 mmol/L (21-32) 09/11/23 19:48 Anion Gap 10 (3-11) 09/11/23 19:48 BUN 11 mg/dl (6-23) 09/11/23 19:48 Creatinine 0.45 mg/dl (0.6-1.4) L 09/11/23 19:48 Est Cr Clr Drug Dosing 196.9 ml/min 09/11/23 19:48 Est GFR ( Amer) > 150.0 ml/min 09/11/23 19:48 Est GFR (Non-Af Amer) 141.6 ml/min 09/11/23 19:48 BUN/Creatinine Ratio 24.4 (10-20) H 09/11/23 19:48 Glucose 109 mg/dl (70-99(Fasting)) H 09/11/23 19:48 Osmolality 261 mOsm/kg (280-300) L 09/11/23 19:48 Calcium 9.3 mg/dl (8.6-10.3) 09/11/23 19:48 Total Bilirubin 0.7 mg/dl (0.2-1.0) 09/11/23 19:48 AST 25 U/L (13-39) 09/11/23 19:48 ALT 16 U/L (7-52) 09/11/23 19:48 Alkaline Phosphatase 137 U/L (34-104) H 09/11/23 19:48 Ammonia 34.0 umol/L (18-72) 09/11/23 23:07 Troponin I High Sens 5.5 pg/ml (0-20) 09/11/23 19:48 Total Protein 7.5 gm/dl (6.0-8.3) 09/11/23 19:48 Albumin 3.6 gm/dl (3.4-5.0) 09/11/23 19:48 Globulin 3.9 gm/dl (2.5-4.0) 09/11/23 19:48 Albumin/Globulin Ratio 0.9 (0.9-2) 09/11/23 19:48 Lipase 83 U/L (11-82) H 09/11/23 19:48 TSH 0.366 uIu/ml (0.300-4.500) 09/11/23 19:48 Urine Color Yellow 09/11/23 19:52 Urine Appearance Clear (Clear) 09/11/23 19:52 Urine pH 5.5 (4.5-7.5) 09/11/23 19:52 Ur Specific [place] 1.016 (1.000-1.030) 09/11/23 19:52 Urine Protein Negative (Negative) 09/11/23 19:52 Urine Glucose (UA) Negative (Negative) 09/11/23 19:52 Urine Ketones Negative (Negative) 09/11/23 19:52 Urine Blood Negative (Negative) 09/11/23 19:52 Urine Nitrite Negative (Negative) 09/11/23 19:52 Urine Bilirubin Negative (Negative) 09/11/23 19:52 Urine Urobilinogen Negative (Negative) 09/11/23 19:52 Ur Leukocyte Esterase Negative (Negative) 09/11/23 19:52 Urine Osmolality 315 mOsm/kg (500-800) L 09/11/23 19:52 Ur Random Sodium < 10 mmol/L 09/11/23 19:52 Urine Opiates Screen Pos (Neg) H 09/11/23 19:52 Ur Methadone, Qual Neg (Neg) 09/11/23 19:52 Urine Barbiturates Neg (Neg) 09/11/23 19:52 Ur Phencyclidine (PCP) Neg (Neg) 09/11/23 19:52 U Amphetamin/Meth Scrn Neg (Neg) 09/11/23 19:52 MDMA (Ecstasy) Screen Neg (Neg) 09/11/23 19:52 U Benzodiazepines Scrn Neg (Neg) 09/11/23 19:52 Ur Cocaine Metabolite Neg (Neg) 09/11/23 19:52 U Marijuana (THC) Screen Neg (Neg) 09/11/23 19:52 Ethyl Alcohol mg/dL < 10.0 mg/dl (<10.0) 09/11/23 23:07 Impressions Abdomen/Pelvis CT 09/11/23 22:24 Exam(s): CT ABDOMEN + PELVIS With Contrast IV Amt: 116 ml optiray 320 EXAM: CT Abdomen and Pelvis With Intravenous Contrast CLINICAL HISTORY: Reason for exam: right side pain, alcoholic. TECHNIQUE: Axial computed tomography images of the abdomen and pelvis with intravenous contrast. CTDI is 44.01 mGy and DLP is 1108.41 mGy-cm. Automated exposure control was utilized for the study. A dose lowering technique was utilized adhering to the principles of ALARA. CONTRAST: Patient received 116 ml optiray 320 of IV contrast COMPARISON: CT abdomen pelvis 07/28/2023. FINDINGS: Lung bases: Airspace consolidation at the right lung base, concerning for pneumonia. Small right pleural effusion. ABDOMEN: Liver: Unremarkable. No mass. Gallbladder and bile ducts: Unremarkable. No calcified stones. No ductal dilation. Pancreas: Unremarkable. No mass. No ductal dilation. Spleen: Unremarkable. No splenomegaly. Adrenals: Unremarkable. No mass. Kidneys and ureters: Unremarkable. No hydronephrosis or delayed nephrogram. Stomach and bowel: Mild fluid-filled small bowel with bowel wall thickening, correlate for mild enteritis. Diverticulosis, without acute diverticulitis. No bowel obstruction. No free air. PELVIS: Appendix: No findings to suggest acute appendicitis. Bladder: Unremarkable. Normal urinary bladder. Reproductive: Unremarkable as visualized. ABDOMEN and PELVIS: Intraperitoneal space: See above. Bones/joints: Degenerative changes of the spine. No acute fracture. No dislocation. Soft tissues: Unremarkable. Vasculature: Atherosclerotic changes of the aorta. No abdominal aortic aneurysm. Lymph nodes: Unremarkable. No enlarged lymph nodes. IMPRESSION: 1. Airspace consolidation at the right lung base, concerning for pneumonia. Small right pleural effusion. 2. Mild fluid-filled small bowel with bowel wall thickening, correlate for mild enteritis. 3. Diverticulosis, without acute diverticulitis. No bowel obstruction. No free air. Electronically signed by: Govind Felix MD 09/11/23 23:54 PM Chest CTA 09/11/23 22:24 Exam(s): CTA CHEST IV Amt: 116 ml optiray 320 EXAM: CT Angiography Chest With Intravenous Contrast CLINICAL HISTORY: Reason for exam: right side chest pain, hx liver disease/etoh. TECHNIQUE: Axial computed tomographic angiography images of the chest with intravenous contrast. CTDI is 44.01 mGy and DLP is 1108.41 mGy-cm. Automated exposure control was utilized for the study. A dose lowering technique was utilized adhering to the principles of ALARA. MIP reconstructed images were created and reviewed. COMPARISON: No relevant prior studies available. FINDINGS: Pulmonary arteries: Unremarkable. No acute pulmonary embolism. Aorta: No acute findings. No thoracic aortic aneurysm. Lungs: Airspace consolidation of the right lung base, concerning for aspiration pneumonia. Pleural space: Small right pleural effusion, which is partially loculated. No pneumothorax. Heart: Unremarkable. No cardiomegaly. No significant pericardial effusion. No evidence of RV dysfunction. Bones/joints: Subacute fracture of the posterior right ninth rib. Old fracture of the posterior right 10th rib. No dislocation. Soft tissues: Unremarkable. Lymph nodes: Unremarkable. No enlarged lymph nodes. IMPRESSION: 1. No acute pulmonary embolism. 2. Airspace consolidation of the right lung base, concerning for aspiration pneumonia. 3. Small right pleural effusion, which is partially loculated. 4. Subacute fracture of the posterior right ninth rib. Old fracture of the posterior right 10th rib. Electronically signed by: Govind Felix MD 09/11/23 23:57 PM Diagnostic Findings EKG as per my interpretation : Rate 95, NSR, normal axis, incomplete RBBB, no ischemia
[2023-09-12] MEDS ORDERED: LORazepam 1 MG in SYRINGE 0.5 ML IV PRN (01:47)
[2023-09-12] MEDS ORDERED: PROMETHAZINE HCL 6.25 MG in SODIUM CHLORIDE 0.9% 50 ML IV PRN (01:47)
[2023-09-12] MEDS: LIDOCAINE 5% 1 PATCH TD SCH (02:14)
[2023-09-12] MEDS: IPRATROPIUM BROMIDE NEB SOLN 0.02% 0.5MG/2.5ML VIAL INH STA (02:15)
[2023-09-12] MEDS: LEVALBUTEROL 1.25 MG/3 ML NEB NEB STA (02:16)
[2023-09-12] MEDS: MAGNESIUM SULFATE / D5W 1 GM/100 ML BAG IV SCH (02:40)
[2023-09-12] MEDS: NICOTINE 14 MG/24 HR PATCH TD SCH (02:40)
--- NOTE | 2023-09-12 02:59 | Emergency Department Note ---
History of Present Illness General Chief complaint: Illness Stated complaint: ISSUES WITH LIVER,KIDNEY PAIN,CHEST PAIN Time Seen by Provider: 09/11/23 22:13 History of Present Illness Maximum Pain Intensity: 9 This is a 38-year-old male patient presenting to the emergency department for evaluation of right-sided chest pain. Patient is an alcoholic with chronic liver disease. Patient was admitted to a [facility] facility in [facility] about 3 weeks ago where he underwent detox and Librium treatment. Patient did have a fall prior to that admission with a right sided rib fracture. Patient was ultimately discharged from his admission, and returned home to the [facility]. He was in [place] as that is where his mother lives. The patient states over the past 1 to 2 days he has had worsening pain and discomfort that feels like a knot or a stabbing sensation. He has not had fevers or chills. He has not had anything to drink today. He rates his discomfort a 9/10. Home Medications Medication Instructions Recorded Confirmed Type acetaminophen 500 mg tablet 500 mg PO Q6H PRN PAIN/FEVER 07/28/23 09/11/23 History torsemide 20 mg tablet 40 mg (2 x 20 mg) PO BID17 #60 tabs 08/02/23 09/11/23 Rx folic acid 1 mg tablet 1 mg PO QAM 09/11/23 09/11/23 History guaifenesin 600 mg tablet, 600 mg PO BID 09/11/23 09/11/23 History extended release 12 hr (Mucinex) hydrocodone 5 mg-acetaminophen 325 1 tab PO Q6H PRN Pain, Moderate 09/11/23 09/11/23 History mg tablet lidocaine 4 % topical patch 1 patch topical DAILY PRN Pain 09/11/23 09/11/23 History naloxone 4 mg/actuation nasal spray 4 mg intranasal DIRECTED PRN 09/11/23 09/11/23 History OVERDOSE pantoprazole 40 mg tablet,delayed 40 mg PO QAM 09/11/23 09/11/23 History release potassium chloride 20 mEq 20 meq PO TIDM 09/11/23 09/11/23 History tablet,extended release(part/cryst) thiamine HCl (vitamin B1) 100 mg 100 mg PO QAM 09/11/23 09/11/23 History tablet Allergies Allergy/AdvReac Type Severity Reaction Status Date / Time No Known Allergies Allergy Verified 09/11/23 23:01 Past Med/Surg History Medical History Acute blood loss anemia Acute hypokalemia Acute hyponatremia Hypomagnesemia Abdominal pain Spontaneous bacterial peritonitis Abdominal ascites Seizure EtOH withdrawal 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 Hyponatremia Chronic Anemia Thrombocytopenia Alcohol withdrawal Hepatitis Tobacco use Chronic hyponatremia Alcohol use CHI (closed head injury) Surgical History No pertinent past surgical history Family History Other Multiple myeloma Social History Smoking Status: Heavy tobacco smoker Tobacco Type: Cigarettes Cigarettes Per Day: 20; Second Hand Exposure: Yes; Do You Dip or Chew Tobacco: No; Hx Alcohol Use: Yes Alcohol type: beer Hx Substance Use: No Preferred Language: Guatemalan Communication Ability: Effective Hearing Ability: Normal Sheet Cutter Required: No Beliefs That Will Affect Care: None marital status: Single Current Living Situation: Family current occupational status: employed Feels Safe at Home: Yes Safety Concerns: Feels Safe At This Time Assistive Devices: None Review of Systems A total of 10 systems reviewed and were otherwise negative Physical Exam Vital Signs Vital Signs - 24 hr 09/11/23 19:36 09/11/23 22:36 09/11/23 23:05 Temperature 36.6 C Temperature Source Temporal Artery Scan Pulse Rate 102 H 90 Pulse Rate [Apical] 92 H Pulse Rate from SpO2 Sensor Pulse Rhythm Regular Pulse Strength Normal Respiratory Rate 20 20 Respiratory Effort / Characteristics Non-Labored Spontaneous Respiratory Depth Normal Normal Blood Pressure 126/79 Blood Pressure [Right Arm] 130/85 Blood Pressure Mean 94 Blood Pressure Mean [Right Arm] 100 Blood Pressure Position Sitting Pulse Oximetry 96 96 Oxygen Delivery Method Room Air Room Air Sepsis Recent Fever Within 48 Hours No Sepsis New/Unexplained Change in Mental Status N/A Sepsis Action Taken by Nursing No Action Required 09/11/23 23:06 09/11/23 23:30 09/11/23 23:30 Temperature Temperature Source Pulse Rate 95 H 97 H Pulse Rate [Apical] Pulse Rate from SpO2 Sensor 94 H 94 H Pulse Rhythm Pulse Strength Respiratory Rate 31 H 20 Respiratory Effort / Characteristics Respiratory Depth Blood Pressure 130/83 Blood Pressure [Right Arm] Blood Pressure Mean 100 Blood Pressure Mean [Right Arm] Blood Pressure Position Pulse Oximetry 92 93 Oxygen Delivery Method Sepsis Recent Fever Within 48 Hours Sepsis New/Unexplained Change in Mental Status Sepsis Action Taken by Nursing VITALS: Vitals are noted on the nurse's note and reviewed by myself. Vital signs stable. GENERAL: Well-developed, well-nourished, white male, who is in no acute distress and resting comfortably. Patient is cooperative with the examination. HEAD: Normocephalic atraumatic. NECK: Supple without nuchal rigidity. No lymphadenopathy. No thyromegaly. Cervical spine is nontender. HEART: Regular rate and rhythm without murmurs gallops or rubs. LUNGS: Diminished sounds in the lower lungs ABDOMEN: Positive normal bowel sounds x 4. Soft, nontender, without masses or organomegaly. No guarding or rebound tenderness. MUSCULOSKELETAL: No muscle atrophy, erythema, or edema noted. Full range of motion in all extremities. Course Administered Medications Magnesium Sulfate/Dextrose (Magnesium Sulfate / D5w) 1 gm in 100 mls @ 50 mls/hr IV Q2H MEMO Stop: 09/12/23 05:59 Last Admin: 09/12/23 02:40 Dose: 50 mls/hr Documented By: ALICE Lidocaine (Lidocaine 5% 1 Patch) 1 patch TD HS MEMO Stop: 10/12/23 01:44 Last Admin: 09/12/23 02:14 Dose: 1 patch Documented By: ALICE Nicotine (Nicotine 14 Mg/24 Hr Patch) 14 mg TD QAM MEMO Stop: 10/12/23 01:49 Last Admin: 09/12/23 02:40 Dose: 14 mg Documented By: ALICE Oxycodone HCl (Oxycodone Hcl Ir 5 Mg Tab (Immediate Release)) 5 mg PO Q4H PRN PRN Reason: Pain Stop: 09/26/23 00:43 Last Admin: 09/12/23 01:06 Dose: 5 mg Documented By: ALICE Discontinued Medications Multivitamins 10 ml/ Thiamine HCl 100 mg/ Folic Acid 1 mg/Sodium Chloride 1,011.2 mls @ 500 mls/hr IV .Q2H2M ONE Stop: 09/12/23 00:18 Last Infusion: 09/12/23 01:27 Dose: Infused Documented By: Admin: 09/11/23 23:16 Dose: 500 mls/hr Documented By: ALICE Piperacillin Sod/Tazobactam Sod (Zosyn) 4.5 gm in 100 mls @ 200 mls/hr IV NOW ONE Stop: 09/12/23 00:26 Last Infusion: 09/12/23 00:52 Dose: Infused Documented By: Admin: 09/12/23 00:22 Dose: 200 mls/hr Documented By: ALICE Ioversol (Optiray 350 500ml) 125 ml IV ONCE ONE Stop: 09/11/23 22:55 Last Admin: 09/11/23 22:54 Dose: 116 ml Documented By: DESI Ipratropium [place] (Ipratropium [place] Neb Soln 0.02% 0.5mg/2.5ml Vial) 0.5 mg INH NOW STA Stop: 09/12/23 01:48 Last Admin: 09/12/23 02:15 Dose: 0.5 mg Documented By: ALICE Levalbuterol HCl (Levalbuterol 1.25 Mg/3 Ml Neb) 1.25 mg NEB NOW STA Stop: 09/12/23 01:48 Last Admin: 09/12/23 02:16 Dose: 1.25 mg Documented By: ALICE Medical Decision Making Differential Diagnosis Differential diagnosis includes, but is not limited to: Myocardial infarction, dysrhythmia, pericarditis, pneumothorax, aortic aneurysm/dissection, DVT/PE, anxiety, GERD, PUD, electrolyte imbalance, thyroid disorder, pneumonia, bronchitis, pancreatitis, and others Laboratory Data 09/11/23 19:48 09/11/23 19:48 Lab Results 09/11/23 09/11/23 09/11/23 Range/Units 19:48 19:52 23:07 WBC 9.49 (4.8-10.8) K/ul RBC 2.61 L (4.70-6.10) M/uL Hgb 8.9 L (14.0-18.0) g/dl Hct 25.7 L (42.0-52.0) % MCV 98.5 (80.0-100.0) fL MCH 34.1 H (25.0-34.0) pg MCHC 34.6 (32.0-36.0) g/dL RDW Std Deviation 49.5 H (36.4-46.3) fL RDW Coeff of Randall 13.8 (11.5-14.5) % Plt Count 482 H (130-400) K/uL MPV 8.6 L (9.4-12.4) fL Immature Gran % (Auto) 0.3 % Neut % (Auto) 57.5 % Lymph % (Auto) 18.9 % [place] % (Auto) 17.6 % Eos % (Auto) 5.0 % Baso % (Auto) 0.7 % Neut # (Auto) 5.46 (1.40-6.50) K/uL Lymph # (Auto) 1.79 (1.20-3.40) K/uL [place] # (Auto) 1.67 H (0.11-0.59) K/uL Eos # (Auto) 0.47 (0.00-0.50) K/uL Baso # (Auto) 0.07 (0.00-0.20) K/uL Immature Gran # (Auto) 0.03 (0.01-0.20) K/uL Sodium 125 L (136-145) mmol/L Potassium 3.6 (3.5-5.1) mmol/L Chloride 89 L (98-107) mmol/L Carbon Dioxide 26 (21-32) mmol/L Anion Gap 10 (3-11) BUN 11 (6-23) mg/dl Creatinine 0.45 L (0.6-1.4) mg/dl Est Cr Clr Drug Dosing 196.9 ml/min Est GFR ( Amer) > 150.0 ml/min Est GFR (Non-Af Amer) 141.6 ml/min BUN/Creatinine Ratio 24.4 H (10-20) Glucose 109 H (70-99(Fasting)) mg/dl Osmolality 261 L (280-300) mOsm/kg Calcium 9.3 (8.6-10.3) mg/dl Total Bilirubin 0.7 (0.2-1.0) mg/dl AST 25 (13-39) U/L ALT 16 (7-52) U/L Alkaline Phosphatase 137 H (34-104) U/L Ammonia 34.0 (18-72) umol/L Troponin I High Sens 5.5 (0-20) pg/ml Total Protein 7.5 (6.0-8.3) gm/dl Albumin 3.6 (3.4-5.0) gm/dl Globulin 3.9 (2.5-4.0) gm/dl Albumin/Globulin Ratio 0.9 (0.9-2) Lipase 83 H (11-82) U/L TSH 0.366 (0.300-4.500) uIu/ml Urine Color Yellow Urine Appearance Clear (Clear) Urine pH 5.5 (4.5-7.5) Ur Specific [place] 1.016 (1.000-1.030) Urine Protein Negative (Negative) Urine Glucose (UA) Negative (Negative) Urine Ketones Negative (Negative) Urine Blood Negative (Negative) Urine Nitrite Negative (Negative) Urine Bilirubin Negative (Negative) Urine Urobilinogen Negative (Negative) Ur Leukocyte Esterase Negative (Negative) Urine Osmolality 315 L (500-800) mOsm/kg Ur Random Sodium < 10 mmol/L Urine Opiates Screen Pos H (Neg) Ur Methadone, Qual Neg (Neg) Urine Barbiturates Neg (Neg) Ur Phencyclidine (PCP) Neg (Neg) U Amphetamin/Meth Scrn Neg (Neg) MDMA (Ecstasy) Screen Neg (Neg) U Benzodiazepines Scrn Neg (Neg) Ur Cocaine Metabolite Neg (Neg) U Marijuana (THC) Screen Neg (Neg) Ethyl Alcohol mg/dL < 10.0 (<10.0) mg/dl Imaging Data Radiologist's Impression: Abdomen/Pelvis CT 09/11/23 22:24 Exam(s): CT ABDOMEN + PELVIS With Contrast IV Amt: 116 ml optiray 320 EXAM: CT Abdomen and Pelvis With Intravenous Contrast CLINICAL HISTORY: Reason for exam: right side pain, alcoholic. TECHNIQUE: Axial computed tomography images of the abdomen and pelvis with intravenous contrast. CTDI is 44.01 mGy and DLP is 1108.41 mGy-cm. Automated exposure control was utilized for the study. A dose lowering technique was utilized adhering to the principles of ALARA. CONTRAST: Patient received 116 ml optiray 320 of IV contrast COMPARISON: CT abdomen pelvis 07/28/2023. FINDINGS: Lung bases: Airspace consolidation at the right lung base, concerning for pneumonia. Small right pleural effusion. ABDOMEN: Liver: Unremarkable. No mass. Gallbladder and bile ducts: Unremarkable. No calcified stones. No ductal dilation. Pancreas: Unremarkable. No mass. No ductal dilation. Spleen: Unremarkable. No splenomegaly. Adrenals: Unremarkable. No mass. Kidneys and ureters: Unremarkable. No hydronephrosis or delayed nephrogram. Stomach and bowel: Mild fluid-filled small bowel with bowel wall thickening, correlate for mild enteritis. Diverticulosis, without acute diverticulitis. No bowel obstruction. No free air. PELVIS: Appendix: No findings to suggest acute appendicitis. Bladder: Unremarkable. Normal urinary bladder. Reproductive: Unremarkable as visualized. ABDOMEN and PELVIS: Intraperitoneal space: See above. Bones/joints: Degenerative changes of the spine. No acute fracture. No dislocation. Soft tissues: Unremarkable. Vasculature: Atherosclerotic changes of the aorta. No abdominal aortic aneurysm. Lymph nodes: Unremarkable. No enlarged lymph nodes. IMPRESSION: 1. Airspace consolidation at the right lung base, concerning for pneumonia. Small right pleural effusion. 2. Mild fluid-filled small bowel with bowel wall thickening, correlate for mild enteritis. 3. Diverticulosis, without acute diverticulitis. No bowel obstruction. No free air. Electronically signed by: Govind Felix MD 09/11/23 23:54 PM Chest CTA 09/11/23 22:24 Exam(s): CTA CHEST IV Amt: 116 ml optiray 320 EXAM: CT Angiography Chest With Intravenous Contrast CLINICAL HISTORY: Reason for exam: right side chest pain, hx liver disease/etoh. TECHNIQUE: Axial computed tomographic angiography images of the chest with intravenous contrast. CTDI is 44.01 mGy and DLP is 1108.41 mGy-cm. Automated exposure control was utilized for the study. A dose lowering technique was utilized adhering to the principles of ALARA. MIP reconstructed images were created and reviewed. COMPARISON: No relevant prior studies available. FINDINGS: Pulmonary arteries: Unremarkable. No acute pulmonary embolism. Aorta: No acute findings. No thoracic aortic aneurysm. Lungs: Airspace consolidation of the right lung base, concerning for aspiration pneumonia. Pleural space: Small right pleural effusion, which is partially loculated. No pneumothorax. Heart: Unremarkable. No cardiomegaly. No significant pericardial effusion. No evidence of RV dysfunction. Bones/joints: Subacute fracture of the posterior right ninth rib. Old fracture of the posterior right 10th rib. No dislocation. Soft tissues: Unremarkable. Lymph nodes: Unremarkable. No enlarged lymph nodes. IMPRESSION: 1. No acute pulmonary embolism. 2. Airspace consolidation of the right lung base, concerning for aspiration pneumonia. 3. Small right pleural effusion, which is partially loculated. 4. Subacute fracture of the posterior right ninth rib. Old fracture of the posterior right 10th rib. Electronically signed by: Govind Felix MD 09/11/23 23:57 PM MDM Narrative Physical exam and history were performed. Nursing notes, EMR, and Medication List were personally reviewed. No social concerns were identified as barriers to patients care. Patient appears to have pain in his right side chest. Patient was seen during a period of very high ER volume and acuity with extended wait times. Nursing protocol order have been performed and some of these are available for my review at the time of patient encounter. Patient's blood work is as above and was reviewed. He does not have a significantly elevated white blood cell count. He is anemic which seems chronic and likely from his chronic alcohol use. Patient is hyponatremic at 125. Alcohol is negative. Transaminases not significantly elevated. Chest x-ray was performed and too old x-ray is concerning for possible infiltrate in the right lower lobe. This is where the patient has history of recent rib fracture, and also is in a distribution where most of his pain is. CT scan of the chest, abdomen, and pelvis was performed, reviewed by myself and radiology, and is consistent with a right lower lobe pneumonia. This certainly would fit with an aspiration pattern. Will patient does not appear well for discharge. Escalation of care is necessary. He was given a banana bag and IV Zosyn here in the ER. Case was discussed with the on-call hospitalist who agreed to evaluate the patient here in the ER. Please see their dictation for further patient course, plan, and disposition. The chart was completed utilizing [employer] Speech Voice Recognition Software. Grammatical errors, random word insertions, pronoun errors, and incomplete sentences are an occasional consequence of this system due to software limitations, ambient noise, and hardware issues. Any formal questions or concerns about the content, text, or information contained within the body of this dictation should be directly addressed to the provider for clarification. . Impression & Plan Right lower lobe pneumonia, Hyponatremia Discharge Plan Visit Data Chief Complaint: Illness Stated Complaint: ISSUES WITH LIVER,KIDNEY PAIN,CHEST PAIN ED Provider: Gary Manjarrez ED Midlevel Provider: Nader Charles Discharge Problem: Right lower lobe pneumonia, Hyponatremia Discharge Instructions Interventions: ED Discharge Assessment Last Done: 09/12/23 02:15
[2023-09-12 04:03] LABS: Basophils # (auto) 0.07 K/uL (0.00-0.20); Basophils % (auto) 0.8 %; Eosinophils # (auto) 0.57 K/uL (0.00-0.50); Eosinophils % (auto) 6.6 %; Hemoglobin 9.1 g/dl (14.0-18.0); Immature Granulocytes # (auto) 0.02 K/uL (0.01-0.20); Immature Granulocytes % (auto) 0.2 %; Lymphocytes # (auto) 1.52 K/uL (1.20-3.40); Lymphocytes % (auto) 17.5 %; Mean Platelet Volume 8.4 fL (9.4-12.4); Monocytes # (auto) 1.52 K/uL (0.11-0.59); Monocytes % (auto) 17.5 %; Neutrophils # (auto) 4.97 K/uL (1.40-6.50); Neutrophils % (auto) 57.4 %; Platelet Count 498 K/uL (130-400); RDW Coefficient of Variation 13.7 % (11.5-14.5); RDW Standard Deviation 49.5 fL (36.4-46.3); Red Blood Count 2.68 M/uL (4.70-6.10); White Blood Count 8.67 K/ul (4.8-10.8)
[2023-09-12] MEDS: oxyCODONE HCL IR 5 MG TAB (IMMEDIATE RELEASE) PO STA (04:07)
[2023-09-12 04:12] LABS: Anion Gap 10 (3-11); BUN Creatinine Ratio 13.5 (10-20); Blood Urea Nitrogen 5 mg/dl (6-23); Calcium 9.2 mg/dl (8.6-10.3); Carbon Dioxide 24 mmol/L (21-32); Chloride 94 mmol/L (98-107); Est GFR (African American) > 150.0 ml/min; Est GFR (Non-African American) > 150.0 ml/min; Glucose 103 mg/dl (70-99(Fasting)); Potassium 3.3 mmol/L (3.5-5.1); Sodium 128 mmol/L (136-145)
[2023-09-12] MEDS: MoRPHine SULFATE 2 MG/ML CARP IV PRN (04:53)
[2023-09-12] MEDS: AMPICILLIN/SULBACTAM SOD 3,000 MG in SODIUM CHLOR 0.9% MINI-B 100 ML IV SCH (06:10)
--- NOTE | 2023-09-12 07:11 | XRay Report ---
XR chest 1V not portable CLINICAL HISTORY: Abdominal pain. COMPARISON STUDY: Chest radiograph August 15, 2023. FINDINGS: There is no pneumothorax. A small right pleural effusion is present. Right mid and basilar airspace opacity is present. Left lung is clear. No radiographic evidence for pulmonary edema. Cardia c size is within normal limits. IMPRESSION: 1. Right mid and lower lung airspace opacity which could reflect pneumonia or atelectasis. Radiograph ic follow up to ensure resolution is recommended. 2. Small right pleural effusion. ACT 112: Negative or not required by law. Electronically signed by: Octavio Montes M.D. 09/12/2023 7:10 AM
--- NOTE | 2023-09-12 07:29 | Pulmonary Consultation ---
Date of Consultation September 12, 2023 Assessment & Plan (1) Right lower lobe pneumonia: (2) Tobacco use: (3) Pleural effusion: (4) Pleuritic chest pain: Plan CT chest 09/11/2023 personally reviewed: Small to moderate right-sided pleural effusion with dependent atelectasis Paraseptal emphysema appreciated bilaterally especially on the right side No significant mediastinal lymphadenopathy -- Right-sided pleural effusion Etiology is not clear Parapneumonic is a possibility Procalcitonin 0.54, BNP 111 S/p thoracentesis 09/12/2023, exudative, 400 mL sero-sanguinous removed Pleural fluid: LDH 388, protein 4.6, pH 7.43 Serum: LDH 125, protein 7.2 --Right-sided rib fractures Subacute Continue with pain management --Active smoker [id number] smoking history Positive quitting explained the patient in depth Plan: Follow-up nasal MRSA Continue with antibiotics S/p thoracentesis today Please note the above document was generated using voice recognition software. It may contain grammatical, syntax or spelling errors.Any formal questions or concerns about the content, text or information contained within the body of this dictation should be directly addressed to the provider for clarification. History of Present Illness Attending Physician: Horace Yun MD History of Present Illness 38-year-old male present to the hospital with complaints of right-sided chest pain Past medical history: Alcoholic cirrhosis, gastritis, subarachnoid hemorrhage, chronic hyponatremia Pulmonary consulted for right-sided pleural effusion At the time of examination patient was walking with the help of a cane in the room while complaining of right-sided chest posterior as well as right flank pain. He had thoracentesis done earlier today by IR. Patient states that he fell a week or so ago for which she had right-sided chest pain He came in with subjective chills and pleuritic right-sided chest pain, cough with clear phlegm. Denies any hemoptysis. No dysuria, no diarrhea No nausea or vomiting. No headache, no blurry vision No history of autoimmune disease in the family No personal history of any autoimmune disease like lupus, sarcoid, Sjogren's, rheumatoid Social history: Approximately [id number] smoking history, currently smoking a pack a day, alcohol on a daily basis, history of heavy use. Denies any illicit drug use Allergies Allergy/AdvReac Type Severity Reaction Status Date / Time No Known Allergies Allergy Verified 09/11/23 23:01 Home Medications Medication Instructions Recorded Confirmed Type acetaminophen 500 mg tablet 500 mg PO Q6H PRN PAIN/FEVER 07/28/23 09/11/23 History torsemide 20 mg tablet 40 mg (2 x 20 mg) PO BID17 #60 tabs 08/02/23 09/11/23 Rx folic acid 1 mg tablet 1 mg PO QAM 09/11/23 09/11/23 History guaifenesin 600 mg tablet, 600 mg PO BID 09/11/23 09/11/23 History extended release 12 hr (Mucinex) hydrocodone 5 mg-acetaminophen 325 1 tab PO Q6H PRN Pain, Moderate 09/11/23 09/11/23 History mg tablet lidocaine 4 % topical patch 1 patch topical DAILY PRN Pain 09/11/23 09/11/23 History naloxone 4 mg/actuation nasal spray 4 mg intranasal DIRECTED PRN 09/11/23 09/11/23 History OVERDOSE pantoprazole 40 mg tablet,delayed 40 mg PO QAM 09/11/23 09/11/23 History release potassium chloride 20 mEq 20 meq PO TIDM 09/11/23 09/11/23 History tablet,extended release(part/cryst) thiamine HCl (vitamin B1) 100 mg 100 mg PO QAM 09/11/23 09/11/23 History tablet Patient History Medical History Acute blood loss anemia Acute hypokalemia Acute hyponatremia Hypomagnesemia Abdominal pain Spontaneous bacterial peritonitis Abdominal ascites Seizure EtOH withdrawal 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 Hyponatremia Chronic Anemia Thrombocytopenia Alcohol withdrawal Hepatitis Tobacco use Chronic hyponatremia Alcohol use CHI (closed head injury) Surgical History No pertinent past surgical history Family History Other Multiple myeloma Social History Smoking Status: Heavy tobacco smoker Tobacco Type: Cigarettes Cigarettes Per Day: 20; Second Hand Exposure: Yes; Do You Dip or Chew Tobacco: No; Hx Alcohol Use: Yes Alcohol type: beer Hx Substance Use: No Preferred Language: Italian Communication Ability: Effective Hearing Ability: Normal Yard[place] Caller Required: No Beliefs That Will Affect Care: None marital status: Single Current Living Situation: Family current occupational status: employed Feels Safe at Home: Yes Safety Concerns: Feels Safe At This Time Assistive Devices: None Review of Systems 2 Review of Systems: All systems reviewed & are unremarkable except as noted in HPI & below Physical Exam 2 Physical Exam: Constitutional: No acute distress HEENT: EOMI, PERRLA Respiratory system: Decreased air entry bilaterally, more decreased on the right side, no wheeze, no rhonchi, mild crackles bilaterally CVS: S1-S2 positive, no murmurs or gallops Abdomen: Soft, nontender, nondistended, positive bowel sounds x4 Extremities: +2 pulses bilaterally radialis/ dorsalis pedis, no cyanosis, no edema Neuro: Awake alert oriented x3 Psych: Normal mood and affect G/U: No Mabry Skin: Tattoos all over the body Skin: no rashes, warm and dry Lymphatic: no cervical or axillary lymphadenopathy Results & Data Results & Data Vital Signs (Past 12 Hours) Vital Signs Temp Pulse Pulse Resp BP BP Pulse Ox 09/12/23 03:09 36.7 C 104 H 18 139/95 93 09/12/23 03:03 109 H 09/11/23 23:30 97 H 20 93 09/11/23 23:30 130/83 09/11/23 23:06 95 H 31 H 92 09/11/23 23:05 90 09/11/23 22:36 92 H 20 130/85 96 09/11/23 19:36 36.6 C 102 H 20 126/79 96 O2 Del Method 09/12/23 03:09 Room Air 09/12/23 03:03 09/11/23 23:30 09/11/23 23:30 09/11/23 23:06 09/11/23 23:05 09/11/23 22:36 Room Air 09/11/23 19:36 Room Air Laboratory Results 09/12/23 03:22 09/12/23 14:11 PG Care Time/CCT Total # of Minutes Spent Total Time Spent with Patient: Total time spent is greater than 50% in coordination of care (as documented) at patient's floor/unit and/or counseling patient: Coding Level of Care Code 36921 INT INP/OBS CARE MIN Diagnoses Right lower lobe pneumonia J18.9 Tobacco use Z72.0 Pleural effusion J90 Pleuritic chest pain R07.81
--- OUTSIDE RECORDS SUMMARY | 2023-09-12 07:41 | External Medical Summary | Summary of Care ---
Author Name Unknown Organization [facility] Address [address] [place] [address] Phone [phone] Care Team Providers Care Ammunition And Explosives Handler Name Role Phone Hannah Albrecht DO Primary Care Provider Reason for Referral * Evaluate & Treat - Unlimited Visits (Within 30 days (routine)) - Pending Review Specialty Diagnoses / Procedures Referred By Tesfaye roche Referred To Contact Gastroenterology Diagnoses Alcoholic liver failure (HCC) Daya Boothe MD [address] [facility] [place] [address] Referral ID Status Reason Start Date Expiration Date Visits Requested Visits Authorized [id number] Pending Review Specialty Services Required 08/22/[phone] Question Answer Referral Priority Within 30 days (routine) Where should this appointment be scheduled? [facility] For what condition is the patient being referred? Liver conditions Encounter Details Date Type Department Care Team (Late st Contact Info) Description 08/18/2023 Telephone Family Practice [facility] [place] [address] [facility] [place] [address] Hannah Albrecht DO [address] [facility] [place] [address] Allergies Active Allergy Reactions Criticality Noted Date Comments Cat Dander Other (Please comment) 07/21/2021 Watery eyes and sneezing documented as of this encounter (statuses as of 08/23/2023) Medications Medication Sig Dispensed Refills Start Date End Date Status Multivitamin Adult Oral Tablet Take 1 Tablet by mouth in the morning. 0 Active Magnesium Oxide 400 (241.3 Mg) MG Oral Tablet Take 400 mg by mouth in the morning. 0 Active Folic Acid 1 MG Oral Tablet TAKE 1 TABLET BY MOUTH ONCE DAILY IN THE MORNING 0 12/08/2022 Active Ciprofloxacin HCl 500 MG Oral Tablet (Cipro) Take 1 Tablet by mouth in the morning. 0 08/02/2023 Active Pantoprazole Sodium 40 MG Oral Tablet Delayed Release (Protonix) Take 1 Tablet by mouth in the morning and 1 Tablet in the evening. 0 08/02/2023 Active Torsemide 20 MG Oral Tablet (Demadex) Take 2 Tablets by mouth in the morning and 2 Tablets in the evening. 0 08/03/2023 Active Potassium Chloride [place] ER 20 MEQ Oral Tablet Extended Release Take 1 Tablet by mouth in the morning and 1 Tablet at noon and 1 Tablet before bedtime. 0 08/03/2023 Active Spironolactone 50 MG Oral Tablet (Aldactone) Take 1 Tablet by mouth in the morning and 1 Tablet before bedtime. 0 08/03/2023 Active Lactulose 10 GM/15ML Oral Solution (Constulose) Take 45 mL by mouth in the morning and 45 mL before bedtime. For a goal of 3-4 bowls movements per day. 0 08/03/2023 Active documented as of this encounter (statuses as of 08/23/2023) Active Problems Problem Noted Date Diagnosed Date Hepatic steatosis 05/17/2022 Tobacco use 05/17/2022 Uncomplicated alcohol dependence 05/17/2022 Pulmonary nodule 05/17/2022 Subarachnoid hemorrhage 05/11/2022 documented as of this encounter (statuses as of 08/23/2023) Immunizations Name Administration Dates Next Due DT [...] (15 years old or older) No 05/11/20 Cognitive Status Response Date of Assessm ent Because of a physical, menta l, or emotional condition, do you have serious difficulty concentrating, remembering, or making decisions? (5 years old or older) No 05/11/2022 documented as of this encounter Miscellaneous Notes * Telephone Encounter - Daya Boothe MD - 08/22/2023 12:58 PM EST I put in a referral to hepatology but with what she describes I would recommend going to the ER. * Telephone Encounter - Amy Murillo LPN - 08/21/2023 3:11 PM EST Please advise. Has not been seen in office in some time. Has been in and out of hospital * Telephone Encounter - ManavgeorgianaAditi OSA - 08/18/2023 3:33 PM EST Sister in law called, patient is in liver failure, he is in [place] with his brother and sister in law, they need help getting a referral for a liver doctor, can you please call her stef, He can not lift arms, he is in bad shape, thank you documented in this encounter Plan of Treatment Scheduled Referrals Name Type Priority Associated Diagnoses Orde r Schedule HEPATOLOGY REFERRAL OP Referral Within 30 days (routine) Alcoholic liver failure (HCC) Ordered: 08/22/2023 Health Maintenance Due Date Last Done Comments Lipid Panel 1983 Pneumococcal Vaccine: Pediatrics (0 to 5 Years) and At-Risk Patients (6 to 64 Years) (1 of 2 - PCV) 1989 Depression Screening 1995 HIV Screening 1998 Hepatitis C Screening 2001 DTaP,Tdap,and Td Vaccines (8 - Td or Tdap) 12/01/2017 12/02/2007, 07/27/2000, 01/26/1988, Additional history exists COVID-19 Vaccine (3 - season) 2023 11/04/2020, 10/14/2020 Influenza Vaccine (FLU shot) (#1) 2023 Hepatitis B Completed 07/16/1998, 01/17, 12/29/1997 MENINGOCOCCAL (MENACTRA/MENVEO) Aged Out 01/31/2002 No longer eligible based on patient's age to complete this topic GARDASIL-HPV IMMUNIZATION SERIES Aged Out No longer eligible based on patient's age to complete this topic documented as of this encounter Medical Devices Implanted Type Area Technical Business Systems Analyst Device Identifier Shelf Expiration Date Model / Serial / Lot Angioseal Vip 6 Fr - [id number] Implanted:Qty : 1 on 05/11/2022 by Bandar Okeefe MD at [facility] Right: [employer] [id number] 02/16/2023 [id number] / / [id number] documented as of this encounter Visit Diagnoses Diagnosis Alcoholic liver failure (HCC)- Primary Other sequelae of chronic liver disease documented in this encounter Advance Directives Latest Code Status on File Code Status Date Activated Date Inactivated Comments Full Code 05/11/2022 10:10 AM 05/12/2022 2:24 PM Th is order reflects the patients wishes and were consensually agreed upon. Question Answer Comments Discussion of Advance Directives occurred with: Patient Does the patient have a Living Will? No Does the patient have Health Care Power of Commercial Solar Sales Consultant? No Care Teams Ammunition And Explosives Handler Relationship Specialty Start Date End Date Hannah Albrecht DO [address] [place] [address] PCP - General Family Medicine 07/21/21 documented as of this encounter
--- OUTSIDE RECORDS SUMMARY | 2023-09-12 07:41 | External Medical Summary | Summary of Care ---
Author Name Unknown Organization [facility] Address [address] [place] [address] Phone [phone] Care Team Providers Care Box Maker Wood Name Role Phone Hannah Albrecht DO Primary Care Provider Reason for Referral * Evaluate & Treat - Unlimited Visits (Within 30 days (routine)) - Pending Review Specialty Diagnoses / Procedures Referred By Tesfaye roche Referred To Contact Gastroenterology Diagnoses Alcoholic liver failure (HCC) Daya Boothe MD 200 [facility] [place] [address] Referral ID Status Reason Start Date Expiration Date Visits Requested Visits Authorized [id number] Pending Review Specialty Services Required 08/22/[phone] Question Answer Referral Priority Within 30 days (routine) Where should this appointment be scheduled? [facility] For what condition is the patient being referred? Liver conditions Encounter Details Date Type Department Care Team (Late st Contact Info) Description 08/18/2023 Telephone Family Practice See [facility] [place] [address] [facility] [place] [address] Hannah Albrecht DO [address] [facility] [place] [address] Allergies Active Allergy Reactions Criticality Noted Date [...] this encounter Medical Devices Implanted Type Area Camp Nurse Device Identifier Shelf Expiration Date Model / Serial / Lot Angioseal Vip 6 Fr - [id number] Implanted:Qty : 1 on 05/11/2022 by Bandar Okeefe MD at [facility] Right: [email or web address] [id number] 02/16/2023 [id number] / / [id number] documented as of this encounter Visit Diagnoses [...] the patient have Health Care Power of Yarn Wrapper? No Care Teams Box Maker Wood Relationship Specialty Start Date End Date Hannah Albrecht DO [address] [place] [address] PCP - General Family Medicine 07/21/21 documented as of this encounter
--- OUTSIDE RECORDS SUMMARY | 2023-09-12 07:41 | External Medical Summary | Summary of Care ---
Author Name Unknown Organization [facility] Address [address] [place] [address] Phone [phone] Care Team Providers Care Cryptologic Technician Technical Name Role Phone Hannah Albrecht DO Primary Care Provider Reason for Referral * Evaluate & Treat - Unlimited Visits (Within 30 days (routine)) - Pending Review Specialty Diagnoses / Procedures Referred By Tesfaye roche Referred To Contact Gastroenterology Diagnoses Alcoholic liver failure (HCC) Daya Boothe MD 200 [facility] [place] [address] Referral ID Status Reason Start Date Expiration Date Visits Requested Visits Authorized [id number] Pending Review Specialty Services Required 08/22/[phone] Question Answer Referral Priority Within 30 days (routine) Where should this appointment be scheduled? [facility] For what condition is the patient being referred? Liver conditions Encounter Details Date Type Department Care Team (Late st Contact Info) Description 08/18/2023 Telephone Family Practice See [facility] [place] [address] [facility] [place] [address] Hannah Albrecht DO 200 [facility] [place] [address] Allergies Active Allergy Reactions Criticality Noted Date Comments Cat Dander Other (Please comment) 07/21/2021 Watery eyes and sneezing documented as of this encounter (statuses as of 08/22/2023) Medications Medication Sig Dispensed Refills Start Date [...] as of this encounter (statuses as of 08/22/2023) Active Problems Problem Noted Date Diagnosed Date Hepatic steatosis 05/17/2022 Tobacco use 05/17/2022 Uncomplicated alcohol dependence 05/17/2022 Pulmonary nodule 05/17/2022 Subarachnoid hemorrhage 05/11/2022 documented as of this encounter (statuses as of 08/22/2023) Immunizations Name Administration Dates Next Due DT [...] this encounter Medical Devices Implanted Type Area Manager Contact Device Identifier Shelf Expiration Date Model / Serial / Lot Angioseal Vip 6 Fr - [id number] Implanted:Qty : 1 on 05/11/2022 by Bandar Okeefe MD at [facility] Right: [id number] [id number] 02/16/2023 [id number] / / [id number] documented as of this encounter Visit Diagnoses [...] the patient have Health Care Power of Youth Liaison Officer? No Care Teams Cryptologic Technician Technical Relationship Specialty Start Date End Date Hannah Albrecht DO [address] [place] [address] PCP - General Family Medicine 07/21/21 documented as of this encounter
--- OUTSIDE RECORDS SUMMARY | 2023-09-12 07:41 | External Medical Summary | Summary of Care ---
Author Name Unknown Organization [facility] Address [address] [place] [address] Phone [phone] Care Team Providers Care Ground Crewman Aircraft Support Name Role Phone Hannah Albrecht DO Primary Care Provider Reason for Referral * Evaluate & Treat - Unlimited Visits (Within 30 days (routine)) - Pending Review Specialty Diagnoses / Procedures Referred By Tesfaye roche Referred To Contact Gastroenterology Diagnoses Alcoholic liver failure (HCC) Daya Boothe MD [address] [facility] [place] [address] Referral ID Status Reason Start Date Expiration Date Visits Requested Visits Authorized [id number] Pending Review Specialty Services Required 08/22/[phone] Question Answer Referral Priority Within 30 days (routine) Where should this appointment be scheduled? [facility] For what condition is the patient being referred? Liver conditions Encounter Details Date Type Department Care Team (Late st Contact Info) Description 08/18/2023 Telephone Family Practice See [facility] [place] [address] [facility] [place] [address] Hannah Albrecht DO [address] [facility] [place] [address] Allergies Active Allergy Reactions Criticality Noted Date Comments Cat Dander Other (Please comment) 07/21/2021 Watery eyes and sneezing documented as of this encounter (statuses as of 09/08/2023) Medications Medication Sig Dispensed Refills Start Date [...] as of this encounter (statuses as of 09/08/2023) Active Problems Problem Noted Date Diagnosed Date Hepatic steatosis 05/17/2022 Tobacco use 05/17/2022 Uncomplicated alcohol dependence 05/17/2022 Pulmonary nodule 05/17/2022 Subarachnoid hemorrhage 05/11/2022 documented as of this encounter (statuses as of 09/08/2023) Immunizations Name Administration Dates Next Due DT [...] encounter Miscellaneous Notes * Telephone Encounter - Renée Mcmullen OSA - 09/08/2023 11:50 AM EDT LMOM 09/08/2023 RMK * Telephone Encounter - Daya Boothe MD [...] out of hospital * Telephone Encounter - Aditi Rosas OSA - 08/18/2023 3:33 PM EST Sister [...] 01/[birth year]1988, Additional history exists COVID-19 Vaccine ( season) 2023 11/04/2020, 10/14/2020 Influenza Vaccine (FLU shot) (#1) 2023 Hepatitis B Completed 07/16/1998, 01/17, 12/29/1997 MENINGOCOCCAL (MENACTRA/MENVEO) Aged Out 01/31/2002 No longer eligible based on patient's age to complete this topic GARDASIL-HPV IMMUNIZATION SERIES Aged Out No longer eligible based on patient's age to complete this topic documented as of this encounter Medical Devices Implanted Type Area Oracle Applications Developer Device Identifier Shelf Expiration Date Model / Serial / Lot Angioseal Vip 6 Fr - [id number] Implanted:Qty : 1 on 05/11/2022 by Bandar Okeefe MD at [facility] Right: [employer] [id number] 02/16/2023 [id number] / / [id number] documented as of this encounter Visit Diagnoses [...] the patient have Health Care Power of Shake Sawyer? No Care Teams Ground Crewman Aircraft Support Relationship Specialty Start Date End Date Hannah Albrecht DO [address] [place] [address] PCP - General Family Medicine 07/21/21 documented as of this encounter
[2023-09-12] MEDS: ACETAMINOPHEN 500 MG TAB PO PRN (07:47)
[2023-09-12] MEDS: POTASSIUM CHLORIDE CRTAB 20 MEQ TABCR PO SCH (07:49)
[2023-09-12] MEDS: FOLIC ACID 1 MG TAB PO SCH (07:50)
[2023-09-12] MEDS: PANTOprazole 40 MG TAB PO SCH (07:51)
[2023-09-12] MEDS: THIAMINE HCL 100 MG TAB PO SCH (07:51)
[2023-09-12] MEDS: guaiFENesin 600 MG TABCR PO SCH (07:52)
[2023-09-12 08:56] LABS: Albumin Level 3.4 gm/dl (3.4-5.0); Bilirubin,Total 0.7 mg/dl (0.2-1.0); Total Protein 7.2 gm/dl (6.0-8.3)
[2023-09-12] MEDS ORDERED: LIDOCAINE 5% 1 PATCH TD SCH (09:00)
[2023-09-12 10:11] LABS: INR 1.1 (0.9-1.1); Prothrombin Time 11.5 Seconds (9.0-12.0)
--- NOTE | 2023-09-12 12:14 | Ultrasound Report ---
ULTRASOUND-GUIDED RIGHT THORACENTESIS CLINICAL HISTORY: Loculated right pleural effusion COMPARISON STUDY: Chest CT dated 09/11/2023. PROCEDURE: Procedure and risks were explained. Informed consent was obtained. A final timeout was com pleted. The right posterior thorax was prepped and draped in sterile fashion. 1% buffered lidocaine w as utilized for skin anesthesia. Utilizing ultrasound guidance, a 5 Bruneian safety centesis catheter was advanced into the right pleura l effusion. Ultrasound images were obtained. 400 mL of chuy color fluid was removed and sent to lab for analysis. The catheter was removed and Band-Aid applied. The patient tolerated the procedure well . Post ultrasound scanning demonstrates a loculated right pleural effusion remains. A chest x-ray emiliana l be performed post procedure and vital signs will be monitored on the floor. IMPRESSION: Right thoracentesis as above. Loculated right pleural effusion remains. Performed, dictated, and signed by Bandar Erazo PA-C; to be co-signed by Dr. Will Townsend. Electronically signed by: Will Townsend M.D. 09/12/2023 1:04 PM
--- NOTE | 2023-09-12 12:19 | XRay Report ---
XR chest 1V not portable CLINICAL HISTORY: s/p rt thora TECHNIQUE: Single frontal radiograph of the chest was obtained. Comparison: Comparison is made to chest radiograph 09/11/2023 FINDINGS: No lines and tubes are seen. The cardiomediastinal silhouette is normal. The lungs are clear. Small r ight pleural effusion is seen. No pneumothorax. IMPRESSION: Small right pleural effusion remains status post right thoracentesis. No evidence of pneumothorax. ACT 112: Negative or not required by law. Electronically signed by: Albert Sharp M.D. 09/12/2023 12:18 PM
--- NOTE | 2023-09-12 13:01 | Electrocardiogram Report ---
Test Reason : Blood Pressure : / mmHG Vent. Rate : 096 BPM Atrial Rate : 096 BPM P-R Int : 126 ms QRS Dur : 092 ms QT Int : 354 ms P-R-T Axes : 051 009 042 degrees QTc Int : 447 ms Normal sinus rhythm Incomplete right bundle branch block Borderline ECG When compared with ECG of 15-AUG-2023 14:05, No significant change was found Confirmed by Brady Markham ([id number]) on 09/12/2023 1:00:48 PM Referred By: REFERRED SELF Confirmed By:Brady Markham
[2023-09-12 13:08] LABS: Total Protein Pleural Fluid 4.6 gm/dl
[2023-09-12 14:13] LABS: Appearance Pleural Fluid Hazy; Color Pleural Fluid Amber; Eosinophils, Fluid 1 %; Lymphocytes, Fluid 13 %; Mono,Macrophage,Mesothelial 24 %; Neutrophils, Fluid 62 %; RBC Pleural Fluid Auto 30000 /uL; Source Pleural Fluid Right Lung; WBC Pleural Fluid Auto 9834 /uL
--- NOTE | 2023-09-12 14:30 | Communication Note ---
Date of Service: September 12, 2023 Patient was seen and examined at bedside. 38-year-old male with PMH of alcoholic cirrhosis, gastritis, alcohol withdrawal seizures, SAH, intracranial aneurysm, chronic hyponatremia, emphysema, ongoing alcohol/tobacco abuse, chronic anemia [baseline hemoglobin of 9], medical noncompliance presented with complaint of 3 weeks history of pleuritic right-si ded chest pain & " kidney pain" per patient. He reported being unable to cough a lot because of pain, but cough productive of milky white sputum. He denied any fever or chills. He denied any pain or burning with passing urine. He denies any trouble swallowing or aspiration. He is being managed for the following: Right sided pneumonia Loculated right pleural effusion Rt sided lower rib fracture Rt sided lower rib cage / flank pain: likely 2/2 rib # and pleuritic chest pain. Patient coming in with right-sided chest pain, cough productive of milky white sputum. Denies fever. Reported SOB. Admitting parameters: WBC WNL, procalcitonin elevated at 0.54, patient afebrile, on room air. Admitting CXR with right mid and lower lung airspace opacity. Small right p leural effusion. Admitting CTAP noted same airspace opacity and pleural effusion on the right. No other acute findings. Admitting CTA chest with no PE, right lung base airspace opacity associated with loculated right pleural effusion. Subacute fracture of posterior ninth rib and old fracture of posterior 10th rib on the right noted. Patient is a started on Unasyn 09/11, continue. Status post right pleural tap -400 mL fluid taken out, follow pleural cx and studies. Follow-up CXR with no pneumothorax. Pulmonology on board, await recommendations. Chronic hyponatremia ISO alcohol abuse and alcoholic cirrhosis: Admitting sodium of 125, slowly improving to 130. Increase protein content in diet, low-sodium diet. Continue to monitor. Free fluid restriction. alcohol abuse: AWSS protocol. Multivitamins, thiamine, folic acid, telemetry monitoring. DT precaution tobacco abuse: Nicotine patch. Encourage quitting drinking and smoking. Other chronic medical conditions: Continue with/resume home meds as and when able. History COPD hx SAH, intracranial aneurysm chronic anemia ongoing alcohol/ tobacco abuse DVT prophylaxis. SCDs Re: history SAH Full code Text document was generated using [employer] voice recognition software. It may contain grammatical or spelling errors. Kindly contact undersigned for clarification of any documentation item in question.
[2023-09-13 07:12] LABS: Hematocrit (blood only) 26.7 % (42.0-52.0); Mean Corpuscular Hemoglobin 33.8 pg (25.0-34.0); Mean Corpuscular Hgb Conc 33.7 g/dL (32.0-36.0); Mean Corpuscular Volume 100.4 fL (80.0-100.0); Mean Platelet Volume 8.2 fL (9.4-12.4); Platelet Count 433 K/uL (130-400); RDW Coefficient of Variation 13.8 % (11.5-14.5); RDW Standard Deviation 50.6 fL (36.4-46.3); Red Blood Count 2.66 M/uL (4.70-6.10)
--- NOTE | 2023-09-13 07:14 | Pulmonology Progress Note ---
Date of Service September 13, 2023 Assessment & Plan (1) Right lower lobe pneumonia: (2) Tobacco use: (3) Pleural effusion: (4) Pleuritic chest pain: Plan CT chest 09/11/2023 personally reviewed: Small to moderate right-sided pleural effusion with dependent atelectasis Paraseptal emphysema appreciated bilaterally especially on the right side No significant mediastinal lymphadenopathy -- Right-sided pleural effusion Etiology is not clear Parapneumonic is a possibility Procalcitonin 0.54, BNP 111 Nasal MRSA negative S/p thoracentesis 09/12/2023, exudative, 400 mL sero-sanguinous removed, neutrophilic Pleural fluid: LDH 388, protein 4.6, pH 7.43 Serum: LDH 125, protein 7.2 --Right-sided rib fractures Subacute Continue with pain management --Active smoker [id number] smoking history Positive quitting explained the patient in depth --History of SBP on peritoneal fluid 07/31/2023 Patient did not have pleural fluid on CT abdomen pelvis 07/28/2023 and even on chest x-ray 08/15/2023 Plan: Continue with antibiotics Incentive spirometer will be beneficial Follow-up culture of the pleural fluid Case was discussed with Dr. Encinas Please note the above document was generated using voice recognition software. It may contain grammatical, syntax or spelling errors.Any formal questions or concerns about the content, text or information contained within the body of this dictation should be directly addressed to the provider for clarification. Admission and Anticipated Discharge Date Admission Date: September 12, 2023 Subjective Patient seen and examined at bedside. No acute distress. No adverse events overnight He was more calm than when I saw him in the ER yesterday Said that the pain is better controlled. He was saturating 92% on room air at the time of examination with heart rate in the high 80s Denies any hemoptysis. Fair appetite, no nausea or vomiting Review of Systems 2 Review of Systems: All systems reviewed & are unremarkable except as noted in Subjective Physical Exam 2 Physical Exam: Constitutional: No acute distress HEENT: EOMI, PERRLA Respiratory system: Decreased air entry bilaterally, more decreased on the right side, no wheeze, no rhonchi, mild crackles bilaterally CVS: S1-S2 positive, no murmurs or gallops Abdomen: Soft, nontender, nondistended, positive bowel sounds x4 Extremities: +2 pulses bilaterally radialis/ dorsalis pedis, no cyanosis, no edema Neuro: Awake alert oriented x3 Psych: Normal mood and affect G/U: No Mabry Skin: Tattoos all over the body Skin: no rashes, warm and dry Lymphatic: no cervical or axillary lymphadenopathy Results & Data Results & Data Vital Signs (Past 12 Hours) Vital Signs Temp Pulse Pulse Resp BP Pulse Ox O2 Del Method 09/13/23 04:02 36.5 C 85 20 107/65 93 Room Air 09/12/23 23:56 36.7 C 106 H 20 119/69 92 Room Air 09/12/23 21:59 84 09/12/23 20:00 Room Air 09/12/23 19:48 36.8 C 97 H 20 120/78 93 Room Air Laboratory Results 09/13/23 06:58 PG Care Time/CCT Total # of Minutes Spent Total Time Spent with Patient: Total time spent is greater than 50% in coordination of care (as documented) at patient's floor/unit and/or counseling patient: Coding Level of Care Code 65201 SUB INP/OBS CARE 3/50MIN Diagnoses Right lower lobe pneumonia J18.9 Tobacco use Z72.0 Pleural effusion J90 Pleuritic chest pain R07.81
[2023-09-13 07:37] LABS: Anion Gap 7 (3-11); BUN Creatinine Ratio 8.1 (10-20); Blood Urea Nitrogen 3 mg/dl (6-23); Calcium 9.4 mg/dl (8.6-10.3); Carbon Dioxide 27 mmol/L (21-32); Chloride 99 mmol/L (98-107); Est GFR (African American) > 150.0 ml/min; Est GFR (Non-African American) > 150.0 ml/min; Glucose 88 mg/dl (70-99(Fasting)); Magnesium 1.9 mg/dl (1.7-2.4); Phosphorus 4.6 mg/dl (2.5-4.9); Potassium 4.2 mmol/L (3.5-5.1); Sodium 133 mmol/L (136-145)
--- NOTE | 2023-09-13 08:28 | XRay Report ---
XR chest 1V portable CLINICAL HISTORY: f/u COMPARISON STUDY: Chest CT September 11, 2023. Chest radiograph September 12, 2023. FINDINGS: There is no pneumothorax. A small right pleural effusion is present. Right lower lung opaci ty is present. Linear right midlung density favors atelectasis. Cardiomediastinal silhouette is stabl e. Appearance of the chest has not significantly changed. IMPRESSION: 1. No pneumothorax. 2. No significant change in a small right pleural effusion with right basilar opacity. ACT 112: Negative or not required by law. Electronically signed by: Octavio Montes M.D. 09/13/2023 8:27 AM
--- NOTE | 2023-09-13 14:45 | Hospitalist Progress Note ---
Date of Service September 13, 2023 Assessment & Plan (1) Hyponatremia: Plan: Mr. Amin is a 38-year-old male with PMH of alcoholic cirrhosis, gastritis, alcohol withdrawal seizures, SAH, intracranial aneurysm, chronic hyponatremia, emphysema, ongoing alcohol/tobacco abuse, chronic anemia [baseline hemoglobin of 9], medical noncompliance presented with complaint of 3 weeks history of pleuritic right-sided chest pain & " kidney pain" per patient. He reported being unable to cough a lot because of pain, but cough productive of milky white sputum. He denied any fever or chills. He denied any pain or burning with passing urine. He denies any trouble swallowing or aspiration. He is being managed for the following: #Community Acquired pneumonia, c/f parapnemuonic effusion #Right pleural effusion, exudative s/p thoracentesis 09/11 with 400ml fluid -Will continue with Unasyn, add doxy plan to continue abx for 5-7 days upon discharge Discuss diuretics with nephrology #Right rib fractures -pain management #Chronic hyponatremia #Hypokalemia Baseline sodium level appears to be around high 120s to low 130s Prior NA as low as 109 without diuertics iso decompensated liver cirrhosis, beer potomania, poor solute Diuretics held on admission; however given history, will consult nephrology for appropriateness of resuming diuretics Home regimen torsemide 40 mg BID and Aldactone 50 mg BID, discuss resumption with nephrology #History of Melena/UGI bleed ISO alcoholic cirrhosis: Melena Noted 07/30 evening. Hemoglobin dropped to 7.5. Follow H&H closely, transfuse for hemoglobin less than 7 or symptomatic anemia. Hemoglobin stable around 8. Status post EGD 08/01/2023 biopsies taken, follow-up. Normal duodenum and esophagus. Gastritis noted. Needs OP GI follow up #Cirrhosis 2/2 EtOH, history of decompensation #Recurrent Ascites #Prior SBP - MELD-Na: [7] on admission - Last EGD 08/01, no EV, gastritis antrum - PSE: No evidence of HE on exam - Ascites: c/w Torsemide 40mg BID :Rumsey 50mg BID; held Consulted IR s/p paracentesis 07/31 1.5L removed, cell count 5604 K - SBP: treated for SBP 07/2023 with cipro - EV: No evidence EV -Continue PPI for gastritis - HRS: Cr at baseline Encouraged GI follow up -Declines any discussion for transplant, advanced options, or resources #Alcohol abuse and dependence: reports abstinence since completing rehab program. AWSS protocol. Thiamine and folic acid. Other chronic medical conditions: Continue with/resume home meds as and when able SAH, intracranial aneurysm emphysema as per records, symptoms at baseline chronic anemia, hemoglobin at baseline ongoing alcohol/ tobacco abuse: Cessation encouraged and highly recommended. Nicotine patch as needed. Dispo likely tomorrow contingent on fevers, SCDs Admission and Anticipated Discharge Date Admission Date: September 12, 2023 Subjective Reports pain from thoracentesis, but improved since yesterday Denies chest pain or abdominal pain, reports feeling angry about "situation" and need to "get out of hospital" Discussed staying one more day to solidify plan Results & Data Results & Data Vital Signs (Past 12 Hours) Vital Signs Temp Pulse Pulse Resp BP BP Pulse Ox 09/13/23 11:29 37.6 C H 98 H 18 135/77 94 09/13/23 08:00 62 09/13/23 08:00 09/13/23 07:53 37 C 88 18 110/67 93 09/13/23 04:02 36.5 C 85 20 107/65 93 O2 Del Method 09/13/23 11:29 Room Air 09/13/23 08:00 09/13/23 08:00 Room Air 09/13/23 07:53 Room Air 09/13/23 04:02 Room Air Laboratory Results Short CBC 09/13/23 Range/Units 06:58 WBC 7.90 (4.8-10.8) K/ul Hgb 9.0 L (14.0-18.0) g/dl Hct 26.7 L (42.0-52.0) % Plt Count 433 H (130-400) K/uL BMP 09/12/23 09/13/23 14:11 06:58 Sodium 130 L 133 L Potassium 4.2 D Chloride 99 Carbon Dioxide 27 BUN 3 L Creatinine 0.37 L Glucose 88 Calcium 9.4 Medications Administered Home Medications Medication Instructions Recorded Confirmed Last Taken acetaminophen 500 mg tablet 500 mg PO Q6H PRN PAIN/FEVER 07/28/23 09/11/23 07/28/23 torsemide 20 mg tablet 40 mg (2 x 20 mg) PO BID17 #60 tabs 08/02/23 09/11/23 09/11/23 folic acid 1 mg tablet 1 mg PO QAM 09/11/23 09/11/23 09/11/23 guaifenesin 600 mg tablet, 600 mg PO BID 09/11/23 09/11/23 09/11/23 08:00 extended release 12 hr (Mucinex) hydrocodone 5 mg-acetaminophen 325 1 tab PO Q6H PRN Pain, Moderate 09/11/23 09/11/23 Unknown mg tablet lidocaine 4 % topical patch 1 patch topical DAILY PRN Pain 09/11/23 09/11/23 Unknown naloxone 4 mg/actuation nasal spray 4 mg intranasal DIRECTED PRN 09/11/23 09/11/23 Unknown OVERDOSE pantoprazole 40 mg tablet,delayed 40 mg PO QAM 09/11/23 09/11/23 09/11/23 release potassium chloride 20 mEq 20 meq PO TIDM 09/11/23 09/11/23 09/11/23 tablet,extended release(part/cryst) thiamine HCl (vitamin B1) 100 mg 100 mg PO QAM 09/11/23 09/11/23 09/11/23 tablet Active Medications Generic Name Dose Route Start Last Admin Trade Name Freq PRN Reason Stop Dose Admin Acetaminophen 500 mg 09/12/23 00:44 09/13/23 03:15 Acetaminophen 500 Mg Tab PO 10/12/23 00:43 500 mg Q6H PRN Administration fever/pain Folic Acid 1 mg 09/12/23 09:00 09/13/23 08:47 Folic Acid 1 Mg Tab PO 10/12/23 08:59 1 mg QAM MEMO Administration Guaifenesin 600 mg 09/12/23 09:00 09/13/23 08:46 Guaifenesin 600 Mg Tabcr PO 10/12/23 08:59 600 mg BID MEMO Administration Ampicillin Sodium/Sulbactam 100 mls @ 100 mls/hr 09/12/23 06:00 09/13/23 13:40 Sodium 3,000 mg/ Sodium IV 09/19/23 05:59 Infused Chloride Q6H MEMO Infusion Lidocaine 1 patch 09/12/23 01:45 09/12/23 21:14 Lidocaine 5% 1 Patch TD 10/12/23 01:44 1 patch HS MEMO Administration Miscellaneous 1 each 09/12/23 12:00 09/13/23 08:46 Remove Lidoderm Patch N/A 10/12/23 11:59 1 each DAILY@0900 MEMO Administration Miscellaneous 1 each 09/13/23 08:59 09/13/23 08:46 Remove Nicoderm Patch N/A 10/12/23 08:58 1 each DAILY@0859 MEMO Administration Morphine Sulfate 2 mg 09/12/23 03:31 09/12/23 16:29 Morphine Sulfate 2 Mg/Ml Carp IV 09/26/23 03:30 2 mg Q4H PRN Administration Pain Nicotine 14 mg 09/12/23 01:50 09/13/23 08:43 Nicotine 14 Mg/24 Hr Patch TD 10/12/23 01:49 14 mg QAM MEMO Administration Oxycodone HCl 5 - 10 mg 09/12/23 03:31 09/13/23 14:22 Oxycodone Hcl Ir 5 Mg Tab (Immediate Release) PO 09/26/23 03:30 10 mg QID PRN Administration Pain Pantoprazole Sodium 40 mg 09/12/23 09:00 09/13/23 08:46 Pantoprazole 40 Mg Tab PO 10/12/23 08:59 40 mg QAM MEMO Administration Potassium Chloride 20 meq 09/12/23 08:00 09/13/23 12:08 Potassium Chloride Crtab 20 Meq Tabcr PO 10/12/23 07:59 20 meq TIDM MEMO Administration Thiamine HCl 100 mg 09/12/23 09:00 09/13/23 08:45 Thiamine Hcl 100 Mg Tab PO 10/12/23 08:59 100 mg QAM MEMO Administration
--- NOTE | 2023-09-13 15:29 | Communication Note ---
Date of Service: September 13, 2023 Pulmonary addendum: I did have Bedside ultrasound on the patient to see how the right pleural effusion looks like It seems the patient has significant loculated effusion on the right side. It is unlikely that this will resolve on its own. Patient did have SBP in July 2023 and he was given ciprofloxacin to be taken but he was not able to afford it and he did not take the antibiotics. The possibility of it being spontaneous bacterial is low but still there. Gram stain of the fluid is negative to date. I gave the patient option of either chest tube drainage with mist 2 protocol for which he needs to be in the hospital for at least 3 days minimum. VATS procedure for which she will need to be transferred to a different place. He was asking whether he can get a trial of antibiotics to be taken and if his not doing well to have VATS procedure scheduled as an outpatient or outpatient follow-up with done well. That is a possibility although not recommended given that he is still spiking fever and history of noncompliance with antibiotics Case was discussed with primary team. Please note the above document was generated using voice recognition software. It may contain grammatical, syntax or spelling errors.Any formal questions or concerns about the content, text or information contained within the body of this dictation should be directly addressed to the provider for clarification. Coding Level of Care Code None
--- NOTE | 2023-09-13 15:31 | Procedure Note ---
Procedure Note Date of Service September 13, 2023 Note Bedside Ultrasound: Lung: Right:-Small right-sided pleural effusion with significant loculations. B-lines in the atelectatic lung. A lines anteriorly Left:-Minimal right-sided pleural effusion, B-lines appreciated posteriorly, a lines anterior Please note the above document was generated using voice recognition software. It may contain grammatical, syntax or spelling errors.Any formal questions or concerns about the content, text or information contained within the body of this dictation should be directly addressed to the provider for clarification. Coding CPT Codes Pulmonary/Thoracic - Pulmonary and Thoracic: 37793 US, Chest, real time with imaging documentation ([id number]) [facility] [place] Codes (Charges) Pulmonary/Thoracic Procedure 1: Pulmonary and Thoracic: 44793 US, Chest, real time with imaging documentation
[2023-09-13] MEDS: DOXYCYCLINE HYCLATE 100 MG in DEXTROSE 5% MINI-B 100 ML IV SCH (15:37)
[2023-09-14 07:03] LABS: Hematocrit (blood only) 26.1 % (42.0-52.0); Hemoglobin 8.6 g/dl (14.0-18.0); Mean Corpuscular Hemoglobin 33.2 pg (25.0-34.0); Mean Corpuscular Volume 100.8 fL (80.0-100.0); Mean Platelet Volume 8.4 fL (9.4-12.4); Platelet Count 462 K/uL (130-400); RDW Coefficient of Variation 14.2 % (11.5-14.5); RDW Standard Deviation 51.8 fL (36.4-46.3); Red Blood Count 2.59 M/uL (4.70-6.10); White Blood Count 9.34 K/ul (4.8-10.8)
--- NOTE | 2023-09-14 07:26 | Pulmonology Progress Note ---
Date of Service September 14, 2023 Assessment & Plan (1) Right lower lobe pneumonia: (2) Tobacco use: (3) Pleural effusion: (4) Pleuritic chest pain: Plan CT chest 09/11/2023 personally reviewed: Small to moderate right-sided pleural effusion with dependent atelectasis Paraseptal emphysema appreciated bilaterally especially on the right side No significant mediastinal lymphadenopathy -- Right-sided pleural effusion Etiology is not clear Parapneumonic is a possibility Procalcitonin 0.54, BNP 111 Nasal MRSA negative S/p thoracentesis 09/12/2023, exudative, 400 mL sero-sanguinous removed, neutrophilic Bedside ultrasound 09/13/2023: Significant loculated effusion on the right side. It is unlikely that this will resolve on its own. Patient did have SBP in July 2023 and he was given ciprofloxacin to be taken but he was not able to afford it and he did not take the antibiotics. The possibility of it being spontaneous bacterial is low but still there. Gram stain of the fluid is negative to date. Pleural fluid: LDH 388, protein 4.6, pH 7.43 Serum: LDH 125, protein 7.2 --Right-sided rib fractures Subacute Continue with pain management --Active smoker [id number] smoking history Positive quitting explained the patient in depth --History of SBP on peritoneal fluid 07/31/2023 Patient did not have pleural fluid on CT abdomen pelvis 07/28/2023 and even on chest x-ray 08/15/2023 I gave the patient option of either chest tube drainage with mist 2 protocol for which he needs to be in the hospital for at least 3 days minimum. VATS procedure for which she will need to be transferred to a different place Plan: Continue with antibiotics, addition of doxycycline has been made. I again discussed the options regarding the loculated right-sided pleural effusion. Patient wants to take antibiotics rather than have any intervention done if there is no improvement that he would like to do VATS. Would recommend minimum 14 days of antibiotics. There has been instances of noncompliance with antibiotics. I made the patient aware how important it is for him to be compliant with antibiotics Incentive spirometer will be beneficial Follow-up culture of the pleural fluid Case was discussed with Dr. Encinas Please note the above document was generated using voice recognition software. It may contain grammatical, syntax or spelling errors.Any formal questions or concerns about the content, text or information contained within the body of this dictation should be directly addressed to the provider for clarification. Admission and Anticipated Discharge Date Admission Date: September 12, 2023 Subjective Patient seen and examined at bedside. No acute distress, no adverse events overnight He says that he is feeling better compared to yesterday. Still complains of mild chest discomfort when he takes a deep breath on the right side. He was saturating 99% on room air with heart rate in the high 90s. No nausea or vomiting. Fair appetite Did spike fever with Tmax 37.9 Review of Systems 2 Review of Systems: All systems reviewed & are unremarkable except as noted in Subjective Physical Exam 2 Physical Exam: Constitutional: No acute distress HEENT: EOMI, PERRLA Respiratory system: Decreased air entry bilaterally, more decreased on the right side, no wheeze, no rhonchi, mild crackles bilaterally CVS: S1-S2 positive, no murmurs or gallops Abdomen: Soft, nontender, nondistended, positive bowel sounds x4 Extremities: +2 pulses bilaterally radialis/ dorsalis pedis, no cyanosis, no edema Neuro: Awake alert oriented x3 Psych: Normal mood and affect G/U: No Mabry Skin: Tattoos all over the body Skin: no rashes, warm and dry Lymphatic: no cervical or axillary lymphadenopathy Results & Data Results & Data Vital Signs (Past 12 Hours) Vital Signs Temp Pulse Pulse Resp BP Pulse Ox O2 Del Method 09/14/23 04:17 37.0 C 104 H 20 127/86 91 Room Air 09/13/23 23:56 37.2 C 106 H 20 112/71 92 Room Air 09/13/23 23:25 101 H 09/13/23 20:17 36.8 C 106 H 20 107/64 95 Room Air Laboratory Results 09/14/23 06:24 PG Care Time/CCT Total # of Minutes Spent Total Time Spent with Patient: Total time spent is greater than 50% in coordination of care (as documented) at patient's floor/unit and/or counseling patient: Coding Level of Care Code 86318 SUB INP/OBS CARE 2/35MIN Diagnoses Right lower lobe pneumonia J18.9 Tobacco use Z72.0 Pleural effusion J90 Pleuritic chest pain R07.81
[2023-09-14 07:31] LABS: Alanine Aminotransferase 12 U/L (7-52); Albumin Globulin Ratio 0.9 (0.9-2); Alkaline Phosphatase 130 U/L (34-104); Anion Gap 6 (3-11); Aspartate Aminotransferase 17 U/L (13-39); BUN Creatinine Ratio 7.1 (10-20); Bilirubin,Total 0.6 mg/dl (0.2-1.0); Blood Urea Nitrogen 3 mg/dl (6-23); Calcium 8.9 mg/dl (8.6-10.3); Carbon Dioxide 25 mmol/L (21-32); Chloride 102 mmol/L (98-107); Est GFR (African American) > 150.0 ml/min; Est GFR (Non-African American) 145.6 ml/min; Globulin 3.4 gm/dl (2.5-4.0); Glucose 90 mg/dl (70-99(Fasting)); Magnesium 1.7 mg/dl (1.7-2.4); Potassium 3.8 mmol/L (3.5-5.1); Sodium 133 mmol/L (136-145); Total Protein 6.4 gm/dl (6.0-8.3)
[2023-09-14 07:46] VITALS: RESP 16
[2023-09-14 08:07] LABS: Codeine Urine NEGATIVE ng/mL (<50); Hydrocodone Urine 603 ng/mL (<50); Hydromor Urine NEGATIVE ng/mL (<50); Morphine Urine NEGATIVE ng/mL (<50); Norhydrocodone Conf Ur 478 ng/mL (<50); Noroxycodone Urine NEGATIVE ng/mL (<50); Oxycodone Urine NEGATIVE ng/mL (<50); Oxymorph Urine NEGATIVE ng/mL (<50)
--- NOTE | 2023-09-14 08:23 | Nephrology Consultation ---
Date of Consultation September 14, 2023 Assessment & Plan (1) Electrolyte and fluid disorder: chronic ascites d/t advanced alchoholic liver disease, c/b chronic hyponatremia and hypokalemia >> appears well compensated on exam today. w/ 2 syncopal episodes at least in past month, one resulting in injury /rib frx though denies presyncopal/orthostatic sx. 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 History of Present Illness Reason for Consultation: assist w/ diuresis Requesting Physician: Dr Encinas Attending Physician: Yudelka Encinas MD History of Present Illness 38 y/o M whom I'm asked to see to assist w/ diuresis was admitted 09/11 for R sided pneumonia w/ loculated pleural effusion and worsening chronic hyponatremia after presenting w/ R sided pleuritic chest pain several weeks after a fall on his R side w/ R rib fracture. PMH of EtOH abuse c/b withdrawal seizures, chronic liver disease w/ ascites and Jul 2023 SBP, chronic hyponatremia, COPD, active tobacco abuse 1 PPD, subarachnoid hemorrhage after closed head injury. He was d/c after July admission w/ rx for cipro to treat SBP but could not afford medication and so did not complete OP po therapy. He was seen in the ER here on 08/15 after a syncopal episode at work w/ negative w/u and mild hypokalemia (K 3.2); no pleural effusion or rib fracture noted at that time. Later he fell on the steps outside his house and that's when rib was fractured he states. Afterward he did inpatient EtOH rehab in [facility] about 3 wks ago. He had a R thoracentesis w/ IR 09/11 for about 400 mL chuy fluid which is neutrophilic and exudative. Pulmonary is also following and recommends VATS versus chest tube. Pt is requesting abtx first and OP VATS if needed. He had IV contrast CT studies for work up of pneumonia and effusion on 09/10; also has possible enteritis on abd CT. His presenting sodium was 125 at 1999 on 09/10; it is 133 today. he takes torsemide . He is prescribed 40 mg bid17 as an OP. he denies edema or worsening ascites or abdominal pain. no orthostatic or presyncopal sx w/ any frequency; he denies f/c (did have tMax 37.9 yesterday 1600); no rash, no new/worrisome voidng sx. ongoing cough. pleuritic pain improving. also c/o back pain. states had some R flank pain w/ at time of CT scan. no palpitations or substerna lchest pain. no n/v/d/ab dpain. worried about hosp d/c so he can work d/t a court order he states. Allergies Allergy/AdvReac Type Severity Reaction Status Date / Time No Known Allergies Allergy Verified 09/11/23 23:01 Home Medications Medication Instructions Recorded Confirmed Type acetaminophen 500 mg tablet 500 mg PO Q6H PRN PAIN/FEVER 07/28/23 09/11/23 History torsemide 20 mg tablet 40 mg (2 x 20 mg) PO BID17 #60 tabs 08/02/23 09/11/23 Rx folic acid 1 mg tablet 1 mg PO QAM 09/11/23 09/11/23 History guaifenesin 600 mg tablet, 600 mg PO BID 09/11/23 09/11/23 History extended release 12 hr (Mucinex) hydrocodone 5 mg-acetaminophen 325 1 tab PO Q6H PRN Pain, Moderate 09/11/23 09/11/23 History mg tablet lidocaine 4 % topical patch 1 patch topical DAILY PRN Pain 09/11/23 09/11/23 History naloxone 4 mg/actuation nasal spray 4 mg intranasal DIRECTED PRN 09/11/23 09/11/23 History OVERDOSE pantoprazole 40 mg tablet,delayed 40 mg PO QAM 09/11/23 09/11/23 History release potassium chloride 20 mEq 20 meq PO TIDM 09/11/23 09/11/23 History tablet,extended release(part/cryst) thiamine HCl (vitamin B1) 100 mg 100 mg PO QAM 09/11/23 09/11/23 History tablet amoxicillin 875 mg-potassium 1 tab PO BID #10 tabs 09/14/23 Rx clavulanate 125 mg tablet doxycycline hyclate 100 mg capsule 100 mg PO BID 5 days #10 caps 09/14/23 Rx Patient History Medical History Acute blood loss anemia Acute hypokalemia Acute hyponatremia Hypomagnesemia Abdominal pain Spontaneous bacterial peritonitis Abdominal ascites Seizure EtOH withdrawal 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 Hyponatremia Chronic Anemia Thrombocytopenia Alcohol withdrawal Hepatitis Tobacco use Chronic hyponatremia Alcohol use CHI (closed head injury) Surgical History No pertinent past surgical history Family History Other Multiple myeloma Social History Smoking Status: Heavy tobacco smoker Tobacco Type: Cigarettes Cigarettes Per Day: 20; Second Hand Exposure: Yes; Do You Dip or Chew Tobacco: No; Hx Alcohol Use: Yes Alcohol type: beer Hx Substance Use: No Preferred Language: Faroese Communication Ability: Effective Hearing Ability: Normal 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 Beliefs That Will Affect Care: None marital status: Single Current Living Situation: Family current occupational status: employed Feels Safe at Home: Yes Assistive Devices: None Review of Systems 2 Review of Systems: All systems reviewed & are unremarkable except as noted in HPI & below Physical Exam 2 Constitutional: well developed, average body habitus and cooperative; no acute distress Eyes: EOM intact bilaterally ENMT: Ears: no external ear abnormality Nose: no external nose abnormality Mouth: + dry oral mucous membranes Neck: no nuchal rigidity Respiratory: normal respiratory effort Auscultation: + breath sounds absent (BL bases), + diminished lung sounds and + wheezes (occasional insp) Cardiovascular: RRR, no murmur, no edema Gastrointestinal (Abdomen): Inspection/Auscultation: normal bowel sounds; abdomen not distended Percussion/Palpation: abdomen soft; abdomen nontender and no ascites Musculoskeletal: Extremities: strength 5/5 throughout Skin: no rashes, warm and dry Neurologic: alonzo, fluent speech, no tremor Psychiatric: Orientation: alert and oriented x 3 Results & Data Vital Signs (Past 12 Hours) Vital Signs Temp Pulse Pulse Resp BP Pulse Ox O2 Del Method 09/14/23 07:44 36.7 C 83 16 103/68 94 Room Air 09/14/23 07:32 95 H 09/14/23 04:17 37.0 C 104 H 20 127/86 91 Room Air 09/13/23 23:56 37.2 C 106 H 20 112/71 92 Room Air 09/13/23 23:25 101 H Laboratory Results 09/14/23 06:24 09/14/23 06:24
[2023-09-14] MEDS ORDERED: TORSEMIDE 20 MG TAB PO SCH (09:00)
[2023-09-14] MEDS: NICOTINE 21 MG/24 HR TDSY TD SCH (11:20)
[2023-09-14] MEDS: AMOXICILLIN/CLAVULANATE 875 MG TAB PO SCH (11:31)
[2023-09-14 12:07] VITALS: PULSE 89; TEMP 98.8; O2SAT 95
--- NOTE | 2023-09-14 12:34 | Discharge Summary ---
Discharge Summary Date of Service September 14, 2023 Notes For Next Care Provider Offered patient multiple chances for questions, encouraged importance of follow up and compliance. Patient brief stating "when can [he] leave" and dismissed further discussion regarding clinical status and ability to stay out of hospital Medication Changes From Visit Torsemide reduced to 10mg daily Spironolactone 12.5mg daily Doxycycline 100mg BID x 5 days Augmentin 875 BID x 5 days Potassium supplement daily Admission HPI Per Admitting Provider Medical history significant for alcoholic cirrhosis, gastritis, history alcohol withdrawal seizures, SAH, intracranial aneurysm, chronic hyponatremia, emphysema as per records, ongoing alcohol/ tobacco abuse, chronic anemia ( baseline hemoglobin 9), medical noncompliance. Recent confinement last month for acute on chronic hyponatremia, SBP, and UGIB. Initial hyponatremia of 109 attributed by nephrology to beer potomania, liver disease and poor solute intake. Patient discharged on diuretic Rx and 1.5 L fluid restriction. Gastritis noted on EGD. 3 weeks history of pleuritic right-sided chest and kidney pain. Unable to cough a lot because of pain. Cough productive of milky white sputum. No fever, no chills, some SOB. Not sure about sick contacts given employment at a local [employer]. Denies aspiration. 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 Admission Exam Per Admitting Provider GENERAL: chronically ill, looks older than stated age, no respiratory distress SKIN: Pallor, warm HEENT: Pale palpebral conjunctivae, no ptosis, dry buccal mucosa NECK : Supple, no tenderness CHEST : Decreased breath sounds, occasional expiratory wheezes, right chest wall tenderness HEART : RRR, no obvious murmurs ABDOMEN: No distention, nontender EXTREMITIES : no LE swelling, no LE tenderness, no other conspicuous deformities noted NEUROLOGIC : coherent, no facial asymmetry, no other gross focality Principal Dx & Hospital Course #1 = Principal Diagnosis (1) Hyponatremia: Mr. Amin is a 38-year-old male with PMH of alcoholic cirrhosis, gastritis, alcohol withdrawal seizures, SAH, intracranial aneurysm, chronic hyponatremia, emphysema, ongoing alcohol/tobacco abuse, chronic anemia [baseline hemoglobin of 9], medical noncompliance presented with complaint of 3 weeks history of pleuritic right-sided chest pain & " kidney pain" per patient. He reported being unable to cough a lot because of pain, but cough productive of milky white sputum. He denied any fever or chills. He denied any pain or burning with passing urine. He denies any trouble swallowing or aspiration. He is being managed for the following: #Community Acquired pneumonia, c/f parapnemuonic effusion #Right pleural effusion, exudative s/p thoracentesis 09/11 with 400ml fluid -Will continue with Unasyn, add doxy plan to continue abx for 5-7 days upon discharge -Augmentin and Doxy Discuss diuretics with nephrology -Reduced home torsemide 10mg daily -reduced home potassium 20meq daily -reduced spironolactone to 12.5 mg daily #Right rib fractures -pain management #Chronic hyponatremia #Hypokalemia Baseline sodium level appears to be around high 120s to low 130s Prior NA as low as 109 without diuertics iso decompensated liver cirrhosis, beer potomania, poor solute Diuretics held on admission; however given history, will consult nephrology for appropriateness of resuming diuretics Home regimen torsemide 40 mg BID and Aldactone 50 mg BID, discuss resumption with nephrology -Reduced regimen as above #History of Melena/UGI bleed ISO alcoholic cirrhosis: Melena Noted 07/30 evening. Hemoglobin dropped to 7.5. Follow H&H closely, transfuse for hemoglobin less than 7 or symptomatic anemia. Hemoglobin stable around 8. Status post EGD 08/01/2023 biopsies taken, follow-up. Normal duodenum and esophagus. Gastritis noted. Needs OP GI follow up #Cirrhosis 2/ EtOH, history of decompensation #Recurrent Ascites #Prior SBP - MELD-Na: [7] on admission - Last EGD 08/01, no EV, gastritis antrum - PSE: No evidence of HE on exam - Ascites: c/w Torsemide 40mg BID :Suha 50mg BID; now 10mg torsemide and 12.5mg suha Consulted IR s/p paracentesis 07/31 - SBP: treated for SBP 07/2023 with cipro, however noncompliant with full course and ppx - EV: No evidence EV -Continue PPI for gastritis - HRS: Cr at baseline Encouraged GI follow up -Declines any discussion for transplant, advanced options, or resources #Alcohol abuse and dependence: reports abstinence since completing rehab program. SS protocol. Thiamine and folic acid. Other chronic medical conditions: Continue with/resume home meds as and when able SAH, intracranial aneurysm emphysema as per records, symptoms at baseline chronic anemia, hemoglobin at baseline ongoing alcohol/ tobacco abuse: Cessation encouraged and highly recommended. Nicotine patch as needed. Patient adamant for discharge. Declined any recommendations towards chest tube v vats. Patient brief and dismissive regarding ways to help stay out of hospital, including compliance with medication adjustments, compliance with follow up appointments, etc. Discharge Exam Constitutional WD/WN, vitals as above aggressive Respiratory diminished on right side lower/middle lung can Cardiovascular RRR, no murmur, no edema Updated Medication List Medication Instructions Recorded Confirmed Type acetaminophen 500 mg tablet 500 mg PO Q6H PRN PAIN/FEVER 07/28/23 09/11/23 History folic acid 1 mg tablet 1 mg PO QAM 09/11/23 09/11/23 History guaifenesin 600 mg tablet, 600 mg PO BID 09/11/23 09/11/23 History extended release 12 hr (Mucinex) hydrocodone 5 mg-acetaminophen 325 1 tab PO Q6H PRN Pain, Moderate 09/11/23 09/11/23 History mg tablet lidocaine 4 % topical patch 1 patch topical DAILY PRN Pain 09/11/23 09/11/23 History naloxone 4 mg/actuation nasal spray 4 mg intranasal DIRECTED PRN 09/11/23 09/11/23 History OVERDOSE pantoprazole 40 mg tablet,delayed 40 mg PO QAM 09/11/23 09/11/23 History release thiamine HCl (vitamin B1) 100 mg 100 mg PO QAM 09/11/23 09/11/23 History tablet amoxicillin 875 mg-potassium 1 tab PO BID #10 tabs 09/14/23 Rx clavulanate 125 mg tablet doxycycline hyclate 100 mg capsule 100 mg PO BID 5 days #10 caps 09/14/23 Rx potassium chloride 20 mEq 20 meq PO DAILY #30 tabs 09/14/23 09/11/23 Rx tablet,extended release(part/cryst) spironolactone 25 mg tablet 12.5 mg (1/2 x 25 mg) PO DAILY #30 09/14/23 Rx tabs torsemide 10 mg tablet 10 mg PO DAILY #30 tabs 09/14/23 Rx Hospital Stay Data Consultations 09/12/23 02:15 Consult Pulmonology Routine 09/13/23 14:38 Consult Nephrology Routine Diagnostic Imagining Performed 09/11/23 22:24 CT abd pelvis IV con only Stat CT angio chest PE protocol Stat 09/12/23 11:30 IR thoracentesis wo tube US Routine 09/13/23 15:01 US point of care ultrasound Urgent Pending Results Patient Have Any Pending Studies at Discharge: No Discharge Instructions Given to Patient (Per Discharging Provider) You were admitted for right sided back pain and found to have a pleural effusion, or fluid that fills the space between your lung and chest wall. You were treated for pneumonia and fluid was removed during a procedure called thoracentesis. The fluid was concerning for possible underlying infection therefore you will continue the following antibiotics: -Augmentin 875-125 two times daily, next dose this evening (09/13) -Doxycycline 100mg two times daily, next dose this evening (09/13) Please follow up with Pulmonary to discuss if a procedure is necessary in the future to help prevent the accumulation of fluid in your lung cavity. The wireline field operator evaluated your labs and recommended the following: -Torsemide 10mg daily -Spironolactone 12.5mg daily (0.5 tablet) -Reduced your Potassium supplement to 20meq daily Please follow up as soon as possible with nephrology and gastroenterology to titrate your diuertics and watch your electrolytes to help prevent the reaccumulation of fluid. This often takes multiple visits and labs to get it stable. It also requires dietary compliance with restricting fluid as close as possible to less than 2 liters daily as well as limiting salt intake. Total Time Total Time Spent Total Time Spent (In Minutes): 45
[2023-09-14 14:28] VITALS: BP 107/65
[2023-09-14] MEDS ORDERED: DOXYCYCLINE HYCLATE 100 MG CAP PO SCH (17:00)
== END 2023-09-14 15:29 | disposition home or self-care (01) | DRG 178 ==
LOC: ED 19:31 → SUATTDRO 09-12 01:46 → EDINP 09-12 01:46 → 2N 09-12 02:15

== ENCOUNTER 2024-02-02 01:57 | Inpatient (IN) ==
--- NOTE | 2024-02-02 02:20 | Emergency Department Note ---
Impression & Plan Alcohol withdrawal, Acute hyponatremia, Acute lactic acidosis, Hypomagnesemia, Jaundice, Transaminitis ED Provider Note Name: CHARLINE PALMER Age: 39 Sex: Male Arrives Via: Ambulance Informant: Patient ED Provider: Cliff Macias MD Chief Complaint: Syncope Impression: As per impressions above Medical Decision Makin-year-old male arrives for evaluation of a syncopal like event. Notes shaky and dehydrated throughout the day at work. Syncope this evening which he attributed to withdrawal this did drink some further alcohol. Patient has a long history of alcoholism with cirrhosis previous multiple hospitalizations. On arrival patient is tremulous moderately tachycardic and having intractable dry heaves. He was given some IV Ativan followed by second dose with vast improvement. He was given IV banana bag along with some IV fluids beyond that in the setting of lactic acidosis. I do not feel this is due to severe sepsis given his chronic liver failure as more likely cause in the setting of withdrawal. Would hold off on blood cultures given no evidence of infection at this time and no need for empiric antibiotics unless concern for infection develops. Given multiple lab abnormalities hospitalization indicated. Labs consistent with acute on chronic hepatitis secondary to alcohol. While INR is mildly elevated he has been at this point before and in the setting of continued alcohol abuse I would think holding off on transfer to liver center is reasonable at this time. Discussed with hospitalist who will evaluate for further management While difficult to know for sure suspect that his syncopal event he had may have been alcohol with drawl related including seizure. He is not short of breath or significantly hypoxic on arrival thus would hold off on CT imaging of the of the chest. No headache or concerning signs symptoms requiring neuroimaging at this time. Triage/Nursing Notes reviewed by Me External Chart Review by me: 09/14/2023 discharge summary reviewed by me discussing patient's past history and previous hospitalization due to cirrhosis and pneumonia. Differential:Infection, dehydration, metabolic abnormality, hypo/hyperglycemia, electrolyte disturbance, anemia, hypoxia, cardiac sources, intracerebral event, toxicologic, neurologic, as well as other pathologies. Vital Signs: reviewed and remarkable for tachy Interventions: Ativan 1 mg IV, Ativan 2 mg IV, normal saline bolus 1 L IV, banana bag 1 L IV Labs:ED labs Reviewed by me and remarkable for extensive laboratory abnormalities see chart for full Imaging:Patient awake alert oriented no headache no neurodeficits we will hold off on neuroimaging at this time. Cardiac/Tele Monitoring: Cardiac Monitoring: An Order was placed for continuous cardiac monitoring. The monitor shows a rate of 95 with a normal sinus rhythm. Consults:Dr Mckeon of the [facility] Hospitalist service discussed with him patient and plan for their evaluation and likely hospitalization Plan: Disposition:Hospitalization. Condition: Fair History of Present Illness: 39-year-old gentleman arrives for evaluation of syncope. Patient notes that he has been feeling quite shaky throughout the day. 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 He continued having shakiness as the evening went over and he was at home when he must of had a syncopal event and woke up on the floor. He does not specifically remember passing out but when he came to is still quite shaky. He drank a twisted tea thinking that may help with the shakes and due to continued shaking he called 9 1. Patient has a long history of alcohol abuse with cirrhosis previous hospitalizations for alcohol withdrawal, seizures, SBP. Patient notes he has been doing better without drinking quite as much as he previously did. Past Medical History: Alcoholism, decompensated cirrhosis, multiple other past history Home Medications: Multivitamin Allergies: No known drug allergies Vitals:Blood Pressure: 136/70, Pulse 104, RR 26, T 36.8C, O2 94% on RA Physical Exam: GENERAL: Patient is chronically unwell appearing and in moderate distress. Recurrently dry heaving, very jaundiced RESPIRATORY: No dyspnea. Clear to auscultation and equal bilaterally. CARDIOVASCULAR: Tachycardic.No murmur appreciated. GASTROINTESTINAL: Abdomen soft, non-tender, no peritonitis. EXTREMITIES: Normal motion all extremities, no cyanosis, no edema. NEUROLOGIC: Tremulous and shaking. Alert and oriented. No focal neurologic deficits appreciated SKIN: No rash, significant jaundice, no diaphoresis. PSYCH: Appropriate GCS: 15 ED Course: Times/Reassessments: Patient much improved after second dose of IV Ativan. Agreeable to hospitalization given extensive the laboratory abnormalities and findings. Cliff Macias MD Past Med/Surg History Problem List (Updated 02/02/24 @ 05:34 by Cliff Macias MD) Acute lactic acidosis (Acute) Acute hyponatremia (Acute) Alcohol withdrawal (Acute) Volume overload Pleuritic chest pain Pleural effusion Hyponatremia (Acute) Right lower lobe pneumonia (Acute) Spontaneous bacterial peritonitis Abdominal ascites Dizziness (Acute) Hyponatremia Chronic Decompensation of cirrhosis of liver (Acute) Transaminitis (Acute) Hyperbilirubinemia Alcohol dependence (Acute) Hypophosphatemia Heme + stool Alcohol withdrawal Acute hyponatremia (Acute) Alcohol withdrawal seizure (Acute) Hypomagnesemia (Acute) Thrombocytopenia (Acute) Hypokalemia (Acute) Hypophosphatemia (Acute) Alcohol withdrawal (Acute) CHI (closed head injury) (Acute) Hepatitis (Acute) Thrombocytopenia Hyponatremia Hypokalemia Tobacco use disorder Hypomagnesemia (Acute) Cholestasis Jaundice (Acute) Electrolyte and fluid disorder Tobacco use Nausea & vomiting (Acute) Alcohol use (Acute) New onset seizure Syncope (Acute) Laceration of scalp (Acute) Acute hyponatremia (Acute) Hypercalcemia (Acute) Transaminitis (Acute) Medical History Acute blood loss anemia Acute hypokalemia Acute hyponatremia Hypomagnesemia Abdominal pain Spontaneous bacterial peritonitis Abdominal ascites Seizure EtOH withdrawal 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 Hyponatremia Chronic Anemia Thrombocytopenia Alcohol withdrawal Hepatitis Tobacco use Chronic hyponatremia Alcohol use CHI (closed head injury) Surgical History No pertinent past surgical history Family History Other Multiple myeloma Social History Smoking Status: Current every day smoker Tobacco Type: Cigarettes Cigarettes Per Day: 20; Second Hand Exposure: Yes; Do You Dip or Chew Tobacco: No; Hx Alcohol Use: Yes Alcohol type: beer Hx Substance Use: No Preferred Language: Kazakh Communication Ability: Effective Hearing Ability: Normal Merchandising Specialist Required: No Beliefs That Will Affect Care: None marital status: Single Current Living Situation: Family current occupational status: employed Feels Safe at Home: Yes Assistive Devices: None Allergies Allergies Allergy/AdvReac Type Severity Reaction Status Date / Time No Known Allergies Allergy Verified 02/02/24 04:05 Home Meds Home Medications Medication Instructions Recorded Confirmed Multi Vitamin 1 tab PO DAILY 02/02/24 02/02/24 Results & Data (ED) Vital Signs Vital Signs - 24 hr 02/02/24 01:50 02/02/24 01:50 02/02/24 01:50 Temperature 36.8 C Temperature Source Oral Pulse Rate 100 H Pulse Rate [Apical] Respiratory Rate 16 Respiratory Effort / Characteristics Non-Labored Non-Labored Respiratory Depth Normal Normal Blood Pressure [Left Arm] Blood Pressure Mean [Left Arm] Pulse Oximetry 98 Oxygen Delivery Method Room Air Room Air Sepsis Recent Fever Within 48 Hours No Sepsis New/Unexplained Change in Mental Status No Sepsis Action Taken by Nursing No Action Required 02/02/24 01:59 02/02/24 03:50 02/02/24 04:30 Temperature Temperature Source Pulse Rate 100 H Pulse Rate [Apical] 91 H 95 H Respiratory Rate 20 19 Respiratory Effort / Characteristics Respiratory Depth Blood Pressure [Left Arm] 118/71 126/77 Blood Pressure Mean [Left Arm] 86 93 Pulse Oximetry 95 91 Oxygen Delivery Method Room Air Room Air Sepsis Recent Fever Within 48 Hours Sepsis New/Unexplained Change in Mental Status Sepsis Action Taken by Nursing 02/02/24 06:14 Temperature Temperature Source Pulse Rate 105 H Pulse Rate [Apical] Respiratory Rate Respiratory Effort / Characteristics Respiratory Depth Blood Pressure [Left Arm] Blood Pressure Mean [Left Arm] Pulse Oximetry Oxygen Delivery Method Sepsis Recent Fever Within 48 Hours Sepsis New/Unexplained Change in Mental Status Sepsis Action Taken by Nursing Laboratory Data 02/02/24 02:11 02/02/24 02:11 Lab Results 02/02/24 02/02/24 02/02/24 Range/Units 02:11 02:11 02:11 WBC 7.80 (4.8-10.8) K/ul RBC 3.15 L (4.70-6.10) M/uL Hgb 10.5 L (14.0-18.0) g/dl Hct 27.0 L (42.0-52.0) % MCV 85.7 (80.0-100.0) fL MCH 33.3 (25.0-34.0) pg MCHC 38.9 H (32.0-36.0) g/dL RDW Std Deviation 68.0 H (36.4-46.3) fL RDW Coeff of [place] 22.5 H (11.5-14.5) % Plt Count 150 (130-400) K/uL MPV 11.4 (9.4-12.4) fL Anisocytosis Present Macrocytosis Present Pappenheimer Bodies 1+ Target Cells 3+ Stomatocytes 1+ PT 14.1 H (9.0-12.0) Seconds INR 1.3 H (0.9-1.1) VBG pH (7.36-7.41) VBG pCO2 (38-50) mmHg VBG pO2 mmHg VBG HCO3 mmol/L VBG O2 Saturation % VBG Base Excess mEq/L Sodium Cancelled 123 L Potassium Cancelled 2.9 L Chloride Cancelled Carbon Dioxide Anion Gap BUN Creatinine Est Cr Clr Drug Dosing Est GFR ( Amer) Est GFR (Non-Af Amer) BUN/Creatinine Ratio Glucose Osmolality (280-300) mOsm/kg Lactate (0.4-2.0) mmol/L Calcium Magnesium (1.7-2.4) mg/dl Total Bilirubin Direct Bilirubin AST ALT Alkaline Phosphatase Total Creatine Kinase (30-223) U/L Troponin I High Sens (0-20) pg/ml Total Protein Albumin Lipase TSH Urine Color Urine Appearance (Clear) Urine pH (4.5-7.5) Ur Specific [place] (1.000-1.030) Urine Protein (Negative) Urine Glucose (UA) (Negative) Urine Ketones (Negative) Urine Blood (Negative) Urine Nitrite (Negative) Urine Bilirubin (Negative) Urine Urobilinogen (Negative) Ur Leukocyte Esterase (Negative) Urine Osmolality (500-800) mOsm/kg Ur Random Sodium mmol/L Urine Opiates Screen (Neg) Ur Methadone, Qual (Neg) Urine Fentanyl Screen (Neg) Urine Barbiturates (Neg) Ur Phencyclidine (PCP) (Neg) U Amphetamin/Meth Scrn (Neg) MDMA (Ecstasy) Screen (Neg) U Benzodiazepines Scrn (Neg) Ur Cocaine Metabolite (Neg) U Marijuana (THC) Screen (Neg) Ethyl Alcohol mg/dL (<10.0) mg/dl 02/02/24 02/02/24 02/02/24 Range/Units 02:11 02:11 02:11 WBC (4.8-10.8) K/ul RBC (4.70-6.10) M/uL Hgb (14.0-18.0) g/dl Hct (42.0-52.0) % MCV (80.0-100.0) fL MCH (25.0-34.0) pg MCHC (32.0-36.0) g/dL RDW Std Deviation (36.4-46.3) fL RDW Coeff of Randall (11.5-14.5) % Plt Count (130-400) K/uL MPV (9.4-12.4) fL Anisocytosis Macrocytosis Pappenheimer Bodies Target Cells Stomatocytes PT (9.0-12.0) Seconds INR (0.9-1.1) VBG pH (7.36-7.41) VBG pCO2 (38-50) mmHg VBG pO2 mmHg VBG HCO3 mmol/L VBG O2 Saturation % VBG Base Excess mEq/L Sodium Potassium Chloride 79 L Carbon Dioxide Cancelled 26 Anion Gap Cancelled 18 H BUN Cancelled Creatinine Est Cr Clr Drug Dosing Est GFR ( Amer) Est GFR (Non-Af Amer) BUN/Creatinine Ratio Glucose Osmolality (280-300) mOsm/kg Lactate (0.4-2.0) mmol/L Calcium Magnesium (1.7-2.4) mg/dl Total Bilirubin Direct Bilirubin AST ALT Alkaline Phosphatase Total Creatine Kinase (30-223) U/L Troponin I High Sens (0-20) pg/ml Total Protein Albumin Lipase TSH Urine Color Urine Appearance (Clear) Urine pH (4.5-7.5) Ur Specific [place] (1.000-1.030) Urine Protein (Negative) Urine Glucose (UA) (Negative) Urine Ketones (Negative) Urine Blood (Negative) Urine Nitrite (Negative) Urine Bilirubin (Negative) Urine Urobilinogen (Negative) Ur Leukocyte Esterase (Negative) Urine Osmolality (500-800) mOsm/kg Ur Random Sodium mmol/L Urine Opiates Screen (Neg) Ur Methadone, Qual (Neg) Urine Fentanyl Screen (Neg) Urine Barbiturates (Neg) Ur Phencyclidine (PCP) (Neg) U Amphetamin/Meth Scrn (Neg) MDMA (Ecstasy) Screen (Neg) U Benzodiazepines Scrn (Neg) Ur Cocaine Metabolite (Neg) U Marijuana (THC) Screen (Neg) Ethyl Alcohol mg/dL (<10.0) mg/dl 02/02/24 02/02/24 02/02/24 Range/Units 02:11 02:11 02:11 WBC (4.8-10.8) K/ul RBC (4.70-6.10) M/uL Hgb (14.0-18.0) g/dl Hct (42.0-52.0) % MCV (80.0-100.0) fL MCH (25.0-34.0) pg MCHC (32.0-36.0) g/dL RDW Std Deviation (36.4-46.3) fL RDW Coeff of [place] (11.5-14.5) % Plt Count (130-400) K/uL MPV (9.4-12.4) fL Anisocytosis Macrocytosis Pappenheimer Bodies Target Cells Stomatocytes PT (9.0-12.0) Seconds INR (0.9-1.1) VBG pH (7.36-7.41) VBG pCO2 (38-50) mmHg VBG pO2 mmHg VBG HCO3 mmol/L VBG O2 Saturation % VBG Base Excess mEq/L Sodium Potassium Chloride Carbon Dioxide Anion Gap BUN 3 L Creatinine Cancelled 0.70 Est Cr Clr Drug Dosing Cancelled 119.2 Est GFR ( Amer) Cancelled Est GFR (Non-Af Amer) BUN/Creatinine Ratio Glucose Osmolality (280-300) mOsm/kg Lactate (0.4-2.0) mmol/L Calcium Magnesium (1.7-2.4) mg/dl Total Bilirubin Direct Bilirubin AST ALT Alkaline Phosphatase Total Creatine Kinase (30-223) U/L Troponin I High Sens (0-20) pg/ml Total Protein Albumin Lipase TSH Urine Color Urine Appearance (Clear) Urine pH (4.5-7.5) Ur Specific [place] (1.000-1.030) Urine Protein (Negative) Urine Glucose (UA) (Negative) Urine Ketones (Negative) Urine Blood (Negative) Urine Nitrite (Negative) Urine Bilirubin (Negative) Urine Urobilinogen (Negative) Ur Leukocyte Esterase (Negative) Urine Osmolality (500-800) mOsm/kg Ur Random Sodium mmol/L Urine Opiates Screen (Neg) Ur Methadone, Qual (Neg) Urine Fentanyl Screen (Neg) Urine Barbiturates (Neg) Ur Phencyclidine (PCP) (Neg) U Amphetamin/Meth Scrn (Neg) MDMA (Ecstasy) Screen (Neg) U Benzodiazepines Scrn (Neg) Ur Cocaine Metabolite (Neg) U Marijuana (THC) Screen (Neg) Ethyl Alcohol mg/dL (<10.0) mg/dl 02/02/24 02/02/24 02/02/24 Range/Units 02:11 02:11 02:11 WBC (4.8-10.8) K/ul RBC (4.70-6.10) M/uL Hgb (14.0-18.0) g/dl Hct (42.0-52.0) % MCV (80.0-100.0) fL MCH (25.0-34.0) pg MCHC (32.0-36.0) g/dL RDW Std Deviation (36.4-46.3) fL RDW Coeff of [place] (11.5-14.5) % Plt Count (130-400) K/uL MPV (9.4-12.4) fL Anisocytosis Macrocytosis Pappenheimer Bodies Target Cells Stomatocytes PT (9.0-12.0) Seconds INR (0.9-1.1) VBG pH (7.36-7.41) VBG pCO2 (38-50) mmHg VBG pO2 mmHg VBG HCO3 mmol/L VBG O2 Saturation % VBG Base Excess mEq/L Sodium Potassium Chloride Carbon Dioxide Anion Gap BUN Creatinine Est Cr Clr Drug Dosing Est GFR ( Amer) 135.9 Est GFR (Non-Af Amer) Cancelled 117.2 BUN/Creatinine Ratio Cancelled 4.3 L Glucose Cancelled Osmolality (280-300) mOsm/kg Lactate (0.4-2.0) mmol/L Calcium Magnesium (1.7-2.4) mg/dl Total Bilirubin Direct Bilirubin AST ALT Alkaline Phosphatase Total Creatine Kinase (30-223) U/L Troponin I High Sens (0-20) pg/ml Total Protein Albumin Lipase TSH Urine Color Urine Appearance (Clear) Urine pH (4.5-7.5) Ur Specific [place] (1.000-1.030) Urine Protein (Negative) Urine Glucose (UA) (Negative) Urine Ketones (Negative) Urine Blood (Negative) Urine Nitrite (Negative) Urine Bilirubin (Negative) Urine Urobilinogen (Negative) Ur Leukocyte Esterase (Negative) Urine Osmolality (500-800) mOsm/kg Ur Random Sodium mmol/L Urine Opiates Screen (Neg) Ur Methadone, Qual (Neg) Urine Fentanyl Screen (Neg) Urine Barbiturates (Neg) Ur Phencyclidine (PCP) (Neg) U Amphetamin/Meth Scrn (Neg) MDMA (Ecstasy) Screen (Neg) U Benzodiazepines Scrn (Neg) Ur Cocaine Metabolite (Neg) U Marijuana (THC) Screen (Neg) Ethyl Alcohol mg/dL (<10.0) mg/dl 02/02/24 02/02/24 02/02/24 Range/Units 02:11 02:11 02:11 WBC (4.8-10.8) K/ul RBC (4.70-6.10) M/uL Hgb (14.0-18.0) g/dl Hct (42.0-52.0) % MCV (80.0-100.0) fL MCH (25.0-34.0) pg MCHC (32.0-36.0) g/dL RDW Std Deviation (36.4-46.3) fL RDW Coeff of [place] (11.5-14.5) % Plt Count (130-400) K/uL MPV (9.4-12.4) fL Anisocytosis Macrocytosis Pappenheimer Bodies Target Cells Stomatocytes PT (9.0-12.0) Seconds INR (0.9-1.1) VBG pH (7.36-7.41) VBG pCO2 (38-50) mmHg VBG pO2 mmHg VBG HCO3 mmol/L VBG O2 Saturation % VBG Base Excess mEq/L Sodium Potassium Chloride Carbon Dioxide Anion Gap BUN Creatinine Est Cr Clr Drug Dosing Est GFR ( Amer) Est GFR (Non-Af Amer) BUN/Creatinine Ratio Glucose 146 H Osmolality 284 (280-300) mOsm/kg Lactate (0.4-2.0) mmol/L Calcium Cancelled 8.4 L Magnesium 1.0 L (1.7-2.4) mg/dl Total Bilirubin Cancelled 10.2 H Direct Bilirubin Cancelled AST ALT Alkaline Phosphatase Total Creatine Kinase (30-223) U/L Troponin I High Sens (0-20) pg/ml Total Protein Albumin Lipase TSH Urine Color Urine Appearance (Clear) Urine pH (4.5-7.5) Ur Specific [place] (1.000-1.030) Urine Protein (Negative) Urine Glucose (UA) (Negative) Urine Ketones (Negative) Urine Blood (Negative) Urine Nitrite (Negative) Urine Bilirubin (Negative) Urine Urobilinogen (Negative) Ur Leukocyte Esterase (Negative) Urine Osmolality (500-800) mOsm/kg Ur Random Sodium mmol/L Urine Opiates Screen (Neg) Ur Methadone, Qual (Neg) Urine Fentanyl Screen (Neg) Urine Barbiturates (Neg) Ur Phencyclidine (PCP) (Neg) U Amphetamin/Meth Scrn (Neg) MDMA (Ecstasy) Screen (Neg) U Benzodiazepines Scrn (Neg) Ur Cocaine Metabolite (Neg) U Marijuana (THC) Screen (Neg) Ethyl Alcohol mg/dL (<10.0) mg/dl 02/02/24 02/02/24 02/02/24 Range/Units 02:11 02:11 02:11 WBC (4.8-10.8) K/ul RBC (4.70-6.10) M/uL Hgb (14.0-18.0) g/dl Hct (42.0-52.0) % MCV (80.0-100.0) fL MCH (25.0-34.0) pg MCHC (32.0-36.0) g/dL RDW Std Deviation (36.4-46.3) fL RDW Coeff of [place] (11.5-14.5) % Plt Count (130-400) K/uL MPV (9.4-12.4) fL Anisocytosis Macrocytosis Pappenheimer Bodies Target Cells Stomatocytes PT (9.0-12.0) Seconds INR (0.9-1.1) VBG pH (7.36-7.41) VBG pCO2 (38-50) mmHg VBG pO2 mmHg VBG HCO3 mmol/L VBG O2 Saturation % VBG Base Excess mEq/L Sodium Potassium Chloride Carbon Dioxide Anion Gap BUN Creatinine Est Cr Clr Drug Dosing Est GFR ( Amer) Est GFR (Non-Af Amer) BUN/Creatinine Ratio Glucose Osmolality (280-300) mOsm/kg Lactate (0.4-2.0) mmol/L Calcium Magnesium (1.7-2.4) mg/dl Total Bilirubin Direct Bilirubin 6.6 H AST Cancelled 303 H ALT Cancelled 97 H Alkaline Phosphatase Cancelled Total Creatine Kinase (30-223) U/L Troponin I High Sens (0-20) pg/ml Total Protein Albumin Lipase TSH Urine Color Urine Appearance (Clear) Urine pH (4.5-7.5) Ur Specific [place] (1.000-1.030) Urine Protein (Negative) Urine Glucose (UA) (Negative) Urine Ketones (Negative) Urine Blood (Negative) Urine Nitrite (Negative) Urine Bilirubin (Negative) Urine Urobilinogen (Negative) Ur Leukocyte Esterase (Negative) Urine Osmolality (500-800) mOsm/kg Ur Random Sodium mmol/L Urine Opiates Screen (Neg) Ur Methadone, Qual (Neg) Urine Fentanyl Screen (Neg) Urine Barbiturates (Neg) Ur Phencyclidine (PCP) (Neg) U Amphetamin/Meth Scrn (Neg) MDMA (Ecstasy) Screen (Neg) U Benzodiazepines Scrn (Neg) Ur Cocaine Metabolite (Neg) U Marijuana (THC) Screen (Neg) Ethyl Alcohol mg/dL (<10.0) mg/dl 02/02/24 02/02/24 02/02/24 Range/Units 02:11 02:11 02:11 WBC (4.8-10.8) K/ul RBC (4.70-6.10) M/uL Hgb (14.0-18.0) g/dl Hct (42.0-52.0) % MCV (80.0-100.0) fL MCH (25.0-34.0) pg MCHC (32.0-36.0) g/dL RDW Std Deviation (36.4-46.3) fL RDW Coeff of [place] (11.5-14.5) % Plt Count (130-400) K/uL MPV (9.4-12.4) fL Anisocytosis Macrocytosis Pappenheimer Bodies Target Cells Stomatocytes PT (9.0-12.0) Seconds INR (0.9-1.1) VBG pH (7.36-7.41) VBG pCO2 (38-50) mmHg VBG pO2 mmHg VBG HCO3 mmol/L VBG O2 Saturation % VBG Base Excess mEq/L Sodium Potassium Chloride Carbon Dioxide Anion Gap BUN Creatinine Est Cr Clr Drug Dosing Est GFR ( Amer) Est GFR (Non-Af Amer) BUN/Creatinine Ratio Glucose Osmolality (280-300) mOsm/kg Lactate (0.4-2.0) mmol/L Calcium Magnesium (1.7-2.4) mg/dl Total Bilirubin Direct Bilirubin AST ALT Alkaline Phosphatase 1309 H Total Creatine Kinase 88 (30-223) U/L Troponin I High Sens 26.2 H (0-20) pg/ml Total Protein Cancelled 7.1 Albumin Cancelled 3.8 Lipase Cancelled TSH Urine Color Urine Appearance (Clear) Urine pH (4.5-7.5) Ur Specific [place] (1.000-1.030) Urine Protein (Negative) Urine Glucose (UA) (Negative) Urine Ketones (Negative) Urine Blood (Negative) Urine Nitrite (Negative) Urine Bilirubin (Negative) Urine Urobilinogen (Negative) Ur Leukocyte Esterase (Negative) Urine Osmolality (500-800) mOsm/kg Ur Random Sodium mmol/L Urine Opiates Screen (Neg) Ur Methadone, Qual (Neg) Urine Fentanyl Screen (Neg) Urine Barbiturates (Neg) Ur Phencyclidine (PCP) (Neg) U Amphetamin/Meth Scrn (Neg) MDMA (Ecstasy) Screen (Neg) U Benzodiazepines Scrn (Neg) Ur Cocaine Metabolite (Neg) U Marijuana (THC) Screen (Neg) Ethyl Alcohol mg/dL (<10.0) mg/dl 02/02/24 02/02/24 02/02/24 Range/Units 02:11 02:28 04:02 WBC (4.8-10.8) K/ul RBC (4.70-6.10) M/uL Hgb (14.0-18.0) g/dl Hct (42.0-52.0) % MCV (80.0-100.0) fL MCH (25.0-34.0) pg MCHC (32.0-36.0) g/dL RDW Std Deviation (36.4-46.3) fL RDW Coeff of [place] (11.5-14.5) % Plt Count (130-400) K/uL MPV (9.4-12.4) fL Anisocytosis Macrocytosis Pappenheimer Bodies Target Cells Stomatocytes PT (9.0-12.0) Seconds INR (0.9-1.1) VBG pH (7.36-7.41) VBG pCO2 (38-50) mmHg VBG pO2 mmHg VBG HCO3 mmol/L VBG O2 Saturation % VBG Base Excess mEq/L Sodium Potassium Chloride Carbon Dioxide Anion Gap BUN Creatinine Est Cr Clr Drug Dosing Est GFR ( Amer) Est GFR (Non-Af Amer) BUN/Creatinine Ratio Glucose Osmolality (280-300) mOsm/kg Lactate 5.4 H* (0.4-2.0) mmol/L Calcium Magnesium (1.7-2.4) mg/dl Total Bilirubin Direct Bilirubin AST ALT Alkaline Phosphatase Total Creatine Kinase (30-223) U/L Troponin I High Sens 21.3 H (0-20) pg/ml Total Protein Albumin Lipase 44 TSH Cancelled Urine Color Urine Appearance (Clear) Urine pH (4.5-7.5) Ur Specific [place] (1.000-1.030) Urine Protein (Negative) Urine Glucose (UA) (Negative) Urine Ketones (Negative) Urine Blood (Negative) Urine Nitrite (Negative) Urine Bilirubin (Negative) Urine Urobilinogen (Negative) Ur Leukocyte Esterase (Negative) Urine Osmolality (500-800) mOsm/kg Ur Random Sodium mmol/L Urine Opiates Screen (Neg) Ur Methadone, Qual (Neg) Urine Fentanyl Screen (Neg) Urine Barbiturates (Neg) Ur Phencyclidine (PCP) (Neg) U Amphetamin/Meth Scrn (Neg) MDMA (Ecstasy) Screen (Neg) U Benzodiazepines Scrn (Neg) Ur Cocaine Metabolite (Neg) U Marijuana (THC) Screen (Neg) Ethyl Alcohol mg/dL 107.3 H (<10.0) mg/dl 02/02/24 02/02/24 Range/Units 04:52 06:33 WBC (4.8-10.8) K/ul RBC (4.70-6.10) M/uL Hgb (14.0-18.0) g/dl Hct (42.0-52.0) % MCV (80.0-100.0) fL MCH (25.0-34.0) pg MCHC (32.0-36.0) g/dL RDW Std Deviation (36.4-46.3) fL RDW Coeff of [place] (11.5-14.5) % Plt Count (130-400) K/uL MPV (9.4-12.4) fL Anisocytosis Macrocytosis Pappenheimer Bodies Target Cells Stomatocytes PT (9.0-12.0) Seconds INR (0.9-1.1) VBG pH 7.49 H (7.36-7.41) VBG pCO2 39 (38-50) mmHg VBG pO2 54 mmHg VBG HCO3 30 mmol/L VBG O2 Saturation 88.3 % VBG Base Excess 5.9 mEq/L Sodium Potassium Chloride Carbon Dioxide Anion Gap BUN Creatinine Est Cr Clr Drug Dosing Est GFR ( Amer) Est GFR (Non-Af Amer) BUN/Creatinine Ratio Glucose Osmolality (280-300) mOsm/kg Lactate 3.3 H* (0.4-2.0) mmol/L Calcium Magnesium (1.7-2.4) mg/dl Total Bilirubin Direct Bilirubin AST ALT Alkaline Phosphatase Total Creatine Kinase (30-223) U/L Troponin I High Sens (0-20) pg/ml Total Protein Albumin Lipase TSH Urine Color Yellow Urine Appearance Clear (Clear) Urine pH 7.5 (4.5-7.5) Ur Specific [place] 1.005 (1.000-1.030) Urine Protein Negative (Negative) Urine Glucose (UA) Negative (Negative) Urine Ketones Negative (Negative) Urine Blood Negative (Negative) Urine Nitrite Negative (Negative) Urine Bilirubin Negative (Negative) Urine Urobilinogen Negative (Negative) Ur Leukocyte Esterase Negative (Negative) Urine Osmolality 163 L (500-800) mOsm/kg Ur Random Sodium 48 mmol/L Urine Opiates Screen Neg (Neg) Ur Methadone, Qual Neg (Neg) Urine Fentanyl Screen Neg (Neg) Urine Barbiturates Neg (Neg) Ur Phencyclidine (PCP) Neg (Neg) U Amphetamin/Meth Scrn Neg (Neg) MDMA (Ecstasy) Screen Neg (Neg) U Benzodiazepines Scrn Neg (Neg) Ur Cocaine Metabolite Neg (Neg) U Marijuana (THC) Screen Neg (Neg) Ethyl Alcohol mg/dL (<10.0) mg/dl Administered Medications Magnesium Sulfate/Dextrose (Magnesium Sulfate / D5w) 1 gm in 100 mls @ 50 mls/hr IV Q2H MEMO Stop: 02/02/24 10:29 Last Infusion: 02/02/24 06:31 Dose: Infused Documented By: Admin: 02/02/24 04:38 Dose: 50 mls/hr Documented By: KUNAL Nicotine (Nicotine 21 Mg/24 Hr Tdsy) 1 patch TD QAM MEMO Stop: 03/03/24 05:49 Last Admin: 02/02/24 06:31 Dose: 1 patch Documented By: REYNA Discontinued Medications Multivitamins 10 ml/ Thiamine HCl 100 mg/ Folic Acid 1 mg/Sodium Chloride 1,011.2 mls @ 500 mls/hr IV .Q2H2M ONE Stop: 02/02/24 04:20 Last Infusion: 02/02/24 05:47 Dose: Infused Documented By: Admin: 02/02/24 03:22 Dose: 500 mls/hr Documented By: REYNA Sodium Chloride (Nss) 1,000 mls @ 999 mls/hr IV .Q1H1M ONE Stop: 02/02/24 04:27 Last Infusion: 02/02/24 04:38 Dose: Infused Documented By: [facility] Admin: 02/02/24 03:31 Dose: 999 mls/hr Documented By: REYNA Magnesium Sulfate/Dextrose (Magnesium Sulfate / D5w) 1 gm in 100 mls @ 100 mls/hr IV NOW STA Stop: 02/02/24 04:27 Last Infusion: 02/02/24 04:38 Dose: Infused Documented By: [facility] Admin: 02/02/24 03:31 Dose: 100 mls/hr Documented By: REYNA Albumin Human (Albumin 25%) 25 gm in 100 mls @ 50 mls/hr IV ONE ONE Stop: 02/02/24 06:22 Last Admin: 02/02/24 06:31 Dose: 50 mls/hr Documented By: REYNA Lorazepam (Lorazepam 1 Mg/1 Ml Syr Ed Inj Use) 1 mg IV ONE STA Stop: 02/02/24 02:20 Last Admin: 02/02/24 02:24 Dose: 1 mg Documented By: NIKHIL Lorazepam (Lorazepam 1 Mg/1 Ml Syr Ed Inj Use) 2 mg IV ONE STA Stop: 02/02/24 03:28 Last Admin: 02/02/24 03:31 Dose: 2 mg Documented By: REYNA Potassium Chloride (Potassium Chloride Pwd 20 Meq Pack) 40 meq PO NOW STA Stop: 02/02/24 04:27 Last Admin: 02/02/24 04:41 Dose: 40 meq Documented By: KUNAL Potassium Chloride (Potassium Chloride Pwd 20 Meq Pack) 40 meq PO NOW STA Stop: 02/02/24 05:47 Last Admin: 02/02/24 06:31 Dose: 40 meq Documented By: [facility] Imaging Data Radiologist's Impression: Head CT 02/02/24 04:36 Exam(s): CT HEAD Without Contrast EXAM: CT Head Without Intravenous Contrast CLINICAL HISTORY: Reason for exam: head trauma. TECHNIQUE: Axial computed tomography images of the head/brain without intravenous contrast. CTDI is 37.01 mGy and DLP is 546.36 mGy-cm. Automated exposure control was utilized for the study. A dose lowering technique was utilized adhering to the principles of ALARA. COMPARISON: No relevant prior studies available. FINDINGS: Brain: No acute intracranial abnormality. Consider MRI if there is further concern. Areas of decreased attenuation in the deep cerebral white matter are consistent with small vessel ischemic/degenerative changes. The cerebral and cerebellar sulci are prominent consistent with brain atrophy. No hemorrhage. Ventricles: Unremarkable. No ventriculomegaly. Bones/joints: Unremarkable. No acute fracture. Soft tissues: Unremarkable. Vasculature: Atherosclerotic disease. Sinuses: Unremarkable as visualized. Mastoid air cells: Unremarkable as visualized. No mastoid effusion. IMPRESSION: 1. No acute intracranial abnormality. Consider MRI if there is further concern. 2. Small vessel ischemic/degenerative changes. 3. Cerebral and cerebellar atrophy. Electronically signed by: Bandar Palmer MD 02/02/24 05:29 AM Discharge Plan Visit Data Chief Complaint: Syncope Stated Complaint: Syncope ED Provider: Cliff Macias Discharge Problem: Alcohol withdrawal, Acute hyponatremia, Acute lactic acidosis, Hypomagnesemia, Jaundice, Transaminitis Forms Stand Alone Forms: Dorsa[facility] Prescriptions Prescriptions: No Action Multi Vitamin 1 tab PO DAILY Referrals Referrals: Hannah Albrecht DO [Outside Practitioners] - Discharge Problem: Alcohol withdrawal Qualifiers: Complication of substance-induced condition: with delirium Qualified Code(s): F 10.931 - Alcohol use, unspecified with withdrawal delirium
[2024-02-02] MEDS: LORazepam 1 MG/1 ML SYR ED Inj Use IV STA ×2 (02:24→03:31)
[2024-02-02 02:43] LABS: INR 1.3 (0.9-1.1); Prothrombin Time 14.1 Seconds (9.0-12.0)
[2024-02-02 02:51] LABS: Albumin Level 3.8 gm/dl (3.4-5.0); BUN Creatinine Ratio 4.3 (10-20); Bilirubin Direct 6.6 mg/dl (0-0.2); Bilirubin,Total 10.2 mg/dl (0.2-1.0); Calcium 8.4 mg/dl (8.6-10.3); Creatinine Clr Calc Pharmacy 119.2 ml/min; Est GFR (African American) 135.9 ml/min; Est GFR (Non-African American) 117.2 ml/min; Potassium 2.9 mmol/L (3.5-5.1); Total Protein 7.1 gm/dl (6.0-8.3)
[2024-02-02 02:56] LABS: Troponin I High Sensitivity 26.2 pg/ml (0-20)
[2024-02-02 03:21] LABS: Anisocytosis Present; Hemoglobin 10.5 g/dl (14.0-18.0); Macrocytosis Present; Mean Corpuscular Hemoglobin 33.3 pg (25.0-34.0); Mean Corpuscular Hgb Conc 38.9 g/dL (32.0-36.0); Mean Corpuscular Volume 85.7 fL (80.0-100.0); Mean Platelet Volume 11.4 fL (9.4-12.4); Pappenheimer Bodies 1+; Platelet Count 150 K/uL (130-400); RDW Coefficient of Variation 22.5 % (11.5-14.5); Red Blood Count 3.15 M/uL (4.70-6.10); Stomatocytes 1+; Target Cells 3+
[2024-02-02] MEDS: MULTI-VITAMIN INFUSION 10 ML, THIAMINE HCL 100 MG, FOLIC ACID 1 MG in SODIUM CHLORIDE 0... IV ONE (03:22)
[2024-02-02] MEDS: MAGNESIUM SULFATE / D5W 1 GM/100 ML BAG IV STA (03:31)
[2024-02-02] MEDS: SODIUM CHLORIDE 0.9% 1,000 ML IV ONE (03:31)
[2024-02-02] MEDS: MAGNESIUM SULFATE / D5W 1 GM/100 ML BAG IV SCH (04:38)
[2024-02-02] MEDS: POTASSIUM CHLORIDE PWD 20 MEQ PACK PO STA ×2 (04:41→06:31)
[2024-02-02 05:00] LABS: Appearance Urine Clear (Clear); Bilirubin Urine Negative (Negative); Blood Urine Negative (Negative); Color Urine Yellow; Glucose Urine UA Negative (Negative); Ketones Urine Negative (Negative); Leukocyte Esterase Urine Negative (Negative); Nitrite Urine Negative (Negative); Protein Urine Negative (Negative); Specific Gravity Urine 1.005 (1.000-1.030); Urobilinogen Urine Negative (Negative); pH Urine 7.5 (4.5-7.5)
--- NOTE | 2024-02-02 05:30 | CT Scan Report ---
Exam(s): CT HEAD Without Contrast EXAM: CT Head Without Intravenous Contrast CLINICAL HISTORY: Reason for exam: head trauma. TECHNIQUE: Axial computed tomography images of the head/brain without intravenous contrast. CTDI is 37.01 mGy and DLP is 546.36 mGy-cm. Automated exposure control was utilized for the study. A dose lowering technique was utilized adhering to the principles of ALARA. COMPARISON: No relevant prior studies available. FINDINGS: Brain: No acute intracranial abnormality. Consider MRI if there is further concern. Areas of decreased attenuation in the deep cerebral white matter are consistent with small vessel ischemic/degenerative changes. The cerebral and cerebellar sulci are prominent consistent with brain atrophy. No hemorrhage. Ventricles: Unremarkable. No ventriculomegaly. Bones/joints: Unremarkable. No acute fracture. Soft tissues: Unremarkable. Vasculature: Atherosclerotic disease. Sinuses: Unremarkable as visualized. Mastoid air cells: Unremarkable as visualized. No mastoid effusion. IMPRESSION: 1. No acute intracranial abnormality. Consider MRI if there is further concern. 2. Small vessel ischemic/degenerative changes. 3. Cerebral and cerebellar atrophy. Electronically signed by: Bandar Palmer MD 02/02/24 05:29 AM
[2024-02-02 05:42] LABS: Amphetamines+Metham, Urine Neg (Neg); Barbiturates, Urine Neg (Neg); Benzodiazepine, Urine Neg (Neg); Cocaine, Urine Neg (Neg); Fentanyl, Urine Neg (Neg); MDMA (Ecstacy), Urine Neg (Neg); Marijuana, Urine Neg (Neg); Methadone, Urine Neg (Neg); Opiate, Urine Neg (Neg); Phencyclidine, Urine Neg (Neg)
--- NOTE | 2024-02-02 05:42 | History & Physical Report ---
Date of Service February 02, 2024 Assessment & Plan (1) Acute hyponatremia: Plan: Hyponatremia: Plan: Acute on chronic in the setting of alcohol abuse History alcoholic cirrhosis and alcohol abuse. Syncope rule out orthostasis, structural cardiac pathology alcoholic cirrhosis, no overt decompensation Alcoholic hepatitis, good prognosis with computed DF score of 19.9 points hx gastritis history alcohol withdrawal seizures SAH secondary to intracranial aneurysm emphysema as per records, not in exacerbation chronic anemia, hemoglobin at baseline Hypokalemia, hypomagnesemia secondary to decreased p.o. intake/alcohol abuse Ongoing tobacco abuse Admit to medical telemetry Careful correction of sodium after initial fluid boluses given at the ER, 1.5 fluid restriction May need Nephrology consult Orthostatic vitals, TTE for syncope workup GI consult re: alcoholic hepatitis KENNY S at risk protocol, DT precautions Replace electrolytes Nicotine patch DVT prophylaxis. SCDs Re: history SAH, recent head trauma Full code Text document was generated using [employer] voice recognition software. It may contain grammatical or spelling errors. Kindly contact undersigned for clarification of any documentation item in que stion. History of Present Illness Chief Complaint: Syncope Primary Care Provider: Dr. Albrecht History obtained from patient and records. Limited history from patient secondary to intoxicated state. Medical history significant for alcoholic cirrhosis, gastritis, history alcohol withdrawal seizures, SAH, intracranial aneurysm, chronic hyponatremia, emphysema as per records, ongoing alcohol/ tobacco abuse, chronic anemia ( baseline hemoglobin 9), medical noncompliance. Last confinement October 2023 for acute on chronic hyponatremia in the setting of alcohol abuse and community-acquired pneumonia. Patient has not seen PCP since discharge from hospital. Patient shaky all day. Unwitnessed syncopal event at home leading to head trauma. Transient headache symptoms. Denies chest pain, SOB, abdominal pain. 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 Allergies Allergy/AdvReac Type Severity Reaction Status Date / Time No Known Allergies Allergy Verified 02/02/24 04:05 Home Medications Medication Instructions Recorded Confirmed Type Multi Vitamin 1 tab PO DAILY 02/02/24 02/02/24 History Past Med/Surg History Problem List (Updated 02/02/24 @ 05:34 by Cliff Macias MD) Acute lactic acidosis (Acute) Acute hyponatremia (Acute) Alcohol withdrawal (Acute) Volume overload Pleuritic chest pain Pleural effusion Hyponatremia (Acute) Right lower lobe pneumonia (Acute) Spontaneous bacterial peritonitis Abdominal ascites Dizziness (Acute) Hyponatremia Chronic Decompensation of cirrhosis of liver (Acute) Transaminitis (Acute) Hyperbilirubinemia Alcohol dependence (Acute) Hypophosphatemia Heme + stool Alcohol withdrawal Acute hyponatremia (Acute) Alcohol withdrawal seizure (Acute) Hypomagnesemia (Acute) Thrombocytopenia (Acute) Hypokalemia (Acute) Hypophosphatemia (Acute) Alcohol withdrawal (Acute) CHI (closed head injury) (Acute) Hepatitis (Acute) Thrombocytopenia Hyponatremia Hypokalemia Tobacco use disorder Hypomagnesemia (Acute) Cholestasis Jaundice (Acute) Electrolyte and fluid disorder Tobacco use Nausea & vomiting (Acute) Alcohol use (Acute) New onset seizure Syncope (Acute) Laceration of scalp (Acute) Acute hyponatremia (Acute) Hypercalcemia (Acute) Transaminitis (Acute) Medical History Acute blood loss anemia Acute hypokalemia Acute hyponatremia Hypomagnesemia Abdominal pain Spontaneous bacterial peritonitis Abdominal ascites Seizure EtOH withdrawal 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 Hyponatremia Chronic Anemia Thrombocytopenia Alcohol withdrawal Hepatitis Tobacco use Chronic hyponatremia Alcohol use CHI (closed head injury) Surgical History No pertinent past surgical history Family History Other Multiple myeloma Social History Smoking Status: Current every day smoker Tobacco Type: Cigarettes Cigarettes Per Day: 1 PPD; Second Hand Exposure: Yes; Do You Dip or Chew Tobacco: No; Hx Alcohol Use: Yes Alcohol type: beer Hx Substance Use: No Preferred Language: Mozambican Communication Ability: Effective Hearing Ability: Normal Checker Loader Required: No Beliefs That Will Affect Care: None marital status: Single Current Living Situation: Alone current occupational status: employed Feels Safe at Home: Yes Safety Concerns: Feels Safe At This Time Assistive Devices: None Review of Systems Review of Systems: Could not be reliably obtained secondary to intoxicated state. Physical Exam Physical Exam: GENERAL: chronically ill, looks older than stated age, flat affect, intoxicated, no respiratory distress SKIN: Pallor, warm HEENT: Pale palpebral conjunctivae, no ptosis, dry buccal mucosa NECK : Supple, no tenderness CHEST : Decreased breath sounds, no tenderness HEART : RRR, no obvious murmurs ABDOMEN: No distention, nontender EXTREMITIES : no LE swelling, no LE tenderness, no other conspicuous deformities noted NEUROLOGIC : Intoxicated, no facial asymmetry, no other gross focality Results & Data Results & Data Vital Signs (Past 12 Hours) Vital Signs Temp Pulse Pulse Resp BP Pulse Ox O2 Del Method 02/02/24 04:30 95 H 19 126/77 91 Room Air 02/02/24 03:50 91 H 20 118/71 95 Room Air 02/02/24 01:59 100 H 02/02/24 01:50 Room Air 02/02/24 01:50 36.8 C 100 H 16 98 Room Air Laboratory Results Laboratory Results WBC 7.80 K/ul (4.8-10.8) 02/02/24 02:11 RBC 3.15 M/uL (4.70-6.10) L 02/02/24 02:11 Hgb 10.5 g/dl (14.0-18.0) L 02/02/24 02:11 Hct 27.0 % (42.0-52.0) L 02/02/24 02:11 MCV 85.7 fL (80.0-100.0) 02/02/24 02:11 MCH 33.3 pg (25.0-34.0) 02/02/24 02:11 MCHC 38.9 g/dL (32.0-36.0) H 02/02/24 02:11 RDW Std Deviation 68.0 fL (36.4-46.3) H 02/02/24 02:11 RDW Coeff of Randall 22.5 % (11.5-14.5) H 02/02/24 02:11 Plt Count 150 K/uL (130-400) 02/02/24 02:11 MPV 11.4 fL (9.4-12.4) 02/02/24 02:11 Anisocytosis Present 02/02/24 02:11 Macrocytosis Present 02/02/24 02:11 Pappenheimer Bodies 1+ 02/02/24 02:11 Target Cells 3+ 02/02/24 02:11 Stomatocytes 1+ 02/02/24 02:11 PT 14.1 Seconds (9.0-12.0) H 02/02/24 02:11 INR 1.3 (0.9-1.1) H 02/02/24 02:11 Sodium 123 mmol/L (136-145) L 02/02/24 02:11 Sodium Cancelled 02/02/24 02:11 Potassium 2.9 mmol/L (3.5-5.1) L 02/02/24 02:11 Potassium Cancelled 02/02/24 02:11 Chloride 79 mmol/L (98-107) L 02/02/24 02:11 Chloride Cancelled 02/02/24 02:11 Carbon Dioxide 26 mmol/L (21-32) 02/02/24 02:11 Carbon Dioxide Cancelled 02/02/24 02:11 Anion Gap 18 (3-11) H 02/02/24 02:11 Anion Gap Cancelled 02/02/24 02:11 BUN 3 mg/dl (6-23) L 02/02/24 02:11 BUN Cancelled 02/02/24 02:11 Creatinine 0.70 mg/dl (0.6-1.4) 02/02/24 02:11 Creatinine Cancelled 02/02/24 02:11 Est Cr Clr Drug Dosing 119.2 ml/min 02/02/24 02:11 Est Cr Clr Drug Dosing Cancelled 02/02/24 02:11 Est GFR ( Amer) 135.9 ml/min 02/02/24 02:11 Est GFR ( Amer) Cancelled 02/02/24 02:11 Est GFR (Non-Af Amer) 117.2 ml/min 02/02/24 02:11 Est GFR (Non-Af Amer) Cancelled 02/02/24 02:11 BUN/Creatinine Ratio 4.3 (10-20) L 02/02/24 02:11 BUN/Creatinine Ratio Cancelled 02/02/24 02:11 Glucose 146 mg/dl (70-99(Fasting)) H 02/02/24 02:11 Glucose Cancelled 02/02/24 02:11 Lactate 5.4 mmol/L (0.4-2.0) H* 02/02/24 02:28 Calcium 8.4 mg/dl (8.6-10.3) L 02/02/24 02:11 Calcium Cancelled 02/02/24 02:11 Magnesium 1.0 mg/dl (1.7-2.4) L 02/02/24 02:11 Total Bilirubin 10.2 mg/dl (0.2-1.0) H 02/02/24 02:11 Total Bilirubin Cancelled 02/02/24 02:11 Direct Bilirubin 6.6 mg/dl (0-0.2) H 02/02/24 02:11 Direct Bilirubin Cancelled 02/02/24 02:11 AST 303 U/L (13-39) H 02/02/24 02:11 AST Cancelled 02/02/24 02:11 ALT 97 U/L (7-52) H 02/02/24 02:11 ALT Cancelled 02/02/24 02:11 Alkaline Phosphatase 1309 U/L (34-104) H 02/02/24 02:11 Alkaline Phosphatase Cancelled 02/02/24 02:11 Total Creatine Kinase 88 U/L (30-223) 02/02/24 02:11 Troponin I High Sens 21.3 pg/ml (0-20) H 02/02/24 04:02 Total Protein 7.1 gm/dl (6.0-8.3) 02/02/24 02:11 Total Protein Cancelled 02/02/24 02:11 Albumin 3.8 gm/dl (3.4-5.0) 02/02/24 02:11 Albumin Cancelled 02/02/24 02:11 Lipase 44 U/L (11-82) 02/02/24 02:11 Lipase Cancelled 02/02/24 02:11 Urine Color Yellow 02/02/24 04:52 Urine Appearance Clear (Clear) 02/02/24 04:52 Urine pH 7.5 (4.5-7.5) 02/02/24 04:52 Ur Specific Devol 1.005 (1.000-1.030) 02/02/24 04:52 Urine Protein Negative (Negative) 02/02/24 04:52 Urine Glucose (UA) Negative (Negative) 02/02/24 04:52 Urine Ketones Negative (Negative) 02/02/24 04:52 Urine Blood Negative (Negative) 02/02/24 04:52 Urine Nitrite Negative (Negative) 02/02/24 04:52 Urine Bilirubin Negative (Negative) 02/02/24 04:52 Urine Urobilinogen Negative (Negative) 02/02/24 04:52 Ur Leukocyte Esterase Negative (Negative) 02/02/24 04:52 Ethyl Alcohol mg/dL 107.3 mg/dl (<10.0) H 02/02/24 02:[address] 02/02/24 04:36 Exam(s): CT HEAD Without Contrast EXAM: CT Head Without Intravenous Contrast CLINICAL HISTORY: Reason for exam: head trauma. TECHNIQUE: Axial computed tomography images of the head/brain without intravenous contrast. CTDI is 37.01 mGy and DLP is 546.36 mGy-cm. Automated exposure control was utilized for the study. A dose lowering technique was utilized adhering to the principles of ALARA. COMPARISON: No relevant prior studies available. FINDINGS: Brain: No acute intracranial abnormality. Consider MRI if there is further concern. Areas of decreased attenuation in the deep cerebral white matter are consistent with small vessel ischemic/degenerative changes. The cerebral and cerebellar sulci are prominent consistent with brain atrophy. No hemorrhage. Ventricles: Unremarkable. No ventriculomegaly. Bones/joints: Unremarkable. No acute fracture. Soft tissues: Unremarkable. Vasculature: Atherosclerotic disease. Sinuses: Unremarkable as visualized. Mastoid air cells: Unremarkable as visualized. No mastoid effusion. IMPRESSION: 1. No acute intracranial abnormality. Consider MRI if there is further concern. 2. Small vessel ischemic/degenerative changes. 3. Cerebral and cerebellar atrophy. Electronically signed by: Bandar Palmer MD 02/02/24 05:29 AM Diagnostic Findings Chest x-ray as per my interpretation no congestion
[2024-02-02] MEDS ORDERED: PROMETHAZINE 6.25 MG/50.25 ML BAG IV PRN (05:48)
[2024-02-02] MEDS ORDERED: oxyCODONE HCL IR 5 MG TAB (IMMEDIATE RELEASE) PO PRN ×2 (05:48→15:00)
[2024-02-02] MEDS: ALBUMIN 25% 25 GM/100 ML VIAL IV ONE (06:31)
[2024-02-02] MEDS: NICOTINE 21 MG/24 HR TDSY TD SCH (06:31)
[2024-02-02 06:47] LABS: Base Excess VBG 5.9 mEq/L; HCO3 VBG 30 mmol/L; Oxygen Saturation VBG 88.3 %; PCO2 VBG 39 mmHg (38-50); PO2 VBG 54 mmHg; pH VBG 7.49 (7.36-7.41)
--- NOTE | 2024-02-02 06:53 | XRay Report ---
XR chest 1V portable CLINICAL HISTORY: syncope TECHNIQUE: Single frontal radiograph of the chest was obtained. Comparison: Comparison is made to chest radiograph 09/13/2023 FINDINGS: No lines and tubes are seen. The cardiomediastinal silhouette is normal. The lungs are clear. No evid ence of pleural effusion or pneumothorax. IMPRESSION: No acute chest disease. ACT 112: Negative or not required by law. Electronically signed by: Albert Sharp M.D. 02/02/2024 6:51 AM
[2024-02-02 07:22] LABS: Thyroid Stimulating Hormone 1.938 uIu/ml (0.300-4.500)
--- NOTE | 2024-02-02 09:19 | Ultrasound Report ---
US liver CLINICAL HISTORY: rule out CBD dilation TECHNIQUE: Multiple real-time sonographic images of the right upper quadrant were obtained. Comparison: Comparison is made to CT abdomen pelvis 09/11/2023 FINDINGS: The liver is diffusely coarsened in echotexture, with a nodular contour. The liver appears shrunken i n appearance. These findings are suggestive of cirrhosis. No focal mass lesions are seen. No intr ahepatic ductal dilatation is seen. Low level internal echoes are identified layering dependently wi thin the gallbladder, which is consistent with gallbladder sludge. The gallbladder wall is not thicke justyna. There is no pericholecystic fluid present. A sonographic Chao's sign was not elicited by the machine i trimmer. The common duct measures approximately 0.4 cm in diameter at the level of the hepatic artery. The visualized portions of the pancreas appear normal. Right kidney was not seen. No ascites or free fluid is seen in Bridges's pouch. IMPRESSION: 1. Limited exam without evidence of dilation of the common bile duct. 2. Cirrhosis. ACT 112: Negative or not required by law. Electronically signed by: Albert Sharp M.D. 02/02/2024 9:17 AM
--- NOTE | 2024-02-02 09:51 | Gastrointestinal Consultation ---
Date of Consultation February 02, 2024 Assessment & Plan (1) Alcohol withdrawal: 39 year old male with history of ongoing ETOH abuse, cirrhosis with ascites, SBP, COPD, subarachnoid hemorrhage admitted for evaluation of a syncopal event, GI asked to evaluate for elevated LFTs. ABD US consistent with cirrhosis, gallbladder sludge but no report of biliary dilation. - MELD 22 - DF 19, no indication for glucocorticoid therapy - Check tylenol levels - Check viral serologies - Acute hepatitis panel - CMV, EBV, HSV - May arrange MRCP given transaminitis and biliary sludge noted on ABD US - He has follow up arranged with hepatology at [facility], he as encouraged to keep this - ETOH withdrawal protocol - Educated on importance of complete alcohol abstinence moving foward - MELD labs every 6 months - ABD imaging w/ AFP every 6 months, due in July - EGD every 2024 - No ETOH - No NSAIDs - Avoid hepatotoxin - Low NA diet, less than 2G daily - Less than 2G acetaminophen containing products daily Thank you for allowing us to participate in the care of this patient. Please call with any acute changes, questions or concerns. Please see addendum below with additional recommendation from my supervising physician. I spent a total of 60 minutes on the date of service in review of patient's record, and previously obtained information in person and appropriate medical visit, discussion and education of plan, with patient and/or caregiver, placing orders for tests/referral/procedures as medically necessary and documentation of pertinent clinical information in patient's medical records for their visit today. Supervising Physician Co-Signing Physician Notes I saw and examined this patient with our nurse practitioner and agree with her assessment and plan. Patient with chronic liver disease due to alcohol not abs tinent. Presents for evaluation of a syncopal episode not having any evidence of decompensation of his liver disease requiring hospitalization. Does have significantly abnormal liver tests which are fluctuated in the past. Denies any abdominal pain confusion abdominal distention or lower extremity edema. In light of significant elevation in bilirubin alkaline phosphatase we recommend an MRI MRCP to further evaluate his liver to exclude any biliary tract pathology or hepatic pathology such as HCC. History of Present Illness Reason for Consultation: elevated liver enzymes Requesting Physician: Nicolasa Attending Physician: Osvaldo Baldwin MD History of Present Illness 39 year old male with history of ongoing ETOH abuse, cirrhosis with ascites, SBP, COPD, subarachnoid hemorrhage and others below admitted through the ED for a syncopal event - GI asked to evaluate for elevated LFTs. He notes ongoing daily ETOH use, this ranged 2-6 twisted teas daily - denies drinking liquor. Denies abd pain, nausea,vomiting. No black or bloody stools. No report of new medications to me. Denies tylenol use. No fever, chills, CP, SOB. Diagnosis: presumed ETOH cirrhosis, ongoing ETOH use daily 2-6 twisted teas daily Decompensations Varices: none on 2023 EGD SBP: treated in 07/2023, no ascites on examination today HE: none Screenings: MELD: 22 Maddrey: 19.4 HCC: due in July Varices: due in 2024 Immunizations: status unknown ABD US 2023: Limited exam without evidence of dilation of the common bile duct.Cirrhosis. EGD 2023: - Normal esophagus. - Gastritis. Biopsied. - Normal examined duodenum. 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 Hyponatremia Chronic Anemia Thrombocytopenia Alcohol withdrawal Hepatitis Tobacco use Chronic hyponatremia Alcohol use CHI (closed head injury) Surgical History No pertinent past surgical history Family History Other Multiple myeloma Social History Smoking Status: Current every day smoker Tobacco Type: Cigarettes Cigarettes Per Day: 1 PPD; Second Hand Exposure: Yes; Do You Dip or Chew Tobacco: No; Hx Alcohol Use: Yes Alcohol type: beer Hx Substance Use: No Preferred Language: [place] Communication Ability: Effective Hearing Ability: Normal Train Brakeman Required: No Beliefs That Will Affect Care: None marital status: Single Current Living Situation: Alone current occupational status: employed Feels Safe at Home: Yes Safety Concerns: Feels Safe At This Time Assistive Devices: None Review of Systems Review of Systems: All other findings negative except as noted in HPI. Physical Exam Constitutional: WD/WN, vitals as above Respiratory: normal respiratory effort, lungs clear to auscultation Cardiovascular: RRR, no murmur, no edema Gastrointestinal (Abdomen): normal bowel sounds, soft, nontender, no hepatosplenomegaly Skin: no rashes, warm and dry + jaundice Psychiatric: Orientation: alert and oriented x 3 Results & Data Vital Signs (Past 12 Hours) Vital Signs Temp Pulse Pulse Resp BP BP Pulse Ox 02/02/24 08:00 84 22 93 02/02/24 08:00 119/74 02/02/24 08:00 119/74 02/02/24 08:00 119/74 02/02/24 08:00 119/74 02/02/24 07:57 89 22 94 02/02/24 07:42 85 23 93 02/02/24 07:27 89 22 93 02/02/24 07:12 91 H 22 93 02/02/24 07:00 127/82 02/02/24 07:00 127/82 02/02/24 07:00 93 H 22 93 02/02/24 06:14 105 H 02/02/24 04:30 95 H 19 126/77 91 02/02/24 03:50 91 H 20 118/71 95 02/02/24 01:59 100 H 02/02/24 01:50 02/02/24 01:50 36.8 C 100 H 16 98 O2 Del Method 02/02/24 08:00 02/02/24 08:00 02/02/24 08:00 02/02/24 08:00 02/02/24 08:00 02/02/24 07:57 02/02/24 07:42 02/02/24 07:27 02/02/24 07:12 02/02/24 07:00 02/02/24 07:00 02/02/24 07:00 02/02/24 06:14 02/02/24 04:30 Room Air 02/02/24 03:50 Room Air 02/02/24 01:59 02/02/24 01:50 Room Air 02/02/24 01:50 Room Air Laboratory Results 02/02/24 02/02/24 02/02/24 Range/Units 06:33 04:52 04:02 WBC (4.8-10.8) K/ul RBC (4.70-6.10) M/uL Hgb (14.0-18.0) g/dl Hct (42.0-52.0) % MCV (80.0-100.0) fL MCH (25.0-34.0) pg MCHC (32.0-36.0) g/dL RDW Std Deviation (36.4-46.3) fL RDW Coeff of Randall (11.5-14.5) % Plt Count (130-400) K/uL MPV (9.4-12.4) fL Anisocytosis Macrocytosis Pappenheimer Bodies Target Cells Stomatocytes PT (9.0-12.0) Seconds INR (0.9-1.1) VBG pH 7.49 H (7.36-7.41) VBG pCO2 39 (38-50) mmHg VBG pO2 54 mmHg VBG HCO3 30 mmol/L VBG O2 Saturation 88.3 % VBG Base Excess 5.9 mEq/L Sodium 131 L Potassium Chloride Carbon Dioxide Anion Gap BUN Creatinine Est Cr Clr Drug Dosing Est GFR ( Amer) Est GFR (Non-Af Amer) BUN/Creatinine Ratio Glucose Osmolality (280-300) mOsm/kg Lactate 3.3 H* (0.4-2.0) mmol/L Calcium Magnesium (1.7-2.4) mg/dl Total Bilirubin Direct Bilirubin AST ALT Alkaline Phosphatase Ammonia 39.0 (18-72) umol/L Total Creatine Kinase (30-223) U/L Troponin I High Sens 21.3 H (0-20) pg/ml Total Protein Albumin Lipase TSH 1.938 Urine Color Yellow Urine Appearance Clear (Clear) Urine pH 7.5 (4.5-7.5) Ur Specific [place] 1.005 (1.000-1.030) Urine Protein Negative (Negative) Urine Glucose (UA) Negative (Negative) Urine Ketones Negative (Negative) Urine Blood Negative (Negative) Urine Nitrite Negative (Negative) Urine Bilirubin Negative (Negative) Urine Urobilinogen Negative (Negative) Ur Leukocyte Esterase Negative (Negative) Urine Osmolality 163 L (500-800) mOsm/kg Ur Random Sodium 48 mmol/L Urine Opiates Screen Neg (Neg) Ur Methadone, Qual Neg (Neg) Urine Fentanyl Screen Neg (Neg) Urine Barbiturates Neg (Neg) Ur Phencyclidine (PCP) Neg (Neg) U Amphetamin/Meth Scrn Neg (Neg) MDMA (Ecstasy) Screen Neg (Neg) U Benzodiazepines Scrn Neg (Neg) Ur Cocaine Metabolite Neg (Neg) U Marijuana (THC) Screen Neg (Neg) Ethyl Alcohol mg/dL (<10.0) mg/dl 02/02/24 02/02/24 02/02/24 Range/Units 02:28 02:11 02:11 WBC (4.8-10.8) K/ul RBC (4.70-6.10) M/uL Hgb (14.0-18.0) g/dl Hct (42.0-52.0) % MCV (80.0-100.0) fL MCH (25.0-34.0) pg MCHC (32.0-36.0) g/dL RDW Std Deviation (36.4-46.3) fL RDW Coeff of Randall (11.5-14.5) % Plt Count (130-400) K/uL MPV (9.4-12.4) fL Anisocytosis Macrocytosis Pappenheimer Bodies Target Cells Stomatocytes PT (9.0-12.0) Seconds INR (0.9-1.1) VBG pH (7.36-7.41) VBG pCO2 (38-50) mmHg VBG pO2 mmHg VBG HCO3 mmol/L VBG O2 Saturation % VBG Base Excess mEq/L Sodium Potassium Chloride Carbon Dioxide Anion Gap BUN Creatinine Est Cr Clr Drug Dosing Est GFR ( Amer) Est GFR (Non-Af Amer) BUN/Creatinine Ratio Glucose Osmolality (280-300) mOsm/kg Lactate 5.4 H* (0.4-2.0) mmol/L Calcium Magnesium (1.7-2.4) mg/dl Total Bilirubin Direct Bilirubin AST ALT Alkaline Phosphatase Ammonia (18-72) umol/L Total Creatine Kinase (30-223) U/L Troponin I High Sens (0-20) pg/ml Total Protein Albumin 3.8 Lipase 44 Cancelled TSH Cancelled Urine Color Urine Appearance (Clear) Urine pH (4.5-7.5) Ur Specific [place] (1.000-1.030) Urine Protein (Negative) Urine Glucose (UA) (Negative) Urine Ketones (Negative) Urine Blood (Negative) Urine Nitrite (Negative) Urine Bilirubin (Negative) Urine Urobilinogen (Negative) Ur Leukocyte Esterase (Negative) Urine Osmolality (500-800) mOsm/kg Ur Random Sodium mmol/L Urine Opiates Screen (Neg) Ur Methadone, Qual (Neg) Urine Fentanyl Screen (Neg) Urine Barbiturates (Neg) Ur Phencyclidine (PCP) (Neg) U Amphetamin/Meth Scrn (Neg) MDMA (Ecstasy) Screen (Neg) U Benzodiazepines Scrn (Neg) Ur Cocaine Metabolite (Neg) U Marijuana (THC) Screen (Neg) Ethyl Alcohol mg/dL 107.3 H (<10.0) mg/dl 02/02/24 02/02/24 02/02/24 Range/Units 02:11 02:11 02:11 WBC (4.8-10.8) K/ul RBC (4.70-6.10) M/uL Hgb (14.0-18.0) g/dl Hct (42.0-52.0) % MCV (80.0-100.0) fL MCH (25.0-34.0) pg MCHC (32.0-36.0) g/dL RDW Std Deviation (36.4-46.3) fL RDW Coeff of Randall (11.5-14.5) % Plt Count (130-400) K/uL MPV (9.4-12.4) fL Anisocytosis Macrocytosis Pappenheimer Bodies Target Cells Stomatocytes PT (9.0-12.0) Seconds INR (0.9-1.1) VBG pH (7.36-7.41) VBG pCO2 (38-50) mmHg VBG pO2 mmHg VBG HCO3 mmol/L VBG O2 Saturation % VBG Base Excess mEq/L Sodium Potassium Chloride Carbon Dioxide Anion Gap BUN Creatinine Est Cr Clr Drug Dosing Est GFR ( Amer) Est GFR (Non-Af Amer) BUN/Creatinine Ratio Glucose Osmolality (280-300) mOsm/kg Lactate (0.4-2.0) mmol/L Calcium Magnesium (1.7-2.4) mg/dl Total Bilirubin Direct Bilirubin AST ALT 97 H Alkaline Phosphatase 1309 H Cancelled Ammonia (18-72) umol/L Total Creatine Kinase 88 (30-223) U/L Troponin I High Sens 26.2 H (0-20) pg/ml Total Protein 7.1 Cancelled Albumin Cancelled Lipase TSH Urine Color Urine Appearance (Clear) Urine pH (4.5-7.5) Ur Specific [place] (1.000-1.030) Urine Protein (Negative) Urine Glucose (UA) (Negative) Urine Ketones (Negative) Urine Blood (Negative) Urine Nitrite (Negative) Urine Bilirubin (Negative) Urine Urobilinogen (Negative) Ur Leukocyte Esterase (Negative) Urine Osmolality (500-800) mOsm/kg Ur Random Sodium mmol/L Urine Opiates Screen (Neg) Ur Methadone, Qual (Neg) Urine Fentanyl Screen (Neg) Urine Barbiturates (Neg) Ur Phencyclidine (PCP) (Neg) U Amphetamin/Meth Scrn (Neg) MDMA (Ecstasy) Screen (Neg) U Benzodiazepines Scrn (Neg) Ur Cocaine Metabolite (Neg) U Marijuana (THC) Screen (Neg) Ethyl Alcohol mg/dL (<10.0) mg/dl 02/02/24 02/02/24 02/02/24 Range/Units 02:11 02:11 02:11 WBC (4.8-10.8) K/ul RBC (4.70-6.10) M/uL Hgb (14.0-18.0) g/dl Hct (42.0-52.0) % MCV (80.0-100.0) fL MCH (25.0-34.0) pg MCHC (32.0-36.0) g/dL RDW Std Deviation (36.4-46.3) fL RDW Coeff of Randall (11.5-14.5) % Plt Count (130-400) K/uL MPV (9.4-12.4) fL Anisocytosis Macrocytosis Pappenheimer Bodies Target Cells Stomatocytes PT (9.0-12.0) Seconds INR (0.9-1.1) VBG pH (7.36-7.41) VBG pCO2 (38-50) mmHg VBG pO2 mmHg VBG HCO3 mmol/L VBG O2 Saturation % VBG Base Excess mEq/L Sodium Potassium Chloride Carbon Dioxide Anion Gap BUN Creatinine Est Cr Clr Drug Dosing Est GFR ( Amer) Est GFR (Non-Af Amer) BUN/Creatinine Ratio Glucose Osmolality (280-300) mOsm/kg Lactate (0.4-2.0) mmol/L Calcium Magnesium (1.7-2.4) mg/dl Total Bilirubin 10.2 H Direct Bilirubin 6.6 H Cancelled AST 303 H Cancelled ALT Cancelled Alkaline Phosphatase Ammonia (18-72) umol/L Total Creatine Kinase (30-223) U/L Troponin I High Sens (0-20) pg/ml Total Protein Albumin Lipase TSH Urine Color Urine Appearance (Clear) Urine pH (4.5-7.5) Ur Specific [place] (1.000-1.030) Urine Protein (Negative) Urine Glucose (UA) (Negative) Urine Ketones (Negative) Urine Blood (Negative) Urine Nitrite (Negative) Urine Bilirubin (Negative) Urine Urobilinogen (Negative) Ur Leukocyte Esterase (Negative) Urine Osmolality (500-800) mOsm/kg Ur Random Sodium mmol/L Urine Opiates Screen (Neg) Ur Methadone, Qual (Neg) Urine Fentanyl Screen (Neg) Urine Barbiturates (Neg) Ur Phencyclidine (PCP) (Neg) U Amphetamin/Meth Scrn (Neg) MDMA (Ecstasy) Screen (Neg) U Benzodiazepines Scrn (Neg) Ur Cocaine Metabolite (Neg) U Marijuana (THC) Screen (Neg) Ethyl Alcohol mg/dL (<10.0) mg/dl 02/02/24 02/02/24 02/02/24 Range/Units 02:11 02:11 02:11 WBC (4.8-10.8) K/ul RBC (4.70-6.10) M/uL Hgb (14.0-18.0) g/dl Hct (42.0-52.0) % MCV (80.0-100.0) fL MCH (25.0-34.0) pg MCHC (32.0-36.0) g/dL RDW Std Deviation (36.4-46.3) fL RDW Coeff of Randall (11.5-14.5) % Plt Count (130-400) K/uL MPV (9.4-12.4) fL Anisocytosis Macrocytosis Pappenheimer Bodies Target Cells Stomatocytes PT (9.0-12.0) Seconds INR (0.9-1.1) VBG pH (7.36-7.41) VBG pCO2 (38-50) mmHg VBG pO2 mmHg VBG HCO3 mmol/L VBG O2 Saturation % VBG Base Excess mEq/L Sodium Potassium Chloride Carbon Dioxide Anion Gap BUN Creatinine Est Cr Clr Drug Dosing Est GFR ( Amer) Est GFR (Non-Af Amer) BUN/Creatinine Ratio 4.3 L Glucose 146 H Cancelled Osmolality 284 (280-300) mOsm/kg Lactate (0.4-2.0) mmol/L Calcium 8.4 L Cancelled Magnesium 1.0 L (1.7-2.4) mg/dl Total Bilirubin Cancelled Direct Bilirubin AST ALT Alkaline Phosphatase Ammonia (18-72) umol/L Total Creatine Kinase (30-223) U/L Troponin I High Sens (0-20) pg/ml Total Protein Albumin Lipase TSH Urine Color Urine Appearance (Clear) Urine pH (4.5-7.5) Ur Specific [place] (1.000-1.030) Urine Protein (Negative) Urine Glucose (UA) (Negative) Urine Ketones (Negative) Urine Blood (Negative) Urine Nitrite (Negative) Urine Bilirubin (Negative) Urine Urobilinogen (Negative) Ur Leukocyte Esterase (Negative) Urine Osmolality (500-800) mOsm/kg Ur Random Sodium mmol/L Urine Opiates Screen (Neg) Ur Methadone, Qual (Neg) Urine Fentanyl Screen (Neg) Urine Barbiturates (Neg) Ur Phencyclidine (PCP) (Neg) U Amphetamin/Meth Scrn (Neg) MDMA (Ecstasy) Screen (Neg) U Benzodiazepines Scrn (Neg) Ur Cocaine Metabolite (Neg) U Marijuana (THC) Screen (Neg) Ethyl Alcohol mg/dL (<10.0) mg/dl 02/02/24 02/02/24 02/02/24 Range/Units 02:11 02:11 02:11 WBC (4.8-10.8) K/ul RBC (4.70-6.10) M/uL Hgb (14.0-18.0) g/dl Hct (42.0-52.0) % MCV (80.0-100.0) fL MCH (25.0-34.0) pg MCHC (32.0-36.0) g/dL RDW Std Deviation (36.4-46.3) fL RDW Coeff of Randall (11.5-14.5) % Plt Count (130-400) K/uL MPV (9.4-12.4) fL Anisocytosis Macrocytosis Pappenheimer Bodies Target Cells Stomatocytes PT (9.0-12.0) Seconds INR (0.9-1.1) VBG pH (7.36-7.41) VBG pCO2 (38-50) mmHg VBG pO2 mmHg VBG HCO3 mmol/L VBG O2 Saturation % VBG Base Excess mEq/L Sodium Potassium Chloride Carbon Dioxide Anion Gap BUN Creatinine Est Cr Clr Drug Dosing 119.2 Est GFR ( Amer) 135.9 Cancelled Est GFR (Non-Af Amer) 117.2 Cancelled BUN/Creatinine Ratio Cancelled Glucose Osmolality (280-300) mOsm/kg Lactate (0.4-2.0) mmol/L Calcium Magnesium (1.7-2.4) mg/dl Total Bilirubin Direct Bilirubin AST ALT Alkaline Phosphatase Ammonia (18-72) umol/L Total Creatine Kinase (30-223) U/L Troponin I High Sens (0-20) pg/ml Total Protein Albumin Lipase TSH Urine Color Urine Appearance (Clear) Urine pH (4.5-7.5) Ur Specific [place] (1.000-1.030) Urine Protein (Negative) Urine Glucose (UA) (Negative) Urine Ketones (Negative) Urine Blood (Negative) Urine Nitrite (Negative) Urine Bilirubin (Negative) Urine Urobilinogen (Negative) Ur Leukocyte Esterase (Negative) Urine Osmolality (500-800) mOsm/kg Ur Random Sodium mmol/L Urine Opiates Screen (Neg) Ur Methadone, Qual (Neg) Urine Fentanyl Screen (Neg) Urine Barbiturates (Neg) Ur Phencyclidine (PCP) (Neg) U Amphetamin/Meth Scrn (Neg) MDMA (Ecstasy) Screen (Neg) U Benzodiazepines Scrn (Neg) Ur Cocaine Metabolite (Neg) U Marijuana (THC) Screen (Neg) Ethyl Alcohol mg/dL (<10.0) mg/dl 02/02/24 02/02/24 02/02/24 Range/Units 02:11 02:11 02:11 WBC (4.8-10.8) K/ul RBC (4.70-6.10) M/uL Hgb (14.0-18.0) g/dl Hct (42.0-52.0) % MCV (80.0-100.0) fL MCH (25.0-34.0) pg MCHC (32.0-36.0) g/dL RDW Std Deviation (36.4-46.3) fL RDW Coeff of Randall (11.5-14.5) % Plt Count (130-400) K/uL MPV (9.4-12.4) fL Anisocytosis Macrocytosis Pappenheimer Bodies Target Cells Stomatocytes PT (9.0-12.0) Seconds INR (0.9-1.1) VBG pH (7.36-7.41) VBG pCO2 (38-50) mmHg VBG pO2 mmHg VBG HCO3 mmol/L VBG O2 Saturation % VBG Base Excess mEq/L Sodium Potassium Chloride Carbon Dioxide Anion Gap 18 H BUN 3 L Cancelled Creatinine 0.70 Cancelled Est Cr Clr Drug Dosing Cancelled Est GFR ( Amer) Est GFR (Non-Af Amer) BUN/Creatinine Ratio Glucose Osmolality (280-300) mOsm/kg Lactate (0.4-2.0) mmol/L Calcium Magnesium (1.7-2.4) mg/dl Total Bilirubin Direct Bilirubin AST ALT Alkaline Phosphatase Ammonia (18-72) umol/L Total Creatine Kinase (30-223) U/L Troponin I High Sens (0-20) pg/ml Total Protein Albumin Lipase TSH Urine Color Urine Appearance (Clear) Urine pH (4.5-7.5) Ur Specific [place] (1.000-1.030) Urine Protein (Negative) Urine Glucose (UA) (Negative) Urine Ketones (Negative) Urine Blood (Negative) Urine Nitrite (Negative) Urine Bilirubin (Negative) Urine Urobilinogen (Negative) Ur Leukocyte Esterase (Negative) Urine Osmolality (500-800) mOsm/kg Ur Random Sodium mmol/L Urine Opiates Screen (Neg) Ur Methadone, Qual (Neg) Urine Fentanyl Screen (Neg) Urine Barbiturates (Neg) Ur Phencyclidine (PCP) (Neg) U Amphetamin/Meth Scrn (Neg) MDMA (Ecstasy) Screen (Neg) U Benzodiazepines Scrn (Neg) Ur Cocaine Metabolite (Neg) U Marijuana (THC) Screen (Neg) Ethyl Alcohol mg/dL (<10.0) mg/dl 02/02/24 02/02/24 02/02/24 Range/Units 02:11 02:11 02:11 WBC (4.8-10.8) K/ul RBC (4.70-6.10) M/uL Hgb (14.0-18.0) g/dl Hct (42.0-52.0) % MCV (80.0-100.0) fL MCH (25.0-34.0) pg MCHC (32.0-36.0) g/dL RDW Std Deviation (36.4-46.3) fL RDW Coeff of Randall (11.5-14.5) % Plt Count (130-400) K/uL MPV (9.4-12.4) fL Anisocytosis Macrocytosis Pappenheimer Bodies Target Cells Stomatocytes PT (9.0-12.0) Seconds INR (0.9-1.1) VBG pH (7.36-7.41) VBG pCO2 (38-50) mmHg VBG pO2 mmHg VBG HCO3 mmol/L VBG O2 Saturation % VBG Base Excess mEq/L Sodium Potassium 2.9 L Chloride 79 L Cancelled Carbon Dioxide 26 Cancelled Anion Gap Cancelled BUN Creatinine Est Cr Clr Drug Dosing Est GFR ( Amer) Est GFR (Non-Af Amer) BUN/Creatinine Ratio Glucose Osmolality (280-300) mOsm/kg Lactate (0.4-2.0) mmol/L Calcium Magnesium (1.7-2.4) mg/dl Total Bilirubin Direct Bilirubin AST ALT Alkaline Phosphatase Ammonia (18-72) umol/L Total Creatine Kinase (30-223) U/L Troponin I High Sens (0-20) pg/ml Total Protein Albumin Lipase TSH Urine Color Urine Appearance (Clear) Urine pH (4.5-7.5) Ur Specific [place] (1.000-1.030) Urine Protein (Negative) Urine Glucose (UA) (Negative) Urine Ketones (Negative) Urine Blood (Negative) Urine Nitrite (Negative) Urine Bilirubin (Negative) Urine Urobilinogen (Negative) Ur Leukocyte Esterase (Negative) Urine Osmolality (500-800) mOsm/kg Ur Random Sodium mmol/L Urine Opiates Screen (Neg) Ur Methadone, Qual (Neg) Urine Fentanyl Screen (Neg) Urine Barbiturates (Neg) Ur Phencyclidine (PCP) (Neg) U Amphetamin/Meth Scrn (Neg) MDMA (Ecstasy) Screen (Neg) U Benzodiazepines Scrn (Neg) Ur Cocaine Metabolite (Neg) U Marijuana (THC) Screen (Neg) Ethyl Alcohol mg/dL (<10.0) mg/dl 02/02/24 02/02/24 Range/Units 02:11 02:11 WBC 7.80 (4.8-10.8) K/ul RBC 3.15 L (4.70-6.10) M/uL Hgb 10.5 L (14.0-18.0) g/dl Hct 27.0 L (42.0-52.0) % MCV 85.7 (80.0-100.0) fL MCH 33.3 (25.0-34.0) pg MCHC 38.9 H (32.0-36.0) g/dL RDW Std Deviation 68.0 H (36.4-46.3) fL RDW Coeff of Randall 22.5 H (11.5-14.5) % Plt Count 150 (130-400) K/uL MPV 11.4 (9.4-12.4) fL Anisocytosis Present Macrocytosis Present Pappenheimer Bodies 1+ Target Cells 3+ Stomatocytes 1+ PT 14.1 H (9.0-12.0) Seconds INR 1.3 H (0.9-1.1) VBG pH (7.36-7.41) VBG pCO2 (38-50) mmHg VBG pO2 mmHg VBG HCO3 mmol/L VBG O2 Saturation % VBG Base Excess mEq/L Sodium 123 L Cancelled Potassium Cancelled Chloride Carbon Dioxide Anion Gap BUN Creatinine Est Cr Clr Drug Dosing Est GFR ( Amer) Est GFR (Non-Af Amer) BUN/Creatinine Ratio Glucose Osmolality (280-300) mOsm/kg Lactate (0.4-2.0) mmol/L Calcium Magnesium (1.7-2.4) mg/dl Total Bilirubin Direct Bilirubin AST ALT Alkaline Phosphatase Ammonia (18-72) umol/L Total Creatine Kinase (30-223) U/L Troponin I High Sens (0-20) pg/ml Total Protein Albumin Lipase TSH Urine Color Urine Appearance (Clear) Urine pH (4.5-7.5) Ur Specific [place] (1.000-1.030) Urine Protein (Negative) Urine Glucose (UA) (Negative) Urine Ketones (Negative) Urine Blood (Negative) Urine Nitrite (Negative) Urine Bilirubin (Negative) Urine Urobilinogen (Negative) Ur Leukocyte Esterase (Negative) Urine Osmolality (500-800) mOsm/kg Ur Random Sodium mmol/L Urine Opiates Screen (Neg) Ur Methadone, Qual (Neg) Urine Fentanyl Screen (Neg) Urine Barbiturates (Neg) Ur Phencyclidine (PCP) (Neg) U Amphetamin/Meth Scrn (Neg) MDMA (Ecstasy) Screen (Neg) U Benzodiazepines Scrn (Neg) Ur Cocaine Metabolite (Neg) U Marijuana (THC) Screen (Neg) Ethyl Alcohol mg/dL (<10.0) mg/dl PG Care Time/CCT Total # of Minutes Spent Total Time Spent with Patient: Total time spent is greater than 50% in coordination of care (as documented) at patient's floor/unit and/or counseling patient: Coding Level of Care Code 26956 IN/OBS CONSULT LVL 4,60M Diagnoses Alcohol withdrawal F10.931 Complication of substance-induced condition: with delirium (1) Alcohol withdrawal Complication of substance-induced condition: with delirium Qualified Code(s): F10.931 - Alcohol use, unspecified with withdrawal delirium
--- OUTSIDE RECORDS SUMMARY | 2024-02-02 09:55 | External Medical Summary ---
Author Name Unknown Address Unknown Organization [id number] [place] [address] Laboratory Report Ordering Provider Test Date Status JO GIL 09/22/2023 10:18:02 Final Observation Date Value Abnormality Reference (Units ) Status SYNC LEUKOCYTES IN BLOOD BY AUTOMATED COUNT 09/22/2023 10:18:02 10.10 4.00-10.80 (K/uL) Final Segs 09/22/2023 10:18:02 63.0 40.0-75.0 (%) Final Lymphs % 09/22/2023 10:18:02 18.0 18.0-42.0 (%) Final Monos 09/22/2023 10:18:02 16.7 Above high normal 1.0-11.0 (%) Final Eosinophils 09/22/2023 10:18:02 1.7 0.0-6.0 (%) Final Basos 09/22/2023 10:18:02 0.6 0.0-2.0 (%) Final Absolute Segs 09/22/2023 10:18:02 6.36 1.80-7.70 (K/uL) Final Lymphs, absolute 09/22/2023 10:18:02 1.82 1.00-4.80 (K/ul) Final Monos, Abs 09/22/2023 10:18:02 1.69 Above high normal 0.00-1.10 (K/uL) Final Eos, Abs 09/22/2023 10:18:02 0.17 0.00-0.70 (K/uL) Final Basos, Abs 09/22/2023 10:18:02 0.06 0.00-0.20 (K/uL) Final Performing Location [facility] [place] [id number]
--- OUTSIDE RECORDS SUMMARY | 2024-02-02 09:55 | External Medical Summary | Summary of Care ---
Author Name Unknown Organization [facility] Address [address] [place] [address] Phone [phone] Care Team Providers Care Nitro Man Name Role Phone Hannah Albrecht Primary Care Provider Reason for Referral * Evaluate & Treat - Unlimited Visits (Within 30 days (routine)) - Pending Review Specialty Diagnoses / Procedures Referred By Tesfaye roche Referred To Contact General Surgery Diagnoses Umbilical hernia without obstruction and without gangrene Daya Boothe MD [address] [place] [address] Referral ID Status Reason Start Date Expiration Date Visits Requested Visits Authorized [id number] Pending Review Specialty Services Required 09/22/[phone] Question Answer Referral Priority Within 30 days (routine) Where should this appointment be scheduled? [facility] What condition is the patient being seen for? General Surgery Conditions What condition is the patient being seen for? Hernia (excluding Hiatal) * Evaluate & Treat - Unlimited Visits (Within 30 days (routine)) - Pending Review Specialty Diagnoses / Procedures Referred By Tesfaye roche Referred To Contact Gastroenterology Diagnoses Alcoholic cirrhosis of liver with ascites (HCC) Daya Boothe MD [address] [place] [address] Referral ID Status Reason Start Date Expiration Date Visits Requested Visits Authorized [id number] Pending Review Specialty Services Required 09/22/2023 [id number] Question Answer Referral Priority Within 30 days (routine) Where should this appointment be scheduled? [facility] For what condition is the patient being referred? All Gastro Conditions * Evaluate & Treat - Unlimited Visits (Within 30 days (routine)) - Pending Review Specialty Diagnoses / Procedures Referred By Tesfaye roche Referred To Contact Nephrology Diagnoses Chronic hyponatremia Daya Boothe MD [address] [facility] [place] [address] Referral ID Status Reason Start Date Expiration Date Visits Requested Visits Authorized [id number] Pending Review Specialty Services Required 09/22/[phone] Question Answer Referral Priority Within 30 days (routine) Where should this appointment be scheduled? [facility] What condition is this patient being seen for? Other (please specify) Reason for Visit * Reason Onset Date Comments Hospital Follow-Up Hospital Follow-Up 09/22/2023 Encounter Details Date Type Department Care Team (Late st Contact Info) Description 09/22/2023 9:40 AM EDT Office Visit Family Practice [facility] [place] [address] [facility] [place] [address] Daya Boothe MD [address] [facility] [place] [address] Hospital discharge follow-up*; Community acquired pneumonia, unspecified laterality; Pleural effusion on right; Closed fracture of multiple ribs of right side with routine healing, subsequent encounter; Alcoholic cirrhosis of liver with ascites (HCC); Chronic hyponatremia; Pulmonary emphysema, unspecified emphysema type (HCC); Uncomplicated alcohol dependence (HCC); Umbilical hernia without obstruction and without gangrene Allergies Active Allergy Reactions Criticality Noted Date Comments Cat Dander Other (Please comment) 07/21/2021 Watery eyes and sneezing documented as of this encounter (statuses as of 10/12/2023) Medications Medication Sig Dispensed Refills Start Date End Date Status Multivitamin Adult Oral Tablet Take 1 Tablet by mouth in the morning. 0 Active Magnesium Oxide 400 (241.3 Mg) MG Oral Tablet Take 400 mg by mouth in the morning. 0 Active Folic Acid 1 MG Oral Tablet TAKE 1 TABLET BY MOUTH ONCE DAILY IN THE MORNING 0 12/08/2022 Active Pantoprazole Sodium 40 MG Oral Tablet Delayed Release (Protonix) Take 1 Tablet by mouth in the morning and 1 Tablet in the evening. 0 08/02/2023 Active Torsemide 20 MG Oral Tablet (Demadex) Take 0.5 Tablets by mouth in the morning. 0 08/03/2023 Active Potassium Chloride [place] ER 20 MEQ Oral Tablet Extended Release Take 10 mEq by mouth in the morning. 0 08/03/2023 Active Spironolactone 50 MG Oral Tablet (Aldactone) Take 1 Tablet by mouth in the morning and 1 Tablet before bedtime. 0 08/03/2023 Active Lactulose 10 GM/15ML Oral Solution (Constulose) Take 45 mL by mouth in the morning and 45 mL before bedtime. For a goal of 3-4 bowls movements per day. 0 08/03/2023 Active HYDROcodone-Acet aminophen 5-325 MG Oral Tablet 1 Tablet. 0 08/29/2023 Active Lidocaine 5 % External Patch (Lidoderm) Apply 1 Patch topically to affected area. 0 08/29/2023 Active Naloxone HCl 4 MG/0.1ML Nasal Liquid (Narcan Nasal) Administer 1 [place] into nostril. 0 08/29/2023 Active Ipratropium-Albu terol 0.5-2.5 (3) MG/3ML Inhalation Solution (Duoneb)Indicati ons:Pulmonary emphysema, unspecified emphysema type (HCC) Inhale 3 mL by mouth every 6 hours as needed for Wheezing. 3 mL 6 09/22/2023 Active Ipratropium-Albu terol 20-100 MCG/ACT Inhalation Aerosol Solution (Combivent Respimat)Indicat ions:Pulmonary emphysema, unspecified emphysema type (HCC) Inhale 1 Puff by mouth in the morning and 1 Puff at noon and 1 Puff in the evening and 1 Puff before bedtime. 4 g 6 09/22/2023 Active Ciprofloxacin HCl 500 MG Oral Tablet (Cipro) Take 1 Tablet by mouth in the morning. 0 08/02/2023 4 Discontinued Doxycycline Hyclate 100 MG Oral Capsule 1 Capsule. 0 09/14/2023 4 Discontinued Ipratropium-Albu terol 20-100 MCG/ACT Inhalation Aerosol Solution (Combivent Respimat) Inhale 1 Puff by mouth in the morning and 1 Puff at noon and 1 Puff in the evening and 1 Puff before bedtime. 0 4 Discontinued(Refi ll) Ipratropium-Albu terol 0.5-2.5 (3) MG/3ML Inhalation Solution (Duoneb) Inhale 3 mL by mouth every 6 hours as needed. 0 4 Discontinued(Refi ll) documented as of this encounter (statuses as of 10/12/2023) Active Problems Problem Noted Date Diagnosed Date Alcoholic cirrhosis of liver with ascites 2023 Pulmonary emphysema 09/22/2023 Hepatic steatosis 05/17/2022 Tobacco use 05/17/2022 Uncomplicated alcohol dependence 05/17/2022 Pulmonary nodule 05/17/2022 Subarachnoid hemorrhage 05/11/2022 documented as of this encounter (statuses as of 10/12/2023) Immunizations Name Administration Dates Next Due DT - Diptheria/Tetanus (PEDS) 07/27/2000 DTaP Dipth/Tet/Acell Pertussis (Infanrix), Peds 01/26/1988,03/29/1985,1983,05/16,1983 HEP A - Hepatitis A (Adult > 18 yrs) 09/06/2023 HEP B - Hepatitis B (Adole/H igh Risk Ped, 11-15 yrs 07/16/1998,02/02/1998,12/29/1997 IPV - Polio Virus Vaccine (Inact) 1987,1983,1983,03/21 MMR - Measles/Mumps/Rubella Vaccine 03/02/1992,1 1983 Meningococcal Conjugate Vacc ine (Menactra/Menveo) 01/31/2002 Seasonal Influenza, Quadrivalent, ID 04/26/2023 TDAP (age 11 and older)(Adacel) 12/02/2007 documented [...] on file documented as of this encounter Last Filed Vital Signs Vital Sign Reading Time Taken Comments Blood Pressure 118/62 09/22/2023 9:41 AM EDT Pulse 129 09/22/2023 9:41 AM EDT Temperature 37.2 C (98.9 F) 09/22/2023 9:41 AM ED T Respiratory Rate 16 09/22/2023 9:41 AM EDT Oxygen Saturation 97% 09/22/2023 9:41 AM EDT Inhaled Oxygen Concentration - - Weight 62.6 kg (138 lb 1.3 oz) 09/22/2023 9:41 A M EDT Height 170.2 cm (5' 7") 09/22/2023 9:41 AM EDT Body Mass Index 21.63 09/22/2023 9:41 AM EDT documented in this encounter Functional Status Functional Status Response [...] No 05/11/2022 documented as of this encounter Progress Notes * Daya Boothe MD - 09/22/2023 9:54 AM EDT Subjective Chief Complaint Patient presents with Hospital Follow-Up Hospital Follow-Up HPI: Killian Amin is a 38 year old male. The following issues were addressed today: Date of admission: 09/12/23 Date of discharge: 09/14/23 Hospital course: 38-year-old male patient with alcoholic cirrhosis, gastritis, history of alcohol withdrawal seizures, SAH, intracranial aneurysm, chronic hyponatremia, and chronic anemia presented to the ER with pleuritic right-sided chest pain and cough. He was admitted for community acquired pneumonia and pleural effusion. He underwent thoracentesis on 09/12/23 and was treated with Unasyn and doxycycline. Found to have right rib fractures. Nephrology consulted for chronic hyponatremia and hypokalemia. On discharge, torsemide was reduced to 10mg daily and he was started on spironolactone 12.5mg daily. Patient requested early discharge. Tests/studies pending at time of discharge: None Home/outpatient services ordered: None Course since hospitalization: Patient states he is feeling "about 95% better." Still having some rib pain and a cough. Finished outpatient antibiotics on Monday. He declines any recent EtOH use and is not interested in discussing available resources. Still needs to make follow-up appointments with GI and nephrology. His biggest concern today is umbilical hernia that has progressively become more uncomfortable. He would like to see general surgery to discuss options. Review of Systems: See HPI Objective BP 118/62 | Pulse 129 | Temp 37.2 C (98.9 F) (Tympanic) | Resp 16 | Ht 1.702 m (5' 7") | Wt 62.6 kg (138 lb 1.3 oz) | SpO2 97% | BMI 21.63 kg/m | BSA 1.72 m Wt Readings from Last 3 Encounters: 09/22/23 62.6 kg (138 lb 1.3 oz) 12/19/22 68 kg (150 lb) 11/28/22 66.5 kg (146 lb 11.2 oz) BP Readings from Last 3 Encounters: 09/22/23 118/62 12/19/22 120/71 11/28/22 110/70 General: No acute distress Head: Normocephalic and atraumatic Cardiovascular: Regular rate and rhythm, no murmur Respiratory: Good respiratory effort, breath sounds equal and clear to auscultation bilaterally Abdomen: Soft, non-distended, non-tender, normoactive bowel sounds, reducible umbilical hernia Extremities: No edema Neurological: Alert and oriented, no focal deficits noted Psychiatric: Appropriate mood and affect Assessment & Plan 1. Hospital discharge follow-up - DISCH MED RECON CUR MED LIS 2. Community acquired pneumonia, unspecified laterality 3. Pleural effusion on right Symptoms improving. Has completed outpatient course of antibiotics. Update CBC. - CBC WITH WBC DIFFERENTIAL; Future 4. Closed fracture of multiple ribs of right side with routine healing, subsequent encounter Pain improving. 5. Alcoholic cirrhosis of liver with ascites (HCC) Follow-up needed with GI/hepatology. - COMPREHENSIVE METABOLIC PANEL; Future - ADULT GASTROENTEROLOGY REFERRAL OP 6. Chronic hyponatremia - COMPREHENSIVE METABOLIC PANEL; Future - NEPHROLOGY REFERRAL OP 7. Pulmonary emphysema, unspecified emphysema type (HCC) - Ipratropium-Albuterol 0.5-2.5 (3) MG/3ML Inhalation Solution (Duoneb); Inhale 3 mL by mouth every6 hours as needed for Wheezing. Dispense: 3 mL; Refill: 6 - Ipratropium-Albuterol 20-100 MCG/ACT Inhalation Aerosol Solution (Combivent Respimat); Inhale 1 Puff by mouth in the morning and 1 Puff at noon and 1 Puff in the evening and 1 Puff before bedtime. Dispense: 4 g; Refill: 6 8. Uncomplicated alcohol dependence (HCC) Patient reports abstinence. 9. Umbilical hernia without obstruction and without gangrene - SURGERY REFERRAL OP Follow Up: Return for follow-up as scheduled or sooner as needed. | Check-out note: Labs today. Nephrology, GI, and surgery referrals ordered This note was electronically signed by Daya Boothe MD documented in this encounter Nursing Notes * Leora Watters LPN - 09/22/2023 9:40 AM EDT Patient presents today for a hospital follow up. He think she may have an umbilical hernia, he wanted to have looked at. He said that he is feeling better but he is still having sob. documented in this encounter Plan of Treatment Upcoming Encounters Date Type Department Care Team (Late st Contact Info) Description 12/27/2023 12:00 PM EDT Office Visit Gastroenterology, [address] [place] [address] Veronica Bustillos CRNP [address] [place] [address] 06/05/2024 11:20 AM EST Office Visit Nephrology, [facility] [address] [facility] [place] [address] Marcus Napoles MD [address] [facility] [place] [address] Scheduled Referrals Name Type Priority Associated Diagnoses Orde r Schedule NEPHROLOGY REFERRAL OP Referral Within 30 days (routine) Chronic hyponatremia Ordered: 09/22/2023 ADULT GASTROENTEROLOGY REFERRAL OP Referral Within 30 days (routine) Alcoholic cirrhosis of liver with ascites (HCC) Ordered: 09/22/2023 SURGERY REFERRAL OP Referral Within 30 da ys (routine) Umbilical hernia without obstruction and without gangrene Ordered: 09/22/2023 Health Maintenance Due Date Last Done Comments DISCUSS TOBACCO CESSATION (REFER TO SMARTSET #[id number]) 1983 Lipid Panel 1983 Pneumococcal Vaccine: Pediatrics (0 to 5 Years) and At-Risk Patients (6 to 64 Years) (1 of 2 - PCV) 1989 Depression Screening 1995 HIV Screening 1998 Alpha-1 Antitrypsin 2001 Hepatitis C Screening 2001 DTaP,Tdap,and Td Vaccines (8 - Td or Tdap) 12/01/2017 12/02/2007, 07/27/2000, 01/26/1988, Additional history exists COVID-19 Vaccine ( season) 2023 11/04/2020, 10/14/2020 *COPD SEVERITY VERIFIED BY PFT 09/24/2023 O2 ASSESSMENT COMPLETED IN PAST YEAR FOR COPD 09/24/2024 09/25/2023 Hepatitis B Completed 07/16/1998, 01/17, 12/29/1997 MENINGOCOCCAL (MENACTRA/MENVEO) Aged Out 01/31/2002 No longer eligible based on patient's age to complete this topic Influenza Vaccine (FLU shot) Completed 04/26/2023 GARDASIL-HPV IMMUNIZATION SERIES Aged Out No longer eligible based on patient's age to complete this topic documented as of this encounter Medical Devices Implanted Type Area Extractor Plant Operator Device Identifier Shelf Expiration Date Model / Serial / Lot Angioseal Vip 6 Fr - [id number] Implanted:Qty : 1 on 05/11/2022 by Bandar Okeefe MD at [place] [facility] [place] Right: [employer] [id number] 02/16/2023 [id number] / / [id number] documented as of this encounter Results * (ABNORMAL) COMPREHENSIVE METABOLIC PANEL (09/22/2023 10:18 AM EDT) BUN 6 6 - 20 mg/dL 09/22/2023 11:08 AM EDT [place] [id number] Creatinine 0.5(L) 0.6 - 1.2 mg/dL 09/22/2023 11:08 AM EDT [address] Estimated Glomerular Filtration Rate >90 >=60 mL/min 09/22/2023 11:08 AM T [address] Comment:eGFR is calculated b ased on the CKD-EPI 2020 equation Sodium 136 135 - 146 mmol/L 09/22/2023 11:08 AM EDT [address] Potassium 4.8 3.5 - 5.1 mmol/L 09/22/2023 11:08 AM T [address] Chloride 97(L) 98 - 107 mmol/L 09/22/2023 11:08 AM EDT [address] CO2 25 22 - 32 mmol/L 09/22/2023 11:08 AM EDT [address] Anion Gap 14 7 - 15 mmol/L 09/22/2023 11:08 AM EDT [address] Glucose 105 70 - 120 mg/dL 09/22/2023 11:08 AM EDT [address] Albumin 3.7(L) 3.8 - 5.0 g/dL 09/22/2023 11:08 AM EDT [facility] 56 AST 41 10 - 50 U/L 09/22/2023 11:08 AM EDT [facility] 56 Alkaline Phosphatase 348(H) 35 - 130 U/L 09/22/2023 11:08 AM T [address] Bilirubin, Total 0.5 <=1.2 mg/dL 09/22/2023 11:08 AM EDT [facility] 56- Calcium 10.1 8.4 - 10.2 mg/dL 09/22/2023 11:08 AM EDT [facility] 56- Protein 7.7 6.0 - 8.3 g/dL 09/22/2023 11:08 AM EDT [facility] 56- ALT 31 10 - 50 U/L 09/22/2023 11:08 AM EDT [facility] 56 Blood Venous blood specimen / Unknown Venipuncture / Unknown 09/22/2023 10:18 AM EDT 09/22/2023 10:18 AM EDT Daya Boothe MD LAB BLOOD ORDERABLES [facility] 56- [address] [facility] [place] [address] documented in this encounter Visit Diagnoses Diagnosis Hospital discharge follow-up- Primary Other follow-up examination Community acquired pneumonia, unspecified laterality Pleural effusion on right Unspecified pleural effusion Closed fracture of multiple ribs of right side with routine healing, subsequent encounter Alcoholic cirrhosis of liver with ascites (HCC) Alcoholic cirrhosis of liver Chronic hyponatremia Hyposmolality and/or hyponatremia Pulmonary emphysema, unspecified emphysema type (HCC) Uncomplicated alcohol dependence (HCC) Other and unspecified alcohol dependence, unspecified drinking behavior Umbilical hernia without obstruction and without gangrene documented in this encounter Advance Directives Latest [...] the patient have Health Care Power of Canvas Worker? No Care Teams Nitro Man Relationship Specialty Start Date End Date Hannah Albrecht DO [address] [facility] [place] [address] PCP - General Family Medicine 07/21/21 documented as of this encounter
--- OUTSIDE RECORDS SUMMARY | 2024-02-02 09:55 | External Medical Summary | Summary of Care ---
Author Name Unknown Organization [facility] Address [address] [place] [address] Phone [phone] Care Team Providers Care Atm Technician Name Role Phone Hannah Albrecht Primary Care Provider Reason for Visit * Reason Comments NEW PATIENT Umbilical hernia. * Evaluate & Treat - Unlimited Visits (Within 30 days (routine)) - Pending Review Specialty Diagnoses / Procedures Referred By Tesfaye t Referred To Contact General Surgery Diagnoses Umbilical hernia without obstruction and without gangrene Daya Boothe MD [address] [place] [address] Referral ID Status Reason Start Date Expiration Date Visits Requested Visits Authorized [id number] Pending Review Specialty Services Required 09/22/[phone] Encounter Details Date Type Department Care Team (Late st Contact Info) Description 09/22/2023 3:30 PM EDT Office Visit General Surgery, [facility] [address] [facility] [place] [place] [address] Cesar Hunt MD [facility] [place] [address] Umbilical hernia without obstruction and without gangrene* Allergies Active Allergy Reactions Criticality Noted Date Comments Cat Dander Other (Please comment) 07/21/2021 Watery eyes and sneezing documented as of this encounter (statuses as of 09/22/2023) Medications Medication Sig Dispensed Refills Start Date [...] bowls movements per day. 0 08/03/2023 Active HYDROcodone-Acetamino phen 5-325 MG Oral Tablet 1 Tablet. 0 08/29/2023 Active Lidocaine 5 % External Patch (Lidoderm) Apply 1 Patch topically to affected area. 0 08/29/2023 Active Naloxone HCl 4 MG/0.1ML Nasal Liquid (Narcan Nasal) Administer 1 Pep into nostril. 0 08/29/2023 Active Ipratropium-Albuterol 0.5-2.5 (3) MG/3ML Inhalation Solution (Duoneb)Indications:P ulmonary emphysema, unspecified emphysema type (HCC) Inhale 3 mL by mouth every 6 hours as needed for Wheezing. 3 mL 6 09/22/2023 Active Ipratropium-Albuterol 20-100 MCG/ACT Inhalation Aerosol Solution (Combivent Respimat)Indications: Pulmonary emphysema, unspecified emphysema type (HCC) Inhale 1 Puff by mouth in the morning and 1 Puff at noon and 1 Puff in the evening and 1 Puff before bedtime. 4 g 6 09/22/2023 Active documented as of this encounter (statuses as of 09/22/2023) Active Problems Problem Noted Date Diagnosed Date Alcoholic cirrhosis of liver with ascites 2023 Pulmonary emphysema 09/22/2023 Hepatic steatosis 05/17/2022 Tobacco use 05/17/2022 Uncomplicated alcohol dependence 05/17/2022 Pulmonary nodule 05/17/2022 Subarachnoid hemorrhage 05/11/2022 documented as of this encounter (statuses as of 09/22/2023) Immunizations Name Administration Dates Next Due DT [...] Sign Reading Time Taken Comments Blood Pressure 123/72 09/22/2023 3:13 PM EDT Pulse 107 09/22/2023 3:13 PM EDT Temperature - - Respiratory Rate - - Oxygen Saturation - - Inhaled Oxygen Concentration - - Weight 63.5 kg (140 lb) 09/22/2023 3:13 PM EDT Height - - Body Mass Index 21.93 09/22/2023 9:41 AM EDT documented in this [...] as of this encounter Progress Notes * Cesar Hunt MD - 09/22/2023 3:54 PM EDT SUBJECTIVE: Killian Amin is a 38 year old male. Chief Complaint Patient presents with NEW PATIENT Umbilical hernia. HPI: 38-year-old gentleman with cirrhosis who was recently hospitalized for pneumonia presents to discuss umbilical hernia. He has had this for a few months and states it is slowly enlarging. He doeshave some pain with this. Of note, he has had ascites drained multiple times, most recently 2 months ago. He has just been discharged from the hospital following pneumonia with reactive effusion. He denies fevers or chills. He states shortness of breath is improving. Past Medical History: Diagnosis Date Allergic rhinitis due to other allergen Asthma, allergic Back disorder Past Surgical History: Procedure Laterality Date CAROTID (INTERNAL) ARTERY CATHETHER PLACEMENT N/A 05/11/2022 CATHETER PLACEMENT INTERNAL CAROTID ARTERY performed by Bandar Okeefe MD at [place] [facility] VERTEBRAL ARTERY CATHETER PLACEMENT N/A 05/11/2022 CATHETER PLACEMENT VERTEBRAL ARTERY, performed by Bandar Okeefe MD at [facility] Current Outpatient Medications Medication Sig Dispense Refill Multivitamin Adult Oral Tablet Take 1 Tablet by mouth in the morning. Magnesium Oxide 400 (241.3 Mg) MG Oral Tablet Take 400 mg by mouth in the morning. Folic Acid 1 MG Oral Tablet TAKE 1 TABLET BY MOUTH ONCE DAILY IN THE MORNING Pantoprazole Sodium 40 MG Oral Tablet Delayed Release (Protonix) Take 1 Tablet by mouth in the morning and 1 Tablet in the evening. Torsemide 20 MG Oral Tablet (Demadex) Take 2 Tablets by mouth in the morning and 2 Tablets in the evening. Potassium Chloride Sandy ER 20 MEQ Oral Tablet Extended Release Take 1 Tablet by mouth in the morning and 1 Tablet at noon and 1 Tablet before bedtime. Spironolactone 50 MG Oral Tablet (Aldactone) Take 1 Tablet by mouth in the morning and 1 Tablet before bedtime. Lactulose 10 GM/15ML Oral Solution (Constulose) Take 45 mL by mouth in the morning and 45 mL beforebedtime. For a goal of 3-4 bowls movements per day. HYDROcodone-Acetaminophen 5-325 MG Oral Tablet 1 Tablet. Lidocaine 5 % External Patch (Lidoderm) Apply 1 Patch topically to affected area. Naloxone HCl 4 MG/0.1ML Nasal Liquid (Narcan Nasal) Administer 1 Pep into nostril. Ipratropium-Albuterol 0.5-2.5 (3) MG/3ML Inhalation Solution (Duoneb) Inhale 3 mL by mouth every 6 hours as needed for Wheezing. 3 mL 6 Ipratropium-Albuterol 20-100 MCG/ACT Inhalation Aerosol Solution (Combivent Respimat) Inhale 1 Puffby mouth in the morning and 1 Puff at noon and 1 Puff in the evening and 1 Puff before bedtime. 4 g6 No current facility-administered medications for this visit. Review of patient's allergies indicates: Allergen Reactions Cats [Cat Dander] Other (Please comment) Watery eyes and sneezing Social History: Social History Tobacco Use Smoking status: Every Day Smokeless tobacco: Never Substance Use Topics Alcohol use: Yes Vaping/E-Cigarette Use Vaping/E-Cigarette Substances Vaping/E-Cigarette Devices OBJECTIVE: PHYSICAL EXAM: BP 123/72 | Pulse 107 | Wt 63.5 kg (140 lb) | BMI 21.93 kg/m | BSA 1.73 m General: alert, healthy, and no distress Head: Normocephalic, No masses, lesions, tenderness or abnormalities Eye Exam: conjunctiva are pink and non-injected, sclera clear Heart: regular rate & rhythm, no murmur, and no gallops Lungs: chest symmetric with normal AP diameter, no chest deformities noted, positive findings: Decreased breath sounds right lower field Abdomen: abdomen soft, non-tender, no masses or organomegaly, and a small reducible umbilical hernia, mild tenderness to palpation Extremities: no edema, no clubbing, no cyanosis Skin: skin color, texture, turgor are normal, no rashes or significant lesions ASSESSMENT: K42.9 Umbilical hernia without obstruction and without gangrene (primary encounter diagnosis) PLAN: 38-year-old gentleman with cirrhosis presents with small umbilical hernia, mild tenderness to palpation. We had a long discussion about his hernia as well as the risks of repair with hepatic cirrhosis. We also discussed his hospitalization for the pneumonia. Given the history of ascites, hyponatremia, low platelets and low blood count, I would not recommend repair of the hernia at this time. I recommend keeping a journal of symptoms to see how much this is affecting his activities of daily living. If he does have this repaired, it would best be served at a tertiary care center. He will call with any new or concerning symptoms in the meantime. Cesar Hunt MD 09/22/2023 documented in this encounter Nursing Notes * Doug Figueredo MED ASSIST - 09/22/2023 3:14 PM EDT Chief Complaint Patient presents with NEW PATIENT Umbilical hernia. Verified patient. Some pain 08/26, patient is here with his mother today. documented in this encounter Plan of Treatment Upcoming Encounters Date Type Department Care Team (Late st Contact Info) Description 09/25/2023 9:40 AM EDT Office Visit Nephrology, [facility] [address] [place] [address] [address] Marcus Napoles MD [address] [place] [address] 10/09/2023 9:20 AM EDT Office Visit [facility] [address] [place] [place] [address] [address] Hannah Albrecht, [address] [place] [address] 12/27/2023 12:00 PM EDT Office Visit Gastroenterology, [facility] [address] [place] [place] [address] Veronica Bustillos CRNP [address] [place] [address] Scheduled Referrals Name Type Priority Associated Diagnoses Orde r Schedule SURGERY REFERRAL OP Referral Within 30 da ys (routine) Umbilical hernia without obstruction and without gangrene Ordered: 09/22/2023 Health Maintenance Due Date Last Done Comments DISCUSS TOBACCO CESSATION (REFER TO SMARTSET #3296) 1983 Lipid Panel 1983 Pneumococcal Vaccine: Pediatrics (0 to 5 Years) and At-Risk Patients (6 to 64 Years) (1 of 2 - PCV) 1989 Depression Screening 1995 HIV Screening 1998 Alpha-1 Antitrypsin 2001 Hepatitis C Screening 2001 DTaP,Tdap,and Td Vaccines (8 - Td or Tdap) 12/01/2017 12/02/2007, 07/27/2000, 01/26/1988, Additional history exists COVID-19 Vaccine ( season) 2023 11/04/2020, 10/14/2020 O2 ASSESSMENT COMPLETED IN PAST YEAR FOR COPD 09/21/2024 09/22/2023 Hepatitis B Completed 07/16/1998, 01/17, 12/29/1997 MENINGOCOCCAL (MENACTRA/MENVEO) Aged Out 01/31/2002 No longer eligible based on patient's age to complete this topic Influenza Vaccine (FLU shot) Completed 04/26/2023 GARDASIL-HPV IMMUNIZATION SERIES Aged Out No longer eligible based on patient's age to complete this topic documented as of this encounter Medical Devices Implanted Type Area Heliotherapist Device Identifier Shelf Expiration Date Model / Serial / Lot Angioseal Vip 6 Fr - [id number] Implanted:Qty : 1 on 05/11/2022 by Bandar Okeefe MD at [place] [facility] [employer] [id number] 02/16/2023 [id number] / / [id number] documented as of this encounter Visit Diagnoses Diagnosis Umbilical hernia without obstruction and without gangrene- Primary documented in this encounter Advance Directives Latest [...] the patient have Health Care Power of Web Mobile Designer? No Care Teams Atm Technician Relationship Specialty Start Date End Date Hannah Albrecht DO [address] [place] [address] PCP - General Family Medicine 07/21/21 documented as of this encounter"
--- OUTSIDE RECORDS SUMMARY | 2024-02-02 09:55 | External Medical Summary ---
Author Name Unknown Address Unknown Organization K09:[facility] [place] [address] Laboratory Report Ordering Provider Test Date Status JO GIL 09/22/2023 10:18:02 Final Observation Date Value Abnormality Reference (Units ) Status BUN 09/22/2023 10:18:02 6 6-20 (mg/dL) Final Creatinine 09/22/2023 10:18:02 0.5 Below low normal 0.6-1.2 (mg/dL) Final Glomerular filtration rate/1.73 sq M.predicted [Volume Rate/Area] in Serum, Plasma or Blood by Creatinine-based formula (CKD-EPI) 09/22/2023 10:18:02 >90 >=60 (mL/min) Final eGFR is calculated based on the CKD-EPI 2020 equation Sodium 09/22/2023 10:18:02 136 135-146 (m mol/L) Final Potassium 09/22/2023 10:18:02 4.8 3.5-5.1 (m mol/L) Final Cl 09/22/2023 10:18:02 97 Below low normal 98- 107 (mmol/L) Final CO2 09/22/2023 10:18:02 25 22-32 (mmo l/L) Final Anion gap 09/22/2023 10:18:02 14 7-15 (mmol /L) Final Glucose 09/22/2023 10:18:02 105 70-120 (mg /dL) Final Albumin 09/22/2023 10:18:02 3.7 Below low normal 3.8 -5.0 (g/dL) Final AST (Aspartate aminotransferase) 09/22/2023 10:18:02 41 10-50 (U/L) Fin al Alk Phos 09/22/2023 10:18:02 348 Above high normal 35 -130 (U/L) Final Bilirubin, Total 09/22/2023 10:18:02 0.5 <=1 .2 (mg/dL) Final Calcium 09/22/2023 10:18:02 10.1 8.4-10.2 ( mg/dL) Final Protein 09/22/2023 10:18:02 7.7 6.0-8.3 (g /dL) Final ALT (Alanine aminotransferase) 09/22/2023 10:18:02 31 10-50 (U/L) Mika strong Performing Location [facility] [place] [address]
--- OUTSIDE RECORDS SUMMARY | 2024-02-02 09:55 | External Medical Summary | Summary of Care ---
Author Name Unknown Organization [facility] Address [address] [place] [address] Phone [phone] Care Team Providers Care Liquefied Petroleum Gasfitter Name Role Phone Hannah Albrecht Primary Care Provider Reason for Visit * Reason Comments Outpatient Testing Encounter Details Date Type Department Care Team (Late st Contact Info) Description 09/22/2023 10:30 AM EDT Laboratory Laboratory [facility] [place] [address] [place] [id number] [facility] [address] [place] [address] Community acquired pneumonia, unspecified laterality; Alcoholic cirrhosis of liver with ascites (HCC); Chronic hyponatremia Allergies Active Allergy Reactions Criticality Noted Date [...] MG/0.1ML Nasal Liquid (Narcan Nasal) Administer 1 [place] into nostril. 0 08/29/2023 Active Ipratropium-Albuterol 0.5-2.5 [...] No 05/11/2022 documented as of this encounter Plan of Treatment Upcoming Encounters Date Type Department Care Team (Late st Contact Info) Description 09/22/2023 3:30 PM EDT Office Visit General Surgery, [facility] [address] [place] [place] [address] Cesar Hunt MD [address] [place] [place] [address] 09/25/2023 9:40 AM EDT Office Visit Nephrology, [facility] [address] [facility] [place] [address] Marcus Napoles MD [address] [facility] [place] [address] 10/09/2023 9:20 AM EDT Office Visit Family Practice [facility] [address] [place] [address] Hannah Albrecht DO [address] [facility] [place] [place] [address] 12/27/2023 12:00 PM EDT Office Visit Gastroenterology, [facility] [address] [place] [address] Veronica Bustillos CRNP [address] [facility] [place] [address] Pending Results Name Type Priority Associated Diagnoses Date /Time COMPREHENSIVE METABOLIC PANEL Lab Routine Alcoholic cirrhosis of liver with ascites (HCC) Chronic hyponatremia 09/22/2023 10:18 AM EDT Health Maintenance Due Date Last Done Comments Lipid Panel 1983 Pneumococcal Vaccine: Pediatrics (0 to 5 Years) and At-Risk Patients (6 to 64 Years) (1 of 2 - PCV) 1989 Depression Screening 1995 HIV Screening 1998 Hepatitis C Screening 2001 DTaP,Tdap,and Td Vaccines (8 - Td or Tdap) 12/01/2017 12/02/2007, 07/27/2000, 01/26/1988, Additional history exists COVID-19 Vaccine (3 - season) 2023 11/04/2020, 10/14/2020 Hepatitis B Completed 07/16/1998, 01/17, 12/29/1997 MENINGOCOCCAL (MENACTRA/MENVEO) Aged Out 01/31/2002 No longer eligible based on patient's age to complete this topic Influenza Vaccine (FLU shot) Completed 04/26/2023 GARDASIL-HPV IMMUNIZATION SERIES Aged Out No longer eligible based on patient's age to complete this topic documented as of this encounter Medical Devices Implanted Type Area Wine Fermenter Device Identifier Shelf Expiration Date Model / Serial / Lot Angioseal Vip 6 Fr - [id number] Implanted:Qty : 1 on 05/11/2022 by Bandar Okeefe MD at [facility] Right: Groin [employer] [id number] 02/16/2023 [id number] / / [id number] documented as of this encounter Procedures Procedure Name Priority Date/Time Associated Diagnosis Comments DIFFERENTIAL, AUTOMATED Routine 09/22/2023 10:18 AM EDT Community acquired pneumonia, unspecified laterality CBC Routine 09/22/2023 10:18 AM EDT Community acquired pneumonia, unspecified laterality CBC Routine 09/22/2023 10:18 AM EDT Community acquired pneumonia, unspecified laterality documented in this encounter Results * (ABNORMAL) DIFFERENTIAL, AUTOMATED (09/22/2023 10:18 AM EDT) WBC 10.10 4.00 - 10.80 K/uL 09/22/2023 10:25 AM EDT [facility] Neutrophils % 63.0 40.0 - 75.0 % 09/22/2023 10:25 AM EDT [facility] Lymphocytes % 18.0 18.0 - 42.0 % 09/22/2023 10:25 AM EDT [facility] Monocytes % 16.7(H) 1.0 - 11.0 % 09/22/2023 10:25 AM EDT [facility] Eosinophils % 1.7 0.0 - 6.0 % 09/22/2023 10:25 AM EDT [facility] Basophils % 0.6 0.0 - 2.0 % 09/22/2023 10:25 AM EDT [facility] Absolute Neutrophils 6.36 1.80 - 7.70 K/uL 09/22/2023 10:25 AM EDT [facility] Absolute Lymphocytes 1.82 1.00 - 4.80 K/ul 09/22/2023 10:25 AM EDT [facility] Absolute Monocytes 1.69(H) 0.00 - 1.10 K/uL 09/22/2023 10:25 AM EDT [facility] Absolute Eosinophils 0.17 0.00 - 0.70 K/uL 09/22/2023 10:25 AM EDT [facility] Absolute Basophils 0.06 0.00 - 0.20 K/uL 09/22/2023 10:25 AM EDT [facility] Blood Venous blood specimen / Unknown Venipuncture / Unknown 09/22/2023 10:18 AM EDT 09/22/2023 10:18 AM EDT Daya Boothe MD LAB BLOOD ORDERABLES [facility] [address] [place] [address] * (ABNORMAL) CBC (09/22/2023 10:18 AM EDT) WBC 10.10 4.00 - 10.80 K/uL 09/22/2023 10:25 AM T [facility] RBC 2.87 4.50 - 5.25 M/uL 09/22/2023 10:25 AM EDT [facility] HGB 9.2(L) 14.0 - 16.8 g/dL 09/22/2023 10:25 AM EDT [facility] HCT 28.6(L) 40.0 - 48.4 % 09/22/2023 10:25 AM EDT [facility] MCV 99.7 82.0 - 99.5 fL 09/22/2023 10:25 AM EDT [facility] MCH 32.1 27.0 - 34.0 pg 09/22/2023 10:25 AM EDT [facility] MCHC 32.2 32.0 - 36.0 g/dL 09/22/2023 10:25 AM EDT [facility] 56 RDW 15.6 11.5 - 15.5 % 09/22/2023 10:25 AM EDT [facility] 56 PLT 622(H) 140 - 400 K/uL 09/22/2023 10:25 AM EDT [facility] MPV 7.8 6.6 - 11.1 fL 09/22/2023 10:25 AM EDT [facility] Blood Venous blood specimen / Unknown Venipuncture / Unknown 09/22/2023 10:18 AM EDT 09/22/2023 10:18 AM EDT Daya Boothe MD LAB BLOOD ORDERABLES [facility] [address] documented in this encounter Visit Diagnoses Diagnosis Community acquired pneumonia, unspecified laterality Alcoholic cirrhosis of liver with ascites (HCC) Alcoholic cirrhosis of liver Chronic hyponatremia Hyposmolality and/or hyponatremia documented in this encounter Advance Directives Latest [...] the patient have Health Care Power of Nurse Assessor? No Care Teams Liquefied Petroleum Gasfitter Relationship Specialty Start Date End Date Hannah lAbrecht DO [address] [facility] [place] [address] PCP - General Family Medicine 07/21/21 documented as of this encounter
--- OUTSIDE RECORDS SUMMARY | 2024-02-02 09:55 | External Medical Summary | Summary of Care ---
Author Name Unknown Organization [facility] Address [address] [place] [address] Phone [phone] Care Team Providers Care Under Baster Name Role Phone Hannah Albrecht DO Primary Care Provider Reason for Visit * Reason Onset Date Comments Hospital Follow-Up 08/03/2023 Encounter Details Date Type Department Care Team (Late st Contact Info) Description 08/03/2023 Telephone General Internal Medicine [facility] [place] [address] [place] [address] Hannah Albrecht DO [address] [place] [address] Hospital Follow-Up Allergies Active Allergy Reactions Criticality Noted Date Comments Cat Dander Other (Please comment) 07/21/2021 Watery eyes and sneezing documented as of this encounter (statuses as of 11/02/2023) Medications Medication Sig Dispensed Refills Start Date [...] bowls movements per day. 0 08/03/2023 Active Ciprofloxacin HCl 500 MG Oral Tablet (Cipro) Take 1 Tablet by mouth in the morning. 0 08/02/2023 09/22/2023 Discontinued documented as of this encounter (statuses as of 11/02/2023) Active Problems Problem Noted Date Diagnosed Date Alcoholic cirrhosis of liver with ascites 2023 Pulmonary emphysema 09/22/2023 Hepatic steatosis 05/17/2022 Tobacco use 05/17/2022 Uncomplicated alcohol dependence 05/17/2022 Pulmonary nodule 05/17/2022 Subarachnoid hemorrhage 05/11/2022 documented as of this encounter (statuses as of 11/02/2023) Immunizations Name Administration Dates Next Due DT [...] encounter Miscellaneous Notes * Telephone Encounter - Kavita Madsen RN - 08/03/2023 4:00 PM EST Please call to schedule Hospital follow up visit Dr Mcdonough at [facility] Office. * Telephone Encounter - Jacobo Alvarado RN - 08/03/2023 3:21 PM EST Patient discharged from [facility] 08/02/23 to home. Nephrology consulted for hyponatremia, hypokalemia. Please determine if patient will need a hospital follow up appointment with Nephrology. Thank you documented in this encounter Plan of Treatment Upcoming Encounters Date Type Department Care Team (Late st Contact Info) Description 12/27/2023 12:00 PM EDT Office Visit Gastroenterology, [facility] [address] [place] [address] Veronica Bustillos CRNP [address] [place] [address] 06/05/2024 11:20 AM EST Office Visit Nephrology, [facility] [address] [facility] [place] [address] Marcus Napoles MD [address] [facility] [place] [address] Health Maintenance Due Date Last Done Comments DISCUSS TOBACCO CESSATION (REFER TO SMARTSET #3291) 1983 Lipid Panel 1983 Pneumococcal Vaccine: Pediatrics [...] this encounter Medical Devices Implanted Type Area Molten Iron Pourer Device Identifier Shelf Expiration Date Model / Serial / Lot Angioseal Vip 6 Fr - [id number] Implanted:Qty : 1 on 05/11/2022 by Bandar Okeefe MD at [place] [facility] Right: Groin [employer] [id number] 02/16/2023 [id number] / / [id number] documented as of this encounter Advance Directives [...] the patient have Health Care Power of Anti Air Warfare Operations Officer? No Care Teams Under Baster Relationship Specialty Start Date End Date Hannah Albrecht DO [address] [place] [address] PCP - General Family Medicine 07/21/21 documented as of this encounter
--- OUTSIDE RECORDS SUMMARY | 2024-02-02 09:55 | External Medical Summary | Summary of Care ---
Author Name Unknown Organization [facility] Address [address] [place] [address] Phone [phone] Care Team Providers Care Cocoa Bean Cleaner Name Role Phone Hannah Albrecht Primary Care Provider Reason for Visit * Reason Comments Return Visit Hospital Follow-Up * Evaluate & Treat - Unlimited Visits (Within 30 days (routine)) - Pending Review Specialty Diagnoses / Procedures Referred By Tesfaye t Referred To Contact Nephrology Diagnoses Chronic hyponatremia Daya Boothe MD [address] [facility] [place] [id number] Referral ID Status Reason Start Date Expiration Date Visits Requested Visits Authorized [id number] Pending Review Specialty Services Required 09/22/[phone] Encounter Details Date Type Department Care Team (Late st Contact Info) Description 09/25/2023 9:40 AM EDT Office Visit NephrologySee [address] [place] [address] Marcus Napoles MD [address] [facility] [place] [address] Alcoholic cirrhosis of liver with ascites (HCC)*; Hyponatremia Allergies Active Allergy Reactions Criticality Noted Date Comments Cat Dander Other (Please comment) 07/21/2021 Watery eyes and sneezing documented as of this encounter (statuses as of 09/25/2023) Medications Medication Sig Dispensed Refills Start Date [...] MG/0.1ML Nasal Liquid (Narcan Nasal) Administer 1 [place] into nostril. 0 08/29/2023 Active Ipratropium-Albuterol 0.5-2.5 [...] as of this encounter (statuses as of 09/25/2023) Active Problems Problem Noted Date Diagnosed Date Alcoholic cirrhosis of liver with ascites 2023 Pulmonary emphysema 09/22/2023 Hepatic steatosis 05/17/2022 Tobacco use 05/17/2022 Uncomplicated alcohol dependence 05/17/2022 Pulmonary nodule 05/17/2022 Subarachnoid hemorrhage 05/11/2022 documented as of this encounter (statuses as of 09/25/2023) Immunizations Name Administration Dates Next Due DT [...] Tobacco: Never Alcohol Use Standard Drinks/Week Comments Not Currently 0 (1 standard drink = 0.6 oz [...] Sign Reading Time Taken Comments Blood Pressure 112/67 09/25/2023 9:38 AM EDT Pulse 108 09/25/2023 9:38 AM EDT Temperature 36.9 C (98.4 F) 09/25/2023 9:38 AM ED T Respiratory Rate 18 09/25/2023 9:38 AM EDT Oxygen Saturation 97% 09/25/2023 9:38 AM EDT Inhaled Oxygen Concentration - - Weight 63.2 kg (139 lb 4.8 oz) 09/25/2023 9:38 A M EDT Height - - Body Mass Index 21.82 09/22/2023 9:41 AM EDT documented in this [...] as of this encounter Progress Notes * Marcus Napoles MD - 09/25/2023 10:57 AM EDT Chief complaint------hospital follow-up HPI: Killian Amin is a 38 year old male seen hospital discharge for hyponatremia in the setting ofdecompensated cirrhosis. Past medical history of subarachnoid hemorrhage, intracranial aneurysm, chronic hyponatremia, alcohol withdrawal seizures, emphysema, liver cirrhosis and recently hospitalized at [facility] and discharged on September 14, 2023 During this recent hospital admission he did have pleural tap and also had community-acquired pneumonia and has finished his antibiotics course. Pleural fluid was parapneumonic effusion with pneumonia. Sodium was 125 on admission but by discharge was within low end of normal. The dose of diuretics was lowered at the time of discharge. Since being discharged he did have blood work as an outpatient on September 22, 2023 which would be 8 days after discharge and shows normal electrolytes and kidney function He has also seen general surgeon for umbilical hernia. As per surgery note there is no plan for immediate surgery. Review of Systems: Twelve systems reviewed and is otherwise negative. Please see HPI for positive Past Medical History: Diagnosis Date Allergic rhinitis due to other allergen Asthma, allergic Back disorder Past Surgical History: Procedure Laterality Date CAROTID (INTERNAL) ARTERY CATHETHER PLACEMENT N/A 05/11/2022 CATHETER PLACEMENT INTERNAL CAROTID ARTERY performed by Bandar Okeefe MD at OR [facility] VERTEBRAL ARTERY CATHETER PLACEMENT N/A 05/11/2022 CATHETER PLACEMENT VERTEBRAL ARTERY, performed by Bandar Okeefe MD at OR [facility] Review of patient's allergies indicates: Allergen Reactions Cats [Cat Dander] Other (Please comment) Watery eyes and sneezing Current Outpatient Medications Medication Sig Dispense Refill Folic Acid 1 MG Oral Tablet TAKE 1 TABLET BY MOUTH ONCE DAILY IN THE MORNING Pantoprazole Sodium 40 MG Oral Tablet Delayed Release (Protonix) Take 1 Tablet by mouth in the morning and 1 Tablet in the evening. Torsemide 20 MG Oral Tablet (Demadex) Take 0.5 Tablets by mouth in the morning. Potassium Chloride [place] ER 20 MEQ Oral Tablet Extended Release Take 10 mEq by mouth in the morning. Lactulose 10 GM/15ML Oral Solution (Constulose) Take 45 mL by mouth in the morning and 45 mL beforebedtime. For a goal of 3-4 bowls movements per day. Lidocaine 5 % External Patch (Lidoderm) Apply 1 Patch topically to affected area. Naloxone HCl 4 MG/0.1ML Nasal Liquid (Narcan Nasal) Administer 1 [place] into nostril. Ipratropium-Albuterol 0.5-2.5 (3) MG/3ML Inhalation Solution (Duoneb) Inhale 3 mL by mouth every 6 hours as needed for Wheezing. 3 mL 6 Ipratropium-Albuterol 20-100 MCG/ACT Inhalation Aerosol Solution (Combivent Respimat) Inhale 1 Puffby mouth in the morning and 1 Puff at noon and 1 Puff in the evening and 1 Puff before bedtime. 4 g6 Multivitamin Adult Oral Tablet Take 1 Tablet by mouth in the morning. (Patient not taking: Reportedon 09/25/2023) Magnesium Oxide 400 (241.3 Mg) MG Oral Tablet Take 400 mg by mouth in the morning. (Patient not taking: Reported on 09/25/2023) Spironolactone 50 MG Oral Tablet (Aldactone) Take 1 Tablet by mouth in the morning and 1 Tablet before bedtime. (Patient not taking: Reported on 09/25/2023) HYDROcodone-Acetaminophen 5-325 MG Oral Tablet 1 Tablet. (Patient not taking: Reported on 09/25/2023) No current facility-administered medications for this visit. Family History Problem Relation Age of Onset Heart Disorder Grandfather (Paternal) [place] Diabetes Grandfather (Maternal) Asthma Uncle (Unspecified) Asthma Uncle (Unspecified) Social History Socioeconomic History Marital status: Single Spouse name: Not on file Number of children: Not on file Years of education: Not on file Highest education level: Not on file Occupational History Not on file Tobacco Use Smoking status: Every Day Smokeless tobacco: Never Vaping Use Vaping Use: Never used Substance and Sexual Activity Alcohol use: Not Currently Drug use: Never Sexual activity: Not on file Other Topics Concern Not on file Social History Narrative Not on file Social Determinants of Health Financial Resource Strain: Not on file Food Insecurity: Not on file Transportation Needs: Not on file Physical Activity: Not on file Stress: Not on file Social Connections: Not on file Intimate Partner Violence: Not on file Housing Stability: Not on file Filed Vitals: 09/25/23 0938 BP: 112/67 Pulse: 108 Resp: 18 Temp: 36.9 C (98.4 F) TempSrc: Tympanic SpO2: 97% Weight: 63.2 kg (139 lb 4.8 oz) PHYSICAL EXAM: GENERAL: Well-appearing, Alert, in no acute distress. EYES: PERRL, conjunctivae icteric. ENT: Mucous membranes moist, oropharynx clear. NECK: Supple, no JVD. LYMPH: No cervical or supraclavicular lymphadenopathy. LUNGS: Clear to auscultation bilaterally, no respiratory distress. CARDIAC: Regular rate and rhythm, normal S1/S2, no murmurs, rubs, or gallops. ABDOMEN: Soft, Mildly distended, bowel sounds present. EXT/MSK: No edema. SKIN: No rash, no jaundice. NEURO: Oriented x3, No tremor, no asterixis. LABS/STUDIES: Recent Labs Units 09/22/23 1018 08/18/23 0138 12/13/22 1703 05/17/22 0801 05/12/22 0518 SODIUM - [facility] mmol/L 136 -- 134* 140 135 POTASSIUM - [facility] mmol/L 4.8 -- 3.6 4.7 3.1* POTASSIUM-OUTSIDE LAB mmol/L -- 3.5 -- -- -- CHLORIDE - [facility] mmol/L 97* -- 98 99 100 CO2 - [facility] mmol/L 25 -- 27 29 25 BUN - [facility] mg/dL 6 -- 8 5* 2* CREATININE - [facility] mg/dL 0.5* -- 0.6 0.6 0.5* Recent Labs Units 09/22/23 1018 05/17/22 0801 05/12/22 0518 WBC K/uL 10.10 6.35 7.20 HGB g/dL 9.2* 15.1 12.0* PLT K/uL 622* 243 71* Recent Labs Units 09/22/23 1018 12/13/22 1703 05/17/22 0801 05/12/22 0518 CALCIUM - [facility] mg/dL 10.1 8.3* 10.0 8.3* PHOSPHORUS - [facility] mg/dL -- 4.0 5.1* 2.1* No results for input(s): "HGBA1C" in the last 67353 hours. No results for input(s): "MICROALBUMIN", "PROCRRATIO" in the last 55772 hours. ASSESSMENT/PLAN: Alcoholic cirrhosis of liver with ascites (HCC) Patient with decompensated cirrhosis complicated by ascites. He had paracentesis in the past. Recent hospital admission with pneumonia as well as pleural effusion in the right lung reviewed. Did havesome hyponatremia issues while in the hospital. Dose of torsemide was actually lowered at the time of discharge on September 14, 2023. Even with lower dose of diuretics it does not appear to have significant ascites or edema. Hyponatremia Due to chronic alcohol use. Most recent blood work from last week actually shows normal sodium of 136 potassium 4.8 BUN 6 and acreatinine of 0.5. Given this and exam showing lack of edema or major ascites will continue currentdose of torsemide 10 daily and spironolactone 12.5 daily. Follow Up: Return in about 6 months (around 03/26/2024) for Clinic Visit. | For: Clinic Visit Marcus Napoles MD documented in this encounter Nursing Notes * Tatum Solis LPN - 09/25/2023 9:36 AM EDT Patient identified by verbal name and date of .Hospital follow up [facility] Last seen by Dr Mcdonough 12/19/22 Last labs 09/21/22 documented in this encounter Plan of Treatment Upcoming Encounters Date Type Department Care Team (Late st Contact Info) Description 10/09/2023 9:20 AM EDT Office Visit Family Practice [facility] [address] [facility] [place] [address] Hannah Albrecht DO [address] [facility] [place] [address] 12/27/2023 12:00 PM EDT Office Visit Gastroenterology, [facility] [address] [place] [address] Veronica Bustillos CRNP [address] [place] [address] 06/05/2024 11:20 AM EST Office Visit Nephrology, [facility] [address] [facility] [place] [address] Marcus Napoles MD [address] [facility] [place] [address] Scheduled Referrals Name Type Priority Associated Diagnoses Orde r Schedule NEPHROLOGY REFERRAL OP Referral Within 30 days (routine) Chronic hyponatremia Ordered: 09/22/2023 Health Maintenance Due Date Last [...] this encounter Medical Devices Implanted Type Area Rope Tow Operator Device Identifier Shelf Expiration Date Model / Serial / Lot Angioseal Vip 6 Fr - [id number] Implanted:Qty : 1 on 05/11/2022 by Bandar Okeefe MD at OR [facility] Right: Groin [employer] [id number] 02/16/2023 [id number] / / [id number] documented as of this encounter Visit Diagnoses Diagnosis Alcoholic cirrhosis of liver with ascites (HCC)- Primary Alcoholic cirrhosis of liver Hyponatremia Hyposmolality and/or hyponatremia documented in this encounter [...] the patient have Health Care Power of Picture Enlarger? No Care Teams Cocoa Bean Cleaner Relationship Specialty Start Date End Date Hannah Albrecht DO [address] [place] [id number] PCP - General Family Medicine 07/21/21 documented as of this encounter
--- OUTSIDE RECORDS SUMMARY | 2024-02-02 09:56 | External Medical Summary ---
Author Name Unknown Address Unknown Organization K09:[facility] [place] [address] Laboratory Report Ordering Provider Test Date Status JO GIL 09/22/2023 10:18:02 Final Observation Date Value Abnormality Reference (Units ) Status WBC, Total 09/22/2023 10:18:02 10.10 4.00-10.8 0 (K/uL) Final RBC 09/22/2023 10:18:02 2.87 4.50-5.25 (M/uL) Final Hemoglobin 09/22/2023 10:18:02 9.2 Below low normal 14 .0-16.8 (g/dL) Final HCT 09/22/2023 10:18:02 28.6 Below low normal 40. 0-48.4 (%) Final MCV 09/22/2023 10:18:02 99.7 82.0-99.5 (fL) Final MCH 09/22/2023 10:18:02 32.1 27.0-34.0 (pg) Final MCHC 09/22/2023 10:18:02 32.2 32.0-36.0 (g/dL) Final RDW 09/22/2023 10:18:02 15.6 11.5-15.5 (%) Final Platelets 09/22/2023 10:18:02 622 Above high normal 14 0-400 (K/uL) Final MPV 09/22/2023 10:18:02 7.8 6.6-11.1 ( fL) Final Performing Location [facility] [place] [address]
--- OUTSIDE RECORDS SUMMARY | 2024-02-02 09:56 | External Medical Summary | Summary of Care ---
Author Name Unknown Organization [facility] Address [address] [place] [address] Phone [phone] Care Team Providers Care Adult Specialist Name Role Phone Hannah Albrecht Primary Care Provider Encounter Details Date Type Department Care Team (Late st Contact Info) Description 09/13/2023 Result Scan Unspecified Department <No scans attached> Allergies Active Allergy Reactions Criticality Noted Date Comments Cat Dander Other (Please comment) 07/21/2021 Watery eyes and sneezing documented as of this encounter (statuses as of 09/15/2023) Medications Medication Sig Dispensed Refills Start Date [...] as of this encounter (statuses as of 09/15/2023) Active Problems Problem Noted Date Diagnosed Date Hepatic steatosis 05/17/2022 Tobacco use 05/17/2022 Uncomplicated alcohol dependence 05/17/2022 Pulmonary nodule 05/17/2022 Subarachnoid hemorrhage 05/11/2022 documented as of this encounter (statuses as of 09/15/2023) Immunizations Name Administration Dates Next Due DT [...] Care Team (Late st Contact Info) Description 09/18/2023 11:20 AM EDT Office Visit [facility] [address] [place] [address] Hannah Albrecht DO [address] [facility] [place] [address] 10/09/2023 9:20 AM EDT Office Visit [facility] [place] [address] [place] [address] Hannah Albrecht DO [address] [place] [address] Health Maintenance Due Date Last Done Comments [...] this encounter Medical Devices Implanted Type Area Nursing Student Device Identifier Shelf Expiration Date Model / Serial / Lot Angioseal Vip 6 Fr - [id number] Implanted:Qty : 1 on 05/11/2022 by Bandar Okeefe MD at [place] [facility] Right: Groin [employer] [place] [id number] 02/16/2023 [id number] / / [id number] documented as of this encounter Procedures Procedure Name Priority Date/Time Associated Diagnosis Comments RADIOLOGY SCANNED RESULT 09/13/2023 documented in this encounter Results * RADIOLOGY SCANNED RESULT (09/13/2023) 09/13/2023 No Physician Data Unknown DIAGNOSTIC RAD IOLOGY SERVICES documented in this encounter Advance Directives Latest [...] the patient have Health Care Power of Briquette Operator? No Care Teams Adult Specialist Relationship Specialty Start Date End Date Hannah Albrecht [place] [address] [place] [address] PCP - General Family Medicine 07/21/21 documented as of this encounter
--- OUTSIDE RECORDS SUMMARY | 2024-02-02 09:56 | External Medical Summary | Summary of Care ---
Author Name Unknown Organization [facility] Address [address] [place] [address] Phone [phone] Care Team Providers Care Traffic Administrator Name Role Phone Hannah Albrecht Primary Care Provider Reason for Visit * Reason Onset Date Comments Hospital Follow-Up 09/15/2023 NICOLLE Encounter Details Date Type Department Care Team (Late st Contact Info) Description 09/15/2023 Telephone [place] [address] [place] [address] Alyssa Salinas RN Hospital Follow-Up (NICOLLE) Allergies Active Allergy Reactions Criticality Noted Date [...] encounter Miscellaneous Notes * Telephone Encounter - Alyssa Salinas RN - 09/15/2023 12:49 PM EDT Images from the original note were not included. Transitions of Care Note Reason for Referral:Recent Admission Phone visit for follow up: NICOLLE #1 Admitted to: [facility], Date: 09/12/2023 Discharged to: Home, Date: 09/14/2023 Diagnosis driving hospitalization: Pleural Effusion with Pneumonia Attempted NICOLLE - no answer. Unable to leave message - mailbox full. Alyssa Salinas RN documented in this encounter Plan of Treatment Upcoming Encounters Date Type Department Care Team (Late st Contact Info) Description 09/18/2023 11:20 AM EDT Office Visit [facility] [address] [place] [address] Hannah Albrecht, [address] [place] [address] 10/09/2023 9:20 AM EDT Office Visit [facility] [place] [address] [place] [address] Hannah Albrecht DO [address] [place] [address] Health Maintenance Due Date Last Done Comments [...] this encounter Medical Devices Implanted Type Area Tooling Supervisor Device Identifier Shelf Expiration Date Model / Serial / Lot Angioseal Vip 6 Fr - [id number] Implanted:Qty : 1 on 05/11/2022 by Bandar Okeefe MD at [facility] Right: [email or web address] [id number] 02/16/2023 [id number] / / [id number] documented as of this encounter Advance Directives [...] the patient have Health Care Power of Director Of Research And Development? No Care Teams Traffic Administrator Relationship Specialty Start Date End Date Hannah Albrecht DO [address] [place] [address] PCP - General Family Medicine 07/21/21 documented as of this encounter
--- OUTSIDE RECORDS SUMMARY | 2024-02-02 09:56 | External Medical Summary | Summary of Care ---
Author Name Unknown Organization [facility] Address [address] [place] [address] Phone [phone] Care Team Providers Care Fire Safety Manager Name Role Phone Hannah Albrecht Primary Care Provider Reason for Visit * Reason Onset Date Comments Hospital Follow-Up 09/15/2023 NICOLLE Encounter Details Date Type Department Care Team (Late st Contact Info) Description 09/15/2023 Telephone [place] [address] [place] [address] Alyssa Salinas RN Hospital Follow-Up (NICOLLE) Allergies Active Allergy Reactions Criticality Noted Date Comments Cat Dander Other (Please comment) 07/21/2021 Watery eyes and sneezing documented as of this encounter (statuses as of 09/18/2023) Medications Medication Sig Dispensed Refills Start Date [...] as of this encounter (statuses as of 09/18/2023) Active Problems Problem Noted Date Diagnosed Date Hepatic steatosis 05/17/2022 Tobacco use 05/17/2022 Uncomplicated alcohol dependence 05/17/2022 Pulmonary nodule 05/17/2022 Subarachnoid hemorrhage 05/11/2022 documented as of this encounter (statuses as of 09/18/2023) Immunizations Name Administration Dates Next Due DT [...] Salinas RN - 09/15/2023 12:49 PM EDT Transitions of Care Note Reason for Referral:Recent Admission Phone visit for follow up: NICOLLE #1 Admitted to: [facility], Date: 09/12/2023 Discharged to: Home, Date: 09/14/2023 Diagnosis [address] hospitalization: Pleural Effusion with Pneumonia Attempted NICOLLE - no answer. Unable to leave message - mailbox full. Alyssa Salinas RN Transitions of Care Note Reason for Referral:Recent Admission Phone visit for follow up: NICOLLE #2 Admitted to: [facility], Date: 09/12/2023 Discharged to: Home, Date: 09/14/2023 Diagnosis driving hospitalization: Pleural Effusion with Pneumonia Attempted NICOLLE - No answer. Left message to return call [phone] or . Reminded of PCP appointment 09/21/2023. Alyssa Salinas RN documented in this encounter Plan of Treatment Upcoming Encounters Date Type Department Care Team (Late st Contact Info) Description 09/21/2023 11:00 AM EDT Office Visit [facility] [address] [place], [place] [id number] Hannah Albrecht DO [address] [facility] [place] [address] 10/09/2023 9:20 AM EDT Office Visit Family Practice [facility] [place] [address] [place] [address] Ambrocio Young Dalila, DO [address] [facility] [place] [address] Health Maintenance Due Date Last Done Comments [...] 2023 11/04/2020, 10/14/2020 Influenza Vaccine (FLU shot) (Season Ended) 2024 Hepatitis B Completed 07/16/1998, 01/17, 12/29/1997 MENINGOCOCCAL (MENACTRA/MENVEO) Aged Out 01/31/2002 No longer eligible based on patient's age to complete this topic GARDASIL-HPV IMMUNIZATION SERIES Aged Out No longer eligible based on patient's age to complete this topic documented as of this encounter Medical Devices Implanted Type Area Inspector Quality Assurance Device Identifier Shelf Expiration Date Model / Serial / Lot Angioseal Vip 6 Fr - [id number] Implanted:Qty : 1 on 05/11/2022 by Bandar Okeefe MD at [place] [facility] Right: Ex[employer]oc[employer] [id number] 02/16/2023 [id number] / / [id number] documented as of this encounter Advance Directives [...] the patient have Health Care Power of Ged Instructor? No Care Teams Fire Safety Manager Relationship Specialty Start Date End Date Hannah Albrecht DO [address] [place] [address] PCP - General Family Medicine 07/21/21 documented as of this encounter
[2024-02-02] MEDS: D5W AND 1/2NSS 1,000 ML IV ONE (10:10)
[2024-02-02] MEDS: MULTIVITAMIN TAB PO SCH (12:14)
[2024-02-02] MEDS: ACETAMINOPHEN 500 MG TAB PO PRN (12:41)
[2024-02-02] MEDS: LORazepam 1 MG in SYRINGE 0.5 ML IV PRN (13:23)
[2024-02-02] MEDS ORDERED: LORazepam 1 MG TAB PO PRN ×2 (15:05)
[2024-02-02] MEDS ORDERED: Ativan PO Alcohol Withdrawal--Active Protocol PO PRN (15:05)
--- NOTE | 2024-02-02 15:06 | Communication Note ---
Date of Service: February 02, 2024 Patient seen and examined at bedside. He is comfortable; not in distress. He denies any tremors or hallucination. Vital signs are stable and he is saturating well on room air. On physical exam; Constitutional: Alert oriented x 3; not in distress. Jaundice present Respiratory: Bilateral vesicular breath sound Cardiovascular: RRR, no murmur, no edema Vessels: no JVD or carotid bruit Chest: normal inspection of chest Abdomen: normal bowel sounds, soft, nontender, no hepatosplenomegaly Musculoskeletal: no cyanosis or clubbing, extremities motor strength 5/5 Skin: no rashes, warm and dry normal turgor Neurologic: PERRL, EOMI, accommodation nl, no face palsy, no dysarthria CN's II- XI intact bilaterally and moves all extremities Psychiatric: A+Ox3, euthymic affect Assessment/plan Alcohol use disorder Alcoholic hepatitis History of alcohol use disorder Blood alcohol level elevated on admission Liver enzymes elevated Ultrasound of the liver did not show CBD dilation Evaluated by GI; recommend MRCP. Continue alcohol withdrawal protocol with Ativan CMP daily Please note the above document was generated using voice recognition software. It may contain grammatical, syntax or spelling errors. Any formal questions or concerns about the content, text or information contained within the body of this dictation should be directly addressed to the provider for clarification
--- NOTE | 2024-02-02 15:28 | Electrocardiogram Report ---
Test Reason : Blood Pressure : */* mmHG Vent. Rate : 93 BPM Atrial Rate : 93 BPM P-R Int : 134 ms QRS Dur : 104 ms QT Int : 386 ms P-R-T Axes : 68 40 65 degrees QTcB Int : 479 ms Normal sinus rhythm Possible Left atrial enlargement Incomplete right bundle branch block Borderline ECG When compared with ECG of 11-Sep-2023 19:50, No significant change was found Confirmed by Brady Markham ([id number]) on 02/02/2024 3:27:59 PM Referred By: REFERRED SELF Confirmed By: Brady Markham
[2024-02-02] MEDS: THIAMINE HCL 100 MG/ML 2 ML VIAL IM STA (15:33)
--- NOTE | 2024-02-02 19:30 | Magnetic Resonance Report ---
MRCP CLINICAL HISTORY: Rule out biliary tract pathology. Elevated liver function tests. TECHNIQUE: Utilizing a 1.5 Rosie magnet and dedicated coil, multiplanar, multiecho imaging of the [facility] er abdomen was performed utilizing heavily T2 weighted pulsing sequences without IV contrast. COMPARISON STUDY: MRCP September 13, 2021. Right upper quadrant ultrasound performed earlier today. CT o f the abdomen and pelvis September 11, 2023. FINDINGS: The liver is enlarged, measuring 21.6 cm in craniocaudal dimension. No hepatic lesions are identified on unenhanced exam. The main, left and right portal veins are grossly patent. There is nod ular contour of the liver surface. Trace perihepatic fluid is present. There is trace fluid adjacent to the pancreatic tail and the left upper quadrant. No intra or extrahepatic biliary ductal dilatatio n is present. Common bile duct measures 3 mm in caliber. No common bile duct calculi identified. Ther e is no pancreatic ductal dilatation. Minimal gallbladder wall thickening is present. No convincing e vidence for acute cholecystitis. Spleen, adrenal glands and kidneys are unremarkable. There is no hyd ronephrosis. The caliber of visualized small and large bowel are normal. There is no abdominal lympha denopathy. There are no abdominal fluid collections. IMPRESSION: 1. No biliary ductal dilatation. No common bile duct calculi identified. 2. Hepatomegaly. Cirrhotic appearing liver. No hepatic lesions on unenhanced exam. 3. Trace fluid adjacent to the pancreatic tail. This could be correlated with serum lipase level to e xclude acute pancreatitis. ACT 112: Negative or not required by law. Electronically signed by: Octavio Montes M.D. 02/02/2024 7:27 PM
[2024-02-02] MEDS: LORazepam 1 MG TAB PO PRN (22:26)
[2024-02-03] MEDS: MELATONIN 3 MG TAB PO PRN (00:46)
[2024-02-03 07:13] LABS: Albumin Globulin Ratio 1.3 (0.9-2); Albumin Level 3.3 gm/dl (3.4-5.0); Bilirubin,Total 13.4 mg/dl (0.2-1.0); Calcium 8.4 mg/dl (8.6-10.3); Creatinine Clr Calc Pharmacy 126.5 ml/min; Est GFR (African American) 139.2 ml/min; Est GFR (Non-African American) 120.1 ml/min; Globulin 2.6 gm/dl (2.5-4.0); Magnesium 2.1 mg/dl (1.7-2.4); Potassium 3.3 mmol/L (3.5-5.1); Total Protein 5.9 gm/dl (6.0-8.3)
[2024-02-03] MEDS: POTASSIUM CHLORIDE / WTR 10 MEQ/100 ML PLCT IV SCH (07:40)
[2024-02-03 07:44] LABS: Hematocrit (blood only) 24.7 % (42.0-52.0); Mean Corpuscular Hemoglobin 36.2 pg (25.0-34.0); Mean Corpuscular Hgb Conc 40.5 g/dL (32.0-36.0); Mean Corpuscular Volume 89.5 fL (80.0-100.0); Mean Platelet Volume 10.6 fL (9.4-12.4); Platelet Count 119 K/uL (130-400); RDW Coefficient of Variation 25.1 % (11.5-14.5); RDW Standard Deviation 79.6 fL (36.4-46.3); Red Blood Count 2.76 M/uL (4.70-6.10); White Blood Count 5.72 K/ul (4.8-10.8)
[2024-02-03 07:45] LABS: Anisocytosis Present; Basophils # (auto) 0.09 K/uL (0.00-0.20); Basophils % (auto) 1.6 %; Eosinophils # (auto) 0.22 K/uL (0.00-0.50); Eosinophils % (auto) 3.8 %; Immature Granulocytes # (auto) 0.02 K/uL (0.01-0.20); Immature Granulocytes % (auto) 0.3 %; Lymphocytes # (auto) 1.43 K/uL (1.20-3.40); Macrocytosis Present; Monocytes # (auto) 0.61 K/uL (0.11-0.59); Monocytes % (auto) 10.7 %; Neutrophils # (auto) 3.35 K/uL (1.40-6.50); Neutrophils % (auto) 58.6 %; Target Cells 2+
--- NOTE | 2024-02-03 08:22 | Hospitalist Progress Note ---
Date of Service February 03, 2024 Assessment & Plan (1) Acute hyponatremia: (2) Alcoholic hepatitis: Plan Patient is a 39-year-old male who presented to the ED with a possible syncopal episode. He was intoxicated on presentation; found to have hyponatremia and alcoholic hepatitis for which he was admitted to the hospital. Hyponatremia Alcoholic hepatitis Alcohol use disorder Alcohol withdrawal Hypomagnesemia Hypokalemia Patient presented with serum sodium of 123 Liver enzymes elevated with AST/ALT ratio of greater than 2 just 1; ALP elevated as well Patient underwent evaluation by GI during the hospitalization. Recommend MRCP due to elevated ALP; no biliary duct dilation was seen. Patient had cirrhotic appearing liver without hepatic lesion. Serum sodium improved to 131 with IV hydration. Patient was also treated for alcohol withdrawal with Ativan; he did not have any tremors or hallucination. Electrolytes are replaced Continue to monitor for withdrawal symptoms Full code DVT prophylaxis SCDs Time spent evaluating patient, direct bedside care, chart review, placing orders, interpretation of diagnostic studies, discussion with consultants, patient, and family members, as well as other required patient management a ctivities is 50 minutes Please note the above document was generated using voice recognition software. It may contain grammatical, syntax or spelling errors. Any formal questions or concerns about the content, text or information contained within the body of this dictation should be directly addressed to the provider for clarification Admission and Anticipated Discharge Date Admission Date: February 02, 2024 Subjective Patient seen and examined at bedside. Comfortable; not in distress. Denies fever, chills, chest pain, shortness of breath, abdominal pain or urinary symptoms. No significant overnight events No signs or symptoms of alcohol withdrawal Review of Systems Review of Systems: All systems reviewed & are unremarkable except as noted in Subjective Physical Exam Physical Exam: GENERAL: Awake alert oriented x 3; not in distress. No tremor/hallucination SKIN: Pallor, warm HEENT: Pale palpebral conjunctivae, no ptosis, dry buccal mucosa NECK : Supple, no tenderness CHEST : Decreased breath sounds, no tenderness HEART : RRR, no obvious murmurs ABDOMEN: No distention, nontender EXTREMITIES : no LE swelling, no LE tenderness, no other conspicuous deformities noted Results & Data Results & Data Vital Signs (Past 12 Hours) Vital Signs Temp Pulse Pulse Resp BP BP Pulse Ox 02/03/24 07:42 36.9 C 95 H 20 116/76 95 02/03/24 07:33 02/03/24 05:53 96 H 02/03/24 02:37 36.9 C 100 H 16 113/70 95 02/02/24 23:06 37 C 84 16 135/78 96 02/02/24 22:18 120 H 02/02/24 21:55 102 H O2 Del Method 02/03/24 07:42 Room Air 02/03/24 07:33 Room Air 02/03/24 05:53 02/03/24 02:37 Room Air 02/02/24 23:06 Room Air 02/02/24 22:18 02/02/24 21:55
[2024-02-03] MEDS: POTASSIUM CHLORIDE PWD 20 MEQ PACK PO SCH (08:26)
[2024-02-03] MEDS: FOLIC ACID 1 MG TAB PO SCH (08:28)
[2024-02-03] MEDS: THIAMINE HCL 100 MG TAB PO SCH (08:28)
[2024-02-03] MEDS ORDERED: FOLIC ACID 1 MG TAB PO SCH (09:00)
--- NOTE | 2024-02-03 09:41 | Gastroenterology Progress Note ---
Date of Service February 03, 2024 Assessment & Plan (1) Alcoholic hepatitis: Plan: He seems to be stable now although sodium is still a little low. He has shown us that he does not want to stop drinking so would just support problems as they occur. I emphasized to him the need to quit altogether. Admission and Anticipated Discharge Date Admission Date: February 02, 2024 Subjective Feeling perfectly fine. Interested in going home. No pain, no fever and no signs of withdrawal. WBC normal, LFT's stable, MRCP unremarkable. Physical Exam Physical Exam: Appears comfortable, still obviously icteric Results & Data Vital Signs (Past 12 Hours) Vital Signs Temp Pulse Pulse Resp BP BP Pulse Ox 02/03/24 07:42 36.9 C 95 H 20 116/76 95 02/03/24 07:33 02/03/24 05:53 96 H 02/03/24 02:37 36.9 C 100 H 16 113/70 95 02/02/24 23:06 37 C 84 16 135/78 96 02/02/24 22:18 120 H 02/02/24 21:55 102 H O2 Del Method 02/03/24 07:42 Room Air 02/03/24 07:33 Room Air 02/03/24 05:53 02/03/24 02:37 Room Air 02/02/24 23:06 Room Air 02/02/24 22:18 02/02/24 21:55
[2024-02-03 12:42] VITALS: BP 113/71; RESP 18; TEMP 97.9; O2SAT 97
[2024-02-03 13:01] VITALS: PULSE 95
--- NOTE | 2024-02-03 13:20 | Discharge Summary ---
Date of Service February 03, 2024 Admission HPI Per Admitting Provider History obtained from patient and records. Limited history from patient secondary to intoxicated state. Medical history significant for alcoholic cirrhosis, gastritis, history alcohol withdrawal seizures, SAH, intracranial aneurysm, chronic hyponatremia, emphysema as per records, ongoing alcohol/ tobacco abuse, chronic anemia ( baseline hemoglobin 9), medical noncompliance. Last confinement October 2023 for acute on chronic hyponatremia in the setting of alcohol abuse and community-acquired pneumonia. Patient has not seen PCP since discharge from hospital. Patient shaky all day. Unwitnessed syncopal event at home leading to head trauma. Transient headache symptoms. Denies chest pain, SOB, abdominal pain. 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 Admission Exam Per Admitting Provider GENERAL: chronically ill, looks older than stated age, flat affect, intoxicated, no respiratory distress SKIN: Pallor, warm HEENT: Pale palpebral conjunctivae, no ptosis, dry buccal mucosa NECK : Supple, no tenderness CHEST : Decreased breath sounds, no tenderness HEART : RRR, no obvious murmurs ABDOMEN: No distention, nontender EXTREMITIES : no LE swelling, no LE tenderness, no other conspicuous deformities noted NEUROLOGIC : Intoxicated, no facial asymmetry, no other gross focality Principal Diagnosis Hyponatremia Alcoholic hepatitis Alcohol use disorder Alcohol withdrawal Hypomagnesemia Hypokalemia Discharge Exam GENERAL: Awake alert oriented x 3; not in distress. No tremor/hallucination SKIN: Pallor, warm HEENT: Pale palpebral conjunctivae, no ptosis, dry buccal mucosa NECK : Supple, no tenderness CHEST : Decreased breath sounds, no tenderness HEART : RRR, no obvious murmurs ABDOMEN: No distention, nontender EXTREMITIES : no LE swelling, no LE tenderness, no other conspicuous deformities noted Discharge Data Allergies Allergy/AdvReac Type Severity Reaction Status Date / Time No Known Allergies Allergy Verified 02/02/24 04:05 Consultations 02/02/24 04:02 ED Decision to Admit Stat 02/02/24 07:34 Consult Gastroenterology Routine 02/02/24 09:38 Consult Gastroenterology Routine Ordered Studies 02/02/24 04:36 CT head/brain wo con Stat 02/02/24 07:34 US liver Urgent 02/02/24 15:00 MR MRCP Urgent Hospital Course (1) Acute hyponatremia: (2) Alcoholic hepatitis: Plan Patient is a 39-year-old male who presented to the ED with a possible syncopal episode. He was intoxicated on presentation; found to have hyponatremia and alcoholic hepatitis for which he was admitted to the hospital. Hyponatremia Alcoholic hepatitis Alcohol use disorder Alcohol withdrawal Hypomagnesemia Hypokalemia Patient presented with serum sodium of 123 Liver enzymes elevated with AST/ALT ratio of greater than 2 just 1; ALP elevated as well Patient underwent evaluation by GI during the hospitalization. Recommend MRCP due to elevated ALP; no biliary duct dilation was seen. Patient had cirrhotic appearing liver without hepatic lesion. Serum sodium improved to 131 with IV hydration. Patient was also treated for alcohol withdrawal with Ativan; he did not have any tremors or hallucination at discharged. Electrolytes are replaced Patient to follow up with PCP Please note the above document was generated using voice recognition software. It may contain grammatical, syntax or spelling errors. Any formal questions or concerns about the content, text or information contained within the body of this dictation should be directly addressed to the provider for clarification Total Time Total Time Spent Total Time Spent (In Minutes): 35 Total Time Includes: Examination of the Patient, Discharge Planning, Medication Reconciliation, Communication With Other Providers and Other Discharge Plan Discharge Items Patient Disposition: Home - Self-Care Reason For Visit: HYPONATREMIA Discharge Diagnosis: Hyponatremia Alcoholic hepatitis Alcohol use disorder Alcohol withdrawal Hypomagnesemia Hypokalemia Activity: Resume your previous activity Non-emergency contact: Primary Care Provider Call non-emergency contact if: you have any medication questions and your symptoms worsen Follow-up/Referrals: PCP,NO [Primary Care Provider] - Diet: Regular Addtl Attending Provider Instructions: You were admitted to the hospital due to low sodium level. You are treated with IV hydration with improvement in your sodium level. You also have hepatitis from alcohol use. Please continue to try to maintain abstinence. Please drink Pedialyte for dehydration and maintain good nutrition. Follow-up with your primary care doctor Pending Studies at Discharge: No Stand-Alone Forms: [employer], Smoking Cessation Medications and DC Order Prescriptions: Continued Multi Vitamin 1 tab PO DAILY Discharge Orders: Discharge Order (Routine); Ordered 02/03/24 Ordered By: Osvaldo Pettit/Other Patient Handouts: The Impact of Alcoholism, Alcoholism Resources, Dehydration Admission Data Admit Date/Time: 02/02/24 05:44 Attending Provider: Osvaldo Baldwin Admit Provider: Shun Mckeon Primary Care Provider: PCP,CASS Other Providers: Shun Mckeon; Michael Sharp I; Quentin Guido Other Interventions: Discharge Summary Assessment (RN) Last Done: 02/03/24 13:00
[2024-02-05 07:08] LABS: Pappenheimer Bodies 1+
== END 2024-02-03 13:06 | disposition home or self-care (01) | DRG 641 ==
LOC: ED 01:57 → 2N 05:44